=== PATIENT | female | born 1955 | race Caucasian/White ===

== ENCOUNTER 2016-02-29 20:37 | Inpatient (IN) | payer OTHER ==
[~2016-02-29] VITALS: Ht 154.9 cm; Wt 59.6 kg
[~2016-02-29 20:37] MED LIST: ALPR0.5T PO; ASPI81TA50 PO; CA C1TAB38 PO; CANA100T PO; CELE200C PO; CRAN200C PO; CYAN100T PO; DICL100G7 TP; DULO60CA6 PO; GABA-585 PO; GLIM1TAB2 PO; INSU100I17 SQ; INSU100I9 SQ; INSU100V13 SQ; INSU100V4 SQ; LIDO700A4 TP; LOSA25TA PO; LOSA25TA4 PO; MELO-150 PO; MULT-245 PO; OMEG1CAP6 PO; OXYC-244 PO; OXYC-250 PO; OXYC-323 PO; OXYC10TA PO; OXYC1TAB7 PO; PANT40TA5 PO; PENT400T2 PO; PRAV10TA2 PO; PRAV40TA2 PO; SERT25TA PO; SITA100T PO; trental
--- NOTE | 2016-02-29 21:27 | PHYS DOC ---
Past Medical History Past Medical History: Diabetes-Type II, Hypertension Past Surgical History: Appendectomy, Cholecystectomy, Hysterectomy, Other Additional Past Surgical Histo: ectopic pregnancies x2, pulmonary embolism, ABD aortic bypass w bifurcation Alcohol Use: None Drug Use: None Adult General Chief Complaint Chief Complaint: HYPOGLYCEMIA HPI HPI Patient is a 60 year old female who presents with complaint of generalized weakness. Patient was brought to the emergency department by EMS. Per report, the patient has had 2 visits by EMS today for low blood sugar. The patient was found to be significantly altered on both visits. This morning patient was found have a blood sugar of 14 and was given IV dextrose with improvement in blood sugar and mental status. At that time the patient denied transfer for further evaluation. The patient again was found by family to have altered mental status earlier this evening or patient was again found to have low blood sugar with a level of 17. Patient was administered IV dextrose and improved. The patient is currently complaining of nausea. Patient is also experiencing low back pain which is chronic. Patient rates her pain as 8 out of 10. Patient states that this pain is typical of her chronic pain. Patient is on insulin for treatment of diabetes. Patient states that she has not felt hungry and thus has not been eating today. Family states that the patient has been having more frequent episodes of low blood sugar and altered mental status and has been experiencing frequent falls at home. Review of Systems Review of Systems Constitutional: Generalized weakness, Denies fever or chills [] Eyes: Denies change in visual acuity, redness, or eye pain [] HENT: Denies nasal congestion or sore throat [] Respiratory: Denies cough or shortness of breath [] Cardiovascular: Denies chest pain or edema [] GI: Nausea, denies abdominal pain, vomiting, bloody stools or diarrhea [] : Denies dysuria or hematuria [] Musculoskeletal: Chronic back pain [] Integument: Denies rash or skin lesions [] Neurologic: Confusion, Denies headache, focal weakness or sensory changes [] Endocrine: Denies polyuria or polydipsia [] Current Medications Current Medications Current Medications Medications (Trade) Dose Ordered Sig/Jo Start Time Stop Time Status Last Admin Dose Admin Acetaminophen (Tylenol) 650 mg PRN Q4HRS PRN 02/29/16 22:00 03/01/16 21:59 02/29/16 22:18 650 MG Dextrose/Sodium Chloride (Iv D5% - 1/2 NS) 1,000 ml @ 125 mls/hr 1X ONCE 02/29/16 22:00 03/01/16 05:59 02/29/16 21:51 125 MLS/HR Ondansetron HCl (Zofran) 4 mg 1X ONCE 02/29/16 22:00 02/29/16 22:01 DC 02/29/16 21:50 4 MG Ondansetron HCl 4 mg 4 mg PRN Q8HRS PRN 02/29/16 22:00 03/01/16 21:59 Sodium Chloride (Iv Sodium Chloride 0.9% 1000ml Bag) 1,000 ml @ 75 mls/hr [id number] 02/29/16 22:00 03/01/16 21:59 Allergies Allergies Allergies Coded Allergies Type Severity Reaction Last Updated Verified hydrocodone Adverse Reaction Intermediate LOOPY 03/11/15 Yes Physical Exam Physical Exam Constitutional: Alert, afebrile, appears in mild discomfort. [] HENT: Normocephalic, atraumatic, bilateral external ears normal, oropharynx moist, no oral exudates, nose normal. [] Eyes: PERRLA, EOMI, conjunctiva normal, no discharge. [] Neck: Normal range of motion, no tenderness, supple, no stridor. [] Cardiovascular:Heart rate regular rhythm, no murmur [] Lungs & Thorax: Bilateral breath sounds clear to auscultation [] Abdomen: Bowel sounds normal, soft, no tenderness, no masses, no pulsatile masses. [] Skin: Warm, dry, no erythema, no rash. [] Back: No tenderness, no CVA tenderness. [] Extremities: No tenderness, no cyanosis, no clubbing, ROM intact, no edema. [] Neurologic: Alert and oriented X 3, disoriented to events, normal motor function , normal sensory function, no focal deficits noted. [] Current Patient Data Vital Signs Vital Signs Date Time Temp Pulse Resp B/P Pulse Ox O2 Delivery O2 Flow Rate FiO2 02/29/16 20:41 97.4 100 20 165/107 99 Room Air 97.4 Lab Values Laboratory Tests Test 02/29/16 21:01 02/29/16 21:40 02/29/16 22:25 White Blood Count 15.5x10^3/uL (4.0-11.0) H Red Blood Count 5.08x10^6/uL (3.50-5.40) Hemoglobin 13.8g/dL (12.0-15.5) Hematocrit 41.8% (36.0-47.0) Mean Corpuscular Volume 82fL (79-100) Mean Corpuscular Hemoglobin 27pg (25-35) Mean Corpuscular Hemoglobin Concent 33g/dL (31-37) Red Cell Distribution Width 18.0% (11.5-14.5) H Platelet Count 432x10^3/uL (140-400) H Neutrophils (%) (Auto) 84% (31-73) H Lymphocytes (%) (Auto) 10% (24-48) L Monocytes (%) (Auto) 6% (0-9) Eosinophils (%) (Auto) 0% (0-3) Basophils (%) (Auto) 1% (0-3) Neutrophils # (Auto) 13.0x10^3uL (1.8-7.7) H Lymphocytes # (Auto) 1.5x10^3/uL (1.0-4.8) Monocytes # (Auto) 0.9x10^3/uL (0.0-1.1) Eosinophils # (Auto) 0.0x10^3/uL (0.0-0.7) Basophils # (Auto) 0.1x10^3/uL (0.0-0.2) Segmented Neutrophils % 84% (35-66) H Band Neutrophils % 1% (0-9) Lymphocytes % 12% (24-48) L Monocytes % 3% (0-10) Toxic Granulation Slight Platelet Estimate Adequate (ADEQUATE) Sodium Level 148mmol/L (136-145) H Potassium Level 3.0mmol/L (3.5-5.1) L Chloride Level 105mmol/L (98-107) Carbon Dioxide Level 28mmol/L (21-32) Anion Gap 15 (6-14) H Blood Urea Nitrogen 12mg/dL (7-20) Creatinine 1.0mg/dL (0.6-1.0) Estimated GFR (Cockcroft-Gault) 56.7 BUN/Creatinine Ratio 12 (6-20) Glucose Level 82mg/dL (70-99) Calcium Level 10.2mg/dL (8.5-10.1) H Magnesium Level 2.0mg/dL (1.8-2.4) Total Bilirubin 0.6mg/dL (0.2-1.0) Aspartate Amino Transferase (AST) 31U/L (15-37) Alanine Aminotransferase (ALT) 16U/L (14-59) Alkaline Phosphatase 162U/L (46-116) H Total Protein 8.5g/dL (6.4-8.2) H Albumin 2.7g/dL (3.4-5.0) L Albumin/Globulin Ratio 0.5 (1.0-1.7) L Lipase 49U/L (73-393) L Urine Collection Type Void Urine Color Straw Urine Clarity Clear Urine pH 7.0 Urine Specific Cass <=1.005 Urine Protein 100mg/dL (NEG-TRACE) Urine Glucose (UA) Negativemg/dL (NEG) Urine Ketones (Stick) Negativemg/dL (NEG) Urine Blood Trace (NEG) Urine Nitrite Negative (NEG) Urine Bilirubin Negative (NEG) Urine Urobilinogen Dipstick 0.2mg/dL (0.2 mg/dL) Urine Leukocyte Esterase Negative (NEG) Urine RBC Rare/HPF (0-2) Urine WBC 0/HPF (0-4) Urine Squamous Epithelial Cells Few/LPF Urine Bacteria Few/HPF (0-FEW) Glucose (Fingerstick) 49mg/dL (70-99) L Laboratory Tests 02/29/16 21:01 Laboratory Tests 02/29/16 21:01 EKG EKG Interpreted by me: Heart rate 98, sinus tachycardia, normal intervals, normal axis, no acute ST/T-wave abnormalities present [] Radiology/Procedures Radiology/Procedures [facility] [address] [place], [place] [id number] IMAGING REPORT Signed PATIENT: LEIDA MANCERA ACCOUNT: [id number] : 1955 LOCATION: ER AGE: 60 SEX: F EXAM STATUS: REG ER ORD. PHYSICIAN: MARLI ENGLISH MD REASON: altered mental status PROCEDURE: HEAD WO CONTRAST PROCEDURE CT head without intravenous contrast. HISTORY Altered mental status. TECHNIQUE Axial images are obtained of the head from the skull base through the vertex without IV contrast Exposure: One or more of the following individualized dose reduction techniques were utilized for this examination: 1. Automated exposure control. 2. Adjustment of the mA and/or kV according to patient size. 3. Use of iterative reconstruction technique. COMPARISON None. FINDINGS There is mild diffuse cerebral volume loss, greater than expected for patient age.No obvious intracranial mass, mass-effect, midline shift, hemorrhage or obvious acute infarction is identified.Basilar cisterns are patent. Bone windows demonstrate no acute calvarial abnormality.Mild sphenoid sinus disease is seen.. IMPRESSION 1. No acute intracranial process. Please note that CT can be relatively insensitive to acute ischemic infarction for up to 24 hours after symptom onset. 2. Mild cerebral volume loss, greater than expected for patient age. Electronically signed by: Ignacio Moore MD (Feb 29, 2016 21:52:41) DICTATED and SIGNED BY: IGNACIO MOORE MD DATE: 02/29/162151 CC: MARLI ENGLISH MD; CARLENE SARAH MD ~ One view AP chest x-ray interpreted by me: No infiltrate, no effusions, normal cardiac silhouette [] Course & Med Decision Making Course & Med Decision Making Pertinent Labs and Imaging studies reviewed. (See chart for details) Patient was able to tolerate oral fluids in the emergency department including oranges. However, on reevaluation of patient's blood sugar, she dropped a 49. The patient's symptoms are likely due to lack of oral intake coupled with patient being on long-acting insulin. The patient was placed on D5 half-normal saline for refractory hypoglycemia. The patient will be admitted for further evaluation and treatment. I spoke with Dr. Sarah who accepted care of patient in hospital. Dragon Disclaimer Dragon Disclaimer This electronic medical record was generated, in whole or in part, using a voice recognition dictation system. Departure Departure Impression: Primary Impression: Hypoglycemia Additional Impressions: Frequent falls Severe protein-calorie malnutrition Hypokalemia Disposition: ADMITTED INPATIENT Admitting Physician: Carlene Sarah Condition: STABLE Referrals: CARLENE SARAH MD (PCP) Problem Qualifiers MARLI ENGLISH MD Feb 29, 2016 21:28
[2016-02-29 21:45] LABS: BASO # 0.1 x10^3/uL (0.0-0.2); BASO % 1 % (0-3); EOS % 0 % (0-3); HEMATOCRIT 41.8 % (36.0-47.0); HEMOGLOBIN 13.8 g/dL (12.0-15.5); LYMPH # 1.5 x10^3/uL (1.0-4.8); LYMPH % 10 % (24-48); MEAN CORPUSCULAR HEMOGLOBIN 27 pg (25-35); MEAN CORPUSCULAR HGB CONC 33 g/dL (31-37); MEAN CORPUSCULAR VOLUME 82 fL (79-100); MONO % 6 % (0-9); NEUT % 84 % (31-73); PLATELET COUNT 432 x10^3/uL (140-400); RED BLOOD COUNT 5.08 x10^6/uL (3.50-5.40); WHITE BLOOD COUNT 15.5 x10^3/uL (4.0-11.0)
[2016-02-29 21:51] LABS: BILIRUBIN,URINE NEGATIVE (NEG); GLUCOSE,URINE NEGATIVE (NEG); NITRITE,URINE NEGATIVE (NEG); PROTEIN,URINE 100 mg/dL (NEG-TRACE); UROBILINOGEN,URINE 0.2 mg/dL (0.2 mg/dL)
--- NOTE | 2016-02-29 21:53 | RAD ---
PROCEDURE CT head without intravenous contrast. HISTORY Altered mental status. TECHNIQUE Axial images are obtained of the head from the skull base through the vertex without IV contrast Exposure: One or more of the following individualized dose reduction techniques were utilized for this examination: 1. Automated exposure control. 2. Adjustment of the mA and/or kV according to patient size. 3. Use of iterative reconstruction technique. COMPARISON None. FINDINGS There is mild diffuse cerebral volume loss, greater than expected for patient age.No obvious intracranial mass, mass-effect, midline shift, hemorrhage or obvious acute infarction is identified.Basilar cisterns are patent. Bone windows demonstrate no acute calvarial abnormality.Mild sphenoid sinus disease is seen.. IMPRESSION 1. No acute intracranial process. Please note that CT can be relatively insensitive to acute ischemic infarction for up to 24 hours after symptom onset. 2. Mild cerebral volume loss, greater than expected for patient age. Electronically signed by: Ignacio Jordan MD (Feb 29, 2016 21:52:41)
[2016-02-29 21:54] LABS: CALCIUM 10.2 mg/dL (8.5-10.1); GFR 56.7
[2016-02-29 21:59] LABS: BACTERIA,URINE FEW /HPF (0-FEW); RBC,URINE RARE /HPF (0-2); SQUAMOUS EPITHELIAL CELL,UR FEW /LPF; WBC,URINE 0 /HPF (0-4)
[2016-02-29 21:59] LABS: ALBUMIN 2.7 g/dL (3.4-5.0); ALBUMIN/GLOBULIN RATIO 0.5 (1.0-1.7); TOTAL BILIRUBIN 0.6 mg/dL (0.2-1.0); TOTAL PROTEIN 8.5 g/dL (6.4-8.2)
[2016-02-29] MEDS ORDERED: IV NORMAL SALINE 1000ML BAG 1,000 ML IV SCH (22:00)
[2016-02-29] MEDS ORDERED: ONDANSETRON PF 4 MG/2 ML VIAL. IV ONE (22:00)
[2016-02-29] MEDS ORDERED: IV DEXTROSE 5 %-0.45 % NACL 1,000 ML IV ONE (22:00)
[2016-02-29] MEDS ORDERED: ONDANSETRON PF 4 MG/2 ML VIAL. IV PRN (22:00)
[2016-02-29 22:04] LABS: PLT ESTIMATE ADEQUATE (ADEQUATE); TOXIC GRANULATION SLIGHT
--- NOTE | 2016-02-29 22:10 | ACF ---
Admission Forms Criteria GENERAL ADMISSION CRITERIA (Place 'X' for any and all applicable criteria): Admission is indicated for ANY ONE of the following: [ ]I. Hemodynamic instability as indicated by ANY ONE of the following(1)(2) (3)(4)(5): [ ]a) Vital sign abnormality not readily corrected by appropriate treatment within 12 to 24 hours indicated by ANY ONE of the following: [ ]i) Hypotension [ ]ii) Symptomatic Tachycardia unresponsive to treatment (eg , analgesia, fluids, sedation as indicated) [ ]iii) Orthostatic vital sign changes unresponsive to treatment (eg, fluids) [ ]b) Vital sign abnormality that is severe indicated by ANY ONE of the following: [ ]i) Inadequate perfusion indicated by ANY ONE of the following: [ ]1) Lactic acidosis (greater than 2 mmol/L) [ ]2) New abnormal capillary refill (greater than 3 seconds) [ ]3) Other metabolic acidosis (arterial pH less than 7.35) not otherwise explained [ ]4) Reduced urine output [ ]5) Altered mental status [ ]6) Myocardial Ischemia [ ]v) Mean arterial pressure[A] less than 60 mm Hg [ ]vi) Mean arterial pressure[A] less than 70 mm Hg after 30 minutes of appropriate treatment (eg, fluid resuscitation) [ ]vii) IV inotropic or vasopressor medication required to maintain adequate blood pressure or perfusion [ ]viii) Sustained heart rate greater than 120 beats per minute in adult or child 6 years or older[B]] [ ]II. Hypertension requiring inpatient treatment as indicated by ANY ONE of the following(6)(7)(8): [ ]a) SBP greater than 220 mm Hg or DBP greater than 120 mm Hg despite treatment [ ]b) SBP greater than 140 mm Hg or DBP greater than 100 mm Hg with evidence of acute end organ damage as indicated by ANY ONE of the following: [ ]i) Encephalopathy [ ]ii) Acute renal failure as indicated by new onset of ANY ONE of the following(9)(10)(11)(12)(13): [ ]1) A 3-fold rise in serum creatinine from baseline [ ]2) Serum creatinine greater than 4 mg/dL ( 354 micromoles/L) with acute rise greater than 0.5 mg/dL (44.2 micromoles/L) [ ]3) Reduction of more than 75% in estimated glomerular filtration rate from baseline [ ]4) Estimated glomerular filtration rate less than 35 mL/min/1.73m2 (0.59 mL/sec/1.73m2) in child up to 18 years of age [ ]5) Cessation of urine output indicated by ALL of the following: [ ]A. Adequate volume status [ ]B. Inadequate urine output as indicated by ANY ONE of the following: [ ]a. Urine output less than 0.3 mL/kg/hr for 24 hours [ ]b. Anuria (urine output less than 0.1 mL/kg/hr) for 12 hours [ ]iii) Aortic dissection [ ]iv) Myocardial ischemia [ ]v) Left ventricular heart failure [ ]vi) Retinal hemorrhage [ ]vii) Other significant finding [ ]c) Hypertension in child requiring inpatient treatment as indicated by ALL of the following(14)(15)(16): [ ]i) Outpatient treatment not effective, not available, or not appropriate [ ]ii) SBP or DBP greater than 95th percentile for age [ ]iii) Evidence of acute end organ damage as indicated by ANY ONE of the following: [ ]1) Altered mental status [ ]2) Acute renal failure as indicated by new onset of ANY ONE of the following(9)(10)(11)(12)(13): [ ]A. A 3-fold rise in serum creatinine from baseline [ ]B. Serum creatinine greater than 4 mg/dL (354 micromoles/L) with acute rise greater than 0.5 mg/dL (44.2 micromoles/L) [ ]C. Reduction of more than 75% in estimated glomerular filtration rate from baseline [ ]D. Estimated glomerular filtration rate less than 35 mL/min/1.73m2 (0.59 mL/sec/1.73m2)in child up to 18 years of age [ ]E. Cessation of urine output indicated by ALL of the following: [ ]a. Adequate volume status [ ]b. Inadequate urine output as indicated by ANY ONE of the following: [ ]1) Urine output less than 0.3 mL/kg/hr for 24 hours [ ]2) Anuria (urine output less than 0.1 mL/kg/hr) for 12 hours [ ]3) Severe headache [ ]4) Visual disturbance [ ]5) Retinal hemorrhage [ ]6) Other significant finding [ ]III. Acute cardiac or peripheral ischemia as indicated by ANY ONE of the following: [ ]a) Acute coronary syndrome(17)(18) [ ]b) Acute peripheral ischemia (eg, pulseless, cool, mottled, or cyanotic extremity)(19) [ ]IV. Cardiac arrhythmias or findings of immediate concern indicated by ANY ONE of the following(20)(21): [ ]a) Heart rhythms that are inherently dangerous or unstable indicated by ANY ONE of the following(22)(23)(24): [ ]i) Resuscitated ventricular fibrillation or cardiac arrest [ ]ii) Ventricular escape rhythm [ ]iii) Sustained ventricular tachycardia (30 seconds or more of ventricular rhythm at greater than 100 beats per minute) [ ]iv) Nonsustained ventricular tachycardia and ANY ONE of the following: [ ]1) Suspected cardiac ischemia as cause or consequence of ventricular tachycardia [ ]2) In setting of acute myocarditis [ ]b) Unstable cardiac conduction defects indicated by ANY ONE of the following(24)(25)(26): [ ]i) Type II second-degree atrioventricular block [ ]ii) Third-degree atrioventricular block [ ]iii) New-onset left bundle branch block with suspected myocardial ischemia [ ]c) Any heart rhythm and ANY ONE of the following(22)(23)(27)(28)( 29): [ ] i) Continuous long-term ECG monitoring needed (eg, initiation of drug requiring monitoring for more than 24 hours) [ ] ii) Patient has automatic implanted cardioverter defibrillator that is repeatedly firing, malfunctioning, or in need of immediate adjustment of settings beyond the scope of ambulatory or observation care. [ ]d) Heart rhythms of concern due to ANY ONE of the following: [ ]i) Hypotension [ ]ii) Respiratory distress [ ]iii) Association with other significant symptoms (eg, bradycardia with syncope or ongoing dizziness, supraventricular tachycardia with chest pain) (27)(28) (30) [ ] V. Severe heart failure as indicated by ANY ONE of the following ( 31)(32): [ ]a) Respiratory distress [ ]b) Hypotension [ ]c) Anasarca (refractory to outpatient therapy) [ ]d) Cardiac arrhythmias of immediate concern [ ]e) Myocardial ischemia [ ]. Respiratory abnormalities, including ANY ONE of the following(33)(34) (35)(36): [ ]a) Respiratory rate greater than 30 breaths per minute unresponsive to treatment [A] [ ]b) New saturation of arterial oxygen less than 90% [ ]c) New partial pressure of carbon dioxide greater than 44 mm Hg ( 5.9 kPa) [ ]d) Supplemental oxygen or respiratory treatments needed that are new or not performable at other levels of care [ ]e) New-onset cyanosis [ ]f) Inability to protect airway [ ]g) Chronic lung disease with severe deterioration (not responsive to emergency and observation care treatment as appropriate) as indicated by ANY ONE of the following(34)(36 ): [ ]i) SaO2 5% below baseline in patient with chronic hypoxemia [ ]ii) New requirement for supplemental oxygen to keep SaO2 at baseline or acceptable level [ ]iii) Required supplemental oxygen performable only in acute inpatient setting [ ]iv) Severe airflow or ventilation abnormalities [ ]v) Previously mobile patient unable to walk between rooms [ ]vi Inability to eat or sleep due to dyspnea [ ]vii) Rapid rate of exacerbation onset [ ]viii) Altered mental status ]VII. Severe airflow or ventilation abnormalities (not responsive to emergency and observation care treatment as appropriate) as indicated by ANY ONE of the following(33)(34)(35)(37): [ ]a) PCO2 greater than 42 mm Hg (5.6 kPa) and pH less than 7.35 (new ) [ ]b) Documented PCO2 increased more than 5 mm Hg (0.7 kPa) from disease baseline [ ]c) Airflow measurements [B] less than 60% of previous best or predicted (eg, peak expiratory flow rate less than 300 L/minute) despite intensive emergent treatment [C] [ ]d) Required respiratory treatments that are performable only in acute inpatient setting [ ]VIII. Impending or actual respiratory arrest ( Also use Respiratory Failure GRG for severe respiratory disease and long-term mechanical ventilation patients) [ ]IX. Neurologic abnormalities, including ANY ONE of the following: [ ]a) New findings that suggest ANY ONE of the following: [ ]i) MGMT SPECIALIST infection(38) [ ]ii) Cerebral bleeding, ischemia, or vasospasm(39)(40) [ ]iii) Increased intracranial pressure, hydrocephalus, or cerebral edema(41)(42)(43) [ ]iv) Spinal cord injury(44) [ ]b) Uncontrolled seizures(45) [ ]c) New-onset coma (eg, Doe coma scale score less than 9) or unexplained abnormal mental status (eg, Doe coma scale score less than 14) [D](41)(46)(47) [ ]X. New-onset severe neurologic findings requiring inpatient care; examples include(42)(48)(49): [ ]a) Papilledema [ ]b) Cerebral edema [ ]c) Mass effect on CT scan [ ]XI. Suspected acute intra-abdominal process with peritoneal signs, abdominal mass, or similar findings (50)(51)(52) [ X]XII. Severe physiologic disorder remaining after emergency or observation level care (as appropriate) as indicated by ANY ONE of the following (53): [ ]a) Significant dehydration [ ]b) Diabetic ketoacidosis [ ]c) Hyperglycemic hyperosmolar state (eg, osmolality greater than 320 mOsm/kg (mmol/kg) [ X]d) Hypoglycemia [ ]e) Other (new) acid-base disorder with pH less than 7.35 or greater than 7.5(54) [ ]f) Thyroid storm (55) [ ]g) Myxedema coma (55) [ ]XIII. Abdominal abnormalities with ANY ONE of the following(56)(57): [ ]a) Absent bowel sounds with complete ileus [ ]b) Signs of intestinal obstruction or peritonitis [E] [ ]c) Nausea and vomiting that cannot be controlled with outpatient or observation care [ ]XIV. Acute renal failure as indicated by new onset of ANY ONE of the following(9)(10)(11)(12)(13): [ ]a) A 3-fold rise in serum creatinine from baseline [ ]b) Serum creatinine greater than 4 mg/dL (354 micromoles/L) with acute rise greater than 0.5 mg/dL (44.2 micromoles/L) [ ]c) Reduction of more than 75% in estimated glomerular filtration rate from baseline [ ]d) Estimated glomerular filtration rate less than 35 mL/min/ 1.73m2 (0.59 mL/sec/1.73m2) in child up to 18 years of age [ ]e) Cessation of urine output indicated by ALL of the following: [ ]i) Adequate volume status [ ]ii) Inadequate urine output as indicated by ANY ONE of the following: [ ]1) Urine output less than 0.3 mL/kg/hr for 24 hours [ ]2) Anuria (urine output less than 0.1 mL/kg/hr) for 12 hours [ ]XV. Significant uremic complications as indicated by ANY ONE of the following(58)(59)(60): [ ]a) Outpatient therapy is ineffective or not feasible for ANY ONE of the following: [ ]i) Severe heart failure [ ]ii) Severehypertension [ ]iii) Pleural effusion [ ]iv) Pericarditis or pericardial effusion [ ]b) Cardiac arrhythmias of immediate concern [ ]c) Intractable nausea or vomiting [ ]d) Recurrent seizures [ ]e) Encephalopathy [ ]f) Bleeding abnormalities (eg, platelet dysfunction) with active (eg, gastrointestinal) bleeding [ ]g) Dialysis indicated before long-term access or ambulatory arrangements can be made [ ]h) Significant metabolic or electrolyte abnormalities (eg, severe acidosis or hyperkalemia) [ ]XVI. High fever or other high-risk infection situation as indicated by ANY ONE of the following(61)(62)(63)(64): [ ]a) Outpatient and observation care antimicrobial treatment unavailable, not effective, or not appropriate [ ]b) Documented bacteremia [ ]c) Temperature greater than 40.5 degrees C (104.9 degrees F) ( oral) [ ]d) Temperature greater than 39.5 degrees C (103.1 degrees F) ( oral) or less than 36 degrees C (96.8 degrees F) (rectal) that does not respond to e treatment and observation care [ ] XVII. Temperature less than 95 degrees F (35 degrees C)(rectal)(65) [ ] XVIII. Severe nutritional abnormalities as indicated by ALL of the following (66)(67): [ ]a) Inability to tolerate or establish sufficient oral or other enteral nutrition in outpatient setting [ ]b) Parenteral nutrition regimen need that must be implemented on inpatient basis [ ] XIX. Severe electrolyte abnormalities indicated by ALL of the following(68) (69)(70): [ ]a) Electrolytes and associated findings are not as expected for patient baseline or acceptable treatment effects. [ ]b) Severe abnormalities indicated by ANY ONE of the following: [ ]i) Sodium less than 130 mEq/L (mmol/L) (new) [ ]ii)Sodium less than 135 mEq/L (mmol/L) with ANY ONE of the following: [ ]1) Uncorrectable (to near normal or chronic baseline) after trial of outpatient and emergency treatment [ ]2) Altered mental status [ ]3) Seizures [ ]4) Severe medical etiology requiring inpatient management (eg, heart failure, hypovolemia) [ ]iii) Sodium greater than 155 mEq/L (mmol/L) [ ]iv) Sodium greater than 150 mEq/L (mmol/L) with ANY ONE of the following: [ ]1) Uncorrectable (to near normal or chronic baseline) with outpatient and emergency treatment [ ]2) Altered mental status [ ]3) Seizures [ ]4) Severe medical etiology (eg, hypovolemia, diabetes insipidus) [ ]v) Potassium less than 2.5 mEq/L (mmol/L) despite outpatient and emergency treatment [ ]vi) Potassium less than 3 mEq/L (mmol/L) with ANY ONE of the following: [ ]1) Weakness [ ]2) Cardiac abnormality (eg, arrhythmia, conduction disturbance) [ ]3) Cardiac ischemia [ ]4) Ileus [ ]5) Ongoing medical cause requiring inpatient management (eg, acute renal wasting or SIADH) [ ]6) Other severe symptoms [ ]vii) Potassium greater than 6.5 mEq/L (mmol/L) [ ]viii) Potassium greater than 5 mEq/L (mmol/L) with ANY ONE of the following: [ ]1) Uncorrectable (to near normal or chronic baseline) with outpatient and emergency treatment [ ]2) Severe ECG findings [F] [ ]3) Acute worsening of renal failure (creatinine greater than 2.5 mg/dL (221 micromoles/L) or significant elevation for age and size) [ ]4) Severe weakness [ ]5) Severe medical etiology (eg, hemolysis, infection, drug overdose) [ ]ix) Calcium less than 7 mg/dL (1.75 mmol/L) despite outpatient and emergency treatment (72) [ ]x) Calcium less than 8 mg/dL (2 mmol/L) with significant symptoms or findings; examples include(72): [ ]1) Altered mental status [ ]2) Muscle spasms [ ]3) Seizures [ ]4) Breathing difficulty [ ]5) Cardiac abnormality (eg, arrhythmia or conduction disturbance) [ ]xi) Calcium greater than 14 mg/dL (3.5 mmol/L)(72) [ ]xii) Calcium greater than 12 mg/dL (3 mmol/L) with ANY ONE of the following(72): [ ]1) Uncorrectable (to near normal or chronic baseline) with outpatient and emergency treatment [ ]2) Significant dehydration or hypovolemia as indicated by ALL of the following(70)(73)(74): [ ]A. Not resolved with initial treatments [ ]B. Clinically significant dehydration as indicated by ANY ONE of the following: [ ]a. Vomiting refractory to outpatient treatment (ie, precluding oral rehydration) [ ]b. Inability to drink [ ]c. Hypernatremia or other electrolyte abnormality unable to be corrected with outpatient and emergency treatment [ ]d. Failure to remain hydrated with outpatient therapy [ ]e. Reduced urine output [ ]f. Hypotension [ ]g. Serious cause for dehydration requiring acute hospitalization (eg, bowel obstruction, increased intracranial pressure, infectious cause) [ ]h. Child with ANY ONE of the following(75): [ ]1) Severe abdominal tenderness [ ]2) Adequate care not available at home [ ]3) Severe dehydration ( greater than 9% loss of body weight) [ ]4) Significant symptoms or findings; examples include: [ ]A. Altered mental status [ ]B. Cardiac abnormality (eg, arrhythmia, conduction disturbance) [ ]C. Malignant etiology requiring inpatient treatment [ ]xiii) Phosphorus less than 1 mg/dL (0.32 mmol/L) [ ]xiv) Phosphorus less than 1.5 mg/dL (0.48 mmol/L) with ANY ONE of the following: [ ]1) Patient unresponsive to outpatient and emergency treatment [ ]2) Significant symptoms or findings; examples include: [ ]A. Weakness [ ]B. Altered mental status [ ]C. Breathing difficulty [ ]D. Seizures [ ]E. Rhabdomyolysis [ ]xv) Phosphorus greater than 10 mg/dL (3.2 mmol/L) [ ]xvi) Phosphorus greater than 4.5 mg/dL (1.45 mmol/L) (new) with ANY ONE of the following: [ ]1) Severe medical etiology (eg, crush injury, acute renal failure) [ ]2) Associated hypocalcemia with significant findings; examples include: [ ]A. Neurologic symptoms [ ]B. Altered mental status [ ]C. Muscle spasms [ ]D. Seizures [ ]E. Breathing difficulty [ ]F. Cardiac abnormality (eg, arrhythmia, conduction disturbance) [ ]xvii) Magnesium less than 1 mg/dL (0.41 mmol/L) [ ]xviii) Magnesium less than 1.5 mg/dL (0.62 mmol/L) with ANY ONE of the following: [ ]1) Patient unresponsive to outpatient and emergency treatment [ ]2) Associated hypocalcemia with significant findings; examples include: [ ]A. Altered mental status [ ]B. Muscle spasms [ ]C. Seizures [ ]D. Breathing difficulty [ ]E. Cardiac abnormality (eg, arrhythmia , conduction disturbance) [ ]3) Associated hypokalemia (potassium less than 3 mEq/L (mmol/L)) with risk of arrhythmia [ ]xix) Magnesium greater than 4 mEq/L (2 mmol/L) [ ]xx) Magnesium greater than 2.5 mEq/L (1.25 mmol/L) with significant symptoms or findings; examples include: [ ]1) Weakness [ ]2) Altered mental status [ ]3) Cardiac abnormality (eg, arrhythmia, conduction disturbance) [ ]4) Breathing difficulty [ ]5) Severe medical etiology (eg, renal failure, hypovolemia) [ ]xxi) Uric acid greater than 20 mg/dL (1190 micromoles/L)(76) [ ]xxii) Uric acid greater than 8 mg/dL (476 micromoles/L) with significant symptoms or findings of tumor lysis syndrome; examples include(76): [ ]1) Creatinine greater than 1.5 times upper limit of normal [ ]2) Cardiac abnormality (eg, arrhythmia, conduction disturbance) [ ]3) Seizure [ ]XX. Acute blood loss causing significant abnormality as indicated by ANY ONE of the following(77)(78): [ ]a) Hemoglobin less than 10 g/dL (100 g/L) (not baseline) [ ]b) Hematocrit less than 30% (0.30) (not baseline) [ ]c) Repeat hematocrit decreased more than 2% (0.02) [ ]d) Uncontrolled bleeding [ ]XXI. Severe anemia indicated by ANY ONE of the following(78)(79): [ ]a) Altered mental status [ ]b) Chest pain [ ]c) Exertional dyspnea [ ]d) Syncope [ ]e) Other findings suggesting inadequate perfusion [ ]f) Treatment with transfusion or volume replacement is ineffective at resolving ANY ONE of the following [G]: [ ]i) Tachycardia for age [ ]ii) Orthostatic vital sign changes as indicated by ANY ONE of the following(80): [ ]1) Fall in SBP of 20 mm Hg or more 1 to 3 minutes after patient sits or stands from recumbent position [ ]2) Fall in DBP of 10 mm Hg or more 1 to 3 minutes after patient sits or stands from recumbent position [ ]XXII. High-risk low platelet count as indicated by ANY ONE of the following( 81)(82): [ ]a) Severe or life-threatening bleeding (eg, intracranial, major gastrointestinal, or extensive mucosal bleeding), with any reduced platelet count [ ]b) Platelet count less than 20,000/mm3 (20 x109/L) with any active bleeding [ ]c) Platelet count less than 10,000/mm3 (10 x109/L) with minor purpura or petechiae [ ]d) Platelet count less than 5000/mm3 (5 x109/L) [ ]e) Low platelet count with hemolytic anemia [ ]XXIII. Disseminated intravascular coagulation(77)(83) [ ]XXIV. Severe adverse drug or systemic toxin reaction requiring inpatient treatment; examples include(84)(85): [ ]a) Serotonin syndrome(86) [ ]b) Neuroleptic malignant syndrome(86) [ ]c) Cholinergic syndrome with severe symptoms (eg, bronchorrhea, weakness, mental status changes, seizures) [ ]d) Sympathetic syndrome with severe symptoms (eg, seizures, mental status changes, cardiac dysrhythmias) [ ]e) Anticholinergic syndrome [ ]XXV. Severe pain requiring acute inpatient management as indicated by ALL of the following (87)(88)(89): [ ]a) Continuous or frequent (eg, every 2 to 4 hours) parenteral analgesics required [H] [ ]b) Rapid improvement expected from treatment or acute intervention (eg, surgery, anesthesia procedure) [ ]XXVI.Severe behavioral health issues judged unmanageable at a lower level of care (eg, residential) in a patient who is ANY ONE of the following(91) [ ]a) Acutely suicidal [ ]b) A danger to self (eg, self-mutilating or suicidal behavior) [ ]c) A danger to others (eg, assaultive or homicidal behavior) [ ]d) Incapacitated because of grave disability (eg, inability to provide for self at lower level of care) (92) [ ]XXVII. Inpatient monitoring needed; examples include(1)(3)(87)(93)(94)(95)(96 ): [ ]a) Vital signs, neurologic signs, or vascular checks more frequently than every 4 hours [ ]b) Cardiac or respiratory monitoring beyond the scope (eg, over 24 hours) of observation care [ ]c) Pulmonary artery catheter monitoring [ ]d) Suspected compartment syndrome(97) (98) [ ]e) Cerebral bleeding, hydrocephalus, or vasospasm monitoring [ ]f) Increased intracranial pressure or cerebral edema monitoring [ ]g) monitoring [ ]XXVIII. Treatment requiring inpatient care; examples include: [ ]a) IV fluid to replace significant ongoing losses (greater than 3 L/m2 per day)(53) [ ]b) High concentration oxygen (greater than 40%)(33)(99)(100) [ ]c) Frequent respiratory therapy (more frequently than every 4 hours) to maintain airflow rates greater than 60% of baseline(33)(99)(100) [ ]d) Epidural analgesia(87) [ ]e) IV anticoagulation, vasoactive, or antiarrhythmic medication(19 )(23) [ ]f) Acute thrombolytics (generally require 24 hours of observation )(101)(102) [ ]XXIX. Emergency procedures needed; examples include: [ ]a) Emergency inpatient surgery [ ]b) Temporary pacemaker placement(103) [ ]c) Chest tube placement with active evacuation (eg, suction, drainage)(104) [ ]d) Emergent cardioversion(105) [ ]e) Emergent cardiac or vascular procedures (eg, cardiac catheterization, angioplasty) (17)(18) [ ]f) Emergent dialysis access placement and institution(10)(106) [ ]g) Emergent pericardiocentesis(107) [ ]h) Emergent plasmapheresis or leukapheresis(83) [ ]i) Emergent tracheostomy The original [employer] content created by [employer] has been revised. The portions of the content which have been revised are identified through the use of italic text or in bold, and [facility] has neither reviewed nor approved the modified material. All other unmodified content is copyright [employer]. Please see references footnoted in the original [employer] edition 2016 Admission Criteria Met?: Yes GLADYS MOREIRA Feb 29, 2016 22:10
[2016-02-29] MEDS: ACETAMINOPHEN 325 MG TABLET. PO PRN (22:18)
[2016-02-29 23:00] VITALS: BP 137/83
[2016-02-29] MEDS ORDERED: POTASSIUM CHLORIDE 20 MEQ TABLET.ER. PO ONE (23:00)
[2016-02-29] MEDS ORDERED: NICO1PAT25 TP (23:55)
[2016-02-29] MEDS ORDERED: ZOLP10TA PO (23:55)
[2016-02-29] MEDS ORDERED: OXYC20TA PO (23:55)
[2016-03-01] VITALS (7 sets, daily range): BP systolic 79–160; BP diastolic 44–72
[2016-03-01] MEDS ORDERED: OXYCODONE IR 5 MG TABLET. PO PRN (00:15)
[2016-03-01] MEDS ORDERED: ZOLPIDEM 5 MG TABLET. PO PRN (00:15)
[2016-03-01] MEDS ORDERED: ZOLPIDEM 5 MG TABLET. PO ONE (00:30)
[2016-03-01] MEDS ORDERED: DEXTROSE 50% 25 GM / 50ML DISP.SYRIN. IV ONE (05:41)
[2016-03-01] MEDS: IV DEXTROSE 5%-LACT RINGERS 1,000 ML IV SCH ×2 (06:30→15:56)
[2016-03-01 06:35] LABS: BASO # 0.1 x10^3/uL (0.0-0.2); BASO % 1 % (0-3); EOS % 1 % (0-3); HEMATOCRIT 38.1 % (36.0-47.0); HEMOGLOBIN 12.5 g/dL (12.0-15.5); LYMPH # 2.1 x10^3/uL (1.0-4.8); LYMPH % 16 % (24-48); MEAN CORPUSCULAR HEMOGLOBIN 27 pg (25-35); MEAN CORPUSCULAR HGB CONC 33 g/dL (31-37); MEAN CORPUSCULAR VOLUME 82 fL (79-100); MONO % 7 % (0-9); NEUT % 75 % (31-73); PLATELET COUNT 409 x10^3/uL (140-400); RED BLOOD COUNT 4.68 x10^6/uL (3.50-5.40); RED CELL DISTRIBUTION WIDTH 17.8 % (11.5-14.5); WHITE BLOOD COUNT 13.3 x10^3/uL (4.0-11.0)
--- NOTE | 2016-03-01 06:40 | EKG ---
[facility] [address] [place] [address] Test Date: 2016-02-29 Test Time: 20:49:23 Pat Name: LEIDA MANCERA Department: Room: [facility] Gender: F Underwriter: : 1955 Requested By: MARLI ENGLISH Order Number: [id number] Reading MD: Roseann Urbina Measurements Intervals [place] Rate: 98 P: 128 MT: 150 QRS: 84 QRSD: 116 T: -149 QT: 382 QTc: 490 Interpretive Statements SINUS RHYTHM LEFT ATRIAL ABNORMALITY T ABNORMALITY IN INFEROLATERAL LEADS Electronically Signed On 03-03-2016 20:08:05 REPRINT SORTER by Roseann Urbina
[2016-03-01 06:56] LABS: CALCIUM 9.3 mg/dL (8.5-10.1); CREATININE 0.9 mg/dL (0.6-1.0); GFR 64.1
--- NOTE | 2016-03-01 07:44 | RAD ---
Indication weakness. Shortness of breath. A single view of the chest was obtained and is compared to an examination 04/06/2006. Heart size is at the upper limits of normal.. There is a chondroid lesion associated with the left humeral head likely reflecting an enchondroma. The appearance is similar to a study almost 10 years ago. There is mild interstitial prominence relative to the previous exam. It is uncertain whether this reflects a chronic process such as fibrosis or is indicative of mild interstitial edema or even conceivably interstitial pneumonitis. There is no consolidated pneumonia. Significant pleural fluid is not present. There is no pneumothorax. IMPRESSION: No confluent focal infiltrate. Interstitial prominence. See above discussion. Heart size at the upper limits of normal
[2016-03-01] MEDS: PANTOPRAZOLE 40 MG TABLET. PO SCH (08:30)
[2016-03-01] MEDS: DULOXETINE HCL 30 MG CAPSULE.DR. PO SCH (08:31)
[2016-03-01] MEDS: ASPIRIN ENTERIC COATED 81 MG TABLET.DR. PO SCH (08:31)
[2016-03-01] MEDS: PENTOXIFYLLINE ER 400 MG TABLET.ER. PO SCH ×2 (08:31→17:13)
[2016-03-01] MEDS: MELOXICAM 7.5 MG TABLET PO SCH (08:31)
[2016-03-01] MEDS: GABAPENTIN 300 MG CAPSULE. PO SCH ×2 (08:31→20:42)
[2016-03-01] MEDS: NICOTINE 14MG PATCH. TD SCH (08:32)
[2016-03-01] MEDS: LIDOCAINE (700MG/PATCH) PATCH. TP SCH (08:33)
[2016-03-01] MEDS ORDERED: DEXTROSE 50% 25 GM / 50ML DISP.SYRIN. IV PRN (08:45)
--- NOTE | 2016-03-01 08:55 | PDOC ---
Provider Note Provider Note [id number] CARLENE SARAH MD Mar 01, 2016 08:54
[2016-03-01] MEDS ORDERED: SERTRALINE 25 MG TABLET. PO SCH ×2 (09:00)
[2016-03-01] MEDS ORDERED: SERTRALINE 50 MG TABLET. PO SCH (09:00)
[2016-03-01] MEDS: POTASSIUM CHLORIDE 10 MEQ TABLET.ER. PO SCH ×3 (09:53→17:13)
[2016-03-01] MEDS: OXYCODONE IR 5 MG TABLET. PO PRN ×2 (10:32→20:42)
[2016-03-01 10:36] LABS: BARBITURATES NEG (NEG); BENZODIAZEPINES NEG (NEG); CANNABINOIDS NEG (NEG); COCAINE NEG (NEG); METHADONE NEG (NEG); OPIATES NEG (NEG); PHENCYCLIDINE NEG (NEG)
[2016-03-01 10:45] LABS: ETHANOL, URINE NEG (NEG)
--- NOTE | 2016-03-01 11:34 | HP ---
ADMIT DATE: 03/01/2016 CHIEF COMPLAINT: Low blood sugar. HISTORY OF PRESENT ILLNESS: A 60-year-old white female with normally relatively poorly controlled insulin-dependent diabetes, came in with hypoglycemia. She denies recent poor oral intake or any extra insulin administration but has been having episodes of "confusion at home" lately. She has had 2 episodes of low blood sugar since and required D50 and is feeling better now, eating and drinking. PAST MEDICAL HISTORY: Multiple. MEDICATIONS: Listed per the chart. She gets oxycodone from the pain clinic which she generally takes once a day. No new medications. She has been off Zoloft by choice for 1 week. 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 Denies alcohol use. FAMILY HISTORY: Unremarkable. REVIEW OF SYSTEMS: Negative. OBJECTIVE: ENT: Nasal abrasion; otherwise, unremarkable. NECK: No masses, nodes or bruits. LUNGS: Clear. CARDIOVASCULAR: Regular rate. No irregular beat or murmur. ABDOMEN: Benign, soft, nontender. EXTREMITIES: No joint or skin lesions or nail bed findings. NEUROLOGIC: Alert, appropriate, responsive, oriented x 4. Moves all extremities. No tremors. Cranial nerves 3 through 12, motor and sensory intact. GENITOURINARY: Deferred. RECTAL: Deferred. LABORATORY DATA: Showed low potassium; otherwise, unremarkable. IMAGING STUDIES: The CT scan of the head was normal. ASSESSMENT: Hypoglycemia, etiology is unclear as she is normally not well controlled. Recent confusional state, etiology unclear. PLAN: Cancel Ambien and Zoloft, IV glucose p.r.n., no insulin, urine drug screen and follow. CARLENE SARAH MD DR: BENJI/britta JOB#: [id number] / [id number]
[2016-03-01] MEDS: ACETAMINOPHEN 325 MG TABLET. PO PRN (15:57)
[2016-03-01] MEDS: DICLOFENAC SODIUM 1% TOPICAL GEL 100GM TUBE. TP PRN ×2 (15:58→20:42)
[2016-03-01] MEDS ORDERED: ZOLPIDEM 5 MG TABLET. PO SCH (21:00)
[2016-03-02] MEDS: IV DEXTROSE 5%-LACT RINGERS 1,000 ML IV SCH (02:30)
[2016-03-02 03:00] VITALS: BP 146/69
[2016-03-02 07:30] VITALS: BP 154/70
[2016-03-02] MEDS ORDERED: INSULIN DETEMIR 300 UNITS/3 ML INSULN.PEN. SQ STA (08:09)
[2016-03-02] MEDS ORDERED: INSULIN ASPART 300 UNITS/3 ML INSULN.PEN SQ STA (08:09)
[2016-03-02] MEDS: DULOXETINE HCL 30 MG CAPSULE.DR. PO SCH (08:25)
[2016-03-02] MEDS: ASPIRIN ENTERIC COATED 81 MG TABLET.DR. PO SCH (08:26)
[2016-03-02] MEDS: PANTOPRAZOLE 40 MG TABLET. PO SCH (08:26)
[2016-03-02] MEDS: PENTOXIFYLLINE ER 400 MG TABLET.ER. PO SCH (08:26)
[2016-03-02] MEDS: GABAPENTIN 300 MG CAPSULE. PO SCH (08:26)
[2016-03-02] MEDS: POTASSIUM CHLORIDE 10 MEQ TABLET.ER. PO SCH (08:26)
[2016-03-02] MEDS: MELOXICAM 7.5 MG TABLET PO SCH (08:27)
[2016-03-02] MEDS: NICOTINE 14MG PATCH. TD SCH (08:38)
[2016-03-02] MEDS: LIDOCAINE (700MG/PATCH) PATCH. TP SCH (08:39)
--- NOTE | 2016-03-02 10:10 | DISCH ---
DISCHARGE INSTRUCTIONS Condition on Discharge Condition on Discharge: Stable Activity After Discharge Activity Instructions for Disc: No restrictions Diet after Discharge Diet after Discharge: Diabetic No Calorie Level Follow-Up Follow up with: as scheduled CARLENE SARAH MD Mar 02, 2016 10:10
--- NOTE | 2016-03-02 10:13 | PDOC ---
Provider Note Provider Note [id number] CARLENE SARAH MD Mar 02, 2016 10:13
[2016-03-02] MEDS: OXYCODONE IR 5 MG TABLET. PO PRN (10:28)
[2016-03-02] MEDS: DICLOFENAC SODIUM 1% TOPICAL GEL 100GM TUBE. TP PRN (10:28)
[2016-03-02 10:46] VITALS: BP 132/63
--- NOTE | 2016-03-02 11:25 | DS ---
DATE OF DISCHARGE: 03/02/2016 HOSPITAL SUMMARY: The patient came in as an insulin-dependent diabetic normally not well controlled with hypoglycemia; blood sugar was 49 on admission and she received IV glucose and D50 x 2. Blood sugars came up to normal after about 8 hours and remained so. Potassium level was 3.0 and was treated with oral potassium replacement. Urine drug screen was negative and chest x-ray was clear. She also had a CT scan of the head which was normal as well. Blood sugars at the time of dismissal with her eating and drinking well were around 270 and she was given her usual dose Levemir. She is comfortable to be followed as an outpatient at this point. FINAL DIAGNOSES: 1. Insulin-induced hypoglycemia. 2. Hypokalemia. OPERATIONS, PROCEDURES, COMPLICATIONS, AND CONSULTATIONS: None. DISPOSITION: She will continue same dose of insulin for now as her A1c has been high in the office around 8-8.5. If she is eating less, she will call to discuss lower doses of insulin or if any hypoglycemia reoccurs. Rest of home meds remains the same and she has elected to stop Zoloft 2 weeks ago. CARLENE SARAH MD DR: BENJI/britta JOB#: [id number] / [id number]
== END 2016-03-02 13:40 | disposition home or self-care (01) | DRG 637 ==
LOC: ER 20:37 → 6 SOUTH 21:40
PROVIDERS: ADMIT Family Medicine; ATTEND Family Medicine
DX: E11.649 Type 2 diabetes mellitus with hypoglycemia without coma (principal); E43 Unspecified severe protein-calorie malnutrition; E87.6 Hypokalemia; F17.200 Nicotine dependence, unspecified, uncomplicated; G89.29 Other chronic pain; I10 Essential (primary) hypertension; R29.6 Repeated falls; Z79.4 Long term (current) use of insulin; Z86.711 Personal history of pulmonary embolism; Z90.49 Acquired absence of other specified parts of digestive tract; Z68.24 Body mass index [BMI] 24.0-24.9, adult
CPT/HCPCS: 36415; 70450; 71010; 80048; 80053; 81001; 82947; 83605; 83690; 83735; 84132; 85007; 85027; 87040; 93005; 96361; 96374; G0481; J1815; J2405; J7030; J7042; 99285-25

== ENCOUNTER 2016-03-21 15:16 | Inpatient (IN) | payer OTHER ==
[~2016-03-21] VITALS: Ht 154.9 cm; Wt 59.4 kg
[~2016-03-21 15:16] MED LIST changes: +NICO1PAT25 TP; +OXYC20TA PO; +ZOLP10TA PO
[2016-03-21] MEDS ORDERED: IV NORMAL SALINE 1000ML BAG 1,000 ML IV SCH (17:38)
[2016-03-21 18:26] LABS: BASO # 0.1 x10^3/uL (0.0-0.2); BASO % 1 % (0-3); EOS % 1 % (0-3); HEMATOCRIT 38.6 % (36.0-47.0); HEMOGLOBIN 12.6 g/dL (12.0-15.5); LYMPH # 1.9 x10^3/uL (1.0-4.8); LYMPH % 12 % (24-48); MEAN CORPUSCULAR HEMOGLOBIN 27 pg (25-35); MEAN CORPUSCULAR HGB CONC 33 g/dL (31-37); MEAN CORPUSCULAR VOLUME 81 fL (79-100); MONO % 7 % (0-9); NEUT % 79 % (31-73); PLATELET COUNT 426 x10^3/uL (140-400); RED BLOOD COUNT 4.76 x10^6/uL (3.50-5.40); RED CELL DISTRIBUTION WIDTH 18.9 % (11.5-14.5); WHITE BLOOD COUNT 15.5 x10^3/uL (4.0-11.0)
[2016-03-21 18:29] LABS: CALCIUM 9.4 mg/dL (8.5-10.1); GFR 56.7; POTASSIUM 5.1 mmol/L (3.5-5.1)
[2016-03-21 18:35] LABS: ALBUMIN 2.4 g/dL (3.4-5.0); ALBUMIN/GLOBULIN RATIO 0.4 (1.0-1.7); TOTAL BILIRUBIN 0.8 mg/dL (0.2-1.0); TOTAL PROTEIN 8.1 g/dL (6.4-8.2)
[2016-03-21 20:15] LABS: BILIRUBIN,URINE NEGATIVE (NEG); GLUCOSE,URINE >=1000 mg/dL (NEG); NITRITE,URINE NEGATIVE (NEG); PROTEIN,URINE 30 mg/dL (NEG-TRACE); UROBILINOGEN,URINE 0.2 mg/dL (0.2 mg/dL)
[2016-03-21 20:26] LABS: BACTERIA,URINE MODERATE /HPF (0-FEW); RBC,URINE 0 /HPF (0-2); SQUAMOUS EPITHELIAL CELL,UR MANY /LPF; YEAST,URINE PRESENT /HPF
[2016-03-21] MEDS ORDERED: DEXTROSE 50% 25 GM / 50ML DISP.SYRIN. IV PRN (21:15)
[2016-03-21 22:30] VITALS: BP 118/62
[2016-03-21] MEDS ORDERED: INSULIN ASPART 300 UNITS/3 ML INSULN.PEN SQ ONE (23:00)
[2016-03-21] MEDS ORDERED: ACETAMINOPHEN 325 MG TABLET. PO PRN (23:15)
[2016-03-21] MEDS ORDERED: ONDANSETRON PF 4 MG/2 ML VIAL. IV PRN (23:15)
[2016-03-21 23:22] VITALS: BP 111/74
--- NOTE | 2016-03-22 00:43 | ED.ADGEN ---
Past Medical History Past Medical History: Diabetes-Type II, Hypertension Past Surgical History: Appendectomy, Cholecystectomy, Hysterectomy, Other Additional Past Surgical Histo: ectopic pregnancies x2, pulmonary embolism, ABD aortic bypass w bifurcation Alcohol Use: None Drug Use: None Adult General Chief Complaint Chief Complaint: HYPERGLYCEMIA HPI HPI Patient is a 60 year old woman, history of hypertension, type 2 diabetes mellitus, CAD, who presents to the emergency department with complaint of fluctuating blood sugars and generalized malaise. Patient states her sugars have been fluctuating between the 20s to the 400s at home, blood pressure is currently 403 upon arrival to the ED. She complains of generalized malaise, denies any fevers, chills, vomiting, diarrhea, abdominal pain upper respiratory symptoms. Review of Systems Review of Systems Constitutional: Denies fever or chills. [] Eyes: Denies change in visual acuity. [] HENT: Denies nasal congestion or sore throat. [] Respiratory: Denies cough or shortness of breath. [] Cardiovascular: Denies chest pain or edema. [] GI: Denies abdominal pain, nausea, vomiting, bloody stools or diarrhea. [] : Denies dysuria. [] Musculoskeletal: Denies back pain or joint pain. [] Integument: Denies rash. [] Neurologic: Denies headache, focal weakness or sensory changes. [] Endocrine: Denies polyuria or polydipsia. [] Lymphatic: Denies swollen glands. [] Psychiatric: Denies depression or anxiety. [] Current Medications Current Medications Current Medications Medications (Trade) Dose Ordered Sig/Jo Start Time Stop Time Status Last Admin Dose Admin Sodium Chloride (Iv Sodium Chloride 0.9% 1000ml Bag) 1,000 ml @ 1,000 mls/hr Q1H 03/21/16 17:38 03/21/16 18:37 DC 03/21/16 19:01 1,000 MLS/HR Allergies Allergies Allergies Coded Allergies Type Severity Reaction Last Updated Verified hydrocodone Adverse Reaction Intermediate LOOPY 03/11/15 Yes Physical Exam Physical Exam Constitutional: Well developed, well nourished, no acute distress, non-toxic appearance. [] HENT: Normocephalic, atraumatic, bilateral external ears normal, oropharynx moist, no oral exudates, nose normal. [] Eyes: PERRLA, EOMI, conjunctiva normal, no discharge. [] Neck: Normal range of motion, no tenderness, supple, no stridor. [] Cardiovascular:Heart rate regular rhythm, no murmur [] Lungs & Thorax: Bilateral breath sounds clear to auscultation [] Abdomen: Bowel sounds normal, soft, no tenderness, no masses, no pulsatile masses. [] Skin: Warm, dry, no erythema, no rash. [] Back: No tenderness, no CVA tenderness. [] Extremities: No tenderness, no cyanosis, no clubbing, ROM intact, no edema. [] Neurologic: Alert and oriented X 3, normal motor function, normal sensory function, no focal deficits noted. [] Psychologic: Affect normal, judgement normal, mood normal. [] Current Patient Data Vital Signs Vital Signs Date Time Temp Pulse Resp B/P Pulse Ox O2 Delivery O2 Flow Rate FiO2 03/21/16 20:10 90 20 95/64 95 Room Air 03/21/16 17:19 98.6 98.6 Lab Values Laboratory Tests Test 03/21/16 17:12 03/21/16 18:11 03/21/16 20:00 03/21/16 21:07 Glucose (Fingerstick) 414mg/dL (70-99) H 344mg/dL (70-99) H White Blood Count 15.5x10^3/uL (4.0-11.0) H Red Blood Count 4.76x10^6/uL (3.50-5.40) Hemoglobin 12.6g/dL (12.0-15.5) Hematocrit 38.6% (36.0-47.0) Mean Corpuscular Volume 81fL (79-100) Mean Corpuscular Hemoglobin 27pg (25-35) Mean Corpuscular Hemoglobin Concent 33g/dL (31-37) Red Cell Distribution Width 18.9% (11.5-14.5) H Platelet Count 426x10^3/uL (140-400) H Neutrophils (%) (Auto) 79% (31-73) H Lymphocytes (%) (Auto) 12% (24-48) L Monocytes (%) (Auto) 7% (0-9) Eosinophils (%) (Auto) 1% (0-3) Basophils (%) (Auto) 1% (0-3) Neutrophils # (Auto) 12.3x10^3uL (1.8-7.7) H Lymphocytes # (Auto) 1.9x10^3/uL (1.0-4.8) Monocytes # (Auto) 1.0x10^3/uL (0.0-1.1) Eosinophils # (Auto) 0.2x10^3/uL (0.0-0.7) Basophils # (Auto) 0.1x10^3/uL (0.0-0.2) Sodium Level 129mmol/L (136-145) L Potassium Level 5.1mmol/L (3.5-5.1) Chloride Level 93mmol/L (98-107) L Carbon Dioxide Level 30mmol/L (21-32) Anion Gap 6 (6-14) Blood Urea Nitrogen 15mg/dL (7-20) Creatinine 1.0mg/dL (0.6-1.0) Estimated GFR (Cockcroft-Gault) 56.7 BUN/Creatinine Ratio 15 (6-20) Glucose Level 403mg/dL (70-99) H Calcium Level 9.4mg/dL (8.5-10.1) Total Bilirubin 0.8mg/dL (0.2-1.0) Aspartate Amino Transferase (AST) 33U/L (15-37) Alanine Aminotransferase (ALT) 16U/L (14-59) Alkaline Phosphatase 153U/L (46-116) H Troponin I Quantitative 0.031ng/mL (0.000-0.055) Total Protein 8.1g/dL (6.4-8.2) Albumin 2.4g/dL (3.4-5.0) L Albumin/Globulin Ratio 0.4 (1.0-1.7) L Urine Collection Type Unknown Urine Color Yellow Urine Clarity Clear Urine pH 6.0 Urine Specific Maybee 1.020 Urine Protein 30mg/dL (NEG-TRACE) Urine Glucose (UA) >=1000mg/dL (NEG) Urine Ketones (Stick) Tracemg/dL (NEG) Urine Blood Negative (NEG) Urine Nitrite Negative (NEG) Urine Bilirubin Negative (NEG) Urine Urobilinogen Dipstick 0.2mg/dL (0.2 mg/dL) Urine Leukocyte Esterase Negative (NEG) Urine RBC 0/HPF (0-2) Urine WBC 1-4/HPF (0-4) Urine Squamous Epithelial Cells Many/LPF Urine Bacteria Moderate/HPF (0-FEW) Urine Mucus Slight/LPF Urine Yeast Present/HPF Laboratory Tests 03/21/16 18:11 Laboratory Tests 03/21/16 18:11 EKG EKG EC: Sinus rhythm, heart rate 80 beats minute, upright axis, QTC of 480, GA 146, QRS of 108, left ventricle hypertrophy noted, T-wave inversions noted in the inferior septal and lateral leads, half millimeter ST elevations noted in V2, no other elevations or depressions identified. Abnormal ECG, does not meet STEMI criteria. As interpreted by me. Radiology/Procedures Radiology/Procedures Chest x-ray: One view: Normal cardiopulmonary silhouette, no traits, no effusion , no soft tissue or bony abnormalities identified. As interpreted by me. [] Course & Med Decision Making Course & Med Decision Making Pertinent Labs and Imaging studies reviewed. (See chart for details) Patient's blood glucose in the 400s in the ED, noted have trace ketones in the urine, corrected sodium is 144. Patient denies any other complaints at this time , no other concerning symptoms identified. I did contact Dr. Valdez, who was on- call for the patient's primary care provider Dr. Rodriguez. Patient did express that she would like to switch Dr. Jeffers is her primary care provider, but at this point Dr. Rodriguez is her primary, therefore she is accepted to Dr. Valdez on behalf of Dr. Rodriguez, under his service, will be admitted on insulin protocol, for stabilization of her blood glucose, and continued evaluation. Patient voiced understanding and agreement with this plan as stated, taking by mouth fluids and crackers in the ED without issue, transfer to the floor without issue. Dragon Disclaimer Dragon Disclaimer This electronic medical record was generated, in whole or in part, using a voice recognition dictation system. Departure Impression: Primary Impression: Hyperglycemia Disposition: ADMITTED INPATIENT Admitting Physician: Randee Valdez Condition: IMPROVED LESLI PEDERSON DO Mar 22, 2016 00:44
--- NOTE | 2016-03-22 01:43 | ACF ---
Admission Forms Criteria DIABETES Clinical Indications for Admission to Inpatient Care (Place 'X' for any and all applicable criteria): Admission is indicated by presence of ALL (if I & II) or ANY ONE (if III or IV) of the following (1)(2)(3)(4): [ ]I. Diabetes is uncontrolled as indicated by ANY ONE of the following: [ ]a) Diabetic ketoacidosis as indicated by ALL of the following (8): [ ]i) Hyperglycemia (eg, plasma glucose greater than 200 mg/ dL (11.1 mmol/L)) [ ]ii) Acidosis (eg, arterial pH less than 7.30, serum bicarbonate level less than 15 mEq/L (mmol/L)) [ ]iii) Moderate ketonuria or ketonemia [ ]b) Hyperglycemic hyperosmolar state as indicated by ALL of the following(9)(10): [ ]i) Neurologic dysfunction (eg, stupor, coma, hemiparesis , seizure)(13) [ ]ii) Plasma glucose greater than 600 mg/dL (33.3 mmol/L) [ ]iii) Serum osmolality greater than 320 mOsm/kg (mmol/kg) [ ]c) Severe signs or symptoms secondary to hyperglycemia indicated by ANY ONE of the following: [ ]i) Altered mental status(10) [ ]ii) Significant hypovolemia or dehydration [ ]iii) Intractable nausea or vomiting [ ]iv) Unexplained fever or severe infection [ ]v) Severe electrolyte abnormality (eg, hypokalemia, hyperkalemia, hypernatremia) [ ]II. Management at other levels of care (Also use Diabetes: Observation Care as appropriate) is not feasible because of ANY ONE of the following: [ ]a) Condition was not adequately corrected with treatment at other levels of care. [ ]b) Treatment at other levels of care is not appropriate because of condition severity (eg, hyperosmolar coma). [ X]III. Contraindications and/or Inappropriate clinical situations for Observational Care in patients with Diabetes, when ANY ONE of the following is required: [ X]a) Patient require specific diagnostic workup or therapeutic intervention 22 [X ]b) Patient with abnormal vital signs or altered mental status 23 [ ]IV. General contraindications and/or Inappropriate clinical situations for Observational Care in patients with Diabetes, when ANY ONE of the following is required: [ ]a) Prediction of prolongation of LOS based on ANY ONE of the following may be considered as a contraindication for observational care 2, 3, 4, 5, 6, 7, 8, 9, 10, 11 [ ]i) Age > 65 yrs. [ ]ii) Patient arriving by ambulance [ ]iii) Patient with high acuity [ ]iv) Patient requiring vital sign monitoring [ ]v) Patient on IV medication [ ]b) Systolic blood pressures 180mmHg 3,12 [ ]c) Patient with altered mental status including delirium and other alteration of consciousness, (3) [ ]d) Patient whose discharge disposition will be to a long term home or rehabilitation home should not be managed in Emergency Department Observation Unit. CMS rule requires 3 days hospital stay before such placement.3,13 [ ]e) Patient with failure to thrive due to broad array of etiologies 3,16,17 [ ]f) Inability to ambulate 3,14 Extended stay beyond goal length of stay may be needed for(3)(20): [ ]a) Treatment of precipitating causes [ ]b) Development of hypoglycemia [ ]c) Complications of treatment [ ]d) Complications of decompensated diabetes (eg, acute gastric dilatation, persistent metabolic or neurologic derangement) [ ]e) Active Comorbidities [ ]f) Older patients( 65 years or older) The original [employer] content created by [employer] has been revised. The portions of the content which have been revised are identified through the use of italic text or in bold,and [facility] has neither reviewed nor approved the modified material. All other unmodified content is copyright [facility] [facility]. Please see references footnoted in the original [facility] edition 2015 Admission Criteria Met?: Yes GLADYS MOREIRA Mar 22, 2016 01:43
[2016-03-22] MEDS: IV NORMAL SALINE 1000ML BAG 1,000 ML IV SCH ×2 (02:04→08:43)
[2016-03-22 03:15] VITALS: BP 136/83
--- NOTE | 2016-03-22 06:57 | EKG ---
[facility] [address] [place] [address] Test Date: 2016-03-21 Test Time: 17:54:24 Pat Name: LEIDA MANCERA Department: Room: [facility] Gender: F [employer]: : [id number] Requested By: LESLI PEDERSON Order Number: [id number] Reading MD: Roseann Urbina Measurements Intervals [place] Rate: 88 P: 54 NC: 146 QRS: 85 QRSD: 108 T: -142 QT: 394 QTc: 480 Interpretive Statements SINUS RHYTHM LEFT ATRIAL ABNORMALITY INVERTED T WAVES OVER THE INFERPLATERAL LEADS SUGGESTIVE OF MYOCARDIAL ISCHEMIA ABNORMAL ECG Electronically Signed On 03-24-2016 18:15:55 MERCHANDISE DISPLAYER by Roseann Urbina
[2016-03-22 07:00] VITALS: BP 125/80
[2016-03-22 07:28] LABS: CALCIUM 9.1 mg/dL (8.5-10.1); GFR 56.7; POTASSIUM 3.9 mmol/L (3.5-5.1)
[2016-03-22 07:38] LABS: BASO # 0.1 x10^3/uL (0.0-0.2); BASO % 0 % (0-3); EOS % 1 % (0-3); HEMATOCRIT 36.3 % (36.0-47.0); HEMOGLOBIN 11.7 g/dL (12.0-15.5); LYMPH # 1.5 x10^3/uL (1.0-4.8); LYMPH % 9 % (24-48); MEAN CORPUSCULAR HEMOGLOBIN 27 pg (25-35); MEAN CORPUSCULAR HGB CONC 32 g/dL (31-37); MEAN CORPUSCULAR VOLUME 83 fL (79-100); MONO % 8 % (0-9); NEUT % 81 % (31-73); PLATELET COUNT 425 x10^3/uL (140-400); RED BLOOD COUNT 4.38 x10^6/uL (3.50-5.40); RED CELL DISTRIBUTION WIDTH 18.5 % (11.5-14.5); WHITE BLOOD COUNT 16.6 x10^3/uL (4.0-11.0)
--- NOTE | 2016-03-22 08:20 | RAD ---
Portable AP upright view CXR: Clinical indications: Nausea. Hypertension. Diabetes. Comparison: February 29, 2016. Findings: No acute lung infiltrate or pleural effusion or pulmonary edema or lung mass or pneumothorax is seen. The heart size, pulmonary vasculature, mediastinum and both damián are stable. 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 Impression: No acute radiographic abnormality is seen.
[2016-03-22] MEDS: INSULIN ASPART 300 UNITS/3 ML INSULN.PEN SQ SCH ×3 (08:46→17:00)
[2016-03-22] MEDS ORDERED: INSULIN DETEMIR 300 UNITS/3 ML INSULN.PEN. SQ ONE (09:30)
--- NOTE | 2016-03-22 10:18 | PDOC2 ---
CONSULT Date of Consult Date of Consult DATE: 03/22/16 TIME: 10:09 Reason for Consult Reason for Consult: EKG changes Referring Physician Referring Physician: Dr. Fried Identification/Chief Complaint Chief Complaint Hyperglycemia History of Present Illness Reason for Visit: Pt admitted for glucose control. Pt's blood sugars were in the 400s. Pt was very short with her answers. Pt complained of being tired and sore. Pt denied chest pain, SOB, N/V, diaphoresis. Pt had no other complaints at this time. Past Medical History Cardiovascular: CAD, HTN, Other Pulmonary: Pulmonary embolus Musculoskeletal: Osteoarthritis Rheumatologic: Fibromyalgia, Other Endocrine: Diabetes Past Surgical History Past Surgical History: Appendectomy, Cholecystectomy, Hysterectomy, Other Family History Family History: Alcohol Abuse, Cancer, Hypertension Social History ALCOHOL: none Drugs: None Current Problem List Problem List Problems Medical Problems: (1) Hyperglycemia Status: Acute (2) Hypoglycemia Status: Acute Current Medications Current Medications Current Medications Sodium Chloride (Iv Sodium Chloride 0.9% 1000ml Bag) 1,000 ml @ 1,000 mls/hr Q1H IV Last administered on 03/21/16 19:01; Start 03/21/16 at 17:38; Stop at 18:37; Status DC Insulin Aspart (Novolog) 0-7 UNITS TIDWMEALS SQ Last administered on 03/22/16 08:46; Start 03/22/16 at 08:00 Dextrose 12.5 gm PRN Q15MIN PRN IV SEE COMMENTS; Start 03/21/16 at 21:15 Insulin Aspart (Novolog) 4 units 1X ONCE SQ Last administered on 03/21/16 23: 07; Start 03/21/16 at 23:00; Stop 03/21/16 at 23:01; Status DC Ondansetron HCl 4 mg 4 mg PRN Q8HRS PRN IV NAUSEA/VOMITING; Start 03/21/16 at 23 :15; Stop 03/22/16 at 23:14 Sodium Chloride (Iv Sodium Chloride 0.9% 1000ml Bag) 1,000 ml @ 125 mls/hr Q8H IV Last administered on 03/22/16 08:43; Start 03/21/16 at 23:15; Stop 03/22/16 at 08:59; Status DC Acetaminophen (Tylenol) 650 mg PRN Q4HRS PRN PO FEVER; Start 03/21/16 at 23:15; Stop 03/22/16 at 23:14 Fluconazole (Diflucan) 200 mg DAILY PO ; Start 03/22/16 at 09:00 Aspirin (Ecotrin) 81 mg DAILY PO ; Start 03/22/16 at 09:00 Gabapentin (Neurontin) 600 mg TID PO ; Start 03/22/16 at 09:00 Pantoprazole Sodium (Protonix) 40 mg DAILYAC PO ; Start 03/22/16 at 11:30 Duloxetine HCl (Cymbalta) 60 mg DAILY PO ; Start 03/22/16 at 09:00 Zolpidem Tartrate (Ambien) 5 mg QHS PO ; Start 03/22/16 at 21:00 Zolpidem Tartrate (Ambien) 5 mg PRN QHS PRN PO INSOMNIA; Start 03/22/16 at 09: 00 Metformin HCl (Glucophage) 1,000 mg BIDWMEALS PO ; Start 03/22/16 at 09:15 Insulin Detemir (Levemir) 20 units QHS SQ ; Start 03/22/16 at 21:00 Insulin Detemir 10 units 10 units 1X ONCE SQ ; Start 03/22/16 at 09:30; Stop at 09:31; Status DC Potassium Chloride/Sodium Chloride (Iv Sodium Chloride 0.45%) 1,015 ml @ 75 mls /hr [id number] IV ; Start 03/22/16 at 10:00 Active Scripts Active Pantoprazole Sodium 40 Mg Tablet. 40 Mg PO DAILYAC 30 Days Cymbalta (Duloxetine Hcl) 60 Mg Capsule. 60 Mg PO DAILY 30 Days Reported Ambien (Zolpidem Tartrate) 10 Mg Tablet 1 Tab PO QHS NICODERM CQ 14mg (Nicotine) 1 Each Patch.td24 1 Patch TP DAILY Meloxicam 15 Mg Tablet 1 Tab PO DAILY Novolog Flexpen (Insulin Aspart) 100 Unit/1 Ml Insuln.pen 5 Unit SQ DAILYWBKFT Pentoxifylline 400 Mg Tablet.er 400 Mg PO BIDWMEALS Oxycodone Hcl 10 Mg Tablet 15 Mg PO Q8HRS PRN Aspir-Low (Aspirin) 81 Mg Tablet. 1 Tab PO DAILY Voltaren (Diclofenac Sodium) 100 Gm Gel..gram. 1 Gm TP QID Lidoderm (Lidocaine) 700 Mg Adh..patch 1 Patch TP DAILY Neurontin (Gabapentin) 100 Mg Capsule 600 Cap PO TID Levemir (Insulin Detemir) 100 Unit/1 Ml Vial 26 Unit SQ HS Allergies Allergies: Coded Allergies: hydrocodone (Verified Adverse Reaction, Intermediate, LOOPY, 03/11/15) Physical Exam General: Alert, No acute distress HEENT: Atraumatic, EOMI Lungs: Normal air movement Heart: Regular rate, Normal S1 (systolic murmur), Normal S2 Extremities: No cyanosis Vitals VITALS Vital Signs Date Time Temp Pulse Resp B/P Pulse Ox O2 Delivery O2 Flow Rate FiO2 03/22/16 07:00 99.5 108 18 125/80 92 Room Air 99.5 Labs Labs Laboratory Tests Test 03/21/16 17:12 03/21/16 18:11 03/21/16 20:00 03/21/16 21:07 Glucose (Fingerstick) 414mg/dL (70-99) 344mg/dL (70-99) White Blood Count 15.5x10^3/uL (4.0-11.0) Red Blood Count 4.76x10^6/uL (3.50-5.40) Hemoglobin 12.6g/dL (12.0-15.5) Hematocrit 38.6% (36.0-47.0) Mean Corpuscular Volume 81fL (79-100) Mean Corpuscular Hemoglobin 27pg (25-35) Mean Corpuscular Hemoglobin Concent 33g/dL (31-37) Red Cell Distribution Width 18.9% (11.5-14.5) Platelet Count 426x10^3/uL (140-400) Neutrophils (%) (Auto) 79% (31-73) Lymphocytes (%) (Auto) 12% (24-48) Monocytes (%) (Auto) 7% (0-9) Eosinophils (%) (Auto) 1% (0-3) Basophils (%) (Auto) 1% (0-3) Neutrophils # (Auto) 12.3x10^3uL (1.8-7.7) Lymphocytes # (Auto) 1.9x10^3/uL (1.0-4.8) Monocytes # (Auto) 1.0x10^3/uL (0.0-1.1) Eosinophils # (Auto) 0.2x10^3/uL (0.0-0.7) Basophils # (Auto) 0.1x10^3/uL (0.0-0.2) Sodium Level 129mmol/L (136-145) Potassium Level 5.1mmol/L (3.5-5.1) Chloride Level 93mmol/L (98-107) Carbon Dioxide Level 30mmol/L (21-32) Anion Gap 6 (6-14) Blood Urea Nitrogen 15mg/dL (7-20) Creatinine 1.0mg/dL (0.6-1.0) Estimated GFR (Cockcroft-Gault) 56.7 BUN/Creatinine Ratio 15 (6-20) Glucose Level 403mg/dL (70-99) Calcium Level 9.4mg/dL (8.5-10.1) Total Bilirubin 0.8mg/dL (0.2-1.0) Aspartate Amino Transf (AST/SGOT) 33U/L (15-37) Alanine Aminotransferase (ALT/SGPT) 16U/L (14-59) Alkaline Phosphatase 153U/L (46-116) Troponin I Quantitative 0.031ng/mL (0.000-0.055) Total Protein 8.1g/dL (6.4-8.2) Albumin 2.4g/dL (3.4-5.0) Albumin/Globulin Ratio 0.4 (1.0-1.7) Urine Collection Type Unknown Urine Color Yellow Urine Clarity Clear Urine pH 6.0 Urine Specific [place] 1.020 Urine Protein 30mg/dL (NEG-TRACE) Urine Glucose (UA) >=1000mg/dL (NEG) Urine Ketones (Stick) Tracemg/dL (NEG) Urine Blood Negative (NEG) Urine Nitrite Negative (NEG) Urine Bilirubin Negative (NEG) Urine Urobilinogen Dipstick 0.2mg/dL (0.2 mg/dL) Urine Leukocyte Esterase Negative (NEG) Urine RBC 0/HPF (0-2) Urine WBC 1-4/HPF (0-4) Urine Squamous Epithelial Cells Many/LPF Urine Bacteria Moderate/HPF (0-FEW) Urine Mucus Slight/LPF Urine Yeast Present/HPF Test 03/21/16 22:44 03/22/16 03:06 03/22/16 06:10 03/22/16 07:53 Glucose (Fingerstick) 362mg/dL (70-99) 291mg/dL (70-99) 293mg/dL (70-99) White Blood Count 16.6x10^3/uL (4.0-11.0) Red Blood Count 4.38x10^6/uL (3.50-5.40) Hemoglobin 11.7g/dL (12.0-15.5) Hematocrit 36.3% (36.0-47.0) Mean Corpuscular Volume 83fL (79-100) Mean Corpuscular Hemoglobin 27pg (25-35) Mean Corpuscular Hemoglobin Concent 32g/dL (31-37) Red Cell Distribution Width 18.5% (11.5-14.5) Platelet Count 425x10^3/uL (140-400) Neutrophils (%) (Auto) 81% (31-73) Lymphocytes (%) (Auto) 9% (24-48) Monocytes (%) (Auto) 8% (0-9) Eosinophils (%) (Auto) 1% (0-3) Basophils (%) (Auto) 0% (0-3) Neutrophils # (Auto) 13.5x10^3uL (1.8-7.7) Lymphocytes # (Auto) 1.5x10^3/uL (1.0-4.8) Monocytes # (Auto) 1.3x10^3/uL (0.0-1.1) Eosinophils # (Auto) 0.2x10^3/uL (0.0-0.7) Basophils # (Auto) 0.1x10^3/uL (0.0-0.2) Sodium Level 134mmol/L (136-145) Potassium Level 3.9mmol/L (3.5-5.1) Chloride Level 97mmol/L (98-107) Carbon Dioxide Level 26mmol/L (21-32) Anion Gap 11 (6-14) Blood Urea Nitrogen 10mg/dL (7-20) Creatinine 1.0mg/dL (0.6-1.0) Estimated GFR (Cockcroft-Gault) 56.7 Glucose Level 305mg/dL (70-99) Calcium Level 9.1mg/dL (8.5-10.1) Laboratory Tests Test 03/21/16 17:12 03/21/16 18:11 03/21/16 20:00 03/21/16 21:07 Glucose (Fingerstick) 414mg/dL (70-99) 344mg/dL (70-99) White Blood Count 15.5x10^3/uL (4.0-11.0) Red Blood Count 4.76x10^6/uL (3.50-5.40) Hemoglobin 12.6g/dL (12.0-15.5) Hematocrit 38.6% (36.0-47.0) Mean Corpuscular Volume 81fL (79-100) Mean Corpuscular Hemoglobin 27pg (25-35) Mean Corpuscular Hemoglobin Concent 33g/dL (31-37) Red Cell Distribution Width 18.9% (11.5-14.5) Platelet Count 426x10^3/uL (140-400) Neutrophils (%) (Auto) 79% (31-73) Lymphocytes (%) (Auto) 12% (24-48) Monocytes (%) (Auto) 7% (0-9) Eosinophils (%) (Auto) 1% (0-3) Basophils (%) (Auto) 1% (0-3) Neutrophils # (Auto) 12.3x10^3uL (1.8-7.7) Lymphocytes # (Auto) 1.9x10^3/uL (1.0-4.8) Monocytes # (Auto) 1.0x10^3/uL (0.0-1.1) Eosinophils # (Auto) 0.2x10^3/uL (0.0-0.7) Basophils # (Auto) 0.1x10^3/uL (0.0-0.2) Sodium Level 129mmol/L (136-145) Potassium Level 5.1mmol/L (3.5-5.1) Chloride Level 93mmol/L (98-107) Carbon Dioxide Level 30mmol/L (21-32) Anion Gap 6 (6-14) Blood Urea Nitrogen 15mg/dL (7-20) Creatinine 1.0mg/dL (0.6-1.0) Estimated GFR (Cockcroft-Gault) 56.7 BUN/Creatinine Ratio 15 (6-20) Glucose Level 403mg/dL (70-99) Calcium Level 9.4mg/dL (8.5-10.1) Total Bilirubin 0.8mg/dL (0.2-1.0) Aspartate Amino Transf (AST/SGOT) 33U/L (15-37) Alanine Aminotransferase (ALT/SGPT) 16U/L (14-59) Alkaline Phosphatase 153U/L (46-116) Troponin I Quantitative 0.031ng/mL (0.000-0.055) Total Protein 8.1g/dL (6.4-8.2) Albumin 2.4g/dL (3.4-5.0) Albumin/Globulin Ratio 0.4 (1.0-1.7) Urine Collection Type Unknown Urine Color Yellow Urine Clarity Clear Urine pH 6.0 Urine Specific [place] 1.020 Urine Protein 30mg/dL (NEG-TRACE) Urine Glucose (UA) >=1000mg/dL (NEG) Urine Ketones (Stick) Tracemg/dL (NEG) Urine Blood Negative (NEG) Urine Nitrite Negative (NEG) Urine Bilirubin Negative (NEG) Urine Urobilinogen Dipstick 0.2mg/dL (0.2 mg/dL) Urine Leukocyte Esterase Negative (NEG) Urine RBC 0/HPF (0-2) Urine WBC 1-4/HPF (0-4) Urine Squamous Epithelial Cells Many/LPF Urine Bacteria Moderate/HPF (0-FEW) Urine Mucus Slight/LPF Urine Yeast Present/HPF Test 03/21/16 22:44 03/22/16 03:06 03/22/16 06:10 03/22/16 07:53 Glucose (Fingerstick) 362mg/dL (70-99) 291mg/dL (70-99) 293mg/dL (70-99) White Blood Count 16.6x10^3/uL (4.0-11.0) Red Blood Count 4.38x10^6/uL (3.50-5.40) Hemoglobin 11.7g/dL (12.0-15.5) Hematocrit 36.3% (36.0-47.0) Mean Corpuscular Volume 83fL (79-100) Mean Corpuscular Hemoglobin 27pg (25-35) Mean Corpuscular Hemoglobin Concent 32g/dL (31-37) Red Cell Distribution Width 18.5% (11.5-14.5) Platelet Count 425x10^3/uL (140-400) Neutrophils (%) (Auto) 81% (31-73) Lymphocytes (%) (Auto) 9% (24-48) Monocytes (%) (Auto) 8% (0-9) Eosinophils (%) (Auto) 1% (0-3) Basophils (%) (Auto) 0% (0-3) Neutrophils # (Auto) 13.5x10^3uL (1.8-7.7) Lymphocytes # (Auto) 1.5x10^3/uL (1.0-4.8) Monocytes # (Auto) 1.3x10^3/uL (0.0-1.1) Eosinophils # (Auto) 0.2x10^3/uL (0.0-0.7) Basophils # (Auto) 0.1x10^3/uL (0.0-0.2) Sodium Level 134mmol/L (136-145) Potassium Level 3.9mmol/L (3.5-5.1) Chloride Level 97mmol/L (98-107) Carbon Dioxide Level 26mmol/L (21-32) Anion Gap 11 (6-14) Blood Urea Nitrogen 10mg/dL (7-20) Creatinine 1.0mg/dL (0.6-1.0) Estimated GFR (Cockcroft-Gault) 56.7 Glucose Level 305mg/dL (70-99) Calcium Level 9.1mg/dL (8.5-10.1) Assessment/Plan Assessment/Plan Hyperglycemia Continue current treatment Follow troponins No other current cardiac recommendation Thank you very much for letting me participate in the care of this patient. SAUNDRA FORTUNE MD Mar 22, 2016 10:18
--- NOTE | 2016-03-22 10:57 | PDOC ---
OBJECTIVE Vital Signs Vital Signs Date Time Temp Pulse Resp B/P Pulse Ox O2 Delivery O2 Flow Rate FiO2 03/22/16 08:00 Room Air 03/22/16 07:00 99.5 108 18 125/80 92 Room Air 99.5 03/22/16 03:15 98.4 95 18 136/83 92 Room Air 98.4 03/21/16 23:22 98.2 99 18 111/74 95 Room Air 98.2 03/21/16 22:30 98.6 90 118/62 95 98.6 03/21/16 22:30 Room Air 03/21/16 21:30 90 20 118/62 95 Room Air 03/21/16 20:10 90 20 95/64 95 Room Air 03/21/16 19:00 86 20 92/61 95 Room Air 03/21/16 17:19 98.6 87 21 163/75 96 Room Air 98.6 I & O Intake and Output 03/22/16 07:00 Intake Total 1601 ml Balance 1601 ml Intake Oral 100 ml IV Total 1501 ml # Voids 1 ASSESSMENT/PLAN Assessment/Plan [id number] H&P dictated Problems: COMMENT Lab Laboratory Tests Test 03/21/16 17:12 03/21/16 18:11 03/21/16 20:00 03/21/16 21:07 Glucose (Fingerstick) 414mg/dL (70-99) 344mg/dL (70-99) White Blood Count 15.5x10^3/uL (4.0-11.0) Red Blood Count 4.76x10^6/uL (3.50-5.40) Hemoglobin 12.6g/dL (12.0-15.5) Hematocrit 38.6% (36.0-47.0) Mean Corpuscular Volume 81fL (79-100) Mean Corpuscular Hemoglobin 27pg (25-35) Mean Corpuscular Hemoglobin Concent 33g/dL (31-37) Red Cell Distribution Width 18.9% (11.5-14.5) Platelet Count 426x10^3/uL (140-400) Neutrophils (%) (Auto) 79% (31-73) Lymphocytes (%) (Auto) 12% (24-48) Monocytes (%) (Auto) 7% (0-9) Eosinophils (%) (Auto) 1% (0-3) Basophils (%) (Auto) 1% (0-3) Neutrophils # (Auto) 12.3x10^3uL (1.8-7.7) Lymphocytes # (Auto) 1.9x10^3/uL (1.0-4.8) Monocytes # (Auto) 1.0x10^3/uL (0.0-1.1) Eosinophils # (Auto) 0.2x10^3/uL (0.0-0.7) Basophils # (Auto) 0.1x10^3/uL (0.0-0.2) Sodium Level 129mmol/L (136-145) Potassium Level 5.1mmol/L (3.5-5.1) Chloride Level 93mmol/L (98-107) Carbon Dioxide Level 30mmol/L (21-32) Anion Gap 6 (6-14) Blood Urea Nitrogen 15mg/dL (7-20) Creatinine 1.0mg/dL (0.6-1.0) Estimated GFR (Cockcroft-Gault) 56.7 BUN/Creatinine Ratio 15 (6-20) Glucose Level 403mg/dL (70-99) Calcium Level 9.4mg/dL (8.5-10.1) Total Bilirubin 0.8mg/dL (0.2-1.0) Aspartate Amino Transf (AST/SGOT) 33U/L (15-37) Alanine Aminotransferase (ALT/SGPT) 16U/L (14-59) Alkaline Phosphatase 153U/L (46-116) Troponin I Quantitative 0.031ng/mL (0.000-0.055) Total Protein 8.1g/dL (6.4-8.2) Albumin 2.4g/dL (3.4-5.0) Albumin/Globulin Ratio 0.4 (1.0-1.7) Urine Collection Type Unknown Urine Color Yellow Urine Clarity Clear Urine pH 6.0 Urine Specific [place] 1.020 Urine Protein 30mg/dL (NEG-TRACE) Urine Glucose (UA) >=1000mg/dL (NEG) Urine Ketones (Stick) Tracemg/dL (NEG) Urine Blood Negative (NEG) Urine Nitrite Negative (NEG) Urine Bilirubin Negative (NEG) Urine Urobilinogen Dipstick 0.2mg/dL (0.2 mg/dL) Urine Leukocyte Esterase Negative (NEG) Urine RBC 0/HPF (0-2) Urine WBC 1-4/HPF (0-4) Urine Squamous Epithelial Cells Many/LPF Urine Bacteria Moderate/HPF (0-FEW) Urine Mucus Slight/LPF Urine Yeast Present/HPF Test 03/21/16 22:44 03/22/16 03:06 03/22/16 06:10 03/22/16 07:53 Glucose (Fingerstick) 362mg/dL (70-99) 291mg/dL (70-99) 293mg/dL (70-99) White Blood Count 16.6x10^3/uL (4.0-11.0) Red Blood Count 4.38x10^6/uL (3.50-5.40) Hemoglobin 11.7g/dL (12.0-15.5) Hematocrit 36.3% (36.0-47.0) Mean Corpuscular Volume 83fL (79-100) Mean Corpuscular Hemoglobin 27pg (25-35) Mean Corpuscular Hemoglobin Concent 32g/dL (31-37) Red Cell Distribution Width 18.5% (11.5-14.5) Platelet Count 425x10^3/uL (140-400) Neutrophils (%) (Auto) 81% (31-73) Lymphocytes (%) (Auto) 9% (24-48) Monocytes (%) (Auto) 8% (0-9) Eosinophils (%) (Auto) 1% (0-3) Basophils (%) (Auto) 0% (0-3) Neutrophils # (Auto) 13.5x10^3uL (1.8-7.7) Lymphocytes # (Auto) 1.5x10^3/uL (1.0-4.8) Monocytes # (Auto) 1.3x10^3/uL (0.0-1.1) Eosinophils # (Auto) 0.2x10^3/uL (0.0-0.7) Basophils # (Auto) 0.1x10^3/uL (0.0-0.2) Sodium Level 134mmol/L (136-145) Potassium Level 3.9mmol/L (3.5-5.1) Chloride Level 97mmol/L (98-107) Carbon Dioxide Level 26mmol/L (21-32) Anion Gap 11 (6-14) Blood Urea Nitrogen 10mg/dL (7-20) Creatinine 1.0mg/dL (0.6-1.0) Estimated GFR (Cockcroft-Gault) 56.7 Glucose Level 305mg/dL (70-99) Calcium Level 9.1mg/dL (8.5-10.1) JOSH GANT MD Mar 22, 2016 10:57
[2016-03-22 11:00] VITALS: BP 100/69
[2016-03-22] MEDS: GABAPENTIN 100 MG CAPSULE. PO SCH ×2 (11:03→15:37)
[2016-03-22] MEDS: DULOXETINE HCL 30 MG CAPSULE.DR. PO SCH (11:03)
[2016-03-22] MEDS: PANTOPRAZOLE 40 MG TABLET. PO SCH (11:03)
[2016-03-22] MEDS: ASPIRIN ENTERIC COATED 81 MG TABLET.DR. PO SCH (11:03)
[2016-03-22] MEDS: FLUCONAZOLE 100 MG TABLET. PO SCH (11:03)
[2016-03-22] MEDS: METFORMIN 1,000 MG TABLET PO SCH ×2 (11:03→18:34)
[2016-03-22] MEDS: POTASSIUM CHLORIDE 30 MEQ in IV 1/2 NORMAL SALINE 1,000 ML IV SCH ×2 (11:04→23:51)
[2016-03-22 15:00] VITALS: BP 96/64
[2016-03-22 19:59] VITALS: BP 100/72
[2016-03-22] MEDS ORDERED: INSULIN DETEMIR 300 UNITS/3 ML INSULN.PEN. SQ SCH (21:00)
[2016-03-22] MEDS: GABAPENTIN 300 MG CAPSULE. PO SCH (21:19)
[2016-03-22] MEDS: ZOLPIDEM 5 MG TABLET. PO SCH (21:19)
[2016-03-22] MEDS: DOXYCYCLINE HYCLATE 100 MG TABLET PO SCH (21:19)
[2016-03-22 23:01] VITALS: BP 111/75
[2016-03-23 03:59] VITALS: BP 137/92
[2016-03-23 07:00] VITALS: BP 104/70
[2016-03-23 07:25] LABS: HEMATOCRIT 37.5 % (36.0-47.0); RED BLOOD COUNT 4.51 x10^6/uL (3.50-5.40); RED CELL DISTRIBUTION WIDTH 19.6 % (11.5-14.5); WHITE BLOOD COUNT 17.4 x10^3/uL (4.0-11.0)
[2016-03-23 07:31] LABS: ALBUMIN 2.1 g/dL (3.4-5.0); ALBUMIN/GLOBULIN RATIO 0.4 (1.0-1.7); CALCIUM 9.1 mg/dL (8.5-10.1); CREATININE 0.8 mg/dL (0.6-1.0); GFR 73.4; POTASSIUM 3.4 mmol/L (3.5-5.1); TOTAL BILIRUBIN 0.5 mg/dL (0.2-1.0); TOTAL PROTEIN 7.7 g/dL (6.4-8.2)
[2016-03-23] MEDS: INSULIN ASPART 300 UNITS/3 ML INSULN.PEN SQ SCH (08:00)
[2016-03-23] MEDS ORDERED: POTASSIUM CHLORIDE 20 MEQ TABLET.ER. PO ONE (09:30)
[2016-03-23] MEDS: FLUCONAZOLE 100 MG TABLET. PO SCH (10:15)
[2016-03-23] MEDS: ASPIRIN ENTERIC COATED 81 MG TABLET.DR. PO SCH (10:15)
[2016-03-23] MEDS: PANTOPRAZOLE 40 MG TABLET. PO SCH (10:16)
[2016-03-23] MEDS: DULOXETINE HCL 30 MG CAPSULE.DR. PO SCH (10:16)
[2016-03-23] MEDS: DOXYCYCLINE HYCLATE 100 MG TABLET PO SCH (10:17)
[2016-03-23] MEDS: GABAPENTIN 300 MG CAPSULE. PO SCH ×3 (10:17→22:16)
[2016-03-23] MEDS: METFORMIN 1,000 MG TABLET PO SCH (10:22)
[2016-03-23 11:00] VITALS: BP 114/67
[2016-03-23] MEDS: IPRATRPIUM/ALBUTEROL 0.5/2.5MG 3 ML NEBU. NEB SCH ×3 (12:00→20:00)
[2016-03-23] MEDS: POTASSIUM CHLORIDE 30 MEQ in IV 1/2 NORMAL SALINE 1,000 ML IV SCH (13:04)
--- NOTE | 2016-03-23 13:20 | PDOC ---
SUBJECTIVE Subjective c/o back pain, BS some better OBJECTIVE Objective does have low grade temp Vital Signs Vital Signs Date Time Temp Pulse Resp B/P Pulse Ox O2 Delivery O2 Flow Rate FiO2 03/23/16 11:00 100.3 97 20 114/67 95 Room Air 100.3 03/23/16 07:00 98.1 102 20 104/70 94 Room Air 98.1 03/23/16 03:59 97.9 100 18 137/92 94 Room Air 97.9 03/22/16 23:01 98.2 87 18 111/75 96 Room Air 98.2 03/22/16 20:10 Room Air 03/22/16 19:59 98.1 82 18 100/72 94 Room Air 98.1 03/22/16 15:00 99.0 92 18 96/64 95 Room Air 99.0 I & O Intake and Output 03/23/16 07:00 Intake Total 2325 ml Output Total 1000 ml Balance 1325 ml Intake Oral 360 ml IV Total 1965 ml Output Urine Total 1000 ml # Voids 3 # Bowel Movements 2 PHYSICAL EXAM Physical Exam scatered wheezes heart RRR abd soft ext no edema ASSESSMENT/PLAN Assessment/Plan 1- low grade fever with leukocytosis ? etiology ( empiric doxycycline for possible bronchitis) 2- chronic back pain worse lately last epidural 6 month ago no recent steroid use according to pt, ? ( MRI L spine if source of fever not determined) will ask ID opinion 3-hyperglycemia and uncontrolled DM 4-COPD 5-Diarrhea after admission likely due to metformin was started inhouse ( had in past ) also check C. Diff, will D/C metformin 6- other problems as per H&P Problems: COMMENT Lab Laboratory Tests Test 03/22/16 16:17 03/22/16 20:29 03/23/16 05:50 03/23/16 08:03 Glucose (Fingerstick) 146mg/dL (70-99) 141mg/dL (70-99) 172mg/dL (70-99) White Blood Count 17.4x10^3/uL (4.0-11.0) Red Blood Count 4.51x10^6/uL (3.50-5.40) Hemoglobin 12.0g/dL (12.0-15.5) Hematocrit 37.5% (36.0-47.0) Mean Corpuscular Volume 83fL (79-100) Mean Corpuscular Hemoglobin 27pg (25-35) Mean Corpuscular Hemoglobin Concent 32g/dL (31-37) Red Cell Distribution Width 19.6% (11.5-14.5) Platelet Count 465x10^3/uL (140-400) Erythrocyte Sedimentation Rate 117 (0-25) Sodium Level 136mmol/L (136-145) Potassium Level 3.4mmol/L (3.5-5.1) Chloride Level 100mmol/L (98-107) Carbon Dioxide Level 27mmol/L (21-32) Anion Gap 9 (6-14) Blood Urea Nitrogen 10mg/dL (7-20) Creatinine 0.8mg/dL (0.6-1.0) Estimated GFR (Cockcroft-Gault) 73.4 BUN/Creatinine Ratio 13 (6-20) Glucose Level 48mg/dL (70-99) Calcium Level 9.1mg/dL (8.5-10.1) Total Bilirubin 0.5mg/dL (0.2-1.0) Aspartate Amino Transf (AST/SGOT) 18U/L (15-37) Alanine Aminotransferase (ALT/SGPT) 11U/L (14-59) Alkaline Phosphatase 124U/L (46-116) Total Protein 7.7g/dL (6.4-8.2) Albumin 2.1g/dL (3.4-5.0) Albumin/Globulin Ratio 0.4 (1.0-1.7) Test 03/23/16 11:45 Glucose (Fingerstick) 221mg/dL (70-99) JSOH GANT MD Mar 23, 2016 13:20
[2016-03-23] MEDS: OXYCODONE/APAP 5/325 TABLET. PO PRN (13:22)
--- NOTE | 2016-03-23 14:08 | PDOC ---
PROGRESS NOTES Subjective Subjective Patient feels a little better today but seems to be quite depressed. She is running a low-grade temperature and her white count is high as well as the set rate. Objective Objective Vital Signs Date Time Temp Pulse Resp B/P Pulse Ox O2 Delivery O2 Flow Rate FiO2 03/23/16 13:22 16 Room Air 03/23/16 11:00 100.3 97 114/67 95 100.3 Intake and Output 03/23/16 07:00 Intake Total 2325 ml Output Total 1000 ml Balance 1325 ml Intake Oral 360 ml IV Total 1965 ml Output Urine Total 1000 ml # Voids 3 # Bowel Movements 2 Physical Exam Physical Exam No significant changes in cardiac exam Assessment Assessment Patient appears to be stable cardiac alonso. I agree with the present plan and with consulting with infectious disease. She may need treatment with an antidepressant as well. Problems Medical Problems: (1) Hyperglycemia Status: Acute (2) Hypoglycemia Status: Acute Comment Review of Relevant I have reviewed the following items sarahy (where applicable) has been applied. Labs Laboratory Tests Test 03/21/16 17:12 03/21/16 18:11 03/21/16 20:00 03/21/16 21:07 Glucose (Fingerstick) 414mg/dL (70-99) 344mg/dL (70-99) White Blood Count 15.5x10^3/uL (4.0-11.0) Red Blood Count 4.76x10^6/uL (3.50-5.40) Hemoglobin 12.6g/dL (12.0-15.5) Hematocrit 38.6% (36.0-47.0) Mean Corpuscular Volume 81fL (79-100) Mean Corpuscular Hemoglobin 27pg (25-35) Mean Corpuscular Hemoglobin Concent 33g/dL (31-37) Red Cell Distribution Width 18.9% (11.5-14.5) Platelet Count 426x10^3/uL (140-400) Neutrophils (%) (Auto) 79% (31-73) Lymphocytes (%) (Auto) 12% (24-48) Monocytes (%) (Auto) 7% (0-9) Eosinophils (%) (Auto) 1% (0-3) Basophils (%) (Auto) 1% (0-3) Neutrophils # (Auto) 12.3x10^3uL (1.8-7.7) Lymphocytes # (Auto) 1.9x10^3/uL (1.0-4.8) Monocytes # (Auto) 1.0x10^3/uL (0.0-1.1) Eosinophils # (Auto) 0.2x10^3/uL (0.0-0.7) Basophils # (Auto) 0.1x10^3/uL (0.0-0.2) Sodium Level 129mmol/L (136-145) Potassium Level 5.1mmol/L (3.5-5.1) Chloride Level 93mmol/L (98-107) Carbon Dioxide Level 30mmol/L (21-32) Anion Gap 6 (6-14) Blood Urea Nitrogen 15mg/dL (7-20) Creatinine 1.0mg/dL (0.6-1.0) Estimated GFR (Cockcroft-Gault) 56.7 BUN/Creatinine Ratio 15 (6-20) Glucose Level 403mg/dL (70-99) Calcium Level 9.4mg/dL (8.5-10.1) Total Bilirubin 0.8mg/dL (0.2-1.0) Aspartate Amino Transf (AST/SGOT) 33U/L (15-37) Alanine Aminotransferase (ALT/SGPT) 16U/L (14-59) Alkaline Phosphatase 153U/L (46-116) Troponin I Quantitative 0.031ng/mL (0.000-0.055) Total Protein 8.1g/dL (6.4-8.2) Albumin 2.4g/dL (3.4-5.0) Albumin/Globulin Ratio 0.4 (1.0-1.7) Urine Collection Type Unknown Urine Color Yellow Urine Clarity Clear Urine pH 6.0 Urine Specific [place] 1.020 Urine Protein 30mg/dL (NEG-TRACE) Urine Glucose (UA) >=1000mg/dL (NEG) Urine Ketones (Stick) Tracemg/dL (NEG) Urine Blood Negative (NEG) Urine Nitrite Negative (NEG) Urine Bilirubin Negative (NEG) Urine Urobilinogen Dipstick 0.2mg/dL (0.2 mg/dL) Urine Leukocyte Esterase Negative (NEG) Urine RBC 0/HPF (0-2) Urine WBC 1-4/HPF (0-4) Urine Squamous Epithelial Cells Many/LPF Urine Bacteria Moderate/HPF (0-FEW) Urine Mucus Slight/LPF Urine Yeast Present/HPF Test 03/21/16 22:44 03/22/16 03:06 03/22/16 06:10 03/22/16 07:53 Glucose (Fingerstick) 362mg/dL (70-99) 291mg/dL (70-99) 293mg/dL (70-99) White Blood Count 16.6x10^3/uL (4.0-11.0) Red Blood Count 4.38x10^6/uL (3.50-5.40) Hemoglobin 11.7g/dL (12.0-15.5) Hematocrit 36.3% (36.0-47.0) Mean Corpuscular Volume 83fL (79-100) Mean Corpuscular Hemoglobin 27pg (25-35) Mean Corpuscular Hemoglobin Concent 32g/dL (31-37) Red Cell Distribution Width 18.5% (11.5-14.5) Platelet Count 425x10^3/uL (140-400) Neutrophils (%) (Auto) 81% (31-73) Lymphocytes (%) (Auto) 9% (24-48) Monocytes (%) (Auto) 8% (0-9) Eosinophils (%) (Auto) 1% (0-3) Basophils (%) (Auto) 0% (0-3) Neutrophils # (Auto) 13.5x10^3uL (1.8-7.7) Lymphocytes # (Auto) 1.5x10^3/uL (1.0-4.8) Monocytes # (Auto) 1.3x10^3/uL (0.0-1.1) Eosinophils # (Auto) 0.2x10^3/uL (0.0-0.7) Basophils # (Auto) 0.1x10^3/uL (0.0-0.2) Sodium Level 134mmol/L (136-145) Potassium Level 3.9mmol/L (3.5-5.1) Chloride Level 97mmol/L (98-107) Carbon Dioxide Level 26mmol/L (21-32) Anion Gap 11 (6-14) Blood Urea Nitrogen 10mg/dL (7-20) Creatinine 1.0mg/dL (0.6-1.0) Estimated GFR (Cockcroft-Gault) 56.7 Glucose Level 305mg/dL (70-99) Calcium Level 9.1mg/dL (8.5-10.1) Test 03/22/16 08:10 03/22/16 11:01 03/22/16 16:17 03/22/16 20:29 Hemoglobin A1c 9.0% (4.8-5.6) Glucose (Fingerstick) 270mg/dL (70-99) 146mg/dL (70-99) 141mg/dL (70-99) Test 03/23/16 05:50 03/23/16 08:03 03/23/16 11:45 White Blood Count 17.4x10^3/uL (4.0-11.0) Red Blood Count 4.51x10^6/uL (3.50-5.40) Hemoglobin 12.0g/dL (12.0-15.5) Hematocrit 37.5% (36.0-47.0) Mean Corpuscular Volume 83fL (79-100) Mean Corpuscular Hemoglobin 27pg (25-35) Mean Corpuscular Hemoglobin Concent 32g/dL (31-37) Red Cell Distribution Width 19.6% (11.5-14.5) Platelet Count 465x10^3/uL (140-400) Erythrocyte Sedimentation Rate 117 (0-25) Sodium Level 136mmol/L (136-145) Potassium Level 3.4mmol/L (3.5-5.1) Chloride Level 100mmol/L (98-107) Carbon Dioxide Level 27mmol/L (21-32) Anion Gap 9 (6-14) Blood Urea Nitrogen 10mg/dL (7-20) Creatinine 0.8mg/dL (0.6-1.0) Estimated GFR (Cockcroft-Gault) 73.4 BUN/Creatinine Ratio 13 (6-20) Glucose Level 48mg/dL (70-99) Calcium Level 9.1mg/dL (8.5-10.1) Total Bilirubin 0.5mg/dL (0.2-1.0) Aspartate Amino Transf (AST/SGOT) 18U/L (15-37) Alanine Aminotransferase (ALT/SGPT) 11U/L (14-59) Alkaline Phosphatase 124U/L (46-116) Total Protein 7.7g/dL (6.4-8.2) Albumin 2.1g/dL (3.4-5.0) Albumin/Globulin Ratio 0.4 (1.0-1.7) Glucose (Fingerstick) 172mg/dL (70-99) 221mg/dL (70-99) Laboratory Tests Test 03/22/16 16:17 03/22/16 20:29 03/23/16 05:50 03/23/16 08:03 Glucose (Fingerstick) 146mg/dL (70-99) 141mg/dL (70-99) 172mg/dL (70-99) White Blood Count 17.4x10^3/uL (4.0-11.0) Red Blood Count 4.51x10^6/uL (3.50-5.40) Hemoglobin 12.0g/dL (12.0-15.5) Hematocrit 37.5% (36.0-47.0) Mean Corpuscular Volume 83fL (79-100) Mean Corpuscular Hemoglobin 27pg (25-35) Mean Corpuscular Hemoglobin Concent 32g/dL (31-37) Red Cell Distribution Width 19.6% (11.5-14.5) Platelet Count 465x10^3/uL (140-400) Erythrocyte Sedimentation Rate 117 (0-25) Sodium Level 136mmol/L (136-145) Potassium Level 3.4mmol/L (3.5-5.1) Chloride Level 100mmol/L (98-107) Carbon Dioxide Level 27mmol/L (21-32) Anion Gap 9 (6-14) Blood Urea Nitrogen 10mg/dL (7-20) Creatinine 0.8mg/dL (0.6-1.0) Estimated GFR (Cockcroft-Gault) 73.4 BUN/Creatinine Ratio 13 (6-20) Glucose Level 48mg/dL (70-99) Calcium Level 9.1mg/dL (8.5-10.1) Total Bilirubin 0.5mg/dL (0.2-1.0) Aspartate Amino Transf (AST/SGOT) 18U/L (15-37) Alanine Aminotransferase (ALT/SGPT) 11U/L (14-59) Alkaline Phosphatase 124U/L (46-116) Total Protein 7.7g/dL (6.4-8.2) Albumin 2.1g/dL (3.4-5.0) Albumin/Globulin Ratio 0.4 (1.0-1.7) Test 03/23/16 11:45 Glucose (Fingerstick) 221mg/dL (70-99) Microbiology 03/21/16 Urine Culture - Preliminary, Resulted 03/21/16 Urine Culture Result 1 (BUSTER) - Preliminary, Resulted Medications Current Medications Sodium Chloride (Iv Sodium Chloride 0.9% 1000ml Bag) 1,000 ml @ 1,000 mls/hr Q1H IV Last administered on 03/21/16 19:01; Start 03/21/16 at 17:38; Stop at 18:37; Status DC Insulin Aspart (Novolog) 0-7 UNITS TIDWMEALS SQ Last administered on 03/22/16 12:26; Start 03/22/16 at 08:00; Stop 03/23/16 at 09:32; Status DC Dextrose 12.5 gm PRN Q15MIN PRN IV SEE COMMENTS; Start 03/21/16 at 21:15 Insulin Aspart (Novolog) 4 units 1X ONCE SQ Last administered on 03/21/16 23: 07; Start 03/21/16 at 23:00; Stop 03/21/16 at 23:01; Status DC Ondansetron HCl 4 mg 4 mg PRN Q8HRS PRN IV NAUSEA/VOMITING; Start 03/21/16 at 23 :15; Stop 03/22/16 at 23:14; Status DC Sodium Chloride (Iv Sodium Chloride 0.9% 1000ml Bag) 1,000 ml @ 125 mls/hr Q8H IV Last administered on 03/22/16 08:43; Start 03/21/16 at 23:15; Stop 03/22/16 at 08:59; Status DC Acetaminophen (Tylenol) 650 mg PRN Q4HRS PRN PO FEVER Last administered on 03/22 15:38; Start 03/21/16 at 23:15; Stop 03/22/16 at 23:14; Status DC Fluconazole (Diflucan) 200 mg DAILY PO Last administered on 03/23/16 10:15; Start 03/22/16 at 09:00 Aspirin (Ecotrin) 81 mg DAILY PO Last administered on 03/23/16 10:15; Start at 09:00 Gabapentin (Neurontin) 600 mg TID PO Last administered on 03/22/16 15:37; Start 03/22/16 at 09:00; Stop 03/22/16 at 20:46; Status DC Pantoprazole Sodium (Protonix) 40 mg DAILYAC PO Last administered on 03/23/16 10:16; Start 03/22/16 at 11:30 Duloxetine HCl (Cymbalta) 60 mg DAILY PO Last administered on 03/23/16 10:16; Start 03/22/16 at 09:00 Zolpidem Tartrate (Ambien) 5 mg QHS PO Last administered on 03/22/16 21:19; Start 03/22/16 at 21:00 Zolpidem Tartrate (Ambien) 5 mg PRN QHS PRN PO INSOMNIA; Start 03/22/16 at 09: 00 Metformin HCl (Glucophage) 1,000 mg BIDWMEALS PO Last administered on 10:22; Start 03/22/16 at 09:15; Stop 03/23/16 at 13:23; Status DC Insulin Detemir (Levemir) 20 units QHS SQ Last administered on 03/22/16 21:24 ; Start 03/22/16 at 21:00; Stop 03/23/16 at 09:32; Status DC Insulin Detemir 10 units 10 units 1X ONCE SQ Last administered on 03/22/16 12 :27; Start 03/22/16 at 09:30; Stop 03/22/16 at 09:31; Status DC Potassium Chloride/Sodium Chloride (Iv Sodium Chloride 0.45%) 1,015 ml @ 75 mls /hr [id number] IV Last administered on 03/22/16 23:51; Start 03/22/16 at 10:00 Doxycycline Hyclate (Vibra-Tab) 100 mg BID PO Last administered on 03/23/16 10 :17; Start 03/22/16 at 19:30 Gabapentin (Neurontin) 600 mg TID PO Last administered on 03/23/16 12:25; Start 03/22/16 at 21:00 Insulin Detemir (Levemir) 15 units QHS SQ ; Start 03/23/16 at 21:00 Potassium Chloride (Klor-Con) 20 meq 1X ONCE PO Last administered on 10:22; Start 03/23/16 at 09:30; Stop 03/23/16 at 09:32; Status DC Albuterol/ Ipratropium (Duoneb) 3 ml RTQID NEB ; Start 03/23/16 at 12:00 Oxycodone/ Acetaminophen (Percocet 5/325) 1 tab PRN Q6HRS PRN PO PAIN Last administered on 03/23/16 13:22; Start 03/23/16 at 13:00 Active Scripts Active Pantoprazole Sodium 40 Mg Tablet. 40 Mg PO DAILYAC 30 Days Cymbalta (Duloxetine Hcl) 60 Mg Capsule. 60 Mg PO DAILY 30 Days Reported Ambien (Zolpidem Tartrate) 10 Mg Tablet 1 Tab PO QHS NICODERM CQ 14mg (Nicotine) 1 Each Patch.td24 1 Patch TP DAILY Meloxicam 15 Mg Tablet 1 Tab PO DAILY Novolog Flexpen (Insulin Aspart) 100 Unit/1 Ml Insuln.pen 5 Unit SQ [id number] Pentoxifylline 400 Mg Tablet.er 400 Mg PO BIDWMEALS Oxycodone Hcl 10 Mg Tablet 15 Mg PO Q8HRS PRN Aspir-Low (Aspirin) 81 Mg Tablet. 1 Tab PO DAILY Voltaren (Diclofenac Sodium) 100 Gm Gel..gram. 1 Gm TP QID Lidoderm (Lidocaine) 700 Mg Adh..patch 1 Patch TP DAILY Neurontin (Gabapentin) 100 Mg Capsule 600 Cap PO TID Levemir (Insulin Detemir) 100 Unit/1 Ml Vial 26 Unit SQ HS Vitals/I & O Vital Sign - Last 24 Hours 03/22/16 03/22/16 03/22/16 03/22/16 15:00 19:59 20:10 23:01 Temp 99.0 98.1 98.2 99.0 98.1 98.2 Pulse 92 82 87 Resp 18 18 18 B/P 96/64 100/72 111/75 Pulse Ox 95 94 96 O2 Delivery Room Air Room Air Room Air Room Air 03/23/16 03/23/16 03/23/16 03/23/16 03:59 07:00 11:00 13:22 Temp 97.9 98.1 100.3 97.9 98.1 100.3 Pulse 100 102 97 Resp 18 20 20 16 B/P 137/92 104/70 114/67 Pulse Ox 94 94 95 O2 Delivery Room Air Room Air Room Air Room Air Intake and Output 03/22/16 03/22/16 03/23/16 15:00 23:00 07:00 Intake Total 120 ml 2205 ml Output Total 1000 ml Balance -880 ml 2205 ml SAUNDRA FORTUNE MD Mar 23, 2016 14:08
[2016-03-23 15:00] VITALS: BP 92/63
--- NOTE | 2016-03-23 16:15 | PDOC ---
Infectious Disease Note Vital Sign Vital Signs Vital Signs Date Time Temp Pulse Resp B/P Pulse Ox O2 Delivery O2 Flow Rate FiO2 03/23/16 15:00 99.1 90 20 92/63 94 Room Air 99.1 Labs Lab Laboratory Tests Test 03/22/16 16:17 03/22/16 20:29 03/23/16 05:50 03/23/16 08:03 Glucose (Fingerstick) 146mg/dL (70-99) 141mg/dL (70-99) 172mg/dL (70-99) White Blood Count 17.4x10^3/uL (4.0-11.0) Red Blood Count 4.51x10^6/uL (3.50-5.40) Hemoglobin 12.0g/dL (12.0-15.5) Hematocrit 37.5% (36.0-47.0) Mean Corpuscular Volume 83fL (79-100) Mean Corpuscular Hemoglobin 27pg (25-35) Mean Corpuscular Hemoglobin Concent 32g/dL (31-37) Red Cell Distribution Width 19.6% (11.5-14.5) Platelet Count 465x10^3/uL (140-400) Erythrocyte Sedimentation Rate 117 (0-25) Sodium Level 136mmol/L (136-145) Potassium Level 3.4mmol/L (3.5-5.1) Chloride Level 100mmol/L (98-107) Carbon Dioxide Level 27mmol/L (21-32) Anion Gap 9 (6-14) Blood Urea Nitrogen 10mg/dL (7-20) Creatinine 0.8mg/dL (0.6-1.0) Estimated GFR (Cockcroft-Gault) 73.4 BUN/Creatinine Ratio 13 (6-20) Glucose Level 48mg/dL (70-99) Calcium Level 9.1mg/dL (8.5-10.1) Total Bilirubin 0.5mg/dL (0.2-1.0) Aspartate Amino Transf (AST/SGOT) 18U/L (15-37) Alanine Aminotransferase (ALT/SGPT) 11U/L (14-59) Alkaline Phosphatase 124U/L (46-116) Total Protein 7.7g/dL (6.4-8.2) Albumin 2.1g/dL (3.4-5.0) Albumin/Globulin Ratio 0.4 (1.0-1.7) Test 03/23/16 11:45 Glucose (Fingerstick) 221mg/dL (70-99) Objective Assessment Fever Leukocytosis, trending up Yeast in the urine. u/a neg Diabetic ulcer of left heel Diarrhea. Recent Keflex prior to admit Chronic back pain. ESR 117 Un controlled DM type II. HTN Plan Plan of Care Await lumbar imaging f/u am labs and c. diff obtain BC will follow Thank you [id number] Attending Co-Sign The patient was seen and interviewed as well as examined at the bedside. The chart was reviewed. The case was discussed. Agree with the plan of care. erik reece ct abd and pelvis PEDRO ROTH APRN Mar 23, 2016 16:15 AALIYAH ELIZONDO MD Mar 23, 2016 16:51
[2016-03-23] MEDS: CEFTRIAXONE SODIUM 1 GM in IV NORMAL SALINE 50ML 50 ML IV SCH (18:26)
[2016-03-23 19:00] VITALS: BP 99/56
--- NOTE | 2016-03-23 20:09 | PREOP HP ---
DATE OF SERVICE: 03/23/2016 Room #428. HISTORY OF PRESENT ILLNESS: The patient is a 60-year-old lady who presented to the Emergency Room with multiple complaints. She has been having fluctuating blood sugars up into 400 and down in the 40s associated with malaise, fatigue and not feeling good. She has been having low grade temperature on and off. She has contacted Dr. Conteh and was directed to come to the Emergency Room. She reports to me that she has not felt good for quite some time. She does have a problem with chronic back pain. She has had multiple epidurals in the past, the last was about 6 months ago. She denies recent steroid prescription, but does report that she has been having fever, low grade malaise, not feeling good, pain in her back, fluctuating blood sugars. Upon her evaluation in the Emergency Room, she had a significantly high white blood count and was admitted for further treatment and evaluation. PAST MEDICAL HISTORY: Significant for peripheral vascular disease, abdominal aortic aneurysm repair, aortofemoral bypass with stent, hypertension, previous history of PE, sleep apnea, but does not wear CPAP, osteoarthritis, degenerative disk disease, back pain, diabetes, anxiety. SOCIAL HISTORY: She does smoke. She denies use of alcohol. She had her pneumonia vaccine. FAMILY HISTORY: Positive for liver cancer. REVIEW OF SYSTEMS: CONSTITUTIONAL: She reports low grade temperature on and off. EYES: Denies visual changes. HEENT: Denies nasal congestion. RESPIRATORY: She does have chronic smoker cough, may be a little worse lately and does have dyspnea on exertion due to COPD. CARDIOVASCULAR: Denies chest pain or edema. GASTROINTESTINAL: Denies abdominal pain. She does have diarrhea on and off and this has been worse after admission, she thinks it is due to the metformin. GENITOURINARY: Denies dysuria. She does have stress incontinence. MUSCULOSKELETAL: She does have back pain, chronic and has had epidurals in the past, last was 6 months ago. DERMATOLOGY: Denies rash. NEUROLOGY: She does have numbness in lower extremities and pain in the lower extremities. Denies focal weakness. PHYSICAL EXAMINATION: GENERAL: She is alert and oriented, in no acute distress. HEENT: Her tympanic membranes are clear. Pharynx is clear. NECK: Supple. LUNGS: With scattered wheezes bilaterally. HEART: Regular rate and rhythm. ABDOMEN: Soft, nontender, no organomegaly, no masses, no bruits, no ascites. EXTREMITIES: No edema, clubbing or cyanosis. She does have lower back pain tenderness that radiate more to the right side. LABORATORY DATA: Her chest x-ray in the Emergency Room did not show an infiltrate. Her sodium was 129 and her sugar was 403, her white count was 15,000. IMPRESSION: 1. Hyperglycemia and uncontrolled diabetes mellitus. 2. Leukocytosis with reported low grade temperature and no recent history of steroid intake, possible bronchitis, but we will check sed rate and consider infectious disease consultation. 3. Chronic back pain, history of epidural in the past. Consider another MRI. 4. Diarrhea, possibly due to metformin, but we will check C. diff. 5. Chronic obstructive pulmonary disease and chronic bronchitis. She was empirically started on doxycycline at this point. 6. Peripheral vascular disease. 7. History of deep venous thrombosis. 8. History of sleep apnea. JOSH GANT MD DR: PHILL/britta JOB#: [id number] / [id number]
[2016-03-23] MEDS ORDERED: INSULIN DETEMIR 300 UNITS/3 ML INSULN.PEN. SQ SCH (21:00)
[2016-03-23] MEDS: ZOLPIDEM 5 MG TABLET. PO SCH (22:16)
[2016-03-23 23:00] VITALS: BP 129/83
[2016-03-24] MEDS: OXYCODONE/APAP 5/325 TABLET. PO PRN ×3 (00:57→21:04)
[2016-03-24 03:00] VITALS: BP 126/80
[2016-03-24] MEDS: POTASSIUM CHLORIDE 30 MEQ in IV 1/2 NORMAL SALINE 1,000 ML IV SCH ×2 (06:17→18:22)
[2016-03-24 07:00] VITALS: BP 82/59
[2016-03-24] MEDS: IPRATRPIUM/ALBUTEROL 0.5/2.5MG 3 ML NEBU. NEB SCH ×4 (08:00→18:13)
[2016-03-24] MEDS: DULOXETINE HCL 30 MG CAPSULE.DR. PO SCH (08:10)
[2016-03-24] MEDS: PANTOPRAZOLE 40 MG TABLET. PO SCH (08:10)
[2016-03-24] MEDS: ASPIRIN ENTERIC COATED 81 MG TABLET.DR. PO SCH (08:10)
[2016-03-24] MEDS: GABAPENTIN 300 MG CAPSULE. PO SCH ×3 (08:10→21:03)
--- NOTE | 2016-03-24 08:41 | RAD ---
LUMBAR SPINE 2-3V History:Back pain, recent falls Comparison: Reconstruction images from CT exam 08/05/2014 Findings:3 views of the lumbar spine are submitted. There is superior L2 compression deformity, also mild anterior wedge deformity of L1 although findings present on previous CT exam. Lumbar vertebral body AP alignment is maintained. No acute fracture is identified by radiographs. There is facet degenerative change of the inferior lumbar spine. There are stents in the iliac arteries. There has been cholecystectomy. Impression: 1.No acute fracture is identified by radiographs. There is superior L2 compression deformity and also anterior L1 wedge deformity although similar to previous CT exam.
[2016-03-24 09:45] LABS: HEMATOCRIT 37.1 % (36.0-47.0); HEMOGLOBIN 11.9 g/dL (12.0-15.5); RED BLOOD COUNT 4.5 x10^6/uL (3.50-5.40); WHITE BLOOD COUNT 11.6 x10^3/uL (4.0-11.0)
[2016-03-24 09:47] LABS: ALBUMIN 2.1 g/dL (3.4-5.0); ALBUMIN/GLOBULIN RATIO 0.4 (1.0-1.7); CALCIUM 9.3 mg/dL (8.5-10.1); GFR 56.7; POTASSIUM 4.3 mmol/L (3.5-5.1); TOTAL BILIRUBIN 0.4 mg/dL (0.2-1.0)
[2016-03-24] MEDS ORDERED: IOHEXOL 240 MG/ML 50ML VIAL. PO ONE (10:15)
[2016-03-24] MEDS ORDERED: CONTRAST GIVEN MC PRN (10:15)
[2016-03-24] MEDS ORDERED: IOHEXOL 300 MG/ML 75 ML VIAL IV ONE (10:15)
[2016-03-24 11:00] VITALS: BP 141/68
--- NOTE | 2016-03-24 11:21 | PDOC ---
Infectious Disease Note Subjective Subjective Feeling alright Denies further bouts of diarrhea. No fever since yesterday ROS ROS GEN: Denies chills, sweats CV: Denies chest pain RESP: Denies shortness of air, cough GI: Denies n/v Vital Sign Vital Signs Vital Signs Date Time Temp Pulse Resp B/P Pulse Ox O2 Delivery O2 Flow Rate FiO2 03/24/16 11:00 97.9 75 20 141/68 95 Room Air 97.9 Physical Exam PHYSICAL EXAM GENERAL: Sleeping, arouses easily to name HEENT: OC/OP clear LUNGS: Clear HEART: S1S2 ABD: Soft, NT EXT: No edema, no cyanosis SKIN: No rash. left heel ulcer IV: ok Labs Lab Laboratory Tests Test 03/23/16 11:45 03/23/16 17:16 03/23/16 20:56 03/24/16 07:24 Glucose (Fingerstick) 221mg/dL (70-99) 219mg/dL (70-99) 264mg/dL (70-99) 54mg/dL (70-99) Test 03/24/16 09:00 White Blood Count 11.6x10^3/uL (4.0-11.0) Red Blood Count 4.50x10^6/uL (3.50-5.40) Hemoglobin 11.9g/dL (12.0-15.5) Hematocrit 37.1% (36.0-47.0) Mean Corpuscular Volume 83fL (79-100) Mean Corpuscular Hemoglobin 27pg (25-35) Mean Corpuscular Hemoglobin Concent 32g/dL (31-37) Red Cell Distribution Width 19.0% (11.5-14.5) Platelet Count 513x10^3/uL (140-400) Sodium Level 137mmol/L (136-145) Potassium Level 4.3mmol/L (3.5-5.1) Chloride Level 101mmol/L (98-107) Carbon Dioxide Level 26mmol/L (21-32) Anion Gap 10 (6-14) Blood Urea Nitrogen 8mg/dL (7-20) Creatinine 1.0mg/dL (0.6-1.0) Estimated GFR (Cockcroft-Gault) 56.7 BUN/Creatinine Ratio 8 (6-20) Glucose Level 136mg/dL (70-99) Calcium Level 9.3mg/dL (8.5-10.1) Total Bilirubin 0.4mg/dL (0.2-1.0) Aspartate Amino Transf (AST/SGOT) 21U/L (15-37) Alanine Aminotransferase (ALT/SGPT) 11U/L (14-59) Alkaline Phosphatase 131U/L (46-116) Total Protein 8.0g/dL (6.4-8.2) Albumin 2.1g/dL (3.4-5.0) Albumin/Globulin Ratio 0.4 (1.0-1.7) LUMBAR SPINE 2-3V History:Back pain, recent falls Comparison: Reconstruction images from CT exam 08/05/2014 Findings:3 views of the lumbar spine are submitted. There is superior L2 compression deformity, also mild anterior wedge deformity of L1 although findings present on previous CT exam. Lumbar vertebral body AP alignment is maintained. No acute fracture is identified by radiographs. There is facet degenerative change of the inferior lumbar spine. There are stents in the iliac arteries. There has been cholecystectomy. Impression: 1.No acute fracture is identified by radiographs. There is superior L2 compression deformity and also anterior L1 wedge deformity although similar to previous CT exam. Micro URINE CULTURE RES 1 Final Comment No growth in 48 hours. Objective Assessment Fever Leukocytosis, improved Yeast in the urine. Diabetic ulcer of left heel Diarrhea. Recent Keflex prior to admit Chronic back pain. ESR 117 Un controlled DM type II. HTN Plan Plan of Care Rocephin f/u am labs and c. diff BC pending Await CT abd/pelvis Attending Co-Sign The patient was seen and interviewed as well as examined at the bedside. The chart was reviewed. The case was discussed. Agree with the plan of care. PEDRO ROTH APRN Mar 24, 2016 11:21 AALIYAH ELIZONDO MD Mar 24, 2016 13:31
--- NOTE | 2016-03-24 11:50 | PDOC ---
SUBJECTIVE Subjective feels better, BS down again this AM OBJECTIVE Vital Signs Vital Signs Date Time Temp Pulse Resp B/P Pulse Ox O2 Delivery O2 Flow Rate FiO2 03/24/16 11:00 97.9 75 20 141/68 95 Room Air 97.9 03/24/16 07:00 97.7 73 20 82/59 97 Room Air 97.7 03/24/16 03:00 98.3 88 18 126/80 93 Room Air 98.3 03/23/16 23:00 94 03/23/16 23:00 98.9 95 20 129/83 Room Air 98.9 03/23/16 19:00 98.8 89 20 99/56 Room Air 98.8 03/23/16 19:00 94 03/23/16 15:00 99.1 90 20 92/63 94 Room Air 99.1 03/23/16 14:22 16 Room Air 03/23/16 13:22 16 Room Air I & O Intake and Output 03/24/16 07:00 Intake Total 1120 ml Output Total 1200 ml Balance -80 ml Intake Oral 1120 ml Output Urine Total 1200 ml # Voids 8 PHYSICAL EXAM Physical Exam lungs sound better heart RRR abd soft ASSESSMENT/PLAN Assessment/Plan 1. Hyperglycemia and uncontrolled diabetes mellitus. intolerant to Metformin might do ok on oral only since BS still going down with low dose Levemir 2. Leukocytosis with low grade temperature appreciate ID help WBC down today, CT abd and pelvis Pending 3. Chronic back pain, history of epidural in the past. Consider another MRI. 4. Diarrhea, due to metformin, stopped since Metformin stopped 5. Chronic obstructive pulmonary disease and chronic bronchitis. 6. Peripheral vascular disease. 7. History of deep venous thrombosis. 8. History of sleep apnea. Dr. Rodriguez will resume care in AM Problems: COMMENT Lab Laboratory Tests Test 03/23/16 17:16 03/23/16 20:56 03/24/16 07:24 03/24/16 09:00 Glucose (Fingerstick) 219mg/dL (70-99) 264mg/dL (70-99) 54mg/dL (70-99) White Blood Count 11.6x10^3/uL (4.0-11.0) Red Blood Count 4.50x10^6/uL (3.50-5.40) Hemoglobin 11.9g/dL (12.0-15.5) Hematocrit 37.1% (36.0-47.0) Mean Corpuscular Volume 83fL (79-100) Mean Corpuscular Hemoglobin 27pg (25-35) Mean Corpuscular Hemoglobin Concent 32g/dL (31-37) Red Cell Distribution Width 19.0% (11.5-14.5) Platelet Count 513x10^3/uL (140-400) Sodium Level 137mmol/L (136-145) Potassium Level 4.3mmol/L (3.5-5.1) Chloride Level 101mmol/L (98-107) Carbon Dioxide Level 26mmol/L (21-32) Anion Gap 10 (6-14) Blood Urea Nitrogen 8mg/dL (7-20) Creatinine 1.0mg/dL (0.6-1.0) Estimated GFR (Cockcroft-Gault) 56.7 BUN/Creatinine Ratio 8 (6-20) Glucose Level 136mg/dL (70-99) Calcium Level 9.3mg/dL (8.5-10.1) Total Bilirubin 0.4mg/dL (0.2-1.0) Aspartate Amino Transf (AST/SGOT) 21U/L (15-37) Alanine Aminotransferase (ALT/SGPT) 11U/L (14-59) Alkaline Phosphatase 131U/L (46-116) Total Protein 8.0g/dL (6.4-8.2) Albumin 2.1g/dL (3.4-5.0) Albumin/Globulin Ratio 0.4 (1.0-1.7) JOSH GANT MD Mar 24, 2016 11:50
--- NOTE | 2016-03-24 12:43 | RAD ---
ABD PELV W/ ORAL IV CONTRAST History:Fever, right lower abdominal pain Technique: After administration of intravenous and oral contrast, CT imaging was performed of the abdomen and pelvis, multiplanar reconstruction images submitted. Exposure: One or more of the following individualized dose reduction techniques were utilized for this exam: 1. Automated exposure control. 2. Adjustment of the mA and/or KV according to patient size. 3. Use of iterative reconstruction technique. Contrast: 75 cc Omnipaque 300 Comparison: 03/09/2015 Findings:There is small left pleural effusion with adjacent mild atelectasis. There is also very small dependent right pleural effusion. There is a small quantity of pericardial fluid also now present. There are now a few left pericardiophrenic nodes present, largest 0.9 cm short axis dimension. No new focal abnormality is identified of the liver, spleen, small pancreas. Pancreatic duct is again visualized. There is again dilatation of the extrahepatic common bile duct 0.9 cm although stable and there has been previous cholecystectomy. There is no new discrete adrenal nodularity. Both kidneys enhance, no hydronephrosis. There is again small hypodense lesion of the superior left kidney difficult to further characterize of 0.6 cm. There is another hypodense lesion of the mid to inferior left kidney on the order of 1.6 cm, density characteristics of a cyst. There are again small calculi near the superior right calyceal margin although there is other vascular calcifications present. There is again aortoiliac bypass graft. There is again shallow ventral fat-containing hernia of the superior abdomen, another broad fat-containing hernia with anterior margin of the stomach at the margin with transverse dimension of hernia neck on the order of 5.4 cm. Another small ventral fat-containing hernia is seen just above the umbilicus, no bowel. There is retained stool greatest of the right colon. There is no significant bowel dilatation, free air, free fluid. The appendix is difficult to confidently visualize, may be located immediately adjacent to the cecum. There is similar degree of superior L2 compression deformity. There is multilevel degenerative disc disease of the inferior thoracic and superior lumbar spine, also multilevel thoracic spondylosis. Impression: 1.No significant acute abnormality is identified although difficult to confidently visualize the appendix. There is no free fluid or free air. 2. There are stable hypodense foci of the left kidney, largest compatible with a cyst. 3. There are now small left greater than right pleural effusions, also small quantity of pericardial fluid. There are a few new nonspecific left pericardiophrenic lymph nodes. 4. There are ventral fat-containing hernias as stated.
[2016-03-24] MEDS ORDERED: LINAGLIPTIN 5 MG TABLET PO SCH (13:00)
[2016-03-24 15:00] VITALS: BP 141/68
[2016-03-24] MEDS: CEFTRIAXONE SODIUM 1 GM in IV NORMAL SALINE 50ML 50 ML IV SCH (18:21)
[2016-03-24 19:00] VITALS: BP 122/83
--- NOTE | 2016-03-24 19:58 | CONS ---
DATE OF CONSULTATION: 03/23/2016 This is Alexis Terrazas NP, dictating for Dr. Mor Elizondo. REFERRING PHYSICIAN: Dr. Valdez. REASON FOR CONSULTATION: Leukocytosis and fever. HISTORY OF PRESENT ILLNESS: This patient is a 60-year-old woman with diabetes mellitus type 2, who presented with hyperglycemia and generalized malaise. She was found to have elevated white blood cell count of 15,500. She has been running low grade fevers. Sed rate is 117. Urinalysis is positive for yeast. Urine culture with no growth. Chest x-ray was unremarkable. The patient denies headaches, sinus, nasal/congestion or sore throat. Denies cough, shortness of air or wheezing. She reports diarrhea since admission. She was on recent Keflex a couple of weeks ago for a left heel blister. Denies nausea, vomiting or abdominal cramping. Denies dysuria, frequency or urgency. She has chronic muscle aches and joint pains as well as chronic back pain without change in intensity. Denies loss of bowel or bladder function or lower extremity weakness. Denies chills, sweats, or significant weight changes. PAST MEDICAL HISTORY: Diabetes mellitus type 2, hypertension, coronary artery disease, pulmonary emboli, peripheral vascular disease, sleep apnea, degenerative disc disease, chronic pain, fall and osteoarthritis. PAST SURGICAL HISTORY: Appendectomy, cholecystectomy, hysterectomy, aortic and femoral bypass. SOCIAL HISTORY: The patient lives at home. She is a smoker. FAMILY HISTORY: Positive for liver cancer. ALLERGIES: HYDROCODONE. MEDICATIONS: Doxycycline and fluconazole. Other medications are available and have been reviewed on the MAR. REVIEW OF SYSTEMS: Per HPI. PHYSICAL EXAMINATION: GENERAL: female, propped up in bed, in no apparent distress. VITAL SIGNS: Temperature is 99.1, T-max 100.3, blood pressure 92/63, heart rate 90, respiratory rate 20, pulse oximetry is 94% on room air. Weight is 131 pounds. HEENT: Pupils equally round, reactive. Normal conjunctivae. Oral mucosa is pink and moist. Missing teeth. NECK: Supple, no adenopathy present. LUNGS: Clear to auscultation. HEART: Normal S1 and S2. Positive murmur. ABDOMEN: Bowel sounds are present, soft, nontender. EXTREMITIES: No gross edema or cyanosis. SKIN: Without rash. Warm to touch. She has an ulcer on the left heel measuring 1.5 cm x 1 cm. Refer to chart for further description and pictures. NEUROLOGIC: Alert and oriented x 3. Moves all extremities. LABORATORY DATA: Recent WBC 17.4, hemoglobin 12.0, hematocrit 37.5, platelet count 465,000. Sed rate 117. Sodium 136, potassium 3.4, creatinine 0.8, BUN 10, glucose 221. Hemoglobin A1c is 9.0. Total bilirubin 0.5, AST 18, ALT 11. Troponin 0.031, albumin 2.4. Urinalysis positive for yeast. Urine culture, no growth. X-ray of the lumbar spine pending. Chest x-ray unremarkable. Stool for Clostridium difficile has been ordered. IMPRESSION: 1. Fever. 2. Leukocytosis. 3. Yeast in urine. 4. Diabetic ulcer of left heel. 5. Diarrhea. 6. Chronic back pain. 7. Uncontrolled diabetes mellitus type 2. 8. Hypertension. PLAN: We will adjust the antibiotics and continue the fluconazole. Await lumbar and imaging results and add CT scan abdomen and pelvis. Obtain a set of blood cultures. We will follow up on morning laboratory values. Supportive care. Thank you, Dr. Valdez, for asking us to participate in this patient's care. Should you have further questions or concerns, please call. Patient seen, examined and plan of care implemented by Dr. Mor Elizondo. MOR ELIZONDO MD DR: DONAL/britta JOB#: [id number] / [id number] HAMIDA
[2016-03-24] MEDS ORDERED: INSULIN DETEMIR 300 UNITS/3 ML INSULN.PEN. SQ SCH (21:00)
[2016-03-24] MEDS: ZOLPIDEM 5 MG TABLET. PO SCH (21:04)
[2016-03-24] MEDS: ZOLPIDEM 5 MG TABLET. PO PRN (22:44)
[2016-03-24] MEDS ORDERED: INSULIN DETEMIR 300 UNITS/3 ML INSULN.PEN. SQ ONE (22:45)
[2016-03-24] MEDS ORDERED: INSULIN ASPART 300 UNITS/3 ML INSULN.PEN SQ ONE (22:45)
[2016-03-24 23:22] VITALS: BP 133/89
[2016-03-25 03:33] VITALS: BP 132/86
[2016-03-25] MEDS: POTASSIUM CHLORIDE 30 MEQ in IV 1/2 NORMAL SALINE 1,000 ML IV SCH (03:38)
[2016-03-25 05:05] LABS: HEMATOCRIT 36.6 % (36.0-47.0); RED BLOOD COUNT 4.39 x10^6/uL (3.50-5.40); RED CELL DISTRIBUTION WIDTH 19.3 % (11.5-14.5); WHITE BLOOD COUNT 10.9 x10^3/uL (4.0-11.0)
[2016-03-25 05:48] LABS: CALCIUM 9.4 mg/dL (8.5-10.1); GFR 56.7; POTASSIUM 4.6 mmol/L (3.5-5.1)
[2016-03-25] MEDS: IPRATRPIUM/ALBUTEROL 0.5/2.5MG 3 ML NEBU. NEB SCH ×4 (06:08→19:39)
[2016-03-25 07:00] VITALS: BP 145/73
[2016-03-25] MEDS ORDERED: INSULIN ASPART 300 UNITS/3 ML INSULN.PEN SQ SCH (07:30)
--- NOTE | 2016-03-25 08:34 | PDOC ---
Provider Note Provider Note afeb > 48 hrs, L heel blister looks less red- will go to po keflex, add more levemir, follow - high a1c may be re poor compliance at home CARLENE SARAH MD Mar 25, 2016 08:34
[2016-03-25] MEDS ORDERED: GLIMEPIRIDE 2 MG TABLET PO SCH (09:00)
[2016-03-25] MEDS: PANTOPRAZOLE 40 MG TABLET. PO SCH (09:20)
[2016-03-25] MEDS: DULOXETINE HCL 30 MG CAPSULE.DR. PO SCH (09:20)
[2016-03-25] MEDS: ASPIRIN ENTERIC COATED 81 MG TABLET.DR. PO SCH (09:21)
[2016-03-25] MEDS: GABAPENTIN 300 MG CAPSULE. PO SCH ×3 (09:21→22:12)
[2016-03-25] MEDS: CEPHALEXIN 250 MG CAPSULE PO SCH ×3 (09:25→22:12)
--- NOTE | 2016-03-25 10:07 | PDOC ---
Infectious Disease Note Subjective Subjective feeling good ROS ROS GEN: Denies fevers, chills, sweats HEENT: Denies blurred vision, sore throat CV: Denies chest pain RESP: Denies shortness of air, cough GI: Denies n/v/d NEURO: Denies confusion, dizziness MSK: Denies weakness, joint pain/swelling Vital Sign Vital Signs Vital Signs Date Time Temp Pulse Resp B/P Pulse Ox O2 Delivery O2 Flow Rate FiO2 03/25/16 07:00 97.7 81 16 145/73 97 Room Air 97.7 Physical Exam PHYSICAL EXAM GENERAL: NAD, Alert HEENT: PERRL, OC/OP NECK: Supple, no JVD, no LN LUNGS: Clear HEART: S1S2, no gallop, no murmur ABD: Soft, NT, no organomegaly, no rebound EXT: No edema, no cyanosis INSTRUMENT LENS GRINDER: Alert, oriented x 3, no focal neurologic deficit SKIN: No rash IV: ok Labs Lab Laboratory Tests Test 03/24/16 11:59 03/24/16 16:58 03/24/16 21:27 03/25/16 04:32 Glucose (Fingerstick) 124mg/dL (70-99) 313mg/dL (70-99) 422mg/dL (70-99) White Blood Count 10.9x10^3/uL (4.0-11.0) Red Blood Count 4.39x10^6/uL (3.50-5.40) Hemoglobin 12.0g/dL (12.0-15.5) Hematocrit 36.6% (36.0-47.0) Mean Corpuscular Volume 83fL (79-100) Mean Corpuscular Hemoglobin 27pg (25-35) Mean Corpuscular Hemoglobin Concent 33g/dL (31-37) Red Cell Distribution Width 19.3% (11.5-14.5) Platelet Count 533x10^3/uL (140-400) Sodium Level 140mmol/L (136-145) Potassium Level 4.6mmol/L (3.5-5.1) Chloride Level 101mmol/L (98-107) Carbon Dioxide Level 29mmol/L (21-32) Anion Gap 10 (6-14) Blood Urea Nitrogen 8mg/dL (7-20) Creatinine 1.0mg/dL (0.6-1.0) Estimated GFR (Cockcroft-Gault) 56.7 Glucose Level 139mg/dL (70-99) Calcium Level 9.4mg/dL (8.5-10.1) Test 03/25/16 07:38 Glucose (Fingerstick) 158mg/dL (70-99) Objective Assessment Fever Leukocytosis, trending up Yeast in the urine. u/a neg Diabetic ulcer of left heel Diarrhea. Recent Keflex prior to admit Chronic back pain. ESR 117 Un controlled DM type II. HTN Plan Plan of Care change to po for d/c off load the heel AALIYAH ELIZONDO MD Mar 25, 2016 10:07
[2016-03-25 11:00] VITALS: BP 112/72
--- NOTE | 2016-03-25 12:42 | PDOC ---
PROGRESS NOTES Subjective Subjective Pt stated she had some pain in her shoulder. Pt denied chest pain, SOB, n/v, diaphoresis. Pt also stated he feels hot. Pt stated her bowel movements were normal with no painful urination. No other complaints at this time. Objective Objective Vital Signs Date Time Temp Pulse Resp B/P Pulse Ox O2 Delivery O2 Flow Rate FiO2 03/25/16 11:00 98.2 94 14 112/72 94 Room Air 98.2 Intake and Output 03/25/16 07:00 Intake Total 1015 ml Output Total 1000 ml Balance 15 ml IV Total 1015 ml Output Urine Total 1000 ml # Voids 4 Physical Exam Physical Exam No change in cardiac exam Assessment Assessment Problems Medical Problems: (1) Hyperglycemia Status: Acute (2) Hypoglycemia Status: Acute Plan Plan of Care Stable from cardiac perspective Comment Review of Relevant I have reviewed the following items sarahy (where applicable) has been applied. Labs Laboratory Tests Test 03/23/16 17:16 03/23/16 20:56 03/24/16 07:24 03/24/16 09:00 Glucose (Fingerstick) 219mg/dL (70-99) 264mg/dL (70-99) 54mg/dL (70-99) White Blood Count 11.6x10^3/uL (4.0-11.0) Red Blood Count 4.50x10^6/uL (3.50-5.40) Hemoglobin 11.9g/dL (12.0-15.5) Hematocrit 37.1% (36.0-47.0) Mean Corpuscular Volume 83fL (79-100) Mean Corpuscular Hemoglobin 27pg (25-35) Mean Corpuscular Hemoglobin Concent 32g/dL (31-37) Red Cell Distribution Width 19.0% (11.5-14.5) Platelet Count 513x10^3/uL (140-400) Sodium Level 137mmol/L (136-145) Potassium Level 4.3mmol/L (3.5-5.1) Chloride Level 101mmol/L (98-107) Carbon Dioxide Level 26mmol/L (21-32) Anion Gap 10 (6-14) Blood Urea Nitrogen 8mg/dL (7-20) Creatinine 1.0mg/dL (0.6-1.0) Estimated GFR (Cockcroft-Gault) 56.7 BUN/Creatinine Ratio 8 (6-20) Glucose Level 136mg/dL (70-99) Calcium Level 9.3mg/dL (8.5-10.1) Total Bilirubin 0.4mg/dL (0.2-1.0) Aspartate Amino Transf (AST/SGOT) 21U/L (15-37) Alanine Aminotransferase (ALT/SGPT) 11U/L (14-59) Alkaline Phosphatase 131U/L (46-116) Total Protein 8.0g/dL (6.4-8.2) Albumin 2.1g/dL (3.4-5.0) Albumin/Globulin Ratio 0.4 (1.0-1.7) Test 03/24/16 11:59 03/24/16 16:58 03/24/16 21:27 03/25/16 04:32 Glucose (Fingerstick) 124mg/dL (70-99) 313mg/dL (70-99) 422mg/dL (70-99) White Blood Count 10.9x10^3/uL (4.0-11.0) Red Blood Count 4.39x10^6/uL (3.50-5.40) Hemoglobin 12.0g/dL (12.0-15.5) Hematocrit 36.6% (36.0-47.0) Mean Corpuscular Volume 83fL (79-100) Mean Corpuscular Hemoglobin 27pg (25-35) Mean Corpuscular Hemoglobin Concent 33g/dL (31-37) Red Cell Distribution Width 19.3% (11.5-14.5) Platelet Count 533x10^3/uL (140-400) Sodium Level 140mmol/L (136-145) Potassium Level 4.6mmol/L (3.5-5.1) Chloride Level 101mmol/L (98-107) Carbon Dioxide Level 29mmol/L (21-32) Anion Gap 10 (6-14) Blood Urea Nitrogen 8mg/dL (7-20) Creatinine 1.0mg/dL (0.6-1.0) Estimated GFR (Cockcroft-Gault) 56.7 Glucose Level 139mg/dL (70-99) Calcium Level 9.4mg/dL (8.5-10.1) Test 2/13/17 07:38 03/25/16 11:09 Glucose (Fingerstick) 158mg/dL (70-99) 268mg/dL (70-99) Laboratory Tests Test 03/24/16 16:58 03/24/16 21:27 03/25/16 04:32 03/25/16 07:38 Glucose (Fingerstick) 313mg/dL (70-99) 422mg/dL (70-99) 158mg/dL (70-99) White Blood Count 10.9x10^3/uL (4.0-11.0) Red Blood Count 4.39x10^6/uL (3.50-5.40) Hemoglobin 12.0g/dL (12.0-15.5) Hematocrit 36.6% (36.0-47.0) Mean Corpuscular Volume 83fL (79-100) Mean Corpuscular Hemoglobin 27pg (25-35) Mean Corpuscular Hemoglobin Concent 33g/dL (31-37) Red Cell Distribution Width 19.3% (11.5-14.5) Platelet Count 533x10^3/uL (140-400) Sodium Level 140mmol/L (136-145) Potassium Level 4.6mmol/L (3.5-5.1) Chloride Level 101mmol/L (98-107) Carbon Dioxide Level 29mmol/L (21-32) Anion Gap 10 (6-14) Blood Urea Nitrogen 8mg/dL (7-20) Creatinine 1.0mg/dL (0.6-1.0) Estimated GFR (Cockcroft-Gault) 56.7 Glucose Level 139mg/dL (70-99) Calcium Level 9.4mg/dL (8.5-10.1) Test 03/25/16 11:09 Glucose (Fingerstick) 268mg/dL (70-99) Microbiology 03/23/16 Blood Culture - Preliminary, Resulted NO GROWTH AFTER 1 DAY 03/21/16 Urine Culture - Final, Complete 03/21/16 Urine Culture Result 1 (BUSTER) - Final, Complete Medications Current Medications Sodium Chloride (Iv Sodium Chloride 0.9% 1000ml Bag) 1,000 ml @ 1,000 mls/hr Q1H IV Last administered on 03/21/16 19:01; Start 03/21/16 at 17:38; Stop at 18:37; Status DC Insulin Aspart (Novolog) 0-7 UNITS TIDWMEALS SQ Last administered on 03/22/16 12:26; Start 03/22/16 at 08:00; Stop 03/23/16 at 09:32; Status DC Dextrose 12.5 gm PRN Q15MIN PRN IV SEE COMMENTS Last administered on 03/24/16 08:06; Start 03/21/16 at 21:15 Insulin Aspart (Novolog) 4 units 1X ONCE SQ Last administered on 03/21/16 23: 07; Start 03/21/16 at 23:00; Stop 03/21/16 at 23:01; Status DC Ondansetron HCl 4 mg 4 mg PRN Q8HRS PRN IV NAUSEA/VOMITING; Start 03/21/16 at 23 :15; Stop 03/22/16 at 23:14; Status DC Sodium Chloride (Iv Sodium Chloride 0.9% 1000ml Bag) 1,000 ml @ 125 mls/hr Q8H IV Last administered on 03/22/16 08:43; Start 03/21/16 at 23:15; Stop 03/22/16 at 08:59; Status DC Acetaminophen (Tylenol) 650 mg PRN Q4HRS PRN PO FEVER Last administered on 03/22 15:38; Start 03/21/16 at 23:15; Stop 03/22/16 at 23:14; Status DC Fluconazole (Diflucan) 200 mg DAILY PO Last administered on 03/23/16 10:15; Start 03/22/16 at 09:00; Stop 03/23/16 at 16:53; Status DC Aspirin (Ecotrin) 81 mg DAILY PO Last administered on 03/25/16 09:21; Start at 09:00 Gabapentin (Neurontin) 600 mg TID PO Last administered on 03/22/16 15:37; Start 03/22/16 at 09:00; Stop 03/22/16 at 20:46; Status DC Pantoprazole Sodium (Protonix) 40 mg DAILYAC PO Last administered on 03/25/16 09:20; Start 03/22/16 at 11:30 Duloxetine HCl (Cymbalta) 60 mg DAILY PO Last administered on 03/25/16 09:20; Start 03/22/16 at 09:00 Zolpidem Tartrate (Ambien) 5 mg QHS PO Last administered on 03/24/16 21:04; Start 03/22/16 at 21:00 Zolpidem Tartrate (Ambien) 5 mg PRN QHS PRN PO INSOMNIA Last administered on 22:44; Start 03/22/16 at 09:00 Metformin HCl (Glucophage) 1,000 mg BIDWMEALS PO Last administered on 10:22; Start 03/22/16 at 09:15; Stop 03/23/16 at 13:23; Status DC Insulin Detemir (Levemir) 20 units QHS SQ Last administered on 03/22/16 21:24 ; Start 03/22/16 at 21:00; Stop 03/23/16 at 09:32; Status DC Insulin Detemir 10 units 10 units 1X ONCE SQ Last administered on 03/22/16 12 :27; Start 03/22/16 at 09:30; Stop 03/22/16 at 09:31; Status DC Potassium Chloride/Sodium Chloride (Iv Sodium Chloride 0.45%) 1,015 ml @ 75 mls /hr [id number] IV Last administered on 03/25/16 03:38; Start 03/22/16 at 10:00; Stop 03/25/16 at 08:32; Status DC Doxycycline Hyclate (Vibra-Tab) 100 mg BID PO Last administered on 03/23/16 10 :17; Start 03/22/16 at 19:30; Stop 03/23/16 at 16:53; Status DC Gabapentin (Neurontin) 600 mg TID PO Last administered on 03/25/16 09:21; Start 03/22/16 at 21:00 Insulin Detemir (Levemir) 15 units QHS SQ Last administered on 03/23/16 22:29 ; Start 03/23/16 at 21:00; Stop 03/24/16 at 09:45; Status DC Potassium Chloride (Klor-Con) 20 meq 1X ONCE PO Last administered on 10:22; Start 03/23/16 at 09:30; Stop 03/23/16 at 09:32; Status DC Albuterol/ Ipratropium (Duoneb) 3 ml RTQID NEB ; Start 03/23/16 at 12:00 Oxycodone/ Acetaminophen 1 tab 1 tab PRN Q6HRS PRN PO PAIN Last administered on 03/24/16 21:04; Start 03/23/16 at 13:00 Ceftriaxone Sodium/Sodium Chloride (Rocephin/Iv Sodium Chloride 0.9% 50ml) 50 ml @ 100 mls/hr Q24H IV Last administered on 03/24/16 18:21; Start 03/23/16 at 17:00; Stop 03/25/16 at 08:32; Status DC Insulin Detemir (Levemir) 12 units QHS SQ ; Start 03/24/16 at 21:00; Stop at 21:00; Status DC Iohexol (Omnipaque 300 Mg/ml) 75 ml 1X ONCE IV Last administered on 03/24/16 11:39; Start 03/24/16 at 10:15; Stop 03/24/16 at 10:16; Status DC Iohexol (Omnipaque 240 Mg/ml) 50 ml 1X ONCE PO Last administered on 03/24/16 11:39; Start 03/24/16 at 10:15; Stop 03/24/16 at 10:16; Status DC Info (Do NOT chart on this entry -- for MONITORING) 1 each PRN DAILY PRN MC SEE COMMENTS; Start 03/24/16 at 10:15; Stop 03/26/16 at 10:14 Linagliptin (Tradjenta) 5 mg DAILY PO Last administered on 03/24/16 14:21; Start 03/24/16 at 13:00; Stop 03/25/16 at 08:32; Status DC Glimepiride (Amaryl) 2 mg DAILY PO ; Start 03/25/16 at 09:00; Stop 03/25/16 at 09:00; Status DC Insulin Aspart (Novolog) TIDAC SQ ; Start 03/25/16 at 07:30; Status UNV Insulin Detemir (Levemir) 8 units QHS SQ ; Start 03/25/16 at 21:00; Stop at 21:00; Status DC Insulin Detemir (Levemir) 8 units 1X ONCE SQ Last administered on 03/24/16 22 :50; Start 03/24/16 at 22:45; Stop 03/24/16 at 22:46; Status DC Insulin Aspart (Novolog) 5 units 1X ONCE SQ Last administered on 03/24/16 22: 51; Start 03/24/16 at 22:45; Stop 03/24/16 at 22:46; Status DC Insulin Detemir (Levemir) 10 units QHS SQ ; Start 03/25/16 at 21:00 Cephalexin HCl (Keflex) 500 mg TID PO Last administered on 03/25/16 09:25; Start 03/25/16 at 09:00 Active Scripts Active Pantoprazole Sodium 40 Mg Tablet. 40 Mg PO DAILYAC 30 Days Cymbalta (Duloxetine Hcl) 60 Mg Capsule. 60 Mg PO DAILY 30 Days Reported Ambien (Zolpidem Tartrate) 10 Mg Tablet 1 Tab PO QHS NICODERM CQ 14mg (Nicotine) 1 Each Patch.td24 1 Patch TP DAILY Meloxicam 15 Mg Tablet 1 Tab PO DAILY Novolog Flexpen (Insulin Aspart) 100 Unit/1 Ml Insuln.pen 5 Unit SQ DAILYWBKFT Pentoxifylline 400 Mg Tablet.er 400 Mg PO BIDWMEALS Oxycodone Hcl 10 Mg Tablet 15 Mg PO Q8HRS PRN Aspir-Low (Aspirin) 81 Mg Tablet. 1 Tab PO DAILY Voltaren (Diclofenac Sodium) 100 Gm Gel..gram. 1 Gm TP QID Lidoderm (Lidocaine) 700 Mg Adh..patch 1 Patch TP DAILY Neurontin (Gabapentin) 100 Mg Capsule 600 Cap PO TID Levemir (Insulin Detemir) 100 Unit/1 Ml Vial 26 Unit SQ HS Vitals/I & O Vital Sign - Last 24 Hours 03/24/16 03/24/16 03/24/16 03/24/16 14:22 15:00 15:22 19:00 Temp 97.9 98.1 97.9 98.1 Pulse 75 89 Resp 16 20 16 18 B/P 141/68 122/83 Pulse Ox 95 96 O2 Delivery Room Air Room Air Room Air Room Air 03/24/16 03/25/16 03/25/16 03/25/16 23:22 03:33 07:00 11:00 Temp 98.1 97.9 97.7 98.2 98.1 97.9 97.7 98.2 Pulse 88 87 81 94 Resp 18 18 16 14 B/P 133/89 132/86 145/73 112/72 Pulse Ox 99 96 97 94 O2 Delivery Room Air Room Air Room Air Room Air Intake and Output 03/24/16 03/24/16 03/25/16 15:00 23:00 07:00 Intake Total 1015 ml Output Total 1000 ml Balance 1015 ml -1000 ml SAUNDRA FORTUNE MD Mar 25, 2016 12:42
[2016-03-25 15:00] VITALS: BP 166/71
[2016-03-25 19:00] VITALS: BP 119/74
[2016-03-25] MEDS ORDERED: INSULIN DETEMIR 300 UNITS/3 ML INSULN.PEN. SQ SCH ×2 (21:00)
[2016-03-25] MEDS: ZOLPIDEM 5 MG TABLET. PO SCH (22:12)
[2016-03-25] MEDS: OXYCODONE/APAP 5/325 TABLET. PO PRN (22:26)
[2016-03-25] MEDS ORDERED: INSULIN ASPART 300 UNITS/3 ML INSULN.PEN SQ ONE (22:30)
[2016-03-25 23:00] VITALS: BP 157/68
[2016-03-26] MEDS: ZOLPIDEM 5 MG TABLET. PO PRN (01:01)
[2016-03-26 07:00] VITALS: BP 104/63
--- NOTE | 2016-03-26 08:17 | DISCH ---
DISCHARGE INSTRUCTIONS Condition on Discharge Condition on Discharge: Stable Activity After Discharge Activity Instructions for Disc: No restrictions Diet after Discharge Diet after Discharge: Diabetic No Calorie Level Follow-Up Follow up with: as scheduled CARLENE SARAH MD Mar 26, 2016 08:17
--- NOTE | 2016-03-26 08:29 | PDOC ---
Provider Note Provider Note [id number] CARLENE SARAH MD Mar 26, 2016 08:29
[2016-03-26] MEDS ORDERED: INSULIN DETEMIR 300 UNITS/3 ML INSULN.PEN. SQ ONE (09:00)
[2016-03-26] MEDS: GABAPENTIN 300 MG CAPSULE. PO SCH (09:00)
[2016-03-26] MEDS: ASPIRIN ENTERIC COATED 81 MG TABLET.DR. PO SCH (09:06)
[2016-03-26] MEDS: CEPHALEXIN 250 MG CAPSULE PO SCH (09:06)
[2016-03-26] MEDS: PANTOPRAZOLE 40 MG TABLET. PO SCH (09:06)
[2016-03-26] MEDS: DULOXETINE HCL 30 MG CAPSULE.DR. PO SCH (09:06)
--- NOTE | 2016-03-26 09:59 | PDOC ---
PROGRESS NOTES Subjective Subjective Pt was in a much better mood today. Pt looked happy and just got done eating breakfast. Pt had no complaints. Pt denied chest pain, SOB, n/v, diaphoresis. Objective Objective Vital Signs Date Time Temp Pulse Resp B/P Pulse Ox O2 Delivery O2 Flow Rate FiO2 03/26/16 07:00 98.8 86 18 104/63 95 Room Air 98.8 Intake and Output 03/26/16 07:00 Intake Total 3049 ml Output Total 2850 ml Balance 199 ml Intake Oral 2135 ml IV Total 914 ml Output Urine Total 2850 ml # Voids 5 Physical Exam Physical Exam No change in cardiac exam Assessment Assessment Problems Medical Problems: (1) Hyperglycemia Status: Acute (2) Hypoglycemia Status: Acute Plan Plan of Care Hyperglycemia Stable from cardiac perspective Comment Review of Relevant I have reviewed the following items sarahy (where applicable) has been applied. Labs Laboratory Tests Test 03/24/16 11:59 03/24/16 16:58 03/24/16 21:27 03/25/16 04:32 Glucose (Fingerstick) 124mg/dL (70-99) 313mg/dL (70-99) 422mg/dL (70-99) White Blood Count 10.9x10^3/uL (4.0-11.0) Red Blood Count 4.39x10^6/uL (3.50-5.40) Hemoglobin 12.0g/dL (12.0-15.5) Hematocrit 36.6% (36.0-47.0) Mean Corpuscular Volume 83fL (79-100) Mean Corpuscular Hemoglobin 27pg (25-35) Mean Corpuscular Hemoglobin Concent 33g/dL (31-37) Red Cell Distribution Width 19.3% (11.5-14.5) Platelet Count 533x10^3/uL (140-400) Sodium Level 140mmol/L (136-145) Potassium Level 4.6mmol/L (3.5-5.1) Chloride Level 101mmol/L (98-107) Carbon Dioxide Level 29mmol/L (21-32) Anion Gap 10 (6-14) Blood Urea Nitrogen 8mg/dL (7-20) Creatinine 1.0mg/dL (0.6-1.0) Estimated GFR (Cockcroft-Gault) 56.7 Glucose Level 139mg/dL (70-99) Calcium Level 9.4mg/dL (8.5-10.1) Test 03/25/16 07:38 03/25/16 11:09 03/25/16 12:40 03/25/16 16:50 Glucose (Fingerstick) 158mg/dL (70-99) 268mg/dL (70-99) 315mg/dL (70-99) Nasal Screen MRSA (PCR) Positive (Negative) Test 03/25/16 21:23 03/26/16 07:37 Glucose (Fingerstick) 374mg/dL (70-99) 132mg/dL (70-99) Laboratory Tests Test 03/25/16 11:09 03/25/16 12:40 03/25/16 16:50 03/25/16 21:23 Glucose (Fingerstick) 268mg/dL (70-99) 315mg/dL (70-99) 374mg/dL (70-99) Nasal Screen MRSA (PCR) Positive (Negative) Test 03/26/16 07:37 Glucose (Fingerstick) 132mg/dL (70-99) Microbiology 03/23/16 Blood Culture - Preliminary, Resulted NO GROWTH AFTER 2 DAYS 03/21/16 Urine Culture - Final, Complete 03/21/16 Urine Culture Result 1 (BUSTER) - Final, Complete Medications Current Medications Sodium Chloride (Iv Sodium Chloride 0.9% 1000ml Bag) 1,000 ml @ 1,000 mls/hr Q1H IV Last administered on 03/21/16 19:01; Start 03/21/16 at 17:38; Stop at 18:37; Status DC Insulin Aspart (Novolog) 0-7 UNITS TIDWMEALS SQ Last administered on 03/22/16 12:26; Start 03/22/16 at 08:00; Stop 03/23/16 at 09:32; Status DC Dextrose 12.5 gm PRN Q15MIN PRN IV SEE COMMENTS Last administered on 03/24/16 08:06; Start 03/21/16 at 21:15 Insulin Aspart (Novolog) 4 units 1X ONCE SQ Last administered on 03/21/16 23: 07; Start 03/21/16 at 23:00; Stop 03/21/16 at 23:01; Status DC Ondansetron HCl 4 mg 4 mg PRN Q8HRS PRN IV NAUSEA/VOMITING; Start 03/21/16 at 23 :15; Stop 03/22/16 at 23:14; Status DC Sodium Chloride (Iv Sodium Chloride 0.9% 1000ml Bag) 1,000 ml @ 125 mls/hr Q8H IV Last administered on 03/22/16 08:43; Start 03/21/16 at 23:15; Stop 03/22/16 at 08:59; Status DC Acetaminophen (Tylenol) 650 mg PRN Q4HRS PRN PO FEVER Last administered on 03/22 15:38; Start 03/21/16 at 23:15; Stop 03/22/16 at 23:14; Status DC Fluconazole (Diflucan) 200 mg DAILY PO Last administered on 03/23/16 10:15; Start 03/22/16 at 09:00; Stop 03/23/16 at 16:53; Status DC Aspirin (Ecotrin) 81 mg DAILY PO Last administered on 03/26/16 09:06; Start at 09:00 Gabapentin (Neurontin) 600 mg TID PO Last administered on 03/22/16 15:37; Start 03/22/16 at 09:00; Stop 03/22/16 at 20:46; Status DC Pantoprazole Sodium (Protonix) 40 mg DAILYAC PO Last administered on 03/26/16 09:06; Start 03/22/16 at 11:30 Duloxetine HCl (Cymbalta) 60 mg DAILY PO Last administered on 03/26/16 09:06; Start 03/22/16 at 09:00 Zolpidem Tartrate (Ambien) 5 mg QHS PO Last administered on 03/25/16 22:12; Start 03/22/16 at 21:00 Zolpidem Tartrate (Ambien) 5 mg PRN QHS PRN PO INSOMNIA Last administered on 01:01; Start 03/22/16 at 09:00 Metformin HCl (Glucophage) 1,000 mg BIDWMEALS PO Last administered on 10:22; Start 03/22/16 at 09:15; Stop 03/23/16 at 13:23; Status DC Insulin Detemir (Levemir) 20 units QHS SQ Last administered on 03/22/16 21:24 ; Start 03/22/16 at 21:00; Stop 03/23/16 at 09:32; Status DC Insulin Detemir 10 units 10 units 1X ONCE SQ Last administered on 03/22/16 12 :27; Start 03/22/16 at 09:30; Stop 03/22/16 at 09:31; Status DC Potassium Chloride/Sodium Chloride (Iv Sodium Chloride 0.45%) 1,015 ml @ 75 mls /hr [id number] IV Last administered on 03/25/16 03:38; Start 03/22/16 at 10:00; Stop 03/25/16 at 08:32; Status DC Doxycycline Hyclate (Vibra-Tab) 100 mg BID PO Last administered on 03/23/16 10 :17; Start 03/22/16 at 19:30; Stop 03/23/16 at 16:53; Status DC Gabapentin (Neurontin) 600 mg TID PO Last administered on 03/25/16 22:12; Start 03/22/16 at 21:00 Insulin Detemir (Levemir) 15 units QHS SQ Last administered on 03/23/16 22:29 ; Start 03/23/16 at 21:00; Stop 03/24/16 at 09:45; Status DC Potassium Chloride (Klor-Con) 20 meq 1X ONCE PO Last administered on 10:22; Start 03/23/16 at 09:30; Stop 03/23/16 at 09:32; Status DC Albuterol/ Ipratropium (Duoneb) 3 ml RTQID NEB ; Start 03/23/16 at 12:00 Oxycodone/ Acetaminophen 1 tab 1 tab PRN Q6HRS PRN PO PAIN Last administered on 03/25/16 22:26; Start 03/23/16 at 13:00 Ceftriaxone Sodium/Sodium Chloride (Rocephin/Iv Sodium Chloride 0.9% 50ml) 50 ml @ 100 mls/hr Q24H IV Last administered on 03/24/16 18:21; Start 03/23/16 at 17:00; Stop 03/25/16 at 08:32; Status DC Insulin Detemir (Levemir) 12 units QHS SQ ; Start 03/24/16 at 21:00; Stop at 21:00; Status DC Iohexol (Omnipaque 300 Mg/ml) 75 ml 1X ONCE IV Last administered on 03/24/16 11:39; Start 03/24/16 at 10:15; Stop 03/24/16 at 10:16; Status DC Iohexol (Omnipaque 240 Mg/ml) 50 ml 1X ONCE PO Last administered on 03/24/16 11:39; Start 03/24/16 at 10:15; Stop 03/24/16 at 10:16; Status DC Info (Do NOT chart on this entry -- for MONITORING) 1 each PRN DAILY PRN MC SEE COMMENTS; Start 03/24/16 at 10:15; Stop 03/26/16 at 10:14 Linagliptin (Tradjenta) 5 mg DAILY PO Last administered on 03/24/16 14:21; Start 03/24/16 at 13:00; Stop 03/25/16 at 08:32; Status DC Glimepiride (Amaryl) 2 mg DAILY PO ; Start 03/25/16 at 09:00; Stop 03/25/16 at 09:00; Status DC Insulin Aspart (Novolog) TIDAC SQ ; Start 03/25/16 at 07:30; Status UNV Insulin Detemir (Levemir) 8 units QHS SQ ; Start 03/25/16 at 21:00; Stop at 21:00; Status DC Insulin Detemir (Levemir) 8 units 1X ONCE SQ Last administered on 03/24/16 22 :50; Start 03/24/16 at 22:45; Stop 03/24/16 at 22:46; Status DC Insulin Aspart (Novolog) 5 units 1X ONCE SQ Last administered on 03/24/16 22: 51; Start 03/24/16 at 22:45; Stop 03/24/16 at 22:46; Status DC Insulin Detemir (Levemir) 10 units QHS SQ Last administered on 03/25/16 22:17 ; Start 03/25/16 at 21:00 Cephalexin HCl (Keflex) 500 mg TID PO Last administered on 03/26/16 09:06; Start 03/25/16 at 09:00 Insulin Aspart (Novolog) 5 units 1X ONCE SQ Last administered on 03/25/16 22: 28; Start 03/25/16 at 22:30; Stop 03/25/16 at 22:35; Status DC Insulin Detemir (Levemir) 10 units 1X ONCE SQ Last administered on 03/26/16 09:14; Start 03/26/16 at 09:00; Stop 03/26/16 at 09:01; Status DC Active Scripts Active Pantoprazole Sodium 40 Mg Tablet. 40 Mg PO DAILYAC 30 Days Cymbalta (Duloxetine Hcl) 60 Mg Capsule. 60 Mg PO DAILY 30 Days Reported Ambien (Zolpidem Tartrate) 10 Mg Tablet 1 Tab PO QHS NICODERM CQ 14mg (Nicotine) 1 Each Patch.td24 1 Patch TP DAILY Meloxicam 15 Mg Tablet 1 Tab PO DAILY Novolog Flexpen (Insulin Aspart) 100 Unit/1 Ml Insuln.pen 5 Unit SQ DAILYWBKFT Pentoxifylline 400 Mg Tablet.er 400 Mg PO BIDWMEALS Oxycodone Hcl 10 Mg Tablet 15 Mg PO Q8HRS PRN Aspir-Low (Aspirin) 81 Mg Tablet. 1 Tab PO DAILY Voltaren (Diclofenac Sodium) 100 Gm Gel..gram. 1 Gm TP QID Lidoderm (Lidocaine) 700 Mg Adh..patch 1 Patch TP DAILY Neurontin (Gabapentin) 100 Mg Capsule 600 Cap PO TID Levemir (Insulin Detemir) 100 Unit/1 Ml Vial 26 Unit SQ HS Vitals/I & O Vital Sign - Last 24 Hours 03/25/16 03/25/16 03/25/16 03/25/16 11:00 15:00 19:00 20:05 Temp 98.2 98.8 98.8 98.2 98.8 98.8 Pulse 94 88 91 Resp 14 16 18 B/P 112/72 166/71 119/74 Pulse Ox 94 98 98 O2 Delivery Room Air Room Air Room Air Room Air 03/25/16 03/25/16 03/25/16 03/26/16 22:26 23:00 23:30 07:00 Temp 97.6 98.8 97.6 98.8 Pulse 89 86 Resp 20 18 20 18 B/P 157/68 104/63 Pulse Ox 98 95 95 95 O2 Delivery Room Air Room Air Room Air Room Air Intake and Output 03/25/16 03/25/16 03/26/16 15:00 23:00 07:00 Intake Total 765 ml 1250 ml 1034 ml Output Total 1500 ml 1350 ml Balance 765 ml -250 ml -316 ml SAUNDRA FORTUNE MD Mar 26, 2016 09:59
--- NOTE | 2016-03-26 20:26 | DS ---
DATE OF DISCHARGE: 03/26/2016 HOSPITAL SUMMARY: A 60-year-old ____ female smoker with chronic back pain, poorly-controlled diabetes, came in because of high blood sugars primarily and generalized weakness. A1c was 9.0. Chemistry profile was unremarkable. Sed rate was high at 117 with normal CBC and although the white count was elevated at 17,400 on admission. Urine was clear. Blood and urine cultures had no growth. There was no fever. The chest x-ray, lumbar spine films and abdominal CT were normal as well. It appeared the source ____ the white count was mildly infected blister on the medial aspect of her left heel, which was treated initially with Rocephin, then with oral cephalexin with improvement. She is feeling better after blood sugars have been better controlled and is comfortable to be followed as an outpatient at this point. FINAL DIAGNOSES: 1. Cellulitis of the left medial heel. 2. Poorly-controlled insulin-dependent diabetes. OPERATIONS, PROCEDURES, COMPLICATIONS: None. CONSULTATIONS: Dr. Mor Bauer, Dr. Conteh. DISPOSITION: She will take 5 more days of Keflex 500 mg 3 times a day for the heel ulcer, which is significantly improved already. Levemir will be at 26 units, a little bit more than the hospital with hopefully better compliance than she has had at home. Rest of home meds remain the same. Diabetic diet. Complete tobacco avoidance was encouraged. Prognosis is guarded because of previous compliance issues. CARLENE SARAH MD DR: BENJI/britta JOB#: [id number] / [id number]
== END 2016-03-26 12:35 | disposition home or self-care (01) | DRG 638 ==
LOC: ER 15:16 → 4 NORTH 21:14
PROVIDERS: ADMIT Family Medicine; ATTEND Family Medicine
DX: E11.65 Type 2 diabetes mellitus with hyperglycemia (principal); L03.116 Cellulitis of left lower limb; L97.429 Non-pressure chronic ulcer of left heel and midfoot with unspecified severity; Z79.4 Long term (current) use of insulin; G47.30 Sleep apnea, unspecified; G89.29 Other chronic pain; M54.9 Dorsalgia, unspecified; I10 Essential (primary) hypertension; I25.10 Atherosclerotic heart disease of native coronary artery without angina pectoris; I73.9 Peripheral vascular disease, unspecified; J44.9 Chronic obstructive pulmonary disease, unspecified; F17.210 Nicotine dependence, cigarettes, uncomplicated; E11.649 Type 2 diabetes mellitus with hypoglycemia without coma; E11.621 Type 2 diabetes mellitus with foot ulcer; M79.7 Fibromyalgia; Z80.0 Family history of malignant neoplasm of digestive organs; Z82.49 Family history of ischemic heart disease and other diseases of the circulatory system; Z86.711 Personal history of pulmonary embolism; Z86.718 Personal history of other venous thrombosis and embolism; Z86.79 Personal history of other diseases of the circulatory system; Z90.49 Acquired absence of other specified parts of digestive tract; Z90.710 Acquired absence of both cervix and uterus; Z79.899 Other long term (current) drug therapy; Z88.5 Allergy status to narcotic agent
CPT/HCPCS: 36415; 71010; 72100; 74177; 80048; 80053; 81001; 82947; 83036; 84484; 85027; 85651; 87040; 87086; 87641; 93005; 96360; 96361; J0696; J1815; J7030; J7042; Q9966; Q9967; 99285-25

== ENCOUNTER → 2016-05-06 | Outpatient (CLI) | payer OTHER ==
--- NOTE | 2016-05-06 23:58 | PAIN ---
DATE OF SERVICE: 05/06/2016 DIAGNOSES: 1. Lumbar radiculopathy, lumbar spondylosis, lumbar degenerative disk disease. 2. Cervical radiculopathy. 3. Myofascial pain. HISTORY OF PRESENT ILLNESS: The patient is a 60-year-old female who returns for followup status post lumbar facet injections as well as medication management with both the oxycodone, Cymbalta and Meloxicam. The patient reports she is doing fairly well with this, about 50% improvement with medications and without side effects, but still significant pain across the low back bilaterally and some radiation to posterior gluteus and thighs and mostly across the low back, worse with activity, standing, walking, bending or flexing, rotating right and left. The patient reports the pain is 7-8 on a scale of 10. It is significantly painful especially with extension of the spine. She started working again after she had been off for a while she was hospitalized for hypoglycemia. This has been in better check now with her diabetes, but significant pain now. 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 The patient reports no new motor or sensory deficits, no new bowel or bladder incontinence or other complaints. PHYSICAL EXAMINATION: VITAL SIGNS: Today, the patient's blood pressure is 94/64, pulse 80, respirations 18, temperature 97.8 degrees Fahrenheit, height is 61 inches, weighs 123 pounds. GENERAL: The patient is awake, alert, oriented, appropriate, very pleasant demeanor. HEENT: Head shows normocephalic, atraumatic. Extraocular movements are intact and symmetrical. Oral cavity, mucous membranes are moist and pink. Dentition is intact. NECK: Shows anterior throat supple without palpable lymphadenopathy noted. Swallow reflex is symmetrical. Posterior cervical musculature is moderately tender with palpation in the low cervical paraspinous musculature as well as superior medial and lateral trapezius, but is symmetrical without radiation or trigger points. CHEST: Shows normal on inspection. Breath sounds are clear to auscultation bilaterally. HEART: Shows S1 and S2 clear. No murmurs auscultated. ABDOMEN: Soft, nontender, nondistended. No palpable organomegaly is noted. No rebound or guarding demonstrated. BACK: Shows spine grossly midline. Lumbar paraspinous muscle shows some moderate tenderness with palpation throughout the upper, middle and lower distribution, mostly in the lower distribution of paraspinous muscles diffusely bilaterally. No tenderness over the spinous processes, sacrum or sacroiliac regions. The patient does show good rotational motion with significant pain reported especially with left lateral rotation and extension. No tenderness with forward flexion at 45 degrees, but right lateral rotation less painful than left lateral rotation at 10 degrees right and left. With 10 degrees extension, significantly tender across the low back bilaterally, but without radiation. EXTREMITIES: Lower extremities showed deep tendon reflexes 1+ in the patellar and tendo calcaneus tendons. Motor exam is strong with 5/5 dorsiflexion, extension, quadriceps and hamstring flexion and symmetrical. Options were discussed with the patient and the patient's old chart was reviewed as her current medication regimen and updated. Current review of systems updated to date as well. We will preauthorize the patient for radiofrequency ablation of the bilateral L3-L4, L4-L5 and L5-S1 levels. She has done very well with this in the past and it has been about a year and a half since she has had this done and the pain is returning significantly. She also benefitted from previous facet blocks as recently as 09/2015 and would like to proceed with radiofrequency as this was more effective for longer period of time. We will preauthorize the patient after return. Plan on bilateral L3-L4, L4-L5 and L5-S1 radiofrequency ablation. Same medications will be refilled oxycodone as well as Cymbalta and Meloxicam and each with instructions, side effects to be aware of discussed. SAIMA MORELOS MD DR: SHALA/britta JOB#: [id number] / [id number]
== END | disposition home or self-care (01) ==
LOC: PNCL 13:30
PROVIDERS: ATTEND Anesthesiology
DX: M51.16 Intervertebral disc disorders with radiculopathy, lumbar region (principal); M47.896 Other spondylosis, lumbar region; M79.1 Myalgia
CPT/HCPCS: 99212

== ENCOUNTER → 2016-05-20 | Outpatient (CLI) | payer OTHER ==
[~2016-05-20] MED LIST changes: +BUPIVACAINE MPF 0.25% 10 ML VIAL. ONE; +LIDOCAINE 1% PF 2 ML VIAL. ONE; +LIDOCAINE 2% PF Vial for OR 5 ML VIAL. ONE; +methylPREDNISolone ACETATE 40 MG/ML VIAL. ONE; +methylPREDNISolone ACETATE 80 MG/ML VIAL. ONE
--- NOTE | 2016-05-21 04:24 | PAIN ---
DATE OF SERVICE: 05/20/2016 PROGRESS NOTE FOR PAIN CLINIC DIAGNOSES: 1. Lumbar radiculopathy, lumbar degenerative disk disease, lumbar spondylosis. 2. Cervical radiculopathy. 3. Myofascial pain. HISTORY OF PRESENT ILLNESS: The patient is a 60-year-old female who returns for follow up after preauthorization and scheduling for radiofrequency ablation of the bilateral L3-L4, L4-L5, and L5-S1 medial branches. The patient still has some significant pain across the low back, occasionally radiating to the lower extremity, more on the right than the left, but more noticeable in the back with the right side worse than left with rotational motion, extension, especially and some with forward flexion, but mostly rotation and extension. The patient reports no new motor or sensory deficits. No new bowel or bladder incontinence or other complaints, but still significant pain with standing, walking, changing positions etc. The patient reports it is radiating, sharp, alternating with dull, cramping, stabbing, burning, constant. The patient reports pain anywhere from a 5 to a 9 on a scale of 10, worse with activity. The patient reports no other complaints at this time. PHYSICAL EXAMINATION: VITAL SIGNS: The patient's blood pressure 85/65, pulse 83, respirations are 18, temperature 98.3 degrees Fahrenheit, height is 61 inches, weight is 129 pounds. GENERAL: The patient is awake, alert, oriented, appropriate, very pleasant demeanor. HEENT: Shows normocephalic, atraumatic. Extraocular movements are intact and symmetrical. Oral cavity, mucous membranes are moist and pink. Dentition is intact. NECK: Shows anterior throat supple without palpable lymphadenopathy. Swallow reflex is symmetrical. CHEST: Shows normal on inspection. Breath sounds are clear to auscultation bilaterally. HEART: Shows S1 and S2 clear. No murmurs auscultated. ABDOMEN: Soft, nontender, nondistended. No palpable organomegaly is noted. No rebound or guarding demonstrated. BACK: Shows spine grossly in midline, some flattening lumbar lordotic curvature noted. Lumbar paraspinous musculature is firm and symmetrical on inspection with palpation is firm and moderately tender to palpation diffusely throughout the upper, middle and lower distribution bilaterally. The patient does show tenderness with rotational motion, mostly to the right greater than 10 degrees, but also some to the left greater than 10 degrees, extension greater than 10 degrees. Reports the pain across the low back bilaterally. Forward flexion has only minimal pain and decreases the pain from extension. EXTREMITIES: Lower extremities showed deep tendon reflexes 1+ in the patellar and tendocalcaneus tendons. Motor exam is strong with 5/5 dorsiflexion, extension, quadriceps and hamstring flexion and equal. Options were discussed with the patient. At this time, the patient's old chart was reviewed as her current medication regimen and updated. Current review of systems updated today as well. We will proceed with bilateral L3-L4, L4-L5 and L5-S1 radiofrequency ablation of medial branches at those levels with fluoroscopic guidance. Risks were again discussed including, but not limited to bleeding, infection, possibility of epidural hematoma, subsequent neurologic compromise, dural punctures, headaches, spinal cord and/or nerve damage, side effects of steroid medication, poor results regarding pain control, exposure to fluoroscopy, potential damage with thermal ablation to surrounding tissues including motor nerves with possible ischemic ____ and permanent damage as well as poor results regarding pain control. The patient understands and wishes to proceed. The patient will return to clinic in approximately 2 weeks for followup, was counseled on return appointment, activity level, and side effects to be aware of. DIAGNOSIS: Lumbar spondylosis bilaterally. DESCRIPTION OF PROCEDURE: Radiofrequency ablation bilateral L3-L4, L4-L5 and L5-S1 median branches with C-arm fluoroscopic guidance under sterile prep and drape using local anesthetic. Medication injected is total of 120 mg Depo-Medrol plus total of 8 mL 0.25% bupivacaine, a total of 8 mL of 2% lidocaine prior to radiofrequency ablation, but after motor testing at each level and each medial branch. CONDITION AT DISCHARGE: Stable. The patient tolerated procedure well, had no complications. SAIMA MORELOS MD DR: SHALA/britta JOB#: [id number] / [id number]
== END | disposition home or self-care (01) ==
LOC: PNCL 13:07
PROVIDERS: ATTEND Anesthesiology
DX: M51.16 Intervertebral disc disorders with radiculopathy, lumbar region (principal); M47.26 Other spondylosis with radiculopathy, lumbar region; I10 Essential (primary) hypertension; Z90.49 Acquired absence of other specified parts of digestive tract; E11.9 Type 2 diabetes mellitus without complications; F41.9 Anxiety disorder, unspecified
CPT/HCPCS: 64635; 64636; J1030; J1040; J3490

== ENCOUNTER → 2016-06-17 | Outpatient (CLI) | payer OTHER ==
[~2016-06-17] MED LIST changes: -BUPIVACAINE MPF 0.25% 10 ML VIAL. ONE; -LIDOCAINE 1% PF 2 ML VIAL. ONE; -LIDOCAINE 2% PF Vial for OR 5 ML VIAL. ONE; -methylPREDNISolone ACETATE 40 MG/ML VIAL. ONE; -methylPREDNISolone ACETATE 80 MG/ML VIAL. ONE
--- NOTE | 2016-06-17 13:21 | PAIN ---
DATE OF SERVICE: 06/17/2016 PROGRESS NOTE FOR PAIN CLINIC DIAGNOSES: 1. Lumbar radiculopathy with lumbar degenerative disk disease and lumbar spondylosis. 2. Cervical radiculopathy. 3. Myofascial pain. HISTORY OF PRESENT ILLNESS: This is a 60-year-old female, who presents with history of pain in the low back, status post bilateral lumbar facet medium branch block radiofrequency ablation on 05/20/2016. The patient reports she did well, about 40% improvement overall, still has some pain in the mid and upper back, the sharp, tight shooting, cramping, stabbing, severe, constant, radiating qualities has off and on rates as 6-8 on a scale 10 currently, it is 6 today, but otherwise doing fairly well. 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 The patient reports no new motor or sensory deficits, no new bowel or bladder incontinence or other complaints. The patient's old chart was reviewed as her current medication regimen updated. PHYSICAL EXAMINATION: VITAL SIGNS: The patient's blood pressure is 81/59, pulse 83, respirations are 17, temperature 98.6 degrees Fahrenheit, weight is 117 pounds, height is 5 feet 1 inch. GENERAL: The patient is awake, alert, oriented, appropriate, very pleasant demeanor. HEENT: Head shows normocephalic, atraumatic. Extraocular movements are intact, symmetrical. Oral cavity, mucous membranes are moist and pink. Dentition is intact. NECK: Shows anterior throat supple without palpable lymphadenopathy noted. Swallow reflex is symmetrical. CHEST: Shows normal on inspection. Breath sounds are clear to auscultation bilaterally. HEART: Shows S1 and S2 clear. ABDOMEN: Soft, nontender, nondistended. No palpable organomegaly. No rebound or guarding demonstrated. BACK: Shows spine grossly midline. Lumbar paraspinous muscle shows some mild tenderness with palpation, but only diffusely without radiation bilaterally. EXTREMITIES: Lower extremities show deep tendon reflexes at 1+ in the patellar and tendo calcaneus tendons. Motor exam is strong with 5/5 dorsiflexion, extension, quadriceps and hamstring flexion and are symmetrical as well. Options were discussed with the patient and the patient's old chart was reviewed as her current medication regimen updated. Current review of systems updated today as well. We will proceed with refill on the patient's oxycodone 15 mg and the patient does well this with about 60% improvement overall without side effects. She is only using 1-2 a day on average, but sometimes up to 3-4. We will have discovered for the next month with prescription as well as instructions, side effects to be aware of discussed with the medication. The patient will follow up in approximately 1 month as scheduled or sooner if necessary. SAIMA MORELOS MD DR: SHALA/britta JOB#: [id number] / [id number]
== END | disposition home or self-care (01) ==
LOC: PNCL 10:31
PROVIDERS: ATTEND Anesthesiology
DX: M51.16 Intervertebral disc disorders with radiculopathy, lumbar region (principal); M47.896 Other spondylosis, lumbar region; M79.1 Myalgia
CPT/HCPCS: 99212

== ENCOUNTER 2016-07-25 12:03 | Inpatient (IN) | payer OTHER ==
[~2016-07-25] VITALS: Ht 157.5 cm; Wt 59.1 kg
[~2016-07-25 12:03] MED LIST changes: -CRAN200C PO; +CRAN200C2 PO; +DICL100G18 TP; -DICL100G7 TP; -MELO-150 PO; +MELO15TA23 PO; -OXYC-244 PO; -OXYC-250 PO; +OXYC-327 PO; +OXYC-328 PO
[2016-07-25] MEDS ORDERED: IV DEXTROSE 5 %-0.45 % NACL 1,000 ML IV ONE (12:15)
--- NOTE | 2016-07-25 12:36 | ED.ADGEN ---
Past Medical History Past Medical History: Diabetes-Type II, Hypertension Past Surgical History: Appendectomy, Cholecystectomy, Hysterectomy, Other Additional Past Surgical Histo: ectopic pregnancies x2, pulmonary embolism, ABD aortic bypass w bifurcation Alcohol Use: None Drug Use: None Adult General Chief Complaint Chief Complaint: HYPOGLYCEMIA HPI HPI Patient is a 60 year old insulin-dependent diabetic who presents with altered mental status and hypoglycemia. She. Patient cold, unresponsive on EMS arrival. Blood sugar 11. 1 amp of D50 given. Patient alert and oriented to person but confused to events and year. She does not have any focal neurologic complaints and is able to follow commands. Patient is unable to recall what medication she is on and when she last took her medications. Patient denies pain, fall or injury. Denies overdose or attempt. Patient has history of poorly controlled diabetes with hypo-and hyperglycemic events. History is limited by the patient' s clinical condition. Patient arrived by EMS. Review of Systems Review of Systems Review symptoms as per history of present illness. Current Medications Current Medications Current Medications Medications (Trade) Dose Ordered Sig/Jo Start Time Stop Time Status Last Admin Dose Admin Dextrose (Dextrose 50%-Water Syringe) 25 gm 1X ONCE 07/25/16 13:00 07/25/16 13:03 DC 07/25/16 13:08 25 GM Dextrose/Sodium Chloride 1,000 ml @ 200 mls/hr 1X ONCE 07/25/16 12:15 07/25/16 17:14 07/25/16 12:40 200 MLS/HR Allergies Allergies Allergies Coded Allergies Type Severity Reaction Last Updated Verified I S O L A T I O N *CONTACT* Allergy Unknown 03/26/16 Yes hydrocodone Adverse Reaction Intermediate LOOPY 03/11/15 Yes Physical Exam Physical Exam Constitutional: Well developed, well nourished, no acute distress, non-toxic appearance. HENT: Normocephalic, atraumatic, bilateral external ears normal, oropharynx moist, no oral exudates, nose normal. Eyes: PERRLA, EOMI, conjunctiva normal, no discharge. Neck: Normal range of motion, no tenderness, supple, no stridor. Cardiovascular:Heart rate regular rhythm, no murmur Lungs & Thorax: Bilateral breath sounds clear to auscultation Abdomen: Bowel sounds normal, soft, no tenderness. Skin: Warm, dry. Back: No tenderness. Extremities: No tenderness. Neurologic: Alert and oriented X 1, normal motor function, normal sensory function, no focal deficits noted. Psychologic: Affect normal, judgement normal, mood normal. Current Patient Data Vital Signs Vital Signs Date Time Temp Pulse Resp B/P (MAP) Pulse Ox O2 Delivery O2 Flow Rate FiO2 07/25/16 12:06 85 20 115/90 (98) 96 Lab Values Laboratory Tests Test 07/25/16 12:15 07/25/16 12:40 07/25/16 12:58 Glucose (Fingerstick) 84 mg/dL (70-99) 55 mg/dL (70-99) L Sodium Level 140 mmol/L (136-145) Potassium Level 3.5 mmol/L (3.5-5.1) Chloride Level 100 mmol/L (98-107) Carbon Dioxide Level 30 mmol/L (21-32) Anion Gap 10 (6-14) Blood Urea Nitrogen 11 mg/dL (7-20) Creatinine 1.0 mg/dL (0.6-1.0) Estimated GFR (Cockcroft-Gault) 56.7 BUN/Creatinine Ratio 11 (6-20) Glucose Level 53 mg/dL (70-99) L Calcium Level 8.9 mg/dL (8.5-10.1) Total Bilirubin 0.5 mg/dL (0.2-1.0) Aspartate Amino Transferase (AST) 82 U/L (15-37) H Alanine Aminotransferase (ALT) 25 U/L (14-59) Alkaline Phosphatase 134 U/L (46-116) H Total Protein 9.1 g/dL (6.4-8.2) H Albumin 3.3 g/dL (3.4-5.0) L Albumin/Globulin Ratio 0.6 (1.0-1.7) L Acetaminophen Level < 2 mcg/ml (10-30) L Acetaminophen Last Dose Date Unknown Acetaminophen Last Dose Time Unknown Laboratory Tests 07/25/16 12:40 EKG EKG [] Radiology/Procedures Radiology/Procedures [] Course & Med Decision Making Course & Med Decision Making Pertinent Labs and Imaging studies reviewed. (See chart for details) [Patient mental status changes secondary to refractory hypoglycemia. She requiring D5 drip and repeat in doses of D50 acquired to maintain blood sugar greater than 50. Patient is hypothermic, drowsy with decreased appetite or willingness to eat carbs while in the emergency department. We'll continue supplemental glucose 3 IV and admitted to patient's PCP Dr. Valdez. ] Dragon Disclaimer Dragon Disclaimer This electronic medical record was generated, in whole or in part, using a voice recognition dictation system. GEMINI LOPEZ DO Jul 25, 2016 12:36
[2016-07-25] MEDS ORDERED: DEXTROSE 50% 25 GM / 50ML DISP.SYRIN. IV ONE ×2 (13:00→14:15)
[2016-07-25 13:12] LABS: CALCIUM 8.9 mg/dL (8.5-10.1); GFR 56.7; POTASSIUM 3.5 mmol/L (3.5-5.1)
[2016-07-25 13:26] LABS: ALBUMIN 3.3 g/dL (3.4-5.0); ALBUMIN/GLOBULIN RATIO 0.6 (1.0-1.7); TOTAL BILIRUBIN 0.5 mg/dL (0.2-1.0); TOTAL PROTEIN 9.1 g/dL (6.4-8.2)
[2016-07-25] MEDS ORDERED: ONDANSETRON PF 4 MG/2 ML VIAL. IV PRN (15:00)
[2016-07-25 15:02] LABS: BASO # 0.1 x10^3/uL (0.0-0.2); BASO % 1 % (0-3); EOS % 0 % (0-3); HEMATOCRIT 36.8 % (36.0-47.0); HEMOGLOBIN 11.7 g/dL (12.0-15.5); LYMPH # 1.1 x10^3/uL (1.0-4.8); LYMPH % 8 % (24-48); MEAN CORPUSCULAR HEMOGLOBIN 29 pg (25-35); MEAN CORPUSCULAR HGB CONC 32 g/dL (31-37); MEAN CORPUSCULAR VOLUME 90 fL (79-100); MONO % 6 % (0-9); NEUT % 85 % (31-73); PLATELET COUNT 353 x10^3/uL (140-400); RED BLOOD COUNT 4.11 x10^6/uL (3.50-5.40); RED CELL DISTRIBUTION WIDTH 15.8 % (11.5-14.5); WHITE BLOOD COUNT 13.3 x10^3/uL (4.0-11.0)
[2016-07-25 15:53] LABS: BILIRUBIN,URINE NEGATIVE (NEG); GLUCOSE,URINE 250 mg/dL (NEG); NITRITE,URINE NEGATIVE (NEG); PROTEIN,URINE 100 mg/dL (NEG-TRACE)
[2016-07-25 15:59] LABS: BACTERIA,URINE FEW /HPF (0-FEW); RBC,URINE 0 /HPF (0-2); SQUAMOUS EPITHELIAL CELL,UR OCC /LPF
[2016-07-25 16:00] LABS: BARBITURATES NEG (NEG); BENZODIAZEPINES NEG (NEG); CANNABINOIDS NEG (NEG); COCAINE NEG (NEG); METHADONE NEG (NEG); OPIATES POS (NEG); PHENCYCLIDINE NEG (NEG)
[2016-07-25 19:00] VITALS: BP 133/79
[2016-07-25] MEDS ORDERED: GABA600T2 PO (19:15)
[2016-07-25] MEDS ORDERED: ZOLPIDEM 5 MG TABLET. PO PRN (19:30)
[2016-07-25] MEDS: POTASSIUM CL 20MEQ D5-0.45NACL 1,000 ML IV SCH (20:17)
[2016-07-25] MEDS: GABAPENTIN 300 MG CAPSULE. PO SCH (20:18)
[2016-07-25] MEDS: ZOLPIDEM 5 MG TABLET. PO SCH (20:18)
[2016-07-25] MEDS: NICOTINE 14MG PATCH. TD SCH (20:19)
[2016-07-25] MEDS: DICLOFENAC SODIUM 1% TOPICAL GEL 100GM TUBE. TP SCH (20:20)
[2016-07-25] MEDS ORDERED: oxyCODONE IR 5 MG TABLET PO PRN (21:00)
[2016-07-25 23:00] VITALS: BP 87/60
[2016-07-26 03:00] VITALS: BP 117/91
[2016-07-26 06:37] LABS: BASO # 0.1 x10^3/uL (0.0-0.2); BASO % 1 % (0-3); EOS % 1 % (0-3); HEMOGLOBIN 11.5 g/dL (12.0-15.5); LYMPH # 1.4 x10^3/uL (1.0-4.8); LYMPH % 14 % (24-48); MEAN CORPUSCULAR HEMOGLOBIN 29 pg (25-35); MEAN CORPUSCULAR HGB CONC 34 g/dL (31-37); MEAN CORPUSCULAR VOLUME 87 fL (79-100); MONO % 7 % (0-9); NEUT % 78 % (31-73); PLATELET COUNT 381 x10^3/uL (140-400); RED BLOOD COUNT 3.93 x10^6/uL (3.50-5.40); RED CELL DISTRIBUTION WIDTH 15.4 % (11.5-14.5); WHITE BLOOD COUNT 10.3 x10^3/uL (4.0-11.0)
[2016-07-26 06:52] LABS: CALCIUM 8.3 mg/dL (8.5-10.1); CREATININE 0.9 mg/dL (0.6-1.0); GFR 64.1; POTASSIUM 4.8 mmol/L (3.5-5.1)
[2016-07-26 07:00] VITALS: BP 116/78
[2016-07-26] MEDS: PANTOPRAZOLE 40 MG TABLET.DR. PO SCH (07:54)
[2016-07-26] MEDS: NICOTINE 14MG PATCH. TD SCH (07:55)
[2016-07-26] MEDS: ASPIRIN ENTERIC COATED 81 MG TABLET.DR. PO SCH (07:55)
[2016-07-26] MEDS: DULoxetine HCL 30 MG CAPSULE.DR PO SCH (07:55)
[2016-07-26] MEDS: MELOXICAM 7.5 MG TABLET PO SCH (07:55)
[2016-07-26] MEDS: GABAPENTIN 300 MG CAPSULE. PO SCH ×3 (07:55→21:17)
[2016-07-26] MEDS: DICLOFENAC SODIUM 1% TOPICAL GEL 100GM TUBE. TP SCH ×4 (07:56→21:17)
--- NOTE | 2016-07-26 08:58 | ACF ---
Admission Forms Criteria DIABETES, HYPOGLYCEMIA Clinical Indications for Admission to Inpatient Care (Place 'X' for any and all applicable criteria): Admission is indicated for ALL of the following (1)(2)(3)(4)(5): [X]I. Suspected or documented hypoglycemia (plasma glucose less than 50 mg/dL (2.78 mmol/L)) with severe clinical manifestations or issues as indicated by ANY ONE of the following: [X]a) Altered mental status (eg, coma, confusion) [ ]b) Seizure [ ]c) Ataxia [ ]d) Dysphasia [ ]e) Focal neurologic deficit(6) [ ]f) Severe weakness or fatigue [ ]g) Significant clinical signs or symptoms that do not resolve with treatment [ ]h) Hypoglycemia induced by ANY ONE of the following(7)(8)(9): [ ]i) Sulfonylurea(10) [ ]ii) Long-acting insulin (eg, half-life more than 6 hours ) (11) [X]II. Management at other levels of care (See General Criteria: Observation Care) is not feasible because of ANY ONE of the following: [X]a) Condition was not adequately corrected with treatment at other levels of care. [ ]b) Treatment at other levels of care is not appropriate because of condition severity (eg, coma). Extended stay beyond goal length of stay may be needed for(3)(12)(19): [ ]a) Long acting sulfonylurea-inducing hypoglycemia (10) [ ]b) Presentation in coma [ ]c) Identified etiology of hypoglycemia requires ongoing care (eg, infection ) [ ]d) Neurologic deficit [ ]e) Active serious comorbidities (eg, renal failure, heart failure) The original [employer] content created by [employer] has been revised. The portions of the content which have been revised are identified through the use of italic text or in bold, and [facility] has neither reviewed nor approved the modified material.All other unmodified content is copyright [employer] [facility] [employer]. Please see references footnoted in the original [employer] [facility] [employer] edition 2016 Admission Criteria Met?: Yes TASH GUTIERREZ Jul 26, 2016 08:58
[2016-07-26] MEDS: PENTOXIFYLLINE ER 400 MG TABLET.ER. PO SCH ×2 (09:33→17:04)
[2016-07-26] MEDS: POTASSIUM CL 20MEQ D5-0.45NACL 1,000 ML IV SCH ×2 (10:33→21:21)
[2016-07-26] MEDS: IV 1/2 NORMAL SALINE 1,000 ML IV SCH (10:55)
[2016-07-26 11:00] VITALS: BP 103/64
[2016-07-26] MEDS ORDERED: DEXTROSE 50% 25 GM / 50ML DISP.SYRIN. IV PRN (11:00)
[2016-07-26] MEDS: INSULIN ASPART 300 UNITS/3 ML INSULN.PEN SQ SCH ×2 (12:01→17:10)
--- NOTE | 2016-07-26 15:24 | PDOC ---
OBJECTIVE Vital Signs Vital Signs Date Time Temp Pulse Resp B/P (MAP) Pulse Ox O2 Delivery O2 Flow Rate FiO2 07/26/16 11:00 100.2 85 16 103/64 (77) 86 Room Air 100.2 07/26/16 07:45 Room Air 07/26/16 07:00 98.8 91 18 116/78 (91) 90 Room Air 98.8 07/26/16 03:00 99.7 88 20 117/91 (100) 99 Room Air 99.7 07/25/16 23:00 99.0 85 20 87/60 (69) 91 Room Air 99.0 07/25/16 21:19 Room Air 07/25/16 20:19 Room Air 07/25/16 20:00 Room Air 07/25/16 19:00 99.5 88 20 133/79 (97) 93 Room Air 99.5 07/25/16 17:56 Room Air I & O Intake and Output 07/26/16 07:00 Intake Total 1000 ml Output Total 1 ml Balance 999 ml IV Total 1000 ml Output Urine Total 1 ml # Voids 3 ASSESSMENT/PLAN Assessment/Plan 464389 H&P dictated Problems: COMMENT Lab Laboratory Tests Test 07/25/16 15:35 07/25/16 15:42 07/25/16 16:36 07/25/16 17:35 Urine Color Yellow Urine Clarity Clear Urine pH 6.0 Urine Specific [place] 1.010 Urine Protein 100 mg/dL (NEG-TRACE) Urine Glucose (UA) 250 mg/dL (NEG) Urine Ketones (Stick) Negative mg/dL (NEG) Urine Blood Negative (NEG) Urine Nitrite Negative (NEG) Urine Bilirubin Negative (NEG) Urine Urobilinogen Dipstick 1.0 mg/dL (0.2 mg/dL) Urine Leukocyte Esterase Trace (NEG) Urine RBC 0 /HPF (0-2) Urine WBC 1-4 /HPF (0-4) Urine Squamous Epithelial Cells Occ /LPF Urine Bacteria Few /HPF (0-FEW) Urine Opiates Screen Pos (NEG) Urine Methadone Screen Neg (NEG) Urine Barbiturates Neg (NEG) Urine Phencyclidine Screen Neg (NEG) Urine Amphetamine/Methamphetamine Neg (NEG) Urine Benzodiazepines Screen Neg (NEG) Urine Cocaine Screen Neg (NEG) Urine Cannabinoids Screen Neg (NEG) Urine Ethyl Alcohol Neg (NEG) Glucose (Fingerstick) 266 mg/dL (70-99) 224 mg/dL (70-99) 223 mg/dL (70-99) Test 07/25/16 20:33 07/25/16 21:00 07/25/16 22:21 07/26/16 01:06 Glucose (Fingerstick) 168 mg/dL (70-99) 226 mg/dL (70-99) 239 mg/dL (70-99) Nasal Screen MRSA (PCR) Negative (Negative) Test 07/26/16 03:56 07/26/16 05:45 07/26/16 07:17 07/26/16 10:31 Glucose (Fingerstick) 216 mg/dL (70-99) 372 mg/dL (70-99) 389 mg/dL (70-99) White Blood Count 10.3 x10^3/uL (4.0-11.0) Red Blood Count 3.93 x10^6/uL (3.50-5.40) Hemoglobin 11.5 g/dL (12.0-15.5) Hematocrit 34.0 % (36.0-47.0) Mean Corpuscular Volume 87 fL (79-100) Mean Corpuscular Hemoglobin 29 pg (25-35) Mean Corpuscular Hemoglobin Concent 34 g/dL (31-37) Red Cell Distribution Width 15.4 % (11.5-14.5) Platelet Count 381 x10^3/uL (140-400) Neutrophils (%) (Auto) 78 % (31-73) Lymphocytes (%) (Auto) 14 % (24-48) Monocytes (%) (Auto) 7 % (0-9) Eosinophils (%) (Auto) 1 % (0-3) Basophils (%) (Auto) 1 % (0-3) Neutrophils # (Auto) 8.0 x10^3uL (1.8-7.7) Lymphocytes # (Auto) 1.4 x10^3/uL (1.0-4.8) Monocytes # (Auto) 0.7 x10^3/uL (0.0-1.1) Eosinophils # (Auto) 0.1 x10^3/uL (0.0-0.7) Basophils # (Auto) 0.1 x10^3/uL (0.0-0.2) Sodium Level 131 mmol/L (136-145) Potassium Level 4.8 mmol/L (3.5-5.1) Chloride Level 97 mmol/L (98-107) Carbon Dioxide Level 26 mmol/L (21-32) Anion Gap 8 (6-14) Blood Urea Nitrogen 11 mg/dL (7-20) Creatinine 0.9 mg/dL (0.6-1.0) Estimated GFR (Cockcroft-Gault) 64.1 Glucose Level 331 mg/dL (70-99) Calcium Level 8.3 mg/dL (8.5-10.1) Test 07/26/16 11:50 Glucose (Fingerstick) 379 mg/dL (70-99) JOSH GANT MD Jul 26, 2016 15:24
[2016-07-26] MEDS: oxyCODONE/APAP 5/325 1 TAB TABLET PO PRN (15:36)
--- NOTE | 2016-07-26 16:00 | PREOP HP ---
DATE OF SERVICE: 07/25/2016 HISTORY OF PRESENT ILLNESS: The patient is in room #502. She is a 60-year-old lady who presented to the Emergency Room, brought by ambulance due to severe hypoglycemia. Her blood sugar at the time she was picked up was only at 11. She was treated for that on the way to the Emergency Room and still had low blood sugar in the Emergency Room. She was admitted for further treatment. She is very brittle diabetic to begin with, and she has recently been losing weight, and I had advised her to cut down on her Levemir to 30 units at night. She stated that she continues to have some low blood sugars and when she went to bed at night it was 192. However, she was found the next morning obtunded with a very low blood sugar. She has been having some other medical problems with right pleural effusion and low-grade temperature, hot flashes, and feeling fatigued and weak along with weight loss. Recently, I had seen her in the office, and her sedimentation rate was high. I sent her for an echocardiogram and CT of the chest for evaluation of the right pleural effusion. We will recheck her chest x-ray on this admission. PAST MEDICAL HISTORY: Significant for coronary artery disease, and she does have a history of abdominal aortic aneurysm repair, peripheral vascular disease, aortofemoropopliteal bypass surgery with stents, previous history of hypertension, pulmonary embolus, sleep apnea, history of cholecystectomy, osteoarthritis, degenerative disk disease, and back pain. She is diabetic, insulin requiring. SOCIAL HISTORY: She is a smoker, does not drink alcohol regularly or use any other drugs. FAMILY HISTORY: Positive for liver cancer. REVIEW OF SYSTEMS: As I mentioned is positive for low-grade temperature on and off and hot flashes. She also has lost weight, and she feels fatigued in general. HEENT: Denies sore throat or congestion. PULMONARY: Denies shortness of breath. She does have mild chronic cough due to smoking. CARDIAC: Denies chest pain. She does have some swelling in the lower extremities on and off. Most recently, she had a swelling after traveling to [place] for 3-4 hours in the car. GASTROINTESTINAL: Denies abdominal pain. She does have poor appetite, some nausea, and diarrhea on and off. GENITOURINARY: She does have stress incontinence. MUSCULOSKELETAL: She does have back pain and osteoarthritis. NEUROLOGIC: She denies any focal deficit. PHYSICIAL EXAMINATION: GENERAL: She is alert and oriented, in no acute distress at the time I saw her, cooperative. HEENT: Tympanic membranes are clear. Pharynx clear. Mucous membranes are slightly dry. NECK: Supple, no JVD, bruit, or cervical adenopathy. HEART: Regular rate and rhythm. ABDOMEN: Soft and nontender, no organomegaly, no masses, no bruits, no ascites. LUNGS: With decreased breath sounds on the right base. EXTREMITIES: She does not have edema at the present time. No clubbing or cyanosis. NEUROLOGIC: She moves all her extremities. She has no focal deficit. PSYCHOLOGIC: She does have a depressed affect. IMPRESSION: 1. Hypoglycemia and recent weight loss. The patient is admitted. We will hold insulin and continue with D5W. She has been treated for low blood sugar. 2. Low-grade temperature, not sure of the source. She does have a right pleural effusion. We will ask Infectious Disease to see her. Repeat chest x-ray, obtain echocardiogram, and consider CT scan of chest. 3. Elevated sedimentation rate. 4. Weight loss. 5. Diabetes mellitus type 2, insulin requiring. 6. Coronary artery disease. 7. Peripheral vascular disease, rather severe for her age. 8. Osteoarthritis. JOSH GANT MD DR: PHILL/britta JOB#: [id number] / [id number]
--- NOTE | 2016-07-26 16:06 | CARD ---
APPROVED REPORT EXAM: Two-dimensional and M-mode echocardiogram with Doppler and color Doppler. Other Information Quality : Good INDICATION Pleural Effusion 2D DIMENSIONS RVDd2.9 (2.9-3.5cm)Left Atrium(2D)3.7 (1.6-4.0cm) IVSd1.1 (0.7-1.1cm)Aortic Root(2D)2.3 (2.0-3.7cm) LVDd4.1 (3.9-5.9cm)LVOT Diameter1.8 (1.8-2.4cm) PWd1.2 (0.7-1.1cm)LVDs3.2 (2.5-4.0cm) FS (%) 15.0 %SV31.0 ml LVEF(%)25.0 (>50%) M-Mode DIMENSIONS Aortic Cusp Exc0.97 (1.5-2.0cm) Aortic Valve AoV Peak Benton.307.0cm/sAoV VTI41.2cm AO Peak GR.38.0mmHgLVOT Peak Benton.57.7cm/s LVOT VTI 10.95cmAO Mean GR.20mmHg GLENN (VMAX)0.94uh0AFB (VTI)0.44cm2 Mitral Valve MV E Cewzjpwj947.1cm/sMV DECEL SGCV800fo MV A Xozypdkx87.5cm/sMV ITF11al E/A Ratio1.5MVA (PHT)4.54cm2 TDI E/Medial E'40.4 Tricuspid Valve TR P. Jrkjkkgl712sf/sRAP MZWZUSGE4yiPr TR Peak Gr.40plSgXPGV64mkWf Pulmonary Vein S1 Brufxwvk40.7cm/sD2 Ofpnjhku50.8cm/s PVa [id number] LEFT VENTRICLE The left ventricle is normal size. There is mild concentric left ventricular hypertrophy. Left ventri ameya systolic function is moderate to severely impaired. The Ejection Fraction is 25%. There is global hypokinesis of the left ventricle. Transmitral Doppler flow pattern is restrictive diastolic dysfunc tion. RIGHT VENTRICLE The right ventricle is normal size. The right ventricular systolic function is moderately decreased ATRIA The left atrium size is normal. The right atrium size is normal. The interatrial septum is intact wit h no evidence for an atrial septal defect or patent foramen ovale as noted on 2-D or Doppler imaging. AORTIC VALVE The aortic valve is calcified and displays decreased opening. There is partial fusion of 2 of the cus ps with a lot of calcifications Doppler and Color Flow revealed trace aortic regurgitation. Calculate d aortic valve area is 0.44 cm2 with maximum pressure gradient of 38 mmHg and mean pressure gradient of 20 mmHg. Doppler and color-flow analysis revealed aortic stenosis. MITRAL VALVE The mitral valve is calcified but opens well. There is no evidence of mitral valve prolapse. There is no mitral valve stenosis. Doppler and Color-flow revealed trace mitral regurgitation. TRICUSPID VALVE The tricuspid valve is normal in structure Doppler and Color Flow revealed mild tricuspid regurgitati on. There is moderate pulmonary hypertension. The PA pressure was estimated at 42 mmHg. There is no t ricuspid valve stenosis. PULMONIC VALVE The pulmonary valve is normal in structure Doppler and Color Flow revealed severe pulmonic valvular r egurgitation. There is no pulmonic valvular stenosis. GREAT VESSELS The aortic root is normal in size. The ascending aorta is normal in size. The IVC is dilated and spring apses >50% with inspiration. PERICARDIAL EFFUSION There is a small circumferential pericardial effusion. Critical Notification Critical Value: No <Conclusion> Left ventricle systolic function is moderate to severely impaired. The Ejection Fraction is 25%. Transmitral Doppler flow pattern is restrictive diastolic dysfunction. There is mild concentric left ventricular hypertrophy. The right ventricular systolic function is moderately decreased The left atrium size is normal. The right atrium size is normal. Calculated aortic valve area is 0.44 cm2 with maximum pressure gradient of 38 mmHg and mean pressure gradient of 20 mmHg. Doppler and color-flow analysis revealed aortic stenosis. The aortic valve is calcified and displays decreased opening. There is partial fusion of 2 of the cus ps with a lot of calcifications Doppler and Color Flow revealed trace aortic regurgitation. Calculated aortic valve area is 0.44 cm2 with maximum pressure gradient of 38 mmHg and mean pressure gradient of 20 mmHg. Doppler and color-flow analysis revealed aortic stenosis. Doppler and Color-flow revealed trace mitral regurgitation. The mitral valve is calcified but opens well. Doppler and Color Flow revealed mild tricuspid regurgitation. There is moderate pulmonary hypertension. The PA pressure was estimated at 42 mmHg. Doppler and Color Flow revealed severe pulmonic valvular regurgitation. There is a small circumferential pericardial effusion.
--- NOTE | 2016-07-26 16:42 | RAD ---
Chest, 2 views, 07/26/2016: History: Right pleural effusion Comparison is made to a study from 07/09/2016. The right pleural effusion has increased markedly in size. There is now a moderate amount of zidjd-rrpwr-yqgvc pleural fluid as well as a small amount of left-sided pleural fluid. There is moderate underlying basilar atelectasis/infiltrate, right greater than left. The pulmonary vascularity appears congested. The right cardiac margin is obscured by the pleural fluid. The heart appears to be at the upper limits of normal in size. There is moderate spurring in the spine. There is mild unchanged loss of height of several vertebral bodies. IMPRESSION: Worsening right pleural effusion and interval development of a small left pleural effusion with moderate bibasilar infiltrates, most likely due to congestive heart failure.
[2016-07-26 19:56] VITALS: BP 139/74
[2016-07-26] MEDS ORDERED: INSULIN DETEMIR 300 UNITS/3 ML INSULN.PEN. SQ SCH (21:00)
[2016-07-26] MEDS: ZOLPIDEM 5 MG TABLET. PO SCH (21:18)
[2016-07-26 23:41] VITALS: BP 113/75
[2016-07-27] MEDS: IV 1/2 NORMAL SALINE 1,000 ML IV SCH ×2 (00:20→09:34)
[2016-07-27 03:39] VITALS: BP 104/69
[2016-07-27 05:44] LABS: HEMATOCRIT 34.1 % (36.0-47.0); HEMOGLOBIN 11.5 g/dL (12.0-15.5); RED BLOOD COUNT 3.94 x10^6/uL (3.50-5.40); RED CELL DISTRIBUTION WIDTH 15.6 % (11.5-14.5); WHITE BLOOD COUNT 9.3 x10^3/uL (4.0-11.0)
[2016-07-27 06:26] LABS: CALCIUM 8.6 mg/dL (8.5-10.1); CREATININE 0.9 mg/dL (0.6-1.0); GFR 64.1; POTASSIUM 4.3 mmol/L (3.5-5.1)
[2016-07-27 07:00] VITALS: BP 111/74
[2016-07-27] MEDS: PANTOPRAZOLE 40 MG TABLET.DR. PO SCH (08:26)
[2016-07-27] MEDS: PENTOXIFYLLINE ER 400 MG TABLET.ER. PO SCH ×2 (08:26→17:07)
[2016-07-27] MEDS: ASPIRIN ENTERIC COATED 81 MG TABLET.DR. PO SCH (08:27)
[2016-07-27] MEDS: DULoxetine HCL 30 MG CAPSULE.DR PO SCH (08:27)
[2016-07-27] MEDS: MELOXICAM 7.5 MG TABLET PO SCH (08:28)
[2016-07-27] MEDS: GABAPENTIN 300 MG CAPSULE. PO SCH ×3 (08:30→22:36)
[2016-07-27] MEDS: INSULIN ASPART 300 UNITS/3 ML INSULN.PEN SQ SCH ×4 (08:30→17:13)
[2016-07-27] MEDS: NICOTINE 14MG PATCH. TD SCH (08:31)
[2016-07-27] MEDS: DICLOFENAC SODIUM 1% TOPICAL GEL 100GM TUBE. TP SCH ×4 (09:35→22:37)
[2016-07-27] MEDS: oxyCODONE/APAP 5/325 1 TAB TABLET PO PRN ×2 (09:36→22:41)
[2016-07-27] MEDS: POTASSIUM CL 20MEQ D5-0.45NACL 1,000 ML IV SCH (10:54)
[2016-07-27 11:00] VITALS: BP 130/82
[2016-07-27] MEDS: FUROSEMIDE 40 MG/4 ML VIAL. IVP SCH (11:39)
[2016-07-27] MEDS: POTASSIUM CHLORIDE 20 MEQ TABLET.ER. PO SCH (12:01)
--- NOTE | 2016-07-27 13:30 | PDOC ---
OBJECTIVE Vital Signs Vital Signs Date Time Temp Pulse Resp B/P (MAP) Pulse Ox O2 Delivery O2 Flow Rate FiO2 07/27/16 11:00 98.2 83 18 130/82 (98) 97 Nasal Cannula 2.0 98.2 07/27/16 10:36 20 97 Room Air 2.0 07/27/16 09:36 20 95 Nasal Cannula 2.0 07/27/16 08:00 Room Air 07/27/16 07:00 99.9 87 16 111/74 (86) 95 Nasal Cannula 2.0 99.9 07/27/16 03:39 98.5 81 18 104/69 (81) 94 Room Air 98.5 07/26/16 23:41 98.4 75 18 113/75 (88) 98 Nasal Cannula 2.0 98.4 07/26/16 20:14 Room Air 07/26/16 19:56 98.1 74 20 139/74 (95) 100 Room Air 98.1 07/26/16 15:36 Room Air I & O Intake and Output 07/27/16 07:00 Intake Total 1527 ml Balance 1527 ml Intake Oral 1500 ml IV Total 27 ml # Voids 1 # Bowel Movements 1 ASSESSMENT/PLAN Assessment/Plan 1- new acute dsystolic CHF with EF 25 % and bilateral pleural effusion, consult CV, start lasix likely need cardiac cath 2 Hypoglycemia and recent weight loss. adjusting insulin BS now high 3. Low-grade temperature, not sure of the source. 4. Elevated sedimentation rate but improved this admit 5. Weight loss. 6. Diabetes mellitus type 2, insulin requiring. 7. Coronary artery disease. 8. Peripheral vascular disease, rather severe for her age. 9. Osteoarthritis. Problems: COMMENT Lab Laboratory Tests Test 07/26/16 14:30 07/26/16 16:18 07/26/16 20:37 07/27/16 04:10 Erythrocyte Sedimentation Rate 39 (0-25) Glucose (Fingerstick) 184 mg/dL (70-99) 174 mg/dL (70-99) White Blood Count 9.3 x10^3/uL (4.0-11.0) Red Blood Count 3.94 x10^6/uL (3.50-5.40) Hemoglobin 11.5 g/dL (12.0-15.5) Hematocrit 34.1 % (36.0-47.0) Mean Corpuscular Volume 86 fL (79-100) Mean Corpuscular Hemoglobin 29 pg (25-35) Mean Corpuscular Hemoglobin Concent 34 g/dL (31-37) Red Cell Distribution Width 15.6 % (11.5-14.5) Platelet Count 367 x10^3/uL (140-400) Sodium Level 135 mmol/L (136-145) Potassium Level 4.3 mmol/L (3.5-5.1) Chloride Level 101 mmol/L (98-107) Carbon Dioxide Level 27 mmol/L (21-32) Anion Gap 7 (6-14) Blood Urea Nitrogen 10 mg/dL (7-20) Creatinine 0.9 mg/dL (0.6-1.0) Estimated GFR (Cockcroft-Gault) 64.1 Glucose Level 258 mg/dL (70-99) Calcium Level 8.6 mg/dL (8.5-10.1) Test 07/27/16 07:01 07/27/16 10:33 Glucose (Fingerstick) 274 mg/dL (70-99) 304 mg/dL (70-99) JOSH GANT MD Jul 27, 2016 13:30
--- NOTE | 2016-07-27 14:31 | PDOC2 ---
CONSULT Date of Consult Date of Consult DATE: 07/27/16 TIME: 14:24 Reason for Consult Reason for Consult: CHF and cardiomyopathy Referring Physician Referring Physician: Dr. Valdez Identification/Chief Complaint Chief Complaint Dyspnea History of Present Illness Reason for Visit: This patient is a 60-year-old lady that is known to me for many years and she has a history of diabetes, hypertension, severe peripheral vascular disease, coronary artery disease and COPD. She has had multiple vascular procedures done. Her level of activity has decreased significantly. The patient came in with dyspnea and was found to be in CHF. She was given IV Lasix and an echocardiogram was done that showed: Left ventricle systolic function is moderate to severely impaired. The Ejection Fraction is 25%. Transmitral Doppler flow pattern is restrictive diastolic dysfunction. There is mild concentric left ventricular hypertrophy. The right ventricular systolic function is moderately decreased The left atrium size is normal. The right atrium size is normal. Calculated aortic valve area is 0.44 cm2 with maximum pressure gradient of 38 mmHg and mean pressure gradient of 20 mmHg. Doppler and color-flow analysis revealed aortic stenosis. The aortic valve is calcified and displays decreased opening. There is partial fusion of 2 of the cusps with a lot of calcifications Doppler and Color Flow revealed trace aortic regurgitation. Calculated aortic valve area is 0.44 cm2 with maximum pressure gradient of 38 mmHg and mean pressure gradient of 20 mmHg. Doppler and color-flow analysis revealed aortic stenosis. Doppler and Color-flow revealed trace mitral regurgitation. The mitral valve is calcified but opens well. Doppler and Color Flow revealed mild tricuspid regurgitation. There is moderate pulmonary hypertension. The PA pressure was estimated at 42 mmHg. Doppler and Color Flow revealed severe pulmonic valvular regurgitation. There is a small circumferential pericardial effusion. At the time that I examined her the patient denies having any chest pains and her dyspnea is doing better. Past Medical History Cardiovascular: CAD, HTN, Other Pulmonary: COPD, Pulmonary embolus Musculoskeletal: Osteoarthritis Rheumatologic: Fibromyalgia, Other Endocrine: Diabetes Past Surgical History Past Surgical History: Appendectomy, Cholecystectomy, Hysterectomy, Other Family History Family History: Alcohol Abuse, Cancer, Hypertension Social History ALCOHOL: none Drugs: None Current Problem List Problem List Problems Medical Problems: (1) Altered mental status Status: Acute Current Medications Current Medications Current Medications Dextrose/Sodium Chloride 1,000 ml @ 200 mls/hr 1X ONCE IV Last administered on 07/25/16t 12:40; Start 07/25/16 at 12:15; Stop 07/26/16 at 10:49; Status DC Dextrose (Dextrose 50%-Water Syringe) 25 gm 1X ONCE IV Last administered on 13:08; Start 07/25/16 at 13:00; Stop 07/25/16 at 13:03; Status DC Dextrose (Dextrose 50%-Water Syringe) 25 gm 1X ONCE IV Last administered on 14:19; Start 07/25/16 at 14:15; Stop 07/25/16 at 14:16; Status DC Ondansetron HCl (Zofran) 4 mg PRN Q8HRS PRN IV NAUSEA/VOMITING Last administered on 07/26/16 09:36; Start 07/25/16 at 15:00; Stop 07/26/16 at 14:59 ; Status DC Potassium Chloride/Dextrose/ Sod Cl 1,000 ml @ 75 mls/hr [id number] IV Last administered on 07/26/16 21:21; Start 07/25/16 at 19:15; Stop 07/27/16 at 11:18 ; Status DC Aspirin (Ecotrin) 81 mg DAILY PO Last administered on 07/27/16 08:27; Start at 09:00 Diclofenac Sodium (Voltaren) 1 saloni QID TP Last administered on 07/27/16 13:51 ; Start 07/25/16 at 21:00 Gabapentin (Neurontin) 600 mg TID PO Last administered on 07/27/16 13:51; Start 07/25/16 at 21:00 Nicotine (Nicoderm Cq 14mg) 1 patch DAILY TD Last administered on 07/27/16 08: 31; Start 07/25/16 at 19:30 Pantoprazole Sodium (Protonix) 40 mg DAILYAC PO Last administered on 07/27/16 08:26; Start 07/26/16 at 07:30 Pentoxifylline (TRENtal) 400 mg BIDWMEALS PO Last administered on 07/27/16 08: 26; Start 07/26/16 at 08:00 Duloxetine HCl (Cymbalta) 60 mg DAILY PO Last administered on 07/27/16 08:27; Start 07/26/16 at 09:00 Meloxicam (Mobic) 15 mg DAILY PO Last administered on 07/27/16 08:28; Start at 09:00 Oxycodone HCl (Roxicodone) 20 mg PRN QHS PRN PO PAIN Last administered on 20:19; Start 07/25/16 at 21:00; Stop 07/26/16 at 15:30; Status DC Zolpidem Tartrate (Ambien) 5 mg QHS PO Last administered on 07/26/16 21:18; Start 07/25/16 at 21:00 Zolpidem Tartrate (Ambien) 5 mg PRN QHS PRN PO INSOMNIA; Start 07/25/16 at 19: 30 Sodium Chloride 1,000 ml @ 75 mls/hr [id number] IV Last administered on 09:34; Start 07/26/16 at 11:00; Stop 07/27/16 at 11:18; Status DC Insulin Aspart (NovoLOG) 0-5 UNITS TIDWMEALS SQ Last administered on 07/27/16 11:49; Start 07/26/16 at 12:00 Dextrose (Dextrose 50%-Water Syringe) 12.5 gm PRN Q15MIN PRN IV SEE COMMENTS; Start 07/26/16 at 11:00 Insulin Detemir (Levemir) 20 units QHS SQ ; Start 07/26/16 at 21:00; Stop at 13:26; Status DC Oxycodone/ Acetaminophen (Percocet 5/325) 1 tab PRN Q4HRS PRN PO PAIN Last administered on 07/27/16 09:36; Start 07/26/16 at 15:30 Oxycodone HCl (Roxicodone) 20 mg PRN Q8HRS PRN PO PAIN BREAKTHROUGH; Start at 15:30 Furosemide (Lasix) 40 mg DAILY IVP Last administered on 07/27/16 11:39; Start 07/27/16 at 12:00 Potassium Chloride (Klor-Con) 20 meq [id number] PO Last administered on 12:01; Start 07/27/16 at 12:00 Insulin Detemir (Levemir) 30 units QHS SQ ; Start 07/27/16 at 21:00 Insulin Aspart (NovoLOG) 10 units TIDAC SQ ; Start 07/27/16 at 16:30 Active Scripts Active Pantoprazole Sodium 40 Mg Tablet. 40 Mg PO DAILYAC 30 Days Cymbalta (Duloxetine Hcl) 60 Mg Capsule. 60 Mg PO DAILY 30 Days Reported Gabapentin 600 Mg Tablet 600 Mg PO TID Oxycodone Hcl 20 Mg Tablet 20 Mg PO QHS PRN Ambien (Zolpidem Tartrate) 10 Mg Tablet 1 Tab PO QHS NICODERM CQ 14mg (Nicotine) 1 Each Patch.td24 1 Patch TP DAILY Meloxicam 15 Mg Tablet 1 Tab PO DAILY Novolog Flexpen (Insulin Aspart) 100 Unit/1 Ml Insuln.pen 3 Unit SQ TIDWMEALS Pentoxifylline 400 Mg Tablet.er 400 Mg PO BIDWMEALS Aspir-Low (Aspirin) 81 Mg Tablet.dr 1 Tab PO DAILY Voltaren (Diclofenac Sodium) 100 Gm Gel..gram. 1 Gm TP QID Levemir (Insulin Detemir) 100 Unit/1 Ml Vial 26 Unit SQ HS Allergies Allergies: Coded Allergies: I S O L A T I O N *CONTACT* (Verified Allergy, Unknown, 03/26/16) mrsa hydrocodone (Verified Adverse Reaction, Intermediate, LOOPY, 03/11/15) Physical Exam Physical Exam H EENT pupils are reactive. Oral mucosa well-hydrated. Neck is supple 1 cm JVD. Lungs breath sounds are decreased, bibasilar Rales, no significant wheezing. Heart regular rate and rhythm S1-S2 no S3 no S4 soft 1/6 systolic murmur Abdomen is soft bowel sounds are present Extremities trace edema, poor pulses Vitals VITALS Vital Signs Date Time Temp Pulse Resp B/P (MAP) Pulse Ox O2 Delivery O2 Flow Rate FiO2 07/27/16 11:00 98.2 83 18 130/82 (98) 97 Nasal Cannula 2.0 98.2 Labs Labs Laboratory Tests Test 07/25/16 14:40 07/25/16 14:48 07/25/16 15:35 07/25/16 15:42 White Blood Count 13.3 x10^3/uL (4.0-11.0) Red Blood Count 4.11 x10^6/uL (3.50-5.40) Hemoglobin 11.7 g/dL (12.0-15.5) Hematocrit 36.8 % (36.0-47.0) Mean Corpuscular Volume 90 fL (79-100) Mean Corpuscular Hemoglobin 29 pg (25-35) Mean Corpuscular Hemoglobin Concent 32 g/dL (31-37) Red Cell Distribution Width 15.8 % (11.5-14.5) Platelet Count 353 x10^3/uL (140-400) Neutrophils (%) (Auto) 85 % (31-73) Lymphocytes (%) (Auto) 8 % (24-48) Monocytes (%) (Auto) 6 % (0-9) Eosinophils (%) (Auto) 0 % (0-3) Basophils (%) (Auto) 1 % (0-3) Neutrophils # (Auto) 11.3 x10^3uL (1.8-7.7) Lymphocytes # (Auto) 1.1 x10^3/uL (1.0-4.8) Monocytes # (Auto) 0.8 x10^3/uL (0.0-1.1) Eosinophils # (Auto) 0.0 x10^3/uL (0.0-0.7) Basophils # (Auto) 0.1 x10^3/uL (0.0-0.2) Glucose (Fingerstick) 211 mg/dL (70-99) 266 mg/dL (70-99) Urine Color Yellow Urine Clarity Clear Urine pH 6.0 Urine Specific [place] 1.010 Urine Protein 100 mg/dL (NEG-TRACE) Urine Glucose (UA) 250 mg/dL (NEG) Urine Ketones (Stick) Negative mg/dL (NEG) Urine Blood Negative (NEG) Urine Nitrite Negative (NEG) Urine Bilirubin Negative (NEG) Urine Urobilinogen Dipstick 1.0 mg/dL (0.2 mg/dL) Urine Leukocyte Esterase Trace (NEG) Urine RBC 0 /HPF (0-2) Urine WBC 1-4 /HPF (0-4) Urine Squamous Epithelial Cells Occ /LPF Urine Bacteria Few /HPF (0-FEW) Urine Opiates Screen Pos (NEG) Urine Methadone Screen Neg (NEG) Urine Barbiturates Neg (NEG) Urine Phencyclidine Screen Neg (NEG) Urine Amphetamine/Methamphetamine Neg (NEG) Urine Benzodiazepines Screen Neg (NEG) Urine Cocaine Screen Neg (NEG) Urine Cannabinoids Screen Neg (NEG) Urine Ethyl Alcohol Neg (NEG) Test 07/25/16 16:36 07/25/16 17:35 07/25/16 20:33 07/25/16 21:00 Glucose (Fingerstick) 224 mg/dL (70-99) 223 mg/dL (70-99) 168 mg/dL (70-99) Nasal Screen MRSA (PCR) Negative (Negative) Test 07/25/16 22:21 07/26/16 01:06 07/26/16 03:56 07/26/16 05:45 Glucose (Fingerstick) 226 mg/dL (70-99) 239 mg/dL (70-99) 216 mg/dL (70-99) White Blood Count 10.3 x10^3/uL (4.0-11.0) Red Blood Count 3.93 x10^6/uL (3.50-5.40) Hemoglobin 11.5 g/dL (12.0-15.5) Hematocrit 34.0 % (36.0-47.0) Mean Corpuscular Volume 87 fL (79-100) Mean Corpuscular Hemoglobin 29 pg (25-35) Mean Corpuscular Hemoglobin Concent 34 g/dL (31-37) Red Cell Distribution Width 15.4 % (11.5-14.5) Platelet Count 381 x10^3/uL (140-400) Neutrophils (%) (Auto) 78 % (31-73) Lymphocytes (%) (Auto) 14 % (24-48) Monocytes (%) (Auto) 7 % (0-9) Eosinophils (%) (Auto) 1 % (0-3) Basophils (%) (Auto) 1 % (0-3) Neutrophils # (Auto) 8.0 x10^3uL (1.8-7.7) Lymphocytes # (Auto) 1.4 x10^3/uL (1.0-4.8) Monocytes # (Auto) 0.7 x10^3/uL (0.0-1.1) Eosinophils # (Auto) 0.1 x10^3/uL (0.0-0.7) Basophils # (Auto) 0.1 x10^3/uL (0.0-0.2) Sodium Level 131 mmol/L (136-145) Potassium Level 4.8 mmol/L (3.5-5.1) Chloride Level 97 mmol/L (98-107) Carbon Dioxide Level 26 mmol/L (21-32) Anion Gap 8 (6-14) Blood Urea Nitrogen 11 mg/dL (7-20) Creatinine 0.9 mg/dL (0.6-1.0) Estimated GFR (Cockcroft-Gault) 64.1 Glucose Level 331 mg/dL (70-99) Calcium Level 8.3 mg/dL (8.5-10.1) Test 07/26/16 07:17 07/26/16 10:31 07/26/16 11:50 07/26/16 14:30 Glucose (Fingerstick) 372 mg/dL (70-99) 389 mg/dL (70-99) 379 mg/dL (70-99) Erythrocyte Sedimentation Rate 39 (0-25) Test 07/26/16 16:18 07/26/16 20:37 07/27/16 04:10 07/27/16 07:01 Glucose (Fingerstick) 184 mg/dL (70-99) 174 mg/dL (70-99) 274 mg/dL (70-99) White Blood Count 9.3 x10^3/uL (4.0-11.0) Red Blood Count 3.94 x10^6/uL (3.50-5.40) Hemoglobin 11.5 g/dL (12.0-15.5) Hematocrit 34.1 % (36.0-47.0) Mean Corpuscular Volume 86 fL (79-100) Mean Corpuscular Hemoglobin 29 pg (25-35) Mean Corpuscular Hemoglobin Concent 34 g/dL (31-37) Red Cell Distribution Width 15.6 % (11.5-14.5) Platelet Count 367 x10^3/uL (140-400) Sodium Level 135 mmol/L (136-145) Potassium Level 4.3 mmol/L (3.5-5.1) Chloride Level 101 mmol/L (98-107) Carbon Dioxide Level 27 mmol/L (21-32) Anion Gap 7 (6-14) Blood Urea Nitrogen 10 mg/dL (7-20) Creatinine 0.9 mg/dL (0.6-1.0) Estimated GFR (Cockcroft-Gault) 64.1 Glucose Level 258 mg/dL (70-99) Calcium Level 8.6 mg/dL (8.5-10.1) Test 07/27/16 10:33 Glucose (Fingerstick) 304 mg/dL (70-99) Laboratory Tests Test 07/26/16 14:30 07/26/16 16:18 07/26/16 20:37 07/27/16 04:10 Erythrocyte Sedimentation Rate 39 (0-25) Glucose (Fingerstick) 184 mg/dL (70-99) 174 mg/dL (70-99) White Blood Count 9.3 x10^3/uL (4.0-11.0) Red Blood Count 3.94 x10^6/uL (3.50-5.40) Hemoglobin 11.5 g/dL (12.0-15.5) Hematocrit 34.1 % (36.0-47.0) Mean Corpuscular Volume 86 fL (79-100) Mean Corpuscular Hemoglobin 29 pg (25-35) Mean Corpuscular Hemoglobin Concent 34 g/dL (31-37) Red Cell Distribution Width 15.6 % (11.5-14.5) Platelet Count 367 x10^3/uL (140-400) Sodium Level 135 mmol/L (136-145) Potassium Level 4.3 mmol/L (3.5-5.1) Chloride Level 101 mmol/L (98-107) Carbon Dioxide Level 27 mmol/L (21-32) Anion Gap 7 (6-14) Blood Urea Nitrogen 10 mg/dL (7-20) Creatinine 0.9 mg/dL (0.6-1.0) Estimated GFR (Cockcroft-Gault) 64.1 Glucose Level 258 mg/dL (70-99) Calcium Level 8.6 mg/dL (8.5-10.1) Test 07/27/16 07:01 07/27/16 10:33 Glucose (Fingerstick) 274 mg/dL (70-99) 304 mg/dL (70-99) Assessment/Plan Assessment/Plan This patient has a severe vascular disease with known peripheral vascular disease as well as coronary artery disease. Now she has evolved in a cardiomyopathy with a mild aortic stenosis therefore I would recommend a heart catheterization for this patient to further evaluate her condition. We will set up for the heart catheter on Friday. Thank you very much for asking me to participate in the care of this patient. SAUNDRA FORTUNE MD Jul 27, 2016 14:31
[2016-07-27 15:00] VITALS: BP 110/74
--- NOTE | 2016-07-27 15:59 | PDOC ---
Infectious Disease Note Vital Sign Vital Signs Vital Signs Date Time Temp Pulse Resp B/P (MAP) Pulse Ox O2 Delivery O2 Flow Rate FiO2 07/27/16 15:00 97.9 79 16 110/74 (86) 100 Nasal Cannula 2.0 97.9 Labs Lab Laboratory Tests Test 07/26/16 16:18 07/26/16 20:37 07/27/16 04:10 07/27/16 07:01 Glucose (Fingerstick) 184 mg/dL (70-99) 174 mg/dL (70-99) 274 mg/dL (70-99) White Blood Count 9.3 x10^3/uL (4.0-11.0) Red Blood Count 3.94 x10^6/uL (3.50-5.40) Hemoglobin 11.5 g/dL (12.0-15.5) Hematocrit 34.1 % (36.0-47.0) Mean Corpuscular Volume 86 fL (79-100) Mean Corpuscular Hemoglobin 29 pg (25-35) Mean Corpuscular Hemoglobin Concent 34 g/dL (31-37) Red Cell Distribution Width 15.6 % (11.5-14.5) Platelet Count 367 x10^3/uL (140-400) Sodium Level 135 mmol/L (136-145) Potassium Level 4.3 mmol/L (3.5-5.1) Chloride Level 101 mmol/L (98-107) Carbon Dioxide Level 27 mmol/L (21-32) Anion Gap 7 (6-14) Blood Urea Nitrogen 10 mg/dL (7-20) Creatinine 0.9 mg/dL (0.6-1.0) Estimated GFR (Cockcroft-Gault) 64.1 Glucose Level 258 mg/dL (70-99) Calcium Level 8.6 mg/dL (8.5-10.1) Test 07/27/16 10:33 Glucose (Fingerstick) 304 mg/dL (70-99) Objective Assessment Fever Leukocytosis, improved off antibiotics acute CHF w/ pleural effusions Cardiomyopathy w/ EF 25% PVD DM Plan Plan of Care Hold antibiotics for now and observe Heart cath planned Monitor cultures Thank you [id number] Attending Co-Sign The patient was seen and interviewed as well as examined at the bedside. The chart was reviewed. The case was discussed. Agree with the plan of care. pt was seen on 07/27 PEDRO ROTH APRN Jul 27, 2016 15:59 AALIYAH ELIZONDO MD Jul 28, 2016 14:04
[2016-07-27 19:00] VITALS: BP 105/73
[2016-07-27] MEDS ORDERED: INSULIN DETEMIR 300 UNITS/3 ML INSULN.PEN. SQ SCH (21:00)
[2016-07-27] MEDS: ZOLPIDEM 5 MG TABLET. PO SCH (22:36)
[2016-07-27 23:00] VITALS: BP 125/81
[2016-07-28 03:00] VITALS: BP 124/82
[2016-07-28 06:40] LABS: ALBUMIN 2.6 g/dL (3.4-5.0); ALBUMIN/GLOBULIN RATIO 0.5 (1.0-1.7); CALCIUM 8.8 mg/dL (8.5-10.1); CREATININE 1.3 mg/dL (0.6-1.0); GFR 41.9; POTASSIUM 4.3 mmol/L (3.5-5.1); TOTAL BILIRUBIN 0.4 mg/dL (0.2-1.0); TOTAL PROTEIN 7.5 g/dL (6.4-8.2)
[2016-07-28 06:46] LABS: HEMATOCRIT 34.8 % (36.0-47.0); HEMOGLOBIN 11.5 g/dL (12.0-15.5); RED CELL DISTRIBUTION WIDTH 15.3 % (11.5-14.5); WHITE BLOOD COUNT 10.5 x10^3/uL (4.0-11.0)
[2016-07-28 07:00] VITALS: BP 109/77
[2016-07-28] MEDS: PANTOPRAZOLE 40 MG TABLET.DR. PO SCH (07:46)
[2016-07-28] MEDS: INSULIN ASPART 300 UNITS/3 ML INSULN.PEN SQ SCH ×6 (08:00→17:00)
[2016-07-28] MEDS: NICOTINE 14MG PATCH. TD SCH (08:26)
[2016-07-28] MEDS: GABAPENTIN 300 MG CAPSULE. PO SCH ×3 (08:27→21:14)
[2016-07-28] MEDS: PENTOXIFYLLINE ER 400 MG TABLET.ER. PO SCH ×2 (08:27→17:01)
[2016-07-28] MEDS: FUROSEMIDE 40 MG/4 ML VIAL. IVP SCH (08:27)
[2016-07-28] MEDS: POTASSIUM CHLORIDE 20 MEQ TABLET.ER. PO SCH (08:28)
[2016-07-28] MEDS: MELOXICAM 7.5 MG TABLET PO SCH (08:28)
[2016-07-28] MEDS: ASPIRIN ENTERIC COATED 81 MG TABLET.DR. PO SCH (08:28)
[2016-07-28] MEDS: DULoxetine HCL 30 MG CAPSULE.DR PO SCH (08:29)
[2016-07-28] MEDS: DICLOFENAC SODIUM 1% TOPICAL GEL 100GM TUBE. TP SCH ×4 (08:29→21:15)
[2016-07-28 11:00] VITALS: BP 104/70
--- NOTE | 2016-07-28 12:11 | CONS ---
DATE OF CONSULTATION: 07/26/2016 REQUESTING PHYSICIAN: Dr. Valdez. REASON FOR CONSULTATION: Fever of unknown origin. HISTORY OF PRESENT ILLNESS: This patient is a 60-year-old female with a history of diabetes, hypertension, peripheral vascular disease, coronary artery disease, who over the past week or so has been experiencing low-grade fevers, chills, increased fatigue and diminished appetite as well as generalized weakness and weight loss. A chest x-ray revealed worsening right pleural effusion and interval development of a small left pleural effusion with moderate bibasilar infiltrates slightly due to congestive heart failure. A followup echocardiogram revealed [id number] impairment of left ventricular systolic function with an EF of 25%. She has been evaluated by Cardiology and a heart cath is planned. On admission, she did have an elevated white blood cell count of 13,300, but it since trend down to 9300. Urine and blood cultures no growth to date. She is currently not on any antibiotics. The patient arrives to ER via EMS altered mental status changes and hyperglycemia with a blood glucose level 11. PAST MEDICAL HISTORY: Diabetes mellitus type 2, hypertension, coronary artery disease, pulmonary emboli, peripheral vascular disease, sleep apnea, degenerative disk disease, chronic pain, and osteoarthritis. PAST SURGICAL HISTORY: Appendectomy, cholecystectomy, hysterectomy, aortic and femoral bypass. SOCIAL HISTORY: The patient lives at home. She is a smoker. FAMILY HISTORY: Positive for liver cancer. ALLERGIES: HYDROCODONE. MEDICATIONS: Reviewed in the MAR. REVIEW OF SYSTEMS: The patient continues to feel weak and fatigued. She denies headache, nasal/sinus congestion or sore throat. Denies difficulty swallowing. She denies cough, shortness of air, or wheezing. Denies chest discomfort, palpitations, or swelling. Denies nausea, vomiting, diarrhea, or constipation. Denies dysuria, frequency, or urgency. Denies muscle aches or joint pains. Denies rash. PHYSICAL EXAMINATION: GENERAL: female lying in bed in no apparent distress. VITAL SIGNS: Temperature is 97.9, T max 100.2, blood pressure 110/74, heart rate 79, respiratory rate 16, pulse oximetry on 2 liters nasal cannula. Weight is 137.5 pounds. HEENT: Pupils equally round and reactive. Normal conjunctivae. Oral mucosa is pink and moist. NECK: Supple, no adenopathy present. LUNGS: Diminished aeration in the bases. Nonlabored. HEART: Normal S1, S2. Positive murmur. ABDOMEN: Not distended. Bowel sounds are present, soft, nontender. EXTREMITIES: No gross edema or cyanosis. SKIN: Without rash. Warm to touch. NEUROLOGIC: Alert and oriented x 3. Moves all extremities. LABORATORY DATA: Today's WBC 9300. Hemoglobin 11.5, platelet count 367,000, sed rate 39. Electrolytes are unremarkable. Creatinine 0.9, BUN 10, glucose 258, total bilirubin 0.5, AST 82, ALT 25, albumin 3.3. Urine toxicology, positive opiates. Urinalysis unremarkable for infection. Culture negative. MRSA screen negative. Blood cultures negative so far. Chest x-ray per HPI. IMPRESSION: 1. Fever. 2. Leukocytosis. 3. Acute congestive heart failure with pleural effusions. 4. Cardiomyopathy with ejection fraction of 25%. 5. Peripheral vascular disease. 6. Diabetes mellitus. PLAN: Continue antibiotics and observe. Heart catheterization is planned by Cardiology. Monitor blood cultures. Thank you, Dr. Valdez for asking us to participate in this patient's care. Should you have further questions or concerns, please call. The patient seen and examined and plan of care implemented by Dr. Mor Elizondo. MOR ELIZONDO MD DR: IRAIS/britta JOB#: [id number] / [id number]
--- NOTE | 2016-07-28 12:52 | PDOC ---
SUBJECTIVE Subjective feels ok, temp down withut antibiotic awaiting cultures, no new complaints OBJECTIVE Vital Signs Vital Signs Date Time Temp Pulse Resp B/P (MAP) Pulse Ox O2 Delivery O2 Flow Rate FiO2 07/28/16 11:00 98.5 78 20 104/70 (81) 92 Room Air 98.5 07/28/16 08:00 Nasal Cannula 2.0 07/28/16 07:00 98.5 83 20 109/77 (88) 91 Room Air 98.5 07/28/16 03:00 98.8 82 18 124/82 (96) 97 Nasal Cannula 2.0 98.8 07/27/16 23:41 20 97 Nasal Cannula 2.0 07/27/16 23:00 98.6 83 18 125/81 (96) 98 Nasal Cannula 2.0 98.6 07/27/16 22:41 20 95 Room Air 2.0 07/27/16 20:00 Nasal Cannula 07/27/16 19:00 98.1 77 18 105/73 (84) 95 Nasal Cannula 2.0 98.1 07/27/16 15:00 97.9 79 16 110/74 (86) 100 Nasal Cannula 2.0 97.9 I & O Intake and Output 07/28/16 07:00 Intake Total 1990 ml Balance 1990 ml Intake Oral 1990 ml # Voids 4 PHYSICAL EXAM Physical Exam decrease swelling lLE lungs clearer ASSESSMENT/PLAN Assessment/Plan 1- new acute dsystolic CHF with EF 25 % and bilateral pleural effusion, cardiac cath Friday , CV help appreciated 2 Hypoglycemia and recent weight loss. adjusting insulin BS better 3. Low-grade temperature, better without antibiotics await cultures appreciate ID help 4. Elevated sedimentation rate but improved this admit 5. Weight loss. 6. Diabetes mellitus type 2, insulin requiring. 7. Coronary artery disease. 8. Peripheral vascular disease, rather severe for her age. 9. Osteoarthritis. will hold lasix as getting dye with cath in AM Problems: COMMENT Lab Laboratory Tests Test 07/27/16 16:10 07/27/16 20:39 07/27/16 21:00 07/27/16 21:44 Glucose (Fingerstick) 245 mg/dL (70-99) 54 mg/dL (70-99) 58 mg/dL (70-99) 73 mg/dL (70-99) Test 07/27/16 22:55 07/28/16 02:13 07/28/16 06:00 07/28/16 08:00 Glucose (Fingerstick) 103 mg/dL (70-99) 124 mg/dL (70-99) 143 mg/dL (70-99) White Blood Count 10.5 x10^3/uL (4.0-11.0) Red Blood Count 4.00 x10^6/uL (3.50-5.40) Hemoglobin 11.5 g/dL (12.0-15.5) Hematocrit 34.8 % (36.0-47.0) Mean Corpuscular Volume 87 fL (79-100) Mean Corpuscular Hemoglobin 29 pg (25-35) Mean Corpuscular Hemoglobin Concent 33 g/dL (31-37) Red Cell Distribution Width 15.3 % (11.5-14.5) Platelet Count 371 x10^3/uL (140-400) Sodium Level 137 mmol/L (136-145) Potassium Level 4.3 mmol/L (3.5-5.1) Chloride Level 102 mmol/L (98-107) Carbon Dioxide Level 31 mmol/L (21-32) Anion Gap 4 (6-14) Blood Urea Nitrogen 15 mg/dL (7-20) Creatinine 1.3 mg/dL (0.6-1.0) Estimated GFR (Cockcroft-Gault) 41.9 BUN/Creatinine Ratio 12 (6-20) Glucose Level 158 mg/dL (70-99) Calcium Level 8.8 mg/dL (8.5-10.1) Total Bilirubin 0.4 mg/dL (0.2-1.0) Aspartate Amino Transf (AST/SGOT) 45 U/L (15-37) Alanine Aminotransferase (ALT/SGPT) 26 U/L (14-59) Alkaline Phosphatase 133 U/L (46-116) Total Protein 7.5 g/dL (6.4-8.2) Albumin 2.6 g/dL (3.4-5.0) Albumin/Globulin Ratio 0.5 (1.0-1.7) Test 07/28/16 10:53 Glucose (Fingerstick) 264 mg/dL (70-99) JOSH GANT MD Jul 28, 2016 12:52
--- NOTE | 2016-07-28 13:23 | PDOC ---
PROGRESS NOTES Subjective Subjective Patient very fatigued and gets short of breath easily. No chest pains. Objective Objective Vital Signs Date Time Temp Pulse Resp B/P (MAP) Pulse Ox O2 Delivery O2 Flow Rate FiO2 07/28/16 11:00 98.5 78 20 104/70 (81) 92 Room Air 98.5 07/28/16 08:00 2.0 Intake and Output 07/28/16 07:00 Intake Total 1990 ml Balance 1990 ml Intake Oral 1990 ml # Voids 4 Physical Exam Physical Exam No significant changes in cardiac exam Assessment Assessment We discussed the situation and options and it was decided to proceed with a heart catheterization tomorrow. Comment Review of Relevant I have reviewed the following items sarahy (where applicable) has been applied. Labs Laboratory Tests Test 07/26/16 14:30 07/26/16 16:18 07/26/16 20:37 07/27/16 04:10 Erythrocyte Sedimentation Rate 39 (0-25) Glucose (Fingerstick) 184 mg/dL (70-99) 174 mg/dL (70-99) White Blood Count 9.3 x10^3/uL (4.0-11.0) Red Blood Count 3.94 x10^6/uL (3.50-5.40) Hemoglobin 11.5 g/dL (12.0-15.5) Hematocrit 34.1 % (36.0-47.0) Mean Corpuscular Volume 86 fL (79-100) Mean Corpuscular Hemoglobin 29 pg (25-35) Mean Corpuscular Hemoglobin Concent 34 g/dL (31-37) Red Cell Distribution Width 15.6 % (11.5-14.5) Platelet Count 367 x10^3/uL (140-400) Sodium Level 135 mmol/L (136-145) Potassium Level 4.3 mmol/L (3.5-5.1) Chloride Level 101 mmol/L (98-107) Carbon Dioxide Level 27 mmol/L (21-32) Anion Gap 7 (6-14) Blood Urea Nitrogen 10 mg/dL (7-20) Creatinine 0.9 mg/dL (0.6-1.0) Estimated GFR (Cockcroft-Gault) 64.1 Glucose Level 258 mg/dL (70-99) Calcium Level 8.6 mg/dL (8.5-10.1) Test 07/27/16 07:01 07/27/16 10:33 07/27/16 16:10 07/27/16 20:39 Glucose (Fingerstick) 274 mg/dL (70-99) 304 mg/dL (70-99) 245 mg/dL (70-99) 54 mg/dL (70-99) Test 07/27/16 21:00 07/27/16 21:44 07/27/16 22:55 07/28/16 02:13 Glucose (Fingerstick) 58 mg/dL (70-99) 73 mg/dL (70-99) 103 mg/dL (70-99) 124 mg/dL (70-99) Test 07/28/16 06:00 07/28/16 08:00 07/28/16 10:53 White Blood Count 10.5 x10^3/uL (4.0-11.0) Red Blood Count 4.00 x10^6/uL (3.50-5.40) Hemoglobin 11.5 g/dL (12.0-15.5) Hematocrit 34.8 % (36.0-47.0) Mean Corpuscular Volume 87 fL (79-100) Mean Corpuscular Hemoglobin 29 pg (25-35) Mean Corpuscular Hemoglobin Concent 33 g/dL (31-37) Red Cell Distribution Width 15.3 % (11.5-14.5) Platelet Count 371 x10^3/uL (140-400) Sodium Level 137 mmol/L (136-145) Potassium Level 4.3 mmol/L (3.5-5.1) Chloride Level 102 mmol/L (98-107) Carbon Dioxide Level 31 mmol/L (21-32) Anion Gap 4 (6-14) Blood Urea Nitrogen 15 mg/dL (7-20) Creatinine 1.3 mg/dL (0.6-1.0) Estimated GFR (Cockcroft-Gault) 41.9 BUN/Creatinine Ratio 12 (6-20) Glucose Level 158 mg/dL (70-99) Calcium Level 8.8 mg/dL (8.5-10.1) Total Bilirubin 0.4 mg/dL (0.2-1.0) Aspartate Amino Transf (AST/SGOT) 45 U/L (15-37) Alanine Aminotransferase (ALT/SGPT) 26 U/L (14-59) Alkaline Phosphatase 133 U/L (46-116) Total Protein 7.5 g/dL (6.4-8.2) Albumin 2.6 g/dL (3.4-5.0) Albumin/Globulin Ratio 0.5 (1.0-1.7) Glucose (Fingerstick) 143 mg/dL (70-99) 264 mg/dL (70-99) Laboratory Tests Test 07/27/16 16:10 07/27/16 20:39 07/27/16 21:00 07/27/16 21:44 Glucose (Fingerstick) 245 mg/dL (70-99) 54 mg/dL (70-99) 58 mg/dL (70-99) 73 mg/dL (70-99) Test 07/27/16 22:55 07/28/16 02:13 07/28/16 06:00 07/28/16 08:00 Glucose (Fingerstick) 103 mg/dL (70-99) 124 mg/dL (70-99) 143 mg/dL (70-99) White Blood Count 10.5 x10^3/uL (4.0-11.0) Red Blood Count 4.00 x10^6/uL (3.50-5.40) Hemoglobin 11.5 g/dL (12.0-15.5) Hematocrit 34.8 % (36.0-47.0) Mean Corpuscular Volume 87 fL (79-100) Mean Corpuscular Hemoglobin 29 pg (25-35) Mean Corpuscular Hemoglobin Concent 33 g/dL (31-37) Red Cell Distribution Width 15.3 % (11.5-14.5) Platelet Count 371 x10^3/uL (140-400) Sodium Level 137 mmol/L (136-145) Potassium Level 4.3 mmol/L (3.5-5.1) Chloride Level 102 mmol/L (98-107) Carbon Dioxide Level 31 mmol/L (21-32) Anion Gap 4 (6-14) Blood Urea Nitrogen 15 mg/dL (7-20) Creatinine 1.3 mg/dL (0.6-1.0) Estimated GFR (Cockcroft-Gault) 41.9 BUN/Creatinine Ratio 12 (6-20) Glucose Level 158 mg/dL (70-99) Calcium Level 8.8 mg/dL (8.5-10.1) Total Bilirubin 0.4 mg/dL (0.2-1.0) Aspartate Amino Transf (AST/SGOT) 45 U/L (15-37) Alanine Aminotransferase (ALT/SGPT) 26 U/L (14-59) Alkaline Phosphatase 133 U/L (46-116) Total Protein 7.5 g/dL (6.4-8.2) Albumin 2.6 g/dL (3.4-5.0) Albumin/Globulin Ratio 0.5 (1.0-1.7) Test 07/28/16 10:53 Glucose (Fingerstick) 264 mg/dL (70-99) Microbiology 07/26/16 Blood Culture - Preliminary, Resulted NO GROWTH AFTER 1 DAY 07/25/16 Urine Culture - Final, Complete 07/25/16 Urine Culture Result 1 (BUSTER) - Final, Complete Medications Current Medications Dextrose/Sodium Chloride 1,000 ml @ 200 mls/hr 1X ONCE IV Last administered on 07/25/16 12:40; Start 07/25/16 at 12:15; Stop 07/26/16 at 10:49; Status DC Dextrose (Dextrose 50%-Water Syringe) 25 gm 1X ONCE IV Last administered on 13:08; Start 07/25/16 at 13:00; Stop 07/25/16 at 13:03; Status DC Dextrose (Dextrose 50%-Water Syringe) 25 gm 1X ONCE IV Last administered on 14:19; Start 07/25/16 at 14:15; Stop 07/25/16 at 14:16; Status DC Ondansetron HCl (Zofran) 4 mg PRN Q8HRS PRN IV NAUSEA/VOMITING Last administered on 07/26/16 09:36; Start 07/25/16 at 15:00; Stop 07/26/16 at 14:59 ; Status DC Potassium Chloride/Dextrose/ Sod Cl 1,000 ml @ 75 mls/hr [id number] IV Last administered on 07/26/16 21:21; Start 07/25/16 at 19:15; Stop 07/27/16 at 11:18 ; Status DC Aspirin (Ecotrin) 81 mg DAILY PO Last administered on 07/28/16 08:28; Start at 09:00 Diclofenac Sodium (Voltaren) 1 saloni QID TP Last administered on 07/28/16 08:29 ; Start 07/25/16 at 21:00 Gabapentin (Neurontin) 600 mg TID PO Last administered on 07/28/16 08:27; Start 07/25/16 at 21:00 Nicotine (Nicoderm Cq 14mg) 1 patch DAILY TD Last administered on 07/28/16 08: 26; Start 07/25/16 at 19:30 Pantoprazole Sodium (Protonix) 40 mg DAILYAC PO Last administered on 07/28/16 07:46; Start 07/26/16 at 07:30 Pentoxifylline (TRENtal) 400 mg BIDWMEALS PO Last administered on 07/28/16 08: 27; Start 07/26/16 at 08:00 Duloxetine HCl (Cymbalta) 60 mg DAILY PO Last administered on 07/28/16 08:29; Start 07/26/16 at 09:00 Meloxicam (Mobic) 15 mg DAILY PO Last administered on 07/28/16 08:28; Start at 09:00 Oxycodone HCl (Roxicodone) 20 mg PRN QHS PRN PO PAIN Last administered on 20:19; Start 07/25/16 at 21:00; Stop 07/26/16 at 15:30; Status DC Zolpidem Tartrate (Ambien) 5 mg QHS PO Last administered on 07/27/16 22:36; Start 07/25/16 at 21:00 Zolpidem Tartrate (Ambien) 5 mg PRN QHS PRN PO INSOMNIA; Start 07/25/16 at 19: 30 Sodium Chloride 1,000 ml @ 75 mls/hr [id number] IV Last administered on 09:34; Start 07/26/16 at 11:00; Stop 07/27/16 at 11:18; Status DC Insulin Aspart (NovoLOG) 0-5 UNITS TIDWMEALS SQ Last administered on 07/28/16 12:13; Start 07/26/16 at 12:00 Dextrose (Dextrose 50%-Water Syringe) 12.5 gm PRN Q15MIN PRN IV SEE COMMENTS; Start 07/26/16 at 11:00 Insulin Detemir (Levemir) 20 units QHS SQ ; Start 07/26/16 at 21:00; Stop at 13:26; Status DC Oxycodone/ Acetaminophen (Percocet 5/325) 1 tab PRN Q4HRS PRN PO PAIN Last administered on 07/27/16 22:41; Start 07/26/16 at 15:30 Oxycodone HCl (Roxicodone) 20 mg PRN Q8HRS PRN PO PAIN BREAKTHROUGH; Start at 15:30 Furosemide (Lasix) 40 mg DAILY IVP Last administered on 07/28/16 08:27; Start 07/27/16 at 12:00; Stop 07/28/16 at 12:48; Status DC Potassium Chloride (Klor-Con) 20 meq [id number] PO Last administered on 08:28; Start 07/27/16 at 12:00; Stop 07/28/16 at 12:48; Status DC Insulin Detemir (Levemir) 30 units QHS SQ ; Start 07/27/16 at 21:00; Stop at 12:53; Status DC Insulin Aspart (NovoLOG) 10 units TIDAC SQ Last administered on 07/28/16 12:12 ; Start 07/27/16 at 16:30; Stop 07/28/16 at 12:53; Status DC Insulin Aspart (NovoLOG) 5 units TIDAC SQ ; Start 07/28/16 at 16:30 Insulin Detemir (Levemir) 25 units QHS SQ ; Start 07/28/16 at 21:00 Active Scripts Active Pantoprazole Sodium 40 Mg Tablet.dr 40 Mg PO DAILYAC 30 Days Cymbalta (Duloxetine Hcl) 60 Mg Capsule.dr 60 Mg PO DAILY 30 Days Reported Gabapentin 600 Mg Tablet 600 Mg PO TID Oxycodone Hcl 20 Mg Tablet 20 Mg PO QHS PRN Ambien (Zolpidem Tartrate) 10 Mg Tablet 1 Tab PO QHS NICODERM CQ 14mg (Nicotine) 1 Each Patch.td24 1 Patch TP DAILY Meloxicam 15 Mg Tablet 1 Tab PO DAILY Novolog Flexpen (Insulin Aspart) 100 Unit/1 Ml Insuln.pen 3 Unit SQ TIDWMEALS Pentoxifylline 400 Mg Tablet.er 400 Mg PO BIDWMEALS Aspir-Low (Aspirin) 81 Mg Tablet.dr 1 Tab PO DAILY Voltaren (Diclofenac Sodium) 100 Gm Gel..gram. 1 Gm TP QID Levemir (Insulin Detemir) 100 Unit/1 Ml Vial 26 Unit SQ HS Vitals/I & O Vital Sign - Last 24 Hours 07/27/16 07/27/16 07/27/16 07/27/16 15:00 19:00 20:00 22:41 Temp 97.9 98.1 97.9 98.1 Pulse 79 77 Resp 16 18 20 B/P (MAP) 110/74 (86) 105/73 (84) Pulse Ox 100 95 95 O2 Delivery Nasal Cannula Nasal Cannula Nasal Cannula Room Air O2 Flow Rate 2.0 2.0 2.0 07/27/16 07/27/16 07/28/16 07/28/16 23:00 23:41 03:00 07:00 Temp 98.6 98.8 98.5 98.6 98.8 98.5 Pulse 83 82 83 Resp 18 20 18 20 B/P (MAP) 125/81 (96) 124/82 (96) 109/77 (88) Pulse Ox 98 97 97 91 O2 Delivery Nasal Cannula Nasal Cannula Nasal Cannula Room Air O2 Flow Rate 2.0 2.0 2.0 07/28/16 07/28/16 08:00 11:00 Temp 98.5 98.5 Pulse 78 Resp 20 B/P (MAP) 104/70 (81) Pulse Ox 92 O2 Delivery Nasal Cannula Room Air O2 Flow Rate 2.0 Intake and Output 07/27/16 07/27/16 07/28/16 15:00 23:00 07:00 Intake Total 500 ml 1250 ml 240 ml Balance 500 ml 1250 ml 240 ml SAUNDRA FORTUNE MD Jul 28, 2016 13:23
[2016-07-28] MEDS: INSULIN DETEMIR 300 UNITS/3 ML INSULN.PEN. SQ SCH (14:55)
[2016-07-28 15:00] VITALS: BP 99/64
[2016-07-28] MEDS ORDERED: INSULIN DETEMIR 300 UNITS/3 ML INSULN.PEN. SQ ONE ×2 (15:00→21:00)
[2016-07-28 19:00] VITALS: BP 113/81
[2016-07-28] MEDS: oxyCODONE IR 5 MG TABLET PO PRN (21:13)
[2016-07-28] MEDS: ZOLPIDEM 5 MG TABLET. PO SCH (22:01)
[2016-07-28 23:00] VITALS: BP 127/82
[2016-07-29] VITALS (16 sets, daily range): BP systolic 102–147; BP diastolic 73–95
[2016-07-29 03:29] LABS: ALBUMIN 2.6 g/dL (3.4-5.0); ALBUMIN/GLOBULIN RATIO 0.5 (1.0-1.7); CALCIUM 8.8 mg/dL (8.5-10.1); CREATININE 1.4 mg/dL (0.6-1.0); GFR 38.5; TOTAL BILIRUBIN 0.4 mg/dL (0.2-1.0)
[2016-07-29 03:59] LABS: HEMATOCRIT 38.5 % (36.0-47.0); HEMOGLOBIN 12.3 g/dL (12.0-15.5); RED BLOOD COUNT 4.32 x10^6/uL (3.50-5.40); RED CELL DISTRIBUTION WIDTH 15.4 % (11.5-14.5); WHITE BLOOD COUNT 11.1 x10^3/uL (4.0-11.0)
[2016-07-29] MEDS ORDERED: IV 1/2 NORMAL SALINE 1,000 ML IV SCH (06:00)
[2016-07-29] MEDS: PANTOPRAZOLE 40 MG TABLET.DR. PO SCH (07:34)
[2016-07-29] MEDS: INSULIN ASPART 300 UNITS/3 ML INSULN.PEN SQ SCH ×6 (08:00→18:03)
[2016-07-29] MEDS: PENTOXIFYLLINE ER 400 MG TABLET.ER. PO SCH ×2 (08:00→16:23)
[2016-07-29] MEDS: NICOTINE 14MG PATCH. TD SCH (08:09)
[2016-07-29] MEDS: DICLOFENAC SODIUM 1% TOPICAL GEL 100GM TUBE. TP SCH ×5 (08:10→21:22)
[2016-07-29] MEDS: DULoxetine HCL 30 MG CAPSULE.DR PO SCH (08:18)
[2016-07-29] MEDS: MELOXICAM 7.5 MG TABLET PO SCH (08:18)
[2016-07-29] MEDS: ASPIRIN ENTERIC COATED 81 MG TABLET.DR. PO SCH (08:18)
[2016-07-29] MEDS: GABAPENTIN 300 MG CAPSULE. PO SCH ×3 (08:18→21:23)
[2016-07-29] MEDS ORDERED: LIDOCAINE 2% 20 ML VIAL. ONE (10:03)
[2016-07-29] MEDS ORDERED: IODIXANOL 320 MG/ML 100 ML VIAL. ONE (10:03)
--- NOTE | 2016-07-29 11:38 | PDOC ---
MODERATE SEDATION ASSESSMENT RISKS/ALTERNATIVES Risks/Alternatives Risks and alternatives of this type of sedation and procedure discussed with: RISK/ALTERNATIVES: Patient H & P ON CHART H & P H & P on chart and reviewed for co-morbid conditions and appropriate labs. H&P ON CHART: Yes STATUS PREG STATUS ASSESSED: Yes MEDS/ALLERGIES REVIEWED Meds/Allergies Reviewed Medications and Allergies including time and route of recently administered narcotics and sedatives. MEDS/ALLERGIES REVIEWED: Yes ASA RATING ASA RATING: II AIRWAY ASSESSMENT Airway Assessment Airway patency, oral function limitations, presence of caps, crowns, dentures, partials, and ability to extend neck assessed. AIRWAY ASSESSMENT: Yes MALLAMPATI SCORE MALLAMPATI SCORE: II PRE-SEDATION ASSESSMENT PRE-SEDATION ASSESSMENT: Yes SAUNDRA FORTUNE MD Jul 29, 2016 11:37
[2016-07-29] MEDS ORDERED: MIDAZOLAM HCL/PF 5 MG/5 ML VIAL. ONE (11:43)
[2016-07-29] MEDS ORDERED: fentaNYL PF VIAL 250 MCG/5 ML VIAL ONE (11:43)
[2016-07-29] MEDS ORDERED: LIDOCAINE 2% 20 ML VIAL. IJ ONE (12:00)
[2016-07-29] MEDS ORDERED: IODIXANOL 320 MG/ML 100 ML VIAL. IART ONE (12:00)
[2016-07-29] MEDS ORDERED: fentaNYL PF VIAL 250 MCG/5 ML VIAL IV ONE (12:00)
[2016-07-29] MEDS ORDERED: MIDAZOLAM HCL/PF 5 MG/5 ML VIAL. IV ONE (12:00)
[2016-07-29] MEDS ORDERED: CONTRAST GIVEN MC PRN (12:00)
--- NOTE | 2016-07-29 13:03 | PDOC ---
SUBJECTIVE Subjective out for cath OBJECTIVE Vital Signs Vital Signs Date Time Temp Pulse Resp B/P (MAP) Pulse Ox O2 Delivery O2 Flow Rate FiO2 07/29/16 12:30 98.1 77 20 107/78 (88) 95 Nasal Cannula 98.1 07/29/16 12:15 77 16 95 Room Air 07/29/16 12:14 16 95 Room Air 07/29/16 10:35 98.1 83 18 127/85 (99) 97 Nasal Cannula 2.0 98.1 07/29/16 08:00 Nasal Cannula 2.0 07/29/16 07:15 97.5 86 18 147/93 (111) 97 Nasal Cannula 2.0 97.5 07/29/16 03:00 96.1 81 18 133/84 (100) 98 Nasal Cannula 2.0 96.1 07/28/16 23:00 98.6 88 18 127/82 (97) 95 Nasal Cannula 2.0 98.6 07/28/16 22:13 18 98 Nasal Cannula 2.0 07/28/16 21:13 20 97 Nasal Cannula 2.0 07/28/16 20:00 Nasal Cannula 2.0 07/28/16 19:00 98.8 92 18 113/81 (92) 97 Nasal Cannula 2.0 98.8 07/28/16 15:00 98.2 89 18 99/64 (76) 94 Nasal Cannula 2.0 98.2 I & O Intake and Output 07/29/16 07:00 Intake Total 820 ml Balance 820 ml Intake Oral 820 ml # Voids 5 PHYSICAL EXAM Physical Exam no change ASSESSMENT/PLAN Assessment/Plan 1- new acute dsystolic CHF with EF 25 % and bilateral pleural effusion, cardiac cath today 2 Hypoglycemia and recent weight loss. adjusting insulin BS better 3. Low-grade temperature, better without antibiotics await cultures appreciate ID help 4. Elevated sedimentation rate but improved this admit 5. Weight loss. 6. Diabetes mellitus type 2, insulin requiring. 7. Coronary artery disease. 8. Peripheral vascular disease, rather severe for her age. 9. Osteoarthritis. Problems: COMMENT Lab Laboratory Tests Test 07/28/16 16:53 07/28/16 20:40 07/29/16 02:30 07/29/16 07:15 Glucose (Fingerstick) 75 mg/dL (70-99) 222 mg/dL (70-99) 277 mg/dL (70-99) White Blood Count 11.1 x10^3/uL (4.0-11.0) Red Blood Count 4.32 x10^6/uL (3.50-5.40) Hemoglobin 12.3 g/dL (12.0-15.5) Hematocrit 38.5 % (36.0-47.0) Mean Corpuscular Volume 89 fL (79-100) Mean Corpuscular Hemoglobin 29 pg (25-35) Mean Corpuscular Hemoglobin Concent 32 g/dL (31-37) Red Cell Distribution Width 15.4 % (11.5-14.5) Platelet Count 430 x10^3/uL (140-400) Sodium Level 135 mmol/L (136-145) Potassium Level 4.0 mmol/L (3.5-5.1) Chloride Level 98 mmol/L (98-107) Carbon Dioxide Level 33 mmol/L (21-32) Anion Gap 4 (6-14) Blood Urea Nitrogen 18 mg/dL (7-20) Creatinine 1.4 mg/dL (0.6-1.0) Estimated GFR (Cockcroft-Gault) 38.5 BUN/Creatinine Ratio 13 (6-20) Glucose Level 246 mg/dL (70-99) Calcium Level 8.8 mg/dL (8.5-10.1) Total Bilirubin 0.4 mg/dL (0.2-1.0) Aspartate Amino Transf (AST/SGOT) 39 U/L (15-37) Alanine Aminotransferase (ALT/SGPT) 25 U/L (14-59) Alkaline Phosphatase 163 U/L (46-116) Total Protein 8.0 g/dL (6.4-8.2) Albumin 2.6 g/dL (3.4-5.0) Albumin/Globulin Ratio 0.5 (1.0-1.7) JOSH GANT MD Jul 29, 2016 13:03
--- NOTE | 2016-07-29 15:28 | PDOC2 ---
CONSULT Date of Consult Date of Consult DATE: 07/29/16 TIME: 14:52 Reason for Consult Reason for Consult: 3 vessel CAD Referring Physician Referring Physician: Dr. Power Conteh Identification/Chief Complaint Chief Complaint hypoglycemia Source Source: Chart review, Patient History of Present Illness Reason for Visit: 60 year old female admitted 07/25/2016 through the ER with profound hypoglycemia and BS off 11 treated en route by EMS and was still low on presentation. CXR demonstrated CHF and patient was treated with IV diuretics and echo obtained. This demonstrated depressed LV function with ER of 25%; severe aortic stenosis with GLENN of 0.44 cm2 and moderate pulmonary HTN with a PA of 42 mm Hg. She underwent cardiac cath for further evaluation today and was found to have 3 vessel CAD. Reason for Visit: ? cardiac surgery candidate Past Medical History Cardiovascular: CAD, CHF (systolic and diastolic), HTN, Aortic stenosis ( severe with GLENN of 0.44 cm2), Other (PVD with AAA repair and aortobifemoral bypass graft; CT scan 2014 demonstrated occlusion of grand traverse distal abdominal aorta with patent graft and bilateral SFA occlusion with reconstitution at the adductor canals) Pulmonary: COPD, Pulmonary embolus, Other (obstructive sleep apnea - inconsistent use of CPAP) CENTRAL NERVOUS SYSTEM: Other (denies) GI: No pertinent hx Heme/Onc: No pertinent hx Hepatobiliary: No pertinent hx Psych: No pertinent hx Musculoskeletal: Osteoarthritis (with DDD and multiple compressions fractures from about 30 years ago after fall from horse) Rheumatologic: Fibromyalgia Infectious disease: Other (elevated ESR -- > 100, 03/2016 and down to 39 on ) ENT: No pertinent hx Renal/: No pertinent hx Endocrine: Diabetes (type II, insulin requiring; poor control ) Dermatology: No pertinent hx Past Surgical History Past Surgical History: Appendectomy, Cholecystectomy, Hysterectomy, Other (AAA (?) aorto-bifemoral bypass graft; stents to LE prior to bypass grafting) Family History Family History: Alcohol Abuse, Cancer (liver), Hypertension Social History Social History 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 <1 pack per day (max amount 1 ppd; has smoked X 30 years) ALCOHOL: none Drugs: None Lives: Alone Current Problem List Problem List Problems Medical Problems: (1) Altered mental status Status: Acute Current Medications Current Medications Current Medications Dextrose/Sodium Chloride 1,000 ml @ 200 mls/hr 1X ONCE IV Last administered on 07/25/16 12:40; Start 07/25/16 at 12:15; Stop 07/26/16 at 10:49; Status DC Dextrose (Dextrose 50%-Water Syringe) 25 gm 1X ONCE IV Last administered on 13:08; Start 07/25/16 at 13:00; Stop 07/25/16 at 13:03; Status DC Dextrose (Dextrose 50%-Water Syringe) 25 gm 1X ONCE IV Last administered on 14:19; Start 07/25/16 at 14:15; Stop 07/25/16 at 14:16; Status DC Ondansetron HCl (Zofran) 4 mg PRN Q8HRS PRN IV NAUSEA/VOMITING Last administered on 07/26/16 09:36; Start 07/25/16 at 15:00; Stop 07/26/16 at 14:59 ; Status DC Potassium Chloride/Dextrose/ Sod Cl 1,000 ml @ 75 mls/hr [id number] IV Last administered on 07/26/16 21:21; Start 07/25/16 at 19:15; Stop 07/27/16 at 11:18 ; Status DC Aspirin (Ecotrin) 81 mg DAILY PO Last administered on 07/28/16 08:28; Start at 09:00 Diclofenac Sodium (Voltaren) 1 saloni QID TP Last administered on 07/28/16 21:15 ; Start 07/25/16 at 21:00 Gabapentin (Neurontin) 600 mg TID PO Last administered on 07/28/16 21:14; Start 07/25/16 at 21:00 Nicotine (Nicoderm Cq 14mg) 1 patch DAILY TD Last administered on 07/29/16 08: 09; Start 07/25/16 at 19:30 Pantoprazole Sodium (Protonix) 40 mg DAILYAC PO Last administered on 07/29/16 07:34; Start 07/26/16 at 07:30 Pentoxifylline (TRENtal) 400 mg BIDWMEALS PO Last administered on 07/28/16 17: 01; Start 07/26/16 at 08:00 Duloxetine HCl (Cymbalta) 60 mg DAILY PO Last administered on 07/28/16 08:29; Start 07/26/16 at 09:00 Meloxicam (Mobic) 15 mg DAILY PO Last administered on 07/28/16 08:28; Start at 09:00 Oxycodone HCl (Roxicodone) 20 mg PRN QHS PRN PO PAIN Last administered on 20:19; Start 07/25/16 at 21:00; Stop 07/26/16 at 15:30; Status DC Zolpidem Tartrate (Ambien) 5 mg QHS PO Last administered on 07/28/16 22:01; Start 07/25/16 at 21:00 Zolpidem Tartrate (Ambien) 5 mg PRN QHS PRN PO INSOMNIA; Start 07/25/16 at 19: 30 Sodium Chloride 1,000 ml @ 75 mls/hr [id number] IV Last administered on 09:34; Start 07/26/16 at 11:00; Stop 07/27/16 at 11:18; Status DC Insulin Aspart (NovoLOG) 0-5 UNITS TIDWMEALS SQ Last administered on 07/28/16 12:13; Start 07/26/16 at 12:00 Dextrose (Dextrose 50%-Water Syringe) 12.5 gm PRN Q15MIN PRN IV SEE COMMENTS; Start 07/26/16 at 11:00 Insulin Detemir (Levemir) 20 units QHS SQ ; Start 07/26/16 at 21:00; Stop at 13:26; Status DC Oxycodone/ Acetaminophen (Percocet 5/325) 1 tab PRN Q4HRS PRN PO PAIN Last administered on 07/27/16 22:41; Start 07/26/16 at 15:30 Oxycodone HCl (Roxicodone) 20 mg PRN Q8HRS PRN PO PAIN BREAKTHROUGH Last administered on 07/28/16 21:13; Start 07/26/16 at 15:30 Furosemide (Lasix) 40 mg DAILY IVP Last administered on 07/28/16 08:27; Start 07/27/16 at 12:00; Stop 07/28/16 at 12:48; Status DC Potassium Chloride (Klor-Con) 20 meq [id number] PO Last administered on 08:28; Start 07/27/16 at 12:00; Stop 07/28/16 at 12:48; Status DC Insulin Detemir (Levemir) 30 units QHS SQ ; Start 07/27/16 at 21:00; Stop at 12:53; Status DC Insulin Aspart (NovoLOG) 10 units TIDAC SQ Last administered on 07/28/16 12:12 ; Start 07/27/16 at 16:30; Stop 07/28/16 at 12:53; Status DC Insulin Aspart (NovoLOG) 5 units TIDAC SQ Last administered on 07/29/16 08:16 ; Start 07/28/16 at 16:30 Insulin Detemir (Levemir) 25 units QHS SQ ; Start 07/28/16 at 21:00 Sodium Chloride 1,000 ml @ 60 mls/hr [id number] IV Last administered on 06:25; Start 07/29/16 at 06:00; Stop 07/29/16 at 18:00 Insulin Detemir (Levemir) 15 units 1X ONCE SQ ; Start 07/28/16 at 15:00; Stop 07/28/16 at 15:01; Status Cancel Insulin Detemir (Levemir) 15 units 1X ONCE SQ Last administered on 07/28/16 21:20; Start 07/28/16 at 21:00; Stop 07/28/16 at 21:01; Status DC Iodixanol (Visipaque 320) 100 ml STK-MED ONCE .ROUTE ; Start 07/29/16 at 10:03; Stop 07/29/16 at 10:04; Status DC Lidocaine HCl 20 ml STK-MED ONCE .ROUTE ; Start 07/29/16 at 10:03; Stop at 10:04; Status DC Heparin Sodium/ Sodium Chloride 500 ml @ As Directed STK-MED ONCE .ROUTE ; Start 07/29/16 at 10:03; Stop 07/29/16 at 10:04; Status DC Fentanyl Citrate (Fentanyl 5ml Vial) 250 mcg STK-MED ONCE .ROUTE ; Start at 11:43; Stop 07/29/16 at 11:44; Status DC Midazolam HCl (Versed) 5 mg STK-MED ONCE .ROUTE ; Start 07/29/16 at 11:43; Stop 07/29/16 at 11:44; Status DC Heparin Sodium/ Sodium Chloride 1,000 unit 1X ONCE IART Last administered on 12:13; Start 07/29/16 at 12:00; Stop 07/29/16 at 12:01; Status DC Midazolam HCl (Versed) 5 mg 1X ONCE IV Last administered on 07/29/16 12:14; Start 07/29/16 at 12:00; Stop 07/29/16 at 12:01; Status DC Fentanyl Citrate (Fentanyl 5ml Vial) 100 mcg 1X ONCE IV Last administered on 12:14; Start 07/29/16 at 12:00; Stop 07/29/16 at 12:01; Status DC Iodixanol (Visipaque 320) 100 ml 1X ONCE IART Last administered on 07/29/16 12:13; Start 07/29/16 at 12:00; Stop 07/29/16 at 12:01; Status DC Lidocaine HCl 20 ml 1X ONCE IJ Last administered on 07/29/16 12:13; Start at 12:00; Stop 07/29/16 at 12:01; Status DC Info (Do NOT chart on this entry -- for MONITORING) 1 each PRN DAILY PRN MC SEE COMMENTS; Start 07/29/16 at 12:00; Stop 07/31/16 at 11:59 Active Scripts Active Pantoprazole Sodium 40 Mg Tablet. 40 Mg PO DAILYAC 30 Days Cymbalta (Duloxetine Hcl) 60 Mg Capsule. 60 Mg PO DAILY 30 Days Reported Gabapentin 600 Mg Tablet 600 Mg PO TID Oxycodone Hcl 20 Mg Tablet 20 Mg PO QHS PRN Ambien (Zolpidem Tartrate) 10 Mg Tablet 1 Tab PO QHS NICODERM CQ 14mg (Nicotine) 1 Each Patch.td24 1 Patch TP DAILY Meloxicam 15 Mg Tablet 1 Tab PO DAILY Novolog Flexpen (Insulin Aspart) 100 Unit/1 Ml Insuln.pen 3 Unit SQ TIDWMEALS Pentoxifylline 400 Mg Tablet.er 400 Mg PO BIDWMEALS Aspir-Low (Aspirin) 81 Mg Tablet. 1 Tab PO DAILY Voltaren (Diclofenac Sodium) 100 Gm Gel..gram. 1 Gm TP QID Levemir (Insulin Detemir) 100 Unit/1 Ml Vial 26 Unit SQ HS Allergies Allergies: Coded Allergies: I S O L A T I O N *CONTACT* (Verified Allergy, Unknown, 03/26/16) mrsa hydrocodone (Verified Adverse Reaction, Intermediate, LOOPY, 03/11/15) ROS General: No: Chills, Night Sweats, Fatigue, Malaise, Appetite, Other PSYCHOLOGICAL ROS: No: Anxiety, Behavioral Disorder, Concentration difficultie , Decreased libido, Depression, Disorientation, Hallucinations, Hostility, Irritablity, Memory difficulties, Mood Swings, Obsessive thoughts, Physical abuse, Sexual abuse, Sleep disturbances, Suicidal ideation, Other Eyes: No Blurry vision, No Decreased vision, No Double vision, No Dry eyes, No Excessive tearing, No Eye Pain, No Itchy Eyes, No Loss of vision, No Photophobia , No Scotomata, No Uses contacts, No Uses glasses, No Other HEENT: No: Heacaches, Visual Changes, Hearing change, Nasal congestion, Nasal discharge, Oral lesions, Sinus pain, Sore Throat, Epistaxis, Sneezing, Snoring, Tinnitus, Vertigo, Vocal changes, Other ALLERGY AND IMMUNOLOGY: No: Hives, Insect Bite Sensitivity, Itchy/Watery Eyes, Nasal Congestion, Post Nasal Drip, Seasonal Allergies, Other Hematological and Lymphatic: No: Bleeding Problems, Blood Clots, Blood Transfusions, Brusing, Night Sweats, Pallor, Swollen Lymph Nodes, Other ENDOCRINE: No: Breast Changes, Galactorrhea, Hair Pattern Changes, Hot Flashes , Malaise/lethargy, Mood Swings, Palpitations, Polydipsia/polyuria, Skin Changes , Temperature Intolerance, Unexpected Weight Changes, Other Respiratory: No: Cough, Hemoptysis, Orthopnea, Pleuritic Pain, Shortness of breath, SOB with excertion, Sputum Changes, Stridor, Tachypnea, Wheezing, Other Cardiovascular: yes Edema (ankles only), No Chest Pain, No Palpitations, No Orthopnea, No Paroxysmal Noc. Dyspnea, No Lt Headedness, No Other Gastrointestinal: No Nausea, No Vomiting, No Abdominal Pain, No Diarrhea, No Constipation, No Melena, No Hematochezia, No Other Genitourinary: No Dysuria, No Frequency, No Incontinence, No Hematuria, No Retention, No Discharge, No Urgency, No Pain, No Flank Pain, No Other Musculoskeletal: Yes Other (back pain - chronic ) Neurological: No Behavorial Changes, No Bowel/Bladder ControlChng, No Confusion , No Dizziness, No Gait Disturbance, No Headaches, No Impaired Coord/balance, No Memory Loss, No Numbness/Tingling, No Seizures, No Speech Problems, No Tremors, No Visual Changes, No Weakness, No Other Skin: No Dry Skin, No Eczema, No Hair Changes, No Lumps, No Mole Changes, No Mottling, No Nail Changes, No Pruritus, No Rash, No Skin Lesion Changes, No Other, No Acne Physical Exam General: Alert, Oriented X3, Cooperative, No acute distress HEENT: Atraumatic Lungs: Clear to auscultation, Normal air movement Heart: Normal S1, Normal S2, Other (2/6 VALERIE throughout precordium with radiation to bilateral carotids) Abdomen: Normal bowel sounds, Soft Extremities: No edema, Other (per) Skin: No rashes Neuro: Normal speech Psych/Mental Status: Mood NL MUSCULOSKELETAL: Osteoarthritic changes both hands Vitals VITALS Vital Signs Date Time Temp Pulse Resp B/P (MAP) Pulse Ox O2 Delivery O2 Flow Rate FiO2 07/29/16 12:30 98.1 77 20 107/78 (88) 95 Nasal Cannula 98.1 07/29/16 10:35 2.0 Labs Labs Laboratory Tests Test 07/27/16 16:10 07/27/16 20:39 07/27/16 21:00 07/27/16 21:44 Glucose (Fingerstick) 245 mg/dL (70-99) 54 mg/dL (70-99) 58 mg/dL (70-99) 73 mg/dL (70-99) Test 07/27/16 22:55 07/28/16 02:13 07/28/16 06:00 07/28/16 08:00 Glucose (Fingerstick) 103 mg/dL (70-99) 124 mg/dL (70-99) 143 mg/dL (70-99) White Blood Count 10.5 x10^3/uL (4.0-11.0) Red Blood Count 4.00 x10^6/uL (3.50-5.40) Hemoglobin 11.5 g/dL (12.0-15.5) Hematocrit 34.8 % (36.0-47.0) Mean Corpuscular Volume 87 fL (79-100) Mean Corpuscular Hemoglobin 29 pg (25-35) Mean Corpuscular Hemoglobin Concent 33 g/dL (31-37) Red Cell Distribution Width 15.3 % (11.5-14.5) Platelet Count 371 x10^3/uL (140-400) Sodium Level 137 mmol/L (136-145) Potassium Level 4.3 mmol/L (3.5-5.1) Chloride Level 102 mmol/L (98-107) Carbon Dioxide Level 31 mmol/L (21-32) Anion Gap 4 (6-14) Blood Urea Nitrogen 15 mg/dL (7-20) Creatinine 1.3 mg/dL (0.6-1.0) Estimated GFR (Cockcroft-Gault) 41.9 BUN/Creatinine Ratio 12 (6-20) Glucose Level 158 mg/dL (70-99) Calcium Level 8.8 mg/dL (8.5-10.1) Total Bilirubin 0.4 mg/dL (0.2-1.0) Aspartate Amino Transf (AST/SGOT) 45 U/L (15-37) Alanine Aminotransferase (ALT/SGPT) 26 U/L (14-59) Alkaline Phosphatase 133 U/L (46-116) Total Protein 7.5 g/dL (6.4-8.2) Albumin 2.6 g/dL (3.4-5.0) Albumin/Globulin Ratio 0.5 (1.0-1.7) Test 07/28/16 10:53 07/28/16 16:53 07/28/16 20:40 07/29/16 02:30 Glucose (Fingerstick) 264 mg/dL (70-99) 75 mg/dL (70-99) 222 mg/dL (70-99) White Blood Count 11.1 x10^3/uL (4.0-11.0) Red Blood Count 4.32 x10^6/uL (3.50-5.40) Hemoglobin 12.3 g/dL (12.0-15.5) Hematocrit 38.5 % (36.0-47.0) Mean Corpuscular Volume 89 fL (79-100) Mean Corpuscular Hemoglobin 29 pg (25-35) Mean Corpuscular Hemoglobin Concent 32 g/dL (31-37) Red Cell Distribution Width 15.4 % (11.5-14.5) Platelet Count 430 x10^3/uL (140-400) Sodium Level 135 mmol/L (136-145) Potassium Level 4.0 mmol/L (3.5-5.1) Chloride Level 98 mmol/L (98-107) Carbon Dioxide Level 33 mmol/L (21-32) Anion Gap 4 (6-14) Blood Urea Nitrogen 18 mg/dL (7-20) Creatinine 1.4 mg/dL (0.6-1.0) Estimated GFR (Cockcroft-Gault) 38.5 BUN/Creatinine Ratio 13 (6-20) Glucose Level 246 mg/dL (70-99) Calcium Level 8.8 mg/dL (8.5-10.1) Total Bilirubin 0.4 mg/dL (0.2-1.0) Aspartate Amino Transf (AST/SGOT) 39 U/L (15-37) Alanine Aminotransferase (ALT/SGPT) 25 U/L (14-59) Alkaline Phosphatase 163 U/L (46-116) Total Protein 8.0 g/dL (6.4-8.2) Albumin 2.6 g/dL (3.4-5.0) Albumin/Globulin Ratio 0.5 (1.0-1.7) Test 07/29/16 07:15 Glucose (Fingerstick) 277 mg/dL (70-99) Laboratory Tests Test 07/28/16 16:53 07/28/16 20:40 07/29/16 02:30 07/29/16 07:15 Glucose (Fingerstick) 75 mg/dL (70-99) 222 mg/dL (70-99) 277 mg/dL (70-99) White Blood Count 11.1 x10^3/uL (4.0-11.0) Red Blood Count 4.32 x10^6/uL (3.50-5.40) Hemoglobin 12.3 g/dL (12.0-15.5) Hematocrit 38.5 % (36.0-47.0) Mean Corpuscular Volume 89 fL (79-100) Mean Corpuscular Hemoglobin 29 pg (25-35) Mean Corpuscular Hemoglobin Concent 32 g/dL (31-37) Red Cell Distribution Width 15.4 % (11.5-14.5) Platelet Count 430 x10^3/uL (140-400) Sodium Level 135 mmol/L (136-145) Potassium Level 4.0 mmol/L (3.5-5.1) Chloride Level 98 mmol/L (98-107) Carbon Dioxide Level 33 mmol/L (21-32) Anion Gap 4 (6-14) Blood Urea Nitrogen 18 mg/dL (7-20) Creatinine 1.4 mg/dL (0.6-1.0) Estimated GFR (Cockcroft-Gault) 38.5 BUN/Creatinine Ratio 13 (6-20) Glucose Level 246 mg/dL (70-99) Calcium Level 8.8 mg/dL (8.5-10.1) Total Bilirubin 0.4 mg/dL (0.2-1.0) Aspartate Amino Transf (AST/SGOT) 39 U/L (15-37) Alanine Aminotransferase (ALT/SGPT) 25 U/L (14-59) Alkaline Phosphatase 163 U/L (46-116) Total Protein 8.0 g/dL (6.4-8.2) Albumin 2.6 g/dL (3.4-5.0) Albumin/Globulin Ratio 0.5 (1.0-1.7) Images Images CXR: 07/26/2016: IMPRESSION: Worsening right pleural effusion and interval development of a small left pleural effusion with moderate bibasilar infiltrates, most likely due to congestive heart failure. 07/26/2016: TTE: Left ventricle systolic function is moderate to severely impaired. The Ejection Fraction is 25%. Transmitral Doppler flow pattern is restrictive diastolic dysfunction. There is mild concentric left ventricular hypertrophy. The right ventricular systolic function is moderately decreased The left atrium size is normal. The right atrium size is normal. Calculated aortic valve area is 0.44 cm2 with maximum pressure gradient of 38 mmHg and mean pressure gradient of 20 mmHg. Doppler and color-flow analysis revealed aortic stenosis. The aortic valve is calcified and displays decreased opening. There is partial fusion of 2 of the cusps with a lot of calcifications Doppler and Color Flow revealed trace aortic regurgitation. Calculated aortic valve area is 0.44 cm2 with maximum pressure gradient of 38 mmHg and mean pressure gradient of 20 mmHg. Doppler and color-flow analysis revealed aortic stenosis. Doppler and Color-flow revealed trace mitral regurgitation. The mitral valve is calcified but opens well. Doppler and Color Flow revealed mild tricuspid regurgitation. There is moderate pulmonary hypertension. The PA pressure was estimated at 42 mmHg. Doppler and Color Flow revealed severe pulmonic valvular regurgitation. There is a small circumferential pericardial effusion. Assessment/Plan Assessment/Plan 1. 3 vessel CAD no angina 2. ischemic CMP with LVEF ~ 25% 3. severe with GLENN 0.44 cm2 (echo) max pressure gradient = 38; mean pressure gradient = 20 2 cusps of valve partially fused also with severe MD 4. severe PAD grand traverse distal abd aorta occluded with patent AoBifem bypass occl SFA bilaterally with reconstitution at adductor canals 5. COPD with PUSHPA and moderate pulmonary HTN persistent tobacco abuse 6. DM, II, insulin requiring poorly controlled - brittle MARTHA PEREIRA APRN Jul 29, 2016 15:28
[2016-07-29] MEDS: oxyCODONE IR 5 MG TABLET PO PRN (16:24)
--- NOTE | 2016-07-29 17:07 | RAD ---
Examination: 2 views of the chest History: History of congestive heart failure Comparison: 07/26/2016 Findings: Low lung volumes accentuate heart size and pulmonary vascularity. Right lung base airspace opacity likely pneumonia or atelectasis and right pleural effusion, grossly similar to prior exam. Trace left pleural effusion is identified. Unchanged cardiomegaly. Prominent appearing bilateral interstitial lung markings likely congestive changes grossly similar to prior exam. Impression: 1. Findings of congestive changes and right lung base airspace opacity likely pneumonia or atelectasis with right pleural effusion grossly unchanged compared to prior exam. 2. Trace left pleural effusion.
--- NOTE | 2016-07-29 19:04 | PDOC4 ---
PROCEDURE Procedure PROCEDURE NOTE Unable to sign on to [employer] therefore the procedure note is being dictated into [employer] Procedure note: Procedure: Left heart catheterization with angiography and ventriculography Preoperative diagnosis: Cardiomyopathy, peripheral vascular disease CHF, valvular heart disease Postoperative diagnosis: Cardiomyopathy peripheral vascular disease, CHF, severe coronary artery disease, valvular heart disease Procedure note: After obtaining informed consent the patient was brought to the [facility] [facility]. The right groin area was prepped and draped in the usual fashion anatomy was identified on special palpation the area was infiltrated with Xylocaine to obtain topical anesthesia and then using Seldinger technique a Cordis sheath was inserted into the femoral artery. The left Nan catheter was then utilized to engage the left coronary os and views of the left coronary artery were then done. A right Nan catheter was then utilized to engage the right coronary os and views of the right coronary artery were then done. A pigtail catheter was then utilized to cross the aortic valve into the left ventricle and a left ventriculogram was then done. Following that pullback pressures were done from the LV to the aorta and the catheter was then removed. An Angio-Seal was then deployed in the femoral artery after which appeared to be no active bleeding. The patient appeared to be stable therefore she was transferred back to the room in satisfactory condition after tolerating the procedure rather well. Findings: Coronaries: The left main ostium has about a 30% plaquing. The distal part of the left main has about 40% plaquing. The ostial LAD has about 80% stenosis. The mid segment of the LAD is about 90% stenosed involving the takeoff of the second diagonal. The circumflex has a 95% stenosis in the mid segment. The right coronary artery is 100% occluded in the proximal to mid segment and is receiving collaterals from the left. The left ventriculogram was evaluated and the LV shows to be dilated and there is global hypokinesis with an ejection fractionestimated to be around 20%. The left ventricular end-diastolic pressure was 22 mmHg. On the pullback it was difficult to assess for a gradient because the moment we started pulling on the catheter the patient had a lot of beats of V. tach until the catheter was in the aorta therefore an accurate measurement of the gradient across the aortic valve could not be obtained. Impression: This patient has a severe ischemic cardiomyopathy with severe triple vessel coronary artery bypass and may also have valvular heart disease with aortic stenosis that was seen in the echocardiogram. We could not assess accurately the severity of the gradient across the aortic valve by this study. I recommend to obtain a surgical consult in view of the findings. SAUNDRA FORTUNE MD Jul 29, 2016 19:04
[2016-07-29] MEDS: oxyCODONE/APAP 5/325 1 TAB TABLET PO PRN (21:23)
[2016-07-29] MEDS: ZOLPIDEM 5 MG TABLET. PO SCH (21:23)
[2016-07-29] MEDS: INSULIN DETEMIR 300 UNITS/3 ML INSULN.PEN. SQ SCH (21:31)
[2016-07-30 03:20] VITALS: BP 194/83
[2016-07-30 04:36] LABS: HEMATOCRIT 32.9 % (36.0-47.0); HEMOGLOBIN 10.8 g/dL (12.0-15.5); RED BLOOD COUNT 3.75 x10^6/uL (3.50-5.40); RED CELL DISTRIBUTION WIDTH 15.5 % (11.5-14.5); WHITE BLOOD COUNT 10.2 x10^3/uL (4.0-11.0)
[2016-07-30 04:44] LABS: CALCIUM 8.7 mg/dL (8.5-10.1); CREATININE 1.1 mg/dL (0.6-1.0); GFR 50.8; POTASSIUM 3.8 mmol/L (3.5-5.1)
[2016-07-30 07:00] VITALS: BP 146/89
[2016-07-30] MEDS: INSULIN ASPART 300 UNITS/3 ML INSULN.PEN SQ SCH ×5 (07:30→16:30)
[2016-07-30] MEDS ORDERED: DEXTROSE ORAL GEL 15 GM TUBE. ONE ×2 (08:00)
[2016-07-30] MEDS ORDERED: FUROSEMIDE 40 MG/4 ML VIAL. IVP ONE (09:30)
[2016-07-30] MEDS: GABAPENTIN 300 MG CAPSULE. PO SCH ×3 (09:38→22:03)
[2016-07-30] MEDS: DULoxetine HCL 30 MG CAPSULE.DR PO SCH (09:38)
[2016-07-30] MEDS: ASPIRIN ENTERIC COATED 81 MG TABLET.DR. PO SCH (09:39)
--- NOTE | 2016-07-30 09:39 | PDOC ---
Provider Note Provider Note The Pt is clinically stable, remains off oxygen SR 88 VSS cxr from yesterday show right pleural effusion would like to check BNP level and diurese a little before discharge. in reviewing her surface echo, the LVOT appears quite small and is measured at 1.78 cm That is small for valve replacement. I would like to get a closer look at the aortic valve and would recommend JENNIFER. The Pt would like to go home at some point soon to take care of a few matters will discuss with DALTON Santillan MD Jul 30, 2016 09:39
[2016-07-30] MEDS: MELOXICAM 7.5 MG TABLET PO SCH (09:40)
[2016-07-30] MEDS: PENTOXIFYLLINE ER 400 MG TABLET.ER. PO SCH ×2 (09:41→18:31)
[2016-07-30] MEDS: PANTOPRAZOLE 40 MG TABLET.DR. PO SCH (09:41)
[2016-07-30] MEDS: NICOTINE 14MG PATCH. TD SCH (09:41)
[2016-07-30] MEDS: DICLOFENAC SODIUM 1% TOPICAL GEL 100GM TUBE. TP SCH ×4 (09:49→22:07)
[2016-07-30 11:00] VITALS: BP 175/107
--- NOTE | 2016-07-30 13:37 | PDOC ---
SUBJECTIVE Subjective feels ok , no SOB , no CP OBJECTIVE Objective VSS Vital Signs Vital Signs Date Time Temp Pulse Resp B/P (MAP) Pulse Ox O2 Delivery O2 Flow Rate FiO2 07/30/16 11:00 98.2 95 20 175/107 (129) 91 Room Air 98.2 07/30/16 08:00 Room Air 07/30/16 07:00 98.5 88 20 146/89 (108) 94 Nasal Cannula 2.0 98.5 07/30/16 03:20 98.3 84 20 194/83 (120) 95 Nasal Cannula 2.0 98.3 07/29/16 23:20 98.6 84 18 124/82 (96) 95 Nasal Cannula 2.0 98.6 07/29/16 22:23 18 92 Nasal Cannula 2.0 07/29/16 21:23 20 92 Nasal Cannula 2.0 07/29/16 20:10 Room Air 07/29/16 19:20 98.8 89 22 116/77 (90) 92 Room Air 98.8 07/29/16 17:24 99 Nasal Cannula 2.0 07/29/16 16:24 16 99 Nasal Cannula 2.0 07/29/16 15:46 98.4 88 22 134/89 (104) 99 Nasal Cannula 98.4 07/29/16 15:00 145/95 (112) 07/29/16 14:30 140/91 (107) 07/29/16 14:00 126/83 (97) 07/29/16 13:45 118/83 (95) I & O Intake and Output 07/30/16 07:00 Intake Total 800 ml Balance 800 ml Intake Oral 800 ml # Voids 4 PHYSICAL EXAM Physical Exam lungs clear Heart RRR abd soft ext no edema ASSESSMENT/PLAN Assessment/Plan 1- severe CAD on cath may need CABG 2- Aortic stenosis plans for JENNIFER noted per [facility] request 3-Cardiomyopathy ischemic agree with dueretics and monitoring 4- pleural effusions 5- hypoglycemia again this AM adjusting insulin plan adjust medication and JENNIFER then home wants to get some things organized before proceeding with surgery Problems: COMMENT Lab Laboratory Tests Test 07/29/16 17:15 07/29/16 20:51 07/30/16 03:55 07/30/16 07:57 Glucose (Fingerstick) 243 mg/dL (70-99) 193 mg/dL (70-99) 27 mg/dL (70-99) White Blood Count 10.2 x10^3/uL (4.0-11.0) Red Blood Count 3.75 x10^6/uL (3.50-5.40) Hemoglobin 10.8 g/dL (12.0-15.5) Hematocrit 32.9 % (36.0-47.0) Mean Corpuscular Volume 88 fL (79-100) Mean Corpuscular Hemoglobin 29 pg (25-35) Mean Corpuscular Hemoglobin Concent 33 g/dL (31-37) Red Cell Distribution Width 15.5 % (11.5-14.5) Platelet Count 385 x10^3/uL (140-400) Sodium Level 141 mmol/L (136-145) Potassium Level 3.8 mmol/L (3.5-5.1) Chloride Level 104 mmol/L (98-107) Carbon Dioxide Level 33 mmol/L (21-32) Anion Gap 4 (6-14) Blood Urea Nitrogen 18 mg/dL (7-20) Creatinine 1.1 mg/dL (0.6-1.0) Estimated GFR (Cockcroft-Gault) 50.8 Glucose Level 118 mg/dL (70-99) Calcium Level 8.7 mg/dL (8.5-10.1) AB-Tle-H-Type Natriuretic Peptide 92569 pg/mL (0-124) Test 07/30/16 08:25 07/30/16 11:06 Glucose (Fingerstick) 84 mg/dL (70-99) 213 mg/dL (70-99) JOSH GANT MD Jul 30, 2016 13:37
[2016-07-30 15:00] VITALS: BP 116/79
[2016-07-30] MEDS: oxyCODONE/APAP 5/325 1 TAB TABLET PO PRN ×2 (15:01→23:48)
--- NOTE | 2016-07-30 16:05 | CARD ---
APPROVED REPORT PROCEDURE NARRATIVE PROCEDURE NOTE PROCEDURE Procedure PROCEDURE NOTE Unable to sign on to Inf[employer] therefore the procedure note is being dictated into Best[employer] Procedure note: Procedure: Left heart catheterization with angiography and ventriculography Preoperative diagnosis: Cardiomyopathy, peripheral vascular disease CHF, valvular heart disease Postoperative diagnosis: Cardiomyopathy peripheral vascular disease, CHF, severe coronary artery dise ase, valvular heart disease Procedure note: After obtaining informed consent the patient was brought to the [facility]. The right groin area was prepped and draped in the usual fashion anatomy was identified on special pa lpation the area was infiltrated with Xylocaine to obtain topical anesthesia and then using Seldinger technique a Cordis sheath was inserted into the femoral artery. The left Nan catheter was then utilized to engage the left coronary os and views of the left maria guadalupe nary artery were then done. A right Nan catheter was then utilized to engage the right coronary os and views of the right cor onary artery were then done. A pigtail catheter was then utilized to cross the aortic valve into the left ventricle and a left louise triculogram was then done. Following that pullback pressures were done from the LV to the aorta and the catheter was then remove d. An Angio-Seal was then deployed in the femoral artery after which appeared to be no active bleeding. The patient appeared to be stable therefore she was transferred back to the room in satisfactory cond ition after tolerating the procedure rather well. Findings: Coronaries: The left main ostium has about a 30% plaquing. The distal part of the left main has about 40% plaquing. The ostial LAD has about 80% stenosis. The mid segment of the LAD is about 90% stenose d involving the takeoff of the second diagonal. The circumflex has a 95% stenosis in the mid segment. The right coronary artery is 100% occluded in the proximal to mid segment and is receiving collatera ls from the left. The left ventriculogram was evaluated and the LV shows to be dilated and there is global hypokinesis with an ejection fractionestimated to be around 20%. The left ventricular end-diastolic pressure was 22 mmHg. On the pullback it was difficult to assess for a gradient because the moment we started pull ing on the catheter the patient had a lot of beats of V. tach until the catheter was in the aorta the refore an accurate measurement of the gradient across the aortic valve could not be obtained. Impression: This patient has a severe ischemic cardiomyopathy with severe triple vessel coronary artery bypass an d may also have valvular heart disease with aortic stenosis that was seen in the echocardiogram. We c ould not assess accurately the severity of the gradient across the aortic valve by this study. I recommend to obtain a surgical consult in view of the findings. SAUNDRA FORTUNE MDJun 2016 19:04 Conclusion Severe CAD Consider CABGS
--- NOTE | 2016-07-30 17:41 | PDOC ---
PROGRESS NOTES Subjective Subjective No chest pains. Objective Objective Vital Signs Date Time Temp Pulse Resp B/P (MAP) Pulse Ox O2 Delivery O2 Flow Rate FiO2 07/30/16 16:01 16 91 Room Air 07/30/16 15:00 98.5 88 116/79 (91) 98.5 07/30/16 07:00 2.0 Intake and Output 07/30/16 07:00 Intake Total 800 ml Balance 800 ml Intake Oral 800 ml # Voids 4 Physical Exam Physical Exam No significant changes in cardiac exam Assessment Assessment Patient with severe coronary artery disease and valvular heart disease with aortic stenosis. I have discussed the situation with the CV surgeon and we agreed that we need to do a JENNIFER to further evaluate the aortic valve and decide if she needs to have aortic valve replacement as well as the bypass surgery. I have discussed this with the patient and she agrees with the approach of proceeding with a JENNIFER in the morning. We will set up to do the JENNIFER in a.m. Comment Review of Relevant I have reviewed the following items sarahy (where applicable) has been applied. Labs Laboratory Tests Test 07/28/16 20:40 07/29/16 02:30 07/29/16 07:15 07/29/16 17:15 Glucose (Fingerstick) 222 mg/dL (70-99) 277 mg/dL (70-99) 243 mg/dL (70-99) White Blood Count 11.1 x10^3/uL (4.0-11.0) Red Blood Count 4.32 x10^6/uL (3.50-5.40) Hemoglobin 12.3 g/dL (12.0-15.5) Hematocrit 38.5 % (36.0-47.0) Mean Corpuscular Volume 89 fL (79-100) Mean Corpuscular Hemoglobin 29 pg (25-35) Mean Corpuscular Hemoglobin Concent 32 g/dL (31-37) Red Cell Distribution Width 15.4 % (11.5-14.5) Platelet Count 430 x10^3/uL (140-400) Sodium Level 135 mmol/L (136-145) Potassium Level 4.0 mmol/L (3.5-5.1) Chloride Level 98 mmol/L (98-107) Carbon Dioxide Level 33 mmol/L (21-32) Anion Gap 4 (6-14) Blood Urea Nitrogen 18 mg/dL (7-20) Creatinine 1.4 mg/dL (0.6-1.0) Estimated GFR (Cockcroft-Gault) 38.5 BUN/Creatinine Ratio 13 (6-20) Glucose Level 246 mg/dL (70-99) Calcium Level 8.8 mg/dL (8.5-10.1) Total Bilirubin 0.4 mg/dL (0.2-1.0) Aspartate Amino Transf (AST/SGOT) 39 U/L (15-37) Alanine Aminotransferase (ALT/SGPT) 25 U/L (14-59) Alkaline Phosphatase 163 U/L (46-116) Total Protein 8.0 g/dL (6.4-8.2) Albumin 2.6 g/dL (3.4-5.0) Albumin/Globulin Ratio 0.5 (1.0-1.7) Test 07/29/16 20:51 07/30/16 03:55 07/30/16 07:57 07/30/16 08:25 Glucose (Fingerstick) 193 mg/dL (70-99) 27 mg/dL (70-99) 84 mg/dL (70-99) White Blood Count 10.2 x10^3/uL (4.0-11.0) Red Blood Count 3.75 x10^6/uL (3.50-5.40) Hemoglobin 10.8 g/dL (12.0-15.5) Hematocrit 32.9 % (36.0-47.0) Mean Corpuscular Volume 88 fL (79-100) Mean Corpuscular Hemoglobin 29 pg (25-35) Mean Corpuscular Hemoglobin Concent 33 g/dL (31-37) Red Cell Distribution Width 15.5 % (11.5-14.5) Platelet Count 385 x10^3/uL (140-400) Sodium Level 141 mmol/L (136-145) Potassium Level 3.8 mmol/L (3.5-5.1) Chloride Level 104 mmol/L (98-107) Carbon Dioxide Level 33 mmol/L (21-32) Anion Gap 4 (6-14) Blood Urea Nitrogen 18 mg/dL (7-20) Creatinine 1.1 mg/dL (0.6-1.0) Estimated GFR (Cockcroft-Gault) 50.8 Glucose Level 118 mg/dL (70-99) Calcium Level 8.7 mg/dL (8.5-10.1) RK-Snk-I-Type Natriuretic Peptide 72576 pg/mL (0-124) Test 07/30/16 11:06 07/30/16 17:05 Glucose (Fingerstick) 213 mg/dL (70-99) 60 mg/dL (70-99) Laboratory Tests Test 07/29/16 20:51 07/30/16 03:55 07/30/16 07:57 07/30/16 08:25 Glucose (Fingerstick) 193 mg/dL (70-99) 27 mg/dL (70-99) 84 mg/dL (70-99) White Blood Count 10.2 x10^3/uL (4.0-11.0) Red Blood Count 3.75 x10^6/uL (3.50-5.40) Hemoglobin 10.8 g/dL (12.0-15.5) Hematocrit 32.9 % (36.0-47.0) Mean Corpuscular Volume 88 fL (79-100) Mean Corpuscular Hemoglobin 29 pg (25-35) Mean Corpuscular Hemoglobin Concent 33 g/dL (31-37) Red Cell Distribution Width 15.5 % (11.5-14.5) Platelet Count 385 x10^3/uL (140-400) Sodium Level 141 mmol/L (136-145) Potassium Level 3.8 mmol/L (3.5-5.1) Chloride Level 104 mmol/L (98-107) Carbon Dioxide Level 33 mmol/L (21-32) Anion Gap 4 (6-14) Blood Urea Nitrogen 18 mg/dL (7-20) Creatinine 1.1 mg/dL (0.6-1.0) Estimated GFR (Cockcroft-Gault) 50.8 Glucose Level 118 mg/dL (70-99) Calcium Level 8.7 mg/dL (8.5-10.1) KH-Fop-T-Type Natriuretic Peptide 15974 pg/mL (0-124) Test 07/30/16 11:06 07/30/16 17:05 Glucose (Fingerstick) 213 mg/dL (70-99) 60 mg/dL (70-99) Microbiology 07/26/16 Blood Culture - Preliminary, Resulted NO GROWTH AFTER 4 DAYS 07/25/16 Urine Culture - Final, Complete 07/25/16 Urine Culture Result 1 (BUSTER) - Final, Complete Medications Current Medications Dextrose/Sodium Chloride 1,000 ml @ 200 mls/hr 1X ONCE IV Last administered on 07/25/16 12:40; Start 07/25/16 at 12:15; Stop 07/26/16 at 10:49; Status DC Dextrose (Dextrose 50%-Water Syringe) 25 gm 1X ONCE IV Last administered on 13:08; Start 07/25/16 at 13:00; Stop 07/25/16 at 13:03; Status DC Dextrose (Dextrose 50%-Water Syringe) 25 gm 1X ONCE IV Last administered on 14:19; Start 07/25/16 at 14:15; Stop 07/25/16 at 14:16; Status DC Ondansetron HCl (Zofran) 4 mg PRN Q8HRS PRN IV NAUSEA/VOMITING Last administered on 07/26/16 09:36; Start 07/25/16 at 15:00; Stop 07/26/16 at 14:59 ; Status DC Potassium Chloride/Dextrose/ Sod Cl 1,000 ml @ 75 mls/hr [id number] IV Last administered on 07/26/16 21:21; Start 07/25/16 at 19:15; Stop 07/27/16 at 11:18 ; Status DC Aspirin (Ecotrin) 81 mg DAILY PO Last administered on 07/30/16 09:39; Start at 09:00 Diclofenac Sodium (Voltaren) 1 saloni QID TP Last administered on 07/30/16 15:00 ; Start 07/25/16 at 21:00 Gabapentin (Neurontin) 600 mg TID PO Last administered on 07/30/16 15:01; Start 07/25/16 at 21:00 Nicotine (Nicoderm Cq 14mg) 1 patch DAILY TD Last administered on 07/30/16 09: 41; Start 07/25/16 at 19:30 Pantoprazole Sodium (Protonix) 40 mg DAILYAC PO Last administered on 07/30/16 09:41; Start 07/26/16 at 07:30 Pentoxifylline (TRENtal) 400 mg BIDWMEALS PO Last administered on 07/30/16 09: 41; Start 07/26/16 at 08:00 Duloxetine HCl (Cymbalta) 60 mg DAILY PO Last administered on 07/30/16 09:38; Start 07/26/16 at 09:00 Meloxicam (Mobic) 15 mg DAILY PO Last administered on 07/30/16 09:40; Start at 09:00; Stop 07/30/16 at 13:39; Status DC Oxycodone HCl (Roxicodone) 20 mg PRN QHS PRN PO PAIN Last administered on 20:19; Start 07/25/16 at 21:00; Stop 07/26/16 at 15:30; Status DC Zolpidem Tartrate (Ambien) 5 mg QHS PO Last administered on 07/29/16 21:23; Start 07/25/16 at 21:00 Zolpidem Tartrate (Ambien) 5 mg PRN QHS PRN PO INSOMNIA; Start 07/25/16 at 19: 30 Sodium Chloride 1,000 ml @ 75 mls/hr [id number] IV Last administered on 09:34; Start 07/26/16 at 11:00; Stop 07/27/16 at 11:18; Status DC Insulin Aspart (NovoLOG) 0-5 UNITS TIDWMEALS SQ Last administered on 07/30/16 12:51; Start 07/26/16 at 12:00; Stop 07/30/16 at 13:39; Status DC Dextrose (Dextrose 50%-Water Syringe) 12.5 gm PRN Q15MIN PRN IV SEE COMMENTS; Start 07/26/16 at 11:00 Insulin Detemir (Levemir) 20 units QHS SQ ; Start 07/26/16 at 21:00; Stop at 13:26; Status DC Oxycodone/ Acetaminophen (Percocet 5/325) 1 tab PRN Q4HRS PRN PO PAIN Last administered on 07/30/16 15:01; Start 07/26/16 at 15:30 Oxycodone HCl (Roxicodone) 20 mg PRN Q8HRS PRN PO PAIN BREAKTHROUGH Last administered on 07/29/16 16:24; Start 07/26/16 at 15:30 Furosemide (Lasix) 40 mg DAILY IVP Last administered on 07/28/16 08:27; Start 07/27/16 at 12:00; Stop 07/28/16 at 12:48; Status DC Potassium Chloride (Klor-Con) 20 meq [id number] PO Last administered on 08:28; Start 07/27/16 at 12:00; Stop 07/28/16 at 12:48; Status DC Insulin Detemir (Levemir) 30 units QHS SQ ; Start 07/27/16 at 21:00; Stop at 12:53; Status DC Insulin Aspart (NovoLOG) 10 units TIDAC SQ Last administered on 07/28/16 12:12 ; Start 07/27/16 at 16:30; Stop 07/28/16 at 12:53; Status DC Insulin Aspart (NovoLOG) 5 units TIDAC SQ Last administered on 07/30/16 12:51 ; Start 07/28/16 at 16:30 Insulin Detemir (Levemir) 25 units QHS SQ Last administered on 07/29/16 21:31 ; Start 07/28/16 at 21:00; Stop 07/30/16 at 13:39; Status DC Sodium Chloride 1,000 ml @ 60 mls/hr [id number] IV Last administered on 06:25; Start 07/29/16 at 06:00; Stop 07/29/16 at 18:00; Status DC Insulin Detemir (Levemir) 15 units 1X ONCE SQ ; Start 07/28/16 at 15:00; Stop 07/28/16 at 15:01; Status Cancel Insulin Detemir (Levemir) 15 units 1X ONCE SQ Last administered on 07/28/16 21:20; Start 07/28/16 at 21:00; Stop 07/28/16 at 21:01; Status DC Iodixanol (Visipaque 320) 100 ml STK-MED ONCE .ROUTE ; Start 07/29/16 at 10:03; Stop 07/29/16 at 10:04; Status DC Lidocaine HCl 20 ml STK-MED ONCE .ROUTE ; Start 07/29/16 at 10:03; Stop at 10:04; Status DC Heparin Sodium/ Sodium Chloride 500 ml @ As Directed STK-MED ONCE .ROUTE ; Start 07/29/16 at 10:03; Stop 07/29/16 at 10:04; Status DC Fentanyl Citrate (Fentanyl 5ml Vial) 250 mcg STK-MED ONCE .ROUTE ; Start at 11:43; Stop 07/29/16 at 11:44; Status DC Midazolam HCl (Versed) 5 mg STK-MED ONCE .ROUTE ; Start 07/29/16 at 11:43; Stop 07/29/16 at 11:44; Status DC Heparin Sodium/ Sodium Chloride 1,000 unit 1X ONCE IART Last administered on 12:13; Start 07/29/16 at 12:00; Stop 07/29/16 at 12:01; Status DC Midazolam HCl (Versed) 5 mg 1X ONCE IV Last administered on 07/29/16 12:14; Start 07/29/16 at 12:00; Stop 07/29/16 at 12:01; Status DC Fentanyl Citrate (Fentanyl 5ml Vial) 100 mcg 1X ONCE IV Last administered on 12:14; Start 07/29/16 at 12:00; Stop 07/29/16 at 12:01; Status DC Iodixanol (Visipaque 320) 100 ml 1X ONCE IART Last administered on 07/29/16 12:13; Start 07/29/16 at 12:00; Stop 07/29/16 at 12:01; Status DC Lidocaine HCl 20 ml 1X ONCE IJ Last administered on 07/29/16 12:13; Start at 12:00; Stop 07/29/16 at 12:01; Status DC Info (Do NOT chart on this entry -- for MONITORING) 1 each PRN DAILY PRN MC SEE COMMENTS; Start 07/29/16 at 12:00; Stop 07/31/16 at 11:59 Glucose (Insta-Glucose) 15 gm STK-MED ONCE .ROUTE ; Start 07/30/16 at 08:00; Stop 07/30/16 at 08:01; Status DC Furosemide (Lasix) 40 mg 1X ONCE IVP Last administered on 07/30/16 12:48; Start 07/30/16 at 09:30; Stop 07/30/16 at 09:31; Status DC Insulin Detemir (Levemir) 20 units QHS SQ ; Start 07/30/16 at 21:00 Active Scripts Active Pantoprazole Sodium 40 Mg Tablet. 40 Mg PO DAILYAC 30 Days Cymbalta (Duloxetine Hcl) 60 Mg Capsule. 60 Mg PO DAILY 30 Days Reported Gabapentin 600 Mg Tablet 600 Mg PO TID Oxycodone Hcl 20 Mg Tablet 20 Mg PO QHS PRN Ambien (Zolpidem Tartrate) 10 Mg Tablet 1 Tab PO QHS NICODERM CQ 14mg (Nicotine) 1 Each Patch.td24 1 Patch TP DAILY Meloxicam 15 Mg Tablet 1 Tab PO DAILY Novolog Flexpen (Insulin Aspart) 100 Unit/1 Ml Insuln.pen 3 Unit SQ TIDWMEALS Pentoxifylline 400 Mg Tablet.er 400 Mg PO BIDWMEALS Aspir-Low (Aspirin) 81 Mg Tablet. 1 Tab PO DAILY Voltaren (Diclofenac Sodium) 100 Gm Gel..gram. 1 Gm TP QID Levemir (Insulin Detemir) 100 Unit/1 Ml Vial 26 Unit SQ HS Vitals/I & O Vital Sign - Last 24 Hours 07/29/16 07/29/16 07/29/16 07/29/16 19:20 20:10 21:23 22:23 Temp 98.8 98.8 Pulse 89 Resp 20 B/P (MAP) 116/77 (90) Pulse Ox 92 92 O2 Delivery Room Air Room Air Nasal Cannula O2 Flow Rate 2.0 2.0 07/29/16 07/30/16 07/30/16 07/30/16 23:20 03:20 07:00 08:00 Temp 98.6 98.3 98.5 98.6 98.3 98.5 Pulse 84 84 88 Resp 18 20 20 B/P (MAP) 124/82 (96) 194/83 (120) 146/89 (108) Pulse Ox 95 95 94 O2 Delivery Nasal Cannula Nasal Cannula Nasal Cannula Room Air O2 Flow Rate 2.0 2.0 2.0 07/30/16 07/30/16 07/30/16 07/30/16 11:00 15:00 15:01 16:01 Temp 98.2 98.5 98.2 98.5 Pulse 95 88 Resp 20 20 17 16 B/P (MAP) 175/107 (129) 116/79 (91) Pulse Ox 91 94 91 91 O2 Delivery Room Air Room Air Room Air Room Air Intake and Output 07/29/16 07/29/16 07/30/16 15:00 23:00 07:00 Intake Total 0 ml 500 ml 300 ml Balance 0 ml 500 ml 300 ml SAUNDRA FORTUNE MD Jul 30, 2016 17:41
[2016-07-30] MEDS ORDERED: LIDOCAINE 2% VISCOUS 15 ML SOLUTION. MM ONE (17:45)
[2016-07-30] MEDS ORDERED: BENZOCAINE ONE 20% MUCOSAL SPRAY. MM (17:45)
[2016-07-30] MEDS ORDERED: LIDOCAINE 2% TOPICAL JELLY 5GM TUBE. TP ONE (17:45)
[2016-07-30 19:35] VITALS: BP 141/97
[2016-07-30] MEDS: ZOLPIDEM 5 MG TABLET. PO SCH (22:03)
[2016-07-30] MEDS: oxyCODONE IR 5 MG TABLET PO PRN (22:04)
[2016-07-30] MEDS: INSULIN DETEMIR 300 UNITS/3 ML INSULN.PEN. SQ SCH (22:13)
[2016-07-30 23:30] VITALS: BP 159/98
[2016-07-31 03:30] VITALS: BP 106/70
[2016-07-31 07:04] LABS: CALCIUM 8.7 mg/dL (8.5-10.1); CREATININE 1.1 mg/dL (0.6-1.0); GFR 50.8; POTASSIUM 3.6 mmol/L (3.5-5.1)
[2016-07-31] MEDS: INSULIN ASPART 300 UNITS/3 ML INSULN.PEN SQ SCH ×3 (07:30→18:02)
[2016-07-31 07:55] VITALS: BP 118/67
[2016-07-31] MEDS: GABAPENTIN 300 MG CAPSULE. PO SCH ×3 (09:00→21:09)
[2016-07-31] MEDS: ASPIRIN ENTERIC COATED 81 MG TABLET.DR. PO SCH (09:00)
--- NOTE | 2016-07-31 09:24 | PDOC ---
SUBJECTIVE Subjective feels ok no cp or SOB OBJECTIVE Vital Signs Vital Signs Date Time Temp Pulse Resp B/P (MAP) Pulse Ox O2 Delivery O2 Flow Rate FiO2 07/31/16 07:55 98.0 82 17 118/67 (84) 94 Room Air 98.0 07/31/16 03:35 94 Nasal Cannula 2.0 07/31/16 03:30 98.2 83 22 106/70 (82) 85 Room Air 98.2 07/31/16 00:48 18 94 Nasal Cannula 2.0 07/30/16 23:48 22 96 Nasal Cannula 2.0 07/30/16 23:30 98.4 97 18 159/98 (118) 96 Nasal Cannula 2.0 98.4 07/30/16 23:10 22 96 Nasal Cannula 2.0 07/30/16 22:04 20 92 Room Air 07/30/16 20:30 Room Air 07/30/16 19:35 98.4 91 20 141/97 (112) 92 Room Air 98.4 07/30/16 15:01 17 91 Room Air 07/30/16 15:00 98.5 88 20 116/79 (91) 94 Room Air 98.5 07/30/16 11:00 98.2 95 20 175/107 (129) 91 Room Air 98.2 I & O Intake and Output 07/31/16 07:00 Intake Total 1120 ml Balance 1120 ml Intake Oral 1120 ml # Voids 5 PHYSICAL EXAM Physical Exam better breath sounds in bases heart RRR abd soft ext no edema ASSESSMENT/PLAN Assessment/Plan for JENNIFER today , plan to discharge later today , arrange to come back for surgery next week Problems: COMMENT Lab Laboratory Tests Test 07/30/16 11:06 07/30/16 17:05 07/30/16 20:53 07/31/16 06:00 Glucose (Fingerstick) 213 mg/dL (70-99) 60 mg/dL (70-99) 180 mg/dL (70-99) Sodium Level 138 mmol/L (136-145) Potassium Level 3.6 mmol/L (3.5-5.1) Chloride Level 101 mmol/L (98-107) Carbon Dioxide Level 32 mmol/L (21-32) Anion Gap 5 (6-14) Blood Urea Nitrogen 20 mg/dL (7-20) Creatinine 1.1 mg/dL (0.6-1.0) Estimated GFR (Cockcroft-Gault) 50.8 Glucose Level 160 mg/dL (70-99) Calcium Level 8.7 mg/dL (8.5-10.1) Test 07/31/16 07:39 Glucose (Fingerstick) 117 mg/dL (70-99) JOSH GANT MD Jul 31, 2016 09:24
[2016-07-31] MEDS ORDERED: INSU100I17 SQ (09:36)
[2016-07-31] MEDS ORDERED: ALPR0.5T PO (09:36)
[2016-07-31] MEDS ORDERED: INSU100V13 SQ (09:36)
--- NOTE | 2016-07-31 09:37 | PDOC3 ---
Discharge Summary* Date of Admission: Jul 26, 2016 Date of Discharge: Jul 31, 2016 Admitting Diagnosis Problems Medical Problems: (1) Altered mental status Status: Acute Final Diagnosis 1- severe CAD plan for triple bypass surgery next week 2- Aortic stenosis ,JENNIFER pending 3-Cardiomyopathy ischemic 4- pleural effusions 5- hypoglycemia 6.DM II 7.HTN 8. HLD 9. PAD Problems Medical Problems: (1) Altered mental status Status: Acute CONSULTS cardiology, cadiovascular surgery Procedures CXR, echo, cardiac cath, JENNIFER Brief Hospital Course Ms. Chandler is a 60 old [sex] who presented with [ ] Disposition/Orders: D/C to Home CONDITION AT DISCHARGE: Stable Diet: Cardiac, Consistent Carbohydrate Scheduled Alprazolam (Xanax), 1 TAB PO BID Aspirin (Aspir-Low), 1 TAB PO DAILY, (Reported) Diclofenac Sodium (Voltaren), 1 GM TP QID, (Reported) Duloxetine Hcl (Cymbalta), 60 MG PO DAILY Gabapentin (Gabapentin), 600 MG PO TID, (Reported) Insulin Aspart (Novolog Flexpen), 5 UNIT SQ TIDWMEALS Insulin Detemir (Levemir), 20 UNIT SQ HS Meloxicam (Meloxicam), 1 TAB PO DAILY, (Reported) Nicotine (NICODERM CQ 14mg), 1 PATCH TP DAILY, (Reported) Pantoprazole Sodium (Pantoprazole Sodium), 40 MG PO DAILYAC Pentoxifylline (Pentoxifylline), 400 MG PO BIDWMEALS, (Reported) Zolpidem Tartrate (Ambien), 1 TAB PO QHS, (Reported) Scheduled PRN Oxycodone Hcl (Oxycodone Hcl), 20 MG PO QHS PRN for PAIN, (Reported) Discontinued Medications Gabapentin (Neurontin), 600 CAP PO TID, (Reported) Lidocaine (Lidoderm), 1 PATCH TP DAILY, (Reported) FOLLOW UP APPOINTMENT: F/U cv surgery arrange for surgery next week f/u Dr. Gant 2 weeks Time Spent Total time spent with patient [] minutes for coordination of care, counseling, and education. JOSH GANT MD Jul 31, 2016 09:37
[2016-07-31] MEDS: oxyCODONE IR 5 MG TABLET PO PRN ×2 (10:34→21:10)
[2016-07-31] MEDS: DICLOFENAC SODIUM 1% TOPICAL GEL 100GM TUBE. TP SCH ×4 (10:34→21:10)
[2016-07-31 10:40] VITALS: BP 118/83
[2016-07-31] MEDS ORDERED: DEXTROSE ORAL GEL 15 GM TUBE. ONE (11:26)
[2016-07-31] MEDS ORDERED: IV DEXTROSE 5% 1,000 ML IV ONE ×2 (12:00)
[2016-07-31] MEDS: DULoxetine HCL 30 MG CAPSULE.DR PO SCH (12:32)
[2016-07-31] MEDS: PENTOXIFYLLINE ER 400 MG TABLET.ER. PO SCH ×2 (12:33→17:56)
[2016-07-31] MEDS: NICOTINE 14MG PATCH. TD SCH (12:33)
[2016-07-31] MEDS: PANTOPRAZOLE 40 MG TABLET.DR. PO SCH (12:33)
[2016-07-31 14:29] VITALS: BP 98/68
[2016-07-31] MEDS: oxyCODONE/APAP 5/325 1 TAB TABLET PO PRN (17:57)
[2016-07-31 19:10] VITALS: BP 117/76
--- NOTE | 2016-07-31 19:47 | PDOC ---
PROGRESS NOTES Subjective Subjective No new complaints. Unable to do the JENNIFER today because it could not be scheduled for the sedation Objective Objective Vital Signs Date Time Temp Pulse Resp B/P (MAP) Pulse Ox O2 Delivery O2 Flow Rate FiO2 07/31/16 18:57 17 92 Room Air 07/31/16 14:29 98.2 81 98/68 (78) 98.2 07/31/16 03:35 2.0 Intake and Output 07/31/16 07:00 Intake Total 1120 ml Balance 1120 ml Intake Oral 1120 ml # Voids 5 Physical Exam Physical Exam No significant changes in cardiac exam Assessment Assessment Hemodynamically stable at this point. She is compensated. No angina. We will do the JENNIFER tomorrow. Comment Review of Relevant I have reviewed the following items sarahy (where applicable) has been applied. Labs Laboratory Tests Test 07/29/16 20:51 07/30/16 03:55 07/30/16 07:57 07/30/16 08:25 Glucose (Fingerstick) 193 mg/dL (70-99) 27 mg/dL (70-99) 84 mg/dL (70-99) White Blood Count 10.2 x10^3/uL (4.0-11.0) Red Blood Count 3.75 x10^6/uL (3.50-5.40) Hemoglobin 10.8 g/dL (12.0-15.5) Hematocrit 32.9 % (36.0-47.0) Mean Corpuscular Volume 88 fL (79-100) Mean Corpuscular Hemoglobin 29 pg (25-35) Mean Corpuscular Hemoglobin Concent 33 g/dL (31-37) Red Cell Distribution Width 15.5 % (11.5-14.5) Platelet Count 385 x10^3/uL (140-400) Sodium Level 141 mmol/L (136-145) Potassium Level 3.8 mmol/L (3.5-5.1) Chloride Level 104 mmol/L (98-107) Carbon Dioxide Level 33 mmol/L (21-32) Anion Gap 4 (6-14) Blood Urea Nitrogen 18 mg/dL (7-20) Creatinine 1.1 mg/dL (0.6-1.0) Estimated GFR (Cockcroft-Gault) 50.8 Glucose Level 118 mg/dL (70-99) Calcium Level 8.7 mg/dL (8.5-10.1) HF-Pme-Q-Type Natriuretic Peptide 49826 pg/mL (0-124) Test 07/30/16 11:06 07/30/16 17:05 07/30/16 20:53 07/31/16 06:00 Glucose (Fingerstick) 213 mg/dL (70-99) 60 mg/dL (70-99) 180 mg/dL (70-99) Sodium Level 138 mmol/L (136-145) Potassium Level 3.6 mmol/L (3.5-5.1) Chloride Level 101 mmol/L (98-107) Carbon Dioxide Level 32 mmol/L (21-32) Anion Gap 5 (6-14) Blood Urea Nitrogen 20 mg/dL (7-20) Creatinine 1.1 mg/dL (0.6-1.0) Estimated GFR (Cockcroft-Gault) 50.8 Glucose Level 160 mg/dL (70-99) Calcium Level 8.7 mg/dL (8.5-10.1) Test 07/31/16 07:39 07/31/16 11:24 07/31/16 11:46 07/31/16 16:36 Glucose (Fingerstick) 117 mg/dL (70-99) 39 mg/dL (70-99) 159 mg/dL (70-99) 170 mg/dL (70-99) Laboratory Tests Test 07/30/16 20:53 07/31/16 06:00 07/31/16 07:39 07/31/16 11:24 Glucose (Fingerstick) 180 mg/dL (70-99) 117 mg/dL (70-99) 39 mg/dL (70-99) Sodium Level 138 mmol/L (136-145) Potassium Level 3.6 mmol/L (3.5-5.1) Chloride Level 101 mmol/L (98-107) Carbon Dioxide Level 32 mmol/L (21-32) Anion Gap 5 (6-14) Blood Urea Nitrogen 20 mg/dL (7-20) Creatinine 1.1 mg/dL (0.6-1.0) Estimated GFR (Cockcroft-Gault) 50.8 Glucose Level 160 mg/dL (70-99) Calcium Level 8.7 mg/dL (8.5-10.1) Test 07/31/16 11:46 07/31/16 16:36 Glucose (Fingerstick) 159 mg/dL (70-99) 170 mg/dL (70-99) Microbiology 07/26/16 Blood Culture - Final, Complete NO GROWTH AFTER 5 DAYS 07/25/16 Urine Culture - Final, Complete 07/25/16 Urine Culture Result 1 (BUSTER) - Final, Complete Medications Current Medications Dextrose/Sodium Chloride 1,000 ml @ 200 mls/hr 1X ONCE IV Last administered on 07/25/16 12:40; Start 07/25/16 at 12:15; Stop 07/26/16 at 10:49; Status DC Dextrose (Dextrose 50%-Water Syringe) 25 gm 1X ONCE IV Last administered on 13:08; Start 07/25/16 at 13:00; Stop 07/25/16 at 13:03; Status DC Dextrose (Dextrose 50%-Water Syringe) 25 gm 1X ONCE IV Last administered on 14:19; Start 07/25/16 at 14:15; Stop 07/25/16 at 14:16; Status DC Ondansetron HCl (Zofran) 4 mg PRN Q8HRS PRN IV NAUSEA/VOMITING Last administered on 07/26/16 09:36; Start 07/25/16 at 15:00; Stop 07/26/16 at 14:59 ; Status DC Potassium Chloride/Dextrose/ Sod Cl 1,000 ml @ 75 mls/hr [id number] IV Last administered on 07/26/16 21:21; Start 07/25/16 at 19:15; Stop 07/27/16 at 11:18 ; Status DC Aspirin (Ecotrin) 81 mg DAILY PO Last administered on 07/31/16 09:00; Start at 09:00 Diclofenac Sodium (Voltaren) 1 saloni QID TP Last administered on 07/31/16 17:00 ; Start 07/25/16 at 21:00 Gabapentin (Neurontin) 600 mg TID PO Last administered on 07/31/16 12:32; Start 07/25/16 at 21:00 Nicotine (Nicoderm Cq 14mg) 1 patch DAILY TD Last administered on 07/31/16 12: 33; Start 07/25/16 at 19:30 Pantoprazole Sodium (Protonix) 40 mg DAILYAC PO Last administered on 07/31/16 12:33; Start 07/26/16 at 07:30 Pentoxifylline (TRENtal) 400 mg BIDWMEALS PO Last administered on 07/31/16 17: 56; Start 07/26/16 at 08:00 Duloxetine HCl (Cymbalta) 60 mg DAILY PO Last administered on 07/31/16 12:32; Start 07/26/16 at 09:00 Meloxicam (Mobic) 15 mg DAILY PO Last administered on 07/30/16 09:40; Start at 09:00; Stop 07/30/16 at 13:39; Status DC Oxycodone HCl (Roxicodone) 20 mg PRN QHS PRN PO PAIN Last administered on 20:19; Start 07/25/16 at 21:00; Stop 07/26/16 at 15:30; Status DC Zolpidem Tartrate (Ambien) 5 mg QHS PO Last administered on 07/30/16 22:03; Start 07/25/16 at 21:00 Zolpidem Tartrate (Ambien) 5 mg PRN QHS PRN PO INSOMNIA Last administered on 23:48; Start 07/25/16 at 19:30 Sodium Chloride 1,000 ml @ 75 mls/hr [id number] IV Last administered on 09:34; Start 07/26/16 at 11:00; Stop 07/27/16 at 11:18; Status DC Insulin Aspart (NovoLOG) 0-5 UNITS TIDWMEALS SQ Last administered on 07/30/16 12:51; Start 07/26/16 at 12:00; Stop 07/30/16 at 13:39; Status DC Dextrose (Dextrose 50%-Water Syringe) 12.5 gm PRN Q15MIN PRN IV SEE COMMENTS; Start 07/26/16 at 11:00 Insulin Detemir (Levemir) 20 units QHS SQ ; Start 07/26/16 at 21:00; Stop at 13:26; Status DC Oxycodone/ Acetaminophen (Percocet 5/325) 1 tab PRN Q4HRS PRN PO PAIN Last administered on 07/31/16 17:57; Start 07/26/16 at 15:30 Oxycodone HCl (Roxicodone) 20 mg PRN Q8HRS PRN PO PAIN BREAKTHROUGH Last administered on 07/31/16 10:34; Start 07/26/16 at 15:30 Furosemide (Lasix) 40 mg DAILY IVP Last administered on 07/28/16 08:27; Start 07/27/16 at 12:00; Stop 07/28/16 at 12:48; Status DC Potassium Chloride (Klor-Con) 20 meq [id number] PO Last administered on 08:28; Start 07/27/16 at 12:00; Stop 07/28/16 at 12:48; Status DC Insulin Detemir (Levemir) 30 units QHS SQ ; Start 07/27/16 at 21:00; Stop at 12:53; Status DC Insulin Aspart (NovoLOG) 10 units TIDAC SQ Last administered on 07/28/16 12:12 ; Start 07/27/16 at 16:30; Stop 07/28/16 at 12:53; Status DC Insulin Aspart (NovoLOG) 5 units TIDAC SQ Last administered on 07/31/16 18:02 ; Start 07/28/16 at 16:30 Insulin Detemir (Levemir) 25 units QHS SQ Last administered on 07/29/16 21:31 ; Start 07/28/16 at 21:00; Stop 07/30/16 at 13:39; Status DC Sodium Chloride 1,000 ml @ 60 mls/hr [id number] IV Last administered on 06:25; Start 07/29/16 at 06:00; Stop 07/29/16 at 18:00; Status DC Insulin Detemir (Levemir) 15 units 1X ONCE SQ ; Start 07/28/16 at 15:00; Stop 07/28/16 at 15:01; Status Cancel Insulin Detemir (Levemir) 15 units 1X ONCE SQ Last administered on 07/28/16 21:20; Start 07/28/16 at 21:00; Stop 07/28/16 at 21:01; Status DC Iodixanol (Visipaque 320) 100 ml STK-MED ONCE .ROUTE ; Start 07/29/16 at 10:03; Stop 07/29/16 at 10:04; Status DC Lidocaine HCl 20 ml STK-MED ONCE .ROUTE ; Start 07/29/16 at 10:03; Stop at 10:04; Status DC Heparin Sodium/ Sodium Chloride 500 ml @ As Directed STK-MED ONCE .ROUTE ; Start 07/29/16 at 10:03; Stop 07/29/16 at 10:04; Status DC Fentanyl Citrate (Fentanyl 5ml Vial) 250 mcg STK-MED ONCE .ROUTE ; Start at 11:43; Stop 07/29/16 at 11:44; Status DC Midazolam HCl (Versed) 5 mg STK-MED ONCE .ROUTE ; Start 07/29/16 at 11:43; Stop 07/29/16 at 11:44; Status DC Heparin Sodium/ Sodium Chloride 1,000 unit 1X ONCE IART Last administered on 12:13; Start 07/29/16 at 12:00; Stop 07/29/16 at 12:01; Status DC Midazolam HCl (Versed) 5 mg 1X ONCE IV Last administered on 07/29/16 12:14; Start 07/29/16 at 12:00; Stop 07/29/16 at 12:01; Status DC Fentanyl Citrate (Fentanyl 5ml Vial) 100 mcg 1X ONCE IV Last administered on 12:14; Start 07/29/16 at 12:00; Stop 07/29/16 at 12:01; Status DC Iodixanol (Visipaque 320) 100 ml 1X ONCE IART Last administered on 07/29/16 12:13; Start 07/29/16 at 12:00; Stop 07/29/16 at 12:01; Status DC Lidocaine HCl 20 ml 1X ONCE IJ Last administered on 07/29/16 12:13; Start at 12:00; Stop 07/29/16 at 12:01; Status DC Info (Do NOT chart on this entry -- for MONITORING) 1 each PRN DAILY PRN MC SEE COMMENTS; Start 07/29/16 at 12:00; Stop 07/31/16 at 11:59; Status DC Glucose (Insta-Glucose) 15 gm STK-MED ONCE .ROUTE ; Start 07/30/16 at 08:00; Stop 07/30/16 at 08:01; Status DC Furosemide (Lasix) 40 mg 1X ONCE IVP Last administered on 07/30/16 12:48; Start 07/30/16 at 09:30; Stop 07/30/16 at 09:31; Status DC Insulin Detemir (Levemir) 20 units QHS SQ Last administered on 07/30/16 22:13 ; Start 07/30/16 at 21:00 Lidocaine HCl (Xylocaine 2% Topical 5gm Tube) 1 saloni 1X ONCE TP ; Start at 17:45; Stop 07/30/16 at 17:46; Status DC Lidocaine HCl (Viscous Lidocaine) 15 ml 1X ONCE MM ; Start 07/30/16 at 17:45; Stop 07/30/16 at 17:46; Status DC Benzocaine (Hurricaine One) 1 spray 1X ONCE MM ; Start 07/30/16 at 17:45; Stop 07/30/16 at 17:46; Status DC Glucose (Insta-Glucose) 15 gm STK-MED ONCE .ROUTE ; Start 07/30/16 at 08:00; Stop 07/31/16 at 08:55; Status DC Glucose (Insta-Glucose) 15 gm STK-MED ONCE .ROUTE ; Start 07/31/16 at 11:26; Stop 07/31/16 at 11:27; Status DC Dextrose 1,000 ml @ 0 mls/hr 1X ONCE IV ; Start 07/31/16 at 12:00; Stop at 12:01; Status UNV Dextrose 1,000 ml @ 0 mls/hr 1X IV ; Start 08/01/16 at 11:45; Status UNV Dextrose 1,000 ml @ 0 mls/hr 1X ONCE IV Last administered on 07/31/16 12:00 ; Start 07/31/16 at 12:00; Stop 07/31/16 at 12:01; Status DC Ondansetron HCl (Zofran) 4 mg PRN Q6HRS PRN IV NAUSEA/VOMITING; Start 08/01/16 at 07:00; Stop 08/02/16 at 06:59 Fentanyl Citrate (Fentanyl 2ml Vial) 25 mcg PRN Q5MIN PRN IV MILD PAIN; Start 08/01/16 at 07:00; Stop 08/02/16 at 06:59 Fentanyl Citrate (Fentanyl 2ml Vial) 50 mcg PRN Q5MIN PRN IV MODERATE PAIN; Start 08/01/16 at 07:00; Stop 08/02/16 at 06:59 Ringer's Solution 1,000 ml @ 30 mls/hr Q24H IV ; Start 08/01/16 at 07:00; Stop 08/01/16 at 18:59 Lidocaine HCl 2 ml PRN 1X PRN ID PRIOR TO IV START; Start 08/01/16 at 07:00; Stop 08/02/16 at 06:59 Prochlorperazine Edisylate (Compazine) 5 mg PACU PRN PRN IV NAUSEA, MRX1; Start 08/01/16 at 07:00; Stop 08/02/16 at 06:59 Active Scripts Active Xanax (Alprazolam) 0.5 Mg Tablet 1 Tab PO BID Novolog Flexpen (Insulin Aspart) 100 Unit/1 Ml Insuln.pen 5 Unit SQ TIDWMEALS 30 Days Levemir (Insulin Detemir) 100 Unit/1 Ml Vial 20 Unit SQ HS 30 Days Pantoprazole Sodium 40 Mg Tablet. 40 Mg PO DAILYAC 30 Days Cymbalta (Duloxetine Hcl) 60 Mg Capsule. 60 Mg PO DAILY 30 Days Reported Gabapentin 600 Mg Tablet 600 Mg PO TID Oxycodone Hcl 20 Mg Tablet 20 Mg PO QHS PRN Ambien (Zolpidem Tartrate) 10 Mg Tablet 1 Tab PO QHS NICODERM CQ 14mg (Nicotine) 1 Each Patch.td24 1 Patch TP DAILY Meloxicam 15 Mg Tablet 1 Tab PO DAILY Pentoxifylline 400 Mg Tablet.er 400 Mg PO BIDWMEALS Aspir-Low (Aspirin) 81 Mg Tablet. 1 Tab PO DAILY Voltaren (Diclofenac Sodium) 100 Gm Gel..gram. 1 Gm TP QID Vitals/I & O Vital Sign - Last 24 Hours 07/30/16 07/30/16 07/30/16 07/30/16 20:30 22:04 23:10 23:30 Temp 98.4 98.4 Pulse 97 Resp 20 18 B/P (MAP) 159/98 (118) Pulse Ox 92 96 O2 Delivery Room Air Room Air Nasal Cannula O2 Flow Rate 2.0 2.0 07/30/16 07/31/16 07/31/16 07/31/16 23:48 00:48 03:30 03:35 Temp 98.2 98.2 Pulse 83 Resp 22 B/P (MAP) 106/70 (82) Pulse Ox 96 85 94 O2 Delivery Nasal Cannula Room Air Nasal Cannula O2 Flow Rate 2.0 2.0 2.0 07/31/16 07/31/16 07/31/16 07/31/16 07:55 08:00 10:34 10:40 Temp 98.0 98.5 98.0 98.5 Pulse 82 85 Resp 17 18 18 B/P (MAP) 118/67 (84) 118/83 (95) Pulse Ox 94 94 92 O2 Delivery Room Air Room Air Room Air Room Air 07/31/16 07/31/16 07/31/16 07/31/16 11:34 14:29 17:57 18:57 Temp 98.2 98.2 Pulse 81 Resp 17 B/P (MAP) 98/68 (78) Pulse Ox 92 92 92 92 O2 Delivery Room Air Room Air Room Air Room Air Intake and Output 07/30/16 07/30/16 07/31/16 15:00 23:00 07:00 Intake Total 920 ml 200 ml Balance 920 ml 200 ml SAUNDRA FORTUNE MD Jul 31, 2016 19:47
[2016-07-31] MEDS: ZOLPIDEM 5 MG TABLET. PO SCH (21:09)
[2016-07-31] MEDS: INSULIN DETEMIR 300 UNITS/3 ML INSULN.PEN. SQ SCH (21:15)
[2016-07-31 23:02] VITALS: BP 124/86
[2016-08-01 03:00] VITALS: BP 131/86
[2016-08-01] MEDS ORDERED: ONDANSETRON PF 4 MG/2 ML VIAL. IV PRN (07:00)
[2016-08-01] MEDS ORDERED: LIDOCAINE 1% 1 ML SYRINGE. ID PRN (07:00)
[2016-08-01] MEDS ORDERED: PROCHLORPERAZINE 10 MG/2 ML VIAL. IV PRN (07:00)
[2016-08-01] MEDS ORDERED: IV RINGERS,LACTATED 1000ML 1,000 ML IV SCH (07:00)
[2016-08-01] MEDS ORDERED: fentaNYL PF VIAL 100 MCG/2 ML VIAL IV PRN ×2 (07:00)
[2016-08-01] MEDS: INSULIN ASPART 300 UNITS/3 ML INSULN.PEN SQ SCH ×3 (07:30→18:01)
[2016-08-01] MEDS: PANTOPRAZOLE 40 MG TABLET.DR. PO SCH (07:30)
[2016-08-01 07:45] VITALS: BP 125/79
[2016-08-01] MEDS: PENTOXIFYLLINE ER 400 MG TABLET.ER. PO SCH ×2 (08:00→17:56)
[2016-08-01] MEDS: ASPIRIN ENTERIC COATED 81 MG TABLET.DR. PO SCH (09:00)
[2016-08-01] MEDS: DICLOFENAC SODIUM 1% TOPICAL GEL 100GM TUBE. TP SCH ×3 (09:00→17:57)
[2016-08-01] MEDS: GABAPENTIN 300 MG CAPSULE. PO SCH ×2 (09:00→14:00)
[2016-08-01] MEDS: DULoxetine HCL 30 MG CAPSULE.DR PO SCH (09:00)
[2016-08-01 11:00] VITALS: BP 128/79
[2016-08-01] MEDS: oxyCODONE/APAP 5/325 1 TAB TABLET PO PRN (11:08)
[2016-08-01] MEDS: NICOTINE 14MG PATCH. TD SCH (11:12)
[2016-08-01] MEDS ORDERED: IV DEXTROSE 5% 1,000 ML IV SCH (11:45)
[2016-08-01] MEDS ORDERED: LIDOCAINE 2% VISCOUS 15 ML SOLUTION. ONE (13:04)
[2016-08-01] MEDS ORDERED: BENZOCAINE ONE 20% MUCOSAL SPRAY. (13:04)
[2016-08-01] MEDS ORDERED: BENZOCAINE ONE 20% MUCOSAL SPRAY. MM (13:15)
[2016-08-01] MEDS ORDERED: LIDOCAINE 2% TOPICAL JELLY 5GM TUBE. TP ONE (13:15)
[2016-08-01] MEDS ORDERED: LIDOCAINE 2% VISCOUS 15 ML SOLUTION. SWSW ONE (13:15)
[2016-08-01] MEDS ORDERED: PROPOFOL 20 ML IV ONE (14:22)
[2016-08-01] MEDS ORDERED: LIDOCAINE 2% TOPICAL JELLY 30GM TUBE. TP ONE (14:28)
--- NOTE | 2016-08-01 15:00 | PDOC4 ---
PROCEDURE Procedure Procedure note Procedure: JENNIFER Procedure note: After obtaining informed consent the JENNIFER was performed in the recovery room with the anesthesiologist providing the sedation. The transesophageal probe was advanced into the oropharynx and down into the esophagus without difficulty. Following that multiple views of the heart were then done. After I was satisfied with the views that had been obtained the probe was removed without difficulty. The patient tolerated the procedure rather well and was returned to her room in satisfactory condition. Findings: The left ventricle is hypokinetic and mildly dilated. The right ventricle is normal in size. The right atrium was normal in size. The left atrium is normal in size. The aortic valve has calcifications but does not appear to be significantly restricted in the opening motion. There was no significant continuous wave Doppler gradient noted. The outflow tract appears to be small and it measured 1.6 at its widest point and 1.4 just below the valve. Due to the small diameter of the valves but as well as the outflow tract this may be give false calculation of aortic stenosis but I think that this has to do with a small outflow tract rather than true aortic stenosis. No significant aortic insufficiency was seen. The mitral valve appears to open normally and only a very mild amount of mitral insufficiency was seen. The tricuspid valve appears to move normally and only a mild amount of tricuspid insufficiency was seen. The pulmonic valve appears to move normally. The atrial appendage appears to be clean of thrombus. The pulmonic vein appears to be normal and no flow reversal was seen in the pulmonic vein. SAUNDRA FORTUNE MD Aug 01, 2016 15:00
--- NOTE | 2016-08-01 15:19 | CARD ---
APPROVED REPORT EXAM: Transesophageal echocardiogram with color flow Doppler. INDICATION Dyspnea Fatigue Cardiac Disease: CAD Cardiomyopathy Congestive Heart Failure PROCEDURE After obtaining informed consent, patient underwent transesophageal echo in the PACU. Type of Sedation : General Anesthesia Sedation was provided by anesthesiologist, see EMR for medications administered. Transesophageal probe was inserted and advanced into esophagus by Power Conteh MD. The JENNIFER was performed without complications. Throughout the procedure, the blood pressure, pulse oximetry, cardiac rhythm, and rate were monitored . The patient tolerated the procedure without adverse effects. Recovery from conscious sedation was une ventful and vital signs were stable. LEFT VENTRICLE The left ventricle is mildly dilated There is mild concentric left ventricular hypertrophy. Left vent ricle systolic function is moderately to severely impaired. The Ejection Fraction is 25%. There is gl obal hypokinesis of the left ventricle. RIGHT VENTRICLE The right ventricle is normal size. The right ventricular systolic function is normal. ATRIA The left atrium size is normal. The right atrium size is normal. The interatrial septum is intact wit h no evidence for an atrial septal defect or patent foramen ovale as noted on 2-D or Doppler imaging. There is no thrombus noted in the left atrial appendage. AORTIC VALVE The aortic valve is mildly sclerotic. Doppler and Color Flow revealed no significant aortic regurgita tion. The aortic valve has calcifications but does not appear to be significantly restricted in the opening motion. There was no significant continuous wave Doppler gradient noted. The outflow tract ap pears to be small and it measured 1.6 at its widest point and 1.4 just below the valve. Due to the sm all diameter of the valves but as well as the outflow tract this may be give false calculation of aor tic stenosis but I think that this has to do with a small outflow tract rather than true aortic steno sis. MITRAL VALVE The mitral valve is normal in structure and function. There is no evidence of mitral valve prolapse. There is no mitral valve stenosis. Doppler and Color Flow revealed trace mitral regurgitation. TRICUSPID VALVE The tricuspid valve is normal in structure and function. Doppler and Color Flow revealed mild tricusp id valve regurgitation noted. There is no tricuspid valve stenosis. PULMONIC VALVE The pulmonary valve is normal in structure and function. Doppler and Color Flow revealed no pulmonic valvular regurgitation. There is no pulmonic valvular stenosis. GREAT VESSELS The aortic root is normal in size. The ascending aorta is normal in size. Normal pulmonary venous mahnaz w (Doppler). The IVC was visualized and appears normal in size. The SVC was visualized and appears no rmal in size. PERICARDIAL EFFUSION There is no pleural effusion. Critical Notification Critical Value: No <Conclusion> Left ventricle systolic function is moderately to severely impaired. The Ejection Fraction is 25%. The right ventricle is normal size. The left atrium size is normal. The right atrium size is normal. The aortic valve has calcifications but does not appear to be significantly restricted in the openin g motion. There was no significant continuous wave Doppler gradient noted. The outflow tract appears to be small and it measured 1.6 at its widest point and 1.4 just below the valve. Due to the small di ameter of the valves but as well as the outflow tract this may be give false calculation of aortic st enosis but I think that this has to do with a small outflow tract rather than true aortic stenosis. Doppler and Color Flow revealed trace mitral regurgitation. Doppler and Color Flow revealed mild tricuspid valve regurgitation noted. The pulmonary valve is normal in structure and function.
[2016-08-01 15:41] VITALS: BP 98/72
--- NOTE | 2016-08-01 16:07 | PDOC ---
Provider Note Provider Note JENNIFER reviewed by Dr. Hunter and Dr. Wally Conteh. Small LVOT likely resulted in calculation error with determining GLENN. No evidence of indication for AVR. Met with patient in PACU after JENNIFER. Will plan to see in the office @ [facility] next week on 08/07/2016 and discuss procedure further with patient and then schedule for CABG. Pt agreeable with being seen @ [facility]. MARTHA PEREIRA APRN Aug 01, 2016 16:07
== END 2016-08-01 18:45 | disposition home or self-care (01) | DRG 286 ==
LOC: ER 12:03 → 5 NORTH 13:00 → OBSVTOIN 07-26 08:00 → 2 NORTH 07-29 12:39
PROVIDERS: ADMIT Internal Medicine; ATTEND Internal Medicine
PROC: 4A023N7 Measurement of Cardiac Sampling and Pressure, Left Heart, Percutaneous Approach (ICD-10-PCS; principal; 2016-07-29)
PROC: B2151ZZ Fluoroscopy of Left Heart using Low Osmolar Contrast (ICD-10-PCS; 2016-07-29)
PROC: B2111ZZ Fluoroscopy of Multiple Coronary Arteries using Low Osmolar Contrast (ICD-10-PCS; 2016-07-29)
PROC: B246ZZ4 Ultrasonography of Right and Left Heart, Transesophageal (ICD-10-PCS; 2016-08-01)
PROC: B2161ZZ Fluoroscopy of Right and Left Heart using Low Osmolar Contrast (ICD-10-PCS; 2016-08-01)
DX: I25.10 Atherosclerotic heart disease of native coronary artery without angina pectoris (principal); I50.43 Acute on chronic combined systolic (congestive) and diastolic (congestive) heart failure; I31.3 Pericardial effusion (noninflammatory); I47.2 Ventricular tachycardia; I25.5 Ischemic cardiomyopathy; G89.29 Other chronic pain; D72.829 Elevated white blood cell count, unspecified; E11.51 Type 2 diabetes mellitus with diabetic peripheral angiopathy without gangrene; E11.649 Type 2 diabetes mellitus with hypoglycemia without coma; E11.65 Type 2 diabetes mellitus with hyperglycemia; E78.5 Hyperlipidemia, unspecified; F17.200 Nicotine dependence, unspecified, uncomplicated; G47.33 Obstructive sleep apnea (adult) (pediatric); I11.0 Hypertensive heart disease with heart failure; I25.82 Chronic total occlusion of coronary artery; I27.2 Other secondary pulmonary hypertension; I08.3 Combined rheumatic disorders of mitral, aortic and tricuspid valves; J44.9 Chronic obstructive pulmonary disease, unspecified; M19.90 Unspecified osteoarthritis, unspecified site; M79.7 Fibromyalgia; Z80.0 Family history of malignant neoplasm of digestive organs; Z82.49 Family history of ischemic heart disease and other diseases of the circulatory system; Z86.711 Personal history of pulmonary embolism; Z86.79 Personal history of other diseases of the circulatory system; Z90.49 Acquired absence of other specified parts of digestive tract; Z95.1 Presence of aortocoronary bypass graft; Z95.3 Presence of xenogenic heart valve; Z90.710 Acquired absence of both cervix and uterus
CPT/HCPCS: 36415; 71020; 76376; 80048; 80053; 81001; 82962; 83880; 85027; 85651; 87040; 87086; 87641; 93306; 93312; 93325; 93458; C1769; C1771; C1892; G0269; G0378; G0379; G0481; J1815; J1940; J2250; J2405; J2704; J3010; J7042; J7120

== ENCOUNTER 2016-08-06 14:10 | Emergency (ER) | payer OTHER ==
[~2016-08-06] VITALS: Ht 157.5 cm; Wt 54.4 kg
[~2016-08-06 14:10] MED LIST changes: +GABA600T2 PO
[2016-08-06 15:34] VITALS: BP 192/92
[2016-08-06] MEDS ORDERED: OXYC-323 PO (15:58)
--- NOTE | 2016-08-06 15:58 | PHYS DOC ---
Past Medical History Past Medical History: CAD, CHF, Diabetes-Type II Past Surgical History: Appendectomy, Cholecystectomy, Hysterectomy Additional Past Surgical Histo: ectopic pregnancies x2, pulmonary embolism, ABD aortic bypass w bifurcation Alcohol Use: None Drug Use: None Adult General Chief Complaint Chief Complaint: MECHANICAL FALL HPI HPI Patient is a 60 year old female who presents with complaint of left shoulder pain. Patient states that she experienced a mechanical fall 2 days ago after slipping and wet grass and falling onto her left shoulder. Patient denies head injury or loss of consciousness as a result of her fall. Patient states that since she fell onto her shoulder she has not been able to use the left upper extremity secondary to pain. Patient denies loss of feeling in her left upper extremity. Patient rates her pain with movement as 10 out of 10. Patient has history coronary artery disease and follows a Dr. Power Conteh. Patient states that she is scheduled to have coronary artery bypass surgery done within the week. The patient has not taken any medications at this time to help with symptoms. Review of Systems Review of Systems Constitutional: Denies fever or chills [] Eyes: Denies change in visual acuity, redness, or eye pain [] HENT: Denies nasal congestion or sore throat [] Respiratory: Denies cough or shortness of breath [] Cardiovascular: Denies substernal chest pain or edema [] GI: Denies abdominal pain, nausea, vomiting, bloody stools or diarrhea [] : Denies dysuria or hematuria [] Musculoskeletal: Left shoulder injury [] Integument: Denies rash or skin lesions [] Neurologic: Denies headache, focal weakness or sensory changes [] Current Medications Current Medications Current Medications Medications (Trade) Dose Ordered Sig/Jo Start Time Stop Time Status Last Admin Dose Admin Oxycodone/ Acetaminophen (Percocet 7.5/ 325) 1 tab 1X ONCE 08/06/16 16:00 08/06/16 16:01 DC 08/06/16 16:11 1 TAB Allergies Allergies Allergies Coded Allergies Type Severity Reaction Last Updated Verified I S O L A T I O N *CONTACT* Allergy Unknown 03/26/16 Yes hydrocodone Adverse Reaction Intermediate LOOPY 03/11/15 Yes Physical Exam Physical Exam Constitutional: Alert, afebrile, appears in moderate discomfort. [] HENT: Normocephalic, atraumatic, bilateral external ears normal, oropharynx moist, no oral exudates, nose normal. [] Eyes: PERRLA, EOMI, conjunctiva normal, no discharge. [] Neck: Normal range of motion, no tenderness, supple, no stridor. [] Cardiovascular:Heart rate regular rhythm, no murmur [] Lungs & Thorax: Bilateral breath sounds clear to auscultation [] Abdomen: Bowel sounds normal, soft, no tenderness, no masses, no pulsatile masses. [] Skin: Warm, dry, no erythema, no rash. [] Back: No tenderness, no CVA tenderness. [] Extremities: Left shoulder moderate anterior soft tissue swelling, anterior and lateral left humeral head tenderness to palpation, range of motion not tested secondary to pain and left shoulder, range of motion normal and left elbow, neurovascularly intact in distal left upper extremity. [] Neurologic: Alert and oriented X 3, normal motor function, normal sensory function, no focal deficits noted. [] Current Patient Data Vital Signs Vital Signs Date Time Temp Pulse Resp B/P (MAP) Pulse Ox O2 Delivery O2 Flow Rate FiO2 08/06/16 15:34 86 25 192/92 (125) 96 Room Air 08/06/16 14:34 98.8 98.8 EKG EKG Not performed [] Radiology/Procedures Radiology/Procedures [facility] [address] [place] [address] IMAGING REPORT Signed PATIENT: LEIDA MANCERA ACCOUNT: [id number] : 1955 LOCATION: ER AGE: 60 SEX: F EXAM STATUS: REG ER ORD. PHYSICIAN: MARLI ENGLISH MD REASON: fall 2 days ago, left shoulder pain PROCEDURE: SHOULDER 2+V LEFT 2 view study of the left shoulder Clinical indications: Fall 2 days ago. Pain. Findings: There is a comminuted fracture of the proximal shaft of the left humerus. The humerus is displaced anteriorly and medially with respect to the humeral head. There is mild inferior subluxation of the humeral head with respect to the glenoid fossa. No AC joint separation is seen. IMPRESSION: Posttraumatic fracture of the proximal left humerus. DICTATED and SIGNED BY: GUTIERREZ DIXON MD DATE: 08/06/16 1602 CC: MARLI ENGLISH MD; JOSH GANT MD ~ [] Course & Med Decision Making Course & Med Decision Making Pertinent Labs and Imaging studies reviewed. (See chart for details) Patient was found to have a left humeral neck fracture. The patient's left upper extremity was placed in a shoulder sling. This was placed by the emergency department nurse. My evaluation post sling application showed normal capillary refill in all 5 digits of the left hand and normal sensation. I notified Dr. Conteh of the injury that occurred to the patient. He stated that he would be happy to follow-up with the patient and discuss possibly rescheduling the patient's cardiac bypass surgery. The patient was referred to Dr. Pinto of orthopedic surgery with recommended follow-up in the next 5 days for reevaluation. Advised RICE therapy at home for pain. Patient was also prescribed Percocet to take as needed for pain. Initial 24 hour fracture care completed in the emergency department. Advised return emergency department for any worsening symptoms. Patient was understanding and in agreement with treatment plan. Dragon Disclaimer Dragon Disclaimer This electronic medical record was generated, in whole or in part, using a voice recognition dictation system. Departure Departure Impression: Primary Impression: Closed fracture of neck of left humerus Disposition: HOME, SELF-CARE Condition: STABLE Referrals: JOSH GANT MD (PCP) ROLF PINTO MD Patient Instructions: Shoulder Fracture Additional Instructions: Call the office of Dr. Pinto of orthopedic surgery tomorrow morning for an appointment in the next 5 days. You may keep your appointment with Dr. Conteh as scheduled tomorrow. Return to the emergency department for any worsening symptoms. Scripts Oxycodone/Apap 5-325 (PERCOCET 5-325 MG TABLET) 1 Each Tablet 1-2 TAB PO Q4-6HRS Y for PAIN, #30 TAB Prov: MARLI ENGLISH MD 08/06/16 Problem Qualifiers Primary Impression: Closed fracture of neck of left humerus Encounter type: initial encounter Qualified Codes: S42.212A - Unspecified displaced fracture of surgical neck of left humerus, initial encounter for closed fracture MARLI ENGLISH MD Aug 06, 2016 15:58
[2016-08-06] MEDS ORDERED: oxyCODONE/APAP 7.5/325 1 TAB TABLET PO ONE (16:00)
--- NOTE | 2016-08-06 16:08 | RAD ---
2 view study of the left shoulder Clinical indications: Fall 2 days ago. Pain. Findings: There is a comminuted fracture of the proximal shaft of the left humerus. The humerus is displaced anteriorly and medially with respect to the humeral head. There is mild inferior subluxation of the humeral head with respect to the glenoid fossa. No AC joint separation is seen. IMPRESSION: Posttraumatic fracture of the proximal left humerus.
== END 2016-08-06 16:14 | disposition home or self-care (01) ==
LOC: ER 14:10
DX: S42.292A Other displaced fracture of upper end of left humerus, initial encounter for closed fracture (principal); E11.9 Type 2 diabetes mellitus without complications; I25.10 Atherosclerotic heart disease of native coronary artery without angina pectoris; I50.9 Heart failure, unspecified; Z86.711 Personal history of pulmonary embolism; Z95.1 Presence of aortocoronary bypass graft; Z90.710 Acquired absence of both cervix and uterus; Z90.49 Acquired absence of other specified parts of digestive tract; Z88.5 Allergy status to narcotic agent; Z91.041 Radiographic dye allergy status; W01.0XXA Fall on same level from slipping, tripping and stumbling without subsequent striking against object, initial encounter; Y93.89 Activity, other specified; Y99.8 Other external cause status; Y92.89 Other specified places as the place of occurrence of the external cause
CPT/HCPCS: 73030; 99284

== ENCOUNTER → 2016-08-21 | Outpatient (CLI) | payer OTHER ==
[2016-08-06 15:34] VITALS: BP 192/92
[~2016-08-21] MED LIST changes: +ACET325T9 PO; +ASPI325T11 PO; +METO25TA4 PO; +OXYC15TA PO; +SENN-22 PO; +TRAZ50TA15 PO; +VARE1TAB21 PO
== END | disposition home or self-care (01) ==
LOC: PNCL 13:40
PROVIDERS: ATTEND Anesthesiology
DX: M47.896 Other spondylosis, lumbar region (principal); E11.9 Type 2 diabetes mellitus without complications
CPT/HCPCS: G0463

== ENCOUNTER → 2016-09-02 | Outpatient (CLI) | payer OTHER ==
[2016-08-06 15:34] VITALS: BP 192/92
[~2016-09-02] MED LIST changes: -ASPI325T11 PO; -METO25TA4 PO; -SENN-22 PO
[2016-09-02 10:52] LABS: BASO # 0.1 x10^3/uL (0.0-0.2); BASO % 1 % (0-3); EOS % 6 % (0-3); HEMATOCRIT 36.4 % (36.0-47.0); HEMOGLOBIN 12.3 g/dL (12.0-15.5); LYMPH # 1.7 x10^3/uL (1.0-4.8); LYMPH % 22 % (24-48); MEAN CORPUSCULAR HEMOGLOBIN 29 pg (25-35); MEAN CORPUSCULAR HGB CONC 34 g/dL (31-37); MEAN CORPUSCULAR VOLUME 86 fL (79-100); MONO % 6 % (0-9); NEUT % 66 % (31-73); PLATELET COUNT 350 x10^3/uL (140-400); RED BLOOD COUNT 4.25 x10^6/uL (3.50-5.40); RED CELL DISTRIBUTION WIDTH 15.9 % (11.5-14.5); WHITE BLOOD COUNT 8.1 x10^3/uL (4.0-11.0)
[2016-09-02 11:01] LABS: INR 1.1 (0.8-1.1); PROTHROMBIN TIME PATIENT 13.1 SEC (11.7-14.0)
--- NOTE | 2016-09-02 11:01 | EKG ---
[facility] [address] [place] [address] Test Date: 2016-09-02 Test Time: 11:04:13 Pat Name: LEIDA MANCERA Department: Room: Gender: F Watch Crystal Molder: VICTOR MANUEL BUTLER : 1955 Requested By: DALTON GONZALES Order Number: [id number] Reading MD: Measurements Intervals [place] Rate: 78 P: -41 [place]: 132 QRS: 80 QRSD: 114 T: -167 QT: 424 QTc: 487 Interpretive Statements SINUS RHYTHM R-S TRANSITION ZONE IN V LEADS DISPLACED TO THE LEFT LVH WITH REPOLARIZATION ABNORMALITY QRS(T) CONTOUR ABNORMALITY CONSIDER ANTEROLATERAL MYOCARDIAL DAMAGE CONSISTENT WITH INFERIOR INFARCT AGE UNDETERMINED ABNORMAL ECG RI6.01 Compared to ECG 03/21/2016 17:54:24 Left ventricular hypertrophy now present Early repolarization now present Myocardial infarct finding now present Atrial abnormality no longer present Possible ischemia no longer present
[2016-09-02 11:26] LABS: ALBUMIN/GLOBULIN RATIO 0.6 (1.0-1.7); CALCIUM 9.4 mg/dL (8.5-10.1); CREATININE 1.1 mg/dL (0.6-1.0); GFR 50.8; POTASSIUM 3.7 mmol/L (3.5-5.1); TOTAL BILIRUBIN 0.3 mg/dL (0.2-1.0); TOTAL PROTEIN 8.1 g/dL (6.4-8.2)
[2016-09-02 11:28] LABS: HCO3 ABG 29 mmol/L (21-28); PCO2 ABG 47 mmHg (35-46); PO2 ABG 78 mmHg (65-108); SAT O2 ABG 95 % (92-99)
[2016-09-02 11:32] LABS: FIO2 ABG 21
--- NOTE | 2016-09-02 18:39 | RAD ---
CHEST PA LATERAL Clinical Indication: Presurgical evaluation Comparison: Chest radiograph dated 07/29/2016 Findings: Normal lung volume. Right basilar heterogeneous air space opacities. Normal pulmonary vasculature. No pleural effusion or pneumothorax. The cardiomediastinal silhouette is normal. The great vessels of the thorax are normal. Cholecystectomy. Mild multilevel degenerative changes of the visualized spine. Suggestion of diffuse osteopenia. IMPRESSION: 1. Right basilar heterogeneous air space opacities. Findings may relate to atelectasis or scarring, although an underlying infectious process would be difficult to exclude.
== END | disposition home or self-care (01) ==
LOC: US 10:15
PROVIDERS: ATTEND Thoracic Surgery (Cardiothoracic Vascular Surgery)
DX: Z01.818 Encounter for other preprocedural examination (principal); I25.10 Atherosclerotic heart disease of native coronary artery without angina pectoris
CPT/HCPCS: 36415; 36600; 71020; 80053; 82805; 83036; 85027; 85610; 85730; 87641; 93005

== ENCOUNTER → 2016-09-03 | Outpatient (CLI) | payer OTHER ==
[2016-08-06 15:34] VITALS: BP 192/92
--- NOTE | 2016-09-03 17:46 | RAD ---
Bilateral lower extremity vein mapping, 09/03/2016: History: Preop CABG planning Grayscale and color imaging of the saphenous veins in both lower extremities was performed. On the right, the greater saphenous vein is patent measuring 2.2 to 7.9 mm in diameter in the thigh and 1.7 to 1.9 mm in diameter in the lower leg. The right lesser saphenous vein is patent measuring 1.2 to 1.4 mm. On the left, the greater saphenous vein is patent measuring 1.5 to 7.6 mm in diameter in the thigh and 1.5 to 1.8 mm in diameter in the lower leg. The left lesser saphenous vein is patent measuring 1.1 to 2.2 mm. IMPRESSION: Patent bilateral greater saphenous and lesser saphenous veins as described above and fully delineated on the technologists worksheet available in the [employer] PACS system.
--- NOTE | 2016-09-03 17:54 | RAD ---
Carotid ultrasound, 09/03/2016: History: Atherosclerotic disease, preop for planned CABG Duplex evaluation of the carotid arteries in the neck was performed including grayscale, color-flow and spectral Doppler analysis. There is moderate intimal thickening in both common carotid arteries with moderate calcified plaque at both carotid bifurcations. On the right, the peak systolic velocity in the internal carotid artery is 136 cm/s with an end-diastolic velocity of 40 cm/s. The internal carotid artery to common carotid artery ratio is 1.8. The majority of the Doppler findings suggest narrowing in the 50-70% diameter range. There is a velocity acceleration in the right external carotid artery up to 213 cm/s. On the left, the peak systolic velocity in the internal carotid artery is 209 cm/s with an end-diastolic velocity of 41 cm/s. The internal carotid artery to common carotid artery ratio is 2.9. The Doppler findings on the left also suggest narrowing in the 50-70% diameter range. There is a velocity acceleration in the left external carotid artery up to 170 cm/s. Antegrade flow is present in both vertebral arteries in the neck. IMPRESSION: Moderate atherosclerotic plaquing at both carotid bifurcations, left greater than right, with underlying luminal narrowing in the 50-70% diameter range bilaterally. Note: Stenosis calculations for CT, MRA and conventional angiography are based upon determination of the distal ICA diameter in accordance with the NASCET methodology. Stenosis calculations for Doppler studies are derived from validated velocity criteria which are known to correlate with NASCET methodology of determining stenosis.
== END | disposition home or self-care (01) ==
LOC: RAD 13:24
PROVIDERS: ATTEND Thoracic Surgery (Cardiothoracic Vascular Surgery)
DX: Z01.818 Encounter for other preprocedural examination (principal); I65.23 Occlusion and stenosis of bilateral carotid arteries
CPT/HCPCS: 93880; 93970

== ENCOUNTER 2016-09-06 08:00 | Inpatient (IN) | payer OTHER ==
[~2016-09-06] VITALS: Ht 154.9 cm; Wt 58.1 kg
[2016-09-09] MEDS ORDERED: POTASSIUM CHLORIDE 70 MEQ, SODIUM BICARBONATE VIAL 12.5 MEQ, LIDOCAINE 2% 24 ML in IV E... IRR ONE (06:00)
[2016-09-09] MEDS ORDERED: HEPARIN 20,000 UNIT in IV RINGERS,LACTATED 1000ML 1,000 ML IRR ONE (06:00)
[2016-09-09] MEDS ORDERED: POTASSIUM CHLORIDE 15 MEQ, SODIUM BICARBONATE VIAL 12.5 MEQ in IV ELECTROLYTE-S (PH 7.4... IRR ONE (06:00)
[2016-09-09] MEDS ORDERED: METOPROLOL TART IMMED RELEASE 25 MG TABLET. ONE (06:19)
[2016-09-09 06:22] LABS: HEMATOCRIT 34.2 % (36.0-47.0); HEMOGLOBIN 11.4 g/dL (12.0-15.5)
[2016-09-09] MEDS ORDERED: METOPROLOL TART IMMED RELEASE 25 MG TABLET. PO ONE (06:45)
[2016-09-09] MEDS ORDERED: PHENYLEPHRINE 10 MG/ML VIAL. ONE (06:53)
[2016-09-09] MEDS ORDERED: ETOMIDATE 20 MG/10 ML VIAL. IV ONE (06:53)
[2016-09-09] MEDS ORDERED: SUFentanil 250 MCG/5 ML AMPUL. ONE (06:53)
[2016-09-09] MEDS ORDERED: PROPOFOL 20 ML IV ONE (06:53)
[2016-09-09] MEDS ORDERED: LIDOCAINE 2% PF Vial for OR 5 ML VIAL. ONE (06:53)
[2016-09-09] MEDS ORDERED: NITROGLYCERIN PREMIX 0 ML IV ONE (06:53)
[2016-09-09] MEDS ORDERED: AMINOCAPROIC ACID 5,000 MG/20 ML VIAL. IV ONE ×2 (06:53→13:13)
[2016-09-09] MEDS ORDERED: ROCURONIUM 100 MG/10 ML VIAL. ONE ×2 (06:54→10:30)
[2016-09-09] MEDS ORDERED: EPINEPHrine 1 MG/ML VIAL ONE (06:54)
[2016-09-09] MEDS ORDERED: HEPARIN 30,000 UNIT/30 ML VIAL. ONE ×3 (06:55→13:13)
[2016-09-09] MEDS ORDERED: PAPAVERINE 60 MG/2 ML VIAL FOR OR ONLY. ONE (06:58)
[2016-09-09] MEDS ORDERED: 0.9 % SODIUM CHLORIDE 50 ML VIAL. IJ ONE (06:58)
[2016-09-09] MEDS ORDERED: SURGICEL HEMOSTAT 4X8 EACH. ONE (06:58)
[2016-09-09] MEDS ORDERED: MINERAL OIL 10 ML VIAL MC ONE (06:58)
[2016-09-09] MEDS ORDERED: ASPIRIN 300 MG SUPP.RECT ONE (06:58)
[2016-09-09] MEDS ORDERED: ONDANSETRON PF 4 MG/2 ML VIAL. IV PRN ×2 (07:00→13:00)
[2016-09-09] MEDS ORDERED: fentaNYL PF VIAL 100 MCG/2 ML VIAL IV PRN ×2 (07:00)
[2016-09-09] MEDS ORDERED: PROCHLORPERAZINE 10 MG/2 ML VIAL. IV PRN (07:00)
[2016-09-09] MEDS ORDERED: LIDOCAINE 1% 1 ML SYRINGE. ID PRN (07:00)
[2016-09-09] MEDS ORDERED: IV RINGERS,LACTATED 1000ML 1,000 ML IV SCH (07:00)
[2016-09-09] MEDS ORDERED: fentaNYL PF VIAL 250 MCG/5 ML VIAL ONE (07:02)
[2016-09-09] MEDS ORDERED: MIDAZOLAM HCL/PF 5 MG/5 ML VIAL. ONE (07:08)
[2016-09-09] MEDS ORDERED: MANNITOL 20% PREMIX 500 ML IV ONE (08:00)
[2016-09-09] MEDS ORDERED: NOREPINEPHRIN PREMIX 250 ML IV ONE (08:30)
[2016-09-09] MEDS ORDERED: MILRINONE 20MG/100ML PREMIX 100 ML IV ONE (08:45)
[2016-09-09] MEDS ORDERED: INSULIN REGULAR VIAL 150 UNIT in 0.9 % SODIUM CHLORIDE 150ML 150 ML IV ONE (08:45)
[2016-09-09 08:53] LABS: HEMATOCRIT 33.2 % (36.0-47.0)
[2016-09-09] MEDS ORDERED: EPINEPHrine VIAL 30 MG/30 ML VIAL ONE ×2 (09:34→14:08)
[2016-09-09] MEDS ORDERED: ALBUMIN HUMAN 25% 100 ML IV ONE ×4 (11:37)
--- NOTE | 2016-09-09 12:52 | PDOC2 ---
CONSULT Date of Consult Date of Consult DATE: 09/09/16 TIME: 12:37 Reason for Consult Reason for Consult: medical management Referring Physician Referring Physician: Ignacio Hanson Identification/Chief Complaint Chief Complaint SOB, cardiomyopathy Problems: Source Source: Chart review, Patient History of Present Illness Reason for Visit: The patient is a 60-year-old lady who recently was diagnosed with severe CAD and aortic stenosis, discharged to be readmitted for CABG, She is very brittle diabetic ,she also had right pleural effusion which promoted echo that diagnosed her CHF, she does have hot flashes, and feeling fatigued and weak along with weight loss. Past Medical History Cardiovascular: CAD, CHF, HTN, Aortic stenosis, Other (sleep apnea) Pulmonary: COPD, Pulmonary embolus, Other CENTRAL NERVOUS SYSTEM: Other GI: No pertinent hx, GERD Heme/Onc: No pertinent hx Hepatobiliary: No pertinent hx Psych: No pertinent hx, Anxiety, Depression Musculoskeletal: Osteoarthritis Rheumatologic: Fibromyalgia Infectious disease: Other Renal/: No pertinent hx Endocrine: Diabetes Past Surgical History Past Surgical History: Appendectomy, Cholecystectomy, Hysterectomy, Other (AAA repair, femeropopliteal bypass) Family History Family History: Alcohol Abuse, Cancer, Hypertension Social History Quit ALCOHOL: rare Drugs: None Lives: Alone Current Medications Current Medications Current Medications Ondansetron HCl (Zofran) 4 mg PRN Q6HRS PRN IV NAUSEA/VOMITING; Start 09/09/16 at 07:00; Stop 09/10/16 at 06:59 Fentanyl Citrate (Fentanyl 2ml Vial) 25 mcg PRN Q5MIN PRN IV MILD PAIN; Start 09/09/16 at 07:00; Stop 09/10/16 at 06:59 Fentanyl Citrate (Fentanyl 2ml Vial) 50 mcg PRN Q5MIN PRN IV MODERATE PAIN; Start 09/09/16 at 07:00; Stop 09/10/16 at 06:59 Ringer's Solution 1,000 ml @ 30 mls/hr Q24H IV Last administered on 09/09/16t 06:41; Start 09/09/16 at 07:00; Stop 09/09/16 at 18:59 Lidocaine HCl 2 ml PRN 1X PRN ID PRIOR TO IV START; Start 09/09/16 at 07:00; Stop 09/10/16 at 06:59 Prochlorperazine Edisylate (Compazine) 5 mg PACU PRN PRN IV NAUSEA, MRX1; Start 09/09/16 at 07:00; Stop 09/10/16 at 06:59 Potassium Chloride 70 meq/ Sodium Bicarbonate 12.5 meq/Lidocaine HCl 24 ml/ Parenteral Electrolytes 571.5 ml @ 571.5 mls/ hr 1X PERIOP ONCE IRR Last administered on 09/09/16 09:37; Start 09/09/16 at 06:00; Stop 09/09/16 at 06:59 ; Status DC Potassium Chloride 15 meq/ Sodium Bicarbonate 12.5 meq/Parenteral Electrolytes 520 ml @ 520 mls/hr 1X PERIOP ONCE IRR ; Start 09/09/16 at 06:00; Stop at 06:59; Status DC Heparin Sodium (Porcine) 13023 unit/Ringer's Solution 1,020 ml @ 1,020 mls/hr 1X PERIOP ONCE IRR Last administered on 09/09/16 09:11; Start 09/09/16 at 06: 00; Stop 09/09/16 at 06:59; Status DC Cefazolin Sodium/ Dextrose 50 ml @ 100 mls/hr 1X ONCE IV ; Start 09/09/16 at 06:00; Stop 09/09/16 at 06:29; Status DC Metoprolol Tartrate (Lopressor) 25 mg STK-MED ONCE .ROUTE ; Start 09/09/16 at 06 :19; Stop 09/09/16 at 06:20; Status DC Metoprolol Tartrate (Lopressor) 25 mg ONCE ONCE PO Last administered on 06:40; Start 09/09/16 at 06:45; Stop 09/09/16 at 06:46; Status DC Etomidate (Amidate) 20 mg STK-MED ONCE IV ; Start 09/09/16 at 06:53; Stop at 06:54; Status DC Phenylephrine HCl (Will-Synephrine Inj) 10 mg STK-MED ONCE .ROUTE ; Start at 06:53; Stop 09/09/16 at 06:54; Status DC Propofol 20 ml @ As Directed STK-MED ONCE IV ; Start 09/09/16 at 06:53; Stop at 06:54; Status DC Lidocaine HCl (Lidocaine Pf 2% Vial) 5 ml STK-MED ONCE .ROUTE ; Start 09/09/16 at 06:53; Stop 09/09/16 at 06:54; Status DC Aminocaproic Acid (Amicar) 5,000 mg STK-MED ONCE IV ; Start 09/09/16 at 06:53; Stop 09/09/16 at 06:54; Status DC Nitroglycerin/ Dextrose 250 ml @ As Directed STK-MED ONCE IV ; Start 09/09/16 at 06:53; Stop 09/09/16 at 06:54; Status DC Sufentanil Citrate (Sufenta) 250 mcg STK-MED ONCE .ROUTE ; Start 09/09/16 at 06: 53; Stop 09/09/16 at 06:54; Status DC Epinephrine HCl (Adrenalin) 1 mg STK-MED ONCE .ROUTE ; Start 09/09/16 at 06:54; Stop 09/09/16 at 06:55; Status DC Rocuronium [place] (Zemuron) 100 mg STK-MED ONCE .ROUTE ; Start 09/09/16 at 06: 54; Stop 09/09/16 at 06:55; Status DC Heparin Sodium (Porcine) 30,000 unit STK-MED ONCE .ROUTE ; Start 09/09/16 at 06: 55; Stop 09/09/16 at 06:56; Status DC Cellulose 1 each STK-MED ONCE .ROUTE Last administered on 09/09/16 09:11; Start 09/09/16 at 06:58; Stop 09/09/16 at 06:59; Status DC Papaverine HCl 60 mg STK-MED ONCE .ROUTE Last administered on 09/09/16 09:11; Start 09/09/16 at 06:58; Stop 09/09/16 at 06:59; Status DC Aspirin (Aspirin) 300 mg STK-MED ONCE .ROUTE Last administered on 09/09/16 10: 18; Start 09/09/16 at 06:58; Stop 09/09/16 at 06:59; Status DC Mineral Oil (Muri-Lube) 10 ml STK-MED ONCE MC Last administered on 09/09/16 12 :29; Start 09/09/16 at 06:58; Stop 09/09/16 at 06:59; Status DC Sodium Chloride (Sodium Chloride) 50 ml STK-MED ONCE IJ Last administered on 7/ 31/17at 09:11; Start 09/09/16 at 06:58; Stop 09/09/16 at 06:59; Status DC Fentanyl Citrate (Fentanyl 5ml Vial) 250 mcg STK-MED ONCE .ROUTE ; Start at 07:02; Stop 09/09/16 at 07:03; Status DC Midazolam HCl (Versed) 5 mg STK-MED ONCE .ROUTE ; Start 09/09/16 at 07:08; Stop 09/09/16 at 07:09; Status DC Heparin Sodium (Porcine) 30,000 unit STK-MED ONCE .ROUTE ; Start 09/09/16 at 07: 15; Stop 09/09/16 at 07:16; Status DC Mannitol 500 ml @ 12.5 mls/hr 1X ONCE IV ; Start 09/09/16 at 08:00; Stop at 23:59 Ephedrine Sulfate (Akovaz) 50 mg STK-MED ONCE .ROUTE ; Start 09/09/16 at 08:21; Stop 09/09/16 at 08:22; Status DC Norepinephrine Bitartrate 250 ml @ 0 mls/hr 1X ONCE IV ; Start 09/09/16 at 08: 30; Stop 09/09/16 at 08:32; Status DC Milrinone Lactate/ Dextrose 100 ml @ 0 mls/hr 1X ONCE IV ; Start 09/09/16 at 08 :45; Stop 09/09/16 at 08:46; Status DC Insulin Human Regular 150 unit/ Sodium Chloride 151.5 ml @ 0 mls/hr 1X ONCE IV ; Start 09/09/16 at 08:45; Stop 09/09/16 at 08:46; Status DC Epinephrine HCl (Adrenalin) 30 mg STK-MED ONCE .ROUTE ; Start 09/09/16 at 09:34 ; Stop 09/09/16 at 09:35; Status DC Rocuronium [place] (Zemuron) 100 mg STK-MED ONCE .ROUTE ; Start 09/09/16 at 10: 30; Stop 09/09/16 at 10:31; Status DC Albumin Human 100 ml @ As Directed STK-MED ONCE IV ; Start 09/09/16 at 11:37; Stop 09/09/16 at 11:38; Status DC Albumin Human 100 ml @ As Directed STK-MED ONCE IV ; Start 09/09/16 at 11:37; Stop 09/09/16 at 11:38; Status DC Albumin Human 100 ml @ As Directed STK-MED ONCE IV ; Start 09/09/16 at 11:37; Stop 09/09/16 at 11:38; Status DC Albumin Human 100 ml @ As Directed STK-MED ONCE IV ; Start 09/09/16 at 11:37; Stop 09/09/16 at 11:38; Status DC Active Scripts Active Xanax (Alprazolam) 0.5 Mg Tablet 1 Tab PO BID Novolog Flexpen (Insulin Aspart) 100 Unit/1 Ml Insuln.pen 5 Unit SQ TIDWMEALS 30 Days Levemir (Insulin Detemir) 100 Unit/1 Ml Vial 20 Unit SQ HS 30 Days Pantoprazole Sodium 40 Mg Tablet.dr 40 Mg PO DAILYAC 30 Days Reported Tylenol (Acetaminophen) 325 Mg Tablet 650 Mg PO PRN Q6HRS PRN Oxycodone Hcl 15 Mg Tablet 15 Mg PO PRN Q6HRS PRN Trazodone Hcl 50 Mg Tablet 100 Mg PO HS Chantix (Varenicline Tartrate) 1 Mg Tablet 1 Mg PO BID Cymbalta (Duloxetine Hcl) 60 Mg Capsule.dr 1 Cap PO BID Gabapentin 600 Mg Tablet 600 Mg PO TID Ambien (Zolpidem Tartrate) 10 Mg Tablet 1 Tab PO QHS NICODERM CQ 14mg (Nicotine) 1 Each Patch.td24 1 Patch TP DAILY Pentoxifylline 400 Mg Tablet.er 400 Mg PO BIDWMEALS Aspir-Low (Aspirin) 81 Mg Tablet.dr 1 Tab PO DAILY Voltaren (Diclofenac Sodium) 100 Gm Gel..gram. 1 Gm TP QID Allergies Allergies: Coded Allergies: No Known Medication Allergies (Verified Allergy, Unknown, 09/06/16) hydrocodone (Verified Adverse Reaction, Intermediate, LOOPY, 09/09/16) N/V ROS General: YES: Fatigue PSYCHOLOGICAL ROS: YES: Anxiety, Sleep disturbances HEENT: YES: Heacaches Respiratory: YES: SOB with excertion Cardiovascular: yes Edema Genitourinary: YES Incontinence Musculoskeletal: Yes Joint Pain, Yes Joint Stiffness Physical Exam General: Alert, Oriented X3 HEENT: Atraumatic, PERRLA Lungs: Other (decrease BS R base) Heart: Regular rate Abdomen: Normal bowel sounds, Soft, No tenderness Skin: No rashes Neuro: Normal gait, Normal speech, Normal tone MUSCULOSKELETAL: No deformity Vitals VITALS Vital Signs Date Time Temp Pulse Resp B/P (MAP) Pulse Ox O2 Delivery O2 Flow Rate FiO2 09/09/16 06:40 83 178/80 09/09/16 06:22 Room Air 09/09/16 06:20 97.1 20 100 97.1 Labs Labs Laboratory Tests Test 09/09/16 06:14 09/09/16 06:15 09/09/16 08:45 Glucose (Fingerstick) 152 mg/dL (70-99) Hemoglobin 11.4 g/dL (12.0-15.5) 11.0 g/dL (12.0-15.5) Hematocrit 34.2 % (36.0-47.0) 33.2 % (36.0-47.0) Mean Corpuscular Hemoglobin Concent 34 g/dL (31-37) Laboratory Tests Test 09/09/16 06:14 09/09/16 06:15 09/09/16 08:45 Glucose (Fingerstick) 152 mg/dL (70-99) Hemoglobin 11.4 g/dL (12.0-15.5) 11.0 g/dL (12.0-15.5) Hematocrit 34.2 % (36.0-47.0) 33.2 % (36.0-47.0) Mean Corpuscular Hemoglobin Concent 34 g/dL (31-37) Assessment/Plan Assessment/Plan 1- Severe CAD admitted for CABG 2-ischemic cardiomyopathy 3-aortic stenosis 4. Weight loss. 5. Diabetes mellitus type 2, insulin requiring. 6. Coronary artery disease. 7. Peripheral vascular disease, rather severe for her age. 8. Osteoarthritis. 9. R pleural effusion will follow with you and assist in medical management as needed JOSH GANT MD Sep 09, 2016 12:52
[2016-09-09] MEDS ORDERED: DEXTROSE 50% 25 GM / 50ML DISP.SYRIN. IV PRN (13:00)
[2016-09-09] MEDS ORDERED: IV NORMAL SALINE 1000ML BAG 1,000 ML IV SCH (13:00)
[2016-09-09] MEDS ORDERED: BISACODYL 10 MG SUPP.RECT. PR PRN (13:00)
[2016-09-09] MEDS ORDERED: PROPOFOL 100 ML IV PRN (13:00)
[2016-09-09] MEDS ORDERED: MEPERIDINE PF 25 MG/ML VIAL. IV PRN (13:00)
[2016-09-09] MEDS ORDERED: ELECTROLYTE (ICU) PROTOCOL. MC PRN (13:00)
[2016-09-09] MEDS ORDERED: ALBUTEROL SULFATE 2.5 MG/3 ML NEBU. NEB PRN (13:00)
[2016-09-09] MEDS ORDERED: 0.9 % SODIUM CHLORIDE 10 ML DISP.SYRIN. IV PRN (13:00)
[2016-09-09] MEDS ORDERED: KCL PER PROTOCOL MC PRN (13:00)
[2016-09-09] MEDS ORDERED: ASPIRIN 300 MG SUPP.RECT PR PRN (13:00)
[2016-09-09] MEDS ORDERED: INSULIN REGULAR VIAL 150 UNIT in 0.9 % SODIUM CHLORIDE 150ML 150 ML IV PRN (13:00)
[2016-09-09] MEDS ORDERED: CLEVIDIPINE BUTYRATE 100 ML IV PRN (13:00)
[2016-09-09] MEDS ORDERED: MAGNESIUM SULFATE 1GM 100 ML IV PRN (13:00)
[2016-09-09] MEDS ORDERED: ACETAMINOPHEN 325 MG TABLET. PO PRN (13:00)
[2016-09-09] MEDS ORDERED: PROTAMINE 50 MG/5 ML VIAL. IV ONE ×2 (13:09→14:04)
[2016-09-09] MEDS ORDERED: CALCIUM CHLORIDE 1,000 MG/10 ML DISP.SYRIN IV ONE (13:13)
[2016-09-09] MEDS ORDERED: MAGNESIUM SULFATE 5 GM/10 ML VIAL. ONE (13:13)
[2016-09-09] MEDS ORDERED: LIDOCAINE 1% PF 5 ML VIAL. ONE (13:13)
[2016-09-09] MEDS ORDERED: ALBUMIN HUMAN 25% IV ONE (13:13)
[2016-09-09 13:37] LABS: HEMATOCRIT 13.9 % (36.0-47.0); HEMOGLOBIN 5.1 g/dL (12.0-15.5); WHITE BLOOD COUNT 7.1 x10^3/uL (4.0-11.0)
[2016-09-09 13:40] LABS: ART BE ISTAT 15 mmol/L (0-3); ART GLUC ISTAT 60 mg/dL (70-99); ART HCO3 ISTAT 37 mmol/L (21-28); ART HCT ISTAT 30 % (36-40); ART HGB ISTAT 10.2 g/dL (12-15); ART ION CA ISTAT 1.16 mmol/L (1.13-1.32); ART K ISTAT 3.6 mmol/L (3.5-5.0); ART NA ISTAT 135 mmol/L (135-145); ART PCO2 ISTAT 37 mmHg (35-45); ART PH ISTAT 7.61 (7.35-7.45); ART PO2 ISTAT 540 mmHg (75-100); ART SAT O2 SAT 100 % (95-99); ART TCO2 ISTAT 38 mmol/L (21-32); TOSPEC ART
[2016-09-09 13:40] LABS: ART BE ISTAT 3 mmol/L (0-3); ART GLUC ISTAT 182 mg/dL (70-99); ART HCO3 ISTAT 26 mmol/L (21-28); ART HCT ISTAT 18 % (36-40); ART HGB ISTAT 6.1 g/dL (12-15); ART ION CA ISTAT 1.04 mmol/L (1.13-1.32); ART K ISTAT 4.4 mmol/L (3.5-5.0); ART NA ISTAT 132 mmol/L (135-145); ART PCO2 ISTAT 34 mmHg (35-45); ART PO2 ISTAT 649 mmHg (75-100); ART SAT O2 SAT 100 % (95-99); ART TCO2 ISTAT 27 mmol/L (21-32); TOSPEC ART
[2016-09-09 13:40] LABS: FIO2 ISTAT 100; TOSPEC BLNK; VEN BASE EXCESS ISTAT 2 mmol/L (0-3); VEN GLUC ISTAT 157 mg/dL (70-99); VEN HCO3 ISTAT 27 mmol/L (24-28); VEN HCT ISTAT 22 % (36-40); VEN HGB ISTAT 7.5 g/dL (12-15); VEN ION CA ISTAT 1.58 mmol/L (1.13-1.32); VEN K ISTAT 3.8 mmol/L (3.5-5.0); VEN NA ISTAT 137 mmol/L (135-145); VEN O2 ISTAT 588 mmHg (20-40); VEN PCO2 ISTAT 46 mmHg (41-51); VEN PH ISTAT 7.37 (7.32-7.42); VEN SO2 ISTAT 100 %; VEN TCO2 ISTAT 28 mmol/L (21-32)
[2016-09-09 13:40] LABS: ART BE ISTAT 0 mmol/L (0-3); ART GLUC ISTAT 141 mg/dL (70-99); ART HCO3 ISTAT 25 mmol/L (21-28); ART HCT ISTAT 15 % (36-40); ART HGB ISTAT 5.1 g/dL (12-15); ART ION CA ISTAT 1.01 mmol/L (1.13-1.32); ART K ISTAT 4.4 mmol/L (3.5-5.0); ART NA ISTAT 133 mmol/L (135-145); ART PCO2 ISTAT 40 mmHg (35-45); ART PO2 ISTAT 572 mmHg (75-100); ART SAT O2 SAT 100 % (95-99); ART TCO2 ISTAT 26 mmol/L (21-32); TOSPEC ART
[2016-09-09 13:41] LABS: ART BE ISTAT 4 mmol/L (0-3); ART GLUC ISTAT 113 mg/dL (70-99); ART HCO3 ISTAT 30 mmol/L (21-28); ART HCT ISTAT 20 % (36-40); ART HGB ISTAT 6.8 g/dL (12-15); ART ION CA ISTAT 1.42 mmol/L (1.13-1.32); ART K ISTAT 4.1 mmol/L (3.5-5.0); ART NA ISTAT 137 mmol/L (135-145); ART PCO2 ISTAT 51 mmHg (35-45); ART PH ISTAT 7.37 (7.35-7.45); ART PO2 ISTAT 449 mmHg (75-100); ART SAT O2 SAT 100 % (95-99); ART TCO2 ISTAT 31 mmol/L (21-32); TOSPEC ART
[2016-09-09 13:41] LABS: ART BE ISTAT 4 mmol/L (0-3); ART GLUC ISTAT 112 mg/dL (70-99); ART HCO3 ISTAT 29 mmol/L (21-28); ART HCT ISTAT 16 % (36-40); ART HGB ISTAT 5.4 g/dL (12-15); ART ION CA ISTAT 1.24 mmol/L (1.13-1.32); ART K ISTAT 3.9 mmol/L (3.5-5.0); ART NA ISTAT 138 mmol/L (135-145); ART PCO2 ISTAT 47 mmHg (35-45); ART PH ISTAT 7.39 (7.35-7.45); ART PO2 ISTAT 400 mmHg (75-100); ART SAT O2 SAT 100 % (95-99); ART TCO2 ISTAT 30 mmol/L (21-32); TOSPEC ART
[2016-09-09 13:41] LABS: ART BE ISTAT 4 mmol/L (0-3); ART GLUC ISTAT 78 mg/dL (70-99); ART HCO3 ISTAT 28 mmol/L (21-28); ART HCT ISTAT 24 % (36-40); ART HGB ISTAT 8.2 g/dL (12-15); ART ION CA ISTAT 0.92 mmol/L (1.13-1.32); ART K ISTAT 4.3 mmol/L (3.5-5.0); ART NA ISTAT 137 mmol/L (135-145); ART PCO2 ISTAT 44 mmHg (35-45); ART PH ISTAT 7.42 (7.35-7.45); ART PO2 ISTAT 583 mmHg (75-100); ART SAT O2 SAT 100 % (95-99); ART TCO2 ISTAT 29 mmol/L (21-32); TOSPEC ART
[2016-09-09 13:41] LABS: ART BE ISTAT -4 mmol/L (0-3); ART GLUC ISTAT 175 mg/dL (70-99); ART HCO3 ISTAT 22 mmol/L (21-28); ART HCT ISTAT 23 % (36-40); ART HGB ISTAT 7.8 g/dL (12-15); ART ION CA ISTAT 0.97 mmol/L (1.13-1.32); ART NA ISTAT 132 mmol/L (135-145); ART PCO2 ISTAT 41 mmHg (35-45); ART PH ISTAT 7.34 (7.35-7.45); ART PO2 ISTAT 598 mmHg (75-100); ART SAT O2 SAT 100 % (95-99); ART TCO2 ISTAT 23 mmol/L (21-32); TOSPEC ART
[2016-09-09 13:41] LABS: FIO2 ISTAT 100; TOSPEC VEN; VEN BASE EXCESS ISTAT -3 mmol/L (0-3); VEN GLUC ISTAT 109 mg/dL (70-99); VEN HCO3 ISTAT 23 mmol/L (24-28); VEN HCT ISTAT 27 % (36-40); VEN HGB ISTAT 9.2 g/dL (12-15); VEN ION CA ISTAT 1.03 mmol/L (1.13-1.32); VEN NA ISTAT 136 mmol/L (135-145); VEN O2 ISTAT 37 mmHg (20-40); VEN PCO2 ISTAT 44 mmHg (41-51); VEN PH ISTAT 7.32 (7.32-7.42); VEN SO2 ISTAT 65 %; VEN TCO2 ISTAT 24 mmol/L (21-32)
[2016-09-09 13:42] LABS: ART BE ISTAT 7 mmol/L (0-3); ART GLUC ISTAT 109 mg/dL (70-99); ART HCO3 ISTAT 31 mmol/L (21-28); ART HCT ISTAT 18 % (36-40); ART HGB ISTAT 6.1 g/dL (12-15); ART ION CA ISTAT 1.74 mmol/L (1.13-1.32); ART K ISTAT 4.4 mmol/L (3.5-5.0); ART NA ISTAT 135 mmol/L (135-145); ART PCO2 ISTAT 45 mmHg (35-45); ART PH ISTAT 7.44 (7.35-7.45); ART PO2 ISTAT 559 mmHg (75-100); ART SAT O2 SAT 100 % (95-99); ART TCO2 ISTAT 32 mmol/L (21-32); TOSPEC ART
[2016-09-09 13:42] LABS: ART BE ISTAT 5 mmol/L (0-3); ART GLUC ISTAT 63 mg/dL (70-99); ART HCO3 ISTAT 29 mmol/L (21-28); ART HCT ISTAT 19 % (36-40); ART HGB ISTAT 6.5 g/dL (12-15); ART ION CA ISTAT 0.97 mmol/L (1.13-1.32); ART K ISTAT 4.9 mmol/L (3.5-5.0); ART NA ISTAT 136 mmol/L (135-145); ART PCO2 ISTAT 43 mmHg (35-45); ART PH ISTAT 7.44 (7.35-7.45); ART PO2 ISTAT 540 mmHg (75-100); ART SAT O2 SAT 100 % (95-99); ART TCO2 ISTAT 31 mmol/L (21-32); TOSPEC ART
[2016-09-09 13:45] LABS: INR 2.2 (0.8-1.1)
[2016-09-09 13:54] LABS: PROTHROMBIN TIME PATIENT 22.7 SEC (11.7-14.0)
[2016-09-09] MEDS ORDERED: ceFAZolin 2GM PREMIX 2 GM/50 ML BAG IV ONE (14:00)
[2016-09-09] MEDS ORDERED: ISOFLURANE > 120 MINUTES. IH ONE (14:08)
--- NOTE | 2016-09-09 14:19 | PDOC ---
BRIEF OPERATIVE NOTE Date: Sep 09, 2016 Pre-Op Diagnosis CAD, CHF severe cardiomyopathy, EF 25% Post-Op Diagnosis same Procedure Performed CABG X 4 with SVG to LAD SVG to OM SVG to PDA then to PL Branch Repair of right Subclavian Vein injury Surgeon Victor Manuel Hunter MD [employer] Bi Developer Maria T Cast MD Anesthesiologist Unruly Anesthesia Type: General Blood Loss See perfusion record 3 liters of blood removed from right pleural space IV Fluid see anesthesia record Urine Output appropriate Specimens Obtained clotted blood from right pleural space Findings good conduit quality extensive adhesions of pericardium to heart from pericarditis Complications Injury to Right subclavian vein due to IJ vein catheter placement DALTON HUNTER MD Sep 09, 2016 14:19
[2016-09-09 14:30] VITALS: BP 162/68
[2016-09-09] MEDS ORDERED: NITROGLYCERIN PREMIX 250 ML IV ONE (14:59)
--- NOTE | 2016-09-09 15:15 | RAD ---
Portable chest, 09/09/2016: History: Postop evaluation, open heart surgery Comparison is made to a study from 09/02/2016. Sternal wires are now in place. The ET tube tip lies well above the bhavik. A right jugular [place] catheter tip overlies the medial right hilum. Two mediastinal drains and a right chest tube are in place. The heart size and pulmonary vascularity are normal. The left chest is clear. There is blunting of the right lateral costophrenic angle with a minimal underlying parenchymal opacities similar to that seen on 09/02/2016. This probably represents scarring. No pneumothorax is seen. A lateral rib fracture on the lower left appears to be old. There is a nonhealed fracture of the left humeral neck. Underlying lucent and sclerotic foci raise the possibility that it may have been pathologic, related to a pre-existing chondroid lesion such as an enchondroma. IMPRESSION: 1. Numerous tubes and catheters are now in place as described above. 2. Unchanged pleural/parenchymal opacities in the right lateral costophrenic angle, probably due to scarring.
[2016-09-09 15:18] LABS: BASE EXCESS COOX 1 mmol/L (-3-3); CARBON MONOXIDE 0.3 % (0.0-1.9); FIO2 COOX 100; HCO3 COOX 24 mmol/L (21-28); METHEMOGLOBIN 0.4 % (0.0-1.9); OXYHEMOGLOBIN 97.9 %; PCO2 COOX 34 mmHg (35-46); PH COOX 7.47 (7.35-7.45); PO2 COOX 374 mmHg (65-108); SAT O2 COOX 99 % (92-99); TOTAL HEMOGLOBIN 10.2 g/dL
[2016-09-09] MEDS: MORPHINE SULFATE 2 MG/ML DISP.SYRIN. IV PRN ×2 (15:18→21:29)
[2016-09-09] MEDS: ALBUMIN HUMAN 5% 250 ML IV PRN ×3 (15:19→19:13)
[2016-09-09] MEDS: MILRINONE 20MG/100ML PREMIX 100 ML IV PRN ×2 (15:20→19:42)
--- NOTE | 2016-09-09 15:24 | EKG ---
[facility] [address] [place] [address] Test Date: 2016-09-09 Test Time: 15:21:14 Pat Name: LEIDA MANCERA Department: Room: 103 1 Gender: F National Sales: CARMEL : 1955 Requested By: MARTHA PEREIRA Order Number: [id number] Reading MD: Buck Rodriguez Measurements Intervals [place] Rate: 84 P: 90 MD: 156 QRS: 121 QRSD: 136 T: -52 QT: 440 QTc: 524 Interpretive Statements SINUS RHYTHM LPFB RBBB NON-SPECIFIC ST/T CHANGES Electronically Signed On 09-12-2016 7:54:08 CDT by Buck Rodriguez
[2016-09-09 15:29] LABS: HEMOGLOBIN 9.2 g/dL (12.0-15.5); RED BLOOD COUNT 3.09 x10^6/uL (3.50-5.40); RED CELL DISTRIBUTION WIDTH 14.9 % (11.5-14.5); WHITE BLOOD COUNT 9.9 x10^3/uL (4.0-11.0)
[2016-09-09 15:39] LABS: INR 1.4 (0.8-1.1); PROTHROMBIN TIME PATIENT 16.3 SEC (11.7-14.0)
[2016-09-09] MEDS: IV RINGERS,LACTATED 1000ML 1,000 ML IV SCH (15:42)
[2016-09-09 15:43] LABS: CALCIUM 9.6 mg/dL (8.5-10.1); CREATININE 0.9 mg/dL (0.6-1.0); GFR 64.1; MAGNESIUM 2.2 mg/dL (1.8-2.4); POTASSIUM 3.9 mmol/L (3.5-5.1)
[2016-09-09] MEDS ORDERED: NITROGLYCERIN PREMIX 250 ML IV PRN (15:45)
--- NOTE | 2016-09-09 16:39 | PDOC2 ---
CONSULT Date of Consult Date of Consult DATE: 09/09/16 TIME: 16:32 Reason for Consult Reason for Consult: coronary artery disease Referring Physician Referring Physician: Dr. Hunter Identification/Chief Complaint Chief Complaint chest pain Problems: History of Present Illness Reason for Visit: Patient with a history of CAD that comes in today for coronary artery bypass with Dr. Hunter. Patient is intubated and sedated at this time. Past Medical History Cardiovascular: CAD, CHF, HTN, Aortic stenosis, Other (sleep apnea) Pulmonary: COPD, Pulmonary embolus, Other CENTRAL NERVOUS SYSTEM: Other GI: No pertinent hx, GERD Heme/Onc: No pertinent hx Hepatobiliary: No pertinent hx Psych: No pertinent hx, Anxiety, Depression Musculoskeletal: Osteoarthritis Rheumatologic: Fibromyalgia Infectious disease: Other Renal/: No pertinent hx Endocrine: Diabetes Past Surgical History Past Surgical History: Appendectomy, Cholecystectomy, Hysterectomy, Other (AAA repair, femeropopliteal bypass) Family History Family History: Alcohol Abuse, Cancer, Hypertension Social History Quit ALCOHOL: rare Drugs: None Lives: Alone Current Medications Current Medications Current Medications Ondansetron HCl (Zofran) 4 mg PRN Q6HRS PRN IV NAUSEA/VOMITING; Start 09/09/16 at 07:00; Stop 09/10/16 at 06:59 Fentanyl Citrate (Fentanyl 2ml Vial) 25 mcg PRN Q5MIN PRN IV MILD PAIN; Start 09/09/16 at 07:00; Stop 09/10/16 at 06:59 Fentanyl Citrate (Fentanyl 2ml Vial) 50 mcg PRN Q5MIN PRN IV MODERATE PAIN; Start 09/09/16 at 07:00; Stop 09/10/16 at 06:59 Ringer's Solution 1,000 ml @ 30 mls/hr Q24H IV Last administered on 09/09/16t 06:41; Start 09/09/16 at 07:00; Stop 09/09/16 at 18:59 Lidocaine HCl 2 ml PRN 1X PRN ID PRIOR TO IV START; Start 09/09/16 at 07:00; Stop 09/10/16 at 06:59 Prochlorperazine Edisylate (Compazine) 5 mg PACU PRN PRN IV NAUSEA, MRX1; Start 09/09/16 at 07:00; Stop 09/10/16 at 06:59 Potassium Chloride 70 meq/ Sodium Bicarbonate 12.5 meq/Lidocaine HCl 24 ml/ Parenteral Electrolytes 571.5 ml @ 571.5 mls/ hr 1X PERIOP ONCE IRR Last administered on 09/09/16 09:37; Start 09/09/16 at 06:00; Stop 09/09/16 at 06:59 ; Status DC Potassium Chloride 15 meq/ Sodium Bicarbonate 12.5 meq/Parenteral Electrolytes 520 ml @ 520 mls/hr 1X PERIOP ONCE IRR ; Start 09/09/16 at 06:00; Stop at 06:59; Status DC Heparin Sodium (Porcine) 53730 unit/Ringer's Solution 1,020 ml @ 1,020 mls/hr 1X PERIOP ONCE IRR Last administered on 09/09/16 09:11; Start 09/09/16 at 06: 00; Stop 09/09/16 at 06:59; Status DC Cefazolin Sodium/ Dextrose 50 ml @ 100 mls/hr 1X ONCE IV Last administered on 09/09/16 09:33; Start 09/09/16 at 06:00; Stop 09/09/16 at 06:29; Status DC Metoprolol Tartrate (Lopressor) 25 mg STK-MED ONCE .ROUTE ; Start 09/09/16 at 06 :19; Stop 09/09/16 at 06:20; Status DC Metoprolol Tartrate (Lopressor) 25 mg ONCE ONCE PO Last administered on 06:40; Start 09/09/16 at 06:45; Stop 09/09/16 at 06:46; Status DC Etomidate (Amidate) 20 mg STK-MED ONCE IV ; Start 09/09/16 at 06:53; Stop at 06:54; Status DC Phenylephrine HCl (Will-Synephrine Inj) 10 mg STK-MED ONCE .ROUTE ; Start at 06:53; Stop 09/09/16 at 06:54; Status DC Propofol 20 ml @ As Directed STK-MED ONCE IV ; Start 09/09/16 at 06:53; Stop at 06:54; Status DC Lidocaine HCl (Lidocaine Pf 2% Vial) 5 ml STK-MED ONCE .ROUTE ; Start 09/09/16 at 06:53; Stop 09/09/16 at 06:54; Status DC Aminocaproic Acid (Amicar) 5,000 mg STK-MED ONCE IV ; Start 09/09/16 at 06:53; Stop 09/09/16 at 06:54; Status DC Nitroglycerin/ Dextrose 0 ml @ As Directed STK-MED ONCE IV ; Start 09/09/16 at 06:53; Stop 09/09/16 at 06:54; Status DC Sufentanil Citrate (Sufenta) 250 mcg STK-MED ONCE .ROUTE ; Start 09/09/16 at 06: 53; Stop 09/09/16 at 06:54; Status DC Epinephrine HCl (Adrenalin) 1 mg STK-MED ONCE .ROUTE ; Start 09/09/16 at 06:54; Stop 09/09/16 at 06:55; Status DC Rocuronium [place] (Zemuron) 100 mg STK-MED ONCE .ROUTE ; Start 09/09/16 at 06: 54; Stop 09/09/16 at 06:55; Status DC Heparin Sodium (Porcine) 30,000 unit STK-MED ONCE .ROUTE ; Start 09/09/16 at 06: 55; Stop 09/09/16 at 06:56; Status DC Cellulose 1 each STK-MED ONCE .ROUTE Last administered on 09/09/16 09:11; Start 09/09/16 at 06:58; Stop 09/09/16 at 06:59; Status DC Papaverine HCl 60 mg STK-MED ONCE .ROUTE Last administered on 09/09/16 09:11; Start 09/09/16 at 06:58; Stop 09/09/16 at 06:59; Status DC Aspirin (Aspirin) 300 mg STK-MED ONCE .ROUTE Last administered on 09/09/16 14: 03; Start 09/09/16 at 06:58; Stop 09/09/16 at 06:59; Status DC Mineral Oil (Muri-Lube) 10 ml STK-MED ONCE MC Last administered on 09/09/16 12 :29; Start 09/09/16 at 06:58; Stop 09/09/16 at 06:59; Status DC Sodium Chloride (Sodium Chloride) 50 ml STK-MED ONCE IJ Last administered on 09:11; Start 09/09/16 at 06:58; Stop 09/09/16 at 06:59; Status DC Fentanyl Citrate (Fentanyl 5ml Vial) 250 mcg STK-MED ONCE .ROUTE ; Start at 07:02; Stop 09/09/16 at 07:03; Status DC Midazolam HCl (Versed) 5 mg STK-MED ONCE .ROUTE ; Start 09/09/16 at 07:08; Stop 09/09/16 at 07:09; Status DC Heparin Sodium (Porcine) 30,000 unit STK-MED ONCE .ROUTE ; Start 09/09/16 at 07: 15; Stop 09/09/16 at 07:16; Status DC Mannitol 500 ml @ 12.5 mls/hr 1X ONCE IV Last administered on 09/09/16 08:00 ; Start 09/09/16 at 08:00; Stop 09/10/16 at 23:59 Ephedrine Sulfate (Akovaz) 50 mg STK-MED ONCE .ROUTE ; Start 09/09/16 at 08:21; Stop 09/09/16 at 08:22; Status DC Norepinephrine Bitartrate 250 ml @ 0 mls/hr 1X ONCE IV Last administered on 08:30; Start 09/09/16 at 08:30; Stop 09/09/16 at 08:32; Status DC Milrinone Lactate/ Dextrose 100 ml @ 0 mls/hr 1X ONCE IV Last administered on 09/09/16 08:45; Start 09/09/16 at 08:45; Stop 09/09/16 at 08:46; Status DC Insulin Human Regular 150 unit/ Sodium Chloride 151.5 ml @ 0 mls/hr 1X ONCE IV Last administered on 09/09/16 15:35; Start 09/09/16 at 08:45; Stop at 08:46; Status DC Epinephrine HCl (Adrenalin) 30 mg STK-MED ONCE .ROUTE ; Start 09/09/16 at 09:34 ; Stop 09/09/16 at 09:35; Status DC Rocuronium [place] (Zemuron) 100 mg STK-MED ONCE .ROUTE ; Start 09/09/16 at 10: 30; Stop 09/09/16 at 10:31; Status DC Albumin Human 100 ml @ As Directed STK-MED ONCE IV ; Start 09/09/16 at 11:37; Stop 09/09/16 at 11:38; Status DC Albumin Human 100 ml @ As Directed STK-MED ONCE IV ; Start 09/09/16 at 11:37; Stop 09/09/16 at 11:38; Status DC Albumin Human 100 ml @ As Directed STK-MED ONCE IV ; Start 09/09/16 at 11:37; Stop 09/09/16 at 11:38; Status DC Albumin Human 100 ml @ As Directed STK-MED ONCE IV ; Start 09/09/16 at 11:37; Stop 09/09/16 at 11:38; Status DC Protamine Sulfate 50 mg STK-MED ONCE IV ; Start 09/09/16 at 13:09; Stop at 13:10; Status DC Lidocaine HCl (Xylocaine-Mpf 1% Vial) 5 ml STK-MED ONCE .ROUTE ; Start 09/09/16 at 13:13; Stop 09/09/16 at 13:14; Status DC Aminocaproic Acid (Amicar) 5,000 mg STK-MED ONCE IV ; Start 09/09/16 at 13:13; Stop 09/09/16 at 13:14; Status DC Magnesium Sulfate 5 gm STK-MED ONCE .ROUTE ; Start 09/09/16 at 13:13; Stop 09/09 at 13:14; Status DC Calcium Chloride 1,000 mg STK-MED ONCE IV ; Start 09/09/16 at 13:13; Stop at 13:14; Status DC Albumin Human 500 ml @ As Directed STK-MED ONCE IV ; Start 09/09/16 at 13:13; Stop 09/09/16 at 13:14; Status DC Heparin Sodium (Porcine) 30,000 unit STK-MED ONCE .ROUTE ; Start 09/09/16 at 13: 13; Stop 09/09/16 at 13:14; Status DC Sodium Chloride (Normal Saline Flush) 3 ml PRN Q12HR PRN IV AFTER MEDS AND BLOOD DRAWS; Start 09/09/16 at 13:00 Albumin Human 250 ml @ 60 mls/hr PRN Q4HRS PRN IV SEE I/O RECORD Last administered on 09/09/16t 15:19; Start 09/09/16 at 13:00 Insulin Human Regular 150 unit/ Sodium Chloride 151.5 ml @ 0 mls/hr CONT PRN PRN IV SEE I/O RECORD; Start 09/09/16 at 13:00 Dextrose (Dextrose 50%-Water Syringe) 25 gm PRN Q15MIN PRN IV LOW BLOOD SUGAR; Start 09/09/16 at 13:00 Amiodarone HCl (Cordarone) 400 mg BID PO ; Start 09/10/16 at 09:00 Info 1 ea CONT PRN PRN MC SEE COMMENTS; Start 09/09/16 at 13:00 Info 1 ea CONT PRN PRN MC SEE COMMENTS; Start 09/09/16 at 13:00 Magnesium Sulfate/ Dextrose 100 ml @ 100 mls/hr PRN DAILY PRN IV FOR MAG < 2.2 ; Start 09/09/16 at 13:00 Ondansetron HCl (Zofran) 4 mg PRN Q4HRS PRN IV NAUSEA/VOMITING; Start 09/09/16 at 13:00 Morphine Sulfate 2 mg PRN Q1HR PRN IV PAIN Last administered on 09/09/16t 15:18 ; Start 09/09/16 at 13:00 Acetaminophen (Tylenol) 650 mg PRN Q4HRS PRN PO MILD PAIN / TEMP; Start at 13:00 Meperidine HCl (Demerol) 12.5 mg PRN Q15MIN PRN IV SHIVERING; Start 09/09/16 at 13:00; Stop 09/10/16 at 12:51 Propofol 100 ml @ 0 mls/hr CONT PRN PRN IV POSTOP SEDATION UNTIL EXTUBATE; Start 09/09/16 at 13:00 Senna/Docusate Sodium (Senna Plus) 1 tab BID PO ; Start 09/09/16 at 21:00 Bisacodyl (Dulcolax Supp) 10 mg PRN DAILY PRN VA NO BOWEL MOVEMENT; Start 09/09 at 13:00 Aspirin (Ecotrin) 325 mg DAILYWBKFT PO ; Start 09/10/16 at 08:00 Aspirin (Aspirin) 300 mg PRN DAILY PRN VA IF UNABLE TO TAKE PO; Start 09/09/16 at 13:00 Albuterol Sulfate (Ventolin Neb Soln) 2.5 mg PRN Q4HRS PRN NEB SHORTNESS OF BREATH; Start 09/09/16 at 13:00 Metoprolol Tartrate (Lopressor) 25 mg BID PO ; Start 09/10/16 at 09:00 Clevidipine 100 ml @ 0 mls/hr CONT PRN IV PER PROTOCOL Last administered on t 15:31; Start 09/09/16 at 13:00 Oxycodone/ Acetaminophen (Percocet 5/325) 1 tab PRN Q4HRS PRN PO MILD PAIN; Start 09/09/16 at 13:00 Oxycodone/ Acetaminophen (Percocet 5/325) 2 tab PRN Q4HRS PRN PO MODERATE PAIN , SEVERE PAIN; Start 09/09/16 at 13:00 Cefazolin Sodium 1 gm/Sodium Chloride 50 ml @ 100 mls/hr Q8H IV ; Start at 15:00; Stop 09/09/16 at 15:00; Status DC Sodium Chloride 1,000 ml @ 0 mls/hr Q0M IV ; Start 09/09/16 at 13:00 Famotidine (Pepcid) 20 mg QHS IVP ; Start 09/09/16 at 21:00 Protamine Sulfate 50 mg STK-MED ONCE IV ; Start 09/09/16 at 14:04; Stop at 14:05; Status DC Cefazolin Sodium 1 gm/Sodium Chloride 50 ml @ 100 mls/hr Q8H IV ; Start at 15:00; Stop 09/09/16 at 16:19; Status DC Isoflurane (Isoflurane) 90 ml STK-MED ONCE IH ; Start 09/09/16 at 14:08; Stop at 14:09; Status DC Epinephrine HCl (Adrenalin) 30 mg STK-MED ONCE .ROUTE ; Start 09/09/16 at 14:08 ; Stop 09/09/16 at 14:09; Status DC Epinephrine HCl 4 mg/Sodium Chloride 254 ml @ 0 mls/hr CONT PRN IV SEE I/O RECORD; Start 09/09/16 at 14:15 Milrinone Lactate/ Dextrose 100 ml @ 0 mls/hr CONT PRN IV SEE I/O RECORD Last administered on 09/09/16t 15:20; Start 09/09/16 at 14:15 Nitroglycerin/ Dextrose 250 ml @ As Directed STK-MED ONCE IV ; Start 09/09/16 at 14:59; Stop 09/09/16 at 15:00; Status DC Nitroglycerin/ Dextrose 250 ml @ 0 mls/hr CONT PRN IV SEE I/O RECORD Last administered on 09/09/16 15:43; Start 09/09/16 at 15:45 Ringer's Solution 1,000 ml @ 30 mls/hr Q24H IV Last administered on 09/09/16 15:42; Start 09/09/16 at 15:45 Potassium Chloride 50 ml @ 50 mls/hr Q1H IV ; Start 09/09/16 at 17:00; Stop at 18:59 Cefazolin Sodium 1 gm/Sodium Chloride 50 ml @ 100 mls/hr Q8H IV ; Start at 22:00; Stop 09/11/16 at 06:01 Active Scripts Active Xanax (Alprazolam) 0.5 Mg Tablet 1 Tab PO BID Novolog Flexpen (Insulin Aspart) 100 Unit/1 Ml Insuln.pen 5 Unit SQ TIDWMEALS 30 Days Levemir (Insulin Detemir) 100 Unit/1 Ml Vial 20 Unit SQ HS 30 Days Pantoprazole Sodium 40 Mg Tablet.dr 40 Mg PO DAILYAC 30 Days Reported Tylenol (Acetaminophen) 325 Mg Tablet 650 Mg PO PRN Q6HRS PRN Oxycodone Hcl 15 Mg Tablet 15 Mg PO PRN Q6HRS PRN Trazodone Hcl 50 Mg Tablet 100 Mg PO HS Chantix (Varenicline Tartrate) 1 Mg Tablet 1 Mg PO BID Cymbalta (Duloxetine Hcl) 60 Mg Capsule.dr 1 Cap PO BID Gabapentin 600 Mg Tablet 600 Mg PO TID Ambien (Zolpidem Tartrate) 10 Mg Tablet 1 Tab PO QHS NICODERM CQ 14mg (Nicotine) 1 Each Patch.td24 1 Patch TP DAILY Pentoxifylline 400 Mg Tablet.er 400 Mg PO BIDWMEALS Aspir-Low (Aspirin) 81 Mg Tablet.dr 1 Tab PO DAILY Voltaren (Diclofenac Sodium) 100 Gm Gel..gram. 1 Gm TP QID Allergies Allergies: Coded Allergies: No Known Medication Allergies (Verified Allergy, Unknown, 09/06/16) hydrocodone (Verified Adverse Reaction, Intermediate, LOOPY, 09/09/16) N/V Physical Exam General: Other (patient sedated) HEENT: PERRLA, Other Lungs: Normal air movement, Other Heart: Regular rate, Normal S1, Normal S2, Rubs Abdomen: Normal bowel sounds, Soft, No tenderness Vitals VITALS Vital Signs Date Time Temp Pulse Resp B/P (MAP) Pulse Ox O2 Delivery O2 Flow Rate FiO2 09/09/16 16:00 Mechanical Ventilator 09/09/16 15:43 14 100 09/09/16 15:31 190/78 09/09/16 14:30 95.3 83 95.3 Labs Labs Laboratory Tests Test 09/09/16 06:14 09/09/16 06:15 09/09/16 08:45 09/09/16 08:52 Glucose (Fingerstick) 152 mg/dL (70-99) Hemoglobin 11.4 g/dL (12.0-15.5) 11.0 g/dL (12.0-15.5) Hematocrit 34.2 % (36.0-47.0) 33.2 % (36.0-47.0) Mean Corpuscular Hemoglobin Concent 34 g/dL (31-37) Bedside Hemoglobin (Calculated) 10.2 g/dL (12-15) Bedside Hematocrit 30 % (36-40) Bedside Arterial pH 7.61 (7.35-7.45) Bedside Arterial pCO2 37 mmHg (35-45) Bedside Arterial pO2 540 mmHg (75-100) Bedside Arterial HCO3 37 mmol/L (21-28) Bedside Arterial Total CO2 38 mmol/L (21-32) Arterial Bld O2 Saturation (Measur) 100 % (95-99) Bedside Arterial Blood Base Excess 15 mmol/L (0-3) Bedside FiO2 100.0 Bedside Sodium 135 mmol/L (135-145) Bedside Potassium 3.6 mmol/L (3.5-5.0) Glucose Level 60 mg/dL (70-99) Bedside Ionized Calcium (Brock) 1.16 mmol/L (1.13-1.32) Test 09/09/16 09:19 09/09/16 10:07 09/09/16 10:25 09/09/16 10:39 Bedside Hematocrit 22 % (36-40) 18 % (36-40) 15 % (36-40) 23 % (36-40) Bedside Venous pH 7.37 (7.32-7.42) Bedside Venous pCO2 46 mmHg (41-51) Bedside Venous pO2 588 mmHg (20-40) Bedside Venous HCO3 27 mmol/L (24-28) Bedside Venous Blood Total CO2 28 mmol/L (21-32) Bedside Venous Blood O2 Saturation 100 % Bedside Venous Blood Base Excess 2 mmol/L (0-3) POC Venous Hemoglobin (Calc) 7.5 g/dL (12-15) Bedside FiO2 100 100.0 100.0 100.0 Bedside Sodium 137 mmol/L (135-145) 132 mmol/L (135-145) 133 mmol/L (135-145) 132 mmol/L (135-145) Bedside Potassium 3.8 mmol/L (3.5-5.0) 4.4 mmol/L (3.5-5.0) 4.4 mmol/L (3.5-5.0) 5.0 mmol/L (3.5-5.0) Glucose Level 157 mg/dL (70-99) 182 mg/dL (70-99) 141 mg/dL (70-99) 175 mg/dL (70-99) Bedside Ionized Calcium (Brock) 1.58 mmol/L (1.13-1.32) 1.04 mmol/L (1.13-1.32) 1.01 mmol/L (1.13-1.32) 0.97 mmol/L (1.13-1.32) Bedside Hemoglobin (Calculated) 6.1 g/dL (12-15) 5.1 g/dL (12-15) 7.8 g/dL (12-15) Bedside Arterial pH 7.50 (7.35-7.45) 7.40 (7.35-7.45) 7.34 (7.35-7.45) Bedside Arterial pCO2 34 mmHg (35-45) 40 mmHg (35-45) 41 mmHg (35-45) Bedside Arterial pO2 649 mmHg (75-100) 572 mmHg (75-100) 598 mmHg (75-100) Bedside Arterial HCO3 26 mmol/L (21-28) 25 mmol/L (21-28) 22 mmol/L (21-28) Bedside Arterial Total CO2 27 mmol/L (21-32) 26 mmol/L (21-32) 23 mmol/L (21-32) Arterial Bld O2 Saturation (Measur) 100 % (95-99) 100 % (95-99) 100 % (95-99) Bedside Arterial Blood Base Excess 3 mmol/L (0-3) 0 mmol/L (0-3) -4 mmol/L (0-3) Test 09/09/16 11:09 09/09/16 11:38 09/09/16 12:14 09/09/16 12:38 Bedside Hematocrit 27 % (36-40) 24 % (36-40) 19 % (36-40) 18 % (36-40) Bedside Venous pH 7.32 (7.32-7.42) Bedside Venous pCO2 44 mmHg (41-51) Bedside Venous pO2 37 mmHg (20-40) Bedside Venous HCO3 23 mmol/L (24-28) Bedside Venous Blood Total CO2 24 mmol/L (21-32) Bedside Venous Blood O2 Saturation 65 % Bedside Venous Blood Base Excess -3 mmol/L (0-3) POC Venous Hemoglobin (Calc) 9.2 g/dL (12-15) Bedside FiO2 100 100.0 100.0 100.0 Bedside Sodium 136 mmol/L (135-145) 137 mmol/L (135-145) 136 mmol/L (135-145) 135 mmol/L (135-145) Bedside Potassium 4.0 mmol/L (3.5-5.0) 4.3 mmol/L (3.5-5.0) 4.9 mmol/L (3.5-5.0) 4.4 mmol/L (3.5-5.0) Glucose Level 109 mg/dL (70-99) 78 mg/dL (70-99) 63 mg/dL (70-99) 109 mg/dL (70-99) Bedside Ionized Calcium (Brock) 1.03 mmol/L (1.13-1.32) 0.92 mmol/L (1.13-1.32) 0.97 mmol/L (1.13-1.32) 1.74 mmol/L (1.13-1.32) Bedside Hemoglobin (Calculated) 8.2 g/dL (12-15) 6.5 g/dL (12-15) 6.1 g/dL (12-15) Bedside Arterial pH 7.42 (7.35-7.45) 7.44 (7.35-7.45) 7.44 (7.35-7.45) Bedside Arterial pCO2 44 mmHg (35-45) 43 mmHg (35-45) 45 mmHg (35-45) Bedside Arterial pO2 583 mmHg (75-100) 540 mmHg (75-100) 559 mmHg (75-100) Bedside Arterial HCO3 28 mmol/L (21-28) 29 mmol/L (21-28) 31 mmol/L (21-28) Bedside Arterial Total CO2 29 mmol/L (21-32) 31 mmol/L (21-32) 32 mmol/L (21-32) Arterial Bld O2 Saturation (Measur) 100 % (95-99) 100 % (95-99) 100 % (95-99) Bedside Arterial Blood Base Excess 4 mmol/L (0-3) 5 mmol/L (0-3) 7 mmol/L (0-3) Test 09/09/16 13:10 09/09/16 13:25 09/09/16 13:29 09/09/16 15:00 Bedside Hemoglobin (Calculated) 5.4 g/dL (12-15) 6.8 g/dL (12-15) Bedside Hematocrit 16 % (36-40) 20 % (36-40) Bedside Arterial pH 7.39 (7.35-7.45) 7.37 (7.35-7.45) Bedside Arterial pCO2 47 mmHg (35-45) 51 mmHg (35-45) Bedside Arterial pO2 400 mmHg (75-100) 449 mmHg (75-100) Bedside Arterial HCO3 29 mmol/L (21-28) 30 mmol/L (21-28) Bedside Arterial Total CO2 30 mmol/L (21-32) 31 mmol/L (21-32) Arterial Bld O2 Saturation (Measur) 100 % (95-99) 100 % (95-99) Bedside Arterial Blood Base Excess 4 mmol/L (0-3) 4 mmol/L (0-3) Bedside FiO2 100.0 100.0 Bedside Sodium 138 mmol/L (135-145) 137 mmol/L (135-145) Bedside Potassium 3.9 mmol/L (3.5-5.0) 4.1 mmol/L (3.5-5.0) Glucose Level 112 mg/dL (70-99) 113 mg/dL (70-99) Bedside Ionized Calcium (Brock) 1.24 mmol/L (1.13-1.32) 1.42 mmol/L (1.13-1.32) White Blood Count 7.1 x10^3/uL (4.0-11.0) Hemoglobin 5.1 g/dL (12.0-15.5) Hematocrit 13.9 % (36.0-47.0) Platelet Count 86 x10^3/uL (140-400) Prothrombin Time 22.7 SEC (11.7-14.0) Prothromb Time International Ratio 2.2 (0.8-1.1) Activated Partial Thromboplast Time 58 SEC (24-38) Fibrinogen 111 mg/dL (200-440) O2 Saturation 99 % (92-99) Arterial Blood pH 7.47 (7.35-7.45) Arterial Blood pCO2 at Patient Temp 34 mmHg (35-46) Arterial Blood pO2 at Patient Temp 374 mmHg (65-108) Arterial Blood HCO3 24 mmol/L (21-28) Arterial Blood Base Excess 1 mmol/L (-3-3) Oxyhemoglobin 97.9 % Methemoglobin 0.4 % (0.0-1.9) Carbon Monoxide, Quantitative 0.3 % (0.0-1.9) FiO2 100 Test 09/09/16 15:15 White Blood Count 9.9 x10^3/uL (4.0-11.0) Red Blood Count 3.09 x10^6/uL (3.50-5.40) Hemoglobin 9.2 g/dL (12.0-15.5) Hematocrit 26.0 % (36.0-47.0) Mean Corpuscular Volume 84 fL (79-100) Mean Corpuscular Hemoglobin 30 pg (25-35) Mean Corpuscular Hemoglobin Concent 36 g/dL (31-37) Red Cell Distribution Width 14.9 % (11.5-14.5) Platelet Count 154 x10^3/uL (140-400) Prothrombin Time 16.3 SEC (11.7-14.0) Prothromb Time International Ratio 1.4 (0.8-1.1) Activated Partial Thromboplast Time 37 SEC (24-38) Sodium Level 142 mmol/L (136-145) Potassium Level 3.9 mmol/L (3.5-5.1) Chloride Level 104 mmol/L (98-107) Carbon Dioxide Level 26 mmol/L (21-32) Anion Gap 12 (6-14) Blood Urea Nitrogen 17 mg/dL (7-20) Creatinine 0.9 mg/dL (0.6-1.0) Estimated GFR (Cockcroft-Gault) 64.1 Glucose Level 103 mg/dL (70-99) Calcium Level 9.6 mg/dL (8.5-10.1) Magnesium Level 2.2 mg/dL (1.8-2.4) Laboratory Tests Test 09/09/16 06:14 09/09/16 06:15 09/09/16 08:45 09/09/16 08:52 Glucose (Fingerstick) 152 mg/dL (70-99) Hemoglobin 11.4 g/dL (12.0-15.5) 11.0 g/dL (12.0-15.5) Hematocrit 34.2 % (36.0-47.0) 33.2 % (36.0-47.0) Mean Corpuscular Hemoglobin Concent 34 g/dL (31-37) Bedside Hemoglobin (Calculated) 10.2 g/dL (12-15) Bedside Hematocrit 30 % (36-40) Bedside Arterial pH 7.61 (7.35-7.45) Bedside Arterial pCO2 37 mmHg (35-45) Bedside Arterial pO2 540 mmHg (75-100) Bedside Arterial HCO3 37 mmol/L (21-28) Bedside Arterial Total CO2 38 mmol/L (21-32) Arterial Bld O2 Saturation (Measur) 100 % (95-99) Bedside Arterial Blood Base Excess 15 mmol/L (0-3) Bedside FiO2 100.0 Bedside Sodium 135 mmol/L (135-145) Bedside Potassium 3.6 mmol/L (3.5-5.0) Glucose Level 60 mg/dL (70-99) Bedside Ionized Calcium (Brock) 1.16 mmol/L (1.13-1.32) Test 09/09/16 09:19 09/09/16 10:07 09/09/16 10:25 09/09/16 10:39 Bedside Hematocrit 22 % (36-40) 18 % (36-40) 15 % (36-40) 23 % (36-40) Bedside Venous pH 7.37 (7.32-7.42) Bedside Venous pCO2 46 mmHg (41-51) Bedside Venous pO2 588 mmHg (20-40) Bedside Venous HCO3 27 mmol/L (24-28) Bedside Venous Blood Total CO2 28 mmol/L (21-32) Bedside Venous Blood O2 Saturation 100 % Bedside Venous Blood Base Excess 2 mmol/L (0-3) POC Venous Hemoglobin (Calc) 7.5 g/dL (12-15) Bedside FiO2 100 100.0 100.0 100.0 Bedside Sodium 137 mmol/L (135-145) 132 mmol/L (135-145) 133 mmol/L (135-145) 132 mmol/L (135-145) Bedside Potassium 3.8 mmol/L (3.5-5.0) 4.4 mmol/L (3.5-5.0) 4.4 mmol/L (3.5-5.0) 5.0 mmol/L (3.5-5.0) Glucose Level 157 mg/dL (70-99) 182 mg/dL (70-99) 141 mg/dL (70-99) 175 mg/dL (70-99) Bedside Ionized Calcium (Brock) 1.58 mmol/L (1.13-1.32) 1.04 mmol/L (1.13-1.32) 1.01 mmol/L (1.13-1.32) 0.97 mmol/L (1.13-1.32) Bedside Hemoglobin (Calculated) 6.1 g/dL (12-15) 5.1 g/dL (12-15) 7.8 g/dL (12-15) Bedside Arterial pH 7.50 (7.35-7.45) 7.40 (7.35-7.45) 7.34 (7.35-7.45) Bedside Arterial pCO2 34 mmHg (35-45) 40 mmHg (35-45) 41 mmHg (35-45) Bedside Arterial pO2 649 mmHg (75-100) 572 mmHg (75-100) 598 mmHg (75-100) Bedside Arterial HCO3 26 mmol/L (21-28) 25 mmol/L (21-28) 22 mmol/L (21-28) Bedside Arterial Total CO2 27 mmol/L (21-32) 26 mmol/L (21-32) 23 mmol/L (21-32) Arterial Bld O2 Saturation (Measur) 100 % (95-99) 100 % (95-99) 100 % (95-99) Bedside Arterial Blood Base Excess 3 mmol/L (0-3) 0 mmol/L (0-3) -4 mmol/L (0-3) Test 09/09/16 11:09 09/09/16 11:38 09/09/16 12:14 09/09/16 12:38 Bedside Hematocrit 27 % (36-40) 24 % (36-40) 19 % (36-40) 18 % (36-40) Bedside Venous pH 7.32 (7.32-7.42) Bedside Venous pCO2 44 mmHg (41-51) Bedside Venous pO2 37 mmHg (20-40) Bedside Venous HCO3 23 mmol/L (24-28) Bedside Venous Blood Total CO2 24 mmol/L (21-32) Bedside Venous Blood O2 Saturation 65 % Bedside Venous Blood Base Excess -3 mmol/L (0-3) POC Venous Hemoglobin (Calc) 9.2 g/dL (12-15) Bedside FiO2 100 100.0 100.0 100.0 Bedside Sodium 136 mmol/L (135-145) 137 mmol/L (135-145) 136 mmol/L (135-145) 135 mmol/L (135-145) Bedside Potassium 4.0 mmol/L (3.5-5.0) 4.3 mmol/L (3.5-5.0) 4.9 mmol/L (3.5-5.0) 4.4 mmol/L (3.5-5.0) Glucose Level 109 mg/dL (70-99) 78 mg/dL (70-99) 63 mg/dL (70-99) 109 mg/dL (70-99) Bedside Ionized Calcium (Brock) 1.03 mmol/L (1.13-1.32) 0.92 mmol/L (1.13-1.32) 0.97 mmol/L (1.13-1.32) 1.74 mmol/L (1.13-1.32) Bedside Hemoglobin (Calculated) 8.2 g/dL (12-15) 6.5 g/dL (12-15) 6.1 g/dL (12-15) Bedside Arterial pH 7.42 (7.35-7.45) 7.44 (7.35-7.45) 7.44 (7.35-7.45) Bedside Arterial pCO2 44 mmHg (35-45) 43 mmHg (35-45) 45 mmHg (35-45) Bedside Arterial pO2 583 mmHg (75-100) 540 mmHg (75-100) 559 mmHg (75-100) Bedside Arterial HCO3 28 mmol/L (21-28) 29 mmol/L (21-28) 31 mmol/L (21-28) Bedside Arterial Total CO2 29 mmol/L (21-32) 31 mmol/L (21-32) 32 mmol/L (21-32) Arterial Bld O2 Saturation (Measur) 100 % (95-99) 100 % (95-99) 100 % (95-99) Bedside Arterial Blood Base Excess 4 mmol/L (0-3) 5 mmol/L (0-3) 7 mmol/L (0-3) Test 09/09/16 13:10 09/09/16 13:25 09/09/16 13:29 09/09/16 15:00 Bedside Hemoglobin (Calculated) 5.4 g/dL (12-15) 6.8 g/dL (12-15) Bedside Hematocrit 16 % (36-40) 20 % (36-40) Bedside Arterial pH 7.39 (7.35-7.45) 7.37 (7.35-7.45) Bedside Arterial pCO2 47 mmHg (35-45) 51 mmHg (35-45) Bedside Arterial pO2 400 mmHg (75-100) 449 mmHg (75-100) Bedside Arterial HCO3 29 mmol/L (21-28) 30 mmol/L (21-28) Bedside Arterial Total CO2 30 mmol/L (21-32) 31 mmol/L (21-32) Arterial Bld O2 Saturation (Measur) 100 % (95-99) 100 % (95-99) Bedside Arterial Blood Base Excess 4 mmol/L (0-3) 4 mmol/L (0-3) Bedside FiO2 100.0 100.0 Bedside Sodium 138 mmol/L (135-145) 137 mmol/L (135-145) Bedside Potassium 3.9 mmol/L (3.5-5.0) 4.1 mmol/L (3.5-5.0) Glucose Level 112 mg/dL (70-99) 113 mg/dL (70-99) Bedside Ionized Calcium (Brock) 1.24 mmol/L (1.13-1.32) 1.42 mmol/L (1.13-1.32) White Blood Count 7.1 x10^3/uL (4.0-11.0) Hemoglobin 5.1 g/dL (12.0-15.5) Hematocrit 13.9 % (36.0-47.0) Platelet Count 86 x10^3/uL (140-400) Prothrombin Time 22.7 SEC (11.7-14.0) Prothromb Time International Ratio 2.2 (0.8-1.1) Activated Partial Thromboplast Time 58 SEC (24-38) Fibrinogen 111 mg/dL (200-440) O2 Saturation 99 % (92-99) Arterial Blood pH 7.47 (7.35-7.45) Arterial Blood pCO2 at Patient Temp 34 mmHg (35-46) Arterial Blood pO2 at Patient Temp 374 mmHg (65-108) Arterial Blood HCO3 24 mmol/L (21-28) Arterial Blood Base Excess 1 mmol/L (-3-3) Oxyhemoglobin 97.9 % Methemoglobin 0.4 % (0.0-1.9) Carbon Monoxide, Quantitative 0.3 % (0.0-1.9) FiO2 100 Test 09/09/16 15:15 White Blood Count 9.9 x10^3/uL (4.0-11.0) Red Blood Count 3.09 x10^6/uL (3.50-5.40) Hemoglobin 9.2 g/dL (12.0-15.5) Hematocrit 26.0 % (36.0-47.0) Mean Corpuscular Volume 84 fL (79-100) Mean Corpuscular Hemoglobin 30 pg (25-35) Mean Corpuscular Hemoglobin Concent 36 g/dL (31-37) Red Cell Distribution Width 14.9 % (11.5-14.5) Platelet Count 154 x10^3/uL (140-400) Prothrombin Time 16.3 SEC (11.7-14.0) Prothromb Time International Ratio 1.4 (0.8-1.1) Activated Partial Thromboplast Time 37 SEC (24-38) Sodium Level 142 mmol/L (136-145) Potassium Level 3.9 mmol/L (3.5-5.1) Chloride Level 104 mmol/L (98-107) Carbon Dioxide Level 26 mmol/L (21-32) Anion Gap 12 (6-14) Blood Urea Nitrogen 17 mg/dL (7-20) Creatinine 0.9 mg/dL (0.6-1.0) Estimated GFR (Cockcroft-Gault) 64.1 Glucose Level 103 mg/dL (70-99) Calcium Level 9.6 mg/dL (8.5-10.1) Magnesium Level 2.2 mg/dL (1.8-2.4) Assessment/Plan Assessment/Plan Patient with CAD that came in for CABG, she tolerated the procedure well. I agree with the present plan. Thank you very much for allowing me to participate in the care of this patient SAUNDRA FORTUNE MD Sep 09, 2016 16:39
[2016-09-09] MEDS: POTASSIUM CHLORIDE 20MEQ 50 ML IV SCH ×2 (16:42→17:32)
[2016-09-09 19:00] VITALS: BP 101/38
[2016-09-09 19:39] LABS: HEMATOCRIT 22.5 % (36.0-47.0); HEMOGLOBIN 7.8 g/dL (12.0-15.5); RED BLOOD COUNT 2.62 x10^6/uL (3.50-5.40); RED CELL DISTRIBUTION WIDTH 15.1 % (11.5-14.5); WHITE BLOOD COUNT 13.8 x10^3/uL (4.0-11.0)
[2016-09-09 20:00] VITALS: BP 106/36
[2016-09-09 21:00] VITALS: BP 119/38
[2016-09-09] MEDS: SENNOSIDES/DOCUSATE 8.6/50MG TABLET. PO SCH (21:00)
[2016-09-09 21:17] LABS: BODY TEMP ABG 100.8 DEG; CORRECTED PCO2 ABG 47 mmHg; CORRECTED PH ABG 7.35; CORRECTED PO2 ABG 114 mmHg; HCO3 ABG 25 mmol/L (21-28); PCO2 ABG 45 mmHg (35-46); PH ABG 7.36 (7.35-7.45); PO2 ABG 106 mmHg (65-108); SAT O2 ABG 97 % (92-99)
[2016-09-09] MEDS: FAMOTIDINE 20 MG/2 ML VIAL IVP SCH (21:29)
[2016-09-09 21:50] LABS: FIO2 ABG 40
[2016-09-09 22:00] VITALS: BP 114/35
[2016-09-09 23:00] VITALS: BP 140/36
[2016-09-10] VITALS (26 sets, daily range): BP systolic 98–159; BP diastolic 37–73
--- NOTE | 2016-09-10 01:23 | ACF ---
Admission Forms Criteria INTENSIVE CARE UNIT ADMISSION Intensive Care Admission Guidelines ( Place 'X' for any and all applicable criteria): Admission to ICU may be indicated when need is demonstrated by ANY ONE of the following (1)(2)(3)(4)(5)(6)(7)(8)(9) : [ ]I. Vital sign abnormalities, including ANY ONE of the following: [ ]a) Systolic arterial pressure less than 90 mm Hg, or 20 mm Hg below the patient's usual pressure [ ]b) Diastolic arterial pressure greater than 120 mm Hg [ ]c) Mean arterial pressure less than 70 mm Hg [A] [ ]d) Pulse less than 40 or greater than 140 beats per minute (in adult) [ ]e) Respiratory rate greater than 35 or less than 8 breaths per minute [ ]II. Laboratory findings (new), including ANY ONE of the following (10): [ ]a) Saturation of arterial oxygen less than 88% or partial pressure of oxygen less than 60 mm Hg (8.0 kPa) despite oxygen supplementation [ ]b) Rising partial pressure of carbon dioxide with respiratory acidosis [ ]c) pH less than 7.2 or greater than 7.65 [ ]d) Serum glucose greater than 800 mg/dL (44.4 mmol/L) [ ]e) Serum sodium less than 110 mEq/L (mmol/L) or greater than 160 mEq/L (mmol/L) [ ]f) Serum potassium less than 2 mEq/L (mmol/L) or greater than 7 mEq /L (mmol/L) [ ]g) Serum calcium greater than 15 mg/dL (3.75 mmol/L) [ ]h) Serum phosphorus less than 1 mg/dL (0.32 mmol/L) [ ]i) Toxic drug level or poisoning causing or likely to cause neurologic or Hemodynamic instability [ ]j) Less severe laboratory abnormalities contributing to ANY ONE of the following: [ ]i) Seizure [ ]ii) Altered mental status [ ]iii) Muscle weakness [ ]iv) Arrhythmias [ ]v) Hemodynamic instability [ ]vi) Other significant clinical manifestations [ ]III. Electrocardiogram (or cardiac monitoring) findings, including ANY ONE of the following: [ ]a) Inherently unstable or life-threatening arrhythmia (eg, sustained ventricular tachycardia, ventricular fibrillation, asystole) [ ]b) Arrhythmia causing severe hypotension (eg, bradycardia, tachycardia) [ ]c) Complete heart block causing severe hypotension [ ]d) Other findings indicative of a need for intensive care (eg , PA) [ ]IV.Physical findings, including ANY ONE of the following: [ ]a) Threatened airway [ ]b) Sudden altered mental status [ ]c) Repeated or prolonged seizures [ ]d) Coma [ ]e) New-onset anuria (urine output <0.1 mL/kg/hr over 4 h) [ ]f) Cyanosis (new) [ ]g) Cardiac tamponade [ ]h) Status post respiratory or cardiac arrest [ ]i) Severe sy (eg, partial thickness sy over more than 10% of body surface, third-degree sy) [ ]j) Findings consistent with abdominal emergency (eg, peritoneal signs) [ ]V.Imaging findings, such as dissecting aneurysm or ruptured viscus [ ].Specific intervention or monitoring needed, as indicated by ANY ONE of the following: [ ]a) New need for assisted ventilation, invasive or noninvasive(11) [ ]b) New need for intubation (eg, to protect airway) [ ]c) New tracheostomy (less than 48 hours old) [ ]d) Hourly vital signs or neurologic checks [ ]e) Pulmonary artery line monitoring needed [ ]f) Continuous arterial line monitoring needed [ ]g) Continuous IV vasoactive drugs [ ]h) Continuous IV antiarrhythmics [ ]i) Large volume IV fluid resuscitation (eg, greater than 6 L per day ) [ ]j) Large or rapid transfusion needs (eg, more than 6 units within 24 hours) [ ]k) High-risk IV treatment, such as bolus IV medicatns or mannitol infusion [ ]l) Acute cardiac pacing [ ]m) Intra-aortic balloon pump [ ]n) Ventricular assist device [ ]o) Cardioversion [ ]p) Pericardiocentesis [ ]q) Hemodialysis in unstable patient [ ]r) Continuous renal replacement therapy (eg, continuous veno-venous hemofiltration) [ ]s) Peritoneal dialysis initiation [ ]t) Emergency bronchoscopic therapy (eg, for hemoptysis) [ ]u) Emergency endoscopic therapy for bleeding [ ]v) Balloon tamponade for variceal bleeding [ ]w) Intracranial pressure monitoring or tissue oxygen monitoring [ ]x) Ventriculostomy monitoring [ ]y) Treatment of ongoing seizures [ ]z) Induced hypothermia or coma [ ]aa) Ongoing frequent testing and treatment for acute conditions, including ANY ONE of the following: [ ]i) Correction of severe metabolic acidosis/ alkalosis [ ]ii). Severe fluid overload [ ]iii) Cerebral edema [ ]iv) Monitoring or suctioning for respiratory insufficiency or acidosis [ ]v) Monitoring for active bleeding [ ]bb) Rapid desensitization for high-risk hypersensitivity reaction to required medication (eg, penicillin)(12) [ ]cc) Other need for treatment or monitoring not available outside the ICU [ ]VII.Cardiology diagnoses or procedures, including ANY ONE of the following (13)(14)(15)(16)(17): [ ]a) Chest pain with ANY ONE of the following: [ ]i) Hemodynamic instability [ ]ii) Suspicion of diagnoses needing ICU care (eg, aortic dissection) [ ]iii) New unstable or symptomatic arrhythmia or ECG finding (eg, ventricular tachycardia, ventricular fibrillation, advanced heart block) [ ]iv) Syncope or near-syncope [ ]v) SBP less than 100 mm Hg [ ]vi) Pulmonary edema thought to be due to ischemia [ ]vii) New or worsening mitral regurgitation murmur, S3 , or rales [ ]b) Acute PA with complications as indicated by ANY ONE of the following: [ ]i) Persistent chest pain [ ]ii) Hemodynamic instability [ ]iii) New unstable or symptomatic arrhythmia or ECG finding (eg, ventricular tachycardia, ventricular fibrillation, advanced heart block) [ ]iv) Syncope or near-syncope [ ]v) Pulmonary edema thought to be due to ischemia [ ]vi) New or worsening mitral regurgitation murmur, S3 , or rales [ ]vii) New-onset bundle branch block [ ]viii) Hemorrhagic complication (eg, intracranial or access site bleed following thrombolysis) [ ]c) Cardiac arrhythmia or conduction defect with Hemodynamic instability [ ]d) Complication of cardiac ablation, including ANY ONE of the following(18): [ ]i) Pericardial tamponade [ ]ii) Hemodynamic instability [ ]iii) Thromboembolic stroke [ ]iv) Aortic valve injury [ ]v) Vascular injuries [ ]vi) Esophageal perforation [ ]vii) Severe arrhythmia [ ]viii) Air embolism [ ]ix) Other severe complication [ ]e) Cardiogenic shock [ ]f) Hypertensive emergency, with need for ANY ONE of the following(19): [ ]i) IV antihypertensive therapy [ ]ii) Invasive hemodynamic monitoring (eg, arterial line) [ ]g) Pericardial tamponade [ ]h) Severe heart failure, with ANY ONE of the following(15): [ ]i) Respiratory failure [ ]ii) Cardiogenic shock [ ]iii) Severe arrhythmias [ ]iv) Evidence of cardiac ischemia [ ]i Myocarditis, with ANY ONE of the following [ ]i) Hemodynamic instability [ ]ii) Respiratory failure [ ]iii) Severe arrhythmias [ ]iv) Need for cardiac assist device (eg, left ventricular assist device or extracorporeal membrane oxygenator) [ ]j) Status post cardiac arrest(20) [ ]VIII. Cardiovascular Surgery diagnoses or procedures, including ANY ONE of the following.(21)(22): [ ]a) Acute aortic dissection [ ]b) Aortic surgery for ANY ONE of the following: [ ]i) Thoracic aneurysm [ ]ii) Abdominal aneurysm with ANY ONE of the following(23): [ ]1) Emergency repair [ ]2) Severe cardiopulmonary disease [ ]3) Dialysis-dependent renal failure [ ]4) Need for IV blood pressure control [ ]5) Need for ongoing ventilatory support [ ]6) Perioperative complications, including ANY ONE of the following: [ ]A. Sustained Hemodynamic instability [ ]B. Cardiac ischemia or arrhythmia [ ]C. Hypothermia (less than 35 degrees C (95 degrees F)) [ ]D. Blood transfusion greater than 3 L [ ]iii) Aortic coarctation operative excision or repair [ ]iv) Aortofemoral or aortoiliac bypass with ANY ONE of the following: [ ]1) Continued intubation [ ]2) Hemodynamic instability [ ]3) Need for IV blood pressure control [ ]4) Severe cardiopulmonary disease [X]c) Cardiac surgery [ ]d) Carotid endarterectomy or stent placement with ANY ONE of the following: [ ]i) Blood pressure <100/60 mm Hg or >160/90 mm Hg despite 4 h of postanesthetic management [ ]ii) New or progressive neurologic defect [ ]iii) Chest pain [ ]iv) Continued intubation [ ]v) Heart failure [ ]vi) Airway compromise by hematoma or vocal cord paralysis [ ]vi) Need for IV blood pressure control [ ]e) Heart transplant [ ]f) Infrainguinal peripheral vascular surgery with ANY ONE of the following: [ ]i) Hemodynamic instability [ ]ii) Acute complications such as persistent chest pain or respiratory distress [ ]iii) Requirement for IV antiarrhythmic or vasoactive agent [ ]iv) Requirement for pulmonary artery catheter [ ]v) Severe hypertension despite 6 hours of recovery room management [ ]g) Complications of any surgery requiring ICU intervention as indicated by ANY ONE of the following(24): [ ]i) Hemodynamic instability [ ]ii) Myocardial infarction with complications (eg, severe arrhythmia, hypotension) [ ]iii) Excessive bleeding or severe coagulopathy [ ]iv) Respiratory failure [ ]v) Renal failure [ ]vi) Airway instability or obstruction [ ]vii) Neurologic deterioration [ ]viii) Infection with likelihood of sepsis syndrome or significant fluid shifts [ ]IX.Endocrinology diagnoses or procedures, including ANY ONE of the following(25)(26): [ ]a) Adrenal crisis with Hemodynamic instability(27) [ ]b) Pheochromocytoma with ANY ONE of the following(28): [ ]i) Hypertensive crisis [ ]ii) Postoperative Hemodynamic instability [ ]iii) Need for IV vasoactive therapy [ ]iv) Need for invasive arterial or central venous pressure monitoring [ ]v) Organ ischemia [ ]c) Diabetic hyperosmolar state with obtundation or coma [ ]d) Diabetic ketoacidosis with ANY ONE of the following: [ ]i) Serum pH less than 7.10 or bicarbonate level less than 10 mEq/L (mmol/L) [ ]ii) Rapidly changing electrolytes [ ]iii) Hypotension [ ]iv) Requirement for large-volume fluid resuscitation [ ]v) Respiratory insufficiency [ ]vi) Life-threatening cardiac dysrhythmias [ ]vii) Obtundation [ ]viii) Severe precipitating condition such as sepsis, stroke, or acute PA [ ]e) Severe hypoglycemia requiring continuous glucose infusion with frequent adjustment or glucagon infusion [ ]f) Hyperthyroidism associated with thyroid storm (also known as thyrotoxic crisis)(29) [ ]g) Myxedema with life-threatening neurologic, cardiovascular, electrolyte, or renal dysfunction(29) [ ]h) Diabetes insipidus that cannot be controlled with routine medication (30) [ ]X. Gastroenterology diagnoses or procedures, including ANY ONE of the following: [ ]a) Esophageal perforation(31) [ ]b) Severe caustic esophageal injury(31) [ ]c) Liver disease complications with ANY ONE of the following(32): [ ]i) Severe hepatic encephalopathy (eg, stage 3 (somnolent) or higher) [ ]ii) Type 1 hepatorenal syndrome [ ]iii) Other cirrhosis-associated causes of acute renal failure ( eg, severe hypovolemia, acute tubular necrosis, abdominal compartment syndrome) [ ]iv) Hemodynamic instability [ ]v) Respiratory insufficiency due to severe ascites [ ]vi) Sepsis due to spontaneous bacterial peritonitis [ ]d) Fulminant hepatic failure when aggressive intervention or transplant is anticipated (32) [ ]e) Gastrointestinal hemorrhage (upper or lower) with ANY ONE of the following(33)(34): [ ]i) Active ongoing bleeding [ ]ii) Transfusion requirement greater than 2 units of packed red cells [ ]iii) Bleeding ulcer or nonbleeding visible vessel seen on endoscopy [ ]iv) Bleeding ulcer, visible blood vessel, bleeding (or recently bleeding) esophageal varices seen on endoscopy [ ]v) Hypotension [ ]vi) Syncope [ ]vii) Coagulopathy [ ]viii) Hepatic cirrhosis [ ]ix) Abnormal mental status [ ]x) Unstable comorbid condition or end organ dysfunction [ ]xi) Ischemia due to poor perfusion [ ]xii) Need for hemodynamic monitoring (eg, for patients with heart failure or valvular disease) [ ]f) Severe pancreatitis indicated by ANY ONE of the following (35)(36): [ ]i) Requirement for aggressive fluid resuscitation [ ]ii) Life-threatening electrolyte abnormality [ ]iii) SBP less than 90 mm Hg [ ]iv) Persistent tachycardia greater than 120 beats per minute [ ]v) Patients at high risk of rapid deterioration, including ANY ONE of the following: [ ]1) Calculated Elim Ira II score greater than 8 [ ]2) Age older than 55 years [ ]3) BMI greater than 30 [ ]4) Greater than 30% pancreatic necrosis on CT scan [ ]5) Admission hematocrit greater than 47% (0.47) [ ]vi) Organ failure as indicated by ANY ONE of the following: [ ]1) Serum creatinine greater than 1.9 mg/dL (168 micromoles/L) [ ]2) Requirement for mechanical ventilation [ ]3) Urine output less than 50 mL/hour [ ]4) Arterial partial pressure of oxygen less than 60 mm Hg (8.0 kPa) despite supplemental oxygen [ ]5) PiO2/FiO2 ratio less than 300 [ ]vii) Expanding pseudocyst [ ]viii) Infected pancreas [ ]ix) Pleural effusion [ ]x) Encephalopathy [ ]xi) Severe comorbidities [ ]XI. General Surgery diagnoses or procedures, including ANY ONE of the following (9)(24)(37): [ ]a) Acute abdominal catastrophe (eg, ischemic bowel, perforated viscus, abdominal compartment syndrome) [ ]b) Complications of any surgery requiring ICU intervention as indicated by ANY ONE of the following: [ ]i) Hemodynamic instability [ ]ii) PA with complications (eg, severe arrhythmia, hypotension) [ ]iii) Excessive bleeding or severe coagulopathy [ ]iv) Respiratory failure [ ]v) Renal failure [ ]vi) Airway instability or obstruction [ ]vii) Neurologic deterioration [ ]viii) Infection with likelihood of sepsis syndrome or significant fluid shifts [ ]c) Multiple trauma with complicating features as indicated by ANY ONE of the following(38): [ ]i) Impending acute respiratory failure due to lung contusion, unstable chest wall, aspiration, or hemorrhage [ ]ii) Facial or neck injury threatening airway patency [ ]iii) Cardiac contusion [ ]iv) Pericardial effusion [ ]v) Bronchial tear [ ]vi) Hemodynamic instability [ ]vii) Rhabdomyolisis requiring large volume IV fluid resuscitation [ ]viii)Other significant complicating feature [ ]d) Organ transplant(39)(40) [ ]e) Esophagectomy(31) [ ]f) Whipple procedure [ ]g) Preoperative or postoperative patients requiring ICU intervention, such as hemodynamic optimization, pulmonary artery monitoring, mechanical ventilation, or extensive nursing care [ ]h) Obesity surgery patients with ANY ONE of the following(41): [ ]i) ICU management needs for comorbid conditions, such as sleep apnea or airway management needs [ ]ii) Failed postoperative extubation [ ]iii) Intraoperative complications [ ]XII. Nephrology diagnoses or procedures, including acute, or acute on chronic renal insufficiency with ANY ONE of the following(44)(45): [ ]a) Life-threatening electrolyte or acid-base disorder [ ]b) Acute pulmonary edema [ ]c) Hypotension or significant volume depletion [ ]d) Hypertensive emergency [ ]e) Underlying critical illness contributing to renal failure (eg, septic shock, hepatorenal syndrome) [ ]f) Need for continuous renal replacement therapy [ ]XIII. Neurology diagnoses or procedures, including ANY ONE of the following (46)(47) [B] : [ ]a) Intracranial hypertension requiring ANY ONE of the following(49 ): [ ]i) Induced barbiturate coma [ ]ii) Pharmacologic paralysis or deep sedation and mechanical ventilation [ ]iii) Intracranial pressure or cerebral perfusion pressure monitoring [ ]iv) IV mannitol or hypertonic saline [ ]v) Frequent serum osmolality measurements [ ]b) Seizures with ANY ONE of the following(50): [ ]i) Status epilepticus [ ]ii) Airway compromise requiring or likely to require mechanical ventilation [ ]iii) Severe electrolyte abnormalities causing seizures [ ]c) Progressive acute neurologic dysfunction requiring or likely to require ANY ONE of the following: [ ]i) Mechanical ventilation [ ]ii) Intracranial pressure or cerebral perfusion pressure monitoring [ ]d) Meningitis with obtundation or respiratory insufficiency [C])(51 ) [ ]e) Stroke with ANY ONE of the following(52)(53): [ ]i) Need for observation after thrombolysis [ ]ii) Altered mental status [ ]iii) Need for mechanical ventilation [ ]iv) Elevated intracranial pressure [ ]v) Hypertensive emergency [ ]vi) High risk of progressive infarction or deterioration based on CT scan or MRI [ ]vii) Hemorrhage [ ]f) Acute coma [ ]g) Acute spontaneous intracranial hemorrhage(53)(54) [ ]h) Drug ingestion with ANY ONE of the following(56)(57): [ ]i) Hemodynamic instability [ ]ii) Respiratory depression (partial pressure of carbon dioxide >45 mm Hg (6.0 kPa), new) [ ]iii) Patient requires or is likely to require mechanical ventilation. [ ]iv) Arrhythmias [ ]v) Seizures [ ]vi) Altered mental status ([employer] coma scale score less than 12, new) [ ]vii) Significant risk for acute deterioration (eg, toxic level of hypotension or arrhythmia-producing drug) [ ]viii) Drug-induced hypothermia or hyperthermia [ ]ix) Increasing metabolic acidosis [ ]x) Severe hypoglycemia requiring glucose infusion with frequent adjustment or glucagon administration [ ]xi) Ongoing antidote administration (eg, continuous naloxone infusion, organophosphate toxicity treatment) [ ]xii) Emergency intervention need (eg, dialysis, hemoperfusion, restraints) [ ]i) Brain with preparation for organ donation [ ]j) Traumatic brain injury with ANY ONE of the following(55): [ ]i) Altered mental status (eg, new onset Doe coma scale score less than 10) [ ]ii) Cerebral edema [ ]iii) Cerebral hemorrhage [ ]iv) Increased intracranial pressure [ ]XIV. Neurosurgery diagnoses or procedures, including ANY ONE of the following(49)(58)(59): [ ]a) Emergency craniotomy for tumor, hematoma, or trauma [ ]b) Elective craniotomy for posterior fossa tumor [ ]c) Elective craniotomy (supratentorial) for tumor with ANY ONE of the following: [ ]i) Postoperative neurologic deficit or impaired consciousness 6 hours after completion of procedure [ ]ii) SBP less than 110 mm Hg or greater than 180 mm Hg despite therapy [ ]iii) Extensive operative blood loss [ ]iv) High anesthesia risk (eg, [place] [employer] score greater than 3 [ ]d) Craniotomy for aneurysm with ANY ONE of the following: [ ]i) Postoperative neurologic deficit or impaired consciousness 6 hours after completion of procedure [ ]ii) Preoperative Lewis-Dickinson grade 3 or higher [ ]iii) SBP less than 110 mm Hg or greater than 180 mm Hg despite therapy [ ]iv) Intracranial pressure monitoring [ ]e) Acute spinal cord injury [ ]f) Subarachnoid hemorrhage [ ]g) Traumatic brain injury with ANY ONE of the following: [ ]i) Acute mental status change (Doe coma scale score less than 10) [ ]ii) CT scan showing cerebral edema or hemorrhage [ ]iii) Intracranial pressure monitoring [ ]h) Complications of any surgery requiring ICU intervention as indicated by ANY ONE of the following(60): [ ]i) Hemodynamic instability [ ]ii) PA with complications (eg, severe arrhythmia, hypotension) [ ]iii) Excessive bleeding or severe coagulopathy [ ]iv) Respiratory failure [ ] v) Renal failure [ ]vi) Airway instability or obstruction [ ]vii) Neurologic deterioration [ ]viii) Infection with likelihood of sepsis syndrome or significant fluid shifts [ ]i) Preoperative or postoperative patients requiring ICU intervention, such as hemodynamic optimization, pulmonary artery monitoring, mechanical ventilation, or extensive nursing care [ ]XV.Obstetrics and Gynecology diagnoses or procedures, including ANY ONE of the ffg. (61)(62)(63): [ ]a) Severe peripartum condition as indicated by ANY ONE of the following: [ ]i) Eclampsia [ ]ii) Hypertensive emergency [ ]iii) HELLP syndrome (hemolysis, elevated liver enzymes, and low platelet count) [ ]iv) Pulmonary edema [ ]v) Respiratory failure [ ]vi) Pulmonary embolism [ ]vii) Anaphylactoid syndrome of (amniotic fluid embolus) [ ]viii) Ovarian hyperstimulation syndrome [D] [ ]ix) Acute fatty liver of (hepatic failure) [ ]x) Complications such as placental abruption or severe hemorrhage [ ]xi) Sepsis (eg, puerperal sepsis, chorioamnionitis, septic ) [ ]xii) cardiomyopathy with severe congestive heart failure (eg, respiratory failure, cardiogenic shock) [ ]b) Ruptured ectopic [ ]c) Complications of any surgery requiring ICU intervention as indicated by ANY ONE of the following: [ ]i) Hemodynamic instability [ ]ii) PA with complications (eg, severe arrhythmia, hypotension) [ ]iii) Excessive bleeding or severe coagulopathy [ ]iv) Respiratory failure [ ]v) Renal failure [ ]vi) Airway instability or obstruction [ ]vii) Neurologic deterioration [ ]viii) Infection with likelihood of sepsis syndrome or significant fluid shifts [ ]d) Preoperative or postoperative patients requiring ICU intervention , such as hemodynamic optimization, pulmonary artery monitoring, mechanical ventilation, or extensive nursing care [ ]XVI.Ophthalmology diagnoses or procedures, including ANY ONE of the following (64): [ ]a) Complications of any surgery requiring ICU intervention, such as ANY ONE of the following: [ ]i) Hemodynamic instability [ ]ii) PA with complications (eg, severe arrhythmia, hypotension) [ ]iii) Excessive bleeding or severe coagulopathy [ ]iv) Respiratory failure [ ]v) Renal failure [ ]vi) Airway instability or obstruction [ ]vii) Neurologic deterioration [ ]viii) Infection with likelihood of sepsis syndrome or significant fluid shifts [ ]b) Preoperative or postoperative patients requiring ICU intervention , such as hemodynamic optimization, pulmonary artery monitoring, mechanical ventilation, or extensive nursing care [ ]XVII.Orthopedics diagnoses or procedures, including ANY ONE of the following [phone]): [ ]a) Complications of any surgery requiring ICU intervention as indicated by ANY ONE of the following: [ ]i) Hemodynamic instability [ ]ii) PA with complications (eg, severe arrhythmia, hypotension) [ ]iii) Excessive bleeding or severe coagulopathy [ ]iv) Respiratory failure [ ]v) Renal failure [ ]vi) Airway instability or obstruction [ ] vii) Neurologic deterioration [ ]viii) Infection with likelihood of sepsis syndrome or significant fluid shifts [ ]b) Multiple trauma with complicating features as indicated by ANY ONE of the following(38): [ ]i) Impending acute respiratory failure due to lung contusion, unstable chest wall, pneumothorax, aspiration, or hemorrhage [ ]ii) Facial or neck injury threatening airway patency [ ]iii) Cardiac contusion [ ]iv) Rhabdomyolysis requiring large volume IV fluid resuscitation [ ]v) Pericardial effusion [ ]vi) Bronchial tear [ ]vii) Hemodynamic instability [ ]viii) Other significant complicating feature [ ]c) Threatened compartment syndrome [ ]d) Severe sy with ANY ONE of the following(68)(69)(70): [ ]i) Hypotension or requirement for aggressive fluid resuscitation [ ]ii) Respiratory insufficiency with requirement for high- flow oxygen or mechanical ventilation [ ]iii) Carbon monoxide poisoning [ ]iv) Life-threatening cardiac, renal, pulmonary, or neurologic dysfunction [ ]v) High-voltage (eg, 1000 volts or more) electrical burn [ ]vi) Requirement for frequent or intensive debridement and dressing changes; examples include: [ ]1) Partial thickness sy greater than 10% of body surface [ ]2) Sy on face, hands, feet, genitalia, perineum , or major joints [ ]3) Third-degree sy [ ]4) Any burn greater than 15% of body surface area [ ]vii) Inhalation lung injury [ ]viii) Concomitant trauma or other medical condition requiring ICU care [ ]e) Preoperative or postoperative patients requiring ICU intervention , such as hemodynamic optimization, pulmonary artery monitoring, mechanical ventilation, or extensive nursing care [ ]XVIII.Otolaryngology diagnoses or procedures, including ANY ONE of the following (71)(72): [ ]a) Complications of any surgery requiring ICU intervention as indicated by ANY ONE of the following: [ ]i) Hemodynamic instability [ ]ii) PA with complications (eg, severe arrhythmia, hypotension) [ ]iii) Excessive bleeding or severe coagulopathy [ ]iv) Respiratory failure [ ]v) Renal failure [ ]vi) Airway instability or obstruction [ ]vii) Neurologic deterioration [ ]viii) Infection with likelihood of sepsis syndrome or significant fluid shifts [ ]b) Airway or hemodynamic compromise that persists after 3 hours of observation in postanesthesia care unit following nasal, palate (eg, uvulopalatopharyngoplasty or palatoplasty), or tongue surgery for sleep apnea [ ]c) Preoperative or postoperative patient requiring ICU intervention, such as hemodynamic optimization, pulmonary artery monitoring, mechanical ventilation, or extensive nursing care [ ]d) Symptomatic upper airway compromise (eg, laryngeal edema, mass) [ ]e) Other airway-compromising procedure (eg, posterior nasal packing) [ ]XIX.Thoracic Surgery and Pulmonary Disease Diagnosis or procedures, including ANY ONE of the following(6): [ ]a) Asthma with ANY ONE of the following(73)(74): [ ]i) Impending or actual respiratory arrest [ ]ii) Need for mechanical ventilation [ ]iii) Peak expiratory flow rate less than 30% of predicted or personal best [ ]iv) Peak expiratory flow rate or FEV1 less than 40% predicted after 1 hour of initial treatment [ ]v) Acidosis [ ]vi) Persistent or worsening hypoxia after initial treatment [ ]vii) Hypercapnia (eg, partial pressure of carbon dioxide greater than 43 mm Hg (5.7 kPa)) [ ]viii) Severe drowsiness, confusion, or coma [ ]ix) Requiring continuous inhaled bronchodilator [ ]b) COPD with ANY ONE of the following(75): [ ]i) Need for assisted ventilation [ ]ii) Hemodynamic instability [ ]iii) Severe dyspnea unresponsive to initial treatment [ ]iv) Change in level of consciousness [ ]v) Persistent findings despite oxygen and outpatient management, including ANY ONE of the following: [ ]1) Partial pressure of oxygen less than 40 mm Hg ( 5.3 kPa) [ ]2) Partial pressure of carbon dioxide greater than 60 mm Hg (8.0 kPa) [ ]3) pH less than 7.25 [ ]4) Worsening hypoxemia or acidosis [ ]c) Cor pulmonale with ANY ONE of the following(75)(76)(77): [ ]i) Hemodynamic instability [ ]ii) Need for IV inotropic or vasoactive agent [ ]iii) Need for invasive hemodynamic monitoring (eg, central venous, pulmonary artery, or arterial catheter) [ ]iv) Hypoxemia with partial pressure of oxygen less than 40 mm Hg (5.3 kPa) [ ]v) Worsening hypoxemia or acidosis despite oxygen therapy [ ]vi) Need for assisted ventilation [ ]vii) Need for right ventricular assist device [ ]viii) Unstable atrial tachyarrhythmia [ ]ix) Need for inhaled nitric oxide [ ]d) Aspiration pneumonia with ANY ONE of the following(78): [ ]i) Acute respiratory distress syndrome (PaO2/FiO2 ratio of 300 or less) [ ]ii) Impending or actual respiratory arrest [ ]iii) Need for invasive or noninvasive mechanical ventilation [ ]e) Pneumocystis jiroveci pneumonia with ANY ONE of the following(79): [ ]i) Impending or actual respiratory arrest [ ]ii) Hypoxia (eg, PO260 mmGh (8.0 kPa) or less despite oxygen therapy) [ ]iii) Need for invasive or noninvasive mechanical ventilation [ ]f) Pneumonia with ANY ONE of the following(80)(81)(82): [ ]i) Need for invasive or noninvasive assisted ventilation [ ]ii) Hemodynamic instability [ ]iii) Severity factors as indicated by 3 or MORE of the following: [ ]1) Respiratory rate 30 breaths per minute or greater [ ]2) PaO2/FiO2 ratio of 250 or less [ ]3) Multilobed infiltrates [ ]4) Altered mental status [ ]5) BUN 20 mg/dL (7.1 mmol/L) or greater [ ]6) WBC count less than 4000/mm3 (4 x109/L) [ ]7) Platelet count <100,000/mm3 (100 x109/L) [ ]8) Temperature less than 36 degrees C (96.8 degrees F ) [ ]9) Hypotension requiring aggressive fluid resuscitation [ ]g) Pulmonary hypertension requiring initiation of parenteral pulmonary vasodilator or trial of inhaled nitric oxide (eg, need for right heart catheterization)(76) [ ]h) Impending respiratory failure as indicated by ANY ONE of the following: [ ]i) Respiratory rate greater than 30 or partial pressure of oxygen less than 60 mm Hg (8.0 kPa) on 50% oxygen or more [ ]ii) Partial pressure of carbon dioxide greater than 45 mm Hg (6.0 kPa) with pH less than 7.35 [ ]i) Respiratory failure with ANY ONE of the following (47): [ ]i) Need for invasive or noninvasive mechanical ventilation [ ]ii) High likelihood of requiring mechanical ventilation within 24 hours [ ]iii) Observation in the first several hours immediately after extubation from mechanical ventilation [ ]iv) Need for close observation and aggressive therapy, such as suctioning, chest physiotherapy, or inhalation treatments at intervals less than 1 hour [ ]v) Pharmacologic ventilatory paralysis [ ]j) Venous thromboembolism with need for systemic or catheter- directed thrombolysis (eg, for limb-threatening thrombosis, phlegmasia cerulea dolens) (83) [ ]k) Pulmonary embolus with ANY ONE of the following(83): [ ]i) Hypotension [ ]ii) Severe hypoxia [ ]iii) Dangerous arrhythmia [ ]iv) Bleeding [ ]v) Need for systemic or catheter-directed thrombolysis [ ]l) Lobectomy or other major thoracic surgery [ ]m) Lung transplant [ ]n) Symptomatic upper airway obstruction (eg, laryngeal edema, mass) [ ]o) Massive hemoptysis [ ]p) Infection or thrombosis of an intravenous device with ANY ONE of the following(6)(84): [ ]i) Hemodynamic instability [ ]ii) Requirement for frequent hemodynamic measurements [ ]iii) Shock [ ]iv) End organ dysfunction [ ] v) Acute renal failure due to missed dialysis [ ]vi) Unstable acute complication (eg, pericardial tamponade , tension pneumothorax) [ ]q) Traumatic rib fracture or fractures with ANY ONE of the following(85): [ ]i) Injury severity score of 19 or greater [ ]ii) Respiratory insufficiency [ ]iii) Flail chest [ ]iv) Sternum fracture [ ]v) Vascular injury (eg, heart or great vessels) [ ]r) Pleural effusion with ANY ONE of the following(86): [ ]i) Respiratory insufficiency [ ]ii) Hemothorax with active ongoing bleeding [ ]iii) Hemodynamic instability [ ]iv) Unstable comorbid condition (eg, sepsis or heart failure [ ]XX. Urology diagnoses or procedures, including ANY ONE of the following ( 87)(88): [ ]a) Renal transplant [ ]b) Complications of any surgery requiring ICU intervention as indicated by ANY ONE of the following: [ ]i) Hemodynamic instability [ ]ii) PA with complications (eg, severe arrhythmia, hypotension) [ ]iii) Excessive bleeding or severe coagulopathy [ ]iv) Respiratory failure [ ]v) Renal failure [ ]vi) Airway instability or obstruction [ ]vii) Neurologic deterioration [ ]viii) Infection with likelihood of sepsis syndrome or significant fluid shifts [ ]c) Preoperative or postoperative patients requiring ICU intervention , such as hemodynamic optimization, pulmonary artery monitoring, mechanical ventilation , or extensive nursing care [ ]XXI.Infectious Disease diagnoses or procedures, with ANY ONE of the following (6)(43): [ ]a) Hemodynamic instability [ ]b) Shock [ ]c) Requirement for frequent hemodynamic measurements (eg, arterial catheter, pulmonary artery catheter) [ ]d) Sepsis or suspected sepsis with end organ dysfunction (eg, acute kidney injury, acute respiratory distress syndrome) [ ]e) Necrotizing soft tissue infection [ ] XXII.Hematology - Oncology diagnoses or procedures, including chemotherapy administration with ANY ONE of the following(42): [ ]a) Hemodynamic instability [ ]b) Tumor lysis syndrome with ANY ONE of the following : [ ]1) Acute kidney injury [ ]2) Severe electrolyte abnormality [ ]3) Cardiac dysrhythmia [ ]XXIII. Systemic conditions, including ANY ONE of the following: [ ]a) Severe electrolyte or metabolic disturbance causing or likely to cause ANY ONE of the following(10)(89)(90): [ ]i) Life-threatening cardiac dysrhythmia [ ]ii) Respiratory insufficiency [ ]iii) Altered mental status [ ]iv) Seizures [ ]v) Hemodynamic instability [ ]vi) Muscular weakness [ ]b) Environmental injuries such as hypothermia, hyperthermia, electrical injuries, or near drowning(70)(91)(92) The original [facility] content created by [employer] has been revised. The portions of the content which have been revised are identified through the use of italic text or in bold, and [email or web address] has neither reviewed nor approved the modified material. All other unmodified content is copyright [facility]. Please see references footnoted in the original [facility] [employer] edition 2016 Admission Criteria Met?: Yes AGNES JAQUEZ Sep 10, 2016 01:23
[2016-09-10] MEDS: oxyCODONE/APAP 5/325 1 TAB TABLET PO PRN ×6 (02:04→21:28)
[2016-09-10] MEDS: MORPHINE SULFATE 2 MG/ML DISP.SYRIN. IV PRN ×2 (02:49→05:06)
--- NOTE | 2016-09-10 04:31 | EKG ---
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
[2016-09-10 06:27] LABS: HEMATOCRIT 21.1 % (36.0-47.0); HEMOGLOBIN 7.2 g/dL (12.0-15.5); RED BLOOD COUNT 2.45 x10^6/uL (3.50-5.40); RED CELL DISTRIBUTION WIDTH 15.2 % (11.5-14.5); WHITE BLOOD COUNT 13.8 x10^3/uL (4.0-11.0)
[2016-09-10 06:34] LABS: INR 1.3 (0.8-1.1); PROTHROMBIN TIME PATIENT 15.3 SEC (11.7-14.0)
[2016-09-10 06:51] LABS: CALCIUM 9.2 mg/dL (8.5-10.1); CREATININE 1.4 mg/dL (0.6-1.0); GFR 38.5; MAGNESIUM 2.2 mg/dL (1.8-2.4); POTASSIUM 5.1 mmol/L (3.5-5.1)
--- NOTE | 2016-09-10 07:41 | RAD ---
Portable chest, 09/10/2016: History: Postop evaluation, pain Comparison is made yesterday study. The ET tube has been removed. A right jugular [place]-Rand catheter remains in place with its tip overlying the right hilum. Two mediastinal drains and a right chest tube remain in place. The left ventricle is prominent. The pulmonary vascularity is somewhat poorly defined. There are unchanged right basilar pleural/parenchymal opacities, probably due to scarring. No definite pleural fluid is seen. There is no evidence of pneumothorax. IMPRESSION: 1. Several tubes and catheters remain in place as described above. 2. Mild vascular congestion.
[2016-09-10] MEDS: SENNOSIDES/DOCUSATE 8.6/50MG TABLET. PO SCH ×2 (07:50→21:27)
[2016-09-10] MEDS: ASPIRIN ENTERIC COATED 325 MG TABLET.DR. PO SCH (07:50)
--- NOTE | 2016-09-10 08:12 | PDOC ---
Provider Note Provider Note POD #1 Pt awake, alert SR VSS on low dose primacor and Cleviprex infusions cvp is low hgb is low CT output is appropriate creat noted at 1.4 Plan: D/C primacor, Cleviprex, SGC, Art line transfuse i unit PRBC up to chair DALTON GONZALES MD Sep 10, 2016 08:12
[2016-09-10] MEDS: AMIODARONE HCL 200 MG TABLET. PO SCH ×2 (09:00→21:27)
[2016-09-10] MEDS: METOPROLOL TART IMMED RELEASE 25 MG TABLET. PO SCH ×2 (09:00→21:32)
[2016-09-10] MEDS ORDERED: METOPROLOL TART IMMED RELEASE 25 MG TABLET. PO SCH ×2 (09:00)
[2016-09-10] MEDS ORDERED: AMIODARONE HCL 200 MG TABLET. PO SCH (09:00)
--- NOTE | 2016-09-10 09:01 | PDOC ---
SUBJECTIVE Subjective alert but quite, no complaints, seems comfortable OBJECTIVE Vital Signs Vital Signs Date Time Temp Pulse Resp B/P (MAP) Pulse Ox O2 Delivery O2 Flow Rate FiO2 09/10/16 07:50 80 153/51 09/10/16 07:50 80 153/51 09/10/16 07:49 20 100 Nasal Cannula 2.0 09/10/16 06:10 139/44 09/10/16 06:00 81 144/41 (75) 09/10/16 06:00 98.8 81 30 99 Nasal Cannula 2.0 98.8 09/10/16 05:30 141/41 09/10/16 05:06 31 09/10/16 05:00 83 114/39 (64) 09/10/16 05:00 99.0 83 31 100 Nasal Cannula 2.0 99.0 09/10/16 04:00 Nasal Cannula 2.0 09/10/16 04:00 99.1 86 26 100 Nasal Cannula 2.0 99.1 09/10/16 04:00 86 159/53 (88) 09/10/16 03:50 183/54 09/10/16 03:04 20 95 Nasal Cannula 2.0 09/10/16 03:04 20 95 Nasal Cannula 2.0 09/10/16 03:00 99.4 83 23 100 Nasal Cannula 2.0 99.4 09/10/16 03:00 83 132/40 (70) 09/10/16 02:50 116/36 09/10/16 02:49 22 96 Nasal Cannula 2.0 09/10/16 02:45 135/45 09/10/16 02:40 141/38 09/10/16 02:25 135/40 09/10/16 02:15 153/40 09/10/16 02:10 172/58 09/10/16 02:05 198/60 09/10/16 02:04 26 95 Nasal Cannula 2.0 09/10/16 02:00 81 151/42 (78) 09/10/16 02:00 81 28 100 Nasal Cannula 2.0 09/10/16 02:00 210/65 09/10/16 01:00 152/39 (76) 09/10/16 01:00 100.0 87 22 96 Nasal Cannula 2.0 100.0 09/10/16 00:00 86 140/37 (71) 09/09/16 23:59 86 30 97 Nasal Cannula 2.0 09/09/16 23:49 Nasal Cannula 2.0 09/09/16 23:00 140/36 (70) 09/09/16 23:00 100.1 86 24 97 Nasal Cannula 2.0 100.1 09/09/16 22:00 100.3 83 21 95 Nasal Cannula 2.0 100.3 09/09/16 22:00 114/35 (61) 09/09/16 21:00 100.8 83 24 100 Ventilator 100.8 09/09/16 21:00 119/38 (65) 09/09/16 20:00 106/36 (59) 09/09/16 20:00 101.0 83 15 100 Ventilator 101.0 09/09/16 20:00 Mechanical Ventilator 09/09/16 19:22 100 Ventilator 09/09/16 19:00 101/38 (59) 09/09/16 19:00 101.0 85 16 100 Ventilator 101.0 09/09/16 18:00 Mechanical Ventilator 09/09/16 17:41 100 Ventilator 09/09/16 17:00 Mechanical Ventilator 09/09/16 16:00 Mechanical Ventilator 09/09/16 15:31 190/78 09/09/16 15:30 Mechanical Ventilator 09/09/16 15:18 14 100 Ventilator 09/09/16 14:45 Mechanical Ventilator 09/09/16 14:30 100 Ventilator 09/09/16 14:30 95.3 83 14 162/68 (99) 100 Ventilator 95.3 I & O Intake and Output 09/10/16 07:00 Intake Total 2765.8 ml Output Total 2688 ml Balance 77.8 ml Intake Oral 820 ml IV Total 1945.8 ml Output Urine Total 1433 ml Gastric Drainage Total 25 ml Chest Tube Drainage Total 1230 ml PHYSICAL EXAM Physical Exam lungs with good air movement heart RRR abd soft ext no edema ASSESSMENT/PLAN Assessment/Plan 1- S/P CABG Day #1 2-ischemic cardiomyopathy 3- aortic stenosis 4. anemia expected post op , trasfusion today 5. Diabetes mellitus type 2, BS good 6. Coronary artery disease. 7. Peripheral vascular disease, rather severe for her age. 8. Osteoarthritis. agree with plans as per [facility] Problems: COMMENT Lab Laboratory Tests Test 09/09/16 09:19 09/09/16 09:21 09/09/16 09:50 09/09/16 10:07 Bedside Hematocrit 22 % (36-40) 18 % (36-40) Bedside Venous pH 7.37 (7.32-7.42) Bedside Venous pCO2 46 mmHg (41-51) Bedside Venous pO2 588 mmHg (20-40) Bedside Venous HCO3 27 mmol/L (24-28) Bedside Venous Blood Total CO2 28 mmol/L (21-32) Bedside Venous Blood O2 Saturation 100 % Bedside Venous Blood Base Excess 2 mmol/L (0-3) POC Venous Hemoglobin (Calc) 7.5 g/dL (12-15) Bedside FiO2 100 100.0 Bedside Sodium 137 mmol/L (135-145) 132 mmol/L (135-145) Bedside Potassium 3.8 mmol/L (3.5-5.0) 4.4 mmol/L (3.5-5.0) Glucose Level 157 mg/dL (70-99) 182 mg/dL (70-99) Bedside Ionized Calcium (Brock) 1.58 mmol/L (1.13-1.32) 1.04 mmol/L (1.13-1.32) Activated Clotting Time 547 SEC (90-125) 515 SEC (90-125) Bedside Hemoglobin (Calculated) 6.1 g/dL (12-15) Bedside Arterial pH 7.50 (7.35-7.45) Bedside Arterial pCO2 34 mmHg (35-45) Bedside Arterial pO2 649 mmHg (75-100) Bedside Arterial HCO3 26 mmol/L (21-28) Bedside Arterial Total CO2 27 mmol/L (21-32) Arterial Bld O2 Saturation (Measur) 100 % (95-99) Bedside Arterial Blood Base Excess 3 mmol/L (0-3) Test 09/09/16 10:10 09/09/16 10:25 09/09/16 10:28 09/09/16 10:39 Activated Clotting Time 519 SEC (90-125) 541 SEC (90-125) Bedside Hemoglobin (Calculated) 5.1 g/dL (12-15) 7.8 g/dL (12-15) Bedside Hematocrit 15 % (36-40) 23 % (36-40) Bedside Arterial pH 7.40 (7.35-7.45) 7.34 (7.35-7.45) Bedside Arterial pCO2 40 mmHg (35-45) 41 mmHg (35-45) Bedside Arterial pO2 572 mmHg (75-100) 598 mmHg (75-100) Bedside Arterial HCO3 25 mmol/L (21-28) 22 mmol/L (21-28) Bedside Arterial Total CO2 26 mmol/L (21-32) 23 mmol/L (21-32) Arterial Bld O2 Saturation (Measur) 100 % (95-99) 100 % (95-99) Bedside Arterial Blood Base Excess 0 mmol/L (0-3) -4 mmol/L (0-3) Bedside FiO2 100.0 100.0 Bedside Sodium 133 mmol/L (135-145) 132 mmol/L (135-145) Bedside Potassium 4.4 mmol/L (3.5-5.0) 5.0 mmol/L (3.5-5.0) Glucose Level 141 mg/dL (70-99) 175 mg/dL (70-99) Bedside Ionized Calcium (Brock) 1.01 mmol/L (1.13-1.32) 0.97 mmol/L (1.13-1.32) Test 09/09/16 10:42 09/09/16 11:09 09/09/16 11:11 09/09/16 11:38 Activated Clotting Time 518 SEC (90-125) 433 SEC (90-125) Bedside Hematocrit 27 % (36-40) 24 % (36-40) Bedside Venous pH 7.32 (7.32-7.42) Bedside Venous pCO2 44 mmHg (41-51) Bedside Venous pO2 37 mmHg (20-40) Bedside Venous HCO3 23 mmol/L (24-28) Bedside Venous Blood Total CO2 24 mmol/L (21-32) Bedside Venous Blood O2 Saturation 65 % Bedside Venous Blood Base Excess -3 mmol/L (0-3) POC Venous Hemoglobin (Calc) 9.2 g/dL (12-15) Bedside FiO2 100 100.0 Bedside Sodium 136 mmol/L (135-145) 137 mmol/L (135-145) Bedside Potassium 4.0 mmol/L (3.5-5.0) 4.3 mmol/L (3.5-5.0) Glucose Level 109 mg/dL (70-99) 78 mg/dL (70-99) Bedside Ionized Calcium (Brock) 1.03 mmol/L (1.13-1.32) 0.92 mmol/L (1.13-1.32) Bedside Hemoglobin (Calculated) 8.2 g/dL (12-15) Bedside Arterial pH 7.42 (7.35-7.45) Bedside Arterial pCO2 44 mmHg (35-45) Bedside Arterial pO2 583 mmHg (75-100) Bedside Arterial HCO3 28 mmol/L (21-28) Bedside Arterial Total CO2 29 mmol/L (21-32) Arterial Bld O2 Saturation (Measur) 100 % (95-99) Bedside Arterial Blood Base Excess 4 mmol/L (0-3) Test 09/09/16 11:41 09/09/16 12:14 09/09/16 12:16 09/09/16 12:38 Activated Clotting Time > 1000 SEC (90-125) > 1000 SEC (90-125) Bedside Hemoglobin (Calculated) 6.5 g/dL (12-15) 6.1 g/dL (12-15) Bedside Hematocrit 19 % (36-40) 18 % (36-40) Bedside Arterial pH 7.44 (7.35-7.45) 7.44 (7.35-7.45) Bedside Arterial pCO2 43 mmHg (35-45) 45 mmHg (35-45) Bedside Arterial pO2 540 mmHg (75-100) 559 mmHg (75-100) Bedside Arterial HCO3 29 mmol/L (21-28) 31 mmol/L (21-28) Bedside Arterial Total CO2 31 mmol/L (21-32) 32 mmol/L (21-32) Arterial Bld O2 Saturation (Measur) 100 % (95-99) 100 % (95-99) Bedside Arterial Blood Base Excess 5 mmol/L (0-3) 7 mmol/L (0-3) Bedside FiO2 100.0 100.0 Bedside Sodium 136 mmol/L (135-145) 135 mmol/L (135-145) Bedside Potassium 4.9 mmol/L (3.5-5.0) 4.4 mmol/L (3.5-5.0) Glucose Level 63 mg/dL (70-99) 109 mg/dL (70-99) Bedside Ionized Calcium (Brock) 0.97 mmol/L (1.13-1.32) 1.74 mmol/L (1.13-1.32) Test 09/09/16 12:41 09/09/16 13:10 09/09/16 13:13 09/09/16 13:25 Activated Clotting Time 786 SEC (90-125) 176 SEC (90-125) Bedside Hemoglobin (Calculated) 5.4 g/dL (12-15) Bedside Hematocrit 16 % (36-40) Bedside Arterial pH 7.39 (7.35-7.45) Bedside Arterial pCO2 47 mmHg (35-45) Bedside Arterial pO2 400 mmHg (75-100) Bedside Arterial HCO3 29 mmol/L (21-28) Bedside Arterial Total CO2 30 mmol/L (21-32) Arterial Bld O2 Saturation (Measur) 100 % (95-99) Bedside Arterial Blood Base Excess 4 mmol/L (0-3) Bedside FiO2 100.0 Bedside Sodium 138 mmol/L (135-145) Bedside Potassium 3.9 mmol/L (3.5-5.0) Glucose Level 112 mg/dL (70-99) Bedside Ionized Calcium (Brock) 1.24 mmol/L (1.13-1.32) White Blood Count 7.1 x10^3/uL (4.0-11.0) Hemoglobin 5.1 g/dL (12.0-15.5) Hematocrit 13.9 % (36.0-47.0) Platelet Count 86 x10^3/uL (140-400) Prothrombin Time 22.7 SEC (11.7-14.0) Prothromb Time International Ratio 2.2 (0.8-1.1) Activated Partial Thromboplast Time 58 SEC (24-38) Fibrinogen 111 mg/dL (200-440) Test 09/09/16 13:29 09/09/16 13:31 09/09/16 14:53 09/09/16 15:00 Bedside Hemoglobin (Calculated) 6.8 g/dL (12-15) Bedside Hematocrit 20 % (36-40) Bedside Arterial pH 7.37 (7.35-7.45) Bedside Arterial pCO2 51 mmHg (35-45) Bedside Arterial pO2 449 mmHg (75-100) Bedside Arterial HCO3 30 mmol/L (21-28) Bedside Arterial Total CO2 31 mmol/L (21-32) Arterial Bld O2 Saturation (Measur) 100 % (95-99) Bedside Arterial Blood Base Excess 4 mmol/L (0-3) Bedside FiO2 100.0 Bedside Sodium 137 mmol/L (135-145) Bedside Potassium 4.1 mmol/L (3.5-5.0) Glucose Level 113 mg/dL (70-99) Bedside Ionized Calcium (Brock) 1.42 mmol/L (1.13-1.32) Activated Clotting Time 151 SEC (90-125) Glucose (Fingerstick) 110 mg/dL (70-99) O2 Saturation 99 % (92-99) Arterial Blood pH 7.47 (7.35-7.45) Arterial Blood pCO2 at Patient Temp 34 mmHg (35-46) Arterial Blood pO2 at Patient Temp 374 mmHg (65-108) Arterial Blood HCO3 24 mmol/L (21-28) Arterial Blood Base Excess 1 mmol/L (-3-3) Oxyhemoglobin 97.9 % Methemoglobin 0.4 % (0.0-1.9) Carbon Monoxide, Quantitative 0.3 % (0.0-1.9) FiO2 100 Test 09/09/16 15:15 09/09/16 16:05 09/09/16 17:09 09/09/16 18:14 White Blood Count 9.9 x10^3/uL (4.0-11.0) Red Blood Count 3.09 x10^6/uL (3.50-5.40) Hemoglobin 9.2 g/dL (12.0-15.5) Hematocrit 26.0 % (36.0-47.0) Mean Corpuscular Volume 84 fL (79-100) Mean Corpuscular Hemoglobin 30 pg (25-35) Mean Corpuscular Hemoglobin Concent 36 g/dL (31-37) Red Cell Distribution Width 14.9 % (11.5-14.5) Platelet Count 154 x10^3/uL (140-400) Prothrombin Time 16.3 SEC (11.7-14.0) Prothromb Time International Ratio 1.4 (0.8-1.1) Activated Partial Thromboplast Time 37 SEC (24-38) Sodium Level 142 mmol/L (136-145) Potassium Level 3.9 mmol/L (3.5-5.1) Chloride Level 104 mmol/L (98-107) Carbon Dioxide Level 26 mmol/L (21-32) Anion Gap 12 (6-14) Blood Urea Nitrogen 17 mg/dL (7-20) Creatinine 0.9 mg/dL (0.6-1.0) Estimated GFR (Cockcroft-Gault) 64.1 Glucose Level 103 mg/dL (70-99) Calcium Level 9.6 mg/dL (8.5-10.1) Magnesium Level 2.2 mg/dL (1.8-2.4) Glucose (Fingerstick) 114 mg/dL (70-99) 135 mg/dL (70-99) 157 mg/dL (70-99) Test 09/09/16 19:15 09/09/16 19:29 09/09/16 19:30 09/09/16 20:32 Potassium Level 5.3 mmol/L (3.5-5.1) Glucose (Fingerstick) 185 mg/dL (70-99) 159 mg/dL (70-99) White Blood Count 13.8 x10^3/uL (4.0-11.0) Red Blood Count 2.62 x10^6/uL (3.50-5.40) Hemoglobin 7.8 g/dL (12.0-15.5) Hematocrit 22.5 % (36.0-47.0) Mean Corpuscular Volume 86 fL (79-100) Mean Corpuscular Hemoglobin 30 pg (25-35) Mean Corpuscular Hemoglobin Concent 35 g/dL (31-37) Red Cell Distribution Width 15.1 % (11.5-14.5) Platelet Count 146 x10^3/uL (140-400) Test 09/09/16 21:12 09/09/16 21:36 09/09/16 22:39 09/09/16 23:43 O2 Saturation 97 % (92-99) Arterial Blood pH 7.36 (7.35-7.45) Arterial Blood pH (Temp corrected) 7.35 Arterial Blood pCO2 at Patient Temp 45 mmHg (35-46) Arterial Blood pCO2 (Temp correct) 47 mmHg Arterial Blood pO2 at Patient Temp 106 mmHg (65-108) Arterial Blood pO2 (Temp corrected) 114 mmHg Arterial Blood HCO3 25 mmol/L (21-28) Arterial Blood Base Excess -1 mmol/L (-3-3) FiO2 40 Glucose (Fingerstick) 125 mg/dL (70-99) 110 mg/dL (70-99) 103 mg/dL (70-99) Test 09/10/16 00:46 09/10/16 01:48 09/10/16 02:50 09/10/16 03:54 Glucose (Fingerstick) 119 mg/dL (70-99) 147 mg/dL (70-99) 157 mg/dL (70-99) 167 mg/dL (70-99) Test 09/10/16 04:54 09/10/16 06:02 09/10/16 06:10 Glucose (Fingerstick) 173 mg/dL (70-99) 180 mg/dL (70-99) White Blood Count 13.8 x10^3/uL (4.0-11.0) Red Blood Count 2.45 x10^6/uL (3.50-5.40) Hemoglobin 7.2 g/dL (12.0-15.5) Hematocrit 21.1 % (36.0-47.0) Mean Corpuscular Volume 86 fL (79-100) Mean Corpuscular Hemoglobin 30 pg (25-35) Mean Corpuscular Hemoglobin Concent 34 g/dL (31-37) Red Cell Distribution Width 15.2 % (11.5-14.5) Platelet Count 138 x10^3/uL (140-400) Prothrombin Time 15.3 SEC (11.7-14.0) Prothromb Time International Ratio 1.3 (0.8-1.1) Sodium Level 143 mmol/L (136-145) Potassium Level 5.1 mmol/L (3.5-5.1) Chloride Level 107 mmol/L (98-107) Carbon Dioxide Level 26 mmol/L (21-32) Anion Gap 10 (6-14) Blood Urea Nitrogen 23 mg/dL (7-20) Creatinine 1.4 mg/dL (0.6-1.0) Estimated GFR (Cockcroft-Gault) 38.5 Glucose Level 176 mg/dL (70-99) Calcium Level 9.2 mg/dL (8.5-10.1) Magnesium Level 2.2 mg/dL (1.8-2.4) JOSH GANT MD Sep 10, 2016 09:01
--- NOTE | 2016-09-10 10:24 | OP ---
DATE OF SURGERY: 09/09/2016 PREOPERATIVE DIAGNOSES: 1. Coronary artery disease. 2. Congestive heart failure. 3. Severe cardiomyopathy, EF 25%. FINAL DIAGNOSES: 1. Coronary artery disease. 2. Congestive heart failure. 3. Severe cardiomyopathy, EF 25%. OPERATIVE PROCEDURE PERFORMED: 1. Coronary artery bypass grafting x 4 with saphenous vein graft to LAD, saphenous vein graft to OM, saphenous vein graft to PDA and into posterolateral branch. 2. Repair of right subclavian vein injury. SURGEON: Dr. Ignacio Hunter. DYE WINCH OPERATOR: ____. ANESTHESIA: DrIman ____, General anesthesia. OPERATIVE INDICATIONS: The patient is a 60-year-old female, who was presented recently to the [facility] with a diagnosis of congestive heart failure. She did not incur chest pain. Upon her evaluation, she had evidence of severe multivessel coronary artery disease including severe distal left main coronary artery lesion as well as occlusion of the right coronary artery. She had acceptable targets and was felt to be appropriate for coronary bypass grafting, despite her ejection fraction 25%. She is admitted and brought to the operating room now for that purpose. DESCRIPTION OF PROCEDURE: The patient brought to the operative room and placed on the OR table in supine position. After anesthesia was induced via the general endotracheal route and monitoring lines have been positioned, the patient was prepped and draped in sterile fashion with chlorhexidine. It should be noted that while placing the [place] catheter placement through the right internal jugular site. Fluid withdrawn from the side port, appeared very thin with a very low hematocrit. [place] catheter was unable to be successfully flow to that first and this IJ catheter was removed and a new one placed in the right IJ with successful positioning of the [place] catheter. During this time, the patient developed evidence of significant hypotension with systolic pressures temporarily down into the 30s and 40s. She was rescued with intermittent boluses of epinephrine as we rapidly prepped and draped. The patient performed median sternotomy incision. I immediately attempted to open the pericardium; however, the pericardium was stuck to the heart from prior pericarditis. The adhesions were soft and easily mobilized, but it did take at the ____ the patient was systemically anticoagulated with heparin and cannulae were placed in ascending aorta and one in the right atrium and we immediately began cardiopulmonary bypass. Antegrade and retrograde cardioplegic cannulas were positioned and after cardiopulmonary bypass was begun. A retrograde cardioplegic cannula was positioned and under low flow conditions, the aorta was cross clamped, the heart was arrested with cold antegrade cardioplegia, approximately 850 mL followed by cold retrograde cardioplegia 500 mL. This was augmented with topical ice slush. Diastolic arrest was achieved and maintained throughout this operation with intermittent doses of cold retrograde and antegrade cardioplegia as well as cardioplegia given down grafts and topical ice slush. I did open up the right pleural space in a limited fashion to ensure that the pneumothorax had not occurred and I did not see evidence of the pneumothorax. I also did not see evidence of any blood in the right pleural space on an initial entering on the pump upon the initial entering on the right pleural space. We then proceeded with grafting vessels as we felt that perhaps hypotension may have been related to the severe left main stenosis and severe LV dysfunction. We opened the LAD, which was a modest-sized vessel about 1.8-2 mm in size. Distal anastomosis was carried out in end-to-side fashion with 7-0 Prolene utilizing saphenous vein graft and then proximal fashion ascending aorta with 6-0 Prolene. We were getting ready to begin looking for the obtuse marginal vessel. We noted that there was bulging of the right pleural envelope and that the perfusion as mentioned, she was losing volumes. We opened the right pleural ____ completely and we removed approximately 3 liters of blood and in the right pleural space. I found a bleeding site from the subclavian vein with a stream of blood, shooting across the pleural space. I used a pledgeted 3-0 and a pledgeted 4-0 Prolene suture to close this site and controlled with it. We evacuated all blood from that pleural space. We then continued on with the obtuse marginal vessel about a 1.8 mm vessel, distal anastomosis was carried out in end-to-side fashion with 7-0 Prolene in a proximal fashion ascending aorta with 6-0 Prolene. Next, we examined the right coronary artery system. We grafted the posterolateral branch in end-to-side fashion with a small vessel, 1.5 mm in size and there were grafted in a [id number]-[id number] fashion with the PDA. This was also a small vessel about 1.4-1.5 mm in size. These anastomoses were both carried out with 7-0 Prolene and the vein graft was brought around to the ascending aorta and anastomosed there with 6-0 Prolene after 4.8 punch aortotomy was created. It should be noted that the saphenous vein was harvested from the right lower extremity using skip incisions. Under low flow conditions, the aorta crossclamp was released after de-airing of the ascending aorta and the vein graft. Also, warm cardioplegia was given before releasing the crossclamp. This began the period of reperfusion. The patient was rewarmed to 37 degree centigrade. We gave 3 successive doses of calcium and a single dose of magnesium all over 3-5 minute intervals. Atrial ventricular pacing wires were placed. We did AV sequentially pace the patient ultimately, she was bradycardic. We allowed a considerable period of time for reperfusion and we loaded with Primacor and began of Primacor infusion and supportive with epinephrine. The lungs were then inflated up. The patient was fully rewarmed. The patient was weaned from cardiopulmonary bypass on Primacor 0.5 mcg per kilo per minute and a low dose of epinephrine and Levophed. The epinephrine and Levophed where intermittently turned on and off during the remainder of this operation. Protamine was given to reverse the heparin, decannulation was effected. Once satisfactory hemostasis was achieved, placed two 32-Icelandic chest tubes in the anterior mediastinum and then the 32-[place]celand[place] chest tube in the right pleural space bringing them all out through separate stab incisions. The sternum was closed with #7 wire. The fascia, subcutaneous, and skin were closed in multiple layers with absorbable suture. It should be noted that a significant number of packed red blood cells, FFP and platelets were infused in the patient in order to control hemorrhage. Cardiopulmonary bypass time and crossclamp times are not available to me at the time of this dictation. IGNACIO HUNTER MD DR: LOS/britta JOB#: [id number] / [id number]
[2016-09-10] MEDS: IV RINGERS,LACTATED 1000ML 1,000 ML IV SCH (11:06)
--- NOTE | 2016-09-10 15:35 | PDOC2 ---
CONSULT Date of Consult Date of Consult DATE: 09/10/16 TIME: 15:16 Reason for Consult Reason for Consult: Left proximal humerus fracture Identification/Chief Complaint Chief Complaint Left proximal humerus fracture Problems: History of Present Illness Reason for Visit: 60 year old female with a left proximal humerus fracture sustained on 2016. She is a known patient to our practice and was last seen in our office for this fracture on 08/16/2016 during which she was placed in a sling with hand wrist and elbow exercises. She was treated nonoperatively as she is currently not a surgical candidate based on her health. We had requested she have her provider in the hospital consult us when she was in the hospital for her CABG so that we could follow up on her and get new Xrays, which she did. Her CABG is complete and now she is inpatient post operatively in the ICU. Past Medical History Cardiovascular: CAD, CHF, HTN, Aortic stenosis, Other (sleep apnea) Pulmonary: COPD, Pulmonary embolus, Other CENTRAL NERVOUS SYSTEM: Other GI: No pertinent hx, GERD Heme/Onc: No pertinent hx Hepatobiliary: No pertinent hx Psych: No pertinent hx, Anxiety, Depression Musculoskeletal: Osteoarthritis Rheumatologic: Fibromyalgia Infectious disease: Other Renal/: No pertinent hx Endocrine: Diabetes Past Surgical History Past Surgical History: Appendectomy, Cholecystectomy, Hysterectomy, Other (AAA repair, femeropopliteal bypass) Family History Family History: Alcohol Abuse, Cancer, Hypertension Social History Quit ALCOHOL: rare Drugs: None Lives: Alone Current Medications Current Medications Current Medications Ondansetron HCl (Zofran) 4 mg PRN Q6HRS PRN IV NAUSEA/VOMITING; Start 09/09/16 at 07:00; Stop 09/10/16 at 06:59; Status DC Fentanyl Citrate (Fentanyl 2ml Vial) 25 mcg PRN Q5MIN PRN IV MILD PAIN; Start 09/09/16 at 07:00; Stop 09/10/16 at 06:59; Status DC Fentanyl Citrate (Fentanyl 2ml Vial) 50 mcg PRN Q5MIN PRN IV MODERATE PAIN; Start 09/09/16 at 07:00; Stop 09/10/16 at 06:59; Status DC Ringer's Solution 1,000 ml @ 30 mls/hr Q24H IV Last administered on 09/09/16t 06:41; Start 09/09/16 at 07:00; Stop 09/09/16 at 18:59; Status DC Lidocaine HCl 2 ml PRN 1X PRN ID PRIOR TO IV START; Start 09/09/16 at 07:00; Stop 09/10/16 at 06:59; Status DC Prochlorperazine Edisylate (Compazine) 5 mg PACU PRN PRN IV NAUSEA, MRX1; Start 09/09/16 at 07:00; Stop 09/10/16 at 06:59; Status DC Potassium Chloride 70 meq/ Sodium Bicarbonate 12.5 meq/Lidocaine HCl 24 ml/ Parenteral Electrolytes 571.5 ml @ 571.5 mls/ hr 1X PERIOP ONCE IRR Last administered on 09/09/16 09:37; Start 09/09/16 at 06:00; Stop 09/09/16 at 06:59 ; Status DC Potassium Chloride 15 meq/ Sodium Bicarbonate 12.5 meq/Parenteral Electrolytes 520 ml @ 520 mls/hr 1X PERIOP ONCE IRR ; Start 09/09/16 at 06:00; Stop at 06:59; Status DC Heparin Sodium (Porcine) 72879 unit/Ringer's Solution 1,020 ml @ 1,020 mls/hr 1X PERIOP ONCE IRR Last administered on 09/09/16 09:11; Start 09/09/16 at 06: 00; Stop 09/09/16 at 06:59; Status DC Cefazolin Sodium/ Dextrose 50 ml @ 100 mls/hr 1X ONCE IV Last administered on 09/09/16 09:33; Start 09/09/16 at 06:00; Stop 09/09/16 at 06:29; Status DC Metoprolol Tartrate (Lopressor) 25 mg STK-MED ONCE .ROUTE ; Start 09/09/16 at 06 :19; Stop 09/09/16 at 06:20; Status DC Metoprolol Tartrate (Lopressor) 25 mg ONCE ONCE PO Last administered on 06:40; Start 09/09/16 at 06:45; Stop 09/09/16 at 06:46; Status DC Etomidate (Amidate) 20 mg STK-MED ONCE IV ; Start 09/09/16 at 06:53; Stop at 06:54; Status DC Phenylephrine HCl (Will-Synephrine Inj) 10 mg STK-MED ONCE .ROUTE ; Start at 06:53; Stop 09/09/16 at 06:54; Status DC Propofol 20 ml @ As Directed STK-MED ONCE IV ; Start 09/09/16 at 06:53; Stop at 06:54; Status DC Lidocaine HCl (Lidocaine Pf 2% Vial) 5 ml STK-MED ONCE .ROUTE ; Start 09/09/16 at 06:53; Stop 09/09/16 at 06:54; Status DC Aminocaproic Acid (Amicar) 5,000 mg STK-MED ONCE IV ; Start 09/09/16 at 06:53; Stop 09/09/16 at 06:54; Status DC Nitroglycerin/ Dextrose 0 ml @ As Directed STK-MED ONCE IV ; Start 09/09/16 at 06:53; Stop 09/09/16 at 06:54; Status DC Sufentanil Citrate (Sufenta) 250 mcg STK-MED ONCE .ROUTE ; Start 09/09/16 at 06: 53; Stop 09/09/16 at 06:54; Status DC Epinephrine HCl (Adrenalin) 1 mg STK-MED ONCE .ROUTE ; Start 09/09/16 at 06:54; Stop 09/09/16 at 06:55; Status DC Rocuronium [place] (Zemuron) 100 mg STK-MED ONCE .ROUTE ; Start 09/09/16 at 06: 54; Stop 09/09/16 at 06:55; Status DC Heparin Sodium (Porcine) 30,000 unit STK-MED ONCE .ROUTE ; Start 09/09/16 at 06: 55; Stop 09/09/16 at 06:56; Status DC Cellulose 1 each STK-MED ONCE .ROUTE Last administered on 09/09/16 09:11; Start 09/09/16 at 06:58; Stop 09/09/16 at 06:59; Status DC Papaverine HCl 60 mg STK-MED ONCE .ROUTE Last administered on 09/09/16 09:11; Start 09/09/16 at 06:58; Stop 09/09/16 at 06:59; Status DC Aspirin (Aspirin) 300 mg STK-MED ONCE .ROUTE Last administered on 09/09/16 14: 03; Start 09/09/16 at 06:58; Stop 09/09/16 at 06:59; Status DC Mineral Oil (Muri-Lube) 10 ml STK-MED ONCE MC Last administered on 09/09/16 12 :29; Start 09/09/16 at 06:58; Stop 09/09/16 at 06:59; Status DC Sodium Chloride (Sodium Chloride) 50 ml STK-MED ONCE IJ Last administered on 09:11; Start 09/09/16 at 06:58; Stop 09/09/16 at 06:59; Status DC Fentanyl Citrate (Fentanyl 5ml Vial) 250 mcg STK-MED ONCE .ROUTE ; Start at 07:02; Stop 09/09/16 at 07:03; Status DC Midazolam HCl (Versed) 5 mg STK-MED ONCE .ROUTE ; Start 09/09/16 at 07:08; Stop 09/09/16 at 07:09; Status DC Heparin Sodium (Porcine) 30,000 unit STK-MED ONCE .ROUTE ; Start 09/09/16 at 07: 15; Stop 09/09/16 at 07:16; Status DC Mannitol 500 ml @ 12.5 mls/hr 1X ONCE IV Last administered on 09/09/16 08:00 ; Start 09/09/16 at 08:00; Stop 09/10/16 at 23:59 Ephedrine Sulfate (Akovaz) 50 mg STK-MED ONCE .ROUTE ; Start 09/09/16 at 08:21; Stop 09/09/16 at 08:22; Status DC Norepinephrine Bitartrate 250 ml @ 0 mls/hr 1X ONCE IV Last administered on 08:30; Start 09/09/16 at 08:30; Stop 09/09/16 at 08:32; Status DC Milrinone Lactate/ Dextrose 100 ml @ 0 mls/hr 1X ONCE IV Last administered on 09/09/16 08:45; Start 09/09/16 at 08:45; Stop 09/09/16 at 08:46; Status DC Insulin Human Regular 150 unit/ Sodium Chloride 151.5 ml @ 0 mls/hr 1X ONCE IV Last administered on 09/09/16 15:35; Start 09/09/16 at 08:45; Stop at 08:46; Status DC Epinephrine HCl (Adrenalin) 30 mg STK-MED ONCE .ROUTE ; Start 09/09/16 at 09:34 ; Stop 09/09/16 at 09:35; Status DC Rocuronium [place] (Zemuron) 100 mg STK-MED ONCE .ROUTE ; Start 09/09/16 at 10: 30; Stop 09/09/16 at 10:31; Status DC Albumin Human 100 ml @ As Directed STK-MED ONCE IV ; Start 09/09/16 at 11:37; Stop 09/09/16 at 11:38; Status DC Albumin Human 100 ml @ As Directed STK-MED ONCE IV ; Start 09/09/16 at 11:37; Stop 09/09/16 at 11:38; Status DC Albumin Human 100 ml @ As Directed STK-MED ONCE IV ; Start 09/09/16 at 11:37; Stop 09/09/16 at 11:38; Status DC Albumin Human 100 ml @ As Directed STK-MED ONCE IV ; Start 09/09/16 at 11:37; Stop 09/09/16 at 11:38; Status DC Protamine Sulfate 50 mg STK-MED ONCE IV ; Start 09/09/16 at 13:09; Stop at 13:10; Status DC Lidocaine HCl (Xylocaine-Mpf 1% Vial) 5 ml STK-MED ONCE .ROUTE ; Start 09/09/16 at 13:13; Stop 09/09/16 at 13:14; Status DC Aminocaproic Acid (Amicar) 5,000 mg STK-MED ONCE IV ; Start 09/09/16 at 13:13; Stop 09/09/16 at 13:14; Status DC Magnesium Sulfate 5 gm STK-MED ONCE .ROUTE ; Start 09/09/16 at 13:13; Stop 09/09 at 13:14; Status DC Calcium Chloride 1,000 mg STK-MED ONCE IV ; Start 09/09/16 at 13:13; Stop at 13:14; Status DC Albumin Human 500 ml @ As Directed STK-MED ONCE IV ; Start 09/09/16 at 13:13; Stop 09/09/16 at 13:14; Status DC Heparin Sodium (Porcine) 30,000 unit STK-MED ONCE .ROUTE ; Start 09/09/16 at 13: 13; Stop 09/09/16 at 13:14; Status DC Sodium Chloride (Normal Saline Flush) 3 ml PRN Q12HR PRN IV AFTER MEDS AND BLOOD DRAWS; Start 09/09/16 at 13:00 Albumin Human 250 ml @ 60 mls/hr PRN Q4HRS PRN IV SEE I/O RECORD Last administered on 09/09/16 19:13; Start 09/09/16 at 13:00 Insulin Human Regular 150 unit/ Sodium Chloride 151.5 ml @ 0 mls/hr CONT PRN PRN IV SEE I/O RECORD Last administered on 09/10/16 11:05; Start 09/09/16 at 13: 00 Dextrose (Dextrose 50%-Water Syringe) 25 gm PRN Q15MIN PRN IV LOW BLOOD SUGAR; Start 09/09/16 at 13:00 Amiodarone HCl (Cordarone) 400 mg BID PO Last administered on 09/10/16 07:50; Start 09/10/16 at 09:00; Stop 09/10/16 at 09:00; Status DC Info 1 ea CONT PRN PRN MC SEE COMMENTS; Start 09/09/16 at 13:00 Info 1 ea CONT PRN PRN MC SEE COMMENTS; Start 09/09/16 at 13:00 Magnesium Sulfate/ Dextrose 100 ml @ 100 mls/hr PRN DAILY PRN IV FOR MAG < 2.2 ; Start 09/09/16 at 13:00 Ondansetron HCl (Zofran) 4 mg PRN Q4HRS PRN IV NAUSEA/VOMITING; Start 09/09/16 at 13:00 Morphine Sulfate 2 mg PRN Q1HR PRN IV PAIN Last administered on 09/10/16 05:06 ; Start 09/09/16 at 13:00 Acetaminophen (Tylenol) 650 mg PRN Q4HRS PRN PO MILD PAIN / TEMP; Start at 13:00 Meperidine HCl (Demerol) 12.5 mg PRN Q15MIN PRN IV SHIVERING; Start 09/09/16 at 13:00; Stop 09/10/16 at 08:19; Status DC Propofol 100 ml @ 0 mls/hr CONT PRN PRN IV POSTOP SEDATION UNTIL EXTUBATE; Start 09/09/16 at 13:00; Stop 09/10/16 at 08:16; Status DC Senna/Docusate Sodium (Senna Plus) 1 tab BID PO Last administered on 09/10/16 07:50; Start 09/09/16 at 21:00 Bisacodyl (Dulcolax Supp) 10 mg PRN DAILY PRN [place] NO BOWEL MOVEMENT; Start 09/09 at 13:00 Aspirin (Ecotrin) 325 mg DAILYWBKFT PO Last administered on 09/10/16 07:50; Start 09/10/16 at 08:00 Aspirin (Aspirin) 300 mg PRN DAILY PRN NH IF UNABLE TO TAKE PO; Start 09/09/16 at 13:00; Stop 09/10/16 at 08:18; Status DC Albuterol Sulfate (Ventolin Neb Soln) 2.5 mg PRN Q4HRS PRN NEB SHORTNESS OF BREATH; Start 09/09/16 at 13:00 Metoprolol Tartrate (Lopressor) 25 mg BID PO Last administered on 09/10/16 07: 50; Start 09/10/16 at 09:00; Stop 09/10/16 at 09:00; Status DC Clevidipine 100 ml @ 0 mls/hr CONT PRN IV PER PROTOCOL Last administered on 15:31; Start 09/09/16 at 13:00; Stop 09/10/16 at 08:16; Status DC Oxycodone/ Acetaminophen (Percocet 5/325) 1 tab PRN Q4HRS PRN PO MILD PAIN Last administered on 09/10/16 13:22; Start 09/09/16 at 13:00 Oxycodone/ Acetaminophen (Percocet 5/325) 2 tab PRN Q4HRS PRN PO MODERATE PAIN , SEVERE PAIN; Start 09/09/16 at 13:00 Cefazolin Sodium 1 gm/Sodium Chloride 50 ml @ 100 mls/hr Q8H IV ; Start at 15:00; Stop 09/09/16 at 15:00; Status DC Sodium Chloride 1,000 ml @ 0 mls/hr Q0M IV ; Start 09/09/16 at 13:00; Stop at 17:18; Status DC Famotidine (Pepcid) 20 mg QHS IVP Last administered on 09/09/16 21:29; Start 09/09/16 at 21:00 Protamine Sulfate 50 mg STK-MED ONCE IV ; Start 09/09/16 at 14:04; Stop at 14:05; Status DC Cefazolin Sodium 1 gm/Sodium Chloride 50 ml @ 100 mls/hr Q8H IV ; Start at 15:00; Stop 09/09/16 at 16:19; Status DC Isoflurane (Isoflurane) 90 ml STK-MED ONCE IH ; Start 09/09/16 at 14:08; Stop at 14:09; Status DC Epinephrine HCl (Adrenalin) 30 mg STK-MED ONCE .ROUTE ; Start 09/09/16 at 14:08 ; Stop 09/09/16 at 14:09; Status DC Epinephrine HCl 4 mg/Sodium Chloride 254 ml @ 0 mls/hr CONT PRN IV SEE I/O RECORD; Start 09/09/16 at 14:15; Stop 09/10/16 at 08:16; Status DC Milrinone Lactate/ Dextrose 100 ml @ 0 mls/hr CONT PRN IV SEE I/O RECORD Last administered on 09/09/16 19:42; Start 09/09/16 at 14:15; Stop 09/10/16 at 08:16 ; Status DC Nitroglycerin/ Dextrose 250 ml @ As Directed STK-MED ONCE IV ; Start 09/09/16 at 14:59; Stop 09/09/16 at 15:00; Status DC Nitroglycerin/ Dextrose 250 ml @ 0 mls/hr CONT PRN IV SEE I/O RECORD Last administered on 09/09/16 15:43; Start 09/09/16 at 15:45; Stop 09/10/16 at 08:16 ; Status DC Ringer's Solution 1,000 ml @ 30 mls/hr Q24H IV Last administered on 09/10/16 11:06; Start 09/09/16 at 15:45 Potassium Chloride 50 ml @ 50 mls/hr Q1H IV Last administered on 09/09/16 17: 32; Start 09/09/16 at 17:00; Stop 09/09/16 at 18:59; Status DC Cefazolin Sodium 1 gm/Sodium Chloride 50 ml @ 100 mls/hr Q8H IV Last administered on 09/10/16 13:19; Start 09/09/16 at 22:00; Stop 09/11/16 at 06:01 Amiodarone HCl (Cordarone) 200 mg BID PO ; Start 09/10/16 at 09:00 Metoprolol Tartrate (Lopressor) 12.5 mg BID PO ; Start 09/10/16 at 09:00 Metoprolol Tartrate (Lopressor) 12.5 mg BID PO ; Start 09/10/16 at 09:00; Status UNV Cefazolin Sodium/ Dextrose (Ancef 2gm Premix) 2 gm STK-MED ONCE IV ; Start 09/09 at 14:00; Stop 09/10/16 at 08:43; Status DC Active Scripts Active Xanax (Alprazolam) 0.5 Mg Tablet 1 Tab PO BID Novolog Flexpen (Insulin Aspart) 100 Unit/1 Ml Insuln.pen 5 Unit SQ TIDWMEALS 30 Days Levemir (Insulin Detemir) 100 Unit/1 Ml Vial 20 Unit SQ HS 30 Days Pantoprazole Sodium 40 Mg Tablet.dr 40 Mg PO DAILYAC 30 Days Reported Tylenol (Acetaminophen) 325 Mg Tablet 650 Mg PO PRN Q6HRS PRN Oxycodone Hcl 15 Mg Tablet 15 Mg PO PRN Q6HRS PRN Trazodone Hcl 50 Mg Tablet 100 Mg PO HS Chantix (Varenicline Tartrate) 1 Mg Tablet 1 Mg PO BID Cymbalta (Duloxetine Hcl) 60 Mg Capsule.dr 1 Cap PO BID Gabapentin 600 Mg Tablet 600 Mg PO TID Ambien (Zolpidem Tartrate) 10 Mg Tablet 1 Tab PO QHS NICODERM CQ 14mg (Nicotine) 1 Each Patch.td24 1 Patch TP DAILY Pentoxifylline 400 Mg Tablet.er 400 Mg PO BIDWMEALS Aspir-Low (Aspirin) 81 Mg Tablet.dr 1 Tab PO DAILY Voltaren (Diclofenac Sodium) 100 Gm Gel..gram. 1 Gm TP QID Allergies Allergies: Coded Allergies: hydrocodone (Verified Adverse Reaction, Intermediate, LOOPY, 09/09/16) N/V ROS Review of System Constitutional: appetite problems, fatigue, weight loss Skin/Breast: bruising Ear/Nose/Throat: dental problems Cardiovascular: Congestive heart failure, heart murmur Respiratory: history COPD, history Pulmonary Embolism Musculoskeletal: back pain. Psychiatric: anxious, depressed. Endocrine: diabetes, heat/cold intolerance, osteoporosis. Physical Exam Physical Exam Patient in and out of consciousness. Not very responsive. Left arm in sling in poor position. Sling repositioned placing the left arm and shoulder in an improved position. Patient has full ROM in flexion/extension of left elbow as well as pronation and supination of wrist. Left radial pulse full and normal. Remainder of distal neurovascular exam deferred due to level of consciousness. Vitals VITALS Vital Signs Date Time Temp Pulse Resp B/P (MAP) Pulse Ox O2 Delivery O2 Flow Rate FiO2 09/10/16 14:51 68 20 103/50 (67) 96 Room Air 09/10/16 12:00 98.2 98.2 09/10/16 10:00 2.0 Labs Labs Laboratory Tests Test 09/09/16 06:14 09/09/16 06:15 09/09/16 08:45 09/09/16 08:52 Glucose (Fingerstick) 152 mg/dL (70-99) Hemoglobin 11.4 g/dL (12.0-15.5) 11.0 g/dL (12.0-15.5) Hematocrit 34.2 % (36.0-47.0) 33.2 % (36.0-47.0) Mean Corpuscular Hemoglobin Concent 34 g/dL (31-37) Bedside Hemoglobin (Calculated) 10.2 g/dL (12-15) Bedside Hematocrit 30 % (36-40) Bedside Arterial pH 7.61 (7.35-7.45) Bedside Arterial pCO2 37 mmHg (35-45) Bedside Arterial pO2 540 mmHg (75-100) Bedside Arterial HCO3 37 mmol/L (21-28) Bedside Arterial Total CO2 38 mmol/L (21-32) Arterial Bld O2 Saturation (Measur) 100 % (95-99) Bedside Arterial Blood Base Excess 15 mmol/L (0-3) Bedside FiO2 100.0 Bedside Sodium 135 mmol/L (135-145) Bedside Potassium 3.6 mmol/L (3.5-5.0) Glucose Level 60 mg/dL (70-99) Bedside Ionized Calcium (Brock) 1.16 mmol/L (1.13-1.32) Test 09/09/16 08:55 09/09/16 09:19 09/09/16 09:21 7/31/17 09:50 Activated Clotting Time 118 SEC (90-125) 547 SEC (90-125) 515 SEC (90-125) Bedside Hematocrit 22 % (36-40) Bedside Venous pH 7.37 (7.32-7.42) Bedside Venous pCO2 46 mmHg (41-51) Bedside Venous pO2 588 mmHg (20-40) Bedside Venous HCO3 27 mmol/L (24-28) Bedside Venous Blood Total CO2 28 mmol/L (21-32) Bedside Venous Blood O2 Saturation 100 % Bedside Venous Blood Base Excess 2 mmol/L (0-3) POC Venous Hemoglobin (Calc) 7.5 g/dL (12-15) Bedside FiO2 100 Bedside Sodium 137 mmol/L (135-145) Bedside Potassium 3.8 mmol/L (3.5-5.0) Glucose Level 157 mg/dL (70-99) Bedside Ionized Calcium (Brock) 1.58 mmol/L (1.13-1.32) Test 09/09/16 10:07 09/09/16 10:10 09/09/16 10:25 09/09/16 10:28 Bedside Hemoglobin (Calculated) 6.1 g/dL (12-15) 5.1 g/dL (12-15) Bedside Hematocrit 18 % (36-40) 15 % (36-40) Bedside Arterial pH 7.50 (7.35-7.45) 7.40 (7.35-7.45) Bedside Arterial pCO2 34 mmHg (35-45) 40 mmHg (35-45) Bedside Arterial pO2 649 mmHg (75-100) 572 mmHg (75-100) Bedside Arterial HCO3 26 mmol/L (21-28) 25 mmol/L (21-28) Bedside Arterial Total CO2 27 mmol/L (21-32) 26 mmol/L (21-32) Arterial Bld O2 Saturation (Measur) 100 % (95-99) 100 % (95-99) Bedside Arterial Blood Base Excess 3 mmol/L (0-3) 0 mmol/L (0-3) Bedside FiO2 100.0 100.0 Bedside Sodium 132 mmol/L (135-145) 133 mmol/L (135-145) Bedside Potassium 4.4 mmol/L (3.5-5.0) 4.4 mmol/L (3.5-5.0) Glucose Level 182 mg/dL (70-99) 141 mg/dL (70-99) Bedside Ionized Calcium (Brock) 1.04 mmol/L (1.13-1.32) 1.01 mmol/L (1.13-1.32) Activated Clotting Time 519 SEC (90-125) 541 SEC (90-125) Test 09/09/16 10:39 09/09/16 10:42 09/09/16 11:09 09/09/16 11:11 Bedside Hemoglobin (Calculated) 7.8 g/dL (12-15) Bedside Hematocrit 23 % (36-40) 27 % (36-40) Bedside Arterial pH 7.34 (7.35-7.45) Bedside Arterial pCO2 41 mmHg (35-45) Bedside Arterial pO2 598 mmHg (75-100) Bedside Arterial HCO3 22 mmol/L (21-28) Bedside Arterial Total CO2 23 mmol/L (21-32) Arterial Bld O2 Saturation (Measur) 100 % (95-99) Bedside Arterial Blood Base Excess -4 mmol/L (0-3) Bedside FiO2 100.0 100 Bedside Sodium 132 mmol/L (135-145) 136 mmol/L (135-145) Bedside Potassium 5.0 mmol/L (3.5-5.0) 4.0 mmol/L (3.5-5.0) Glucose Level 175 mg/dL (70-99) 109 mg/dL (70-99) Bedside Ionized Calcium (Brock) 0.97 mmol/L (1.13-1.32) 1.03 mmol/L (1.13-1.32) Activated Clotting Time 518 SEC (90-125) 433 SEC (90-125) Bedside Venous pH 7.32 (7.32-7.42) Bedside Venous pCO2 44 mmHg (41-51) Bedside Venous pO2 37 mmHg (20-40) Bedside Venous HCO3 23 mmol/L (24-28) Bedside Venous Blood Total CO2 24 mmol/L (21-32) Bedside Venous Blood O2 Saturation 65 % Bedside Venous Blood Base Excess -3 mmol/L (0-3) POC Venous Hemoglobin (Calc) 9.2 g/dL (12-15) Test 09/09/16 11:38 09/09/16 11:41 09/09/16 12:14 09/09/16 12:16 Bedside Hemoglobin (Calculated) 8.2 g/dL (12-15) 6.5 g/dL (12-15) Bedside Hematocrit 24 % (36-40) 19 % (36-40) Bedside Arterial pH 7.42 (7.35-7.45) 7.44 (7.35-7.45) Bedside Arterial pCO2 44 mmHg (35-45) 43 mmHg (35-45) Bedside Arterial pO2 583 mmHg (75-100) 540 mmHg (75-100) Bedside Arterial HCO3 28 mmol/L (21-28) 29 mmol/L (21-28) Bedside Arterial Total CO2 29 mmol/L (21-32) 31 mmol/L (21-32) Arterial Bld O2 Saturation (Measur) 100 % (95-99) 100 % (95-99) Bedside Arterial Blood Base Excess 4 mmol/L (0-3) 5 mmol/L (0-3) Bedside FiO2 100.0 100.0 Bedside Sodium 137 mmol/L (135-145) 136 mmol/L (135-145) Bedside Potassium 4.3 mmol/L (3.5-5.0) 4.9 mmol/L (3.5-5.0) Glucose Level 78 mg/dL (70-99) 63 mg/dL (70-99) Bedside Ionized Calcium (Brock) 0.92 mmol/L (1.13-1.32) 0.97 mmol/L (1.13-1.32) Activated Clotting Time > 1000 SEC (90-125) > 1000 SEC (90-125) Test 09/09/16 12:38 09/09/16 12:41 09/09/16 13:10 09/09/16 13:13 Bedside Hemoglobin (Calculated) 6.1 g/dL (12-15) 5.4 g/dL (12-15) Bedside Hematocrit 18 % (36-40) 16 % (36-40) Bedside Arterial pH 7.44 (7.35-7.45) 7.39 (7.35-7.45) Bedside Arterial pCO2 45 mmHg (35-45) 47 mmHg (35-45) Bedside Arterial pO2 559 mmHg (75-100) 400 mmHg (75-100) Bedside Arterial HCO3 31 mmol/L (21-28) 29 mmol/L (21-28) Bedside Arterial Total CO2 32 mmol/L (21-32) 30 mmol/L (21-32) Arterial Bld O2 Saturation (Measur) 100 % (95-99) 100 % (95-99) Bedside Arterial Blood Base Excess 7 mmol/L (0-3) 4 mmol/L (0-3) Bedside FiO2 100.0 100.0 Bedside Sodium 135 mmol/L (135-145) 138 mmol/L (135-145) Bedside Potassium 4.4 mmol/L (3.5-5.0) 3.9 mmol/L (3.5-5.0) Glucose Level 109 mg/dL (70-99) 112 mg/dL (70-99) Bedside Ionized Calcium (Brock) 1.74 mmol/L (1.13-1.32) 1.24 mmol/L (1.13-1.32) Activated Clotting Time 786 SEC (90-125) 176 SEC (90-125) Test 09/09/16 13:25 09/09/16 13:29 09/09/16 13:31 09/09/16 14:53 White Blood Count 7.1 x10^3/uL (4.0-11.0) Hemoglobin 5.1 g/dL (12.0-15.5) Hematocrit 13.9 % (36.0-47.0) Platelet Count 86 x10^3/uL (140-400) Prothrombin Time 22.7 SEC (11.7-14.0) Prothromb Time International Ratio 2.2 (0.8-1.1) Activated Partial Thromboplast Time 58 SEC (24-38) Fibrinogen 111 mg/dL (200-440) Bedside Hemoglobin (Calculated) 6.8 g/dL (12-15) Bedside Hematocrit 20 % (36-40) Bedside Arterial pH 7.37 (7.35-7.45) Bedside Arterial pCO2 51 mmHg (35-45) Bedside Arterial pO2 449 mmHg (75-100) Bedside Arterial HCO3 30 mmol/L (21-28) Bedside Arterial Total CO2 31 mmol/L (21-32) Arterial Bld O2 Saturation (Measur) 100 % (95-99) Bedside Arterial Blood Base Excess 4 mmol/L (0-3) Bedside FiO2 100.0 Bedside Sodium 137 mmol/L (135-145) Bedside Potassium 4.1 mmol/L (3.5-5.0) Glucose Level 113 mg/dL (70-99) Bedside Ionized Calcium (Brock) 1.42 mmol/L (1.13-1.32) Activated Clotting Time 151 SEC (90-125) Glucose (Fingerstick) 110 mg/dL (70-99) Test 09/09/16 15:00 09/09/16 15:15 09/09/16 16:05 09/09/16 17:09 O2 Saturation 99 % (92-99) Arterial Blood pH 7.47 (7.35-7.45) Arterial Blood pCO2 at Patient Temp 34 mmHg (35-46) Arterial Blood pO2 at Patient Temp 374 mmHg (65-108) Arterial Blood HCO3 24 mmol/L (21-28) Arterial Blood Base Excess 1 mmol/L (-3-3) Oxyhemoglobin 97.9 % Methemoglobin 0.4 % (0.0-1.9) Carbon Monoxide, Quantitative 0.3 % (0.0-1.9) FiO2 100 White Blood Count 9.9 x10^3/uL (4.0-11.0) Red Blood Count 3.09 x10^6/uL (3.50-5.40) Hemoglobin 9.2 g/dL (12.0-15.5) Hematocrit 26.0 % (36.0-47.0) Mean Corpuscular Volume 84 fL (79-100) Mean Corpuscular Hemoglobin 30 pg (25-35) Mean Corpuscular Hemoglobin Concent 36 g/dL (31-37) Red Cell Distribution Width 14.9 % (11.5-14.5) Platelet Count 154 x10^3/uL (140-400) Prothrombin Time 16.3 SEC (11.7-14.0) Prothromb Time International Ratio 1.4 (0.8-1.1) Activated Partial Thromboplast Time 37 SEC (24-38) Sodium Level 142 mmol/L (136-145) Potassium Level 3.9 mmol/L (3.5-5.1) Chloride Level 104 mmol/L (98-107) Carbon Dioxide Level 26 mmol/L (21-32) Anion Gap 12 (6-14) Blood Urea Nitrogen 17 mg/dL (7-20) Creatinine 0.9 mg/dL (0.6-1.0) Estimated GFR (Cockcroft-Gault) 64.1 Glucose Level 103 mg/dL (70-99) Calcium Level 9.6 mg/dL (8.5-10.1) Magnesium Level 2.2 mg/dL (1.8-2.4) Glucose (Fingerstick) 114 mg/dL (70-99) 135 mg/dL (70-99) Test 09/09/16 18:14 09/09/16 19:15 09/09/16 19:29 09/09/16 19:30 Glucose (Fingerstick) 157 mg/dL (70-99) 185 mg/dL (70-99) Potassium Level 5.3 mmol/L (3.5-5.1) White Blood Count 13.8 x10^3/uL (4.0-11.0) Red Blood Count 2.62 x10^6/uL (3.50-5.40) Hemoglobin 7.8 g/dL (12.0-15.5) Hematocrit 22.5 % (36.0-47.0) Mean Corpuscular Volume 86 fL (79-100) Mean Corpuscular Hemoglobin 30 pg (25-35) Mean Corpuscular Hemoglobin Concent 35 g/dL (31-37) Red Cell Distribution Width 15.1 % (11.5-14.5) Platelet Count 146 x10^3/uL (140-400) Test 09/09/16 20:32 09/09/16 21:12 09/09/16 21:36 09/09/16 22:39 Glucose (Fingerstick) 159 mg/dL (70-99) 125 mg/dL (70-99) 110 mg/dL (70-99) O2 Saturation 97 % (92-99) Arterial Blood pH 7.36 (7.35-7.45) Arterial Blood pH (Temp corrected) 7.35 Arterial Blood pCO2 at Patient Temp 45 mmHg (35-46) Arterial Blood pCO2 (Temp correct) 47 mmHg Arterial Blood pO2 at Patient Temp 106 mmHg (65-108) Arterial Blood pO2 (Temp corrected) 114 mmHg Arterial Blood HCO3 25 mmol/L (21-28) Arterial Blood Base Excess -1 mmol/L (-3-3) FiO2 40 Test 09/09/16 23:43 09/10/16 00:46 09/10/16 01:48 09/10/16 02:50 Glucose (Fingerstick) 103 mg/dL (70-99) 119 mg/dL (70-99) 147 mg/dL (70-99) 157 mg/dL (70-99) Test 09/10/16 03:54 09/10/16 04:54 09/10/16 06:02 09/10/16 06:10 Glucose (Fingerstick) 167 mg/dL (70-99) 173 mg/dL (70-99) 180 mg/dL (70-99) White Blood Count 13.8 x10^3/uL (4.0-11.0) Red Blood Count 2.45 x10^6/uL (3.50-5.40) Hemoglobin 7.2 g/dL (12.0-15.5) Hematocrit 21.1 % (36.0-47.0) Mean Corpuscular Volume 86 fL (79-100) Mean Corpuscular Hemoglobin 30 pg (25-35) Mean Corpuscular Hemoglobin Concent 34 g/dL (31-37) Red Cell Distribution Width 15.2 % (11.5-14.5) Platelet Count 138 x10^3/uL (140-400) Prothrombin Time 15.3 SEC (11.7-14.0) Prothromb Time International Ratio 1.3 (0.8-1.1) Sodium Level 143 mmol/L (136-145) Potassium Level 5.1 mmol/L (3.5-5.1) Chloride Level 107 mmol/L (98-107) Carbon Dioxide Level 26 mmol/L (21-32) Anion Gap 10 (6-14) Blood Urea Nitrogen 23 mg/dL (7-20) Creatinine 1.4 mg/dL (0.6-1.0) Estimated GFR (Cockcroft-Gault) 38.5 Glucose Level 176 mg/dL (70-99) Calcium Level 9.2 mg/dL (8.5-10.1) Magnesium Level 2.2 mg/dL (1.8-2.4) Test 09/10/16 07:02 09/10/16 08:18 09/10/16 09:44 09/10/16 10:53 Glucose (Fingerstick) 152 mg/dL (70-99) 164 mg/dL (70-99) 124 mg/dL (70-99) 95 mg/dL (70-99) Test 09/10/16 12:02 09/10/16 13:14 09/10/16 14:25 Glucose (Fingerstick) 148 mg/dL (70-99) 115 mg/dL (70-99) 90 mg/dL (70-99) Laboratory Tests Test 09/09/16 16:05 09/09/16 17:09 09/09/16 18:14 09/09/16 19:15 Glucose (Fingerstick) 114 mg/dL (70-99) 135 mg/dL (70-99) 157 mg/dL (70-99) Potassium Level 5.3 mmol/L (3.5-5.1) Test 09/09/16 19:29 09/09/16 19:30 09/09/16 20:32 09/09/16 21:12 Glucose (Fingerstick) 185 mg/dL (70-99) 159 mg/dL (70-99) White Blood Count 13.8 x10^3/uL (4.0-11.0) Red Blood Count 2.62 x10^6/uL (3.50-5.40) Hemoglobin 7.8 g/dL (12.0-15.5) Hematocrit 22.5 % (36.0-47.0) Mean Corpuscular Volume 86 fL (79-100) Mean Corpuscular Hemoglobin 30 pg (25-35) Mean Corpuscular Hemoglobin Concent 35 g/dL (31-37) Red Cell Distribution Width 15.1 % (11.5-14.5) Platelet Count 146 x10^3/uL (140-400) O2 Saturation 97 % (92-99) Arterial Blood pH 7.36 (7.35-7.45) Arterial Blood pH (Temp corrected) 7.35 Arterial Blood pCO2 at Patient Temp 45 mmHg (35-46) Arterial Blood pCO2 (Temp correct) 47 mmHg Arterial Blood pO2 at Patient Temp 106 mmHg (65-108) Arterial Blood pO2 (Temp corrected) 114 mmHg Arterial Blood HCO3 25 mmol/L (21-28) Arterial Blood Base Excess -1 mmol/L (-3-3) FiO2 40 Test 09/09/16 21:36 09/09/16 22:39 09/09/16 23:43 09/10/16 00:46 Glucose (Fingerstick) 125 mg/dL (70-99) 110 mg/dL (70-99) 103 mg/dL (70-99) 119 mg/dL (70-99) Test 09/10/16 01:48 09/10/16 02:50 09/10/16 03:54 09/10/16 04:54 Glucose (Fingerstick) 147 mg/dL (70-99) 157 mg/dL (70-99) 167 mg/dL (70-99) 173 mg/dL (70-99) Test 09/10/16 06:02 09/10/16 06:10 09/10/16 07:02 09/10/16 08:18 Glucose (Fingerstick) 180 mg/dL (70-99) 152 mg/dL (70-99) 164 mg/dL (70-99) White Blood Count 13.8 x10^3/uL (4.0-11.0) Red Blood Count 2.45 x10^6/uL (3.50-5.40) Hemoglobin 7.2 g/dL (12.0-15.5) Hematocrit 21.1 % (36.0-47.0) Mean Corpuscular Volume 86 fL (79-100) Mean Corpuscular Hemoglobin 30 pg (25-35) Mean Corpuscular Hemoglobin Concent 34 g/dL (31-37) Red Cell Distribution Width 15.2 % (11.5-14.5) Platelet Count 138 x10^3/uL (140-400) Prothrombin Time 15.3 SEC (11.7-14.0) Prothromb Time International Ratio 1.3 (0.8-1.1) Sodium Level 143 mmol/L (136-145) Potassium Level 5.1 mmol/L (3.5-5.1) Chloride Level 107 mmol/L (98-107) Carbon Dioxide Level 26 mmol/L (21-32) Anion Gap 10 (6-14) Blood Urea Nitrogen 23 mg/dL (7-20) Creatinine 1.4 mg/dL (0.6-1.0) Estimated GFR (Cockcroft-Gault) 38.5 Glucose Level 176 mg/dL (70-99) Calcium Level 9.2 mg/dL (8.5-10.1) Magnesium Level 2.2 mg/dL (1.8-2.4) Test 09/10/16 09:44 09/10/16 10:53 09/10/16 12:02 09/10/16 13:14 Glucose (Fingerstick) 124 mg/dL (70-99) 95 mg/dL (70-99) 148 mg/dL (70-99) 115 mg/dL (70-99) Test 09/10/16 14:25 Glucose (Fingerstick) 90 mg/dL (70-99) Assessment/Plan Assessment/Plan Will order new left humerus Xrays today and review them tomorrow. Will complete Distal neurovascular exam tomorrow morning when the patient is more coherent. PT/OT: LUE hand wrist and elbow exercises only for now. Will reassess based on xrays. Continue NWB except for ADLs as tolerated, i.e. feeding/drinking/ toothbrusing as needed, but left is non-dominant arm. Pain: Patient does not appear in pain during this visit. Will reassess with improved level of consciousness. TRISTON OLIVAS PAC Sep 10, 2016 15:35
--- NOTE | 2016-09-10 19:21 | PDOC ---
PROGRESS NOTES Subjective Subjective Patient confused, speaks slowly and mostly single words. BP and rhythm stable Objective Objective Vital Signs Date Time Temp Pulse Resp B/P (MAP) Pulse Ox O2 Delivery O2 Flow Rate FiO2 09/10/16 18:22 20 96 Room Air 09/10/16 18:00 63 130/55 (80) 09/10/16 16:00 98.4 98.4 09/10/16 10:00 2.0 Intake and Output 09/10/16 07:00 Intake Total 3175.8 ml Output Total 2733 ml Balance 442.8 ml Intake Oral 1180 ml IV Total 1995.8 ml Output Urine Total 1478 ml Gastric Drainage Total 25 ml Chest Tube Drainage Total 1230 ml Physical Exam Physical Exam Moving air well. No changes in heart sounds Assessment Assessment Patient is extubated and stable hemodynamically however appears to have an encephalopathy that may be hypotensive or hypoxic in origin. Would continue to monitor her and give her time to involve. Comment Review of Relevant I have reviewed the following items sarahy (where applicable) has been applied. Labs Laboratory Tests Test 09/09/16 06:14 09/09/16 06:15 09/09/16 08:45 09/09/16 08:52 Glucose (Fingerstick) 152 mg/dL (70-99) Hemoglobin 11.4 g/dL (12.0-15.5) 11.0 g/dL (12.0-15.5) Hematocrit 34.2 % (36.0-47.0) 33.2 % (36.0-47.0) Mean Corpuscular Hemoglobin Concent 34 g/dL (31-37) Bedside Hemoglobin (Calculated) 10.2 g/dL (12-15) Bedside Hematocrit 30 % (36-40) Bedside Arterial pH 7.61 (7.35-7.45) Bedside Arterial pCO2 37 mmHg (35-45) Bedside Arterial pO2 540 mmHg (75-100) Bedside Arterial HCO3 37 mmol/L (21-28) Bedside Arterial Total CO2 38 mmol/L (21-32) Arterial Bld O2 Saturation (Measur) 100 % (95-99) Bedside Arterial Blood Base Excess 15 mmol/L (0-3) Bedside FiO2 100.0 Bedside Sodium 135 mmol/L (135-145) Bedside Potassium 3.6 mmol/L (3.5-5.0) Glucose Level 60 mg/dL (70-99) Bedside Ionized Calcium (Brock) 1.16 mmol/L (1.13-1.32) Test 09/09/16 08:55 09/09/16 09:19 09/09/16 09:21 09/09/16 09:50 Activated Clotting Time 118 SEC (90-125) 547 SEC (90-125) 515 SEC (90-125) Bedside Hematocrit 22 % (36-40) Bedside Venous pH 7.37 (7.32-7.42) Bedside Venous pCO2 46 mmHg (41-51) Bedside Venous pO2 588 mmHg (20-40) Bedside Venous HCO3 27 mmol/L (24-28) Bedside Venous Blood Total CO2 28 mmol/L (21-32) Bedside Venous Blood O2 Saturation 100 % Bedside Venous Blood Base Excess 2 mmol/L (0-3) POC Venous Hemoglobin (Calc) 7.5 g/dL (12-15) Bedside FiO2 100 Bedside Sodium 137 mmol/L (135-145) Bedside Potassium 3.8 mmol/L (3.5-5.0) Glucose Level 157 mg/dL (70-99) Bedside Ionized Calcium (Brock) 1.58 mmol/L (1.13-1.32) Test 09/09/16 10:07 09/09/16 10:10 09/09/16 10:25 09/09/16 10:28 Bedside Hemoglobin (Calculated) 6.1 g/dL (12-15) 5.1 g/dL (12-15) Bedside Hematocrit 18 % (36-40) 15 % (36-40) Bedside Arterial pH 7.50 (7.35-7.45) 7.40 (7.35-7.45) Bedside Arterial pCO2 34 mmHg (35-45) 40 mmHg (35-45) Bedside Arterial pO2 649 mmHg (75-100) 572 mmHg (75-100) Bedside Arterial HCO3 26 mmol/L (21-28) 25 mmol/L (21-28) Bedside Arterial Total CO2 27 mmol/L (21-32) 26 mmol/L (21-32) Arterial Bld O2 Saturation (Measur) 100 % (95-99) 100 % (95-99) Bedside Arterial Blood Base Excess 3 mmol/L (0-3) 0 mmol/L (0-3) Bedside FiO2 100.0 100.0 Bedside Sodium 132 mmol/L (135-145) 133 mmol/L (135-145) Bedside Potassium 4.4 mmol/L (3.5-5.0) 4.4 mmol/L (3.5-5.0) Glucose Level 182 mg/dL (70-99) 141 mg/dL (70-99) Bedside Ionized Calcium (Brock) 1.04 mmol/L (1.13-1.32) 1.01 mmol/L (1.13-1.32) Activated Clotting Time 519 SEC (90-125) 541 SEC (90-125) Test 09/09/16 10:39 09/09/16 10:42 09/09/16 11:09 09/09/16 11:11 Bedside Hemoglobin (Calculated) 7.8 g/dL (12-15) Bedside Hematocrit 23 % (36-40) 27 % (36-40) Bedside Arterial pH 7.34 (7.35-7.45) Bedside Arterial pCO2 41 mmHg (35-45) Bedside Arterial pO2 598 mmHg (75-100) Bedside Arterial HCO3 22 mmol/L (21-28) Bedside Arterial Total CO2 23 mmol/L (21-32) Arterial Bld O2 Saturation (Measur) 100 % (95-99) Bedside Arterial Blood Base Excess -4 mmol/L (0-3) Bedside FiO2 100.0 100 Bedside Sodium 132 mmol/L (135-145) 136 mmol/L (135-145) Bedside Potassium 5.0 mmol/L (3.5-5.0) 4.0 mmol/L (3.5-5.0) Glucose Level 175 mg/dL (70-99) 109 mg/dL (70-99) Bedside Ionized Calcium (Brock) 0.97 mmol/L (1.13-1.32) 1.03 mmol/L (1.13-1.32) Activated Clotting Time 518 SEC (90-125) 433 SEC (90-125) Bedside Venous pH 7.32 (7.32-7.42) Bedside Venous pCO2 44 mmHg (41-51) Bedside Venous pO2 37 mmHg (20-40) Bedside Venous HCO3 23 mmol/L (24-28) Bedside Venous Blood Total CO2 24 mmol/L (21-32) Bedside Venous Blood O2 Saturation 65 % Bedside Venous Blood Base Excess -3 mmol/L (0-3) POC Venous Hemoglobin (Calc) 9.2 g/dL (12-15) Test 09/09/16 11:38 09/09/16 11:41 09/09/16 12:14 09/09/16 12:16 Bedside Hemoglobin (Calculated) 8.2 g/dL (-15) 6.5 g/dL (12-15) Bedside Hematocrit 24 % (36-40) 19 % (36-40) Bedside Arterial pH 7.42 (7.35-7.45) 7.44 (7.35-7.45) Bedside Arterial pCO2 44 mmHg (35-45) 43 mmHg (35-45) Bedside Arterial pO2 583 mmHg (75-100) 540 mmHg (75-100) Bedside Arterial HCO3 28 mmol/L (21-28) 29 mmol/L (21-28) Bedside Arterial Total CO2 29 mmol/L (21-32) 31 mmol/L (21-32) Arterial Bld O2 Saturation (Measur) 100 % (95-99) 100 % (95-99) Bedside Arterial Blood Base Excess 4 mmol/L (0-3) 5 mmol/L (0-3) Bedside FiO2 100.0 100.0 Bedside Sodium 137 mmol/L (135-145) 136 mmol/L (135-145) Bedside Potassium 4.3 mmol/L (3.5-5.0) 4.9 mmol/L (3.5-5.0) Glucose Level 78 mg/dL (70-99) 63 mg/dL (70-99) Bedside Ionized Calcium (Brock) 0.92 mmol/L (1.13-1.32) 0.97 mmol/L (1.13-1.32) Activated Clotting Time > 1000 SEC (90-125) > 1000 SEC (90-125) Test 09/09/16 12:38 09/09/16 12:41 09/09/16 13:10 09/09/16 13:13 Bedside Hemoglobin (Calculated) 6.1 g/dL (-15) 5.4 g/dL (12-15) Bedside Hematocrit 18 % (36-40) 16 % (36-40) Bedside Arterial pH 7.44 (7.35-7.45) 7.39 (7.35-7.45) Bedside Arterial pCO2 45 mmHg (35-45) 47 mmHg (35-45) Bedside Arterial pO2 559 mmHg (75-100) 400 mmHg (75-100) Bedside Arterial HCO3 31 mmol/L (21-28) 29 mmol/L (21-28) Bedside Arterial Total CO2 32 mmol/L (21-32) 30 mmol/L (21-32) Arterial Bld O2 Saturation (Measur) 100 % (95-99) 100 % (95-99) Bedside Arterial Blood Base Excess 7 mmol/L (0-3) 4 mmol/L (0-3) Bedside FiO2 100.0 100.0 Bedside Sodium 135 mmol/L (135-145) 138 mmol/L (135-145) Bedside Potassium 4.4 mmol/L (3.5-5.0) 3.9 mmol/L (3.5-5.0) Glucose Level 109 mg/dL (70-99) 112 mg/dL (70-99) Bedside Ionized Calcium (Brock) 1.74 mmol/L (1.13-1.32) 1.24 mmol/L (1.13-1.32) Activated Clotting Time 786 SEC (90-125) 176 SEC (90-125) Test 09/09/16 13:25 09/09/16 13:29 09/09/16 13:31 09/09/16 14:53 White Blood Count 7.1 x10^3/uL (4.0-11.0) Hemoglobin 5.1 g/dL (12.0-15.5) Hematocrit 13.9 % (36.0-47.0) Platelet Count 86 x10^3/uL (140-400) Prothrombin Time 22.7 SEC (11.7-14.0) Prothromb Time International Ratio 2.2 (0.8-1.1) Activated Partial Thromboplast Time 58 SEC (24-38) Fibrinogen 111 mg/dL (200-440) Bedside Hemoglobin (Calculated) 6.8 g/dL (12-15) Bedside Hematocrit 20 % (36-40) Bedside Arterial pH 7.37 (7.35-7.45) Bedside Arterial pCO2 51 mmHg (35-45) Bedside Arterial pO2 449 mmHg (75-100) Bedside Arterial HCO3 30 mmol/L (21-28) Bedside Arterial Total CO2 31 mmol/L (21-32) Arterial Bld O2 Saturation (Measur) 100 % (95-99) Bedside Arterial Blood Base Excess 4 mmol/L (0-3) Bedside FiO2 100.0 Bedside Sodium 137 mmol/L (135-145) Bedside Potassium 4.1 mmol/L (3.5-5.0) Glucose Level 113 mg/dL (70-99) Bedside Ionized Calcium (Brock) 1.42 mmol/L (1.13-1.32) Activated Clotting Time 151 SEC (90-125) Glucose (Fingerstick) 110 mg/dL (70-99) Test 09/09/16 15:00 09/09/16 15:15 09/09/16 16:05 09/09/16 17:09 O2 Saturation 99 % (92-99) Arterial Blood pH 7.47 (7.35-7.45) Arterial Blood pCO2 at Patient Temp 34 mmHg (35-46) Arterial Blood pO2 at Patient Temp 374 mmHg (65-108) Arterial Blood HCO3 24 mmol/L (21-28) Arterial Blood Base Excess 1 mmol/L (-3-3) Oxyhemoglobin 97.9 % Methemoglobin 0.4 % (0.0-1.9) Carbon Monoxide, Quantitative 0.3 % (0.0-1.9) FiO2 100 White Blood Count 9.9 x10^3/uL (4.0-11.0) Red Blood Count 3.09 x10^6/uL (3.50-5.40) Hemoglobin 9.2 g/dL (12.0-15.5) Hematocrit 26.0 % (36.0-47.0) Mean Corpuscular Volume 84 fL (79-100) Mean Corpuscular Hemoglobin 30 pg (25-35) Mean Corpuscular Hemoglobin Concent 36 g/dL (31-37) Red Cell Distribution Width 14.9 % (11.5-14.5) Platelet Count 154 x10^3/uL (140-400) Prothrombin Time 16.3 SEC (11.7-14.0) Prothromb Time International Ratio 1.4 (0.8-1.1) Activated Partial Thromboplast Time 37 SEC (24-38) Sodium Level 142 mmol/L (136-145) Potassium Level 3.9 mmol/L (3.5-5.1) Chloride Level 104 mmol/L (98-107) Carbon Dioxide Level 26 mmol/L (21-32) Anion Gap 12 (6-14) Blood Urea Nitrogen 17 mg/dL (7-20) Creatinine 0.9 mg/dL (0.6-1.0) Estimated GFR (Cockcroft-Gault) 64.1 Glucose Level 103 mg/dL (70-99) Calcium Level 9.6 mg/dL (8.5-10.1) Magnesium Level 2.2 mg/dL (1.8-2.4) Glucose (Fingerstick) 114 mg/dL (70-99) 135 mg/dL (70-99) Test 09/09/16 18:14 09/09/16 19:15 09/09/16 19:29 09/09/16 19:30 Glucose (Fingerstick) 157 mg/dL (70-99) 185 mg/dL (70-99) Potassium Level 5.3 mmol/L (3.5-5.1) White Blood Count 13.8 x10^3/uL (4.0-11.0) Red Blood Count 2.62 x10^6/uL (3.50-5.40) Hemoglobin 7.8 g/dL (12.0-15.5) Hematocrit 22.5 % (36.0-47.0) Mean Corpuscular Volume 86 fL (79-100) Mean Corpuscular Hemoglobin 30 pg (25-35) Mean Corpuscular Hemoglobin Concent 35 g/dL (31-37) Red Cell Distribution Width 15.1 % (11.5-14.5) Platelet Count 146 x10^3/uL (140-400) Test 09/09/16 20:32 09/09/16 21:12 09/09/16 21:36 09/09/16 22:39 Glucose (Fingerstick) 159 mg/dL (70-99) 125 mg/dL (70-99) 110 mg/dL (70-99) O2 Saturation 97 % (92-99) Arterial Blood pH 7.36 (7.35-7.45) Arterial Blood pH (Temp corrected) 7.35 Arterial Blood pCO2 at Patient Temp 45 mmHg (35-46) Arterial Blood pCO2 (Temp correct) 47 mmHg Arterial Blood pO2 at Patient Temp 106 mmHg (65-108) Arterial Blood pO2 (Temp corrected) 114 mmHg Arterial Blood HCO3 25 mmol/L (21-28) Arterial Blood Base Excess -1 mmol/L (-3-3) FiO2 40 Test 09/09/16 23:43 09/10/16 00:46 09/10/16 01:48 09/10/16 02:50 Glucose (Fingerstick) 103 mg/dL (70-99) 119 mg/dL (70-99) 147 mg/dL (70-99) 157 mg/dL (70-99) Test 09/10/16 03:54 09/10/16 04:54 09/10/16 06:02 09/10/16 06:10 Glucose (Fingerstick) 167 mg/dL (70-99) 173 mg/dL (70-99) 180 mg/dL (70-99) White Blood Count 13.8 x10^3/uL (4.0-11.0) Red Blood Count 2.45 x10^6/uL (3.50-5.40) Hemoglobin 7.2 g/dL (12.0-15.5) Hematocrit 21.1 % (36.0-47.0) Mean Corpuscular Volume 86 fL (79-100) Mean Corpuscular Hemoglobin 30 pg (25-35) Mean Corpuscular Hemoglobin Concent 34 g/dL (31-37) Red Cell Distribution Width 15.2 % (11.5-14.5) Platelet Count 138 x10^3/uL (140-400) Prothrombin Time 15.3 SEC (11.7-14.0) Prothromb Time International Ratio 1.3 (0.8-1.1) Sodium Level 143 mmol/L (136-145) Potassium Level 5.1 mmol/L (3.5-5.1) Chloride Level 107 mmol/L (98-107) Carbon Dioxide Level 26 mmol/L (21-32) Anion Gap 10 (6-14) Blood Urea Nitrogen 23 mg/dL (7-20) Creatinine 1.4 mg/dL (0.6-1.0) Estimated GFR (Cockcroft-Gault) 38.5 Glucose Level 176 mg/dL (70-99) Calcium Level 9.2 mg/dL (8.5-10.1) Magnesium Level 2.2 mg/dL (1.8-2.4) Test 09/10/16 07:02 09/10/16 08:18 09/10/16 09:44 09/10/16 10:53 Glucose (Fingerstick) 152 mg/dL (70-99) 164 mg/dL (70-99) 124 mg/dL (70-99) 95 mg/dL (70-99) Test 09/10/16 12:02 09/10/16 13:14 09/10/16 14:25 09/10/16 15:30 Glucose (Fingerstick) 148 mg/dL (70-99) 115 mg/dL (70-99) 90 mg/dL (70-99) 105 mg/dL (70-99) Test 09/10/16 16:46 09/10/16 17:57 09/10/16 18:36 Glucose (Fingerstick) 155 mg/dL (70-99) 113 mg/dL (70-99) 189 mg/dL (70-99) Laboratory Tests Test 09/09/16 19:29 09/09/16 19:30 09/09/16 20:32 09/09/16 21:12 Glucose (Fingerstick) 185 mg/dL (70-99) 159 mg/dL (70-99) White Blood Count 13.8 x10^3/uL (4.0-11.0) Red Blood Count 2.62 x10^6/uL (3.50-5.40) Hemoglobin 7.8 g/dL (12.0-15.5) Hematocrit 22.5 % (36.0-47.0) Mean Corpuscular Volume 86 fL (79-100) Mean Corpuscular Hemoglobin 30 pg (25-35) Mean Corpuscular Hemoglobin Concent 35 g/dL (31-37) Red Cell Distribution Width 15.1 % (11.5-14.5) Platelet Count 146 x10^3/uL (140-400) O2 Saturation 97 % (92-99) Arterial Blood pH 7.36 (7.35-7.45) Arterial Blood pH (Temp corrected) 7.35 Arterial Blood pCO2 at Patient Temp 45 mmHg (35-46) Arterial Blood pCO2 (Temp correct) 47 mmHg Arterial Blood pO2 at Patient Temp 106 mmHg (65-108) Arterial Blood pO2 (Temp corrected) 114 mmHg Arterial Blood HCO3 25 mmol/L (21-28) Arterial Blood Base Excess -1 mmol/L (-3-3) FiO2 40 Test 09/09/16 21:36 09/09/16 22:39 09/09/16 23:43 09/10/16 00:46 Glucose (Fingerstick) 125 mg/dL (70-99) 110 mg/dL (70-99) 103 mg/dL (70-99) 119 mg/dL (70-99) Test 09/10/16 01:48 09/10/16 02:50 09/10/16 03:54 09/10/16 04:54 Glucose (Fingerstick) 147 mg/dL (70-99) 157 mg/dL (70-99) 167 mg/dL (70-99) 173 mg/dL (70-99) Test 09/10/16 06:02 09/10/16 06:10 09/10/16 07:02 09/10/16 08:18 Glucose (Fingerstick) 180 mg/dL (70-99) 152 mg/dL (70-99) 164 mg/dL (70-99) White Blood Count 13.8 x10^3/uL (4.0-11.0) Red Blood Count 2.45 x10^6/uL (3.50-5.40) Hemoglobin 7.2 g/dL (12.0-15.5) Hematocrit 21.1 % (36.0-47.0) Mean Corpuscular Volume 86 fL (79-100) Mean Corpuscular Hemoglobin 30 pg (25-35) Mean Corpuscular Hemoglobin Concent 34 g/dL (31-37) Red Cell Distribution Width 15.2 % (11.5-14.5) Platelet Count 138 x10^3/uL (140-400) Prothrombin Time 15.3 SEC (11.7-14.0) Prothromb Time International Ratio 1.3 (0.8-1.1) Sodium Level 143 mmol/L (136-145) Potassium Level 5.1 mmol/L (3.5-5.1) Chloride Level 107 mmol/L (98-107) Carbon Dioxide Level 26 mmol/L (21-32) Anion Gap 10 (6-14) Blood Urea Nitrogen 23 mg/dL (7-20) Creatinine 1.4 mg/dL (0.6-1.0) Estimated GFR (Cockcroft-Gault) 38.5 Glucose Level 176 mg/dL (70-99) Calcium Level 9.2 mg/dL (8.5-10.1) Magnesium Level 2.2 mg/dL (1.8-2.4) Test 09/10/16 09:44 09/10/16 10:53 09/10/16 12:02 09/10/16 13:14 Glucose (Fingerstick) 124 mg/dL (70-99) 95 mg/dL (70-99) 148 mg/dL (70-99) 115 mg/dL (70-99) Test 09/10/16 14:25 09/10/16 15:30 09/10/16 16:46 09/10/16 17:57 Glucose (Fingerstick) 90 mg/dL (70-99) 105 mg/dL (70-99) 155 mg/dL (70-99) 113 mg/dL (70-99) Test 09/10/16 18:36 Glucose (Fingerstick) 189 mg/dL (70-99) Medications Current Medications Ondansetron HCl (Zofran) 4 mg PRN Q6HRS PRN IV NAUSEA/VOMITING; Start 09/09/16 at 07:00; Stop 09/10/16 at 06:59; Status DC Fentanyl Citrate (Fentanyl 2ml Vial) 25 mcg PRN Q5MIN PRN IV MILD PAIN; Start 09/09/16 at 07:00; Stop 09/10/16 at 06:59; Status DC Fentanyl Citrate (Fentanyl 2ml Vial) 50 mcg PRN Q5MIN PRN IV MODERATE PAIN; Start 09/09/16 at 07:00; Stop 09/10/16 at 06:59; Status DC Ringer's Solution 1,000 ml @ 30 mls/hr Q24H IV Last administered on 09/09/16t 06:41; Start 09/09/16 at 07:00; Stop 09/09/16 at 18:59; Status DC Lidocaine HCl 2 ml PRN 1X PRN ID PRIOR TO IV START; Start 09/09/16 at 07:00; Stop 09/10/16 at 06:59; Status DC Prochlorperazine Edisylate (Compazine) 5 mg PACU PRN PRN IV NAUSEA, MRX1; Start 09/09/16 at 07:00; Stop 09/10/16 at 06:59; Status DC Potassium Chloride 70 meq/ Sodium Bicarbonate 12.5 meq/Lidocaine HCl 24 ml/ Parenteral Electrolytes 571.5 ml @ 571.5 mls/ hr 1X PERIOP ONCE IRR Last administered on 09/09/16 09:37; Start 09/09/16 at 06:00; Stop 09/09/16 at 06:59 ; Status DC Potassium Chloride 15 meq/ Sodium Bicarbonate 12.5 meq/Parenteral Electrolytes 520 ml @ 520 mls/hr 1X PERIOP ONCE IRR ; Start 09/09/16 at 06:00; Stop at 06:59; Status DC Heparin Sodium (Porcine) 86521 unit/Ringer's Solution 1,020 ml @ 1,020 mls/hr 1X PERIOP ONCE IRR Last administered on 09/09/16 09:11; Start 09/09/16 at 06: 00; Stop 09/09/16 at 06:59; Status DC Cefazolin Sodium/ Dextrose 50 ml @ 100 mls/hr 1X ONCE IV Last administered on 09/09/16 09:33; Start 09/09/16 at 06:00; Stop 09/09/16 at 06:29; Status DC Metoprolol Tartrate (Lopressor) 25 mg STK-MED ONCE .ROUTE ; Start 09/09/16 at 06 :19; Stop 09/09/16 at 06:20; Status DC Metoprolol Tartrate (Lopressor) 25 mg ONCE ONCE PO Last administered on 06:40; Start 09/09/16 at 06:45; Stop 09/09/16 at 06:46; Status DC Etomidate (Amidate) 20 mg STK-MED ONCE IV ; Start 09/09/16 at 06:53; Stop at 06:54; Status DC Phenylephrine HCl (Will-Synephrine Inj) 10 mg STK-MED ONCE .ROUTE ; Start at 06:53; Stop 09/09/16 at 06:54; Status DC Propofol 20 ml @ As Directed STK-MED ONCE IV ; Start 09/09/16 at 06:53; Stop at 06:54; Status DC Lidocaine HCl (Lidocaine Pf 2% Vial) 5 ml STK-MED ONCE .ROUTE ; Start 09/09/16 at 06:53; Stop 09/09/16 at 06:54; Status DC Aminocaproic Acid (Amicar) 5,000 mg STK-MED ONCE IV ; Start 09/09/16 at 06:53; Stop 09/09/16 at 06:54; Status DC Nitroglycerin/ Dextrose 0 ml @ As Directed STK-MED ONCE IV ; Start 09/09/16 at 06:53; Stop 09/09/16 at 06:54; Status DC Sufentanil Citrate (Sufenta) 250 mcg STK-MED ONCE .ROUTE ; Start 09/09/16 at 06: 53; Stop 09/09/16 at 06:54; Status DC Epinephrine HCl (Adrenalin) 1 mg STK-MED ONCE .ROUTE ; Start 09/09/16 at 06:54; Stop 09/09/16 at 06:55; Status DC Rocuronium [place] (Zemuron) 100 mg STK-MED ONCE .ROUTE ; Start 09/09/16 at 06: 54; Stop 09/09/16 at 06:55; Status DC Heparin Sodium (Porcine) 30,000 unit STK-MED ONCE .ROUTE ; Start 09/09/16 at 06: 55; Stop 09/09/16 at 06:56; Status DC Cellulose 1 each STK-MED ONCE .ROUTE Last administered on 09/09/16 09:11; Start 09/09/16 at 06:58; Stop 09/09/16 at 06:59; Status DC Papaverine HCl 60 mg STK-MED ONCE .ROUTE Last administered on 09/09/16 09:11; Start 09/09/16 at 06:58; Stop 09/09/16 at 06:59; Status DC Aspirin (Aspirin) 300 mg STK-MED ONCE .ROUTE Last administered on 09/09/16 14: 03; Start 09/09/16 at 06:58; Stop 09/09/16 at 06:59; Status DC Mineral Oil (Muri-Lube) 10 ml STK-MED ONCE MC Last administered on 09/09/16 12 :29; Start 09/09/16 at 06:58; Stop 09/09/16 at 06:59; Status DC Sodium Chloride (Sodium Chloride) 50 ml STK-MED ONCE IJ Last administered on 09:11; Start 09/09/16 at 06:58; Stop 09/09/16 at 06:59; Status DC Fentanyl Citrate (Fentanyl 5ml Vial) 250 mcg STK-MED ONCE .ROUTE ; Start at 07:02; Stop 09/09/16 at 07:03; Status DC Midazolam HCl (Versed) 5 mg STK-MED ONCE .ROUTE ; Start 09/09/16 at 07:08; Stop 09/09/16 at 07:09; Status DC Heparin Sodium (Porcine) 30,000 unit STK-MED ONCE .ROUTE ; Start 09/09/16 at 07: 15; Stop 09/09/16 at 07:16; Status DC Mannitol 500 ml @ 12.5 mls/hr 1X ONCE IV Last administered on 09/09/16 08:00 ; Start 09/09/16 at 08:00; Stop 09/10/16 at 23:59 Ephedrine Sulfate (Akovaz) 50 mg STK-MED ONCE .ROUTE ; Start 09/09/16 at 08:21; Stop 09/09/16 at 08:22; Status DC Norepinephrine Bitartrate 250 ml @ 0 mls/hr 1X ONCE IV Last administered on 08:30; Start 09/09/16 at 08:30; Stop 09/09/16 at 08:32; Status DC Milrinone Lactate/ Dextrose 100 ml @ 0 mls/hr 1X ONCE IV Last administered on 09/09/16 08:45; Start 09/09/16 at 08:45; Stop 09/09/16 at 08:46; Status DC Insulin Human Regular 150 unit/ Sodium Chloride 151.5 ml @ 0 mls/hr 1X ONCE IV Last administered on 09/09/16 15:35; Start 09/09/16 at 08:45; Stop at 08:46; Status DC Epinephrine HCl (Adrenalin) 30 mg STK-MED ONCE .ROUTE ; Start 09/09/16 at 09:34 ; Stop 09/09/16 at 09:35; Status DC Rocuronium [place] (Zemuron) 100 mg STK-MED ONCE .ROUTE ; Start 09/09/16 at 10: 30; Stop 09/09/16 at 10:31; Status DC Albumin Human 100 ml @ As Directed STK-MED ONCE IV ; Start 09/09/16 at 11:37; Stop 09/09/16 at 11:38; Status DC Albumin Human 100 ml @ As Directed STK-MED ONCE IV ; Start 09/09/16 at 11:37; Stop 09/09/16 at 11:38; Status DC Albumin Human 100 ml @ As Directed STK-MED ONCE IV ; Start 09/09/16 at 11:37; Stop 09/09/16 at 11:38; Status DC Albumin Human 100 ml @ As Directed STK-MED ONCE IV ; Start 09/09/16 at 11:37; Stop 09/09/16 at 11:38; Status DC Protamine Sulfate 50 mg STK-MED ONCE IV ; Start 09/09/16 at 13:09; Stop at 13:10; Status DC Lidocaine HCl (Xylocaine-Mpf 1% Vial) 5 ml STK-MED ONCE .ROUTE ; Start 09/09/16 at 13:13; Stop 09/09/16 at 13:14; Status DC Aminocaproic Acid (Amicar) 5,000 mg STK-MED ONCE IV ; Start 09/09/16 at 13:13; Stop 09/09/16 at 13:14; Status DC Magnesium Sulfate 5 gm STK-MED ONCE .ROUTE ; Start 09/09/16 at 13:13; Stop 09/09 at 13:14; Status DC Calcium Chloride 1,000 mg STK-MED ONCE IV ; Start 09/09/16 at 13:13; Stop at 13:14; Status DC Albumin Human 500 ml @ As Directed STK-MED ONCE IV ; Start 09/09/16 at 13:13; Stop 09/09/16 at 13:14; Status DC Heparin Sodium (Porcine) 30,000 unit STK-MED ONCE .ROUTE ; Start 09/09/16 at 13: 13; Stop 09/09/16 at 13:14; Status DC Sodium Chloride (Normal Saline Flush) 3 ml PRN Q12HR PRN IV AFTER MEDS AND BLOOD DRAWS; Start 09/09/16 at 13:00 Albumin Human 250 ml @ 60 mls/hr PRN Q4HRS PRN IV SEE I/O RECORD Last administered on 09/09/16t 19:13; Start 09/09/16 at 13:00 Insulin Human Regular 150 unit/ Sodium Chloride 151.5 ml @ 0 mls/hr CONT PRN PRN IV SEE I/O RECORD Last administered on 09/10/16 11:05; Start 09/09/16 at 13: 00 Dextrose (Dextrose 50%-Water Syringe) 25 gm PRN Q15MIN PRN IV LOW BLOOD SUGAR; Start 09/09/16 at 13:00 Amiodarone HCl (Cordarone) 400 mg BID PO Last administered on 09/10/16 07:50; Start 09/10/16 at 09:00; Stop 09/10/16 at 09:00; Status DC Info 1 ea CONT PRN PRN MC SEE COMMENTS; Start 09/09/16 at 13:00 Info 1 ea CONT PRN PRN MC SEE COMMENTS; Start 09/09/16 at 13:00 Magnesium Sulfate/ Dextrose 100 ml @ 100 mls/hr PRN DAILY PRN IV FOR MAG < 2.2 ; Start 09/09/16 at 13:00 Ondansetron HCl (Zofran) 4 mg PRN Q4HRS PRN IV NAUSEA/VOMITING; Start 09/09/16 at 13:00 Morphine Sulfate 2 mg PRN Q1HR PRN IV PAIN Last administered on 09/10/16 05:06 ; Start 09/09/16 at 13:00 Acetaminophen (Tylenol) 650 mg PRN Q4HRS PRN PO MILD PAIN / TEMP; Start at 13:00 Meperidine HCl (Demerol) 12.5 mg PRN Q15MIN PRN IV SHIVERING; Start 09/09/16 at 13:00; Stop 09/10/16 at 08:19; Status DC Propofol 100 ml @ 0 mls/hr CONT PRN PRN IV POSTOP SEDATION UNTIL EXTUBATE; Start 09/09/16 at 13:00; Stop 09/10/16 at 08:16; Status DC Senna/Docusate Sodium (Senna Plus) 1 tab BID PO Last administered on 09/10/16 07:50; Start 09/09/16 at 21:00 Bisacodyl (Dulcolax Supp) 10 mg PRN DAILY PRN FL NO BOWEL MOVEMENT; Start 09/09 at 13:00 Aspirin (Ecotrin) 325 mg DAILYWBKFT PO Last administered on 09/10/16 07:50; Start 09/10/16 at 08:00 Aspirin (Aspirin) 300 mg PRN DAILY PRN FL IF UNABLE TO TAKE PO; Start 09/09/16 at 13:00; Stop 09/10/16 at 08:18; Status DC Albuterol Sulfate (Ventolin Neb Soln) 2.5 mg PRN Q4HRS PRN NEB SHORTNESS OF BREATH; Start 09/09/16 at 13:00 Metoprolol Tartrate (Lopressor) 25 mg BID PO Last administered on 09/10/16 07: 50; Start 09/10/16 at 09:00; Stop 09/10/16 at 09:00; Status DC Clevidipine 100 ml @ 0 mls/hr CONT PRN IV PER PROTOCOL Last administered on 15:31; Start 09/09/16 at 13:00; Stop 09/10/16 at 08:16; Status DC Oxycodone/ Acetaminophen (Percocet 5/325) 1 tab PRN Q4HRS PRN PO MILD PAIN Last administered on 09/10/16 17:37; Start 09/09/16 at 13:00 Oxycodone/ Acetaminophen (Percocet 5/325) 2 tab PRN Q4HRS PRN PO MODERATE PAIN , SEVERE PAIN; Start 09/09/16 at 13:00 Cefazolin Sodium 1 gm/Sodium Chloride 50 ml @ 100 mls/hr Q8H IV ; Start at 15:00; Stop 09/09/16 at 15:00; Status DC Sodium Chloride 1,000 ml @ 0 mls/hr Q0M IV ; Start 09/09/16 at 13:00; Stop at 17:18; Status DC Famotidine (Pepcid) 20 mg QHS IVP Last administered on 09/09/16 21:29; Start 09/09/16 at 21:00 Protamine Sulfate 50 mg STK-MED ONCE IV ; Start 09/09/16 at 14:04; Stop at 14:05; Status DC Cefazolin Sodium 1 gm/Sodium Chloride 50 ml @ 100 mls/hr Q8H IV ; Start at 15:00; Stop 09/09/16 at 16:19; Status DC Isoflurane (Isoflurane) 90 ml STK-MED ONCE IH ; Start 09/09/16 at 14:08; Stop at 14:09; Status DC Epinephrine HCl (Adrenalin) 30 mg STK-MED ONCE .ROUTE ; Start 09/09/16 at 14:08 ; Stop 09/09/16 at 14:09; Status DC Epinephrine HCl 4 mg/Sodium Chloride 254 ml @ 0 mls/hr CONT PRN IV SEE I/O RECORD; Start 09/09/16 at 14:15; Stop 09/10/16 at 08:16; Status DC Milrinone Lactate/ Dextrose 100 ml @ 0 mls/hr CONT PRN IV SEE I/O RECORD Last administered on 09/09/16 19:42; Start 09/09/16 at 14:15; Stop 09/10/16 at 08:16 ; Status DC Nitroglycerin/ Dextrose 250 ml @ As Directed STK-MED ONCE IV ; Start 09/09/16 at 14:59; Stop 09/09/16 at 15:00; Status DC Nitroglycerin/ Dextrose 250 ml @ 0 mls/hr CONT PRN IV SEE I/O RECORD Last administered on 09/09/16 15:43; Start 09/09/16 at 15:45; Stop 09/10/16 at 08:16 ; Status DC Ringer's Solution 1,000 ml @ 30 mls/hr Q24H IV Last administered on 09/10/16 11:06; Start 09/09/16 at 15:45 Potassium Chloride 50 ml @ 50 mls/hr Q1H IV Last administered on 09/09/16 17: 32; Start 09/09/16 at 17:00; Stop 09/09/16 at 18:59; Status DC Cefazolin Sodium 1 gm/Sodium Chloride 50 ml @ 100 mls/hr Q8H IV Last administered on 09/10/16 13:19; Start 09/09/16 at 22:00; Stop 09/11/16 at 06:01 Amiodarone HCl (Cordarone) 200 mg BID PO ; Start 09/10/16 at 09:00 Metoprolol Tartrate (Lopressor) 12.5 mg BID PO ; Start 09/10/16 at 09:00 Metoprolol Tartrate (Lopressor) 12.5 mg BID PO ; Start 09/10/16 at 09:00; Status UNV Cefazolin Sodium/ Dextrose (Ancef 2gm Premix) 2 gm STK-MED ONCE IV ; Start 09/09 at 14:00; Stop 09/10/16 at 08:43; Status DC Active Scripts Active Xanax (Alprazolam) 0.5 Mg Tablet 1 Tab PO BID Novolog Flexpen (Insulin Aspart) 100 Unit/1 Ml Insuln.pen 5 Unit SQ TIDWMEALS 30 Days Levemir (Insulin Detemir) 100 Unit/1 Ml Vial 20 Unit SQ HS 30 Days Pantoprazole Sodium 40 Mg Tablet. 40 Mg PO DAILYAC 30 Days Reported Tylenol (Acetaminophen) 325 Mg Tablet 650 Mg PO PRN Q6HRS PRN Oxycodone Hcl 15 Mg Tablet 15 Mg PO PRN Q6HRS PRN Trazodone Hcl 50 Mg Tablet 100 Mg PO HS Chantix (Varenicline Tartrate) 1 Mg Tablet 1 Mg PO BID Cymbalta (Duloxetine Hcl) 60 Mg Capsule.dr 1 Cap PO BID Gabapentin 600 Mg Tablet 600 Mg PO TID Ambien (Zolpidem Tartrate) 10 Mg Tablet 1 Tab PO QHS NICODERM CQ 14mg (Nicotine) 1 Each Patch.td24 1 Patch TP DAILY Pentoxifylline 400 Mg Tablet.er 400 Mg PO BIDWMEALS Aspir-Low (Aspirin) 81 Mg Tablet. 1 Tab PO DAILY Voltaren (Diclofenac Sodium) 100 Gm Gel..gram. 1 Gm TP QID Vitals/I & O Vital Sign - Last 24 Hours 09/09/16 09/09/16 09/09/16 09/09/16 19:22 20:00 20:00 20:00 Temp 101.0 101.0 Pulse 83 Resp 15 B/P (MAP) 106/36 (59) Pulse Ox 100 100 O2 Delivery Ventilator Mechanical Ventilator Ventilator 09/09/16 09/09/16 09/09/16 09/09/16 21:00 21:00 22:00 22:00 Temp 100.8 100.3 100.8 100.3 Pulse 83 83 Resp 24 21 B/P (MAP) 119/38 (65) 114/35 (61) Pulse Ox 100 95 O2 Delivery Ventilator Nasal Cannula O2 Flow Rate 2.0 09/09/16 09/09/16 09/09/16 09/09/16 23:00 23:00 23:49 23:59 Temp 100.1 100.1 Pulse 86 86 Resp 24 30 B/P (MAP) 140/36 (70) Pulse Ox 97 97 O2 Delivery Nasal Cannula Nasal Cannula Nasal Cannula O2 Flow Rate 2.0 2.0 2.0 09/10/16 09/10/16 09/10/16 09/10/16 00:00 01:00 01:00 02:00 Temp 100.0 100.0 Pulse 86 87 Resp 22 B/P (MAP) 140/37 (71) 152/39 (76) 210/65 Pulse Ox 96 O2 Delivery Nasal Cannula O2 Flow Rate 2.0 09/10/16 09/10/16 09/10/16 09/10/16 02:00 02:00 02:04 02:05 Pulse 81 81 Resp 28 26 B/P (MAP) 151/42 (78) 198/60 Pulse Ox 100 95 O2 Delivery Nasal Cannula Nasal Cannula O2 Flow Rate 2.0 2.0 09/10/16 09/10/16 09/10/16 09/10/16 02:10 02:15 02:25 02:40 B/P (MAP) 172/58 153/40 135/40 141/38 09/10/16 09/10/16 09/10/16 09/10/16 02:45 02:49 02:50 03:00 Pulse 83 Resp 22 B/P (MAP) 135/45 116/36 132/40 (70) Pulse Ox 96 O2 Delivery Nasal Cannula O2 Flow Rate 2.0 09/10/16 09/10/16 09/10/16 09/10/16 03:00 03:04 03:50 04:00 Temp 99.4 99.4 Pulse 83 86 Resp 23 20 B/P (MAP) 183/54 159/53 (88) Pulse Ox 100 95 O2 Delivery Nasal Cannula Nasal Cannula O2 Flow Rate 2.0 2.0 09/10/16 09/10/16 09/10/16 09/10/16 04:00 04:00 05:00 05:00 Temp 99.1 99.0 99.1 99.0 Pulse 86 83 83 Resp 31 B/P (MAP) 114/39 (64) Pulse Ox 100 100 O2 Delivery Nasal Cannula Nasal Cannula Nasal Cannula O2 Flow Rate 2.0 2.0 2.0 8/1/17 09/10/16 09/10/16 09/10/16 05:06 05:30 06:00 06:00 Temp 98.8 98.8 Pulse 81 81 Resp 31 30 B/P (MAP) 141/41 144/41 (75) Pulse Ox 99 O2 Delivery Nasal Cannula O2 Flow Rate 2.0 09/10/16 09/10/16 09/10/16 09/10/16 06:10 07:00 07:00 07:49 Temp 98.8 98.8 Pulse 80 80 Resp 20 20 B/P (MAP) 139/44 153/46 (81) 128/58 (81) Pulse Ox 100 100 O2 Delivery Nasal Cannula Nasal Cannula O2 Flow Rate 2.0 2.0 09/10/16 09/10/16 09/10/16 09/10/16 07:50 07:50 08:00 08:00 Temp 98.9 98.9 Pulse 80 80 80 Resp 20 B/P (MAP) 153/51 153/51 Pulse Ox 100 O2 Delivery Nasal Cannula Nasal Cannula O2 Flow Rate 2.0 2.0 09/10/16 09/10/16 09/10/16 09/10/16 08:00 08:50 09:00 09:20 Temp 99.0 99.0 99.0 99.0 Pulse 80 80 82 Resp 20 20 B/P (MAP) 153/51 (85) 124/60 (81) 128/58 Pulse Ox 100 O2 Delivery Nasal Cannula O2 Flow Rate 2.0 2.0 09/10/16 09/10/16 09/10/16 09/10/16 09:40 10:00 10:51 11:00 Temp 99.0 99.0 98.0 99.0 99.0 98.0 Pulse 80 81 76 Resp 20 20 20 B/P (MAP) 140/67 141/67 (91) 134/59 (84) Pulse Ox 100 98 99 O2 Delivery Nasal Cannula Room Air O2 Flow Rate 2.0 09/10/16 09/10/16 09/10/16 09/10/16 11:07 12:00 12:00 13:00 Temp 98.2 98.2 Pulse 66 66 Resp 20 20 20 B/P (MAP) 98/43 (61) 109/53 (71) Pulse Ox 100 95 97 O2 Delivery Room Air Room Air Room Air 8/109/10/16 09/10/16 09/10/16 13:22 14:00 14:51 16:00 Pulse 66 68 Resp 20 20 20 B/P (MAP) 110/53 (72) 103/50 (67) Pulse Ox 97 97 96 O2 Delivery Room Air Room Air Room Air Room Air 09/10/16 09/10/16 09/10/16 09/10/16 16:00 17:00 17:37 18:00 Temp 98.4 98.4 Pulse 72 64 63 Resp 16 16 18 20 B/P (MAP) 120/56 (77) 124/53 (76) 130/55 (80) Pulse Ox 94 96 96 96 O2 Delivery Room Air Room Air Room Air Room Air 09/10/16 18:22 Resp 20 Pulse Ox 96 O2 Delivery Room Air Intake and Output 09/09/16 09/09/16 09/10/16 15:00 23:00 07:00 Intake Total 1366 ml 1809.8 ml Output Total 1668 ml 1065 ml Balance -302 ml 744.8 ml Nutrition Consultation Dietary Evaluation: Recommendations by RD: Dietary education by RD, Increase Calorie Intake, Protein supplementation Comments: Will attempt diet education at a later date added boost glucose control tid as po intake of meals minimal s/p surgery Expected Outcomes/Goals: to meet > 75% est nutr needs Malnutrition Findings: Body Fat Depletion (Non Severe: Mild Depletion Weight Status: Appropriate SAUNDRA FORTUNE MD Sep 10, 2016 19:21
[2016-09-10] MEDS: FAMOTIDINE 20 MG/2 ML VIAL IVP SCH (21:27)
[2016-09-11] VITALS (14 sets, daily range): BP systolic 106–169; BP diastolic 38–87
[2016-09-11] MEDS: oxyCODONE/APAP 5/325 1 TAB TABLET PO PRN ×4 (01:23→21:03)
[2016-09-11 05:56] LABS: HEMATOCRIT 25.5 % (36.0-47.0); HEMOGLOBIN 8.7 g/dL (12.0-15.5); RED BLOOD COUNT 2.87 x10^6/uL (3.50-5.40); RED CELL DISTRIBUTION WIDTH 15.5 % (11.5-14.5)
[2016-09-11 06:24] LABS: CALCIUM 8.9 mg/dL (8.5-10.1); CREATININE 1.3 mg/dL (0.6-1.0); GFR 41.9; POTASSIUM 4.2 mmol/L (3.5-5.1)
--- NOTE | 2016-09-11 07:55 | RAD ---
Portable chest, 09/11/2016: History: Postop, shortness of breath Comparison is made to a study from 09/10/2016. The [place] catheter and mediastinal drains have been removed. A right jugular vascular sheath and a right chest tube remain in place. The heart is enlarged. The pulmonary vascularity is better defined and is now within normal limits. Pleural thickening inferolaterally on the right has increased slightly over the last several days. The appearance suggests a small amount of pleural fluid superimposed upon pleural/parenchymal scarring. There is no evidence of pneumothorax. The left chest is clear. A proximal left humeral fracture is again noted. IMPRESSION: 1. Cardiomegaly without vascular congestion. 2. Small right pleural effusion superimposed upon basilar scarring.
[2016-09-11] MEDS: METOPROLOL TART IMMED RELEASE 25 MG TABLET. PO SCH ×2 (08:12→21:05)
[2016-09-11] MEDS: ASPIRIN ENTERIC COATED 325 MG TABLET.DR. PO SCH (08:12)
[2016-09-11] MEDS: AMIODARONE HCL 200 MG TABLET. PO SCH ×2 (08:12→21:04)
[2016-09-11] MEDS: SENNOSIDES/DOCUSATE 8.6/50MG TABLET. PO SCH ×2 (08:13→21:05)
--- NOTE | 2016-09-11 08:39 | PDOC ---
Provider Note Provider Note POD # 2 Pt awake, alert SR VSS wound sites ok off oxygen creat 1.3 cxr noted wires and pleural tube removed Plan: transfer to floor advance diet/activity DALTON GONZALES MD Sep 11, 2016 08:39
[2016-09-11] MEDS ORDERED: BENZOCAINE/MENTHOL LOZENGE. PO PRN (08:45)
[2016-09-11] MEDS ORDERED: MAGNESIUM HYDROXIDE 2,400 MG/30 ML ORAL.SUSP. PO PRN (08:45)
[2016-09-11] MEDS ORDERED: MAG HYDROX/ALUMINUM HYD/SIMETH 30 ML ORAL.SUSP PO PRN (08:45)
[2016-09-11] MEDS ORDERED: NITROGLYCERIN SUBLINGUAL 0.4 MG BOTTLE OF 25. SL PRN (08:45)
[2016-09-11] MEDS: NICOTINE 14MG PATCH. TD SCH (09:00)
--- NOTE | 2016-09-11 09:20 | PDOC ---
SUBJECTIVE Subjective up in chair, poor appetite, BS down off insulin drip now OBJECTIVE Vital Signs Vital Signs Date Time Temp Pulse Resp B/P (MAP) Pulse Ox O2 Delivery O2 Flow Rate FiO2 09/11/16 08:12 65 141/72 09/11/16 08:12 65 141/72 09/11/16 06:00 66 30 138/62 (87) 97 Room Air 09/11/16 05:00 65 28 140/62 (88) 96 Room Air 09/11/16 04:00 Room Air 09/11/16 04:00 98.2 68 27 138/65 (89) 95 98.2 09/11/16 03:00 66 26 165/75 (105) 96 Nasal Cannula 2.0 09/11/16 02:23 24 09/11/16 02:00 62 25 159/87 (111) 100 Nasal Cannula 2.0 09/11/16 01:23 30 Nasal Cannula 2.0 09/11/16 01:00 60 31 169/81 (110) 97 Nasal Cannula 2.0 09/11/16 00:00 98.1 61 27 159/79 (105) 100 Nasal Cannula 2.0 98.1 09/10/16 23:57 Room Air 09/10/16 23:00 65 29 154/69 (97) 100 Nasal Cannula 2.0 09/10/16 22:00 61 25 158/73 (101) 100 Nasal Cannula 2.0 09/10/16 21:32 63 138/65 09/10/16 21:28 25 09/10/16 21:27 63 138/65 09/10/16 21:00 63 29 138/65 (89) 96 Room Air 09/10/16 20:00 65 25 132/55 (80) 96 Room Air 09/10/16 20:00 Room Air 09/10/16 19:00 97.8 62 26 142/69 (93) 98 Room Air 97.8 09/10/16 18:22 96 Room Air 09/10/16 18:00 63 20 130/55 (80) 96 Room Air 09/10/16 17:37 18 96 Room Air 09/10/16 17:00 64 16 124/53 (76) 96 Room Air 09/10/16 16:00 98.4 72 16 120/56 (77) 94 Room Air 98.4 09/10/16 16:00 Room Air 09/10/16 14:51 68 20 103/50 (67) 96 Room Air 09/10/16 14:00 66 20 110/53 (72) 97 Room Air 09/10/16 13:22 20 97 Room Air 09/10/16 13:00 66 20 109/53 (71) 97 Room Air 09/10/16 12:00 98.2 66 20 98/43 (61) 95 Room Air 98.2 09/10/16 12:00 Room Air 09/10/16 11:07 20 100 09/10/16 11:00 98.0 76 20 134/59 (84) 99 Room Air 98.0 09/10/16 10:51 98 09/10/16 10:00 99.0 81 20 141/67 (91) 100 Nasal Cannula 2.0 99.0 09/10/16 09:40 99.0 80 20 140/67 99.0 I & O Intake and Output 09/11/16 07:00 Intake Total 1988 ml Output Total 1101 ml Balance 887 ml Intake Oral 710 ml IV Total 1228 ml Blood Product IV Normal Saline Flush 50 ml Output Urine Total 741 ml Chest Tube Drainage Total 360 ml PHYSICAL EXAM Physical Exam lungs clear upper lobes , decrease BS R base heart RRR abd soft ext no edema ASSESSMENT/PLAN Assessment/Plan 1- S/P CABG Day #2 2-ischemic cardiomyopathy 3- aortic stenosis 4. anemia expected post op , Hb better 5. Diabetes mellitus type 2, off drip not eating well will use lower dose levemir 6. Coronary artery disease. 7. Peripheral vascular disease, rather severe for her age. 8. Osteoarthritis 9. L humerous FX in July not healing Problems: COMMENT Lab Laboratory Tests Test 09/10/16 09:44 09/10/16 10:53 09/10/16 12:02 09/10/16 13:14 Glucose (Fingerstick) 124 mg/dL (70-99) 95 mg/dL (70-99) 148 mg/dL (70-99) 115 mg/dL (70-99) Test 09/10/16 14:25 09/10/16 15:30 09/10/16 16:46 09/10/16 17:57 Glucose (Fingerstick) 90 mg/dL (70-99) 105 mg/dL (70-99) 155 mg/dL (70-99) 113 mg/dL (70-99) Test 09/10/16 18:36 09/10/16 19:39 09/10/16 20:43 09/10/16 21:37 Glucose (Fingerstick) 189 mg/dL (70-99) 221 mg/dL (70-99) 244 mg/dL (70-99) 213 mg/dL (70-99) Test 09/10/16 22:45 09/10/16 23:47 09/11/16 00:48 09/11/16 01:52 Glucose (Fingerstick) 165 mg/dL (70-99) 151 mg/dL (70-99) 89 mg/dL (70-99) 53 mg/dL (70-99) Test 09/11/16 02:13 09/11/16 03:03 09/11/16 04:01 09/11/16 05:06 Glucose (Fingerstick) 166 mg/dL (70-99) 183 mg/dL (70-99) 143 mg/dL (70-99) 100 mg/dL (70-99) Test 09/11/16 05:30 09/11/16 06:09 09/11/16 06:30 09/11/16 06:50 White Blood Count 12.0 x10^3/uL (4.0-11.0) Red Blood Count 2.87 x10^6/uL (3.50-5.40) Hemoglobin 8.7 g/dL (12.0-15.5) Hematocrit 25.5 % (36.0-47.0) Mean Corpuscular Volume 89 fL (79-100) Mean Corpuscular Hemoglobin 31 pg (25-35) Mean Corpuscular Hemoglobin Concent 34 g/dL (31-37) Red Cell Distribution Width 15.5 % (11.5-14.5) Platelet Count 132 x10^3/uL (140-400) Sodium Level 142 mmol/L (136-145) Potassium Level 4.2 mmol/L (3.5-5.1) Chloride Level 107 mmol/L (98-107) Carbon Dioxide Level 28 mmol/L (21-32) Anion Gap 7 (6-14) Blood Urea Nitrogen 34 mg/dL (7-20) Creatinine 1.3 mg/dL (0.6-1.0) Estimated GFR (Cockcroft-Gault) 41.9 Glucose Level 83 mg/dL (70-99) Calcium Level 8.9 mg/dL (8.5-10.1) Glucose (Fingerstick) 62 mg/dL (70-99) 54 mg/dL (70-99) 122 mg/dL (70-99) Test 09/11/16 08:08 Glucose (Fingerstick) 182 mg/dL (70-99) JOSH GANT MD Sep 11, 2016 09:20
[2016-09-11] MEDS ORDERED: DEXTROSE 50% 25 GM / 50ML DISP.SYRIN. IV PRN (09:30)
[2016-09-11] MEDS ORDERED: INSULIN DETEMIR 300 UNITS/3 ML INSULN.PEN. SQ ONE (09:30)
--- NOTE | 2016-09-11 10:14 | RAD ---
Portable left humerus, 09/11/2016: History: Follow-up fracture Comparison is made to a study from 08/06/2016. The bony structures are demineralized. Again noted is a comminuted fracture of the proximal left humerus involving the humeral neck. There is moderate anterior and medial displacement of the major distal fracture fragment, which is probably unchanged when allowing for differences in patient rotation. There are increasing calcifications in the soft tissues at the fracture site. The appearance suggests a combination of callus and dystrophic soft tissue calcifications. Review of older radiographs from 04/03/2006 and 02/29/2016 reveals that there was an underlying pre-existing partially calcified lesion in the humeral neck, probably an enchondroma. IMPRESSION: Increasing callus and dystrophic soft tissue calcifications at the site of the moderately displaced pathologic fracture of the left humeral neck.
[2016-09-11] MEDS: FERROUS SULFATE 325 MG TABLET. PO SCH ×2 (10:18→17:29)
[2016-09-11] MEDS: PANTOPRAZOLE 40 MG TABLET.DR. PO SCH (10:18)
[2016-09-11] MEDS: DULoxetine HCL 30 MG CAPSULE.DR PO SCH ×2 (10:18→21:04)
[2016-09-11] MEDS: ALPRAZolam 0.5 MG TABLET PO SCH ×2 (10:18→21:05)
--- NOTE | 2016-09-11 11:11 | PDOC ---
PROGRESS NOTES Subjective Subjective 60 year old female CABG POD2 with left proximal humerus fracture for 1 month. Does not complain of any left shoulder pain at this time. Objective Vital Signs Vital Signs Date Time Temp Pulse Resp B/P (MAP) Pulse Ox O2 Delivery O2 Flow Rate FiO2 09/11/16 08:12 65 141/72 09/11/16 06:00 30 97 Room Air 09/11/16 04:00 98.2 98.2 09/11/16 03:00 2.0 Physical Exam Patient awake and sitting in chair but not completely coherent or responsive to questions. LUE DNVI. Able to flex and extend elbow, pronate supinate hand, extend all fingers and 5/5 strength squeeze with fingers. Labs Laboratory Tests Test 09/09/16 11:09 09/09/16 11:11 09/09/16 11:38 09/09/16 11:41 Bedside Hematocrit 27 % (36-40) 24 % (36-40) Bedside Venous pH 7.32 (7.32-7.42) Bedside Venous pCO2 44 mmHg (41-51) Bedside Venous pO2 37 mmHg (20-40) Bedside Venous HCO3 23 mmol/L (24-28) Bedside Venous Blood Total CO2 24 mmol/L (21-32) Bedside Venous Blood O2 Saturation 65 % Bedside Venous Blood Base Excess -3 mmol/L (0-3) POC Venous Hemoglobin (Calc) 9.2 g/dL (12-15) Bedside FiO2 100 100.0 Bedside Sodium 136 mmol/L (135-145) 137 mmol/L (135-145) Bedside Potassium 4.0 mmol/L (3.5-5.0) 4.3 mmol/L (3.5-5.0) Glucose Level 109 mg/dL (70-99) 78 mg/dL (70-99) Bedside Ionized Calcium (Brock) 1.03 mmol/L (1.13-1.32) 0.92 mmol/L (1.13-1.32) Activated Clotting Time 433 SEC (90-125) > 1000 SEC (90-125) Bedside Hemoglobin (Calculated) 8.2 g/dL (12-15) Bedside Arterial pH 7.42 (7.35-7.45) Bedside Arterial pCO2 44 mmHg (35-45) Bedside Arterial pO2 583 mmHg (75-100) Bedside Arterial HCO3 28 mmol/L (21-28) Bedside Arterial Total CO2 29 mmol/L (21-32) Arterial Bld O2 Saturation (Measur) 100 % (95-99) Bedside Arterial Blood Base Excess 4 mmol/L (0-3) Test 09/09/16 12:14 09/09/16 12:16 09/09/16 12:38 09/09/16 12:41 Bedside Hemoglobin (Calculated) 6.5 g/dL (12-15) 6.1 g/dL (12-15) Bedside Hematocrit 19 % (36-40) 18 % (36-40) Bedside Arterial pH 7.44 (7.35-7.45) 7.44 (7.35-7.45) Bedside Arterial pCO2 43 mmHg (35-45) 45 mmHg (35-45) Bedside Arterial pO2 540 mmHg (75-100) 559 mmHg (75-100) Bedside Arterial HCO3 29 mmol/L (21-28) 31 mmol/L (21-28) Bedside Arterial Total CO2 31 mmol/L (21-32) 32 mmol/L (21-32) Arterial Bld O2 Saturation (Measur) 100 % (95-99) 100 % (95-99) Bedside Arterial Blood Base Excess 5 mmol/L (0-3) 7 mmol/L (0-3) Bedside FiO2 100.0 100.0 Bedside Sodium 136 mmol/L (135-145) 135 mmol/L (135-145) Bedside Potassium 4.9 mmol/L (3.5-5.0) 4.4 mmol/L (3.5-5.0) Glucose Level 63 mg/dL (70-99) 109 mg/dL (70-99) Bedside Ionized Calcium (Brock) 0.97 mmol/L (1.13-1.32) 1.74 mmol/L (1.13-1.32) Activated Clotting Time > 1000 SEC (90-125) 786 SEC (90-125) Test 09/09/16 13:10 09/09/16 13:13 09/09/16 13:25 09/09/16 13:29 Bedside Hemoglobin (Calculated) 5.4 g/dL (12-15) 6.8 g/dL (12-15) Bedside Hematocrit 16 % (36-40) 20 % (36-40) Bedside Arterial pH 7.39 (7.35-7.45) 7.37 (7.35-7.45) Bedside Arterial pCO2 47 mmHg (35-45) 51 mmHg (35-45) Bedside Arterial pO2 400 mmHg (75-100) 449 mmHg (75-100) Bedside Arterial HCO3 29 mmol/L (21-28) 30 mmol/L (21-28) Bedside Arterial Total CO2 30 mmol/L (21-32) 31 mmol/L (21-32) Arterial Bld O2 Saturation (Measur) 100 % (95-99) 100 % (95-99) Bedside Arterial Blood Base Excess 4 mmol/L (0-3) 4 mmol/L (0-3) Bedside FiO2 100.0 100.0 Bedside Sodium 138 mmol/L (135-145) 137 mmol/L (135-145) Bedside Potassium 3.9 mmol/L (3.5-5.0) 4.1 mmol/L (3.5-5.0) Glucose Level 112 mg/dL (70-99) 113 mg/dL (70-99) Bedside Ionized Calcium (Brock) 1.24 mmol/L (1.13-1.32) 1.42 mmol/L (1.13-1.32) Activated Clotting Time 176 SEC (90-125) White Blood Count 7.1 x10^3/uL (4.0-11.0) Hemoglobin 5.1 g/dL (12.0-15.5) Hematocrit 13.9 % (36.0-47.0) Platelet Count 86 x10^3/uL (140-400) Prothrombin Time 22.7 SEC (11.7-14.0) Prothromb Time International Ratio 2.2 (0.8-1.1) Activated Partial Thromboplast Time 58 SEC (24-38) Fibrinogen 111 mg/dL (200-440) Test 09/09/16 13:31 09/09/16 14:53 09/09/16 15:00 09/09/16 15:15 Activated Clotting Time 151 SEC (90-125) Glucose (Fingerstick) 110 mg/dL (70-99) O2 Saturation 99 % (92-99) Arterial Blood pH 7.47 (7.35-7.45) Arterial Blood pCO2 at Patient Temp 34 mmHg (35-46) Arterial Blood pO2 at Patient Temp 374 mmHg (65-108) Arterial Blood HCO3 24 mmol/L (21-28) Arterial Blood Base Excess 1 mmol/L (-3-3) Oxyhemoglobin 97.9 % Methemoglobin 0.4 % (0.0-1.9) Carbon Monoxide, Quantitative 0.3 % (0.0-1.9) FiO2 100 White Blood Count 9.9 x10^3/uL (4.0-11.0) Red Blood Count 3.09 x10^6/uL (3.50-5.40) Hemoglobin 9.2 g/dL (12.0-15.5) Hematocrit 26.0 % (36.0-47.0) Mean Corpuscular Volume 84 fL (79-100) Mean Corpuscular Hemoglobin 30 pg (25-35) Mean Corpuscular Hemoglobin Concent 36 g/dL (31-37) Red Cell Distribution Width 14.9 % (11.5-14.5) Platelet Count 154 x10^3/uL (140-400) Prothrombin Time 16.3 SEC (11.7-14.0) Prothromb Time International Ratio 1.4 (0.8-1.1) Activated Partial Thromboplast Time 37 SEC (24-38) Sodium Level 142 mmol/L (136-145) Potassium Level 3.9 mmol/L (3.5-5.1) Chloride Level 104 mmol/L (98-107) Carbon Dioxide Level 26 mmol/L (21-32) Anion Gap 12 (6-14) Blood Urea Nitrogen 17 mg/dL (7-20) Creatinine 0.9 mg/dL (0.6-1.0) Estimated GFR (Cockcroft-Gault) 64.1 Glucose Level 103 mg/dL (70-99) Calcium Level 9.6 mg/dL (8.5-10.1) Magnesium Level 2.2 mg/dL (1.8-2.4) Test 09/09/16 16:05 09/09/16 17:09 09/09/16 18:14 09/09/16 19:15 Glucose (Fingerstick) 114 mg/dL (70-99) 135 mg/dL (70-99) 157 mg/dL (70-99) Potassium Level 5.3 mmol/L (3.5-5.1) Test 09/09/16 19:29 09/09/16 19:30 09/09/16 20:32 09/09/16 21:12 Glucose (Fingerstick) 185 mg/dL (70-99) 159 mg/dL (70-99) White Blood Count 13.8 x10^3/uL (4.0-11.0) Red Blood Count 2.62 x10^6/uL (3.50-5.40) Hemoglobin 7.8 g/dL (12.0-15.5) Hematocrit 22.5 % (36.0-47.0) Mean Corpuscular Volume 86 fL (79-100) Mean Corpuscular Hemoglobin 30 pg (25-35) Mean Corpuscular Hemoglobin Concent 35 g/dL (31-37) Red Cell Distribution Width 15.1 % (11.5-14.5) Platelet Count 146 x10^3/uL (140-400) O2 Saturation 97 % (92-99) Arterial Blood pH 7.36 (7.35-7.45) Arterial Blood pH (Temp corrected) 7.35 Arterial Blood pCO2 at Patient Temp 45 mmHg (35-46) Arterial Blood pCO2 (Temp correct) 47 mmHg Arterial Blood pO2 at Patient Temp 106 mmHg (65-108) Arterial Blood pO2 (Temp corrected) 114 mmHg Arterial Blood HCO3 25 mmol/L (21-28) Arterial Blood Base Excess -1 mmol/L (-3-3) FiO2 40 Test 09/09/16 21:36 09/09/16 22:39 09/09/16 23:43 09/10/16 00:46 Glucose (Fingerstick) 125 mg/dL (70-99) 110 mg/dL (70-99) 103 mg/dL (70-99) 119 mg/dL (70-99) Test 09/10/16 01:48 09/10/16 02:50 09/10/16 03:54 09/10/16 04:54 Glucose (Fingerstick) 147 mg/dL (70-99) 157 mg/dL (70-99) 167 mg/dL (70-99) 173 mg/dL (70-99) Test 09/10/16 06:02 09/10/16 06:10 09/10/16 07:02 09/10/16 08:18 Glucose (Fingerstick) 180 mg/dL (70-99) 152 mg/dL (70-99) 164 mg/dL (70-99) White Blood Count 13.8 x10^3/uL (4.0-11.0) Red Blood Count 2.45 x10^6/uL (3.50-5.40) Hemoglobin 7.2 g/dL (12.0-15.5) Hematocrit 21.1 % (36.0-47.0) Mean Corpuscular Volume 86 fL (79-100) Mean Corpuscular Hemoglobin 30 pg (25-35) Mean Corpuscular Hemoglobin Concent 34 g/dL (31-37) Red Cell Distribution Width 15.2 % (11.5-14.5) Platelet Count 138 x10^3/uL (140-400) Prothrombin Time 15.3 SEC (11.7-14.0) Prothromb Time International Ratio 1.3 (0.8-1.1) Sodium Level 143 mmol/L (136-145) Potassium Level 5.1 mmol/L (3.5-5.1) Chloride Level 107 mmol/L (98-107) Carbon Dioxide Level 26 mmol/L (21-32) Anion Gap 10 (6-14) Blood Urea Nitrogen 23 mg/dL (7-20) Creatinine 1.4 mg/dL (0.6-1.0) Estimated GFR (Cockcroft-Gault) 38.5 Glucose Level 176 mg/dL (70-99) Calcium Level 9.2 mg/dL (8.5-10.1) Magnesium Level 2.2 mg/dL (1.8-2.4) Test 09/10/16 09:44 09/10/16 10:53 09/10/16 12:02 09/10/16 13:14 Glucose (Fingerstick) 124 mg/dL (70-99) 95 mg/dL (70-99) 148 mg/dL (70-99) 115 mg/dL (70-99) Test 09/10/16 14:25 09/10/16 15:30 09/10/16 16:46 09/10/16 17:57 Glucose (Fingerstick) 90 mg/dL (70-99) 105 mg/dL (70-99) 155 mg/dL (70-99) 113 mg/dL (70-99) Test 09/10/16 18:36 09/10/16 19:39 09/10/16 20:43 09/10/16 21:37 Glucose (Fingerstick) 189 mg/dL (70-99) 221 mg/dL (70-99) 244 mg/dL (70-99) 213 mg/dL (70-99) Test 09/10/16 22:45 09/10/16 23:47 09/11/16 00:48 09/11/16 01:52 Glucose (Fingerstick) 165 mg/dL (70-99) 151 mg/dL (70-99) 89 mg/dL (70-99) 53 mg/dL (70-99) Test 09/11/16 02:13 09/11/16 03:03 09/11/16 04:01 09/11/16 05:06 Glucose (Fingerstick) 166 mg/dL (70-99) 183 mg/dL (70-99) 143 mg/dL (70-99) 100 mg/dL (70-99) Test 09/11/16 05:30 09/11/16 06:09 09/11/16 06:30 09/11/16 06:50 White Blood Count 12.0 x10^3/uL (4.0-11.0) Red Blood Count 2.87 x10^6/uL (3.50-5.40) Hemoglobin 8.7 g/dL (12.0-15.5) Hematocrit 25.5 % (36.0-47.0) Mean Corpuscular Volume 89 fL (79-100) Mean Corpuscular Hemoglobin 31 pg (25-35) Mean Corpuscular Hemoglobin Concent 34 g/dL (31-37) Red Cell Distribution Width 15.5 % (11.5-14.5) Platelet Count 132 x10^3/uL (140-400) Sodium Level 142 mmol/L (136-145) Potassium Level 4.2 mmol/L (3.5-5.1) Chloride Level 107 mmol/L (98-107) Carbon Dioxide Level 28 mmol/L (21-32) Anion Gap 7 (6-14) Blood Urea Nitrogen 34 mg/dL (7-20) Creatinine 1.3 mg/dL (0.6-1.0) Estimated GFR (Cockcroft-Gault) 41.9 Glucose Level 83 mg/dL (70-99) Calcium Level 8.9 mg/dL (8.5-10.1) Glucose (Fingerstick) 62 mg/dL (70-99) 54 mg/dL (70-99) 122 mg/dL (70-99) Test 09/11/16 08:08 09/11/16 09:36 Glucose (Fingerstick) 182 mg/dL (70-99) 180 mg/dL (70-99) Laboratory Tests Test 09/10/16 12:02 09/10/16 13:14 09/10/16 14:25 09/10/16 15:30 Glucose (Fingerstick) 148 mg/dL (70-99) 115 mg/dL (70-99) 90 mg/dL (70-99) 105 mg/dL (70-99) Test 09/10/16 16:46 09/10/16 17:57 09/10/16 18:36 09/10/16 19:39 Glucose (Fingerstick) 155 mg/dL (70-99) 113 mg/dL (70-99) 189 mg/dL (70-99) 221 mg/dL (70-99) Test 09/10/16 20:43 09/10/16 21:37 09/10/16 22:45 09/10/16 23:47 Glucose (Fingerstick) 244 mg/dL (70-99) 213 mg/dL (70-99) 165 mg/dL (70-99) 151 mg/dL (70-99) Test 09/11/16 00:48 09/11/16 01:52 09/11/16 02:13 09/11/16 03:03 Glucose (Fingerstick) 89 mg/dL (70-99) 53 mg/dL (70-99) 166 mg/dL (70-99) 183 mg/dL (70-99) Test 09/11/16 04:01 09/11/16 05:06 09/11/16 05:30 09/11/16 06:09 Glucose (Fingerstick) 143 mg/dL (70-99) 100 mg/dL (70-99) 62 mg/dL (70-99) White Blood Count 12.0 x10^3/uL (4.0-11.0) Red Blood Count 2.87 x10^6/uL (3.50-5.40) Hemoglobin 8.7 g/dL (12.0-15.5) Hematocrit 25.5 % (36.0-47.0) Mean Corpuscular Volume 89 fL (79-100) Mean Corpuscular Hemoglobin 31 pg (25-35) Mean Corpuscular Hemoglobin Concent 34 g/dL (31-37) Red Cell Distribution Width 15.5 % (11.5-14.5) Platelet Count 132 x10^3/uL (140-400) Sodium Level 142 mmol/L (136-145) Potassium Level 4.2 mmol/L (3.5-5.1) Chloride Level 107 mmol/L (98-107) Carbon Dioxide Level 28 mmol/L (21-32) Anion Gap 7 (6-14) Blood Urea Nitrogen 34 mg/dL (7-20) Creatinine 1.3 mg/dL (0.6-1.0) Estimated GFR (Cockcroft-Gault) 41.9 Glucose Level 83 mg/dL (70-99) Calcium Level 8.9 mg/dL (8.5-10.1) Test 09/11/16 06:30 09/11/16 06:50 09/11/16 08:08 09/11/16 09:36 Glucose (Fingerstick) 54 mg/dL (70-99) 122 mg/dL (70-99) 182 mg/dL (70-99) 180 mg/dL (70-99) Imaging Left proximal humerus fracture with minimal change in position since previous plain films 08/16/16 in clinic with increased callus formation around fracture. Assessment Assessment Left Proximal Humerus Fracture with routine healing Problems: (1) Closed fracture of left proximal humerus Plan Plan of Care Discussed patient with Dr Pinto and will start nonoperative proximal humerus fx therapy protocol at this time starting with early passive ROM. Order placed to PT/OT and discussed face to face. Paper therapy order given to nursing staff for scheduling with therapy at next location with case management. Patient currently scheduled to follow up in clinic on 18 Sep 2016, in one week. PT/OT: JANA COLE, therapy per order. Continue sling when up and about and when sleeping. May come out of sling when sitting comfortably, doing therapy or when bathing. Pain: appears well controlled at this time. DVT Prophylaxis: early and regular ambulation Problem Qualifiers (1) Closed fracture of left proximal humerus: Encounter type: subsequent encounter Fracture healing: with routine healing [facility] Sep 11, 2016 11:11
[2016-09-11] MEDS: INSULIN ASPART 300 UNITS/3 ML INSULN.PEN SQ SCH ×2 (12:37→17:46)
[2016-09-11] MEDS: IV RINGERS,LACTATED 1000ML 1,000 ML IV SCH (17:30)
--- NOTE | 2016-09-11 19:53 | PDOC ---
PROGRESS NOTES Subjective Subjective Not too many words mild confusion. Objective Objective Vital Signs Date Time Temp Pulse Resp B/P (MAP) Pulse Ox O2 Delivery O2 Flow Rate FiO2 09/11/16 19:43 64 155/71 (99) 09/11/16 19:14 98.5 16 94 Room Air 98.5 09/11/16 13:39 2.0 Intake and Output 09/11/16 07:00 Intake Total 1988 ml Output Total 1101 ml Balance 887 ml Intake Oral 710 ml IV Total 1228 ml Blood Product IV Normal Saline Flush 50 ml Output Urine Total 741 ml Chest Tube Drainage Total 360 ml Physical Exam Physical Exam No significant changes in cardiac exam Assessment Assessment Pt improving. Agree with present plan and to transfer out of ICU. Comment Review of Relevant I have reviewed the following items sarahy (where applicable) has been applied. Labs Laboratory Tests Test 09/09/16 20:32 09/09/16 21:12 09/09/16 21:36 09/09/16 22:39 Glucose (Fingerstick) 159 mg/dL (70-99) 125 mg/dL (70-99) 110 mg/dL (70-99) O2 Saturation 97 % (92-99) Arterial Blood pH 7.36 (7.35-7.45) Arterial Blood pH (Temp corrected) 7.35 Arterial Blood pCO2 at Patient Temp 45 mmHg (35-46) Arterial Blood pCO2 (Temp correct) 47 mmHg Arterial Blood pO2 at Patient Temp 106 mmHg (65-108) Arterial Blood pO2 (Temp corrected) 114 mmHg Arterial Blood HCO3 25 mmol/L (21-28) Arterial Blood Base Excess -1 mmol/L (-3-3) FiO2 40 Test 09/09/16 23:43 09/10/16 00:46 09/10/16 01:48 09/10/16 02:50 Glucose (Fingerstick) 103 mg/dL (70-99) 119 mg/dL (70-99) 147 mg/dL (70-99) 157 mg/dL (70-99) Test 09/10/16 03:54 09/10/16 04:54 09/10/16 06:02 09/10/16 06:10 Glucose (Fingerstick) 167 mg/dL (70-99) 173 mg/dL (70-99) 180 mg/dL (70-99) White Blood Count 13.8 x10^3/uL (4.0-11.0) Red Blood Count 2.45 x10^6/uL (3.50-5.40) Hemoglobin 7.2 g/dL (12.0-15.5) Hematocrit 21.1 % (36.0-47.0) Mean Corpuscular Volume 86 fL (79-100) Mean Corpuscular Hemoglobin 30 pg (25-35) Mean Corpuscular Hemoglobin Concent 34 g/dL (31-37) Red Cell Distribution Width 15.2 % (11.5-14.5) Platelet Count 138 x10^3/uL (140-400) Prothrombin Time 15.3 SEC (11.7-14.0) Prothromb Time International Ratio 1.3 (0.8-1.1) Sodium Level 143 mmol/L (136-145) Potassium Level 5.1 mmol/L (3.5-5.1) Chloride Level 107 mmol/L (98-107) Carbon Dioxide Level 26 mmol/L (21-32) Anion Gap 10 (6-14) Blood Urea Nitrogen 23 mg/dL (7-20) Creatinine 1.4 mg/dL (0.6-1.0) Estimated GFR (Cockcroft-Gault) 38.5 Glucose Level 176 mg/dL (70-99) Calcium Level 9.2 mg/dL (8.5-10.1) Magnesium Level 2.2 mg/dL (1.8-2.4) Test 09/10/16 07:02 09/10/16 08:18 09/10/16 09:44 09/10/16 10:53 Glucose (Fingerstick) 152 mg/dL (70-99) 164 mg/dL (70-99) 124 mg/dL (70-99) 95 mg/dL (70-99) Test 09/10/16 12:02 09/10/16 13:14 09/10/16 14:25 09/10/16 15:30 Glucose (Fingerstick) 148 mg/dL (70-99) 115 mg/dL (70-99) 90 mg/dL (70-99) 105 mg/dL (70-99) Test 09/10/16 16:46 09/10/16 17:57 09/10/16 18:36 09/10/16 19:39 Glucose (Fingerstick) 155 mg/dL (70-99) 113 mg/dL (70-99) 189 mg/dL (70-99) 221 mg/dL (70-99) Test 09/10/16 20:43 09/10/16 21:37 09/10/16 22:45 09/10/16 23:47 Glucose (Fingerstick) 244 mg/dL (70-99) 213 mg/dL (70-99) 165 mg/dL (70-99) 151 mg/dL (70-99) Test 09/11/16 00:48 09/11/16 01:52 09/11/16 02:13 09/11/16 03:03 Glucose (Fingerstick) 89 mg/dL (70-99) 53 mg/dL (70-99) 166 mg/dL (70-99) 183 mg/dL (70-99) Test 09/11/16 04:01 09/11/16 05:06 09/11/16 05:30 09/11/16 06:09 Glucose (Fingerstick) 143 mg/dL (70-99) 100 mg/dL (70-99) 62 mg/dL (70-99) White Blood Count 12.0 x10^3/uL (4.0-11.0) Red Blood Count 2.87 x10^6/uL (3.50-5.40) Hemoglobin 8.7 g/dL (12.0-15.5) Hematocrit 25.5 % (36.0-47.0) Mean Corpuscular Volume 89 fL (79-100) Mean Corpuscular Hemoglobin 31 pg (25-35) Mean Corpuscular Hemoglobin Concent 34 g/dL (31-37) Red Cell Distribution Width 15.5 % (11.5-14.5) Platelet Count 132 x10^3/uL (140-400) Sodium Level 142 mmol/L (136-145) Potassium Level 4.2 mmol/L (3.5-5.1) Chloride Level 107 mmol/L (98-107) Carbon Dioxide Level 28 mmol/L (21-32) Anion Gap 7 (6-14) Blood Urea Nitrogen 34 mg/dL (7-20) Creatinine 1.3 mg/dL (0.6-1.0) Estimated GFR (Cockcroft-Gault) 41.9 Glucose Level 83 mg/dL (70-99) Calcium Level 8.9 mg/dL (8.5-10.1) Test 09/11/16 06:30 09/11/16 06:50 09/11/16 08:08 09/11/16 09:36 Glucose (Fingerstick) 54 mg/dL (70-99) 122 mg/dL (70-99) 182 mg/dL (70-99) 180 mg/dL (70-99) Test 09/11/16 17:18 Glucose (Fingerstick) 234 mg/dL (70-99) Laboratory Tests Test 09/10/16 20:43 09/10/16 21:37 09/10/16 22:45 09/10/16 23:47 Glucose (Fingerstick) 244 mg/dL (70-99) 213 mg/dL (70-99) 165 mg/dL (70-99) 151 mg/dL (70-99) Test 09/11/16 00:48 09/11/16 01:52 09/11/16 02:13 09/11/16 03:03 Glucose (Fingerstick) 89 mg/dL (70-99) 53 mg/dL (70-99) 166 mg/dL (70-99) 183 mg/dL (70-99) Test 09/11/16 04:01 09/11/16 05:06 09/11/16 05:30 09/11/16 06:09 Glucose (Fingerstick) 143 mg/dL (70-99) 100 mg/dL (70-99) 62 mg/dL (70-99) White Blood Count 12.0 x10^3/uL (4.0-11.0) Red Blood Count 2.87 x10^6/uL (3.50-5.40) Hemoglobin 8.7 g/dL (12.0-15.5) Hematocrit 25.5 % (36.0-47.0) Mean Corpuscular Volume 89 fL (79-100) Mean Corpuscular Hemoglobin 31 pg (25-35) Mean Corpuscular Hemoglobin Concent 34 g/dL (31-37) Red Cell Distribution Width 15.5 % (11.5-14.5) Platelet Count 132 x10^3/uL (140-400) Sodium Level 142 mmol/L (136-145) Potassium Level 4.2 mmol/L (3.5-5.1) Chloride Level 107 mmol/L (98-107) Carbon Dioxide Level 28 mmol/L (21-32) Anion Gap 7 (6-14) Blood Urea Nitrogen 34 mg/dL (7-20) Creatinine 1.3 mg/dL (0.6-1.0) Estimated GFR (Cockcroft-Gault) 41.9 Glucose Level 83 mg/dL (70-99) Calcium Level 8.9 mg/dL (8.5-10.1) Test 09/11/16 06:30 09/11/16 06:50 09/11/16 08:08 09/11/16 09:36 Glucose (Fingerstick) 54 mg/dL (70-99) 122 mg/dL (70-99) 182 mg/dL (70-99) 180 mg/dL (70-99) Test 09/11/16 17:18 Glucose (Fingerstick) 234 mg/dL (70-99) Medications Current Medications Ondansetron HCl (Zofran) 4 mg PRN Q6HRS PRN IV NAUSEA/VOMITING; Start 09/09/16 at 07:00; Stop 09/10/16 at 06:59; Status DC Fentanyl Citrate (Fentanyl 2ml Vial) 25 mcg PRN Q5MIN PRN IV MILD PAIN; Start 09/09/16 at 07:00; Stop 09/10/16 at 06:59; Status DC Fentanyl Citrate (Fentanyl 2ml Vial) 50 mcg PRN Q5MIN PRN IV MODERATE PAIN; Start 09/09/16 at 07:00; Stop 09/10/16 at 06:59; Status DC Ringer's Solution 1,000 ml @ 30 mls/hr Q24H IV Last administered on 09/09/16t 06:41; Start 09/09/16 at 07:00; Stop 09/09/16 at 18:59; Status DC Lidocaine HCl 2 ml PRN 1X PRN ID PRIOR TO IV START; Start 09/09/16 at 07:00; Stop 09/10/16 at 06:59; Status DC Prochlorperazine Edisylate (Compazine) 5 mg PACU PRN PRN IV NAUSEA, MRX1; Start 09/09/16 at 07:00; Stop 09/10/16 at 06:59; Status DC Potassium Chloride 70 meq/ Sodium Bicarbonate 12.5 meq/Lidocaine HCl 24 ml/ Parenteral Electrolytes 571.5 ml @ 571.5 mls/ hr 1X PERIOP ONCE IRR Last administered on 09/09/16 09:37; Start 09/09/16 at 06:00; Stop 09/09/16 at 06:59 ; Status DC Potassium Chloride 15 meq/ Sodium Bicarbonate 12.5 meq/Parenteral Electrolytes 520 ml @ 520 mls/hr 1X PERIOP ONCE IRR ; Start 09/09/16 at 06:00; Stop at 06:59; Status DC Heparin Sodium (Porcine) 15773 unit/Ringer's Solution 1,020 ml @ 1,020 mls/hr 1X PERIOP ONCE IRR Last administered on 09/09/16 09:11; Start 09/09/16 at 06: 00; Stop 09/09/16 at 06:59; Status DC Cefazolin Sodium/ Dextrose 50 ml @ 100 mls/hr 1X ONCE IV Last administered on 09/09/16 09:33; Start 09/09/16 at 06:00; Stop 09/09/16 at 06:29; Status DC Metoprolol Tartrate (Lopressor) 25 mg STK-MED ONCE .ROUTE ; Start 09/09/16 at 06 :19; Stop 09/09/16 at 06:20; Status DC Metoprolol Tartrate (Lopressor) 25 mg ONCE ONCE PO Last administered on 06:40; Start 09/09/16 at 06:45; Stop 09/09/16 at 06:46; Status DC Etomidate (Amidate) 20 mg STK-MED ONCE IV ; Start 09/09/16 at 06:53; Stop at 06:54; Status DC Phenylephrine HCl (Will-Synephrine Inj) 10 mg STK-MED ONCE .ROUTE ; Start at 06:53; Stop 09/09/16 at 06:54; Status DC Propofol 20 ml @ As Directed STK-MED ONCE IV ; Start 09/09/16 at 06:53; Stop at 06:54; Status DC Lidocaine HCl (Lidocaine Pf 2% Vial) 5 ml STK-MED ONCE .ROUTE ; Start 09/09/16 at 06:53; Stop 09/09/16 at 06:54; Status DC Aminocaproic Acid (Amicar) 5,000 mg STK-MED ONCE IV ; Start 09/09/16 at 06:53; Stop 09/09/16 at 06:54; Status DC Nitroglycerin/ Dextrose 0 ml @ As Directed STK-MED ONCE IV ; Start 09/09/16 at 06:53; Stop 09/09/16 at 06:54; Status DC Sufentanil Citrate (Sufenta) 250 mcg STK-MED ONCE .ROUTE ; Start 09/09/16 at 06: 53; Stop 09/09/16 at 06:54; Status DC Epinephrine HCl (Adrenalin) 1 mg STK-MED ONCE .ROUTE ; Start 09/09/16 at 06:54; Stop 09/09/16 at 06:55; Status DC Rocuronium [place] (Zemuron) 100 mg STK-MED ONCE .ROUTE ; Start 09/09/16 at 06: 54; Stop 09/09/16 at 06:55; Status DC Heparin Sodium (Porcine) 30,000 unit STK-MED ONCE .ROUTE ; Start 09/09/16 at 06: 55; Stop 09/09/16 at 06:56; Status DC Cellulose 1 each STK-MED ONCE .ROUTE Last administered on 09/09/16 09:11; Start 09/09/16 at 06:58; Stop 09/09/16 at 06:59; Status DC Papaverine HCl 60 mg STK-MED ONCE .ROUTE Last administered on 09/09/16 09:11; Start 09/09/16 at 06:58; Stop 09/09/16 at 06:59; Status DC Aspirin (Aspirin) 300 mg STK-MED ONCE .ROUTE Last administered on 09/09/16 14: 03; Start 09/09/16 at 06:58; Stop 09/09/16 at 06:59; Status DC Mineral Oil (Muri-Lube) 10 ml STK-MED ONCE MC Last administered on 09/09/16 12 :29; Start 09/09/16 at 06:58; Stop 09/09/16 at 06:59; Status DC Sodium Chloride (Sodium Chloride) 50 ml STK-MED ONCE IJ Last administered on 09:11; Start 09/09/16 at 06:58; Stop 09/09/16 at 06:59; Status DC Fentanyl Citrate (Fentanyl 5ml Vial) 250 mcg STK-MED ONCE .ROUTE ; Start at 07:02; Stop 09/09/16 at 07:03; Status DC Midazolam HCl (Versed) 5 mg STK-MED ONCE .ROUTE ; Start 09/09/16 at 07:08; Stop 09/09/16 at 07:09; Status DC Heparin Sodium (Porcine) 30,000 unit STK-MED ONCE .ROUTE ; Start 09/09/16 at 07: 15; Stop 09/09/16 at 07:16; Status DC Mannitol 500 ml @ 12.5 mls/hr 1X ONCE IV Last administered on 09/09/16 08:00 ; Start 09/09/16 at 08:00; Stop 09/10/16 at 23:59; Status DC Ephedrine Sulfate (Akovaz) 50 mg STK-MED ONCE .ROUTE ; Start 09/09/16 at 08:21; Stop 09/09/16 at 08:22; Status DC Norepinephrine Bitartrate 250 ml @ 0 mls/hr 1X ONCE IV Last administered on 08:30; Start 09/09/16 at 08:30; Stop 09/09/16 at 08:32; Status DC Milrinone Lactate/ Dextrose 100 ml @ 0 mls/hr 1X ONCE IV Last administered on 09/09/16 08:45; Start 09/09/16 at 08:45; Stop 09/09/16 at 08:46; Status DC Insulin Human Regular 150 unit/ Sodium Chloride 151.5 ml @ 0 mls/hr 1X ONCE IV Last administered on 09/09/16 15:35; Start 09/09/16 at 08:45; Stop at 08:46; Status DC Epinephrine HCl (Adrenalin) 30 mg STK-MED ONCE .ROUTE ; Start 09/09/16 at 09:34 ; Stop 09/09/16 at 09:35; Status DC Rocuronium [place] (Zemuron) 100 mg STK-MED ONCE .ROUTE ; Start 09/09/16 at 10: 30; Stop 09/09/16 at 10:31; Status DC Albumin Human 100 ml @ As Directed STK-MED ONCE IV ; Start 09/09/16 at 11:37; Stop 09/09/16 at 11:38; Status DC Albumin Human 100 ml @ As Directed STK-MED ONCE IV ; Start 09/09/16 at 11:37; Stop 09/09/16 at 11:38; Status DC Albumin Human 100 ml @ As Directed STK-MED ONCE IV ; Start 09/09/16 at 11:37; Stop 09/09/16 at 11:38; Status DC Albumin Human 100 ml @ As Directed STK-MED ONCE IV ; Start 09/09/16 at 11:37; Stop 09/09/16 at 11:38; Status DC Protamine Sulfate 50 mg STK-MED ONCE IV ; Start 09/09/16 at 13:09; Stop at 13:10; Status DC Lidocaine HCl (Xylocaine-Mpf 1% Vial) 5 ml STK-MED ONCE .ROUTE ; Start 09/09/16 at 13:13; Stop 09/09/16 at 13:14; Status DC Aminocaproic Acid (Amicar) 5,000 mg STK-MED ONCE IV ; Start 09/09/16 at 13:13; Stop 09/09/16 at 13:14; Status DC Magnesium Sulfate 5 gm STK-MED ONCE .ROUTE ; Start 09/09/16 at 13:13; Stop 09/09 at 13:14; Status DC Calcium Chloride 1,000 mg STK-MED ONCE IV ; Start 09/09/16 at 13:13; Stop at 13:14; Status DC Albumin Human 500 ml @ As Directed STK-MED ONCE IV ; Start 09/09/16 at 13:13; Stop 09/09/16 at 13:14; Status DC Heparin Sodium (Porcine) 30,000 unit STK-MED ONCE .ROUTE ; Start 09/09/16 at 13: 13; Stop 09/09/16 at 13:14; Status DC Sodium Chloride (Normal Saline Flush) 3 ml PRN Q12HR PRN IV AFTER MEDS AND BLOOD DRAWS; Start 09/09/16 at 13:00 Albumin Human 250 ml @ 60 mls/hr PRN Q4HRS PRN IV SEE I/O RECORD Last administered on 09/09/16t 19:13; Start 09/09/16 at 13:00 Insulin Human Regular 150 unit/ Sodium Chloride 151.5 ml @ 0 mls/hr CONT PRN PRN IV SEE I/O RECORD Last administered on 09/10/16 11:05; Start 09/09/16 at 13: 00; Stop 09/11/16 at 08:41; Status DC Dextrose (Dextrose 50%-Water Syringe) 25 gm PRN Q15MIN PRN IV LOW BLOOD SUGAR; Start 09/09/16 at 13:00 Amiodarone HCl (Cordarone) 400 mg BID PO Last administered on 09/10/16 07:50; Start 09/10/16 at 09:00; Stop 09/10/16 at 09:00; Status DC Info 1 ea CONT PRN PRN MC SEE COMMENTS; Start 09/09/16 at 13:00 Info 1 ea CONT PRN PRN MC SEE COMMENTS; Start 09/09/16 at 13:00 Magnesium Sulfate/ Dextrose 100 ml @ 100 mls/hr PRN DAILY PRN IV FOR MAG < 2.2 ; Start 09/09/16 at 13:00 Ondansetron HCl (Zofran) 4 mg PRN Q4HRS PRN IV NAUSEA/VOMITING; Start 09/09/16 at 13:00 Morphine Sulfate 2 mg PRN Q1HR PRN IV PAIN Last administered on 09/10/16 05:06 ; Start 09/09/16 at 13:00 Acetaminophen (Tylenol) 650 mg PRN Q4HRS PRN PO MILD PAIN / TEMP; Start at 13:00 Meperidine HCl (Demerol) 12.5 mg PRN Q15MIN PRN IV SHIVERING; Start 09/09/16 at 13:00; Stop 09/10/16 at 08:19; Status DC Propofol 100 ml @ 0 mls/hr CONT PRN PRN IV POSTOP SEDATION UNTIL EXTUBATE; Start 09/09/16 at 13:00; Stop 09/10/16 at 08:16; Status DC Senna/Docusate Sodium (Senna Plus) 1 tab BID PO Last administered on 09/11/16 08:13; Start 09/09/16 at 21:00 Bisacodyl (Dulcolax Supp) 10 mg PRN DAILY PRN AK NO BOWEL MOVEMENT; Start 09/09 at 13:00 Aspirin (Ecotrin) 325 mg DAILYWBKFT PO Last administered on 09/11/16 08:12; Start 09/10/16 at 08:00 Aspirin (Aspirin) 300 mg PRN DAILY PRN AK IF UNABLE TO TAKE PO; Start 09/09/16 at 13:00; Stop 09/10/16 at 08:18; Status DC Albuterol Sulfate (Ventolin Neb Soln) 2.5 mg PRN Q4HRS PRN NEB SHORTNESS OF BREATH; Start 09/09/16 at 13:00 Metoprolol Tartrate (Lopressor) 25 mg BID PO Last administered on 09/10/16 07: 50; Start 09/10/16 at 09:00; Stop 09/10/16 at 09:00; Status DC Clevidipine 100 ml @ 0 mls/hr CONT PRN IV PER PROTOCOL Last administered on 15:31; Start 09/09/16 at 13:00; Stop 09/10/16 at 08:16; Status DC Oxycodone/ Acetaminophen (Percocet 5/325) 1 tab PRN Q4HRS PRN PO MILD PAIN Last administered on 09/11/16 12:29; Start 09/09/16 at 13:00 Oxycodone/ Acetaminophen (Percocet 5/325) 2 tab PRN Q4HRS PRN PO MODERATE PAIN , SEVERE PAIN; Start 09/09/16 at 13:00 Cefazolin Sodium 1 gm/Sodium Chloride 50 ml @ 100 mls/hr Q8H IV ; Start at 15:00; Stop 09/09/16 at 15:00; Status DC Sodium Chloride 1,000 ml @ 0 mls/hr Q0M IV ; Start 09/09/16 at 13:00; Stop at 17:18; Status DC Famotidine (Pepcid) 20 mg QHS IVP Last administered on 09/10/16 21:27; Start at 21:00 Protamine Sulfate 50 mg STK-MED ONCE IV ; Start 09/09/16 at 14:04; Stop at 14:05; Status DC Cefazolin Sodium 1 gm/Sodium Chloride 50 ml @ 100 mls/hr Q8H IV ; Start at 15:00; Stop 09/09/16 at 16:19; Status DC Isoflurane (Isoflurane) 90 ml STK-MED ONCE IH ; Start 09/09/16 at 14:08; Stop at 14:09; Status DC Epinephrine HCl (Adrenalin) 30 mg STK-MED ONCE .ROUTE ; Start 09/09/16 at 14:08 ; Stop 09/09/16 at 14:09; Status DC Epinephrine HCl 4 mg/Sodium Chloride 254 ml @ 0 mls/hr CONT PRN IV SEE I/O RECORD; Start 09/09/16 at 14:15; Stop 09/10/16 at 08:16; Status DC Milrinone Lactate/ Dextrose 100 ml @ 0 mls/hr CONT PRN IV SEE I/O RECORD Last administered on 09/09/16 19:42; Start 09/09/16 at 14:15; Stop 09/10/16 at 08:16 ; Status DC Nitroglycerin/ Dextrose 250 ml @ As Directed STK-MED ONCE IV ; Start 09/09/16 at 14:59; Stop 09/09/16 at 15:00; Status DC Nitroglycerin/ Dextrose 250 ml @ 0 mls/hr CONT PRN IV SEE I/O RECORD Last administered on 09/09/16 15:43; Start 09/09/16 at 15:45; Stop 09/10/16 at 08:16 ; Status DC Ringer's Solution 1,000 ml @ 30 mls/hr Q24H IV Last administered on 09/11/16 17:30; Start 09/09/16 at 15:45 Potassium Chloride 50 ml @ 50 mls/hr Q1H IV Last administered on 09/09/16 17: 32; Start 09/09/16 at 17:00; Stop 09/09/16 at 18:59; Status DC Cefazolin Sodium 1 gm/Sodium Chloride 50 ml @ 100 mls/hr Q8H IV Last administered on 09/11/16 05:25; Start 09/09/16 at 22:00; Stop 09/11/16 at 06:01; Status DC Amiodarone HCl (Cordarone) 200 mg BID PO Last administered on 09/11/16 08:12; Start 09/10/16 at 09:00 Metoprolol Tartrate (Lopressor) 12.5 mg BID PO Last administered on 09/11/16 08 :12; Start 09/10/16 at 09:00 Metoprolol Tartrate (Lopressor) 12.5 mg BID PO ; Start 09/10/16 at 09:00; Status UNV Cefazolin Sodium/ Dextrose (Ancef 2gm Premix) 2 gm STK-MED ONCE IV ; Start 09/09 at 14:00; Stop 09/10/16 at 08:43; Status DC Ferrous Sulfate (Feosol) 325 mg BIDWMEALS PO Last administered on 09/11/16 17: 29; Start 09/11/16 at 09:00 Throat Lozenges (Cepacol Sore Throat Lozenge) 1 al PRN Q2HRS PRN PO SORE THROAT; Start 09/11/16 at 08:45 Al Hydroxide/Mg Hydroxide (Mylanta Plus Xs) 30 ml PRN Q4HRS PRN PO HEARTBURN / GAS; Start 09/11/16 at 08:45 Magnesium Hydroxide (Milk Of Magnesia) 2,400 mg PRN DAILY PRN PO CONSTIPATION; Start 09/11/16 at 08:45 Nitroglycerin (Nitrostat) 0.4 mg PRN Q5MIN PRN SL CHEST PAIN; Start 09/11/16 at 08:45 Alprazolam (Xanax) 0.5 mg BID PO Last administered on 09/11/16 10:18; Start 09/11/16 at 09:00 Nicotine (Nicoderm Cq 14mg) 1 patch DAILY TD Last administered on 09/11/16 09: 00; Start 09/11/16 at 09:00 Pantoprazole Sodium (Protonix) 40 mg DAILYAC PO Last administered on 09/11/16 10:18; Start 09/11/16 at 09:00 Trazodone HCl (Desyrel) 100 mg HS PO ; Start 09/11/16 at 21:00 Duloxetine HCl (Cymbalta) 60 mg BID PO Last administered on 09/11/16 10:18; Start 09/11/16 at 09:00 Insulin Detemir (Levemir) 10 units QHS SQ ; Start 09/11/16 at 21:00 Insulin Aspart (NovoLOG) 0-5 UNITS TIDWMEALS SQ Last administered on 09/11/16 17:46; Start 09/11/16 at 12:00 Dextrose (Dextrose 50%-Water Syringe) 12.5 gm PRN Q15MIN PRN IV SEE COMMENTS; Start 09/11/16 at 09:30 Insulin Detemir (Levemir) 4 units ONCE ONCE SQ Last administered on 09/11/16 10:19; Start 09/11/16 at 09:30; Stop 09/11/16 at 09:42; Status DC Active Scripts Active Xanax (Alprazolam) 0.5 Mg Tablet 1 Tab PO BID Novolog Flexpen (Insulin Aspart) 100 Unit/1 Ml Insuln.pen 5 Unit SQ TIDWMEALS 30 Days Levemir (Insulin Detemir) 100 Unit/1 Ml Vial 20 Unit SQ HS 30 Days Pantoprazole Sodium 40 Mg Tablet. 40 Mg PO DAILYAC 30 Days Reported Tylenol (Acetaminophen) 325 Mg Tablet 650 Mg PO PRN Q6HRS PRN Oxycodone Hcl 15 Mg Tablet 15 Mg PO PRN Q6HRS PRN Trazodone Hcl 50 Mg Tablet 100 Mg PO HS Chantix (Varenicline Tartrate) 1 Mg Tablet 1 Mg PO BID Cymbalta (Duloxetine Hcl) 60 Mg Capsule. 1 Cap PO BID Gabapentin 600 Mg Tablet 600 Mg PO TID Ambien (Zolpidem Tartrate) 10 Mg Tablet 1 Tab PO QHS NICODERM CQ 14mg (Nicotine) 1 Each Patch.td24 1 Patch TP DAILY Pentoxifylline 400 Mg Tablet.er 400 Mg PO BIDWMEALS Aspir-Low (Aspirin) 81 Mg Tablet.dr 1 Tab PO DAILY Voltaren (Diclofenac Sodium) 100 Gm Gel..gram. 1 Gm TP QID Vitals/I & O Vital Sign - Last 24 Hours 09/10/16 09/10/16 09/10/16 09/10/16 20:00 20:00 21:00 21:27 Pulse 65 63 63 Resp 25 29 B/P (MAP) 132/55 (80) 138/65 (89) 138/65 Pulse Ox 96 96 O2 Delivery Room Air Room Air Room Air 09/10/16 09/10/16 09/10/16 09/10/16 21:28 21:32 22:00 23:00 Pulse 63 61 65 Resp 25 25 29 B/P (MAP) 138/65 158/73 (101) 154/69 (97) Pulse Ox 100 100 O2 Delivery Nasal Cannula Nasal Cannula O2 Flow Rate 2.0 2.0 09/10/16 09/11/16 09/11/16 09/11/16 23:57 00:00 01:00 01:23 Temp 98.1 98.1 Pulse 61 60 Resp 27 31 30 B/P (MAP) 159/79 (105) 169/81 (110) Pulse Ox 100 97 O2 Delivery Room Air Nasal Cannula Nasal Cannula Nasal Cannula O2 Flow Rate 2.0 2.0 2.0 09/11/16 09/11/16 09/11/16 09/11/16 02:00 02:23 03:00 04:00 Temp 98.2 98.2 Pulse 62 66 68 Resp 25 24 26 27 B/P (MAP) 159/87 (111) 165/75 (105) 138/65 (89) Pulse Ox 100 96 95 O2 Delivery Nasal Cannula Nasal Cannula O2 Flow Rate 2.0 2.0 09/11/16 09/11/16 09/11/16 09/11/16 04:00 05:00 06:00 07:00 Pulse 65 66 63 Resp 28 30 28 B/P (MAP) 140/62 (88) 138/62 (87) 158/64 (95) Pulse Ox 96 97 95 O2 Delivery Room Air Room Air Room Air Room Air 09/11/16 09/11/16 09/11/16 09/11/16 08:00 08:00 08:12 08:12 Temp 97.9 97.9 Pulse 64 65 65 Resp 26 B/P (MAP) 141/72 (95) 141/72 141/72 Pulse Ox 95 O2 Delivery Room Air Room Air 09/11/16 09/11/16 09/11/16 09/11/16 12:00 12:29 13:39 16:00 Temp 98.6 98.6 98.6 98.6 Pulse 66 64 Resp 20 17 B/P (MAP) 118/55 (76) 106/57 (73) Pulse Ox 96 95 95 96 O2 Delivery Room Air Room Air Room Air Room Air O2 Flow Rate 2.0 2.0 09/11/16 09/11/16 19:14 19:43 Temp 98.5 98.5 Pulse 66 64 Resp 16 B/P (MAP) 138/38 (71) 155/71 (99) Pulse Ox 94 O2 Delivery Room Air Intake and Output 09/10/16 09/10/16 09/11/16 15:00 23:00 07:00 Intake Total 575 ml 671 ml 742 ml Output Total 490 ml 327 ml 284 ml Balance 85 ml 344 ml 458 ml Nutrition Consultation Dietary Evaluation: Recommendations by RD: Dietary education by RD, Increase Calorie Intake, Protein supplementation Comments: Diet education 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
[2016-09-11] MEDS ORDERED: INSULIN DETEMIR 300 UNITS/3 ML INSULN.PEN. SQ SCH (21:00)
[2016-09-11] MEDS: FAMOTIDINE 20 MG/2 ML VIAL IVP SCH (21:03)
[2016-09-11] MEDS: traZODone 100 MG TABLET. PO SCH (21:05)
[2016-09-12] MEDS: oxyCODONE/APAP 5/325 1 TAB TABLET PO PRN ×2 (03:40→21:20)
[2016-09-12 03:50] VITALS: BP 144/63
[2016-09-12 04:28] LABS: HEMATOCRIT 24.7 % (36.0-47.0); HEMOGLOBIN 8.2 g/dL (12.0-15.5); RED BLOOD COUNT 2.72 x10^6/uL (3.50-5.40); WHITE BLOOD COUNT 11.6 x10^3/uL (4.0-11.0)
[2016-09-12 05:32] LABS: CALCIUM 8.9 mg/dL (8.5-10.1); CREATININE 1.2 mg/dL (0.6-1.0)
[2016-09-12 07:51] VITALS: BP 146/70
[2016-09-12] MEDS: INSULIN ASPART 300 UNITS/3 ML INSULN.PEN SQ SCH ×3 (08:00→17:18)
[2016-09-12] MEDS: ASPIRIN ENTERIC COATED 325 MG TABLET.DR. PO SCH (09:09)
[2016-09-12] MEDS: PANTOPRAZOLE 40 MG TABLET.DR. PO SCH (09:09)
[2016-09-12] MEDS: METOPROLOL TART IMMED RELEASE 25 MG TABLET. PO SCH ×2 (09:09→21:22)
[2016-09-12] MEDS: DULoxetine HCL 30 MG CAPSULE.DR PO SCH ×2 (09:09→21:19)
[2016-09-12] MEDS: FERROUS SULFATE 325 MG TABLET. PO SCH ×2 (09:09→17:11)
[2016-09-12] MEDS: SENNOSIDES/DOCUSATE 8.6/50MG TABLET. PO SCH ×2 (09:10→21:20)
[2016-09-12] MEDS: AMIODARONE HCL 200 MG TABLET. PO SCH ×2 (09:10→21:21)
[2016-09-12] MEDS: NICOTINE 14MG PATCH. TD SCH (09:10)
[2016-09-12] MEDS: ALPRAZolam 0.5 MG TABLET PO SCH ×2 (09:10→21:19)
--- NOTE | 2016-09-12 10:30 | PDOC ---
PROGRESS NOTES Subjective Subjective Patient is speaking more today. States everything is a "bliss". She states she is having a little shoulder pain but has not yet started her shoulder therapy. Otherwise she says she is able to get up and ambulate ok on her own. Objective Vital Signs Vital Signs Date Time Temp Pulse Resp B/P (MAP) Pulse Ox O2 Delivery O2 Flow Rate FiO2 09/12/16 09:10 68 146/70 09/12/16 08:25 Room Air 2.0 09/12/16 07:51 97.9 18 95 97.9 Physical Exam Patient more verbal today, but requiring a lot of time to answer and having difficulty conveying her thoughts. Left arm in sling in what she states is a comfortable position. LUE DNVI intact. Labs Laboratory Tests Test 09/10/16 10:53 09/10/16 12:02 09/10/16 13:14 09/10/16 14:25 Glucose (Fingerstick) 95 mg/dL (70-99) 148 mg/dL (70-99) 115 mg/dL (70-99) 90 mg/dL (70-99) Test 09/10/16 15:30 09/10/16 16:46 09/10/16 17:57 09/10/16 18:36 Glucose (Fingerstick) 105 mg/dL (70-99) 155 mg/dL (70-99) 113 mg/dL (70-99) 189 mg/dL (70-99) Test 09/10/16 19:39 09/10/16 20:43 09/10/16 21:37 09/10/16 22:45 Glucose (Fingerstick) 221 mg/dL (70-99) 244 mg/dL (70-99) 213 mg/dL (70-99) 165 mg/dL (70-99) Test 09/10/16 23:47 09/11/16 00:48 09/11/16 01:52 09/11/16 02:13 Glucose (Fingerstick) 151 mg/dL (70-99) 89 mg/dL (70-99) 53 mg/dL (70-99) 166 mg/dL (70-99) Test 09/11/16 03:03 09/11/16 04:01 09/11/16 05:06 09/11/16 05:30 Glucose (Fingerstick) 183 mg/dL (70-99) 143 mg/dL (70-99) 100 mg/dL (70-99) White Blood Count 12.0 x10^3/uL (4.0-11.0) Red Blood Count 2.87 x10^6/uL (3.50-5.40) Hemoglobin 8.7 g/dL (12.0-15.5) Hematocrit 25.5 % (36.0-47.0) Mean Corpuscular Volume 89 fL (79-100) Mean Corpuscular Hemoglobin 31 pg (25-35) Mean Corpuscular Hemoglobin Concent 34 g/dL (31-37) Red Cell Distribution Width 15.5 % (11.5-14.5) Platelet Count 132 x10^3/uL (140-400) Sodium Level 142 mmol/L (136-145) Potassium Level 4.2 mmol/L (3.5-5.1) Chloride Level 107 mmol/L (98-107) Carbon Dioxide Level 28 mmol/L (21-32) Anion Gap 7 (6-14) Blood Urea Nitrogen 34 mg/dL (7-20) Creatinine 1.3 mg/dL (0.6-1.0) Estimated GFR (Cockcroft-Gault) 41.9 Glucose Level 83 mg/dL (70-99) Calcium Level 8.9 mg/dL (8.5-10.1) Test 09/11/16 06:09 09/11/16 06:30 09/11/16 06:50 09/11/16 08:08 Glucose (Fingerstick) 62 mg/dL (70-99) 54 mg/dL (70-99) 122 mg/dL (70-99) 182 mg/dL (70-99) Test 09/11/16 09:36 09/11/16 12:30 09/11/16 17:18 09/11/16 20:54 Glucose (Fingerstick) 180 mg/dL (70-99) 307 mg/dL (70-99) 234 mg/dL (70-99) 185 mg/dL (70-99) Test 09/12/16 03:30 09/12/16 07:52 White Blood Count 11.6 x10^3/uL (4.0-11.0) Red Blood Count 2.72 x10^6/uL (3.50-5.40) Hemoglobin 8.2 g/dL (12.0-15.5) Hematocrit 24.7 % (36.0-47.0) Mean Corpuscular Volume 91 fL (79-100) Mean Corpuscular Hemoglobin 30 pg (25-35) Mean Corpuscular Hemoglobin Concent 33 g/dL (31-37) Red Cell Distribution Width 16.0 % (11.5-14.5) Platelet Count 129 x10^3/uL (140-400) Sodium Level 139 mmol/L (136-145) Potassium Level 4.0 mmol/L (3.5-5.1) Chloride Level 103 mmol/L (98-107) Carbon Dioxide Level 27 mmol/L (21-32) Anion Gap 9 (6-14) Blood Urea Nitrogen 31 mg/dL (7-20) Creatinine 1.2 mg/dL (0.6-1.0) Estimated GFR (Cockcroft-Gault) 46.0 Glucose Level 140 mg/dL (70-99) Calcium Level 8.9 mg/dL (8.5-10.1) Glucose (Fingerstick) 88 mg/dL (70-99) Laboratory Tests Test 09/11/16 12:30 09/11/16 17:18 09/11/16 20:54 09/12/16 03:30 Glucose (Fingerstick) 307 mg/dL (70-99) 234 mg/dL (70-99) 185 mg/dL (70-99) White Blood Count 11.6 x10^3/uL (4.0-11.0) Red Blood Count 2.72 x10^6/uL (3.50-5.40) Hemoglobin 8.2 g/dL (12.0-15.5) Hematocrit 24.7 % (36.0-47.0) Mean Corpuscular Volume 91 fL (79-100) Mean Corpuscular Hemoglobin 30 pg (25-35) Mean Corpuscular Hemoglobin Concent 33 g/dL (31-37) Red Cell Distribution Width 16.0 % (11.5-14.5) Platelet Count 129 x10^3/uL (140-400) Sodium Level 139 mmol/L (136-145) Potassium Level 4.0 mmol/L (3.5-5.1) Chloride Level 103 mmol/L (98-107) Carbon Dioxide Level 27 mmol/L (21-32) Anion Gap 9 (6-14) Blood Urea Nitrogen 31 mg/dL (7-20) Creatinine 1.2 mg/dL (0.6-1.0) Estimated GFR (Cockcroft-Gault) 46.0 Glucose Level 140 mg/dL (70-99) Calcium Level 8.9 mg/dL (8.5-10.1) Test 09/12/16 07:52 Glucose (Fingerstick) 88 mg/dL (70-99) Assessment Assessment Left proximal humerus fracture. Problems: (1) Closed fracture of left proximal humerus Plan Plan of Care PHYSICAL THERAPY/OT: LUE Light passive RANGE OF MOTION exercises as described in order. LUE NON-WEIGHT BEARING. Continue sling when sleeping and when up and about. May come out of sling while sitting comfortably, doing exercises or bathing. Pain: Patient states there is some left shoulder pain, will start scheduled Acetaminophen today and reevaluate tomorrow after PHYSICAL THERAPY has started. DVT Prophylaxis: Continued early and regular ambulation. Problem Qualifiers (1) Closed fracture of left proximal humerus: Encounter type: subsequent encounter Fracture healing: with routine healing TRISTON OLIVAS PAC Sep 12, 2016 10:30
[2016-09-12 11:25] VITALS: BP 129/55
[2016-09-12] MEDS: ACETAMINOPHEN 325 MG TABLET. PO SCH ×2 (12:00→17:11)
--- NOTE | 2016-09-12 13:38 | PDOC ---
Progress Note Subjective Subjective Doing well. Off O2. Normotensive and in SR. No complaints, doesn't say much. Creat 1.2, Hb 8.2. R IJ cordis still in, very difficult peripheral iv access ROS ROS No nausea No vomiting No SOB No pain No rash Vital Sign Vital Signs Vital Signs Date Time Temp Pulse Resp B/P (MAP) Pulse Ox O2 Delivery O2 Flow Rate FiO2 09/12/16 11:25 98.0 68 18 129/55 (79) 96 Room Air 98.0 09/12/16 08:25 2.0 Physical Exam PHYSICAL EXAM GENERAL: NAD, Alert HEENT: PERRL, OC/OP NECK: Supple, no JVD, no LN LUNGS: Clear HEART: S1S2, no gallop, no murmur ABD: Soft, NT, no organomegaly, no rebound EXT: No edema, no cyanosis [employer]: Alert, oriented x 3, no focal neurologic deficit SKIN: No rash IV: ok Labs Lab Laboratory Tests Test 09/11/16 17:18 09/11/16 20:54 09/12/16 03:30 09/12/16 07:52 Glucose (Fingerstick) 234 mg/dL (70-99) 185 mg/dL (70-99) 88 mg/dL (70-99) White Blood Count 11.6 x10^3/uL (4.0-11.0) Red Blood Count 2.72 x10^6/uL (3.50-5.40) Hemoglobin 8.2 g/dL (12.0-15.5) Hematocrit 24.7 % (36.0-47.0) Mean Corpuscular Volume 91 fL (79-100) Mean Corpuscular Hemoglobin 30 pg (25-35) Mean Corpuscular Hemoglobin Concent 33 g/dL (31-37) Red Cell Distribution Width 16.0 % (11.5-14.5) Platelet Count 129 x10^3/uL (140-400) Sodium Level 139 mmol/L (136-145) Potassium Level 4.0 mmol/L (3.5-5.1) Chloride Level 103 mmol/L (98-107) Carbon Dioxide Level 27 mmol/L (21-32) Anion Gap 9 (6-14) Blood Urea Nitrogen 31 mg/dL (7-20) Creatinine 1.2 mg/dL (0.6-1.0) Estimated GFR (Cockcroft-Gault) 46.0 Glucose Level 140 mg/dL (70-99) Calcium Level 8.9 mg/dL (8.5-10.1) Test 09/12/16 11:25 Glucose (Fingerstick) 209 mg/dL (70-99) Objective Assessment POD#3, s/p CABG x 4 Doing well. Off O2. Normotensive and in SR. No complaints, doesn't say much. Creat 1.2, Hb 8.2 Plan Plan of Care ASA, b remy, statin Amiodarone for AFib prophylaxis Ambulation, increased activity Will keep cordis until discharge owing to very challenging peripheral iv access. Not safe to go home on her own. Working on placement, most likely on Friday CXR today. Not done after right pleural drain removal yesterday ORIANA DIAMOND MD Sep 12, 2016 13:38
[2016-09-12 14:14] VITALS: BP 116/56
--- NOTE | 2016-09-12 14:23 | PDOC ---
SUBJECTIVE Subjective more alert, cooperative , mood seems better, back on Cymbalta, pain controlled OBJECTIVE Vital Signs Vital Signs Date Time Temp Pulse Resp B/P (MAP) Pulse Ox O2 Delivery O2 Flow Rate FiO2 09/12/16 14:14 98.3 63 19 116/56 (76) 96 Room Air 98.3 09/12/16 11:25 98.0 68 18 129/55 (79) 96 Room Air 98.0 09/12/16 09:10 68 146/70 09/12/16 09:09 68 146/70 09/12/16 08:25 Room Air 2.0 09/12/16 07:51 97.9 68 18 146/70 (95) 95 Room Air 97.9 09/12/16 03:50 98.7 67 14 144/63 (90) 92 Room Air 98.7 09/11/16 23:24 98.8 66 18 166/69 (101) 93 Room Air 98.8 09/11/16 21:05 64 155/71 09/11/16 21:04 64 155/71 09/11/16 21:03 18 09/11/16 19:50 Room Air 2.0 09/11/16 19:43 64 155/71 (99) 09/11/16 19:14 98.5 66 16 138/38 (71) 94 Room Air 98.5 09/11/16 16:00 98.6 64 17 106/57 (73) 96 Room Air 98.6 I & O Intake and Output 09/12/16 07:00 Intake Total 650 ml Output Total 40 ml Balance 610 ml Intake Oral 650 ml Chest Tube Drainage Total 40 ml # Voids 4 PHYSICAL EXAM Physical Exam lungs fairly clear Heart RRR abd soft ext no edema ASSESSMENT/PLAN Assessment/Plan 1- S/P CABG Day #3 2-ischemic cardiomyopathy 3- aortic stenosis 4. anemia expected post op , Hb stable 5. Diabetes mellitus type 2, adjusting insulin 6. Coronary artery disease. 7. Peripheral vascular disease, rather severe for her age. 8. Osteoarthritis 9. L humerous FX in July not healing continue plans Problems: COMMENT Lab Laboratory Tests Test 09/11/16 17:18 09/11/16 20:54 09/12/16 03:30 09/12/16 07:52 Glucose (Fingerstick) 234 mg/dL (70-99) 185 mg/dL (70-99) 88 mg/dL (70-99) White Blood Count 11.6 x10^3/uL (4.0-11.0) Red Blood Count 2.72 x10^6/uL (3.50-5.40) Hemoglobin 8.2 g/dL (12.0-15.5) Hematocrit 24.7 % (36.0-47.0) Mean Corpuscular Volume 91 fL (79-100) Mean Corpuscular Hemoglobin 30 pg (25-35) Mean Corpuscular Hemoglobin Concent 33 g/dL (31-37) Red Cell Distribution Width 16.0 % (11.5-14.5) Platelet Count 129 x10^3/uL (140-400) Sodium Level 139 mmol/L (136-145) Potassium Level 4.0 mmol/L (3.5-5.1) Chloride Level 103 mmol/L (98-107) Carbon Dioxide Level 27 mmol/L (21-32) Anion Gap 9 (6-14) Blood Urea Nitrogen 31 mg/dL (7-20) Creatinine 1.2 mg/dL (0.6-1.0) Estimated GFR (Cockcroft-Gault) 46.0 Glucose Level 140 mg/dL (70-99) Calcium Level 8.9 mg/dL (8.5-10.1) Test 09/12/16 11:25 Glucose (Fingerstick) 209 mg/dL (70-99) JOSH GANT MD Sep 12, 2016 14:23
--- NOTE | 2016-09-12 14:26 | RAD ---
Portable chest, 09/12/2016: History: Postop evaluation Comparison is made to yesterday's study. A right jugular vascular sheath remains in place. The right chest tube has been removed. The heart is enlarged. There is increasing pleural thickening inferolaterally on the right compatible with pleural fluid. Mild right basilar atelectasis/infiltrate has worsened slightly. There now appears to be mild left basilar atelectasis. There is no evidence of pneumothorax. IMPRESSION: 1. Increasing small right pleural effusion and underlying mild right basilar atelectasis/infiltrate. 2. Mild left basilar atelectasis
[2016-09-12] MEDS: IV RINGERS,LACTATED 1000ML 1,000 ML IV SCH (15:45)
--- NOTE | 2016-09-12 16:25 | PDOC ---
PROGRESS NOTES Subjective Subjective Pt complaining of fatigue today but has no other complaints. Objective Objective Gen: pt reluctant to speak. Appears somewhat depressed and tired. HEENT: atraumatic Neck: central line placement site is clean, without erythema, warmth or swelling Card: RRR, systolic murmur auscultated along with pericardial rub Resp: CTAB; good air movement Neuro: more conversational then yesterday. More aware and oriented but seems depressed. Vital Signs Date Time Temp Pulse Resp B/P (MAP) Pulse Ox O2 Delivery O2 Flow Rate FiO2 09/12/16 16:14 Room Air 09/12/16 14:14 98.3 63 19 116/56 (76) 96 98.3 09/12/16 08:25 2.0 Intake and Output 09/12/16 07:00 Intake Total 650 ml Output Total 40 ml Balance 610 ml Intake Oral 650 ml Chest Tube Drainage Total 40 ml # Voids 4 Assessment Assessment Pt is post-CABGS and is hemodynamically stable. Mentation improving. Continue to increase activity Home soon. Comment Review of Relevant I have reviewed the following items sarahy (where applicable) has been applied. Labs Laboratory Tests Test 09/10/16 16:46 09/10/16 17:57 09/10/16 18:36 09/10/16 19:39 Glucose (Fingerstick) 155 mg/dL (70-99) 113 mg/dL (70-99) 189 mg/dL (70-99) 221 mg/dL (70-99) Test 09/10/16 20:43 09/10/16 21:37 09/10/16 22:45 09/10/16 23:47 Glucose (Fingerstick) 244 mg/dL (70-99) 213 mg/dL (70-99) 165 mg/dL (70-99) 151 mg/dL (70-99) Test 09/11/16 00:48 09/11/16 01:52 09/11/16 02:13 09/11/16 03:03 Glucose (Fingerstick) 89 mg/dL (70-99) 53 mg/dL (70-99) 166 mg/dL (70-99) 183 mg/dL (70-99) Test 09/11/16 04:01 09/11/16 05:06 09/11/16 05:30 09/11/16 06:09 Glucose (Fingerstick) 143 mg/dL (70-99) 100 mg/dL (70-99) 62 mg/dL (70-99) White Blood Count 12.0 x10^3/uL (4.0-11.0) Red Blood Count 2.87 x10^6/uL (3.50-5.40) Hemoglobin 8.7 g/dL (12.0-15.5) Hematocrit 25.5 % (36.0-47.0) Mean Corpuscular Volume 89 fL (79-100) Mean Corpuscular Hemoglobin 31 pg (25-35) Mean Corpuscular Hemoglobin Concent 34 g/dL (31-37) Red Cell Distribution Width 15.5 % (11.5-14.5) Platelet Count 132 x10^3/uL (140-400) Sodium Level 142 mmol/L (136-145) Potassium Level 4.2 mmol/L (3.5-5.1) Chloride Level 107 mmol/L (98-107) Carbon Dioxide Level 28 mmol/L (21-32) Anion Gap 7 (6-14) Blood Urea Nitrogen 34 mg/dL (7-20) Creatinine 1.3 mg/dL (0.6-1.0) Estimated GFR (Cockcroft-Gault) 41.9 Glucose Level 83 mg/dL (70-99) Calcium Level 8.9 mg/dL (8.5-10.1) Test 09/11/16 06:30 09/11/16 06:50 09/11/16 08:08 09/11/16 09:36 Glucose (Fingerstick) 54 mg/dL (70-99) 122 mg/dL (70-99) 182 mg/dL (70-99) 180 mg/dL (70-99) Test 09/11/16 12:30 09/11/16 17:18 09/11/16 20:54 09/12/16 03:30 Glucose (Fingerstick) 307 mg/dL (70-99) 234 mg/dL (70-99) 185 mg/dL (70-99) White Blood Count 11.6 x10^3/uL (4.0-11.0) Red Blood Count 2.72 x10^6/uL (3.50-5.40) Hemoglobin 8.2 g/dL (12.0-15.5) Hematocrit 24.7 % (36.0-47.0) Mean Corpuscular Volume 91 fL (79-100) Mean Corpuscular Hemoglobin 30 pg (25-35) Mean Corpuscular Hemoglobin Concent 33 g/dL (31-37) Red Cell Distribution Width 16.0 % (11.5-14.5) Platelet Count 129 x10^3/uL (140-400) Sodium Level 139 mmol/L (136-145) Potassium Level 4.0 mmol/L (3.5-5.1) Chloride Level 103 mmol/L (98-107) Carbon Dioxide Level 27 mmol/L (21-32) Anion Gap 9 (6-14) Blood Urea Nitrogen 31 mg/dL (7-20) Creatinine 1.2 mg/dL (0.6-1.0) Estimated GFR (Cockcroft-Gault) 46.0 Glucose Level 140 mg/dL (70-99) Calcium Level 8.9 mg/dL (8.5-10.1) Test 09/12/16 07:52 09/12/16 11:25 Glucose (Fingerstick) 88 mg/dL (70-99) 209 mg/dL (70-99) Laboratory Tests Test 09/11/16 17:18 09/11/16 20:54 09/12/16 03:30 09/12/16 07:52 Glucose (Fingerstick) 234 mg/dL (70-99) 185 mg/dL (70-99) 88 mg/dL (70-99) White Blood Count 11.6 x10^3/uL (4.0-11.0) Red Blood Count 2.72 x10^6/uL (3.50-5.40) Hemoglobin 8.2 g/dL (12.0-15.5) Hematocrit 24.7 % (36.0-47.0) Mean Corpuscular Volume 91 fL (79-100) Mean Corpuscular Hemoglobin 30 pg (25-35) Mean Corpuscular Hemoglobin Concent 33 g/dL (31-37) Red Cell Distribution Width 16.0 % (11.5-14.5) Platelet Count 129 x10^3/uL (140-400) Sodium Level 139 mmol/L (136-145) Potassium Level 4.0 mmol/L (3.5-5.1) Chloride Level 103 mmol/L (98-107) Carbon Dioxide Level 27 mmol/L (21-32) Anion Gap 9 (6-14) Blood Urea Nitrogen 31 mg/dL (7-20) Creatinine 1.2 mg/dL (0.6-1.0) Estimated GFR (Cockcroft-Gault) 46.0 Glucose Level 140 mg/dL (70-99) Calcium Level 8.9 mg/dL (8.5-10.1) Test 09/12/16 11:25 Glucose (Fingerstick) 209 mg/dL (70-99) Medications Current Medications Ondansetron HCl (Zofran) 4 mg PRN Q6HRS PRN IV NAUSEA/VOMITING; Start 09/09/16 at 07:00; Stop 09/10/16 at 06:59; Status DC Fentanyl Citrate (Fentanyl 2ml Vial) 25 mcg PRN Q5MIN PRN IV MILD PAIN; Start 09/09/16 at 07:00; Stop 09/10/16 at 06:59; Status DC Fentanyl Citrate (Fentanyl 2ml Vial) 50 mcg PRN Q5MIN PRN IV MODERATE PAIN; Start 09/09/16 at 07:00; Stop 09/10/16 at 06:59; Status DC Ringer's Solution 1,000 ml @ 30 mls/hr Q24H IV Last administered on 09/09/16 06:41; Start 09/09/16 at 07:00; Stop 09/09/16 at 18:59; Status DC Lidocaine HCl 2 ml PRN 1X PRN ID PRIOR TO IV START; Start 09/09/16 at 07:00; Stop 09/10/16 at 06:59; Status DC Prochlorperazine Edisylate (Compazine) 5 mg PACU PRN PRN IV NAUSEA, MRX1; Start 09/09/16 at 07:00; Stop 09/10/16 at 06:59; Status DC Potassium Chloride 70 meq/ Sodium Bicarbonate 12.5 meq/Lidocaine HCl 24 ml/ Parenteral Electrolytes 571.5 ml @ 571.5 mls/ hr 1X PERIOP ONCE IRR Last administered on 09/09/16 09:37; Start 09/09/16 at 06:00; Stop 09/09/16 at 06:59 ; Status DC Potassium Chloride 15 meq/ Sodium Bicarbonate 12.5 meq/Parenteral Electrolytes 520 ml @ 520 mls/hr 1X PERIOP ONCE IRR ; Start 09/09/16 at 06:00; Stop at 06:59; Status DC Heparin Sodium (Porcine) 73130 unit/Ringer's Solution 1,020 ml @ 1,020 mls/hr 1X PERIOP ONCE IRR Last administered on 09/09/16 09:11; Start 09/09/16 at 06: 00; Stop 09/09/16 at 06:59; Status DC Cefazolin Sodium/ Dextrose 50 ml @ 100 mls/hr 1X ONCE IV Last administered on 09/09/16 09:33; Start 09/09/16 at 06:00; Stop 09/09/16 at 06:29; Status DC Metoprolol Tartrate (Lopressor) 25 mg STK-MED ONCE .ROUTE ; Start 09/09/16 at 06 :19; Stop 09/09/16 at 06:20; Status DC Metoprolol Tartrate (Lopressor) 25 mg ONCE ONCE PO Last administered on 06:40; Start 09/09/16 at 06:45; Stop 09/09/16 at 06:46; Status DC Etomidate (Amidate) 20 mg STK-MED ONCE IV ; Start 09/09/16 at 06:53; Stop at 06:54; Status DC Phenylephrine HCl (Will-Synephrine Inj) 10 mg STK-MED ONCE .ROUTE ; Start at 06:53; Stop 09/09/16 at 06:54; Status DC Propofol 20 ml @ As Directed STK-MED ONCE IV ; Start 09/09/16 at 06:53; Stop at 06:54; Status DC Lidocaine HCl (Lidocaine Pf 2% Vial) 5 ml STK-MED ONCE .ROUTE ; Start 09/09/16 at 06:53; Stop 09/09/16 at 06:54; Status DC Aminocaproic Acid (Amicar) 5,000 mg STK-MED ONCE IV ; Start 09/09/16 at 06:53; Stop 09/09/16 at 06:54; Status DC Nitroglycerin/ Dextrose 0 ml @ As Directed STK-MED ONCE IV ; Start 09/09/16 at 06:53; Stop 09/09/16 at 06:54; Status DC Sufentanil Citrate (Sufenta) 250 mcg STK-MED ONCE .ROUTE ; Start 09/09/16 at 06: 53; Stop 09/09/16 at 06:54; Status DC Epinephrine HCl (Adrenalin) 1 mg STK-MED ONCE .ROUTE ; Start 09/09/16 at 06:54; Stop 09/09/16 at 06:55; Status DC Rocuronium Moore (Zemuron) 100 mg STK-MED ONCE .ROUTE ; Start 09/09/16 at 06: 54; Stop 09/09/16 at 06:55; Status DC Heparin Sodium (Porcine) 30,000 unit STK-MED ONCE .ROUTE ; Start 09/09/16 at 06: 55; Stop 09/09/16 at 06:56; Status DC Cellulose 1 each STK-MED ONCE .ROUTE Last administered on 09/09/16 09:11; Start 09/09/16 at 06:58; Stop 09/09/16 at 06:59; Status DC Papaverine HCl 60 mg STK-MED ONCE .ROUTE Last administered on 09/09/16 09:11; Start 09/09/16 at 06:58; Stop 09/09/16 at 06:59; Status DC Aspirin (Aspirin) 300 mg STK-MED ONCE .ROUTE Last administered on 09/09/16 14: 03; Start 09/09/16 at 06:58; Stop 09/09/16 at 06:59; Status DC Mineral Oil (Muri-Lube) 10 ml STK-MED ONCE MC Last administered on 09/09/16 12 :29; Start 09/09/16 at 06:58; Stop 09/09/16 at 06:59; Status DC Sodium Chloride (Sodium Chloride) 50 ml STK-MED ONCE IJ Last administered on 09:11; Start 09/09/16 at 06:58; Stop 09/09/16 at 06:59; Status DC Fentanyl Citrate (Fentanyl 5ml Vial) 250 mcg STK-MED ONCE .ROUTE ; Start at 07:02; Stop 09/09/16 at 07:03; Status DC Midazolam HCl (Versed) 5 mg STK-MED ONCE .ROUTE ; Start 09/09/16 at 07:08; Stop 09/09/16 at 07:09; Status DC Heparin Sodium (Porcine) 30,000 unit STK-MED ONCE .ROUTE ; Start 09/09/16 at 07: 15; Stop 09/09/16 at 07:16; Status DC Mannitol 500 ml @ 12.5 mls/hr 1X ONCE IV Last administered on 09/09/16 08:00 ; Start 09/09/16 at 08:00; Stop 09/10/16 at 23:59; Status DC Ephedrine Sulfate (Akovaz) 50 mg STK-MED ONCE .ROUTE ; Start 09/09/16 at 08:21; Stop 09/09/16 at 08:22; Status DC Norepinephrine Bitartrate 250 ml @ 0 mls/hr 1X ONCE IV Last administered on 08:30; Start 09/09/16 at 08:30; Stop 09/09/16 at 08:32; Status DC Milrinone Lactate/ Dextrose 100 ml @ 0 mls/hr 1X ONCE IV Last administered on 09/09/16 08:45; Start 09/09/16 at 08:45; Stop 09/09/16 at 08:46; Status DC Insulin Human Regular 150 unit/ Sodium Chloride 151.5 ml @ 0 mls/hr 1X ONCE IV Last administered on 09/09/16 15:35; Start 09/09/16 at 08:45; Stop at 08:46; Status DC Epinephrine HCl (Adrenalin) 30 mg STK-MED ONCE .ROUTE ; Start 09/09/16 at 09:34 ; Stop 09/09/16 at 09:35; Status DC Rocuronium Moore (Zemuron) 100 mg STK-MED ONCE .ROUTE ; Start 09/09/16 at 10: 30; Stop 09/09/16 at 10:31; Status DC Albumin Human 100 ml @ As Directed STK-MED ONCE IV ; Start 09/09/16 at 11:37; Stop 09/09/16 at 11:38; Status DC Albumin Human 100 ml @ As Directed STK-MED ONCE IV ; Start 09/09/16 at 11:37; Stop 09/09/16 at 11:38; Status DC Albumin Human 100 ml @ As Directed STK-MED ONCE IV ; Start 09/09/16 at 11:37; Stop 09/09/16 at 11:38; Status DC Albumin Human 100 ml @ As Directed STK-MED ONCE IV ; Start 09/09/16 at 11:37; Stop 09/09/16 at 11:38; Status DC Protamine Sulfate 50 mg STK-MED ONCE IV ; Start 09/09/16 at 13:09; Stop at 13:10; Status DC Lidocaine HCl (Xylocaine-Mpf 1% Vial) 5 ml STK-MED ONCE .ROUTE ; Start 09/09/16 at 13:13; Stop 09/09/16 at 13:14; Status DC Aminocaproic Acid (Amicar) 5,000 mg STK-MED ONCE IV ; Start 09/09/16 at 13:13; Stop 09/09/16 at 13:14; Status DC Magnesium Sulfate 5 gm STK-MED ONCE .ROUTE ; Start 09/09/16 at 13:13; Stop 09/09 at 13:14; Status DC Calcium Chloride 1,000 mg STK-MED ONCE IV ; Start 09/09/16 at 13:13; Stop at 13:14; Status DC Albumin Human 500 ml @ As Directed STK-MED ONCE IV ; Start 09/09/16 at 13:13; Stop 09/09/16 at 13:14; Status DC Heparin Sodium (Porcine) 30,000 unit STK-MED ONCE .ROUTE ; Start 09/09/16 at 13: 13; Stop 09/09/16 at 13:14; Status DC Sodium Chloride (Normal Saline Flush) 3 ml PRN Q12HR PRN IV AFTER MEDS AND BLOOD DRAWS; Start 09/09/16 at 13:00 Albumin Human 250 ml @ 60 mls/hr PRN Q4HRS PRN IV SEE I/O RECORD Last administered on 09/09/16 19:13; Start 09/09/16 at 13:00 Insulin Human Regular 150 unit/ Sodium Chloride 151.5 ml @ 0 mls/hr CONT PRN PRN IV SEE I/O RECORD Last administered on 09/10/16 11:05; Start 09/09/16 at 13: 00; Stop 09/11/16 at 08:41; Status DC Dextrose (Dextrose 50%-Water Syringe) 25 gm PRN Q15MIN PRN IV LOW BLOOD SUGAR; Start 09/09/16 at 13:00 Amiodarone HCl (Cordarone) 400 mg BID PO Last administered on 09/10/16 07:50; Start 09/10/16 at 09:00; Stop 09/10/16 at 09:00; Status DC Info 1 ea CONT PRN PRN MC SEE COMMENTS; Start 09/09/16 at 13:00 Info 1 ea CONT PRN PRN MC SEE COMMENTS; Start 09/09/16 at 13:00 Magnesium Sulfate/ Dextrose 100 ml @ 100 mls/hr PRN DAILY PRN IV FOR MAG < 2.2 ; Start 09/09/16 at 13:00 Ondansetron HCl (Zofran) 4 mg PRN Q4HRS PRN IV NAUSEA/VOMITING; Start 09/09/16 at 13:00 Morphine Sulfate 2 mg PRN Q1HR PRN IV PAIN Last administered on 09/10/16 05:06 ; Start 09/09/16 at 13:00 Acetaminophen (Tylenol) 650 mg PRN Q4HRS PRN PO MILD PAIN / TEMP; Start at 13:00 Meperidine HCl (Demerol) 12.5 mg PRN Q15MIN PRN IV SHIVERING; Start 09/09/16 at 13:00; Stop 09/10/16 at 08:19; Status DC Propofol 100 ml @ 0 mls/hr CONT PRN PRN IV POSTOP SEDATION UNTIL EXTUBATE; Start 09/09/16 at 13:00; Stop 09/10/16 at 08:16; Status DC Senna/Docusate Sodium (Senna Plus) 1 tab BID PO Last administered on 09/12/16 09:10; Start 09/09/16 at 21:00 Bisacodyl (Dulcolax Supp) 10 mg PRN DAILY PRN DC NO BOWEL MOVEMENT; Start 09/09 at 13:00 Aspirin (Ecotrin) 325 mg DAILYWBKFT PO Last administered on 09/12/16 09:09; Start 09/10/16 at 08:00 Aspirin (Aspirin) 300 mg PRN DAILY PRN DC IF UNABLE TO TAKE PO; Start 09/09/16 at 13:00; Stop 09/10/16 at 08:18; Status DC Albuterol Sulfate (Ventolin Neb Soln) 2.5 mg PRN Q4HRS PRN NEB SHORTNESS OF BREATH; Start 09/09/16 at 13:00 Metoprolol Tartrate (Lopressor) 25 mg BID PO Last administered on 09/10/16 07: 50; Start 09/10/16 at 09:00; Stop 09/10/16 at 09:00; Status DC Clevidipine 100 ml @ 0 mls/hr CONT PRN IV PER PROTOCOL Last administered on 15:31; Start 09/09/16 at 13:00; Stop 09/10/16 at 08:16; Status DC Oxycodone/ Acetaminophen (Percocet 5/325) 1 tab PRN Q4HRS PRN PO MILD PAIN Last administered on 09/11/16 12:29; Start 09/09/16 at 13:00 Oxycodone/ Acetaminophen (Percocet 5/325) 2 tab PRN Q4HRS PRN PO MODERATE PAIN , SEVERE PAIN Last administered on 09/12/16 03:40; Start 09/09/16 at 13:00 Cefazolin Sodium 1 gm/Sodium Chloride 50 ml @ 100 mls/hr Q8H IV ; Start at 15:00; Stop 09/09/16 at 15:00; Status DC Sodium Chloride 1,000 ml @ 0 mls/hr Q0M IV ; Start 09/09/16 at 13:00; Stop at 17:18; Status DC Famotidine (Pepcid) 20 mg QHS IVP Last administered on 09/11/16 21:03; Start at 21:00 Protamine Sulfate 50 mg STK-MED ONCE IV ; Start 09/09/16 at 14:04; Stop at 14:05; Status DC Cefazolin Sodium 1 gm/Sodium Chloride 50 ml @ 100 mls/hr Q8H IV ; Start at 15:00; Stop 09/09/16 at 16:19; Status DC Isoflurane (Isoflurane) 90 ml STK-MED ONCE IH ; Start 09/09/16 at 14:08; Stop at 14:09; Status DC Epinephrine HCl (Adrenalin) 30 mg STK-MED ONCE .ROUTE ; Start 09/09/16 at 14:08 ; Stop 09/09/16 at 14:09; Status DC Epinephrine HCl 4 mg/Sodium Chloride 254 ml @ 0 mls/hr CONT PRN IV SEE I/O RECORD; Start 09/09/16 at 14:15; Stop 09/10/16 at 08:16; Status DC Milrinone Lactate/ Dextrose 100 ml @ 0 mls/hr CONT PRN IV SEE I/O RECORD Last administered on 09/09/16 19:42; Start 09/09/16 at 14:15; Stop 09/10/16 at 08:16 ; Status DC Nitroglycerin/ Dextrose 250 ml @ As Directed STK-MED ONCE IV ; Start 09/09/16 at 14:59; Stop 09/09/16 at 15:00; Status DC Nitroglycerin/ Dextrose 250 ml @ 0 mls/hr CONT PRN IV SEE I/O RECORD Last administered on 09/09/16 15:43; Start 09/09/16 at 15:45; Stop 09/10/16 at 08:16 ; Status DC Ringer's Solution 1,000 ml @ 30 mls/hr Q24H IV Last administered on 09/11/16 17:30; Start 09/09/16 at 15:45 Potassium Chloride 50 ml @ 50 mls/hr Q1H IV Last administered on 09/09/16 17: 32; Start 09/09/16 at 17:00; Stop 09/09/16 at 18:59; Status DC Cefazolin Sodium 1 gm/Sodium Chloride 50 ml @ 100 mls/hr Q8H IV Last administered on 09/11/16 05:25; Start 09/09/16 at 22:00; Stop 09/11/16 at 06:01; Status DC Amiodarone HCl (Cordarone) 200 mg BID PO Last administered on 09/12/16 09:10; Start 09/10/16 at 09:00 Metoprolol Tartrate (Lopressor) 12.5 mg BID PO Last administered on 09/12/16 09 :09; Start 09/10/16 at 09:00 Metoprolol Tartrate (Lopressor) 12.5 mg BID PO ; Start 09/10/16 at 09:00; Status UNV Cefazolin Sodium/ Dextrose (Ancef 2gm Premix) 2 gm STK-MED ONCE IV ; Start 09/09 at 14:00; Stop 09/10/16 at 08:43; Status DC Ferrous Sulfate (Feosol) 325 mg BIDWMEALS PO Last administered on 09/12/16 09: 09; Start 09/11/16 at 09:00 Throat Lozenges (Cepacol Sore Throat Lozenge) 1 al PRN Q2HRS PRN PO SORE THROAT; Start 09/11/16 at 08:45 Al Hydroxide/Mg Hydroxide (Mylanta Plus Xs) 30 ml PRN Q4HRS PRN PO HEARTBURN / GAS; Start 09/11/16 at 08:45 Magnesium Hydroxide (Milk Of Magnesia) 2,400 mg PRN DAILY PRN PO CONSTIPATION; Start 09/11/16 at 08:45 Nitroglycerin (Nitrostat) 0.4 mg PRN Q5MIN PRN SL CHEST PAIN; Start 09/11/16 at 08:45 Alprazolam (Xanax) 0.5 mg BID PO Last administered on 09/12/16 09:10; Start 09/11/16 at 09:00 Nicotine (Nicoderm Cq 14mg) 1 patch DAILY TD Last administered on 09/12/16 09: 10; Start 09/11/16 at 09:00 Pantoprazole Sodium (Protonix) 40 mg DAILYAC PO Last administered on 09/12/16 09:09; Start 09/11/16 at 09:00 Trazodone HCl (Desyrel) 100 mg HS PO Last administered on 09/11/16 21:05; Start 09/11/16 at 21:00 Duloxetine HCl (Cymbalta) 60 mg BID PO Last administered on 09/12/16 09:09; Start 09/11/16 at 09:00 Insulin Detemir (Levemir) 10 units QHS SQ Last administered on 09/11/16 21:17; Start 09/11/16 at 21:00; Stop 09/12/16 at 14:16; Status DC Insulin Aspart (NovoLOG) 0-5 UNITS TIDWMEALS SQ Last administered on 09/12/16 12:24; Start 09/11/16 at 12:00 Dextrose (Dextrose 50%-Water Syringe) 12.5 gm PRN Q15MIN PRN IV SEE COMMENTS; Start 09/11/16 at 09:30 Insulin Detemir (Levemir) 4 units ONCE ONCE SQ Last administered on 09/11/16 10:19; Start 09/11/16 at 09:30; Stop 09/11/16 at 09:42; Status DC Acetaminophen (Tylenol) 650 mg Q6HRS PO Last administered on 09/12/16 12:00; Start 09/12/16 at 12:00 Insulin Detemir (Levemir) 15 units QHS SQ ; Start 09/12/16 at 21:00 Active Scripts Active Xanax (Alprazolam) 0.5 Mg Tablet 1 Tab PO BID Novolog Flexpen (Insulin Aspart) 100 Unit/1 Ml Insuln.pen 5 Unit SQ TIDWMEALS 30 Days Levemir (Insulin Detemir) 100 Unit/1 Ml Vial 20 Unit SQ HS 30 Days Pantoprazole Sodium 40 Mg Tablet. 40 Mg PO DAILYAC 30 Days Reported Tylenol (Acetaminophen) 325 Mg Tablet 650 Mg PO PRN Q6HRS PRN Oxycodone Hcl 15 Mg Tablet 15 Mg PO PRN Q6HRS PRN Trazodone Hcl 50 Mg Tablet 100 Mg PO HS Chantix (Varenicline Tartrate) 1 Mg Tablet 1 Mg PO BID Cymbalta (Duloxetine Hcl) 60 Mg Capsule. 1 Cap PO BID Gabapentin 600 Mg Tablet 600 Mg PO TID Ambien (Zolpidem Tartrate) 10 Mg Tablet 1 Tab PO QHS NICODERM CQ 14mg (Nicotine) 1 Each Patch.td24 1 Patch TP DAILY Pentoxifylline 400 Mg Tablet.er 400 Mg PO BIDWMEALS Aspir-Low (Aspirin) 81 Mg Tablet.dr 1 Tab PO DAILY Voltaren (Diclofenac Sodium) 100 Gm Gel..gram. 1 Gm TP QID Vitals/I & O Vital Sign - Last 24 Hours 09/11/16 09/11/16 09/11/16 09/11/16 19:14 19:43 19:50 21:03 Temp 98.5 98.5 Pulse 66 64 Resp 16 18 B/P (MAP) 138/38 (71) 155/71 (99) Pulse Ox 94 O2 Delivery Room Air Room Air O2 Flow Rate 2.0 09/11/16 09/11/16 09/11/16 09/12/16 21:04 21:05 23:24 03:50 Temp 98.8 98.7 98.8 98.7 Pulse 64 64 66 67 Resp 18 14 B/P (MAP) 155/71 155/71 166/69 (101) 144/63 (90) Pulse Ox 93 92 O2 Delivery Room Air Room Air 09/12/16 09/12/16 09/12/16 09/12/16 07:51 08:25 09:09 09:10 Temp 97.9 97.9 Pulse 68 68 68 Resp 18 B/P (MAP) 146/70 (95) 146/70 146/70 Pulse Ox 95 O2 Delivery Room Air Room Air O2 Flow Rate 2.0 09/12/16 09/12/16 09/12/16 11:25 14:14 16:14 Temp 98.0 98.3 98.0 98.3 Pulse 68 63 Resp 18 19 B/P (MAP) 129/55 (79) 116/56 (76) Pulse Ox 96 96 O2 Delivery Room Air Room Air Room Air Intake and Output 09/11/16 09/11/16 09/12/16 15:00 23:00 07:00 Intake Total 300 ml 200 ml 150 ml Output Total 40 ml Balance 260 ml 200 ml 150 ml Nutrition Consultation Dietary Evaluation: Recommendations by RD: Dietary education by RD, Increase Calorie Intake, Protein supplementation Comments: Diet education provided to pt on CABG- handout provided to use for home continue boost glucose control tid as po intake of meals remains minimal s/p surgery Expected Outcomes/Goals: to meet > 75% est nutr needs Malnutrition Findings: Body Fat Depletion (Non Severe: Mild Depletion Weight Status: Appropriate SAUNDRA FORTUNE MD Sep 12, 2016 16:25
[2016-09-12 19:00] VITALS: BP 151/66
[2016-09-12] MEDS: traZODone 100 MG TABLET. PO SCH (21:20)
[2016-09-12] MEDS: FAMOTIDINE 20 MG/2 ML VIAL IVP SCH (21:22)
[2016-09-12] MEDS: INSULIN DETEMIR 300 UNITS/3 ML INSULN.PEN. SQ SCH (21:25)
[2016-09-12 23:00] VITALS: BP 107/55
[2016-09-13] VITALS (7 sets, daily range): BP systolic 116–144; BP diastolic 47–84
[2016-09-13] MEDS: ACETAMINOPHEN 325 MG TABLET. PO SCH ×2 (06:17)
[2016-09-13] MEDS ORDERED: IV DEXTROSE 5% 0 ML IV ONE (07:33)
[2016-09-13] MEDS ORDERED: DEXTROSE ORAL GEL 15 GM TUBE. PO PRN (07:45)
[2016-09-13] MEDS: INSULIN ASPART 300 UNITS/3 ML INSULN.PEN SQ SCH ×5 (08:00→18:02)
[2016-09-13] MEDS: FERROUS SULFATE 325 MG TABLET. PO SCH ×2 (09:05→17:55)
[2016-09-13] MEDS: DULoxetine HCL 30 MG CAPSULE.DR PO SCH ×2 (09:05→21:22)
[2016-09-13] MEDS: ASPIRIN ENTERIC COATED 325 MG TABLET.DR. PO SCH (09:05)
[2016-09-13] MEDS: SENNOSIDES/DOCUSATE 8.6/50MG TABLET. PO SCH ×2 (09:05→21:00)
[2016-09-13] MEDS: AMIODARONE HCL 200 MG TABLET. PO SCH ×2 (09:06→21:23)
[2016-09-13] MEDS: ALPRAZolam 0.5 MG TABLET PO SCH ×2 (09:06→21:22)
[2016-09-13] MEDS: METOPROLOL TART IMMED RELEASE 25 MG TABLET. PO SCH ×2 (09:07→21:23)
[2016-09-13] MEDS: PANTOPRAZOLE 40 MG TABLET.DR. PO SCH (09:07)
[2016-09-13] MEDS: NICOTINE 14MG PATCH. TD SCH (09:08)
[2016-09-13] MEDS: oxyCODONE/APAP 5/325 1 TAB TABLET PO PRN ×2 (09:09→21:22)
--- NOTE | 2016-09-13 09:35 | PDOC ---
SUBJECTIVE Subjective up in chair eating breakfast, still looks depressed OBJECTIVE Vital Signs Vital Signs Date Time Temp Pulse Resp B/P (MAP) Pulse Ox O2 Delivery O2 Flow Rate FiO2 09/13/16 09:09 94 Room Air 09/13/16 09:07 61 131/53 09/13/16 09:06 61 131/53 09/13/16 07:30 94 Room Air 09/13/16 07:16 98.0 61 18 131/53 (79) Room Air 98.0 09/13/16 03:00 98.3 62 20 144/63 (90) 96 Nasal Cannula 2.0 98.3 09/12/16 23:00 97.6 57 20 107/55 (72) 92 Nasal Cannula 2.0 97.6 09/12/16 21:22 65 151/66 09/12/16 21:21 65 151/66 09/12/16 19:20 Nasal Cannula 2.0 09/12/16 19:00 97.8 65 18 151/66 (94) 92 97.8 09/12/16 16:14 Room Air 09/12/16 14:14 98.3 63 19 116/56 (76) 96 Room Air 98.3 09/12/16 11:25 98.0 68 18 129/55 (79) 96 Room Air 98.0 I & O Intake and Output 09/13/16 06:59 Intake Total 1226 ml Balance 1226 ml Intake Oral 1226 ml # Voids 3 # Bowel Movements 1 PHYSICAL EXAM Physical Exam ronchi bilateral lower lobes , decrease BS on right , otherwise same ASSESSMENT/PLAN Assessment/Plan 1- S/P CABG Day #4 2-ischemic cardiomyopathy 3- aortic stenosis 4. anemia expected post op , Hb stable 5. Diabetes mellitus type 2, BS low this AM will decrease Levemir and start premeal low dose insulin 6. Coronary artery disease. 7. Peripheral vascular disease, rather severe for her age. 8. Osteoarthritis 9. L humerous FX in July not healing 10. Depression 11. Atelactasis both lungs encouraged to take deep breath discussed SNU for rehab, she is in agreement with that Problems: COMMENT Lab Laboratory Tests Test 09/12/16 11:25 09/12/16 16:51 09/12/16 21:14 09/13/16 08:12 Glucose (Fingerstick) 209 mg/dL (70-99) 209 mg/dL (70-99) 250 mg/dL (70-99) 100 mg/dL (70-99) JOSH GANT MD Sep 13, 2016 09:35
--- NOTE | 2016-09-13 10:07 | PDOC ---
PROGRESS NOTES Subjective Subjective Pt is in much better spirits today. Pt states that she is not as confused and feeling much better than yesterday. Pt complaining of gas and abdominal bloating. Objective Objective Gen: pt sitting comfortably in chair eating breakfast. Pt is cooperative and conversational. HEENT: atraumatic Card: RRR; no new heart sounds Resp: CTAB; no rhonchi/rales/wheezes Neuro: pt is much more oriented today; pt able to hold a conversation. Still signs of some confusion and mental fogginess are present. Vital Signs Date Time Temp Pulse Resp B/P (MAP) Pulse Ox O2 Delivery O2 Flow Rate FiO2 09/13/16 09:09 94 Room Air 09/13/16 09:07 61 131/53 09/13/16 07:16 98.0 18 98.0 09/13/16 03:00 2.0 Intake and Output 09/13/16 07:00 Intake Total 1226 ml Balance 1226 ml Intake Oral 1226 ml # Voids 3 # Bowel Movements 1 Assessment Assessment Pt is showing signs of mental improvement. CVC site and chest incision are clean, with appropriate color. No swelling, tenderness or warmth. Pt to be monitored until mental acuity returns to baseline. Cardiac function is stable. Comment Review of Relevant I have reviewed the following items sarahy (where applicable) has been applied. Labs Laboratory Tests Test 09/11/16 12:30 09/11/16 17:18 09/11/16 20:54 09/12/16 03:30 Glucose (Fingerstick) 307 mg/dL (70-99) 234 mg/dL (70-99) 185 mg/dL (70-99) White Blood Count 11.6 x10^3/uL (4.0-11.0) Red Blood Count 2.72 x10^6/uL (3.50-5.40) Hemoglobin 8.2 g/dL (12.0-15.5) Hematocrit 24.7 % (36.0-47.0) Mean Corpuscular Volume 91 fL (79-100) Mean Corpuscular Hemoglobin 30 pg (25-35) Mean Corpuscular Hemoglobin Concent 33 g/dL (31-37) Red Cell Distribution Width 16.0 % (11.5-14.5) Platelet Count 129 x10^3/uL (140-400) Sodium Level 139 mmol/L (136-145) Potassium Level 4.0 mmol/L (3.5-5.1) Chloride Level 103 mmol/L (98-107) Carbon Dioxide Level 27 mmol/L (21-32) Anion Gap 9 (6-14) Blood Urea Nitrogen 31 mg/dL (7-20) Creatinine 1.2 mg/dL (0.6-1.0) Estimated GFR (Cockcroft-Gault) 46.0 Glucose Level 140 mg/dL (70-99) Calcium Level 8.9 mg/dL (8.5-10.1) Test 09/12/16 07:52 09/12/16 11:25 09/12/16 16:51 09/12/16 21:14 Glucose (Fingerstick) 88 mg/dL (70-99) 209 mg/dL (70-99) 209 mg/dL (70-99) 250 mg/dL (70-99) Test 09/13/16 08:12 Glucose (Fingerstick) 100 mg/dL (70-99) Laboratory Tests Test 09/12/16 11:25 09/12/16 16:51 09/12/16 21:14 09/13/16 08:12 Glucose (Fingerstick) 209 mg/dL (70-99) 209 mg/dL (70-99) 250 mg/dL (70-99) 100 mg/dL (70-99) Medications Current Medications Ondansetron HCl (Zofran) 4 mg PRN Q6HRS PRN IV NAUSEA/VOMITING; Start 09/09/16 at 07:00; Stop 09/10/16 at 06:59; Status DC Fentanyl Citrate (Fentanyl 2ml Vial) 25 mcg PRN Q5MIN PRN IV MILD PAIN; Start 09/09/16 at 07:00; Stop 09/10/16 at 06:59; Status DC Fentanyl Citrate (Fentanyl 2ml Vial) 50 mcg PRN Q5MIN PRN IV MODERATE PAIN; Start 09/09/16 at 07:00; Stop 09/10/16 at 06:59; Status DC Ringer's Solution 1,000 ml @ 30 mls/hr Q24H IV Last administered on 09/09/16t 06:41; Start 09/09/16 at 07:00; Stop 09/09/16 at 18:59; Status DC Lidocaine HCl 2 ml PRN 1X PRN ID PRIOR TO IV START; Start 09/09/16 at 07:00; Stop 09/10/16 at 06:59; Status DC Prochlorperazine Edisylate (Compazine) 5 mg PACU PRN PRN IV NAUSEA, MRX1; Start 09/09/16 at 07:00; Stop 09/10/16 at 06:59; Status DC Potassium Chloride 70 meq/ Sodium Bicarbonate 12.5 meq/Lidocaine HCl 24 ml/ Parenteral Electrolytes 571.5 ml @ 571.5 mls/ hr 1X PERIOP ONCE IRR Last administered on 09/09/16 09:37; Start 09/09/16 at 06:00; Stop 09/09/16 at 06:59 ; Status DC Potassium Chloride 15 meq/ Sodium Bicarbonate 12.5 meq/Parenteral Electrolytes 520 ml @ 520 mls/hr 1X PERIOP ONCE IRR ; Start 09/09/16 at 06:00; Stop at 06:59; Status DC Heparin Sodium (Porcine) 44273 unit/Ringer's Solution 1,020 ml @ 1,020 mls/hr 1X PERIOP ONCE IRR Last administered on 09/09/16 09:11; Start 09/09/16 at 06: 00; Stop 09/09/16 at 06:59; Status DC Cefazolin Sodium/ Dextrose 50 ml @ 100 mls/hr 1X ONCE IV Last administered on 09/09/16 09:33; Start 09/09/16 at 06:00; Stop 09/09/16 at 06:29; Status DC Metoprolol Tartrate (Lopressor) 25 mg STK-MED ONCE .ROUTE ; Start 09/09/16 at 06 :19; Stop 09/09/16 at 06:20; Status DC Metoprolol Tartrate (Lopressor) 25 mg ONCE ONCE PO Last administered on 06:40; Start 09/09/16 at 06:45; Stop 09/09/16 at 06:46; Status DC Etomidate (Amidate) 20 mg STK-MED ONCE IV ; Start 09/09/16 at 06:53; Stop at 06:54; Status DC Phenylephrine HCl (Will-Synephrine Inj) 10 mg STK-MED ONCE .ROUTE ; Start at 06:53; Stop 09/09/16 at 06:54; Status DC Propofol 20 ml @ As Directed STK-MED ONCE IV ; Start 09/09/16 at 06:53; Stop at 06:54; Status DC Lidocaine HCl (Lidocaine Pf 2% Vial) 5 ml STK-MED ONCE .ROUTE ; Start 09/09/16 at 06:53; Stop 09/09/16 at 06:54; Status DC Aminocaproic Acid (Amicar) 5,000 mg STK-MED ONCE IV ; Start 09/09/16 at 06:53; Stop 09/09/16 at 06:54; Status DC Nitroglycerin/ Dextrose 0 ml @ As Directed STK-MED ONCE IV ; Start 09/09/16 at 06:53; Stop 09/09/16 at 06:54; Status DC Sufentanil Citrate (Sufenta) 250 mcg STK-MED ONCE .ROUTE ; Start 09/09/16 at 06: 53; Stop 09/09/16 at 06:54; Status DC Epinephrine HCl (Adrenalin) 1 mg STK-MED ONCE .ROUTE ; Start 09/09/16 at 06:54; Stop 09/09/16 at 06:55; Status DC Rocuronium [place] (Zemuron) 100 mg STK-MED ONCE .ROUTE ; Start 09/09/16 at 06: 54; Stop 09/09/16 at 06:55; Status DC Heparin Sodium (Porcine) 30,000 unit STK-MED ONCE .ROUTE ; Start 09/09/16 at 06: 55; Stop 09/09/16 at 06:56; Status DC Cellulose 1 each STK-MED ONCE .ROUTE Last administered on 09/09/16 09:11; Start 09/09/16 at 06:58; Stop 09/09/16 at 06:59; Status DC Papaverine HCl 60 mg STK-MED ONCE .ROUTE Last administered on 09/09/16 09:11; Start 09/09/16 at 06:58; Stop 09/09/16 at 06:59; Status DC Aspirin (Aspirin) 300 mg STK-MED ONCE .ROUTE Last administered on 09/09/16 14: 03; Start 09/09/16 at 06:58; Stop 09/09/16 at 06:59; Status DC Mineral Oil (Muri-Lube) 10 ml STK-MED ONCE MC Last administered on 09/09/16 12 :29; Start 09/09/16 at 06:58; Stop 09/09/16 at 06:59; Status DC Sodium Chloride (Sodium Chloride) 50 ml STK-MED ONCE IJ Last administered on 09:11; Start 09/09/16 at 06:58; Stop 09/09/16 at 06:59; Status DC Fentanyl Citrate (Fentanyl 5ml Vial) 250 mcg STK-MED ONCE .ROUTE ; Start at 07:02; Stop 09/09/16 at 07:03; Status DC Midazolam HCl (Versed) 5 mg STK-MED ONCE .ROUTE ; Start 09/09/16 at 07:08; Stop 09/09/16 at 07:09; Status DC Heparin Sodium (Porcine) 30,000 unit STK-MED ONCE .ROUTE ; Start 09/09/16 at 07: 15; Stop 09/09/16 at 07:16; Status DC Mannitol 500 ml @ 12.5 mls/hr 1X ONCE IV Last administered on 09/09/16 08:00 ; Start 09/09/16 at 08:00; Stop 09/10/16 at 23:59; Status DC Ephedrine Sulfate (Akovaz) 50 mg STK-MED ONCE .ROUTE ; Start 09/09/16 at 08:21; Stop 09/09/16 at 08:22; Status DC Norepinephrine Bitartrate 250 ml @ 0 mls/hr 1X ONCE IV Last administered on 08:30; Start 09/09/16 at 08:30; Stop 09/09/16 at 08:32; Status DC Milrinone Lactate/ Dextrose 100 ml @ 0 mls/hr 1X ONCE IV Last administered on 09/09/16 08:45; Start 09/09/16 at 08:45; Stop 09/09/16 at 08:46; Status DC Insulin Human Regular 150 unit/ Sodium Chloride 151.5 ml @ 0 mls/hr 1X ONCE IV Last administered on 09/09/16 15:35; Start 09/09/16 at 08:45; Stop at 08:46; Status DC Epinephrine HCl (Adrenalin) 30 mg STK-MED ONCE .ROUTE ; Start 09/09/16 at 09:34 ; Stop 09/09/16 at 09:35; Status DC Rocuronium [place] (Zemuron) 100 mg STK-MED ONCE .ROUTE ; Start 09/09/16 at 10: 30; Stop 09/09/16 at 10:31; Status DC Albumin Human 100 ml @ As Directed STK-MED ONCE IV ; Start 09/09/16 at 11:37; Stop 09/09/16 at 11:38; Status DC Albumin Human 100 ml @ As Directed STK-MED ONCE IV ; Start 09/09/16 at 11:37; Stop 09/09/16 at 11:38; Status DC Albumin Human 100 ml @ As Directed STK-MED ONCE IV ; Start 09/09/16 at 11:37; Stop 09/09/16 at 11:38; Status DC Albumin Human 100 ml @ As Directed STK-MED ONCE IV ; Start 09/09/16 at 11:37; Stop 09/09/16 at 11:38; Status DC Protamine Sulfate 50 mg STK-MED ONCE IV ; Start 09/09/16 at 13:09; Stop at 13:10; Status DC Lidocaine HCl (Xylocaine-Mpf 1% Vial) 5 ml STK-MED ONCE .ROUTE ; Start 09/09/16 at 13:13; Stop 09/09/16 at 13:14; Status DC Aminocaproic Acid (Amicar) 5,000 mg STK-MED ONCE IV ; Start 09/09/16 at 13:13; Stop 09/09/16 at 13:14; Status DC Magnesium Sulfate 5 gm STK-MED ONCE .ROUTE ; Start 09/09/16 at 13:13; Stop 09/09 at 13:14; Status DC Calcium Chloride 1,000 mg STK-MED ONCE IV ; Start 09/09/16 at 13:13; Stop at 13:14; Status DC Albumin Human 500 ml @ As Directed STK-MED ONCE IV ; Start 09/09/16 at 13:13; Stop 09/09/16 at 13:14; Status DC Heparin Sodium (Porcine) 30,000 unit STK-MED ONCE .ROUTE ; Start 09/09/16 at 13: 13; Stop 09/09/16 at 13:14; Status DC Sodium Chloride (Normal Saline Flush) 3 ml PRN Q12HR PRN IV AFTER MEDS AND BLOOD DRAWS; Start 09/09/16 at 13:00 Albumin Human 250 ml @ 60 mls/hr PRN Q4HRS PRN IV SEE I/O RECORD Last administered on 09/09/16 19:13; Start 09/09/16 at 13:00 Insulin Human Regular 150 unit/ Sodium Chloride 151.5 ml @ 0 mls/hr CONT PRN PRN IV SEE I/O RECORD Last administered on 09/10/16 11:05; Start 09/09/16 at 13: 00; Stop 09/11/16 at 08:41; Status DC Dextrose (Dextrose 50%-Water Syringe) 25 gm PRN Q15MIN PRN IV LOW BLOOD SUGAR; Start 09/09/16 at 13:00 Amiodarone HCl (Cordarone) 400 mg BID PO Last administered on 09/10/16 07:50; Start 09/10/16 at 09:00; Stop 09/10/16 at 09:00; Status DC Info 1 ea CONT PRN PRN MC SEE COMMENTS; Start 09/09/16 at 13:00 Info 1 ea CONT PRN PRN MC SEE COMMENTS; Start 09/09/16 at 13:00 Magnesium Sulfate/ Dextrose 100 ml @ 100 mls/hr PRN DAILY PRN IV FOR MAG < 2.2 ; Start 09/09/16 at 13:00 Ondansetron HCl (Zofran) 4 mg PRN Q4HRS PRN IV NAUSEA/VOMITING; Start 09/09/16 at 13:00 Morphine Sulfate 2 mg PRN Q1HR PRN IV PAIN Last administered on 09/10/16 05:06 ; Start 09/09/16 at 13:00 Acetaminophen (Tylenol) 650 mg PRN Q4HRS PRN PO MILD PAIN / TEMP; Start at 13:00 Meperidine HCl (Demerol) 12.5 mg PRN Q15MIN PRN IV SHIVERING; Start 09/09/16 at 13:00; Stop 09/10/16 at 08:19; Status DC Propofol 100 ml @ 0 mls/hr CONT PRN PRN IV POSTOP SEDATION UNTIL EXTUBATE; Start 09/09/16 at 13:00; Stop 09/10/16 at 08:16; Status DC Senna/Docusate Sodium (Senna Plus) 1 tab BID PO Last administered on 09/13/16 09:05; Start 09/09/16 at 21:00 Bisacodyl (Dulcolax Supp) 10 mg PRN DAILY PRN OH NO BOWEL MOVEMENT; Start 09/09 at 13:00 Aspirin (Ecotrin) 325 mg DAILYWBKFT PO Last administered on 09/13/16 09:05; Start 09/10/16 at 08:00 Aspirin (Aspirin) 300 mg PRN DAILY PRN OH IF UNABLE TO TAKE PO; Start 09/09/16 at 13:00; Stop 09/10/16 at 08:18; Status DC Albuterol Sulfate (Ventolin Neb Soln) 2.5 mg PRN Q4HRS PRN NEB SHORTNESS OF BREATH; Start 09/09/16 at 13:00 Metoprolol Tartrate (Lopressor) 25 mg BID PO Last administered on 09/10/16 07: 50; Start 09/10/16 at 09:00; Stop 09/10/16 at 09:00; Status DC Clevidipine 100 ml @ 0 mls/hr CONT PRN IV PER PROTOCOL Last administered on 15:31; Start 09/09/16 at 13:00; Stop 09/10/16 at 08:16; Status DC Oxycodone/ Acetaminophen (Percocet 5/325) 1 tab PRN Q4HRS PRN PO MILD PAIN Last administered on 09/13/16 09:09; Start 09/09/16 at 13:00 Oxycodone/ Acetaminophen (Percocet 5/325) 2 tab PRN Q4HRS PRN PO MODERATE PAIN , SEVERE PAIN Last administered on 09/12/16 03:40; Start 09/09/16 at 13:00 Cefazolin Sodium 1 gm/Sodium Chloride 50 ml @ 100 mls/hr Q8H IV ; Start at 15:00; Stop 09/09/16 at 15:00; Status DC Sodium Chloride 1,000 ml @ 0 mls/hr Q0M IV ; Start 09/09/16 at 13:00; Stop at 17:18; Status DC Famotidine (Pepcid) 20 mg QHS IVP Last administered on 09/12/16 21:22; Start at 21:00 Protamine Sulfate 50 mg STK-MED ONCE IV ; Start 09/09/16 at 14:04; Stop at 14:05; Status DC Cefazolin Sodium 1 gm/Sodium Chloride 50 ml @ 100 mls/hr Q8H IV ; Start at 15:00; Stop 09/09/16 at 16:19; Status DC Isoflurane (Isoflurane) 90 ml STK-MED ONCE IH ; Start 09/09/16 at 14:08; Stop at 14:09; Status DC Epinephrine HCl (Adrenalin) 30 mg STK-MED ONCE .ROUTE ; Start 09/09/16 at 14:08 ; Stop 09/09/16 at 14:09; Status DC Epinephrine HCl 4 mg/Sodium Chloride 254 ml @ 0 mls/hr CONT PRN IV SEE I/O RECORD; Start 09/09/16 at 14:15; Stop 09/10/16 at 08:16; Status DC Milrinone Lactate/ Dextrose 100 ml @ 0 mls/hr CONT PRN IV SEE I/O RECORD Last administered on 09/09/16 19:42; Start 09/09/16 at 14:15; Stop 09/10/16 at 08:16 ; Status DC Nitroglycerin/ Dextrose 250 ml @ As Directed STK-MED ONCE IV ; Start 09/09/16 at 14:59; Stop 09/09/16 at 15:00; Status DC Nitroglycerin/ Dextrose 250 ml @ 0 mls/hr CONT PRN IV SEE I/O RECORD Last administered on 09/09/16 15:43; Start 09/09/16 at 15:45; Stop 09/10/16 at 08:16 ; Status DC Ringer's Solution 1,000 ml @ 30 mls/hr Q24H IV Last administered on 09/11/16 17:30; Start 09/09/16 at 15:45 Potassium Chloride 50 ml @ 50 mls/hr Q1H IV Last administered on 09/09/16 17: 32; Start 09/09/16 at 17:00; Stop 09/09/16 at 18:59; Status DC Cefazolin Sodium 1 gm/Sodium Chloride 50 ml @ 100 mls/hr Q8H IV Last administered on 09/11/16 05:25; Start 09/09/16 at 22:00; Stop 09/11/16 at 06:01; Status DC Amiodarone HCl (Cordarone) 200 mg BID PO Last administered on 09/13/16 09:06; Start 09/10/16 at 09:00 Metoprolol Tartrate (Lopressor) 12.5 mg BID PO Last administered on 09/13/16 09 :07; Start 09/10/16 at 09:00 Metoprolol Tartrate (Lopressor) 12.5 mg BID PO ; Start 09/10/16 at 09:00; Status UNV Cefazolin Sodium/ Dextrose (Ancef 2gm Premix) 2 gm STK-MED ONCE IV ; Start 09/09 at 14:00; Stop 09/10/16 at 08:43; Status DC Ferrous Sulfate (Feosol) 325 mg BIDWMEALS PO Last administered on 09/13/16 09: 05; Start 09/11/16 at 09:00 Throat Lozenges (Cepacol Sore Throat Lozenge) 1 al PRN Q2HRS PRN PO SORE THROAT; Start 09/11/16 at 08:45 Al Hydroxide/Mg Hydroxide (Mylanta Plus Xs) 30 ml PRN Q4HRS PRN PO HEARTBURN / GAS; Start 09/11/16 at 08:45 Magnesium Hydroxide (Milk Of Magnesia) 2,400 mg PRN DAILY PRN PO CONSTIPATION; Start 09/11/16 at 08:45 Nitroglycerin (Nitrostat) 0.4 mg PRN Q5MIN PRN SL CHEST PAIN; Start 09/11/16 at 08:45 Alprazolam (Xanax) 0.5 mg BID PO Last administered on 09/13/16 09:06; Start 09/11/16 at 09:00 Nicotine (Nicoderm Cq 14mg) 1 patch DAILY TD Last administered on 09/13/16 09: 08; Start 09/11/16 at 09:00 Pantoprazole Sodium (Protonix) 40 mg DAILYAC PO Last administered on 09/13/16 09:07; Start 09/11/16 at 09:00 Trazodone HCl (Desyrel) 100 mg HS PO Last administered on 09/12/16 21:20; Start 09/11/16 at 21:00 Duloxetine HCl (Cymbalta) 60 mg BID PO Last administered on 09/13/16 09:05; Start 09/11/16 at 09:00 Insulin Detemir (Levemir) 10 units QHS SQ Last administered on 09/11/16 21:17; Start 09/11/16 at 21:00; Stop 09/12/16 at 14:16; Status DC Insulin Aspart (NovoLOG) 0-5 UNITS TIDWMEALS SQ Last administered on 09/12/16 17:18; Start 09/11/16 at 12:00 Dextrose (Dextrose 50%-Water Syringe) 12.5 gm PRN Q15MIN PRN IV SEE COMMENTS; Start 09/11/16 at 09:30 Insulin Detemir (Levemir) 4 units ONCE ONCE SQ Last administered on 09/11/16 10:19; Start 09/11/16 at 09:30; Stop 09/11/16 at 09:42; Status DC Acetaminophen (Tylenol) 650 mg Q6HRS PO Last administered on 09/13/16 06:17; Start 09/12/16 at 12:00 Insulin Detemir (Levemir) 15 units QHS SQ Last administered on 09/12/16 21:25; Start 09/12/16 at 21:00 Dextrose 250 ml @ As Directed STK-MED ONCE IV ; Start 09/13/16 at 07:33; Stop at 07:34; Status DC Glucose (Insta-Glucose) 15 gm PRN Q15MIN PRN PO LOW BLOOD SUGAR Last administered on 09/13/16 08:07; Start 09/13/16 at 07:45 Insulin Aspart (NovoLOG) 2 units TIDAC SQ ; Start 09/13/16 at 11:30 Active Scripts Active Xanax (Alprazolam) 0.5 Mg Tablet 1 Tab PO BID Novolog Flexpen (Insulin Aspart) 100 Unit/1 Ml Insuln.pen 5 Unit SQ TIDWMEALS 30 Days Levemir (Insulin Detemir) 100 Unit/1 Ml Vial 20 Unit SQ HS 30 Days Pantoprazole Sodium 40 Mg Tablet.dr 40 Mg PO DAILYAC 30 Days Reported Tylenol (Acetaminophen) 325 Mg Tablet 650 Mg PO PRN Q6HRS PRN Oxycodone Hcl 15 Mg Tablet 15 Mg PO PRN Q6HRS PRN Trazodone Hcl 50 Mg Tablet 100 Mg PO HS Chantix (Varenicline Tartrate) 1 Mg Tablet 1 Mg PO BID Cymbalta (Duloxetine Hcl) 60 Mg Capsule. 1 Cap PO BID Gabapentin 600 Mg Tablet 600 Mg PO TID Ambien (Zolpidem Tartrate) 10 Mg Tablet 1 Tab PO QHS NICODERM CQ 14mg (Nicotine) 1 Each Patch.td24 1 Patch TP DAILY Pentoxifylline 400 Mg Tablet.er 400 Mg PO BIDWMEALS Aspir-Low (Aspirin) 81 Mg Tablet. 1 Tab PO DAILY Voltaren (Diclofenac Sodium) 100 Gm Gel..gram. 1 Gm TP QID Vitals/I & O Vital Sign - Last 24 Hours 09/12/16 09/12/16 09/12/16 09/12/16 11:25 14:14 16:14 19:00 Temp 98.0 98.3 97.8 98.0 98.3 97.8 Pulse 68 63 65 Resp 18 19 18 B/P (MAP) 129/55 (79) 116/56 (76) 151/66 (94) Pulse Ox 96 96 92 O2 Delivery Room Air Room Air Room Air 09/12/16 09/12/16 09/12/16 09/12/16 19:20 21:21 21:22 23:00 Temp 97.6 97.6 Pulse 65 65 57 Resp 20 B/P (MAP) 151/66 151/66 107/55 (72) Pulse Ox 92 O2 Delivery Nasal Cannula Nasal Cannula O2 Flow Rate 2.0 2.0 09/13/16 09/13/16 09/13/16 09/13/16 03:00 07:16 07:30 09:06 Temp 98.3 98.0 98.3 98.0 Pulse 62 61 61 Resp 20 18 B/P (MAP) 144/63 (90) 131/53 (79) 131/53 Pulse Ox 96 94 O2 Delivery Nasal Cannula Room Air Room Air O2 Flow Rate 2.0 09/13/16 09/13/16 09:07 09:09 Pulse 61 B/P (MAP) 131/53 Pulse Ox 94 O2 Delivery Room Air Intake and Output 809/12/16 09/13/16 15:00 23:00 07:00 Intake Total 990 ml 236 ml Balance 990 ml 236 ml Nutrition Consultation Dietary Evaluation: Recommendations by RD: Dietary education by RD, Increase Calorie Intake, Protein supplementation Comments: 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
[2016-09-13 13:17] LABS: HEMATOCRIT 24.9 % (36.0-47.0); HEMOGLOBIN 8.5 g/dL (12.0-15.5); RED BLOOD COUNT 2.76 x10^6/uL (3.50-5.40); RED CELL DISTRIBUTION WIDTH 15.5 % (11.5-14.5); WHITE BLOOD COUNT 10.4 x10^3/uL (4.0-11.0)
[2016-09-13] MEDS ORDERED: METO25TA4 PO (13:24)
[2016-09-13] MEDS ORDERED: OXYC1TAB7 PO (13:24)
[2016-09-13] MEDS ORDERED: ASPI325T11 PO (13:24)
[2016-09-13] MEDS ORDERED: SENN-22 PO (13:24)
[2016-09-13 13:31] LABS: CALCIUM 8.5 mg/dL (8.5-10.1); CREATININE 1.1 mg/dL (0.6-1.0); GFR 50.8; MAGNESIUM 1.7 mg/dL (1.8-2.4); POTASSIUM 3.6 mmol/L (3.5-5.1)
--- NOTE | 2016-09-13 14:08 | PDOC ---
PROGRESS NOTES Subjective Subjective Patient is speaking more again today. She states her pain is well controlled today. She states that she started some of the therapy exercises I discussed with her yesterday when therapy came and it hurt. She also states she has been getting up to go to the bathroom regularly and no problems with that. Objective Vital Signs Vital Signs Date Time Temp Pulse Resp B/P (MAP) Pulse Ox O2 Delivery O2 Flow Rate FiO2 09/13/16 12:08 97.6 69 125/59 (81) 94 Nasal Cannula 2.0 97.6 09/13/16 10:45 19 Physical Exam Patient thoughts much more coherent today. She is alert and oriented. Left arm in sling in what she states is a comfortable position. LUE DNVI intact. Labs Laboratory Tests Test 09/11/16 17:18 09/11/16 20:54 09/12/16 03:30 09/12/16 07:52 Glucose (Fingerstick) 234 mg/dL (70-99) 185 mg/dL (70-99) 88 mg/dL (70-99) White Blood Count 11.6 x10^3/uL (4.0-11.0) Red Blood Count 2.72 x10^6/uL (3.50-5.40) Hemoglobin 8.2 g/dL (12.0-15.5) Hematocrit 24.7 % (36.0-47.0) Mean Corpuscular Volume 91 fL (79-100) Mean Corpuscular Hemoglobin 30 pg (25-35) Mean Corpuscular Hemoglobin Concent 33 g/dL (31-37) Red Cell Distribution Width 16.0 % (11.5-14.5) Platelet Count 129 x10^3/uL (140-400) Sodium Level 139 mmol/L (136-145) Potassium Level 4.0 mmol/L (3.5-5.1) Chloride Level 103 mmol/L (98-107) Carbon Dioxide Level 27 mmol/L (21-32) Anion Gap 9 (6-14) Blood Urea Nitrogen 31 mg/dL (7-20) Creatinine 1.2 mg/dL (0.6-1.0) Estimated GFR (Cockcroft-Gault) 46.0 Glucose Level 140 mg/dL (70-99) Calcium Level 8.9 mg/dL (8.5-10.1) Test 09/12/16 11:25 09/12/16 16:51 09/12/16 21:14 09/13/16 08:12 Glucose (Fingerstick) 209 mg/dL (70-99) 209 mg/dL (70-99) 250 mg/dL (70-99) 100 mg/dL (70-99) Test 09/13/16 11:22 09/13/16 13:05 Glucose (Fingerstick) 147 mg/dL (70-99) White Blood Count 10.4 x10^3/uL (4.0-11.0) Red Blood Count 2.76 x10^6/uL (3.50-5.40) Hemoglobin 8.5 g/dL (12.0-15.5) Hematocrit 24.9 % (36.0-47.0) Mean Corpuscular Volume 90 fL (79-100) Mean Corpuscular Hemoglobin 31 pg (25-35) Mean Corpuscular Hemoglobin Concent 34 g/dL (31-37) Red Cell Distribution Width 15.5 % (11.5-14.5) Platelet Count 148 x10^3/uL (140-400) Sodium Level 141 mmol/L (136-145) Potassium Level 3.6 mmol/L (3.5-5.1) Chloride Level 105 mmol/L (98-107) Carbon Dioxide Level 28 mmol/L (21-32) Anion Gap 8 (6-14) Blood Urea Nitrogen 30 mg/dL (7-20) Creatinine 1.1 mg/dL (0.6-1.0) Estimated GFR (Cockcroft-Gault) 50.8 Glucose Level 173 mg/dL (70-99) Calcium Level 8.5 mg/dL (8.5-10.1) Magnesium Level 1.7 mg/dL (1.8-2.4) Laboratory Tests Test 09/12/16 16:51 09/12/16 21:14 09/13/16 08:12 09/13/16 11:22 Glucose (Fingerstick) 209 mg/dL (70-99) 250 mg/dL (70-99) 100 mg/dL (70-99) 147 mg/dL (70-99) Test 09/13/16 13:05 White Blood Count 10.4 x10^3/uL (4.0-11.0) Red Blood Count 2.76 x10^6/uL (3.50-5.40) Hemoglobin 8.5 g/dL (12.0-15.5) Hematocrit 24.9 % (36.0-47.0) Mean Corpuscular Volume 90 fL (79-100) Mean Corpuscular Hemoglobin 31 pg (25-35) Mean Corpuscular Hemoglobin Concent 34 g/dL (31-37) Red Cell Distribution Width 15.5 % (11.5-14.5) Platelet Count 148 x10^3/uL (140-400) Sodium Level 141 mmol/L (136-145) Potassium Level 3.6 mmol/L (3.5-5.1) Chloride Level 105 mmol/L (98-107) Carbon Dioxide Level 28 mmol/L (21-32) Anion Gap 8 (6-14) Blood Urea Nitrogen 30 mg/dL (7-20) Creatinine 1.1 mg/dL (0.6-1.0) Estimated GFR (Cockcroft-Gault) 50.8 Glucose Level 173 mg/dL (70-99) Calcium Level 8.5 mg/dL (8.5-10.1) Magnesium Level 1.7 mg/dL (1.8-2.4) Assessment Assessment Left proximal humerus fx Problems: (1) Closed fracture of left proximal humerus Plan Plan of Care PHYSICAL THERAPY/OT: LUE Light passive RANGE OF MOTION exercises as described in order. LUE NON-WEIGHT BEARING. Continue sling when sleeping and when up and about. May come out of sling while sitting comfortably, doing exercises or bathing. Pain: Patient states pain is well controlled. She is taking Oxycodone and Acetaminophen. She has started therapy. DVT Prophylaxis: Continue ambulation. Patient will likely be DCed to a rehab facility this weekend. PHYSICAL THERAPY script written and placed in chart for continued therapy after departure. Follow up in clinic as scheduled. Problem Qualifiers (1) Closed fracture of left proximal humerus: Encounter type: subsequent encounter Fracture healing: with routine healing TRISTON OLIVAS PAC Sep 13, 2016 14:07
--- NOTE | 2016-09-13 14:20 | PDOC3 ---
Discharge Summary* Date of Admission: Sep 09, 2016 Date of Discharge: Sep 14, 2016 Admitting Diagnosis Problems Medical Problems: 1. 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 ischemic cardiomyopathy, LVEF ~ 25% 3. chronic systolic and diastolic heart failure 4. hypertension 5. hyperlipidemia 6. DM, II, uncontrolled with peripheral vascular complications 7. left humeral fracture, present on admission 8. PAD with multiple previous procedures 9. COPD 10. obstructive sleep apnea, declines CPAP 11. protein calorie malnutrition 12. OA Problems: Final Diagnosis Problems Medical Problems: 1. 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 ischemic cardiomyopathy, LVEF ~ 25% 3. chronic systolic and diastolic heart failure 4. hypertension 5. hyperlipidemia 6. DM, II, uncontrolled with peripheral vascular complications 7. left humeral fracture, present on admission 8. PAD with multiple previous procedures 9. COPD 10. obstructive sleep apnea, declines CPAP 11. protein calorie malnutrition 12. OA CONSULTS 1. Dr. Power Conteh - Cardiology 2. Dr. Randee Valdez - Family Practice 3. Dr. Mirlande Pinto - Orthopedics Procedures 09/09/2016: 1. Coronary artery bypass grafting x 4 with saphenous vein graft to LAD, saphenous vein graft to OM, saphenous vein graft to PDA and into posterolateral branch; endoscopic vein harvest. 2. Repair of right subclavian vein injury. Brief Hospital Course Ms. Chandler is a 60 old female who presented to [facility] in July with profound hypoglycemia and found was found be in heart failure/pulmonary edema and underwent cardiac evaluation demonstrating multivessel disease with distal left main disease. Her TTE demonstrated aortic valvular disease which was later disproved on JENNIFER. 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 In the interim she fell and fractured her left humerus and was placed in a sling pending evaluation by Orthopedics. She was scheduled to 2016 after several delays. She underwent CABG X 4 as described above. Please see operative report for details of procedure. Fast track extubation. She has been mildly confused in the post-operative period and frequently unaware of her safety; though her post-operative course has been otherwise uncomplicated and without cardiac dysrhythmias. Evaluation by PT and OT have both recommended SNF stay for further therapy and she is agreeable. Orthopedics has placed her in a more restrictive splint/immobilizer for now and will follow. Will transfer to SNF when arrangements completed. Disposition/Orders: D/C to Another Facility CONDITION AT DISCHARGE: Stable Diet: 2 gr sodium, Cardiac, Consistent Carbohydrate (1800 jl) Scheduled Alprazolam (Xanax), 1 TAB PO BID Aspirin (Aspir-Low), 1 TAB PO DAILY, (Reported) Diclofenac Sodium (Voltaren), 1 GM TP QID, (Reported) Duloxetine Hcl (Cymbalta), 1 CAP PO BID, (Reported) Gabapentin (Gabapentin), 600 MG PO TID, (Reported) Insulin Aspart (Novolog Flexpen), 5 UNIT SQ TIDWMEALS Insulin Detemir (Levemir), 20 UNIT SQ HS Nicotine (NICODERM CQ 14mg), 1 PATCH TP DAILY, (Reported) Pantoprazole Sodium (Pantoprazole Sodium), 40 MG PO DAILYAC Pentoxifylline (Pentoxifylline), 400 MG PO BIDWMEALS, (Reported) Trazodone Hcl (Trazodone Hcl), 100 MG PO HS, (Reported) Varenicline Tartrate (Chantix), 1 MG PO BID, (Reported) Zolpidem Tartrate (Ambien), 1 TAB PO QHS, (Reported) Scheduled PRN Acetaminophen (Tylenol), 650 MG PO PRN Q6HRS PRN for PAIN, (Reported) Oxycodone Hcl (Oxycodone Hcl), 15 MG PO PRN Q6HRS PRN for PAIN, (Reported) FOLLOW UP APPOINTMENT: Dr. Stefany Hunter: 10/02/2016 @ [address] Conteh - per schedule Dr. Pinto - miriam schedule PCP 7 - 10 days after discharge Time Spent Total time spent with patient [] minutes for coordination of care, counseling, and education. MARTHA PEREIRA MOTOR REBUILDER Sep 13, 2016 14:20
--- NOTE | 2016-09-13 14:44 | RAD ---
AP chest radiograph 09/13/2016 Clinical indication: Post op CABG. Comparison: Chest radiograph September 12, 2016. Findings: Interval removal of right IJ central venous catheter. Prior median sternotomy and CABG. There is stable enlargement of the cardiac silhouette. There are small bilateral pleural effusions, partially loculated on the right. Patchy airspace opacities in both lung bases. No pneumothorax. Partial visualization of a displaced transverse fracture of the humeral neck with medial displacement of the distal fracture fragment. There are multiple calcifications adjacent to the fracture. Impression: 1. Improvement in small partially loculated right pleural effusion with stable small left pleural effusion. 2. Persistent cardiomegaly. 3. Unchanged patchy airspace opacities in both lung bases which may represent pulmonary edema, pneumonitis or infection. 4. Removal of right IJ central venous catheter. 5. Partially visualized left humeral neck fracture with numerous adjacent calcific densities, incompletely visualized. Please see separately dictated left humerus radiograph for additional details.
--- NOTE | 2016-09-13 15:31 | PDOC ---
Progress Note Subjective Subjective Doing well. Off O2. Normotensive and in SR. No complaints. Creat down to 1.1, Hb up to 8.5. Peripheral access obtained, R IJ cordis out ROS ROS No nausea No vomiting No pain No rash Vital Sign Vital Signs Vital Signs Date Time Temp Pulse Resp B/P (MAP) Pulse Ox O2 Delivery O2 Flow Rate FiO2 09/13/16 14:40 98.9 64 18 116/47 (70) 93 Room Air 98.9 09/13/16 12:08 2.0 Physical Exam PHYSICAL EXAM GENERAL: NAD, Alert HEENT: PERRL, OC/OP NECK: Supple, no JVD, no LN LUNGS: Clear HEART: S1S2, no gallop, no murmur ABD: Soft, NT, no organomegaly, no rebound EXT: No edema, no cyanosis RAISE MINER: Alert, oriented x 3, no focal neurologic deficit SKIN: No rash IV: ok Labs Lab Laboratory Tests Test 09/12/16 16:51 09/12/16 21:14 09/13/16 08:12 09/13/16 11:22 Glucose (Fingerstick) 209 mg/dL (70-99) 250 mg/dL (70-99) 100 mg/dL (70-99) 147 mg/dL (70-99) Test 09/13/16 13:05 White Blood Count 10.4 x10^3/uL (4.0-11.0) Red Blood Count 2.76 x10^6/uL (3.50-5.40) Hemoglobin 8.5 g/dL (12.0-15.5) Hematocrit 24.9 % (36.0-47.0) Mean Corpuscular Volume 90 fL (79-100) Mean Corpuscular Hemoglobin 31 pg (25-35) Mean Corpuscular Hemoglobin Concent 34 g/dL (31-37) Red Cell Distribution Width 15.5 % (11.5-14.5) Platelet Count 148 x10^3/uL (140-400) Sodium Level 141 mmol/L (136-145) Potassium Level 3.6 mmol/L (3.5-5.1) Chloride Level 105 mmol/L (98-107) Carbon Dioxide Level 28 mmol/L (21-32) Anion Gap 8 (6-14) Blood Urea Nitrogen 30 mg/dL (7-20) Creatinine 1.1 mg/dL (0.6-1.0) Estimated GFR (Cockcroft-Gault) 50.8 Glucose Level 173 mg/dL (70-99) Calcium Level 8.5 mg/dL (8.5-10.1) Magnesium Level 1.7 mg/dL (1.8-2.4) Objective Assessment POD#4, s/p CABG x 4 Doing well. Off O2. Normotensive and in SR. No complaints. Creat down to 1.1, Hb up to 8.5. Peripheral access obtained, R IJ cordis out Plan Plan of Care ASA, b remy, statin Amiodarone for AFib prophylaxis Ambulation, increased activity Awaiting placement at [facility], okay to send tomorrow if bed available Stop amiodarone prior to discharge ORIANA DIAMOND MD Sep 13, 2016 15:31
[2016-09-13] MEDS: traZODone 100 MG TABLET. PO SCH (21:22)
[2016-09-13] MEDS: INSULIN DETEMIR 300 UNITS/3 ML INSULN.PEN. SQ SCH (21:29)
[2016-09-14] VITALS (7 sets, daily range): BP systolic 90–180; BP diastolic 37–81
[2016-09-14] MEDS: oxyCODONE/APAP 5/325 1 TAB TABLET PO PRN (05:01)
[2016-09-14] MEDS: INSULIN ASPART 300 UNITS/3 ML INSULN.PEN SQ SCH ×6 (08:00→17:53)
[2016-09-14 08:38] LABS: HEMATOCRIT 26.2 % (36.0-47.0); HEMOGLOBIN 8.7 g/dL (12.0-15.5); RED BLOOD COUNT 2.83 x10^6/uL (3.50-5.40); RED CELL DISTRIBUTION WIDTH 15.4 % (11.5-14.5); WHITE BLOOD COUNT 11.3 x10^3/uL (4.0-11.0)
[2016-09-14] MEDS: SENNOSIDES/DOCUSATE 8.6/50MG TABLET. PO SCH ×3 (09:00→21:00)
[2016-09-14 09:03] LABS: GFR 56.7; POTASSIUM 3.7 mmol/L (3.5-5.1)
[2016-09-14] MEDS: DULoxetine HCL 30 MG CAPSULE.DR PO SCH ×2 (09:25→20:57)
[2016-09-14] MEDS: NICOTINE 14MG PATCH. TD SCH (09:25)
[2016-09-14] MEDS: AMIODARONE HCL 200 MG TABLET. PO SCH ×2 (09:25→20:58)
[2016-09-14] MEDS: PANTOPRAZOLE 40 MG TABLET.DR. PO SCH (09:26)
[2016-09-14] MEDS: ALPRAZolam 0.5 MG TABLET PO SCH ×2 (09:26→20:57)
[2016-09-14] MEDS: FERROUS SULFATE 325 MG TABLET. PO SCH ×3 (09:26→17:48)
[2016-09-14] MEDS: METOPROLOL TART IMMED RELEASE 25 MG TABLET. PO SCH ×2 (09:26→20:57)
[2016-09-14] MEDS: ASPIRIN ENTERIC COATED 325 MG TABLET.DR. PO SCH (09:26)
--- NOTE | 2016-09-14 10:52 | PDOC ---
GENERAL General: vss and afebrile. awake and alert and still mildly confused. chest decent breath sounds. heart regular. Hb 8.7 and WBC 11.3. SNU eval done and will transfer when all feel ok. Problems: VITAL SIGNS Vital Signs: Vital Signs Date Time Temp Pulse Resp B/P (MAP) Pulse Ox O2 Delivery O2 Flow Rate FiO2 09/14/16 09:26 69 109/52 09/14/16 08:03 Nasal Cannula 2.0 09/14/16 08:00 98.2 18 92 98.2 I & O I & O Intake and Output 09/14/16 06:59 Intake Total 1360 ml Balance 1360 ml Intake Oral 1360 ml # Voids 5 # Bowel Movements 2 ALLERGIES Allergies: Allergies Coded Allergies Type Severity Reaction Last Updated Verified hydrocodone Adverse Reaction Intermediate LOOPY 09/09/16 Yes MEDS Medications: Current Medications Medications (Trade) Dose Ordered Sig/Jo Start Time Stop Time Status Last Admin Dose Admin Acetaminophen (Tylenol) 650 mg Q6HRS 09/12/16 12:00 09/13/16 11:07 DC 09/13/16 06:17 650 MG Al Hydroxide/Mg Hydroxide (Mylanta Plus Xs) 30 ml PRN Q4HRS PRN 09/11/16 08:45 Albumin Human 250 ml @ 60 mls/hr PRN Q4HRS PRN 09/09/16 13:00 09/13/16 11:07 DC 09/09/16 19:13 60 MLS/HR Albuterol Sulfate (Ventolin Neb Soln) 2.5 mg PRN Q4HRS PRN 09/09/16 13:00 Alprazolam (Xanax) 0.5 mg BID 09/11/16 09:00 09/14/16 09:26 0.5 MG Aminocaproic Acid (Amicar) 5,000 mg STK-MED ONCE 09/09/16 13:13 09/09/16 13:14 DC Amiodarone HCl (Cordarone) 200 mg BID 09/10/16 09:00 09/14/16 09:25 200 MG Aspirin (Aspirin) 300 mg PRN DAILY PRN 09/09/16 13:00 09/10/16 08:18 DC Aspirin (Ecotrin) 325 mg DAILYWBKFT 09/10/16 08:00 09/14/16 09:26 325 MG Bisacodyl (Dulcolax Supp) 10 mg PRN DAILY PRN 09/09/16 13:00 Calcium Chloride 1,000 mg STK-MED ONCE 09/09/16 13:13 09/09/16 13:14 DC Cefazolin Sodium 1 gm/Sodium Chloride 50 ml @ 100 mls/hr Q8H 09/09/16 22:00 09/11/16 06:01 DC 09/11/16 05:25 100 MLS/HR Cefazolin Sodium/ Dextrose (Ancef 2gm Premix) 2 gm STK-MED ONCE 09/09/16 14:00 09/10/16 08:43 DC Cellulose 1 each STK-MED ONCE 09/09/16 06:58 09/09/16 06:59 DC 09/09/16 09:11 1 EACH Clevidipine 100 ml @ 0 mls/hr CONT PRN 09/09/16 13:00 09/10/16 08:16 DC 09/09/16 15:31 0 MLS/HR Dextrose 0 ml @ As Directed STK-MED ONCE 09/13/16 07:33 09/13/16 07:34 DC Dextrose (Dextrose 50%-Water Syringe) 12.5 gm PRN Q15MIN PRN 09/11/16 09:30 Duloxetine HCl (Cymbalta) 60 mg BID 09/11/16 09:00 09/14/16 09:25 60 MG Ephedrine Sulfate (Akovaz) 50 mg STK-MED ONCE 09/09/16 08:21 09/09/16 08:22 DC Epinephrine HCl (Adrenalin) 30 mg STK-MED ONCE 09/09/16 14:08 09/09/16 14:09 DC Epinephrine HCl 4 mg/Sodium Chloride 254 ml @ 0 mls/hr CONT PRN 09/09/16 14:15 09/10/16 08:16 DC Etomidate (Amidate) 20 mg STK-MED ONCE 09/09/16 06:53 09/09/16 06:54 DC Famotidine (Pepcid) 20 mg QHS 09/09/16 21:00 09/13/16 11:02 DC 09/12/16 21:22 20 MG Fentanyl Citrate (Fentanyl 2ml Vial) 50 mcg PRN Q5MIN PRN 09/09/16 07:00 09/10/16 06:59 DC Fentanyl Citrate (Fentanyl 5ml Vial) 250 mcg STK-MED ONCE 09/09/16 07:02 09/09/16 07:03 DC Ferrous Sulfate (Feosol) 325 mg BIDWMEALS 09/11/16 09:00 09/14/16 09:26 325 MG Glucose (Insta-Glucose) 15 gm PRN Q15MIN PRN 09/13/16 07:45 09/13/16 08:07 15 GM Heparin Sodium (Porcine) 30,000 unit STK-MED ONCE 09/09/16 13:13 09/09/16 13:14 DC Heparin Sodium (Porcine) 92616 unit/Ringer's Solution 1,020 ml @ 1,020 mls/hr 1X PERIOP ONCE 09/09/16 06:00 09/09/16 06:59 DC 09/09/16 09:11 Info 1 ea CONT PRN PRN 09/09/16 13:00 09/13/16 11:07 DC Insulin Aspart (NovoLOG) 2 units TIDAC 09/13/16 11:30 09/14/16 09:36 2 UNITS Insulin Detemir (Levemir) 15 units QHS 09/12/16 21:00 09/13/16 21:29 15 UNITS Insulin Human Regular 150 unit/ Sodium Chloride 151.5 ml @ 0 mls/hr CONT PRN PRN 09/09/16 13:00 09/11/16 08:41 DC 09/10/16 11:05 0.7 MLS/HR Isoflurane (Isoflurane) 90 ml STK-MED ONCE 09/09/16 14:08 09/09/16 14:09 DC Lidocaine HCl (Lidocaine Pf 2% Vial) 5 ml STK-MED ONCE 09/09/16 06:53 09/09/16 06:54 DC Lidocaine HCl (Xylocaine-Mpf 1% Vial) 5 ml STK-MED ONCE 09/09/16 13:13 09/09/16 13:14 DC Magnesium Hydroxide (Milk Of Magnesia) 2,400 mg PRN DAILY PRN 09/11/16 08:45 Magnesium Sulfate 5 gm STK-MED ONCE 09/09/16 13:13 09/09/16 13:14 DC Magnesium Sulfate/ Dextrose 100 ml @ 100 mls/hr PRN DAILY PRN 09/09/16 13:00 09/13/16 11:07 DC Mannitol 500 ml @ 12.5 mls/hr 1X ONCE 09/09/16 08:00 09/10/16 23:59 DC 09/09/16 08:00 12.5 MLS/HR Meperidine HCl (Demerol) 12.5 mg PRN Q15MIN PRN 09/09/16 13:00 09/10/16 08:19 DC Metoprolol Tartrate (Lopressor) 12.5 mg BID 09/10/16 09:00 UNV Midazolam HCl (Versed) 5 mg STK-MED ONCE 09/09/16 07:08 09/09/16 07:09 DC Milrinone Lactate/ Dextrose 100 ml @ 0 mls/hr CONT PRN 09/09/16 14:15 09/10/16 08:16 DC 09/09/16 19:42 7.4 MLS/HR Mineral Oil (Muri-Lube) 10 ml STK-MED ONCE 09/09/16 06:58 09/09/16 06:59 DC 09/09/16 12:29 10 ML Morphine Sulfate 2 mg PRN Q1HR PRN 09/09/16 13:00 09/13/16 11:07 DC 09/10/16 05:06 2 MG Nicotine (Nicoderm Cq 14mg) 1 patch DAILY 09/11/16 09:00 09/14/16 09:25 1 PATCH Nitroglycerin (Nitrostat) 0.4 mg PRN Q5MIN PRN 09/11/16 08:45 Nitroglycerin/ Dextrose 250 ml @ 0 mls/hr CONT PRN 09/09/16 15:45 09/10/16 08:16 DC 09/09/16 15:43 12 MLS/HR Norepinephrine Bitartrate 250 ml @ 0 mls/hr 1X ONCE 09/09/16 08:30 09/09/16 08:32 DC 09/09/16 08:30 0 MLS/HR Ondansetron HCl (Zofran) 4 mg PRN Q4HRS PRN 09/09/16 13:00 Oxycodone/ Acetaminophen (Percocet 5/325) 2 tab PRN Q4HRS PRN 09/09/16 13:00 09/12/16 03:40 2 TAB Pantoprazole Sodium (Protonix) 40 mg DAILYAC 09/11/16 09:00 09/14/16 09:26 40 MG Papaverine HCl 60 mg STK-MED ONCE 09/09/16 06:58 09/09/16 06:59 DC 09/09/16 09:11 60 MG Phenylephrine HCl (Will-Synephrine Inj) 10 mg STK-MED ONCE 09/09/16 06:53 09/09/16 06:54 DC Potassium Chloride 15 meq/ Sodium Bicarbonate 12.5 meq/Parenteral Electrolytes 520 ml @ 520 mls/hr 1X PERIOP ONCE 09/09/16 06:00 09/09/16 06:59 DC Potassium Chloride 70 meq/ Sodium Bicarbonate 12.5 meq/Lidocaine HCl 24 ml/Parenteral Electrolytes 571.5 ml @ 571.5 mls/ hr 1X PERIOP ONCE 09/09/16 06:00 09/09/16 06:59 DC 09/09/16 09:37 571.5 MLS/HR Potassium Chloride 50 ml @ 50 mls/hr Q1H 09/09/16 17:00 09/09/16 18:59 DC 09/09/16 17:32 50 MLS/HR Prochlorperazine Edisylate (Compazine) 5 mg PACU PRN PRN 09/09/16 07:00 09/10/16 06:59 DC Propofol 100 ml @ 0 mls/hr CONT PRN PRN 09/09/16 13:00 09/10/16 08:16 DC Protamine Sulfate 50 mg STK-MED ONCE 09/09/16 14:04 09/09/16 14:05 DC Ringer's Solution 1,000 ml @ 30 mls/hr Q24H 09/09/16 15:45 09/13/16 11:07 DC 09/11/16 17:30 30 MLS/HR Rocuronium [place] (Zemuron) 100 mg STK-MED ONCE 09/09/16 10:30 09/09/16 10:31 DC Senna/Docusate Sodium (Senna Plus) 1 tab BID 09/09/16 21:00 09/13/16 09:05 1 TAB Sodium Chloride 1,000 ml @ 0 mls/hr Q0M 09/09/16 13:00 09/09/16 17:18 DC Sodium Chloride (Normal Saline Flush) 3 ml PRN Q12HR PRN 09/09/16 13:00 Sodium Chloride (Sodium Chloride) 50 ml STK-MED ONCE 09/09/16 06:58 09/09/16 06:59 DC 09/09/16 09:11 50 ML Sufentanil Citrate (Sufenta) 250 mcg STK-MED ONCE 09/09/16 06:53 09/09/16 06:54 DC Throat Lozenges (Cepacol Sore Throat Lozenge) 1 al PRN Q2HRS PRN 09/11/16 08:45 Trazodone HCl (Desyrel) 100 mg HS 09/11/16 21:00 09/13/16 21:22 100 MG LAB Lab: Laboratory Tests Test 09/13/16 11:22 09/13/16 13:05 09/13/16 16:41 09/13/16 21:19 Glucose (Fingerstick) 147 mg/dL (70-99) 177 mg/dL (70-99) 206 mg/dL (70-99) White Blood Count 10.4 x10^3/uL (4.0-11.0) Red Blood Count 2.76 x10^6/uL (3.50-5.40) Hemoglobin 8.5 g/dL (12.0-15.5) Hematocrit 24.9 % (36.0-47.0) Mean Corpuscular Volume 90 fL (79-100) Mean Corpuscular Hemoglobin 31 pg (25-35) Mean Corpuscular Hemoglobin Concent 34 g/dL (31-37) Red Cell Distribution Width 15.5 % (11.5-14.5) Platelet Count 148 x10^3/uL (140-400) Sodium Level 141 mmol/L (136-145) Potassium Level 3.6 mmol/L (3.5-5.1) Chloride Level 105 mmol/L (98-107) Carbon Dioxide Level 28 mmol/L (21-32) Anion Gap 8 (6-14) Blood Urea Nitrogen 30 mg/dL (7-20) Creatinine 1.1 mg/dL (0.6-1.0) Estimated GFR (Cockcroft-Gault) 50.8 Glucose Level 173 mg/dL (70-99) Calcium Level 8.5 mg/dL (8.5-10.1) Magnesium Level 1.7 mg/dL (1.8-2.4) Test 09/14/16 07:38 09/14/16 08:25 Glucose (Fingerstick) 139 mg/dL (70-99) White Blood Count 11.3 x10^3/uL (4.0-11.0) Red Blood Count 2.83 x10^6/uL (3.50-5.40) Hemoglobin 8.7 g/dL (12.0-15.5) Hematocrit 26.2 % (36.0-47.0) Mean Corpuscular Volume 93 fL (79-100) Mean Corpuscular Hemoglobin 31 pg (25-35) Mean Corpuscular Hemoglobin Concent 33 g/dL (31-37) Red Cell Distribution Width 15.4 % (11.5-14.5) Platelet Count 175 x10^3/uL (140-400) Sodium Level 142 mmol/L (136-145) Potassium Level 3.7 mmol/L (3.5-5.1) Chloride Level 105 mmol/L (98-107) Carbon Dioxide Level 32 mmol/L (21-32) Anion Gap 5 (6-14) Blood Urea Nitrogen 25 mg/dL (7-20) Creatinine 1.0 mg/dL (0.6-1.0) Estimated GFR (Cockcroft-Gault) 56.7 Glucose Level 121 mg/dL (70-99) Calcium Level 8.0 mg/dL (8.5-10.1) Nutrition Consultation Dietary Evaluation: Recommendations by RD: Dietary education by RD, Increase Calorie Intake, Protein supplementation Comments: Diet education provided to pt on CABG- handout provided to use for home continue boost glucose control tid as po intake of meals remains minimal s/p surgery Expected Outcomes/Goals: to meet > 75% est nutr needs Malnutrition Findings: Body Fat Depletion (Non Severe: Mild Depletion Weight Status: Appropriate RINA MCNAIR MD Sep 14, 2016 10:52
--- NOTE | 2016-09-14 14:43 | PDOC ---
Progress Note Subjective Subjective Doing well. Normotensive and in SR. On room air. No complaints. Minimal bleeding from saphenous vein harvesting site, dressing applied ROS ROS No nausea No SOB No vomiting No pain No rash Vital Sign Vital Signs Vital Signs Date Time Temp Pulse Resp B/P (MAP) Pulse Ox O2 Delivery O2 Flow Rate FiO2 09/14/16 11:00 97.6 67 18 116/44 (68) 94 Nasal Cannula 97.6 09/14/16 08:03 2.0 Physical Exam PHYSICAL EXAM GENERAL: NAD, Alert HEENT: PERRL, OC/OP NECK: Supple, no JVD, no LN LUNGS: Clear HEART: S1S2, no gallop, no murmur ABD: Soft, NT, no organomegaly, no rebound EXT: No edema, no cyanosis KENO MANAGER: Alert, oriented x 3, no focal neurologic deficit SKIN: No rash IV: ok Labs Lab Laboratory Tests Test 09/13/16 16:41 09/13/16 21:19 09/14/16 07:38 09/14/16 08:25 Glucose (Fingerstick) 177 mg/dL (70-99) 206 mg/dL (70-99) 139 mg/dL (70-99) White Blood Count 11.3 x10^3/uL (4.0-11.0) Red Blood Count 2.83 x10^6/uL (3.50-5.40) Hemoglobin 8.7 g/dL (12.0-15.5) Hematocrit 26.2 % (36.0-47.0) Mean Corpuscular Volume 93 fL (79-100) Mean Corpuscular Hemoglobin 31 pg (25-35) Mean Corpuscular Hemoglobin Concent 33 g/dL (31-37) Red Cell Distribution Width 15.4 % (11.5-14.5) Platelet Count 175 x10^3/uL (140-400) Sodium Level 142 mmol/L (136-145) Potassium Level 3.7 mmol/L (3.5-5.1) Chloride Level 105 mmol/L (98-107) Carbon Dioxide Level 32 mmol/L (21-32) Anion Gap 5 (6-14) Blood Urea Nitrogen 25 mg/dL (7-20) Creatinine 1.0 mg/dL (0.6-1.0) Estimated GFR (Cockcroft-Gault) 56.7 Glucose Level 121 mg/dL (70-99) Calcium Level 8.0 mg/dL (8.5-10.1) Test 09/14/16 11:49 Glucose (Fingerstick) 230 mg/dL (70-99) Objective Assessment POD#5, s/p CABG x 4 Doing well. Normotensive and in SR. On room air. No complaints. Minimal bleeding from saphenous vein harvesting site, dressing applied Plan Plan of Care ASA, b remy, statin Amiodarone for AFib prophylaxis Ambulation, increased activity Awaiting placement at [facility], okay to send when bed is available Stop amiodarone prior to discharge ORIANA DIAMOND MD Sep 14, 2016 14:43
--- NOTE | 2016-09-14 16:46 | PDOC ---
PROGRESS NOTES Subjective Subjective Patient is less confused, ambulating better. Objective Objective Vital Signs Date Time Temp Pulse Resp B/P (MAP) Pulse Ox O2 Delivery O2 Flow Rate FiO2 09/14/16 15:00 98.1 70 19 90/37 (54) 93 Nasal Cannula 2.0 98.1 Intake and Output 09/14/16 07:00 Intake Total 1360 ml Balance 1360 ml Intake Oral 1360 ml # Voids 5 # Bowel Movements 2 Physical Exam Physical Exam No changes in cardiac exam Assessment Assessment Patient is slowly improving. I agree with present plan. Case discussed with cardiovascular surgery Comment Review of Relevant I have reviewed the following items sarahy (where applicable) has been applied. Labs Laboratory Tests Test 09/12/16 16:51 09/12/16 21:14 09/13/16 07:23 09/13/16 08:12 Glucose (Fingerstick) 209 mg/dL (70-99) 250 mg/dL (70-99) 35 mg/dL (70-99) 100 mg/dL (70-99) Test 09/13/16 11:22 09/13/16 13:05 09/13/16 16:41 09/13/16 21:19 Glucose (Fingerstick) 147 mg/dL (70-99) 177 mg/dL (70-99) 206 mg/dL (70-99) White Blood Count 10.4 x10^3/uL (4.0-11.0) Red Blood Count 2.76 x10^6/uL (3.50-5.40) Hemoglobin 8.5 g/dL (12.0-15.5) Hematocrit 24.9 % (36.0-47.0) Mean Corpuscular Volume 90 fL (79-100) Mean Corpuscular Hemoglobin 31 pg (25-35) Mean Corpuscular Hemoglobin Concent 34 g/dL (31-37) Red Cell Distribution Width 15.5 % (11.5-14.5) Platelet Count 148 x10^3/uL (140-400) Sodium Level 141 mmol/L (136-145) Potassium Level 3.6 mmol/L (3.5-5.1) Chloride Level 105 mmol/L (98-107) Carbon Dioxide Level 28 mmol/L (21-32) Anion Gap 8 (6-14) Blood Urea Nitrogen 30 mg/dL (7-20) Creatinine 1.1 mg/dL (0.6-1.0) Estimated GFR (Cockcroft-Gault) 50.8 Glucose Level 173 mg/dL (70-99) Calcium Level 8.5 mg/dL (8.5-10.1) Magnesium Level 1.7 mg/dL (1.8-2.4) Test 09/14/16 07:38 09/14/16 08:25 09/14/16 11:49 Glucose (Fingerstick) 139 mg/dL (70-99) 230 mg/dL (70-99) White Blood Count 11.3 x10^3/uL (4.0-11.0) Red Blood Count 2.83 x10^6/uL (3.50-5.40) Hemoglobin 8.7 g/dL (12.0-15.5) Hematocrit 26.2 % (36.0-47.0) Mean Corpuscular Volume 93 fL (79-100) Mean Corpuscular Hemoglobin 31 pg (25-35) Mean Corpuscular Hemoglobin Concent 33 g/dL (31-37) Red Cell Distribution Width 15.4 % (11.5-14.5) Platelet Count 175 x10^3/uL (140-400) Sodium Level 142 mmol/L (136-145) Potassium Level 3.7 mmol/L (3.5-5.1) Chloride Level 105 mmol/L (98-107) Carbon Dioxide Level 32 mmol/L (21-32) Anion Gap 5 (6-14) Blood Urea Nitrogen 25 mg/dL (7-20) Creatinine 1.0 mg/dL (0.6-1.0) Estimated GFR (Cockcroft-Gault) 56.7 Glucose Level 121 mg/dL (70-99) Calcium Level 8.0 mg/dL (8.5-10.1) Laboratory Tests Test 09/13/16 21:19 09/14/16 07:38 09/14/16 08:25 09/14/16 11:49 Glucose (Fingerstick) 206 mg/dL (70-99) 139 mg/dL (70-99) 230 mg/dL (70-99) White Blood Count 11.3 x10^3/uL (4.0-11.0) Red Blood Count 2.83 x10^6/uL (3.50-5.40) Hemoglobin 8.7 g/dL (12.0-15.5) Hematocrit 26.2 % (36.0-47.0) Mean Corpuscular Volume 93 fL (79-100) Mean Corpuscular Hemoglobin 31 pg (25-35) Mean Corpuscular Hemoglobin Concent 33 g/dL (31-37) Red Cell Distribution Width 15.4 % (11.5-14.5) Platelet Count 175 x10^3/uL (140-400) Sodium Level 142 mmol/L (136-145) Potassium Level 3.7 mmol/L (3.5-5.1) Chloride Level 105 mmol/L (98-107) Carbon Dioxide Level 32 mmol/L (21-32) Anion Gap 5 (6-14) Blood Urea Nitrogen 25 mg/dL (7-20) Creatinine 1.0 mg/dL (0.6-1.0) Estimated GFR (Cockcroft-Gault) 56.7 Glucose Level 121 mg/dL (70-99) Calcium Level 8.0 mg/dL (8.5-10.1) Medications Current Medications Ondansetron HCl (Zofran) 4 mg PRN Q6HRS PRN IV NAUSEA/VOMITING; Start 09/09/16 at 07:00; Stop 09/10/16 at 06:59; Status DC Fentanyl Citrate (Fentanyl 2ml Vial) 25 mcg PRN Q5MIN PRN IV MILD PAIN; Start 09/09/16 at 07:00; Stop 09/10/16 at 06:59; Status DC Fentanyl Citrate (Fentanyl 2ml Vial) 50 mcg PRN Q5MIN PRN IV MODERATE PAIN; Start 09/09/16 at 07:00; Stop 09/10/16 at 06:59; Status DC Ringer's Solution 1,000 ml @ 30 mls/hr Q24H IV Last administered on 09/09/16t 06:41; Start 09/09/16 at 07:00; Stop 09/09/16 at 18:59; Status DC Lidocaine HCl 2 ml PRN 1X PRN ID PRIOR TO IV START; Start 09/09/16 at 07:00; Stop 09/10/16 at 06:59; Status DC Prochlorperazine Edisylate (Compazine) 5 mg PACU PRN PRN IV NAUSEA, MRX1; Start 09/09/16 at 07:00; Stop 09/10/16 at 06:59; Status DC Potassium Chloride 70 meq/ Sodium Bicarbonate 12.5 meq/Lidocaine HCl 24 ml/ Parenteral Electrolytes 571.5 ml @ 571.5 mls/ hr 1X PERIOP ONCE IRR Last administered on 09/09/16 09:37; Start 09/09/16 at 06:00; Stop 09/09/16 at 06:59 ; Status DC Potassium Chloride 15 meq/ Sodium Bicarbonate 12.5 meq/Parenteral Electrolytes 520 ml @ 520 mls/hr 1X PERIOP ONCE IRR ; Start 09/09/16 at 06:00; Stop at 06:59; Status DC Heparin Sodium (Porcine) 76525 unit/Ringer's Solution 1,020 ml @ 1,020 mls/hr 1X PERIOP ONCE IRR Last administered on 09/09/16 09:11; Start 09/09/16 at 06: 00; Stop 09/09/16 at 06:59; Status DC Cefazolin Sodium/ Dextrose 50 ml @ 100 mls/hr 1X ONCE IV Last administered on 09/09/16 09:33; Start 09/09/16 at 06:00; Stop 09/09/16 at 06:29; Status DC Metoprolol Tartrate (Lopressor) 25 mg STK-MED ONCE .ROUTE ; Start 09/09/16 at 06 :19; Stop 09/09/16 at 06:20; Status DC Metoprolol Tartrate (Lopressor) 25 mg ONCE ONCE PO Last administered on 06:40; Start 09/09/16 at 06:45; Stop 09/09/16 at 06:46; Status DC Etomidate (Amidate) 20 mg STK-MED ONCE IV ; Start 09/09/16 at 06:53; Stop at 06:54; Status DC Phenylephrine HCl (Will-Synephrine Inj) 10 mg STK-MED ONCE .ROUTE ; Start at 06:53; Stop 09/09/16 at 06:54; Status DC Propofol 20 ml @ As Directed STK-MED ONCE IV ; Start 09/09/16 at 06:53; Stop at 06:54; Status DC Lidocaine HCl (Lidocaine Pf 2% Vial) 5 ml STK-MED ONCE .ROUTE ; Start 09/09/16 at 06:53; Stop 09/09/16 at 06:54; Status DC Aminocaproic Acid (Amicar) 5,000 mg STK-MED ONCE IV ; Start 09/09/16 at 06:53; Stop 09/09/16 at 06:54; Status DC Nitroglycerin/ Dextrose 0 ml @ As Directed STK-MED ONCE IV ; Start 09/09/16 at 06:53; Stop 09/09/16 at 06:54; Status DC Sufentanil Citrate (Sufenta) 250 mcg STK-MED ONCE .ROUTE ; Start 09/09/16 at 06: 53; Stop 09/09/16 at 06:54; Status DC Epinephrine HCl (Adrenalin) 1 mg STK-MED ONCE .ROUTE ; Start 09/09/16 at 06:54; Stop 09/09/16 at 06:55; Status DC Rocuronium [place] (Zemuron) 100 mg STK-MED ONCE .ROUTE ; Start 09/09/16 at 06: 54; Stop 09/09/16 at 06:55; Status DC Heparin Sodium (Porcine) 30,000 unit STK-MED ONCE .ROUTE ; Start 09/09/16 at 06: 55; Stop 09/09/16 at 06:56; Status DC Cellulose 1 each STK-MED ONCE .ROUTE Last administered on 09/09/16 09:11; Start 09/09/16 at 06:58; Stop 09/09/16 at 06:59; Status DC Papaverine HCl 60 mg STK-MED ONCE .ROUTE Last administered on 09/09/16 09:11; Start 09/09/16 at 06:58; Stop 09/09/16 at 06:59; Status DC Aspirin (Aspirin) 300 mg STK-MED ONCE .ROUTE Last administered on 09/09/16 14: 03; Start 09/09/16 at 06:58; Stop 09/09/16 at 06:59; Status DC Mineral Oil (Muri-Lube) 10 ml STK-MED ONCE MC Last administered on 09/09/16 12 :29; Start 09/09/16 at 06:58; Stop 09/09/16 at 06:59; Status DC Sodium Chloride (Sodium Chloride) 50 ml STK-MED ONCE IJ Last administered on 09:11; Start 09/09/16 at 06:58; Stop 09/09/16 at 06:59; Status DC Fentanyl Citrate (Fentanyl 5ml Vial) 250 mcg STK-MED ONCE .ROUTE ; Start at 07:02; Stop 09/09/16 at 07:03; Status DC Midazolam HCl (Versed) 5 mg STK-MED ONCE .ROUTE ; Start 09/09/16 at 07:08; Stop 09/09/16 at 07:09; Status DC Heparin Sodium (Porcine) 30,000 unit STK-MED ONCE .ROUTE ; Start 09/09/16 at 07: 15; Stop 09/09/16 at 07:16; Status DC Mannitol 500 ml @ 12.5 mls/hr 1X ONCE IV Last administered on 09/09/16 08:00 ; Start 09/09/16 at 08:00; Stop 09/10/16 at 23:59; Status DC Ephedrine Sulfate (Akovaz) 50 mg STK-MED ONCE .ROUTE ; Start 09/09/16 at 08:21; Stop 09/09/16 at 08:22; Status DC Norepinephrine Bitartrate 250 ml @ 0 mls/hr 1X ONCE IV Last administered on 08:30; Start 09/09/16 at 08:30; Stop 09/09/16 at 08:32; Status DC Milrinone Lactate/ Dextrose 100 ml @ 0 mls/hr 1X ONCE IV Last administered on 09/09/16 08:45; Start 09/09/16 at 08:45; Stop 09/09/16 at 08:46; Status DC Insulin Human Regular 150 unit/ Sodium Chloride 151.5 ml @ 0 mls/hr 1X ONCE IV Last administered on 09/09/16 15:35; Start 09/09/16 at 08:45; Stop at 08:46; Status DC Epinephrine HCl (Adrenalin) 30 mg STK-MED ONCE .ROUTE ; Start 09/09/16 at 09:34 ; Stop 09/09/16 at 09:35; Status DC Rocuronium [place] (Zemuron) 100 mg STK-MED ONCE .ROUTE ; Start 09/09/16 at 10: 30; Stop 09/09/16 at 10:31; Status DC Albumin Human 100 ml @ As Directed STK-MED ONCE IV ; Start 09/09/16 at 11:37; Stop 09/09/16 at 11:38; Status DC Albumin Human 100 ml @ As Directed STK-MED ONCE IV ; Start 09/09/16 at 11:37; Stop 09/09/16 at 11:38; Status DC Albumin Human 100 ml @ As Directed STK-MED ONCE IV ; Start 09/09/16 at 11:37; Stop 09/09/16 at 11:38; Status DC Albumin Human 100 ml @ As Directed STK-MED ONCE IV ; Start 09/09/16 at 11:37; Stop 09/09/16 at 11:38; Status DC Protamine Sulfate 50 mg STK-MED ONCE IV ; Start 09/09/16 at 13:09; Stop at 13:10; Status DC Lidocaine HCl (Xylocaine-Mpf 1% Vial) 5 ml STK-MED ONCE .ROUTE ; Start 09/09/16 at 13:13; Stop 09/09/16 at 13:14; Status DC Aminocaproic Acid (Amicar) 5,000 mg STK-MED ONCE IV ; Start 09/09/16 at 13:13; Stop 09/09/16 at 13:14; Status DC Magnesium Sulfate 5 gm STK-MED ONCE .ROUTE ; Start 09/09/16 at 13:13; Stop 09/09 at 13:14; Status DC Calcium Chloride 1,000 mg STK-MED ONCE IV ; Start 09/09/16 at 13:13; Stop at 13:14; Status DC Albumin Human 500 ml @ As Directed STK-MED ONCE IV ; Start 09/09/16 at 13:13; Stop 09/09/16 at 13:14; Status DC Heparin Sodium (Porcine) 30,000 unit STK-MED ONCE .ROUTE ; Start 09/09/16 at 13: 13; Stop 09/09/16 at 13:14; Status DC Sodium Chloride (Normal Saline Flush) 3 ml PRN Q12HR PRN IV AFTER MEDS AND BLOOD DRAWS; Start 09/09/16 at 13:00 Albumin Human 250 ml @ 60 mls/hr PRN Q4HRS PRN IV SEE I/O RECORD Last administered on 09/09/16 19:13; Start 09/09/16 at 13:00; Stop 09/13/16 at 11:07 ; Status DC Insulin Human Regular 150 unit/ Sodium Chloride 151.5 ml @ 0 mls/hr CONT PRN PRN IV SEE I/O RECORD Last administered on 09/10/16 11:05; Start 09/09/16 at 13: 00; Stop 09/11/16 at 08:41; Status DC Dextrose (Dextrose 50%-Water Syringe) 25 gm PRN Q15MIN PRN IV LOW BLOOD SUGAR; Start 09/09/16 at 13:00 Amiodarone HCl (Cordarone) 400 mg BID PO Last administered on 09/10/16 07:50; Start 09/10/16 at 09:00; Stop 09/10/16 at 09:00; Status DC Info 1 ea CONT PRN PRN MC SEE COMMENTS; Start 09/09/16 at 13:00; Stop 09/13/16 at 11:07; Status DC Info 1 ea CONT PRN PRN MC SEE COMMENTS; Start 09/09/16 at 13:00; Stop 09/13/16 at 11:07; Status DC Magnesium Sulfate/ Dextrose 100 ml @ 100 mls/hr PRN DAILY PRN IV FOR MAG < 2.2 ; Start 09/09/16 at 13:00; Stop 09/13/16 at 11:07; Status DC Ondansetron HCl (Zofran) 4 mg PRN Q4HRS PRN IV NAUSEA/VOMITING; Start 09/09/16 at 13:00 Morphine Sulfate 2 mg PRN Q1HR PRN IV PAIN Last administered on 09/10/16 05:06 ; Start 09/09/16 at 13:00; Stop 09/13/16 at 11:07; Status DC Acetaminophen (Tylenol) 650 mg PRN Q4HRS PRN PO MILD PAIN / TEMP; Start at 13:00 Meperidine HCl (Demerol) 12.5 mg PRN Q15MIN PRN IV SHIVERING; Start 09/09/16 at 13:00; Stop 09/10/16 at 08:19; Status DC Propofol 100 ml @ 0 mls/hr CONT PRN PRN IV POSTOP SEDATION UNTIL EXTUBATE; Start 09/09/16 at 13:00; Stop 09/10/16 at 08:16; Status DC Senna/Docusate Sodium (Senna Plus) 1 tab BID PO Last administered on 09/13/16 09:05; Start 09/09/16 at 21:00 Bisacodyl (Dulcolax Supp) 10 mg PRN DAILY PRN KS NO BOWEL MOVEMENT; Start 09/09 at 13:00 Aspirin (Ecotrin) 325 mg DAILYWBKFT PO Last administered on 09/14/16 09:26; Start 09/10/16 at 08:00 Aspirin (Aspirin) 300 mg PRN DAILY PRN KS IF UNABLE TO TAKE PO; Start 09/09/16 at 13:00; Stop 09/10/16 at 08:18; Status DC Albuterol Sulfate (Ventolin Neb Soln) 2.5 mg PRN Q4HRS PRN NEB SHORTNESS OF BREATH; Start 09/09/16 at 13:00 Metoprolol Tartrate (Lopressor) 25 mg BID PO Last administered on 09/10/16 07: 50; Start 09/10/16 at 09:00; Stop 09/10/16 at 09:00; Status DC Clevidipine 100 ml @ 0 mls/hr CONT PRN IV PER PROTOCOL Last administered on 15:31; Start 09/09/16 at 13:00; Stop 09/10/16 at 08:16; Status DC Oxycodone/ Acetaminophen (Percocet 5/325) 1 tab PRN Q4HRS PRN PO MILD PAIN Last administered on 09/14/16 05:01; Start 09/09/16 at 13:00 Oxycodone/ Acetaminophen (Percocet 5/325) 2 tab PRN Q4HRS PRN PO MODERATE PAIN , SEVERE PAIN Last administered on 09/12/16 03:40; Start 09/09/16 at 13:00 Cefazolin Sodium 1 gm/Sodium Chloride 50 ml @ 100 mls/hr Q8H IV ; Start at 15:00; Stop 09/09/16 at 15:00; Status DC Sodium Chloride 1,000 ml @ 0 mls/hr Q0M IV ; Start 09/09/16 at 13:00; Stop at 17:18; Status DC Famotidine (Pepcid) 20 mg QHS IVP Last administered on 09/12/16 21:22; Start at 21:00; Stop 09/13/16 at 11:02; Status DC Protamine Sulfate 50 mg STK-MED ONCE IV ; Start 09/09/16 at 14:04; Stop at 14:05; Status DC Cefazolin Sodium 1 gm/Sodium Chloride 50 ml @ 100 mls/hr Q8H IV ; Start at 15:00; Stop 09/09/16 at 16:19; Status DC Isoflurane (Isoflurane) 90 ml STK-MED ONCE IH ; Start 09/09/16 at 14:08; Stop at 14:09; Status DC Epinephrine HCl (Adrenalin) 30 mg STK-MED ONCE .ROUTE ; Start 09/09/16 at 14:08 ; Stop 09/09/16 at 14:09; Status DC Epinephrine HCl 4 mg/Sodium Chloride 254 ml @ 0 mls/hr CONT PRN IV SEE I/O RECORD; Start 09/09/16 at 14:15; Stop 09/10/16 at 08:16; Status DC Milrinone Lactate/ Dextrose 100 ml @ 0 mls/hr CONT PRN IV SEE I/O RECORD Last administered on 09/09/16 19:42; Start 09/09/16 at 14:15; Stop 09/10/16 at 08:16 ; Status DC Nitroglycerin/ Dextrose 250 ml @ As Directed STK-MED ONCE IV ; Start 09/09/16 at 14:59; Stop 09/09/16 at 15:00; Status DC Nitroglycerin/ Dextrose 250 ml @ 0 mls/hr CONT PRN IV SEE I/O RECORD Last administered on 09/09/16 15:43; Start 09/09/16 at 15:45; Stop 09/10/16 at 08:16 ; Status DC Ringer's Solution 1,000 ml @ 30 mls/hr Q24H IV Last administered on 09/11/16 17:30; Start 09/09/16 at 15:45; Stop 09/13/16 at 11:07; Status DC Potassium Chloride 50 ml @ 50 mls/hr Q1H IV Last administered on 09/09/16 17: 32; Start 09/09/16 at 17:00; Stop 09/09/16 at 18:59; Status DC Cefazolin Sodium 1 gm/Sodium Chloride 50 ml @ 100 mls/hr Q8H IV Last administered on 09/11/16 05:25; Start 09/09/16 at 22:00; Stop 09/11/16 at 06:01; Status DC Amiodarone HCl (Cordarone) 200 mg BID PO Last administered on 09/14/16 09:25; Start 09/10/16 at 09:00 Metoprolol Tartrate (Lopressor) 12.5 mg BID PO Last administered on 09/14/16 09 :26; Start 09/10/16 at 09:00 Metoprolol Tartrate (Lopressor) 12.5 mg BID PO ; Start 09/10/16 at 09:00; Status UNV Cefazolin Sodium/ Dextrose (Ancef 2gm Premix) 2 gm STK-MED ONCE IV ; Start 09/09 at 14:00; Stop 09/10/16 at 08:43; Status DC Ferrous Sulfate (Feosol) 325 mg BIDWMEALS PO Last administered on 09/14/16 09: 26; Start 09/11/16 at 09:00 Throat Lozenges (Cepacol Sore Throat Lozenge) 1 al PRN Q2HRS PRN PO SORE THROAT; Start 09/11/16 at 08:45 Al Hydroxide/Mg Hydroxide (Mylanta Plus Xs) 30 ml PRN Q4HRS PRN PO HEARTBURN / GAS; Start 09/11/16 at 08:45 Magnesium Hydroxide (Milk Of Magnesia) 2,400 mg PRN DAILY PRN PO CONSTIPATION; Start 09/11/16 at 08:45 Nitroglycerin (Nitrostat) 0.4 mg PRN Q5MIN PRN SL CHEST PAIN; Start 09/11/16 at 08:45 Alprazolam (Xanax) 0.5 mg BID PO Last administered on 09/14/16 09:26; Start 09/11/16 at 09:00 Nicotine (Nicoderm Cq 14mg) 1 patch DAILY TD Last administered on 09/14/16 09: 25; Start 09/11/16 at 09:00 Pantoprazole Sodium (Protonix) 40 mg DAILYAC PO Last administered on 09/14/16 09:26; Start 09/11/16 at 09:00 Trazodone HCl (Desyrel) 100 mg HS PO Last administered on 09/13/16 21:22; Start 09/11/16 at 21:00 Duloxetine HCl (Cymbalta) 60 mg BID PO Last administered on 09/14/16 09:25; Start 09/11/16 at 09:00 Insulin Detemir (Levemir) 10 units QHS SQ Last administered on 09/11/16 21:17; Start 09/11/16 at 21:00; Stop 09/12/16 at 14:16; Status DC Insulin Aspart (NovoLOG) 0-5 UNITS TIDWMEALS SQ Last administered on 09/13/16 18:02; Start 09/11/16 at 12:00 Dextrose (Dextrose 50%-Water Syringe) 12.5 gm PRN Q15MIN PRN IV SEE COMMENTS; Start 09/11/16 at 09:30 Insulin Detemir (Levemir) 4 units ONCE ONCE SQ Last administered on 09/11/16 10:19; Start 09/11/16 at 09:30; Stop 09/11/16 at 09:42; Status DC Acetaminophen (Tylenol) 650 mg Q6HRS PO Last administered on 09/13/16 06:17; Start 09/12/16 at 12:00; Stop 09/13/16 at 11:07; Status DC Insulin Detemir (Levemir) 15 units QHS SQ Last administered on 09/13/16 21:29; Start 09/12/16 at 21:00 Dextrose 0 ml @ As Directed STK-MED ONCE IV ; Start 09/13/16 at 07:33; Stop at 07:34; Status DC Glucose (Insta-Glucose) 15 gm PRN Q15MIN PRN PO LOW BLOOD SUGAR Last administered on 09/13/16 08:07; Start 09/13/16 at 07:45 Insulin Aspart (NovoLOG) 2 units TIDAC SQ Last administered on 09/14/16 13:21; Start 09/13/16 at 11:30 Active Scripts Active Senna-Time S Tablet (Sennosides/Docusate Sodium) 1 Each Tablet 1 Tab PO BID sig: one tab BID; hold for loose stools or diarrhea Oxycodone-Acetaminophen 5-325 (Oxycodone Hcl/Acetaminophen) 1 Each Tablet 1 Tab PO PRN Q4-6HRS PRN Metoprolol Tartrate 25 Mg Tablet 25 Mg PO BID SIG: ONE HALF TAB TWICE DAILY AT 0900 AND 2100 Aspirin Ec (Aspirin) 325 Mg Tablet. 325 Mg PO DAILYWBKFT 30 Days Xanax (Alprazolam) 0.5 Mg Tablet 1 Tab PO BID Novolog Flexpen (Insulin Aspart) 100 Unit/1 Ml Insuln.pen 5 Unit SQ TIDWMEALS 30 Days Levemir (Insulin Detemir) 100 Unit/1 Ml Vial 20 Unit SQ HS 30 Days Pantoprazole Sodium 40 Mg Tablet. 40 Mg PO DAILYAC 30 Days Reported Tylenol (Acetaminophen) 325 Mg Tablet 650 Mg PO PRN Q6HRS PRN Oxycodone Hcl 15 Mg Tablet 15 Mg PO PRN Q6HRS PRN Trazodone Hcl 50 Mg Tablet 100 Mg PO HS Chantix (Varenicline Tartrate) 1 Mg Tablet 1 Mg PO BID Cymbalta (Duloxetine Hcl) 60 Mg Capsule. 1 Cap PO BID Gabapentin 600 Mg Tablet 600 Mg PO TID Ambien (Zolpidem Tartrate) 10 Mg Tablet 1 Tab PO QHS NICODERM CQ 14mg (Nicotine) 1 Each Patch.td24 1 Patch TP DAILY Pentoxifylline 400 Mg Tablet.er 400 Mg PO BIDWMEALS Aspir-Low (Aspirin) 81 Mg Tablet. 1 Tab PO DAILY Voltaren (Diclofenac Sodium) 100 Gm Gel..gram. 1 Gm TP QID Vitals/I & O Vital Sign - Last 24 Hours 09/13/16 09/13/16 09/13/16 09/13/16 20:00 20:00 21:22 21:23 Temp 98.6 98.6 Pulse 84 84 Resp 16 20 B/P (MAP) 138/84 (102) 138/84 Pulse Ox 94 O2 Delivery Nasal Cannula Room Air Nasal Cannula O2 Flow Rate 2.0 2.0 09/13/16 09/14/16 09/14/16 09/14/16 21:23 00:00 04:00 05:01 Temp 99.0 98.5 99.0 98.5 Pulse 84 74 74 Resp 16 16 24 B/P (MAP) 138/84 113/72 (86) 92/62 (72) Pulse Ox 92 93 O2 Delivery Nasal Cannula Nasal Cannula Nasal Cannula O2 Flow Rate 2.0 2.0 2.0 09/14/16 09/14/16 09/14/16 09/14/16 06:01 08:00 08:03 09:25 Temp 98.2 98.2 Pulse 69 69 Resp 20 18 B/P (MAP) 109/52 (71) 109/52 Pulse Ox 92 O2 Delivery Nasal Cannula Nasal Cannula Nasal Cannula O2 Flow Rate 2.0 2.0 09/14/16 09/14/16 09/14/16 09:26 11:00 15:00 Temp 97.6 98.1 97.6 98.1 Pulse 69 67 70 Resp 18 19 B/P (MAP) 109/52 116/44 (68) 90/37 (54) Pulse Ox 94 93 O2 Delivery Nasal Cannula Nasal Cannula O2 Flow Rate 2.0 Intake and Output 09/13/16 09/13/16 09/14/16 15:00 23:00 07:00 Intake Total 720 ml 440 ml 200 ml Balance 720 ml 440 ml 200 ml Nutrition Consultation Dietary Evaluation: Recommendations by RD: Dietary education by RD, Increase Calorie Intake, Protein supplementation Comments: 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
[2016-09-14] MEDS: traZODone 100 MG TABLET. PO SCH (20:56)
[2016-09-14] MEDS: INSULIN DETEMIR 300 UNITS/3 ML INSULN.PEN. SQ SCH (21:11)
[2016-09-15] MEDS: oxyCODONE/APAP 5/325 1 TAB TABLET PO PRN ×6 (03:49→21:52)
[2016-09-15 04:06] VITALS: BP 125/64
[2016-09-15 08:00] VITALS: BP 155/70
[2016-09-15] MEDS: INSULIN ASPART 300 UNITS/3 ML INSULN.PEN SQ SCH ×6 (08:00→18:08)
[2016-09-15] MEDS: DULoxetine HCL 30 MG CAPSULE.DR PO SCH ×2 (08:32→21:51)
[2016-09-15] MEDS: ASPIRIN ENTERIC COATED 325 MG TABLET.DR. PO SCH (08:32)
[2016-09-15] MEDS: METOPROLOL TART IMMED RELEASE 25 MG TABLET. PO SCH ×2 (08:33→21:59)
[2016-09-15] MEDS: FERROUS SULFATE 325 MG TABLET. PO SCH (08:33)
[2016-09-15] MEDS: PANTOPRAZOLE 40 MG TABLET.DR. PO SCH (08:33)
[2016-09-15] MEDS: AMIODARONE HCL 200 MG TABLET. PO SCH ×2 (08:33→21:53)
[2016-09-15] MEDS: NICOTINE 14MG PATCH. TD SCH (08:34)
[2016-09-15] MEDS: SENNOSIDES/DOCUSATE 8.6/50MG TABLET. PO SCH ×2 (09:00→21:00)
--- NOTE | 2016-09-15 10:42 | PDOC ---
GENERAL General: vss and afebrile. sugars little high. mental status markedly improved over yesterday and can remember why she is here and what she had done. exam stable. to snu likely tomorrow. Problems: VITAL SIGNS Vital Signs: Vital Signs Date Time Temp Pulse Resp B/P (MAP) Pulse Ox O2 Delivery O2 Flow Rate FiO2 09/15/16 09:36 18 96 Nasal Cannula 09/15/16 08:34 2.0 09/15/16 08:33 73 155/70 09/15/16 08:00 98.2 98.2 I & O I & O Intake and Output 09/15/16 07:00 # Voids 6 ALLERGIES Allergies: Allergies Coded Allergies Type Severity Reaction Last Updated Verified hydrocodone Adverse Reaction Intermediate LOOPY 09/09/16 Yes MEDS Medications: Current Medications Medications (Trade) Dose Ordered Sig/Jo Start Time Stop Time Status Last Admin Dose Admin Acetaminophen (Tylenol) 650 mg Q6HRS 09/12/16 12:00 09/13/16 11:07 DC 09/13/16 06:17 650 MG Al Hydroxide/Mg Hydroxide (Mylanta Plus Xs) 30 ml PRN Q4HRS PRN 09/11/16 08:45 Albumin Human 250 ml @ 60 mls/hr PRN Q4HRS PRN 09/09/16 13:00 09/13/16 11:07 DC 09/09/16 19:13 60 MLS/HR Albuterol Sulfate (Ventolin Neb Soln) 2.5 mg PRN Q4HRS PRN 09/09/16 13:00 Alprazolam (Xanax) 0.5 mg BID 09/11/16 09:00 09/15/16 07:25 DC 09/14/16 20:57 0.5 MG Aminocaproic Acid (Amicar) 5,000 mg STK-MED ONCE 09/09/16 13:13 09/09/16 13:14 DC Amiodarone HCl (Cordarone) 200 mg BID 09/10/16 09:00 09/15/16 08:33 200 MG Aspirin (Aspirin) 300 mg PRN DAILY PRN 09/09/16 13:00 09/10/16 08:18 DC Aspirin (Ecotrin) 325 mg DAILYWBKFT 09/10/16 08:00 09/15/16 08:32 325 MG Bisacodyl (Dulcolax Supp) 10 mg PRN DAILY PRN 09/09/16 13:00 Calcium Chloride 1,000 mg STK-MED ONCE 09/09/16 13:13 09/09/16 13:14 DC Cefazolin Sodium 1 gm/Sodium Chloride 50 ml @ 100 mls/hr Q8H 09/09/16 22:00 09/11/16 06:01 DC 09/11/16 05:25 100 MLS/HR Cefazolin Sodium/ Dextrose (Ancef 2gm Premix) 2 gm STK-MED ONCE 09/09/16 14:00 09/10/16 08:43 DC Cellulose 1 each STK-MED ONCE 09/09/16 06:58 09/09/16 06:59 DC 09/09/16 09:11 1 EACH Clevidipine 100 ml @ 0 mls/hr CONT PRN 09/09/16 13:00 09/10/16 08:16 DC 09/09/16 15:31 0 MLS/HR Dextrose 0 ml @ As Directed STK-MED ONCE 09/13/16 07:33 09/13/16 07:34 DC Dextrose (Dextrose 50%-Water Syringe) 12.5 gm PRN Q15MIN PRN 09/11/16 09:30 Duloxetine HCl (Cymbalta) 60 mg BID 09/11/16 09:00 09/15/16 08:32 60 MG Ephedrine Sulfate (Akovaz) 50 mg STK-MED ONCE 09/09/16 08:21 09/09/16 08:22 DC Epinephrine HCl (Adrenalin) 30 mg STK-MED ONCE 09/09/16 14:08 09/09/16 14:09 DC Epinephrine HCl 4 mg/Sodium Chloride 254 ml @ 0 mls/hr CONT PRN 09/09/16 14:15 09/10/16 08:16 DC Etomidate (Amidate) 20 mg STK-MED ONCE 09/09/16 06:53 09/09/16 06:54 DC Famotidine (Pepcid) 20 mg QHS 09/09/16 21:00 09/13/16 11:02 DC 09/12/16 21:22 20 MG Fentanyl Citrate (Fentanyl 2ml Vial) 50 mcg PRN Q5MIN PRN 09/09/16 07:00 8/1/17 06:59 DC Fentanyl Citrate (Fentanyl 5ml Vial) 250 mcg STK-MED ONCE 09/09/16 07:02 09/09/16 07:03 DC Ferrous Sulfate (Feosol) 325 mg BIDWMEALS 09/11/16 09:00 09/15/16 08:33 325 MG Glucose (Insta-Glucose) 15 gm PRN Q15MIN PRN 09/13/16 07:45 09/13/16 08:07 15 GM Heparin Sodium (Porcine) 30,000 unit STK-MED ONCE 09/09/16 13:13 09/09/16 13:14 DC Heparin Sodium (Porcine) 28095 unit/Ringer's Solution 1,020 ml @ 1,020 mls/hr 1X PERIOP ONCE 09/09/16 06:00 09/09/16 06:59 DC 09/09/16 09:11 Info 1 ea CONT PRN PRN 09/09/16 13:00 09/13/16 11:07 DC Insulin Aspart (NovoLOG) 2 units TIDAC 09/13/16 11:30 09/15/16 08:38 2 UNITS Insulin Detemir (Levemir) 15 units QHS 09/12/16 21:00 09/14/16 21:11 15 UNITS Insulin Human Regular 150 unit/ Sodium Chloride 151.5 ml @ 0 mls/hr CONT PRN PRN 09/09/16 13:00 09/11/16 08:41 DC 09/10/16 11:05 0.7 MLS/HR Isoflurane (Isoflurane) 90 ml STK-MED ONCE 09/09/16 14:08 09/09/16 14:09 DC Lidocaine HCl (Lidocaine Pf 2% Vial) 5 ml STK-MED ONCE 09/09/16 06:53 09/09/16 06:54 DC Lidocaine HCl (Xylocaine-Mpf 1% Vial) 5 ml STK-MED ONCE 09/09/16 13:13 09/09/16 13:14 DC Magnesium Hydroxide (Milk Of Magnesia) 2,400 mg PRN DAILY PRN 09/11/16 08:45 Magnesium Sulfate 5 gm STK-MED ONCE 09/09/16 13:13 09/09/16 13:14 DC Magnesium Sulfate/ Dextrose 100 ml @ 100 mls/hr PRN DAILY PRN 09/09/16 13:00 09/13/16 11:07 DC Mannitol 500 ml @ 12.5 mls/hr 1X ONCE 09/09/16 08:00 09/10/16 23:59 DC 09/09/16 08:00 12.5 MLS/HR Meperidine HCl (Demerol) 12.5 mg PRN Q15MIN PRN 09/09/16 13:00 09/10/16 08:19 DC Metoprolol Tartrate (Lopressor) 12.5 mg BID 09/10/16 09:00 UNV Midazolam HCl (Versed) 5 mg STK-MED ONCE 09/09/16 07:08 09/09/16 07:09 DC Milrinone Lactate/ Dextrose 100 ml @ 0 mls/hr CONT PRN 09/09/16 14:15 09/10/16 08:16 DC 09/09/16 19:42 7.4 MLS/HR Mineral Oil (Muri-Lube) 10 ml STK-MED ONCE 09/09/16 06:58 09/09/16 06:59 DC 09/09/16 12:29 10 ML Morphine Sulfate 2 mg PRN Q1HR PRN 09/09/16 13:00 09/13/16 11:07 DC 09/10/16 05:06 2 MG Nicotine (Nicoderm Cq 14mg) 1 patch DAILY 09/11/16 09:00 09/15/16 08:34 1 PATCH Nitroglycerin (Nitrostat) 0.4 mg PRN Q5MIN PRN 09/11/16 08:45 Nitroglycerin/ Dextrose 250 ml @ 0 mls/hr CONT PRN 09/09/16 15:45 09/10/16 08:16 DC 09/09/16 15:43 12 MLS/HR Norepinephrine Bitartrate 250 ml @ 0 mls/hr 1X ONCE 09/09/16 08:30 09/09/16 08:32 DC 09/09/16 08:30 0 MLS/HR Ondansetron HCl (Zofran) 4 mg PRN Q4HRS PRN 09/09/16 13:00 Oxycodone/ Acetaminophen (Percocet 5/325) 2 tab PRN Q4HRS PRN 09/09/16 13:00 09/15/16 04:00 2 TAB Pantoprazole Sodium (Protonix) 40 mg DAILYAC 09/11/16 09:00 09/15/16 08:33 40 MG Papaverine HCl 60 mg STK-MED ONCE 09/09/16 06:58 09/09/16 06:59 DC 09/09/16 09:11 60 MG Phenylephrine HCl (Will-Synephrine Inj) 10 mg STK-MED ONCE 09/09/16 06:53 09/09/16 06:54 DC Potassium Chloride 15 meq/ Sodium Bicarbonate 12.5 meq/Parenteral Electrolytes 520 ml @ 520 mls/hr 1X PERIOP ONCE 09/09/16 06:00 09/09/16 06:59 DC Potassium Chloride 70 meq/ Sodium Bicarbonate 12.5 meq/Lidocaine HCl 24 ml/Parenteral Electrolytes 571.5 ml @ 571.5 mls/ hr 1X PERIOP ONCE 09/09/16 06:00 09/09/16 06:59 DC 09/09/16 09:37 571.5 MLS/HR Potassium Chloride 50 ml @ 50 mls/hr Q1H 09/09/16 17:00 09/09/16 18:59 DC 09/09/16 17:32 50 MLS/HR Prochlorperazine Edisylate (Compazine) 5 mg PACU PRN PRN 09/09/16 07:00 09/10/16 06:59 DC Propofol 100 ml @ 0 mls/hr CONT PRN PRN 09/09/16 13:00 09/10/16 08:16 DC Protamine Sulfate 50 mg STK-MED ONCE 09/09/16 14:04 09/09/16 14:05 DC Ringer's Solution 1,000 ml @ 30 mls/hr Q24H 09/09/16 15:45 09/13/16 11:07 DC 09/11/16 17:30 30 MLS/HR Rocuronium [place] (Zemuron) 100 mg STK-MED ONCE 09/09/16 10:30 09/09/16 10:31 DC Senna/Docusate Sodium (Senna Plus) 1 tab BID 09/09/16 21:00 09/13/16 09:05 1 TAB Sodium Chloride 1,000 ml @ 0 mls/hr Q0M 09/09/16 13:00 09/09/16 17:18 DC Sodium Chloride (Normal Saline Flush) 3 ml PRN Q12HR PRN 09/09/16 13:00 Sodium Chloride (Sodium Chloride) 50 ml STK-MED ONCE 09/09/16 06:58 09/09/16 06:59 DC 09/09/16 09:11 50 ML Sufentanil Citrate (Sufenta) 250 mcg STK-MED ONCE 09/09/16 06:53 09/09/16 06:54 DC Throat Lozenges (Cepacol Sore Throat Lozenge) 1 al PRN Q2HRS PRN 09/11/16 08:45 Trazodone HCl (Desyrel) 100 mg HS 09/11/16 21:00 09/14/16 20:56 100 MG LAB Lab: Laboratory Tests Test 09/14/16 11:49 09/14/16 16:15 09/14/16 20:39 09/15/16 07:49 Glucose (Fingerstick) 230 mg/dL (70-99) 228 mg/dL (70-99) 216 mg/dL (70-99) 142 mg/dL (70-99) Nutrition Consultation Dietary Evaluation: Recommendations by RD: Dietary education by RD, Increase Calorie Intake, Protein supplementation Comments: 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
[2016-09-15 12:00] VITALS: BP 107/53
[2016-09-15 16:00] VITALS: BP 115/43
--- NOTE | 2016-09-15 16:01 | PDOC ---
PROGRESS NOTES Subjective Subjective Pt resting Objective Objective Vital Signs Date Time Temp Pulse Resp B/P (MAP) Pulse Ox O2 Delivery O2 Flow Rate FiO2 09/15/16 15:34 92 Nasal Cannula 09/15/16 14:21 18 2.0 09/15/16 12:00 98.4 72 107/53 (71) 98.4 Intake and Output 09/15/16 07:00 # Voids 6 Physical Exam Physical Exam No changes in cardiac exam Assessment Assessment Pt improving post CABGS Agree with present plan Comment Review of Relevant I have reviewed the following items sarahy (where applicable) has been applied. Labs Laboratory Tests Test 09/13/16 16:41 09/13/16 21:19 09/14/16 07:38 09/14/16 08:25 Glucose (Fingerstick) 177 mg/dL (70-99) 206 mg/dL (70-99) 139 mg/dL (70-99) White Blood Count 11.3 x10^3/uL (4.0-11.0) Red Blood Count 2.83 x10^6/uL (3.50-5.40) Hemoglobin 8.7 g/dL (12.0-15.5) Hematocrit 26.2 % (36.0-47.0) Mean Corpuscular Volume 93 fL (79-100) Mean Corpuscular Hemoglobin 31 pg (25-35) Mean Corpuscular Hemoglobin Concent 33 g/dL (31-37) Red Cell Distribution Width 15.4 % (11.5-14.5) Platelet Count 175 x10^3/uL (140-400) Sodium Level 142 mmol/L (136-145) Potassium Level 3.7 mmol/L (3.5-5.1) Chloride Level 105 mmol/L (98-107) Carbon Dioxide Level 32 mmol/L (21-32) Anion Gap 5 (6-14) Blood Urea Nitrogen 25 mg/dL (7-20) Creatinine 1.0 mg/dL (0.6-1.0) Estimated GFR (Cockcroft-Gault) 56.7 Glucose Level 121 mg/dL (70-99) Calcium Level 8.0 mg/dL (8.5-10.1) Test 09/14/16 11:49 09/14/16 16:15 09/14/16 20:39 09/15/16 07:49 Glucose (Fingerstick) 230 mg/dL (70-99) 228 mg/dL (70-99) 216 mg/dL (70-99) 142 mg/dL (70-99) Test 09/15/16 11:11 Glucose (Fingerstick) 245 mg/dL (70-99) Laboratory Tests Test 09/14/16 16:15 09/14/16 20:39 09/15/16 07:49 09/15/16 11:11 Glucose (Fingerstick) 228 mg/dL (70-99) 216 mg/dL (70-99) 142 mg/dL (70-99) 245 mg/dL (70-99) Medications Current Medications Ondansetron HCl (Zofran) 4 mg PRN Q6HRS PRN IV NAUSEA/VOMITING; Start 09/09/16 at 07:00; Stop 09/10/16 at 06:59; Status DC Fentanyl Citrate (Fentanyl 2ml Vial) 25 mcg PRN Q5MIN PRN IV MILD PAIN; Start 09/09/16 at 07:00; Stop 09/10/16 at 06:59; Status DC Fentanyl Citrate (Fentanyl 2ml Vial) 50 mcg PRN Q5MIN PRN IV MODERATE PAIN; Start 09/09/16 at 07:00; Stop 09/10/16 at 06:59; Status DC Ringer's Solution 1,000 ml @ 30 mls/hr Q24H IV Last administered on 09/09/16 06:41; Start 09/09/16 at 07:00; Stop 09/09/16 at 18:59; Status DC Lidocaine HCl 2 ml PRN 1X PRN ID PRIOR TO IV START; Start 09/09/16 at 07:00; Stop 09/10/16 at 06:59; Status DC Prochlorperazine Edisylate (Compazine) 5 mg PACU PRN PRN IV NAUSEA, MRX1; Start 09/09/16 at 07:00; Stop 09/10/16 at 06:59; Status DC Potassium Chloride 70 meq/ Sodium Bicarbonate 12.5 meq/Lidocaine HCl 24 ml/ Parenteral Electrolytes 571.5 ml @ 571.5 mls/ hr 1X PERIOP ONCE IRR Last administered on 09/09/16 09:37; Start 09/09/16 at 06:00; Stop 09/09/16 at 06:59 ; Status DC Potassium Chloride 15 meq/ Sodium Bicarbonate 12.5 meq/Parenteral Electrolytes 520 ml @ 520 mls/hr 1X PERIOP ONCE IRR ; Start 09/09/16 at 06:00; Stop at 06:59; Status DC Heparin Sodium (Porcine) 77839 unit/Ringer's Solution 1,020 ml @ 1,020 mls/hr 1X PERIOP ONCE IRR Last administered on 09/09/16 09:11; Start 09/09/16 at 06: 00; Stop 09/09/16 at 06:59; Status DC Cefazolin Sodium/ Dextrose 50 ml @ 100 mls/hr 1X ONCE IV Last administered on 09/09/16 09:33; Start 09/09/16 at 06:00; Stop 09/09/16 at 06:29; Status DC Metoprolol Tartrate (Lopressor) 25 mg STK-MED ONCE .ROUTE ; Start 09/09/16 at 06 :19; Stop 09/09/16 at 06:20; Status DC Metoprolol Tartrate (Lopressor) 25 mg ONCE ONCE PO Last administered on 06:40; Start 09/09/16 at 06:45; Stop 09/09/16 at 06:46; Status DC Etomidate (Amidate) 20 mg STK-MED ONCE IV ; Start 09/09/16 at 06:53; Stop at 06:54; Status DC Phenylephrine HCl (Will-Synephrine Inj) 10 mg STK-MED ONCE .ROUTE ; Start at 06:53; Stop 09/09/16 at 06:54; Status DC Propofol 20 ml @ As Directed STK-MED ONCE IV ; Start 09/09/16 at 06:53; Stop at 06:54; Status DC Lidocaine HCl (Lidocaine Pf 2% Vial) 5 ml STK-MED ONCE .ROUTE ; Start 09/09/16 at 06:53; Stop 09/09/16 at 06:54; Status DC Aminocaproic Acid (Amicar) 5,000 mg STK-MED ONCE IV ; Start 09/09/16 at 06:53; Stop 09/09/16 at 06:54; Status DC Nitroglycerin/ Dextrose 0 ml @ As Directed STK-MED ONCE IV ; Start 09/09/16 at 06:53; Stop 09/09/16 at 06:54; Status DC Sufentanil Citrate (Sufenta) 250 mcg STK-MED ONCE .ROUTE ; Start 09/09/16 at 06: 53; Stop 09/09/16 at 06:54; Status DC Epinephrine HCl (Adrenalin) 1 mg STK-MED ONCE .ROUTE ; Start 09/09/16 at 06:54; Stop 09/09/16 at 06:55; Status DC Rocuronium Webb (Zemuron) 100 mg STK-MED ONCE .ROUTE ; Start 09/09/16 at 06: 54; Stop 09/09/16 at 06:55; Status DC Heparin Sodium (Porcine) 30,000 unit STK-MED ONCE .ROUTE ; Start 09/09/16 at 06: 55; Stop 09/09/16 at 06:56; Status DC Cellulose 1 each STK-MED ONCE .ROUTE Last administered on 09/09/16 09:11; Start 09/09/16 at 06:58; Stop 09/09/16 at 06:59; Status DC Papaverine HCl 60 mg STK-MED ONCE .ROUTE Last administered on 09/09/16 09:11; Start 09/09/16 at 06:58; Stop 09/09/16 at 06:59; Status DC Aspirin (Aspirin) 300 mg STK-MED ONCE .ROUTE Last administered on 09/09/16 14: 03; Start 09/09/16 at 06:58; Stop 09/09/16 at 06:59; Status DC Mineral Oil (Muri-Lube) 10 ml STK-MED ONCE MC Last administered on 09/09/16 12 :29; Start 09/09/16 at 06:58; Stop 09/09/16 at 06:59; Status DC Sodium Chloride (Sodium Chloride) 50 ml STK-MED ONCE IJ Last administered on 09:11; Start 09/09/16 at 06:58; Stop 09/09/16 at 06:59; Status DC Fentanyl Citrate (Fentanyl 5ml Vial) 250 mcg STK-MED ONCE .ROUTE ; Start at 07:02; Stop 09/09/16 at 07:03; Status DC Midazolam HCl (Versed) 5 mg STK-MED ONCE .ROUTE ; Start 09/09/16 at 07:08; Stop 09/09/16 at 07:09; Status DC Heparin Sodium (Porcine) 30,000 unit STK-MED ONCE .ROUTE ; Start 09/09/16 at 07: 15; Stop 09/09/16 at 07:16; Status DC Mannitol 500 ml @ 12.5 mls/hr 1X ONCE IV Last administered on 09/09/16 08:00 ; Start 09/09/16 at 08:00; Stop 09/10/16 at 23:59; Status DC Ephedrine Sulfate (Akovaz) 50 mg STK-MED ONCE .ROUTE ; Start 09/09/16 at 08:21; Stop 09/09/16 at 08:22; Status DC Norepinephrine Bitartrate 250 ml @ 0 mls/hr 1X ONCE IV Last administered on 08:30; Start 09/09/16 at 08:30; Stop 09/09/16 at 08:32; Status DC Milrinone Lactate/ Dextrose 100 ml @ 0 mls/hr 1X ONCE IV Last administered on 09/09/16 08:45; Start 09/09/16 at 08:45; Stop 09/09/16 at 08:46; Status DC Insulin Human Regular 150 unit/ Sodium Chloride 151.5 ml @ 0 mls/hr 1X ONCE IV Last administered on 09/09/16 15:35; Start 09/09/16 at 08:45; Stop at 08:46; Status DC Epinephrine HCl (Adrenalin) 30 mg STK-MED ONCE .ROUTE ; Start 09/09/16 at 09:34 ; Stop 09/09/16 at 09:35; Status DC Rocuronium Webb (Zemuron) 100 mg STK-MED ONCE .ROUTE ; Start 09/09/16 at 10: 30; Stop 09/09/16 at 10:31; Status DC Albumin Human 100 ml @ As Directed STK-MED ONCE IV ; Start 09/09/16 at 11:37; Stop 09/09/16 at 11:38; Status DC Albumin Human 100 ml @ As Directed STK-MED ONCE IV ; Start 09/09/16 at 11:37; Stop 09/09/16 at 11:38; Status DC Albumin Human 100 ml @ As Directed STK-MED ONCE IV ; Start 09/09/16 at 11:37; Stop 09/09/16 at 11:38; Status DC Albumin Human 100 ml @ As Directed STK-MED ONCE IV ; Start 09/09/16 at 11:37; Stop 09/09/16 at 11:38; Status DC Protamine Sulfate 50 mg STK-MED ONCE IV ; Start 09/09/16 at 13:09; Stop at 13:10; Status DC Lidocaine HCl (Xylocaine-Mpf 1% Vial) 5 ml STK-MED ONCE .ROUTE ; Start 09/09/16 at 13:13; Stop 09/09/16 at 13:14; Status DC Aminocaproic Acid (Amicar) 5,000 mg STK-MED ONCE IV ; Start 09/09/16 at 13:13; Stop 09/09/16 at 13:14; Status DC Magnesium Sulfate 5 gm STK-MED ONCE .ROUTE ; Start 09/09/16 at 13:13; Stop 09/09 at 13:14; Status DC Calcium Chloride 1,000 mg STK-MED ONCE IV ; Start 09/09/16 at 13:13; Stop at 13:14; Status DC Albumin Human 500 ml @ As Directed STK-MED ONCE IV ; Start 09/09/16 at 13:13; Stop 09/09/16 at 13:14; Status DC Heparin Sodium (Porcine) 30,000 unit STK-MED ONCE .ROUTE ; Start 09/09/16 at 13: 13; Stop 09/09/16 at 13:14; Status DC Sodium Chloride (Normal Saline Flush) 3 ml PRN Q12HR PRN IV AFTER MEDS AND BLOOD DRAWS; Start 09/09/16 at 13:00 Albumin Human 250 ml @ 60 mls/hr PRN Q4HRS PRN IV SEE I/O RECORD Last administered on 09/09/16t 19:13; Start 09/09/16 at 13:00; Stop 09/13/16 at 11:07 ; Status DC Insulin Human Regular 150 unit/ Sodium Chloride 151.5 ml @ 0 mls/hr CONT PRN PRN IV SEE I/O RECORD Last administered on 09/10/16t 11:05; Start 09/09/16 at 13: 00; Stop 09/11/16 at 08:41; Status DC Dextrose (Dextrose 50%-Water Syringe) 25 gm PRN Q15MIN PRN IV LOW BLOOD SUGAR; Start 09/09/16 at 13:00 Amiodarone HCl (Cordarone) 400 mg BID PO Last administered on 09/10/16 07:50; Start 09/10/16 at 09:00; Stop 09/10/16 at 09:00; Status DC Info 1 ea CONT PRN PRN MC SEE COMMENTS; Start 09/09/16 at 13:00; Stop 09/13/16 at 11:07; Status DC Info 1 ea CONT PRN PRN MC SEE COMMENTS; Start 09/09/16 at 13:00; Stop 09/13/16 at 11:07; Status DC Magnesium Sulfate/ Dextrose 100 ml @ 100 mls/hr PRN DAILY PRN IV FOR MAG < 2.2 ; Start 09/09/16 at 13:00; Stop 09/13/16 at 11:07; Status DC Ondansetron HCl (Zofran) 4 mg PRN Q4HRS PRN IV NAUSEA/VOMITING; Start 09/09/16 at 13:00 Morphine Sulfate 2 mg PRN Q1HR PRN IV PAIN Last administered on 09/10/16 05:06 ; Start 09/09/16 at 13:00; Stop 09/13/16 at 11:07; Status DC Acetaminophen (Tylenol) 650 mg PRN Q4HRS PRN PO MILD PAIN / TEMP; Start at 13:00 Meperidine HCl (Demerol) 12.5 mg PRN Q15MIN PRN IV SHIVERING; Start 09/09/16 at 13:00; Stop 09/10/16 at 08:19; Status DC Propofol 100 ml @ 0 mls/hr CONT PRN PRN IV POSTOP SEDATION UNTIL EXTUBATE; Start 09/09/16 at 13:00; Stop 09/10/16 at 08:16; Status DC Senna/Docusate Sodium (Senna Plus) 1 tab BID PO Last administered on 09/13/16 09:05; Start 09/09/16 at 21:00 Bisacodyl (Dulcolax Supp) 10 mg PRN DAILY PRN [place] NO BOWEL MOVEMENT; Start 09/09 at 13:00 Aspirin (Ecotrin) 325 mg DAILYWBKFT PO Last administered on 09/15/16 08:32; Start 09/10/16 at 08:00 Aspirin (Aspirin) 300 mg PRN DAILY PRN [place] IF UNABLE TO TAKE PO; Start 09/09/16 at 13:00; Stop 09/10/16 at 08:18; Status DC Albuterol Sulfate (Ventolin Neb Soln) 2.5 mg PRN Q4HRS PRN NEB SHORTNESS OF BREATH; Start 09/09/16 at 13:00 Metoprolol Tartrate (Lopressor) 25 mg BID PO Last administered on 09/10/16 07: 50; Start 09/10/16 at 09:00; Stop 09/10/16 at 09:00; Status DC Clevidipine 100 ml @ 0 mls/hr CONT PRN IV PER PROTOCOL Last administered on 15:31; Start 09/09/16 at 13:00; Stop 09/10/16 at 08:16; Status DC Oxycodone/ Acetaminophen (Percocet 5/325) 1 tab PRN Q4HRS PRN PO MILD PAIN Last administered on 09/15/16 14:21; Start 09/09/16 at 13:00 Oxycodone/ Acetaminophen (Percocet 5/325) 2 tab PRN Q4HRS PRN PO MODERATE PAIN , SEVERE PAIN Last administered on 09/15/16 04:00; Start 09/09/16 at 13:00 Cefazolin Sodium 1 gm/Sodium Chloride 50 ml @ 100 mls/hr Q8H IV ; Start at 15:00; Stop 09/09/16 at 15:00; Status DC Sodium Chloride 1,000 ml @ 0 mls/hr Q0M IV ; Start 09/09/16 at 13:00; Stop at 17:18; Status DC Famotidine (Pepcid) 20 mg QHS IVP Last administered on 09/12/16 21:22; Start at 21:00; Stop 09/13/16 at 11:02; Status DC Protamine Sulfate 50 mg STK-MED ONCE IV ; Start 09/09/16 at 14:04; Stop at 14:05; Status DC Cefazolin Sodium 1 gm/Sodium Chloride 50 ml @ 100 mls/hr Q8H IV ; Start at 15:00; Stop 09/09/16 at 16:19; Status DC Isoflurane (Isoflurane) 90 ml STK-MED ONCE IH ; Start 09/09/16 at 14:08; Stop at 14:09; Status DC Epinephrine HCl (Adrenalin) 30 mg STK-MED ONCE .ROUTE ; Start 09/09/16 at 14:08 ; Stop 09/09/16 at 14:09; Status DC Epinephrine HCl 4 mg/Sodium Chloride 254 ml @ 0 mls/hr CONT PRN IV SEE I/O RECORD; Start 09/09/16 at 14:15; Stop 09/10/16 at 08:16; Status DC Milrinone Lactate/ Dextrose 100 ml @ 0 mls/hr CONT PRN IV SEE I/O RECORD Last administered on 09/09/16 19:42; Start 09/09/16 at 14:15; Stop 09/10/16 at 08:16 ; Status DC Nitroglycerin/ Dextrose 250 ml @ As Directed STK-MED ONCE IV ; Start 09/09/16 at 14:59; Stop 09/09/16 at 15:00; Status DC Nitroglycerin/ Dextrose 250 ml @ 0 mls/hr CONT PRN IV SEE I/O RECORD Last administered on 09/09/16 15:43; Start 09/09/16 at 15:45; Stop 09/10/16 at 08:16 ; Status DC Ringer's Solution 1,000 ml @ 30 mls/hr Q24H IV Last administered on 09/11/16 17:30; Start 09/09/16 at 15:45; Stop 09/13/16 at 11:07; Status DC Potassium Chloride 50 ml @ 50 mls/hr Q1H IV Last administered on 09/09/16 17: 32; Start 09/09/16 at 17:00; Stop 09/09/16 at 18:59; Status DC Cefazolin Sodium 1 gm/Sodium Chloride 50 ml @ 100 mls/hr Q8H IV Last administered on 09/11/16 05:25; Start 09/09/16 at 22:00; Stop 09/11/16 at 06:01; Status DC Amiodarone HCl (Cordarone) 200 mg BID PO Last administered on 09/15/16 08:33; Start 09/10/16 at 09:00 Metoprolol Tartrate (Lopressor) 12.5 mg BID PO Last administered on 09/15/16 08 :33; Start 09/10/16 at 09:00 Metoprolol Tartrate (Lopressor) 12.5 mg BID PO ; Start 09/10/16 at 09:00; Status UNV Cefazolin Sodium/ Dextrose (Ancef 2gm Premix) 2 gm STK-MED ONCE IV ; Start 09/09 at 14:00; Stop 09/10/16 at 08:43; Status DC Ferrous Sulfate (Feosol) 325 mg BIDWMEALS PO Last administered on 09/15/16 08: 33; Start 09/11/16 at 09:00 Throat Lozenges (Cepacol Sore Throat Lozenge) 1 al PRN Q2HRS PRN PO SORE THROAT; Start 09/11/16 at 08:45 Al Hydroxide/Mg Hydroxide (Mylanta Plus Xs) 30 ml PRN Q4HRS PRN PO HEARTBURN / GAS; Start 09/11/16 at 08:45 Magnesium Hydroxide (Milk Of Magnesia) 2,400 mg PRN DAILY PRN PO CONSTIPATION; Start 09/11/16 at 08:45 Nitroglycerin (Nitrostat) 0.4 mg PRN Q5MIN PRN SL CHEST PAIN; Start 09/11/16 at 08:45 Alprazolam (Xanax) 0.5 mg BID PO Last administered on 09/14/16 20:57; Start 09/11/16 at 09:00; Stop 09/15/16 at 07:25; Status DC Nicotine (Nicoderm Cq 14mg) 1 patch DAILY TD Last administered on 09/15/16 08: 34; Start 09/11/16 at 09:00 Pantoprazole Sodium (Protonix) 40 mg DAILYAC PO Last administered on 09/15/16 08:33; Start 09/11/16 at 09:00 Trazodone HCl (Desyrel) 100 mg HS PO Last administered on 09/14/16 20:56; Start 09/11/16 at 21:00 Duloxetine HCl (Cymbalta) 60 mg BID PO Last administered on 09/15/16 08:32; Start 09/11/16 at 09:00 Insulin Detemir (Levemir) 10 units QHS SQ Last administered on 09/11/16 21:17; Start 09/11/16 at 21:00; Stop 09/12/16 at 14:16; Status DC Insulin Aspart (NovoLOG) 0-5 UNITS TIDWMEALS SQ Last administered on 09/15/16 14:24; Start 09/11/16 at 12:00 Dextrose (Dextrose 50%-Water Syringe) 12.5 gm PRN Q15MIN PRN IV SEE COMMENTS; Start 09/11/16 at 09:30 Insulin Detemir (Levemir) 4 units ONCE ONCE SQ Last administered on 09/11/16 10:19; Start 09/11/16 at 09:30; Stop 09/11/16 at 09:42; Status DC Acetaminophen (Tylenol) 650 mg Q6HRS PO Last administered on 09/13/16 06:17; Start 09/12/16 at 12:00; Stop 09/13/16 at 11:07; Status DC Insulin Detemir (Levemir) 15 units QHS SQ Last administered on 09/14/16 21:11; Start 09/12/16 at 21:00 Dextrose 0 ml @ As Directed STK-MED ONCE IV ; Start 09/13/16 at 07:33; Stop at 07:34; Status DC Glucose (Insta-Glucose) 15 gm PRN Q15MIN PRN PO LOW BLOOD SUGAR Last administered on 09/13/16 08:07; Start 09/13/16 at 07:45 Insulin Aspart (NovoLOG) 2 units TIDAC SQ Last administered on 09/15/16 14:24; Start 09/13/16 at 11:30 Active Scripts Active Senna-Time S Tablet (Sennosides/Docusate Sodium) 1 Each Tablet 1 Tab PO BID sig: one tab BID; hold for loose stools or diarrhea Oxycodone-Acetaminophen 5-325 (Oxycodone Hcl/Acetaminophen) 1 Each Tablet 1 Tab PO PRN Q4-6HRS PRN Metoprolol Tartrate 25 Mg Tablet 25 Mg PO BID SIG: ONE HALF TAB TWICE DAILY AT 0900 AND 2100 Aspirin Ec (Aspirin) 325 Mg Tablet.dr 325 Mg PO DAILYWBKFT 30 Days Xanax (Alprazolam) 0.5 Mg Tablet 1 Tab PO BID Novolog Flexpen (Insulin Aspart) 100 Unit/1 Ml Insuln.pen 5 Unit SQ TIDWMEALS 30 Days Levemir (Insulin Detemir) 100 Unit/1 Ml Vial 20 Unit SQ HS 30 Days Pantoprazole Sodium 40 Mg Tablet. 40 Mg PO DAILYAC 30 Days Reported Tylenol (Acetaminophen) 325 Mg Tablet 650 Mg PO PRN Q6HRS PRN Oxycodone Hcl 15 Mg Tablet 15 Mg PO PRN Q6HRS PRN Trazodone Hcl 50 Mg Tablet 100 Mg PO HS Chantix (Varenicline Tartrate) 1 Mg Tablet 1 Mg PO BID Cymbalta (Duloxetine Hcl) 60 Mg Capsule. 1 Cap PO BID Gabapentin 600 Mg Tablet 600 Mg PO TID Ambien (Zolpidem Tartrate) 10 Mg Tablet 1 Tab PO QHS NICODERM CQ 14mg (Nicotine) 1 Each Patch.td24 1 Patch TP DAILY Pentoxifylline 400 Mg Tablet.er 400 Mg PO BIDWMEALS Aspir-Low (Aspirin) 81 Mg Tablet.dr 1 Tab PO DAILY Voltaren (Diclofenac Sodium) 100 Gm Gel..gram. 1 Gm TP QID Vitals/I & O Vital Sign - Last 24 Hours 09/14/16 09/14/16 09/14/16 09/14/16 20:00 20:16 20:57 20:58 Temp 98.0 98.0 Pulse 78 78 78 Resp 26 B/P (MAP) 180/81 (114) 180/81 180/81 Pulse Ox 99 O2 Delivery Nasal Cannula Nasal Cannula O2 Flow Rate 2.0 2.0 09/14/16 09/15/16 09/15/16 09/15/16 23:20 04:00 04:06 05:00 Temp 98.4 98.4 98.4 98.4 Pulse 77 73 Resp 21 16 20 16 B/P (MAP) 168/76 (106) 125/64 (84) Pulse Ox 97 96 O2 Delivery Nasal Cannula Room Air Nasal Cannula Room Air O2 Flow Rate 2.0 2.0 09/15/16 09/15/16 09/15/16 09/15/16 07:43 08:00 08:33 08:33 Temp 98.2 98.2 Pulse 74 73 73 Resp 20 B/P (MAP) 155/70 (98) 155/70 155/70 Pulse Ox 89 O2 Delivery Nasal Cannula Room Air O2 Flow Rate 2.0 2.0 09/15/16 09/15/16 09/15/16 09/15/16 08:34 09:36 12:00 14:21 Temp 98.4 98.4 Pulse 72 Resp 18 18 20 18 B/P (MAP) 107/53 (71) Pulse Ox 96 88 92 O2 Delivery Nasal Cannula Room Air Nasal Cannula O2 Flow Rate 2.0 2.0 2.0 09/15/16 15:34 Pulse Ox 92 O2 Delivery Nasal Cannula Nutrition Consultation Dietary Evaluation: Recommendations by RD: Dietary education by RD, Increase Calorie Intake, Protein supplementation Comments: Diet education provided to pt on CABG- handout provided to use for home continue boost glucose control tid as po intake of meals remains minimal s/p surgery Expected Outcomes/Goals: to meet > 75% est nutr needs Malnutrition Findings: Body Fat Depletion (Non Severe: Mild Depletion Weight Status: Appropriate SAUNDRA FORTUNE MD Sep 15, 2016 16:01
[2016-09-15 20:32] VITALS: BP 132/56
[2016-09-15] MEDS: traZODone 100 MG TABLET. PO SCH (21:52)
[2016-09-15] MEDS: INSULIN DETEMIR 300 UNITS/3 ML INSULN.PEN. SQ SCH (22:03)
[2016-09-15 23:00] VITALS: BP 137/61
[2016-09-16 03:15] VITALS: BP 124/63
[2016-09-16 07:00] VITALS: BP 138/53
[2016-09-16] MEDS: FERROUS SULFATE 325 MG TABLET. PO SCH (08:30)
[2016-09-16] MEDS: DULoxetine HCL 30 MG CAPSULE.DR PO SCH (08:30)
[2016-09-16] MEDS: PANTOPRAZOLE 40 MG TABLET.DR. PO SCH (08:30)
[2016-09-16] MEDS: AMIODARONE HCL 200 MG TABLET. PO SCH (08:30)
[2016-09-16] MEDS: SENNOSIDES/DOCUSATE 8.6/50MG TABLET. PO SCH (08:30)
[2016-09-16] MEDS: NICOTINE 14MG PATCH. TD SCH (08:31)
[2016-09-16] MEDS: ASPIRIN ENTERIC COATED 325 MG TABLET.DR. PO SCH (08:35)
[2016-09-16] MEDS: METOPROLOL TART IMMED RELEASE 25 MG TABLET. PO SCH (08:36)
[2016-09-16] MEDS: INSULIN ASPART 300 UNITS/3 ML INSULN.PEN SQ SCH ×4 (08:51→12:00)
--- NOTE | 2016-09-16 09:17 | PDOC ---
PROGRESS NOTES Subjective Subjective Pt is feeling well. No other complaints at this time. Objective Objective Gen: Pt sitting in chair comfortably watching tv. Pt is pleasant and conversational. HEENT: atraumatic Neck: supple; no JVD Card: RRR; no new heart sounds Resp: CTAB; no rhonchi/rales/wheezes bilaterally Neuro: Pt is alert and aware; oriented to person, place and time. Vital Signs Date Time Temp Pulse Resp B/P (MAP) Pulse Ox O2 Delivery O2 Flow Rate FiO2 09/16/16 08:36 74 138/53 09/16/16 07:00 99.1 20 92 Room Air 99.1 09/15/16 22:52 2.0 Intake and Output 09/16/16 07:00 # Voids 3 Assessment Assessment Problems Medical Problems: (1) Ischemic cardiomyopathy Status: Chronic Pt healing well post CABG's. Continue with current plan. Comment Review of Relevant I have reviewed the following items sarahy (where applicable) has been applied. Labs Laboratory Tests Test 09/14/16 11:49 09/14/16 16:15 09/14/16 20:39 09/15/16 07:49 Glucose (Fingerstick) 230 mg/dL (70-99) 228 mg/dL (70-99) 216 mg/dL (70-99) 142 mg/dL (70-99) Test 09/15/16 11:11 09/15/16 15:59 09/15/16 20:59 09/16/16 08:06 Glucose (Fingerstick) 245 mg/dL (70-99) 365 mg/dL (70-99) 130 mg/dL (70-99) 184 mg/dL (70-99) Laboratory Tests Test 09/15/16 11:11 09/15/16 15:59 09/15/16 20:59 09/16/16 08:06 Glucose (Fingerstick) 245 mg/dL (70-99) 365 mg/dL (70-99) 130 mg/dL (70-99) 184 mg/dL (70-99) Medications Current Medications Ondansetron HCl (Zofran) 4 mg PRN Q6HRS PRN IV NAUSEA/VOMITING; Start 09/09/16 at 07:00; Stop 09/10/16 at 06:59; Status DC Fentanyl Citrate (Fentanyl 2ml Vial) 25 mcg PRN Q5MIN PRN IV MILD PAIN; Start 09/09/16 at 07:00; Stop 09/10/16 at 06:59; Status DC Fentanyl Citrate (Fentanyl 2ml Vial) 50 mcg PRN Q5MIN PRN IV MODERATE PAIN; Start 09/09/16 at 07:00; Stop 09/10/16 at 06:59; Status DC Ringer's Solution 1,000 ml @ 30 mls/hr Q24H IV Last administered on 09/09/16 06:41; Start 09/09/16 at 07:00; Stop 09/09/16 at 18:59; Status DC Lidocaine HCl 2 ml PRN 1X PRN ID PRIOR TO IV START; Start 09/09/16 at 07:00; Stop 09/10/16 at 06:59; Status DC Prochlorperazine Edisylate (Compazine) 5 mg PACU PRN PRN IV NAUSEA, MRX1; Start 09/09/16 at 07:00; Stop 09/10/16 at 06:59; Status DC Potassium Chloride 70 meq/ Sodium Bicarbonate 12.5 meq/Lidocaine HCl 24 ml/ Parenteral Electrolytes 571.5 ml @ 571.5 mls/ hr 1X PERIOP ONCE IRR Last administered on 09/09/16 09:37; Start 09/09/16 at 06:00; Stop 09/09/16 at 06:59 ; Status DC Potassium Chloride 15 meq/ Sodium Bicarbonate 12.5 meq/Parenteral Electrolytes 520 ml @ 520 mls/hr 1X PERIOP ONCE IRR ; Start 09/09/16 at 06:00; Stop at 06:59; Status DC Heparin Sodium (Porcine) 23082 unit/Ringer's Solution 1,020 ml @ 1,020 mls/hr 1X PERIOP ONCE IRR Last administered on 09/09/16 09:11; Start 09/09/16 at 06: 00; Stop 09/09/16 at 06:59; Status DC Cefazolin Sodium/ Dextrose 50 ml @ 100 mls/hr 1X ONCE IV Last administered on 09/09/16 09:33; Start 09/09/16 at 06:00; Stop 09/09/16 at 06:29; Status DC Metoprolol Tartrate (Lopressor) 25 mg STK-MED ONCE .ROUTE ; Start 09/09/16 at 06 :19; Stop 09/09/16 at 06:20; Status DC Metoprolol Tartrate (Lopressor) 25 mg ONCE ONCE PO Last administered on t 06:40; Start 09/09/16 at 06:45; Stop 09/09/16 at 06:46; Status DC Etomidate (Amidate) 20 mg STK-MED ONCE IV ; Start 09/09/16 at 06:53; Stop at 06:54; Status DC Phenylephrine HCl (Will-Synephrine Inj) 10 mg STK-MED ONCE .ROUTE ; Start at 06:53; Stop 09/09/16 at 06:54; Status DC Propofol 20 ml @ As Directed STK-MED ONCE IV ; Start 09/09/16 at 06:53; Stop at 06:54; Status DC Lidocaine HCl (Lidocaine Pf 2% Vial) 5 ml STK-MED ONCE .ROUTE ; Start 09/09/16 at 06:53; Stop 09/09/16 at 06:54; Status DC Aminocaproic Acid (Amicar) 5,000 mg STK-MED ONCE IV ; Start 09/09/16 at 06:53; Stop 09/09/16 at 06:54; Status DC Nitroglycerin/ Dextrose 0 ml @ As Directed STK-MED ONCE IV ; Start 09/09/16 at 06:53; Stop 09/09/16 at 06:54; Status DC Sufentanil Citrate (Sufenta) 250 mcg STK-MED ONCE .ROUTE ; Start 09/09/16 at 06: 53; Stop 09/09/16 at 06:54; Status DC Epinephrine HCl (Adrenalin) 1 mg STK-MED ONCE .ROUTE ; Start 09/09/16 at 06:54; Stop 09/09/16 at 06:55; Status DC Rocuronium Newberry (Zemuron) 100 mg STK-MED ONCE .ROUTE ; Start 09/09/16 at 06: 54; Stop 09/09/16 at 06:55; Status DC Heparin Sodium (Porcine) 30,000 unit STK-MED ONCE .ROUTE ; Start 09/09/16 at 06: 55; Stop 09/09/16 at 06:56; Status DC Cellulose 1 each STK-MED ONCE .ROUTE Last administered on 09/09/16 09:11; Start 09/09/16 at 06:58; Stop 09/09/16 at 06:59; Status DC Papaverine HCl 60 mg STK-MED ONCE .ROUTE Last administered on 09/09/16 09:11; Start 09/09/16 at 06:58; Stop 09/09/16 at 06:59; Status DC Aspirin (Aspirin) 300 mg STK-MED ONCE .ROUTE Last administered on 09/09/16 14: 03; Start 09/09/16 at 06:58; Stop 09/09/16 at 06:59; Status DC Mineral Oil (Muri-Lube) 10 ml STK-MED ONCE MC Last administered on 09/09/16 12 :29; Start 09/09/16 at 06:58; Stop 09/09/16 at 06:59; Status DC Sodium Chloride (Sodium Chloride) 50 ml STK-MED ONCE IJ Last administered on 09:11; Start 09/09/16 at 06:58; Stop 09/09/16 at 06:59; Status DC Fentanyl Citrate (Fentanyl 5ml Vial) 250 mcg STK-MED ONCE .ROUTE ; Start at 07:02; Stop 09/09/16 at 07:03; Status DC Midazolam HCl (Versed) 5 mg STK-MED ONCE .ROUTE ; Start 09/09/16 at 07:08; Stop 09/09/16 at 07:09; Status DC Heparin Sodium (Porcine) 30,000 unit STK-MED ONCE .ROUTE ; Start 09/09/16 at 07: 15; Stop 09/09/16 at 07:16; Status DC Mannitol 500 ml @ 12.5 mls/hr 1X ONCE IV Last administered on 09/09/16 08:00 ; Start 09/09/16 at 08:00; Stop 09/10/16 at 23:59; Status DC Ephedrine Sulfate (Akovaz) 50 mg STK-MED ONCE .ROUTE ; Start 09/09/16 at 08:21; Stop 09/09/16 at 08:22; Status DC Norepinephrine Bitartrate 250 ml @ 0 mls/hr 1X ONCE IV Last administered on 08:30; Start 09/09/16 at 08:30; Stop 09/09/16 at 08:32; Status DC Milrinone Lactate/ Dextrose 100 ml @ 0 mls/hr 1X ONCE IV Last administered on 09/09/16t 08:45; Start 09/09/16 at 08:45; Stop 09/09/16 at 08:46; Status DC Insulin Human Regular 150 unit/ Sodium Chloride 151.5 ml @ 0 mls/hr 1X ONCE IV Last administered on 09/09/16t 15:35; Start 09/09/16 at 08:45; Stop at 08:46; Status DC Epinephrine HCl (Adrenalin) 30 mg STK-MED ONCE .ROUTE ; Start 09/09/16 at 09:34 ; Stop 09/09/16 at 09:35; Status DC Rocuronium Newberry (Zemuron) 100 mg STK-MED ONCE .ROUTE ; Start 09/09/16 at 10: 30; Stop 09/09/16 at 10:31; Status DC Albumin Human 100 ml @ As Directed STK-MED ONCE IV ; Start 09/09/16 at 11:37; Stop 09/09/16 at 11:38; Status DC Albumin Human 100 ml @ As Directed STK-MED ONCE IV ; Start 09/09/16 at 11:37; Stop 09/09/16 at 11:38; Status DC Albumin Human 100 ml @ As Directed STK-MED ONCE IV ; Start 09/09/16 at 11:37; Stop 09/09/16 at 11:38; Status DC Albumin Human 100 ml @ As Directed STK-MED ONCE IV ; Start 09/09/16 at 11:37; Stop 09/09/16 at 11:38; Status DC Protamine Sulfate 50 mg STK-MED ONCE IV ; Start 09/09/16 at 13:09; Stop at 13:10; Status DC Lidocaine HCl (Xylocaine-Mpf 1% Vial) 5 ml STK-MED ONCE .ROUTE ; Start 09/09/16 at 13:13; Stop 09/09/16 at 13:14; Status DC Aminocaproic Acid (Amicar) 5,000 mg STK-MED ONCE IV ; Start 09/09/16 at 13:13; Stop 09/09/16 at 13:14; Status DC Magnesium Sulfate 5 gm STK-MED ONCE .ROUTE ; Start 09/09/16 at 13:13; Stop 09/09 at 13:14; Status DC Calcium Chloride 1,000 mg STK-MED ONCE IV ; Start 09/09/16 at 13:13; Stop at 13:14; Status DC Albumin Human 500 ml @ As Directed STK-MED ONCE IV ; Start 09/09/16 at 13:13; Stop 09/09/16 at 13:14; Status DC Heparin Sodium (Porcine) 30,000 unit STK-MED ONCE .ROUTE ; Start 09/09/16 at 13: 13; Stop 09/09/16 at 13:14; Status DC Sodium Chloride (Normal Saline Flush) 3 ml PRN Q12HR PRN IV AFTER MEDS AND BLOOD DRAWS; Start 09/09/16 at 13:00 Albumin Human 250 ml @ 60 mls/hr PRN Q4HRS PRN IV SEE I/O RECORD Last administered on 09/09/16 19:13; Start 09/09/16 at 13:00; Stop 09/13/16 at 11:07 ; Status DC Insulin Human Regular 150 unit/ Sodium Chloride 151.5 ml @ 0 mls/hr CONT PRN PRN IV SEE I/O RECORD Last administered on 09/10/16 11:05; Start 09/09/16 at 13: 00; Stop 09/11/16 at 08:41; Status DC Dextrose (Dextrose 50%-Water Syringe) 25 gm PRN Q15MIN PRN IV LOW BLOOD SUGAR; Start 09/09/16 at 13:00 Amiodarone HCl (Cordarone) 400 mg BID PO Last administered on 09/10/16 07:50; Start 09/10/16 at 09:00; Stop 09/10/16 at 09:00; Status DC Info 1 ea CONT PRN PRN MC SEE COMMENTS; Start 09/09/16 at 13:00; Stop 09/13/16 at 11:07; Status DC Info 1 ea CONT PRN PRN MC SEE COMMENTS; Start 09/09/16 at 13:00; Stop 09/13/16 at 11:07; Status DC Magnesium Sulfate/ Dextrose 100 ml @ 100 mls/hr PRN DAILY PRN IV FOR MAG < 2.2 ; Start 09/09/16 at 13:00; Stop 09/13/16 at 11:07; Status DC Ondansetron HCl (Zofran) 4 mg PRN Q4HRS PRN IV NAUSEA/VOMITING; Start 09/09/16 at 13:00 Morphine Sulfate 2 mg PRN Q1HR PRN IV PAIN Last administered on 09/10/16 05:06 ; Start 09/09/16 at 13:00; Stop 09/13/16 at 11:07; Status DC Acetaminophen (Tylenol) 650 mg PRN Q4HRS PRN PO MILD PAIN / TEMP; Start at 13:00 Meperidine HCl (Demerol) 12.5 mg PRN Q15MIN PRN IV SHIVERING; Start 09/09/16 at 13:00; Stop 09/10/16 at 08:19; Status DC Propofol 100 ml @ 0 mls/hr CONT PRN PRN IV POSTOP SEDATION UNTIL EXTUBATE; Start 09/09/16 at 13:00; Stop 09/10/16 at 08:16; Status DC Senna/Docusate Sodium (Senna Plus) 1 tab BID PO Last administered on 09/16/16 08:30; Start 09/09/16 at 21:00 Bisacodyl (Dulcolax Supp) [address] NO BOWEL MOVEMENT; Start 09/09 at 13:00 Aspirin (Ecotrin) 325 mg DAILYWBKFT PO Last administered on 09/16/16 08:35; Start 09/10/16 at 08:00 Aspirin (Aspirin) [address] IF UNABLE TO TAKE PO; Start 09/09/16 at 13:00; Stop 09/10/16 at 08:18; Status DC Albuterol Sulfate (Ventolin Neb Soln) 2.5 mg PRN Q4HRS PRN NEB SHORTNESS OF BREATH; Start 09/09/16 at 13:00 Metoprolol Tartrate (Lopressor) 25 mg BID PO Last administered on 09/10/16 07: 50; Start 09/10/16 at 09:00; Stop 09/10/16 at 09:00; Status DC Clevidipine 100 ml @ 0 mls/hr CONT PRN IV PER PROTOCOL Last administered on 15:31; Start 09/09/16 at 13:00; Stop 09/10/16 at 08:16; Status DC Oxycodone/ Acetaminophen (Percocet 5/325) 1 tab PRN Q4HRS PRN PO MILD PAIN Last administered on 09/15/16 21:52; Start 09/09/16 at 13:00 Oxycodone/ Acetaminophen (Percocet 5/325) 2 tab PRN Q4HRS PRN PO MODERATE PAIN , SEVERE PAIN Last administered on 09/15/16 04:00; Start 09/09/16 at 13:00 Cefazolin Sodium 1 gm/Sodium Chloride 50 ml @ 100 mls/hr Q8H IV ; Start at 15:00; Stop 09/09/16 at 15:00; Status DC Sodium Chloride 1,000 ml @ 0 mls/hr Q0M IV ; Start 09/09/16 at 13:00; Stop at 17:18; Status DC Famotidine (Pepcid) 20 mg QHS IVP Last administered on 09/12/16 21:22; Start at 21:00; Stop 09/13/16 at 11:02; Status DC Protamine Sulfate 50 mg STK-MED ONCE IV ; Start 09/09/16 at 14:04; Stop at 14:05; Status DC Cefazolin Sodium 1 gm/Sodium Chloride 50 ml @ 100 mls/hr Q8H IV ; Start at 15:00; Stop 09/09/16 at 16:19; Status DC Isoflurane (Isoflurane) 90 ml STK-MED ONCE IH ; Start 09/09/16 at 14:08; Stop at 14:09; Status DC Epinephrine HCl (Adrenalin) 30 mg STK-MED ONCE .ROUTE ; Start 09/09/16 at 14:08 ; Stop 09/09/16 at 14:09; Status DC Epinephrine HCl 4 mg/Sodium Chloride 254 ml @ 0 mls/hr CONT PRN IV SEE I/O RECORD; Start 09/09/16 at 14:15; Stop 09/10/16 at 08:16; Status DC Milrinone Lactate/ Dextrose 100 ml @ 0 mls/hr CONT PRN IV SEE I/O RECORD Last administered on 09/09/16 19:42; Start 09/09/16 at 14:15; Stop 09/10/16 at 08:16 ; Status DC Nitroglycerin/ Dextrose 250 ml @ As Directed STK-MED ONCE IV ; Start 09/09/16 at 14:59; Stop 09/09/16 at 15:00; Status DC Nitroglycerin/ Dextrose 250 ml @ 0 mls/hr CONT PRN IV SEE I/O RECORD Last administered on 09/09/16 15:43; Start 09/09/16 at 15:45; Stop 09/10/16 at 08:16 ; Status DC Ringer's Solution 1,000 ml @ 30 mls/hr Q24H IV Last administered on 09/11/16 17:30; Start 09/09/16 at 15:45; Stop 09/13/16 at 11:07; Status DC Potassium Chloride 50 ml @ 50 mls/hr Q1H IV Last administered on 09/09/16 17: 32; Start 09/09/16 at 17:00; Stop 09/09/16 at 18:59; Status DC Cefazolin Sodium 1 gm/Sodium Chloride 50 ml @ 100 mls/hr Q8H IV Last administered on 09/11/16 05:25; Start 09/09/16 at 22:00; Stop 09/11/16 at 06:01; Status DC Amiodarone HCl (Cordarone) 200 mg BID PO Last administered on 09/16/16 08:30; Start 09/10/16 at 09:00 Metoprolol Tartrate (Lopressor) 12.5 mg BID PO Last administered on 09/16/16 08 :36; Start 09/10/16 at 09:00 Metoprolol Tartrate (Lopressor) 12.5 mg BID PO ; Start 09/10/16 at 09:00; Status UNV Cefazolin Sodium/ Dextrose (Ancef 2gm Premix) 2 gm STK-MED ONCE IV ; Start 09/09 at 14:00; Stop 09/10/16 at 08:43; Status DC Ferrous Sulfate (Feosol) 325 mg BIDWMEALS PO Last administered on 09/16/16 08: 30; Start 09/11/16 at 09:00 Throat Lozenges (Cepacol Sore Throat Lozenge) 1 al PRN Q2HRS PRN PO SORE THROAT; Start 09/11/16 at 08:45 Al Hydroxide/Mg Hydroxide (Mylanta Plus Xs) 30 ml PRN Q4HRS PRN PO HEARTBURN / GAS; Start 09/11/16 at 08:45 Magnesium Hydroxide (Milk Of Magnesia) 2,400 mg PRN DAILY PRN PO CONSTIPATION; Start 09/11/16 at 08:45 Nitroglycerin (Nitrostat) 0.4 mg PRN Q5MIN PRN SL CHEST PAIN; Start 09/11/16 at 08:45 Alprazolam (Xanax) 0.5 mg BID PO Last administered on 09/14/16 20:57; Start 09/11/16 at 09:00; Stop 09/15/16 at 07:25; Status DC Nicotine (Nicoderm Cq 14mg) 1 patch DAILY TD Last administered on 09/16/16 08: 31; Start 09/11/16 at 09:00 Pantoprazole Sodium (Protonix) 40 mg DAILYAC PO Last administered on 09/16/16 08:30; Start 09/11/16 at 09:00 Trazodone HCl (Desyrel) 100 mg HS PO Last administered on 09/15/16 21:52; Start 09/11/16 at 21:00 Duloxetine HCl (Cymbalta) 60 mg BID PO Last administered on 09/16/16 08:30; Start 09/11/16 at 09:00 Insulin Detemir (Levemir) 10 units QHS SQ Last administered on 09/11/16 21:17; Start 09/11/16 at 21:00; Stop 09/12/16 at 14:16; Status DC Insulin Aspart (NovoLOG) 0-5 UNITS TIDWMEALS SQ Last administered on 09/16/16 08:53; Start 09/11/16 at 12:00 Dextrose (Dextrose 50%-Water Syringe) 12.5 gm PRN Q15MIN PRN IV SEE COMMENTS; Start 09/11/16 at 09:30 Insulin Detemir (Levemir) 4 units ONCE ONCE SQ Last administered on 09/11/16 10:19; Start 09/11/16 at 09:30; Stop 09/11/16 at 09:42; Status DC Acetaminophen (Tylenol) 650 mg Q6HRS PO Last administered on 09/13/16 06:17; Start 09/12/16 at 12:00; Stop 09/13/16 at 11:07; Status DC Insulin Detemir (Levemir) 15 units QHS SQ Last administered on 09/15/16 22:03; Start 09/12/16 at 21:00 Dextrose 0 ml @ As Directed STK-MED ONCE IV ; Start 09/13/16 at 07:33; Stop at 07:34; Status DC Glucose (Insta-Glucose) 15 gm PRN Q15MIN PRN PO LOW BLOOD SUGAR Last administered on 09/13/16 08:07; Start 09/13/16 at 07:45 Insulin Aspart (NovoLOG) 2 units TIDAC SQ Last administered on 09/16/16 08:51; Start 09/13/16 at 11:30 Active Scripts Active Senna-Time S Tablet (Sennosides/Docusate Sodium) 1 Each Tablet 1 Tab PO BID sig: one tab BID; hold for loose stools or diarrhea Oxycodone-Acetaminophen 5-325 (Oxycodone Hcl/Acetaminophen) 1 Each Tablet 1 Tab PO PRN Q4-6HRS PRN Metoprolol Tartrate 25 Mg Tablet 25 Mg PO BID SIG: ONE HALF TAB TWICE DAILY AT 0900 AND 2100 Aspirin Ec (Aspirin) 325 Mg Tablet. 325 Mg PO DAILYWBKFT 30 Days Xanax (Alprazolam) 0.5 Mg Tablet 1 Tab PO BID Novolog Flexpen (Insulin Aspart) 100 Unit/1 Ml Insuln.pen 5 Unit SQ TIDWMEALS 30 Days Levemir (Insulin Detemir) 100 Unit/1 Ml Vial 20 Unit SQ HS 30 Days Pantoprazole Sodium 40 Mg Tablet.dr 40 Mg PO DAILYAC 30 Days Reported Tylenol (Acetaminophen) 325 Mg Tablet 650 Mg PO PRN Q6HRS PRN Oxycodone Hcl 15 Mg Tablet 15 Mg PO PRN Q6HRS PRN Trazodone Hcl 50 Mg Tablet 100 Mg PO HS Chantix (Varenicline Tartrate) 1 Mg Tablet 1 Mg PO BID Cymbalta (Duloxetine Hcl) 60 Mg Capsule.dr 1 Cap PO BID Gabapentin 600 Mg Tablet 600 Mg PO TID Ambien (Zolpidem Tartrate) 10 Mg Tablet 1 Tab PO QHS NICODERM CQ 14mg (Nicotine) 1 Each Patch.td24 1 Patch TP DAILY Pentoxifylline 400 Mg Tablet.er 400 Mg PO BIDWMEALS Aspir-Low (Aspirin) 81 Mg Tablet.dr 1 Tab PO DAILY Voltaren (Diclofenac Sodium) 100 Gm Gel..gram. 1 Gm TP QID Vitals/I & O Vital Sign - Last 24 Hours 09/15/16 09/15/16 09/15/16 09/15/16 12:00 14:21 16:00 20:00 Temp 98.4 97.8 98.4 97.8 Pulse 72 68 Resp 20 18 18 B/P (MAP) 107/53 (71) 115/43 (67) Pulse Ox 88 92 91 O2 Delivery Room Air Nasal Cannula Room Air Nasal Cannula O2 Flow Rate 2.0 2.0 09/15/16 09/15/16 09/15/16 09/15/16 20:32 21:52 21:53 21:59 Temp 98.8 98.8 Pulse 73 73 73 Resp 20 18 B/P (MAP) 132/56 (81) 132/56 132/56 Pulse Ox 90 90 O2 Delivery Room Air Nasal Cannula O2 Flow Rate 2.0 2.0 09/15/16 09/15/16 09/16/16 09/16/16 22:52 23:00 03:15 07:00 Temp 98.7 97.8 99.1 98.7 97.8 99.1 Pulse 74 80 74 Resp 18 18 20 20 B/P (MAP) 137/61 (86) 124/63 (83) 138/53 (81) Pulse Ox 90 95 95 92 O2 Delivery Nasal Cannula Room Air Room Air Room Air O2 Flow Rate 2.0 09/16/16 09/16/16 08:30 08:36 Pulse 74 74 B/P (MAP) 138/53 138/53 Nutrition Consultation Dietary Evaluation: Recommendations by RD: Dietary education by RD, Increase Calorie Intake, Protein supplementation Comments: Diet education provided to pt on CABG- handout provided to use for home continue boost glucose control tid as po intake of meals remains minimal s/p surgery Expected Outcomes/Goals: to meet > 75% est nutr needs Malnutrition Findings: Body Fat Depletion (Non Severe: Mild Depletion Weight Status: Appropriate SAUNDRA FORTUNE MD Sep 16, 2016 09:17
[2016-09-16 10:35] VITALS: BP 130/55
[2016-09-16] MEDS: oxyCODONE/APAP 5/325 1 TAB TABLET PO PRN (14:53)
[2016-09-16 15:32] VITALS: BP 163/63
== END 2016-09-16 16:24 | DRG 235 ==
LOC: OPSVCIP 09-09 05:39 → 1 WEST ICU 09-09 10:22 → 2 SOUTH 09-11 14:01
PROVIDERS: ADMIT Thoracic Surgery (Cardiothoracic Vascular Surgery); ATTEND Thoracic Surgery (Cardiothoracic Vascular Surgery)
PROC: 06BP4ZZ Excision of Right Saphenous Vein, Percutaneous Endoscopic Approach (ICD-10-PCS; 2016-09-09)
PROC: 5A1221Z Performance of Cardiac Output, Continuous (ICD-10-PCS; 2016-09-09)
PROC: 3E083GC Introduction of Other Therapeutic Substance into Heart, Percutaneous Approach (ICD-10-PCS; 2016-09-09)
PROC: 05Q Upper Veins, Repair (ICD-10-PCS; 2016-09-09)
PROC: 02HP32Z Insertion of Monitoring Device into Pulmonary Trunk, Percutaneous Approach (ICD-10-PCS; 2016-09-09)
PROC: 021309W Bypass Coronary Artery, Four or More Arteries from Aorta with Autologous Venous Tissue, Open Approach (ICD-10-PCS; principal; 2016-09-09 07:30)
DX: I25.10 Atherosclerotic heart disease of native coronary artery without angina pectoris (principal); G93.40 Encephalopathy, unspecified; S42.202A Unspecified fracture of upper end of left humerus, initial encounter for closed fracture; I50.42 Chronic combined systolic (congestive) and diastolic (congestive) heart failure; E46 Unspecified protein-calorie malnutrition; D64.9 Anemia, unspecified; G47.30 Sleep apnea, unspecified; I11.0 Hypertensive heart disease with heart failure; I25.5 Ischemic cardiomyopathy; I50.9 Heart failure, unspecified; J44.9 Chronic obstructive pulmonary disease, unspecified; M19.90 Unspecified osteoarthritis, unspecified site; M79.7 Fibromyalgia; Z82.49 Family history of ischemic heart disease and other diseases of the circulatory system; Z86.711 Personal history of pulmonary embolism; Z86.79 Personal history of other diseases of the circulatory system; Z95.1 Presence of aortocoronary bypass graft; Z81.1 Family history of alcohol abuse and dependence; Z90.49 Acquired absence of other specified parts of digestive tract; Z90.710 Acquired absence of both cervix and uterus; I35.0 Nonrheumatic aortic (valve) stenosis; E78.5 Hyperlipidemia, unspecified; F32.9 Major depressive disorder, single episode, unspecified; G47.33 Obstructive sleep apnea (adult) (pediatric); Z90.89 Acquired absence of other organs; Z80.9 Family history of malignant neoplasm, unspecified; Z60.2 Problems related to living alone; E11.65 Type 2 diabetes mellitus with hyperglycemia; Z68.24 Body mass index [BMI] 24.0-24.9, adult; E11.51 Type 2 diabetes mellitus with diabetic peripheral angiopathy without gangrene; Z71.89 Other specified counseling
CPT/HCPCS: 36415; 36600; 71010; 73060; 80048; 82803; 82805; 82962; 83735; 84132; 85014; 85018; 85027; 85347; 85384; 85610; 85730; 86850; 86900; 86901; 86920; 86922; 86927; 93005; 94002; 94250; 94760; C1757; C1781; J0171; J0690; J1644; J1815; J2001; J2250; J2260; J2270; J2440; J2704; J3010; J3475; J3480; J3490; J7030; J7120; P9016; P9017; P9035; P9041; P9046; S0028; 97110; 97116; 97530; 97535; C9248

== ENCOUNTER → 2016-10-09 | Outpatient (CLI) | payer OTHER ==
[2016-09-16 15:32] VITALS: BP 163/63
[~2016-10-09] MED LIST changes: +ASPI325T11 PO; +METO25TA4 PO; +SENN-22 PO
--- NOTE | 2016-10-09 11:24 | RAD ---
PA and lateral chest radiograph 09/08/2016 Clinical history: Post CABG procedure one month ago. PA and lateral digital radiographs the chest were obtained. Comparison study is dated 10/01/2016. Surgical changes are seen consistent with a CABG procedure. The cardiac silhouette is borderline enlarged. The thoracic aorta is mildly tortuous. Atherosclerotic calcification of the thoracic aorta is seen. There is a small right pleural effusion. Right basilar subsegmental atelectasis is seen which appears improved slightly. Surgical clips are seen within the right upper quadrant of the abdomen consistent with a cholecystectomy. No pneumothorax is seen. Improving congestive changes are seen involving both lungs. The osseous structures are unchanged. Impression: Interval improvement in the right basilar subsegmental atelectasis, small right pleural effusion and congestive changes involving both lungs.
== END | disposition home or self-care (01) ==
LOC: RAD 10:52
PROVIDERS: ATTEND Thoracic Surgery (Cardiothoracic Vascular Surgery)
DX: Z98.890 Other specified postprocedural states (principal); J98.11 Atelectasis
CPT/HCPCS: 71020

== ENCOUNTER → 2016-10-16 | Outpatient (CLI) | payer OTHER ==
[2016-09-16 15:32] VITALS: BP 163/63
[~2016-10-16] MED LIST changes: +TRAM50TA PO
--- NOTE | 2016-10-16 23:06 | PAIN ---
DATE OF SERVICE: 10/16/2016 DIAGNOSES: 1. Lumbar radiculopathy with lumbar degenerative disk disease, lumbar spondylosis. 2. Cervical radiculopathy. 3. Myofascial pain. HISTORY OF PRESENT ILLNESS: The patient is a 60-year-old female who returns for followup status post medication management, last seen 08/26/2016. Also had radiofrequency ablation of bilateral L4-L5 and L5-S1 levels in May this year. The patient reports only about 40% improvement overall and still reports only about 30-40% improvement overall. The patient has recently had open heart cardiac bypass about one month ago and is currently going through rehab with this, also complains of significant pain in her left shoulder. She has had previously told she needed a shoulder reconstructive surgery; however, is waiting for the cardiac rehabilitation to be completed with her orthopedic surgeon instructions. The patient reports the pain is 8 on a scale of 10 at its worst, average about 8, least about 6, it is an 8 on a scale of 10. The patient is an aching, sharp tight, constant in the low back, mid back, upper back as well as left shoulder and arm, which is her chief complaint. The patient reports it awakens her from sleep occasionally, but she does take Ambien, which helps her sleep reports about the same again about 40% improvement overall without significant improvement after radiofrequency long-term. The patient reports no new motor or sensory deficits or other complaints. PHYSICAL EXAMINATION: VITAL SIGNS: Today, the patient's blood pressure 160/81, pulse is 93, respirations 20, temperature 97.9 degrees Fahrenheit. Height is 61 inches, weight is 108 pounds. GENERAL: The patient is awake, alert, oriented, appropriate, very pleasant demeanor. HEENT: Head shows normocephalic, atraumatic. Extraocular movements are intact, symmetrical. Oral cavity, mucous membranes are moist and pink. Dentition is intact. NECK: Shows anterior throat supple without palpable lymphadenopathy noted. Swallow reflex is symmetrical. CHEST: Shows normal on inspection. Breath sounds are clear to auscultation bilaterally. HEART: Shows S1 and S2 clear. ABDOMEN: Soft, nontender, nondistended. No palpable organomegaly. No rebound or guarding demonstrated. BACK: The patient's back shows spine grossly midline. Normal-appearing cervical lordotic curvature, thoracic kyphotic curvature, and lumbar lordotic curvature. Paraspinous musculature shows some [id number] tenderness in the inferior aspect of the cervical paraspinous musculature as well as the superior medial and lateral trapezius, more tender on the left than the right, also some tenderness into the lateral trapezius on the left side as well. The patient's thoracic paraspinous muscle shows moderate tenderness in the middle distribution, but only diffusely without radiation. No asymmetry or trigger points noted. Lumbar paraspinous musculature is more firm in the upper middle and lower distribution is tender with palpation, but only diffusely again without radiation. No tenderness over the sacrum or sacroiliac regions. The patient shows good rotation and motion of the lumbar spine with some minor tenderness with extension, but not with forward flexion, right and left lateral rotation. EXTREMITIES: Upper extremity deep tendon reflexes at 1+ in the biceps and triceps tendons. Lower extremities are 1+ in the patellar and tendo calcaneus tendons. Motor exam is strong with 5/5 technical services assistant strength as well as dorsiflexion, extension is intact as is quadriceps and hamstring flexion bilaterally. Peripheral pulses are 1+ posterior tibial and dorsalis pedis pulses, radial distribution is 2+ and equal bilaterally. The patient's left shoulder shows significant tenderness with attempted external rotation as well as the anterior reaching with the left shoulder, but not with the right. The patient shows tenderness with posterior rotation as well on the left side, but not the right. Shoulder shrug is slightly less intact on the left side than the right and gives loss of strength on resistance on the left side only. Options were discussed with the patient. The patient's old chart was reviewed as her current medication regimen updated. Current review of systems updated today as well. We will refill the patient's oxycodone to 15 mg up to 4 times daily. PLAN: The patient was given instruction as well as side effects to be aware with medication especially including hydration and maintain the patient's appetite. She has lost about 12 pounds since we have last seen her. We discussed this and the patient reports she is maintaining her appetite as best she can and is eating 3-4 meals a day. The patient will follow up in approximately 60 days. As noted to be given 2-month prescription of her medications with instructions and side effects to be aware of. SAIMA MORELOS MD DR: Clau JOB#: [id number] / [id number]
== END | disposition home or self-care (01) ==
LOC: PNCL 11:42
PROVIDERS: ATTEND Anesthesiology
DX: M51.16 Intervertebral disc disorders with radiculopathy, lumbar region (principal); M47.896 Other spondylosis, lumbar region; M25.512 Pain in left shoulder
CPT/HCPCS: 99212

== ENCOUNTER 2016-10-23 23:12 | Inpatient (IN) | payer OTHER ==
[~2016-10-23] VITALS: Ht 154.9 cm; Wt 46.3 kg
[~2016-10-23 23:12] MED LIST changes: -TRAM50TA PO
[2016-10-23 23:35] LABS: BASO % 0 % (0-3); EOS % 4 % (0-3); HEMATOCRIT 39.4 % (36.0-47.0); HEMOGLOBIN 12.8 g/dL (12.0-15.5); LYMPH % 24 % (24-48); MEAN CORPUSCULAR HEMOGLOBIN 30 pg (25-35); MEAN CORPUSCULAR HGB CONC 32 g/dL (31-37); MEAN CORPUSCULAR VOLUME 92 fL (79-100); MONO % 8 % (0-9); NEUT % 64 % (31-73); PLATELET COUNT 377 x10^3/uL (140-400); RED CELL DISTRIBUTION WIDTH 16.1 % (11.5-14.5); WHITE BLOOD COUNT 12.8 x10^3/uL (4.0-11.0)
--- NOTE | 2016-10-23 23:46 | RAD ---
CT HEAD WO CONTRAST dated 10/23/2016 11:20 PM Indication: Altered mental status altered mental.. Comparison: 02/29/2016. Technique: Contiguous axial imaging of the head was performed from skull base to vertex. One or more of the following individualized dose reduction techniques were utilized for this examination: 1. Automated exposure control 2. Adjustment of the mA and/or kV according to patient size 3. Use of iterative reconstruction technique Findings: Ventricles and sulci are moderately prominent for age, stable. No midline shift or mass effect. Mild patchy low density in the deep/subcortical periventricular white matter. No hemorrhage or extra-axial collection. Posterior fossa and brainstem unremarkable. Small air-fluid level left sphenoid sinus. The visualized paranasal sinuses and mastoid air cells are otherwise clear. No apparent calvarial abnormality. IMPRESSION: 1. No evidence of acute intracranial hemorrhage or mass. 2. Mild chronic small vessel ischemic changes and atrophy. 3. Mild sinus disease. Electronically signed by: Ignacio Childs MD (10/23/2016 11:42 PM) [facility]
[2016-10-23 23:47] LABS: CALCIUM 9.9 mg/dL (8.5-10.1); CREATININE 1.3 mg/dL (0.6-1.0); GFR 41.9; POTASSIUM 4.1 mmol/L (3.5-5.1)
[2016-10-23 23:53] LABS: ALBUMIN 3.5 g/dL (3.4-5.0); ALBUMIN/GLOBULIN RATIO 0.6 (1.0-1.7); TOTAL BILIRUBIN 1.1 mg/dL (0.2-1.0); TOTAL PROTEIN 9.5 g/dL (6.4-8.2)
[2016-10-24] VITALS (26 sets, daily range): BP systolic 104–167; BP diastolic 56–84
[2016-10-24 00:05] LABS: BILIRUBIN,URINE SMALL (NEG); GLUCOSE,URINE NEGATIVE (NEG); NITRITE,URINE NEGATIVE (NEG); PROTEIN,URINE 100 mg/dL (NEG-TRACE); UROBILINOGEN,URINE 0.2 mg/dL (0.2 mg/dL)
[2016-10-24 00:13] LABS: BARBITURATES NEG (NEG); BENZODIAZEPINES POS (NEG); CANNABINOIDS NEG (NEG); COCAINE NEG (NEG); METHADONE NEG (NEG); OPIATES POS (NEG); PHENCYCLIDINE NEG (NEG)
[2016-10-24] MEDS ORDERED: NALOXONE 2 MG/2 ML DISP.SYRIN. ONE ×2 (00:16)
[2016-10-24 00:17] LABS: RBC,URINE OCC /HPF (0-2); WBC,URINE OCC /HPF (0-4)
[2016-10-24 00:18] LABS: BACTERIA,URINE 0 /HPF (0-FEW); SQUAMOUS EPITHELIAL CELL,UR FEW /LPF
[2016-10-24] MEDS ORDERED: NALOXONE 0.4 MG/ML VIAL. IV ONE (00:30)
[2016-10-24] MEDS ORDERED: NALOXONE 2 MG/2 ML DISP.SYRIN. IV ONE (00:45)
--- NOTE | 2016-10-24 00:53 | ED.ADGEN ---
Past Medical History Past Medical History: CAD, CHF, Diabetes-Type II Past Surgical History: Appendectomy, Cholecystectomy, Hysterectomy Additional Past Surgical Histo: ectopic pregnancies x2, pulmonary embolism, ABD aortic bypass w bifurcation Alcohol Use: None Drug Use: None Adult General Chief Complaint Chief Complaint: ALTERED MENTAL STATUS HPI HPI Patient is a 60 year old woman, who presents to the emergency department via EMS with report of altered mental status. Per EMS report, patient is a history of CAD, and is on multiple medications for chronic pain. Per report, patient family called EMS due to altered mental status, additional information is unavailable this time. Medics state that "there are pill bottles all over the house", they do not have a current medication list. Patient did receive 2 mg of Narcan intranasally en route, with improvement of mental status, patient initially with a GCS of 14, patient now has a GCS of 15 is answering some questions appropriately. Patient remains drowsy at this time. Patient is moving all extremities, denying complaints. Additional information is unavailable at this time. Review of Systems Review of Systems Constitutional: Denies fever or chills. [] Eyes: Denies change in visual acuity. [] HENT: Denies nasal congestion or sore throat. [] Respiratory: Denies cough or shortness of breath. [] Cardiovascular: Denies chest pain or edema. [] GI: Denies abdominal pain, nausea, vomiting, bloody stools or diarrhea. [] : Denies dysuria. [] Musculoskeletal: Denies back pain or joint pain. [] Integument: Denies rash. [] Neurologic: Denies headache, focal weakness or sensory changes. [] Endocrine: Denies polyuria or polydipsia. [] Lymphatic: Denies swollen glands. [] Psychiatric: Denies depression or anxiety. [] Patient denying all complaints, is a limited historian due to mental status. Current Medications Current Medications Current Medications Medications (Trade) Dose Ordered Sig/Jo Start Time Stop Time Status Last Admin Dose Admin Naloxone HCl (Narcan) 1 mg 1X ONCE 10/24/16 00:45 10/24/16 00:46 DC 10/24/16 00:45 1 MG Allergies Allergies Allergies Coded Allergies Type Severity Reaction Last Updated Verified hydrocodone Adverse Reaction Intermediate LOOPY 09/09/16 Yes Physical Exam Physical Exam Constitutional: Well developed, well nourished, no acute distress, non-toxic appearance. [] HENT: Normocephalic, atraumatic, bilateral external ears normal, oropharynx moist, no oral exudates, nose normal. [] Eyes: PERRLA, EOMI, conjunctiva normal, no discharge. [] Neck: Normal range of motion, no tenderness, supple, no stridor. [] Cardiovascular:Heart rate regular rhythm, 3/5 systolic murmur, S1, S2, no rubs or gallops. Patient with sternotomy scar noted, healing. Lungs & Thorax: Diminished breath sounds at bases bilaterally, no rhonchi or rales identified. No chest wall crepitus or tenderness.[] Abdomen: Bowel sounds normal, soft, no tenderness, no rebound, rigidity, no guarding, no masses, no pulsatile masses. [] Skin: Warm, dry, no erythema, no rash. [] Back: No tenderness, no CVA tenderness. [] Extremities: No tenderness, no cyanosis, no clubbing, ROM intact, no edema. Negative Homans sign, patient with healing surgical incision noted to the needle aspect of the right lower extremity, consistent with vein harvesting. [] Neurologic: Alert and oriented X 2, normal motor function, normal sensory function, no focal deficits noted. Patient is drowsy, able to answer questions appropriate, but will drift off during conversation. Is following commands.[] Psychologic: Drowsy, although answering questions appropriately, with a normal- appearing affect.] Current Patient Data Vital Signs Vital Signs Date Time Temp Pulse Resp B/P (MAP) Pulse Ox O2 Delivery O2 Flow Rate FiO2 10/24/16 00:24 80 16 133/63 (86) 99 10/23/16 23:22 98.6 Room Air 98.6 Lab Values Laboratory Tests Test 10/23/16 23:20 10/23/16 23:59 White Blood Count 12.8 x10^3/uL (4.0-11.0) H Red Blood Count 4.30 x10^6/uL (3.50-5.40) Hemoglobin 12.8 g/dL (12.0-15.5) Hematocrit 39.4 % (36.0-47.0) Mean Corpuscular Volume 92 fL (79-100) Mean Corpuscular Hemoglobin 30 pg (25-35) Mean Corpuscular Hemoglobin Concent 32 g/dL (31-37) Red Cell Distribution Width 16.1 % (11.5-14.5) H Platelet Count 377 x10^3/uL (140-400) # Neutrophils (%) (Auto) 64 % (31-73) Lymphocytes (%) (Auto) 24 % (24-48) Monocytes (%) (Auto) 8 % (0-9) Eosinophils (%) (Auto) 4 % (0-3) H Basophils (%) (Auto) 0 % (0-3) Neutrophils # (Auto) 8.2 x10^3uL (1.8-7.7) H Lymphocytes # (Auto) 3.0 x10^3/uL (1.0-4.8) Monocytes # (Auto) 1.1 x10^3/uL (0.0-1.1) Eosinophils # (Auto) 0.6 x10^3/uL (0.0-0.7) Basophils # (Auto) 0.0 x10^3/uL (0.0-0.2) Sodium Level 131 mmol/L (136-145) L Potassium Level 4.1 mmol/L (3.5-5.1) Chloride Level 91 mmol/L (98-107) L Carbon Dioxide Level 36 mmol/L (21-32) H Anion Gap 4 (6-14) L Blood Urea Nitrogen 33 mg/dL (7-20) H Creatinine 1.3 mg/dL (0.6-1.0) H Estimated GFR (Cockcroft-Gault) 41.9 BUN/Creatinine Ratio 25 (6-20) H Glucose Level 223 mg/dL (70-99) H Lactic Acid Level 2.1 mmol/L (0.4-2.0) H Calcium Level 9.9 mg/dL (8.5-10.1) Total Bilirubin 1.1 mg/dL (0.2-1.0) H Aspartate Amino Transferase (AST) 37 U/L (15-37) Alanine Aminotransferase (ALT) 19 U/L (14-59) Alkaline Phosphatase 227 U/L (46-116) H Troponin I Quantitative 0.108 ng/mL (0.000-0.055) RA-Ojt-Z-Type Natriuretic Peptide 72455 pg/mL (0-124) H Total Protein 9.5 g/dL (6.4-8.2) H Albumin 3.5 g/dL (3.4-5.0) Albumin/Globulin Ratio 0.6 (1.0-1.7) L Urine Collection Type U cath Urine Color Yellow Urine Clarity Clear Urine pH 5.0 Urine Specific Bynum 1.015 Urine Protein 100 mg/dL (NEG-TRACE) Urine Glucose (UA) Negative mg/dL (NEG) Urine Ketones (Stick) Negative mg/dL (NEG) Urine Blood Negative (NEG) Urine Nitrite Negative (NEG) Urine Bilirubin Small (NEG) Urine Urobilinogen Dipstick 0.2 mg/dL (0.2 mg/dL) Urine Leukocyte Esterase Negative (NEG) Urine RBC Occ /HPF (0-2) Urine WBC Occ /HPF (0-4) Urine Squamous Epithelial Cells Few /LPF Urine Amorphous Sediment Present /HPF Urine Bacteria 0 /HPF (0-FEW) Urine Hyaline Casts Moderate /HPF Urine Mucus Slight /LPF Urine Opiates Screen Pos (NEG) Urine Methadone Screen Neg (NEG) Urine Barbiturates Neg (NEG) Urine Phencyclidine Screen Neg (NEG) Urine Amphetamine/Methamphetamine Neg (NEG) Urine Benzodiazepines Screen Pos (NEG) Urine Cocaine Screen Neg (NEG) Urine Cannabinoids Screen Neg (NEG) Urine Ethyl Alcohol Neg (NEG) Laboratory Tests 10/23/16 23:20 Laboratory Tests 10/23/16 23:20 EKG EKG EC29/04/18: Sinus rhythm, heart rate 80 beats are minute, QTC of 447, OK of 158, QRS of 120, patient with a normal branch block noted, contour normality is noted in the anterior and septal leads, also with [address] depression noted in lead 1, and T-wave inversions noted in lead 3, abnormal ECG, does not meet STEMI criteria. As interpreted by me.[] Radiology/Procedures Radiology/Procedures Chest x-ray: One view:: Normal cardiac silhouette with straightening of the left heart border, patient with pulmonary edema noted, and elevation of the right hemidiaphragm, no significant effusions identified, no pneumothorax, no soft tissue or bony abnormalities identified. As interpreted by me.[] Course & Med Decision Making Course & Med Decision Making Pertinent Labs and Imaging studies reviewed. (See chart for details) Patient received additional 2 mg of Narcan, 1 and 1, with continued improvement of mental status. CT of the head obtained, not reveal any acutely concerning findings, chest x-ray does reveal mild pulmonary edema. Laboratory studies reveal elevated troponin and proBNP, with a lactic acidosis at 2.1. Creatinine at 1.3, elevated from prior, consistent with previous admissions when patient was ill, with elevated proBNP at that time as well. Urine drug screen is positive for opioids and benzos. Patient with recent CABG as noted in the records. Is followed by Dr. Conteh of cardiology. Findings as above discussed with Dr. Valdez, the the patient's primary care provider. Evaluation is consistent with a likely opioid overdose, as patient's mentation has significant improved with administration of Narcan. No evidence of infection or other concerning findings identified and examination. Patient's laboratory abnormalities consistent with chronic heart disease, and exacerbation by likely respiratory depression due to opioid overdose. Patient tolerating Narcan drip while in the emergency department with stable vital signs. Patient was accepted to her service as a full admission to the ICU for continued monitoring and management, will place consult for cardiology, no intervention required at this time, will follow serial enzymes, laboratory studies, and close monitoring in the ICU. I did explain this to patient, who voiced understanding at this time, vital signs remained within normal limits on the monitor, with an oxygen saturation of 97% on room air, heart rate of 85, respiratory rate is 14-18 and unlabored, blood pressure 139/67, awaiting transport to the ICU. Bridge orders entered per discussion. Dragon Disclaimer Dragon Disclaimer This electronic medical record was generated, in whole or in part, using a voice recognition dictation system. Departure Impression: Primary Impression: Altered mental status Additional Impression: Opioid overdose Disposition: ADMITTED INPATIENT Admitting Physician: Randee Valdez Condition: IMPROVED Critical Care Time Critical care time was 25 minutes exclusive of procedures. Problem Qualifiers LESLI PEDERSON DO Oct 24, 2016 00:53
[2016-10-24] MEDS ORDERED: NALOXONE 2 MG in IV DEXTROSE 5% 500 ML IV ONE (01:00)
[2016-10-24] MEDS ORDERED: ONDANSETRON PF 4 MG/2 ML VIAL. IV PRN (01:30)
[2016-10-24] MEDS ORDERED: DEXTROSE 50% 25 GM / 50ML DISP.SYRIN. IV PRN (01:45)
--- NOTE | 2016-10-24 03:18 | RAD ---
INDICATION: chest pain COMPARISON: None. FINDINGS: Single view of chest obtained. Poststernotomy changes with calcific atherosclerosis. Vertically oriented line along the left lateral thorax. Lung markings are seen extending peripheral to this location and therefore most likely secondary to skin fold. Interstitial opacities bilateral are identified. Mild linear opacity at right lung base. Partial visualization of ossific density inferior to the left proximal humerus IMPRESSION: Mild interstitial opacities within the bilateral lungs. Could be secondary to mild interstitial edema or interstitial infiltrate. Cannot exclude a chronic component on this exam. Linear opacity at the right lung base. Given the morphology this could be secondary to a region of atelectasis or scarring. There is also a possible round opacity in the right midlung versus overlap of structures measuring up to about 3.5 cm. Could be secondary to a focus of consolidation but would obtain a follow-up examination to ensure this resolves to exclude a lung mass. Partial visualization of ossific density inferior to the left humeral head. This is of unknown etiology but correlation is needed as to whether the patient has a history of fracture to the left shoulder given is partially visualized finding. Electronically signed by: Nate Rodriguez MD (10/24/2016 3:14 AM) [id number]
--- NOTE | 2016-10-24 06:52 | EKG ---
[facility] [address] [place] [address] Test Date: 2016-10-23 Test Time: 23:19:22 Pat Name: LEIDA MANCERA Department: Room: 112 1 Gender: F Travel [place]ota: : 1955 Requested By: LESLI PEDERSON Order Number: [id number] Reading MD: Buck Rodriguez Measurements Intervals Fowler Rate: 80 P: 13 VA: 158 QRS: 131 QRSD: 120 T: 73 QT: 384 QTc: 447 Interpretive Statements SINUS RHYTHM ABNORMAL RIGHT AXIS DEVIATION INCOMPLETE RIGHT BUNDLE BRANCH BLOCK Electronically Signed On 10-28-2016 10:56:30 CDT by Buck Rodriguez
[2016-10-24] MEDS: INSULIN ASPART 300 UNITS/3 ML INSULN.PEN SQ SCH ×6 (08:57→17:22)
[2016-10-24] MEDS ORDERED: ACETAMINOPHEN 325 MG TABLET. PO PRN (09:15)
[2016-10-24] MEDS ORDERED: SENNOSIDES/DOCUSATE 8.6/50MG TABLET. PO SCH (10:00)
--- NOTE | 2016-10-24 10:16 | PDOC1 ---
History and Physical Date of Admission Date of Admission 10/23/16 Identification/Chief Complaint Chief Complaint change in mental status Problems: Source Source: Chart review, Patient History of Present Illness History of Present Illness Patient is a 60 year old woman, who presents to the emergency department via EMS with report of altered mental status . patient has a history of CAD, status post coronary artery bypass graft recently and is on multiple medications for chronic pain for her back and recent fracture in her left shoulder. Patient does not remember what happened she remembers that she was getting ready to go to bed she lives alone but has to guys that lives on her property who apparently has called EMS due to altered mental status patient was wondering why would day have gotten into her house, additional information is unavailable this time. Medics state that "there are pill bottles all over the house", they do not have a current medication list. Patient did receive 2 mg of Narcan intranasally en route to ER, with improvement of mental status, appropriately. Patient remained drowsy and was started on Narcan drip and admitted to ICU and eventually, off noted that I have not seen the patient since she was discharged from the hospital after her coronary artery bypass graft, apparently she has been receiving her pain medication from the pain clinic Past Medical History Cardiovascular: CAD, CHF, HTN, Other Pulmonary: COPD, Pulmonary embolus, Other CENTRAL NERVOUS SYSTEM: Other GI: GERD Heme/Onc: No pertinent hx Hepatobiliary: No pertinent hx Psych: Anxiety, Depression Rheumatologic: Fibromyalgia Infectious disease: Other Renal/: No pertinent hx Endocrine: Diabetes Past Surgical History Past Surgical History: Appendectomy, Cholecystectomy, Hysterectomy, Other Family History Family History: Alcohol Abuse, Cancer, Hypertension Social History ALCOHOL: rare Drugs: None Current Problem List Problem List Problems Medical Problems: (1) Altered mental status Status: Acute (2) Opioid overdose Status: Acute Current Medications Current Medications Current Medications Medications (Trade) Dose Ordered Sig/Jo Start Time Stop Time Status Last Admin Dose Admin Acetaminophen (Tylenol) 650 mg PRN Q6HRS PRN 10/24/16 09:15 Alprazolam (Xanax) 0.5 mg BID 10/24/16 10:00 Aspirin (Ecotrin) 81 mg DAILY 10/24/16 10:00 Dextrose (Dextrose 50%-Water Syringe) 12.5 gm PRN Q15MIN PRN 10/24/16 01:45 Duloxetine HCl (Cymbalta) 60 mg BID 10/24/16 10:00 Gabapentin (Neurontin) 300 mg TID 10/24/16 14:00 Insulin Aspart (NovoLOG) 5 units TIDWMEALS 10/24/16 09:30 Insulin Detemir (Levemir) 20 units QHS 10/24/16 21:00 Metoprolol Tartrate (Lopressor) 25 mg BID 10/24/16 10:00 Naloxone HCl (Narcan) 1 mg 1X ONCE 10/24/16 00:45 10/24/16 00:46 DC 10/24/16 00:45 1 MG Naloxone HCl 2 mg/ Dextrose 502 ml @ 0 mls/hr 1X ONCE 10/24/16 01:00 10/24/16 01:01 DC 10/24/16 00:57 75 MLS/HR Ondansetron HCl (Zofran) 4 mg PRN Q8HRS PRN 10/24/16 01:30 10/25/16 01:29 Pantoprazole Sodium (Protonix) 40 mg DAILYAC 10/24/16 10:00 Pentoxifylline (TRENtal) 400 mg BIDWMEALS 10/24/16 10:00 Senna/Docusate Sodium (Senna Plus) 1 tab BID 10/24/16 10:00 Trazodone HCl (Desyrel) 100 mg HS 10/24/16 21:00 Allergies Allergies Allergies Coded Allergies Type Severity Reaction Last Updated Verified hydrocodone Adverse Reaction Intermediate LOOPY 09/09/16 Yes ROS Review of System CONSTITUTIONAL: No fever or chills EYES: No recent changes SKIN: No rash or itching CARDIOVASCULAR: No chest pain, syncope, palpitations, or edema RESPIRATORY: No SOB or cough GASTROINTESTINAL: No nausea, vomiting or abdominal pain NEUROLOGICAL: No headaches or weakness ENDOCRINE: No cold or heat intolerance GENITOURINARY: No urgency or frequency of urination MUSCULOSKELETAL: She has chronic back pain and also left shoulder pain due to fracture LYMPHATICS: No enlarged lymph nodes Physical Exam Physical Exam GEN.: No apparent distress. Alert and oriented at the time I saw her the next morning in the ICU she looks like she has lost quite a bit of weight HEENT: Head is normocephalic, atraumatic NECK: Supple. LUNGS: Clear to auscultation. HEART: RRR, S1, S2 present. Peripheral pulses intact ABDOMEN: Soft, nontender. Positive bowel sounds. EXTREMITIES: Without any cyanosis. NEUROLOGIC: Normal speech, normal tone PSYCHIATRIC: Normal affect, normal mood. SKIN: No ulcerations Vitals Vitals Vital Signs Date Time Temp Pulse Resp B/P (MAP) Pulse Ox O2 Delivery O2 Flow Rate FiO2 10/24/16 07:00 84 20 159/71 (100) 96 Room Air 10/24/16 04:00 99.0 99.0 Labs Labs Laboratory Tests Test 10/23/16 23:20 10/23/16 23:59 10/24/16 04:56 10/24/16 08:49 White Blood Count 12.8 x10^3/uL (4.0-11.0) Red Blood Count 4.30 x10^6/uL (3.50-5.40) Hemoglobin 12.8 g/dL (12.0-15.5) Hematocrit 39.4 % (36.0-47.0) Mean Corpuscular Volume 92 fL (79-100) Mean Corpuscular Hemoglobin 30 pg (25-35) Mean Corpuscular Hemoglobin Concent 32 g/dL (31-37) Red Cell Distribution Width 16.1 % (11.5-14.5) Platelet Count 377 x10^3/uL (140-400) Neutrophils (%) (Auto) 64 % (31-73) Lymphocytes (%) (Auto) 24 % (24-48) Monocytes (%) (Auto) 8 % (0-9) Eosinophils (%) (Auto) 4 % (0-3) Basophils (%) (Auto) 0 % (0-3) Neutrophils # (Auto) 8.2 x10^3uL (1.8-7.7) Lymphocytes # (Auto) 3.0 x10^3/uL (1.0-4.8) Monocytes # (Auto) 1.1 x10^3/uL (0.0-1.1) Eosinophils # (Auto) 0.6 x10^3/uL (0.0-0.7) Basophils # (Auto) 0.0 x10^3/uL (0.0-0.2) Sodium Level 131 mmol/L (136-145) Potassium Level 4.1 mmol/L (3.5-5.1) Chloride Level 91 mmol/L (98-107) Carbon Dioxide Level 36 mmol/L (21-32) Anion Gap 4 (6-14) Blood Urea Nitrogen 33 mg/dL (7-20) Creatinine 1.3 mg/dL (0.6-1.0) Estimated GFR (Cockcroft-Gault) 41.9 BUN/Creatinine Ratio 25 (6-20) Glucose Level 223 mg/dL (70-99) Lactic Acid Level 2.1 mmol/L (0.4-2.0) 1.4 mmol/L (0.4-2.0) Calcium Level 9.9 mg/dL (8.5-10.1) Total Bilirubin 1.1 mg/dL (0.2-1.0) Aspartate Amino Transf (AST/SGOT) 37 U/L (15-37) Alanine Aminotransferase (ALT/SGPT) 19 U/L (14-59) Alkaline Phosphatase 227 U/L (46-116) Troponin I Quantitative 0.108 ng/mL (0.000-0.055) WW-Tuk-X-Type Natriuretic Peptide 50529 pg/mL (0-124) Total Protein 9.5 g/dL (6.4-8.2) Albumin 3.5 g/dL (3.4-5.0) Albumin/Globulin Ratio 0.6 (1.0-1.7) Urine Collection Type U cath Urine Color Yellow Urine Clarity Clear Urine pH 5.0 Urine Specific [place] 1.015 Urine Protein 100 mg/dL (NEG-TRACE) Urine Glucose (UA) Negative mg/dL (NEG) Urine Ketones (Stick) Negative mg/dL (NEG) Urine Blood Negative (NEG) Urine Nitrite Negative (NEG) Urine Bilirubin Small (NEG) Urine Urobilinogen Dipstick 0.2 mg/dL (0.2 mg/dL) Urine Leukocyte Esterase Negative (NEG) Urine RBC Occ /HPF (0-2) Urine WBC Occ /HPF (0-4) Urine Squamous Epithelial Cells Few /LPF Urine Amorphous Sediment Present /HPF Urine Bacteria 0 /HPF (0-FEW) Urine Hyaline Casts Moderate /HPF Urine Mucus Slight /LPF Urine Opiates Screen Pos (NEG) Urine Methadone Screen Neg (NEG) Urine Barbiturates Neg (NEG) Urine Phencyclidine Screen Neg (NEG) Urine Amphetamine/Methamphetamine Neg (NEG) Urine Benzodiazepines Screen Pos (NEG) Urine Cocaine Screen Neg (NEG) Urine Cannabinoids Screen Neg (NEG) Urine Ethyl Alcohol Neg (NEG) Glucose (Fingerstick) 355 mg/dL (70-99) Laboratory Tests Test 10/23/16 23:20 10/23/16 23:59 10/24/16 04:56 10/24/16 08:49 White Blood Count 12.8 x10^3/uL (4.0-11.0) Red Blood Count 4.30 x10^6/uL (3.50-5.40) Hemoglobin 12.8 g/dL (12.0-15.5) Hematocrit 39.4 % (36.0-47.0) Mean Corpuscular Volume 92 fL (79-100) Mean Corpuscular Hemoglobin 30 pg (25-35) Mean Corpuscular Hemoglobin Concent 32 g/dL (31-37) Red Cell Distribution Width 16.1 % (11.5-14.5) Platelet Count 377 x10^3/uL (140-400) Neutrophils (%) (Auto) 64 % (31-73) Lymphocytes (%) (Auto) 24 % (24-48) Monocytes (%) (Auto) 8 % (0-9) Eosinophils (%) (Auto) 4 % (0-3) Basophils (%) (Auto) 0 % (0-3) Neutrophils # (Auto) 8.2 x10^3uL (1.8-7.7) Lymphocytes # (Auto) 3.0 x10^3/uL (1.0-4.8) Monocytes # (Auto) 1.1 x10^3/uL (0.0-1.1) Eosinophils # (Auto) 0.6 x10^3/uL (0.0-0.7) Basophils # (Auto) 0.0 x10^3/uL (0.0-0.2) Sodium Level 131 mmol/L (136-145) Potassium Level 4.1 mmol/L (3.5-5.1) Chloride Level 91 mmol/L (98-107) Carbon Dioxide Level 36 mmol/L (21-32) Anion Gap 4 (6-14) Blood Urea Nitrogen 33 mg/dL (7-20) Creatinine 1.3 mg/dL (0.6-1.0) Estimated GFR (Cockcroft-Gault) 41.9 BUN/Creatinine Ratio 25 (6-20) Glucose Level 223 mg/dL (70-99) Lactic Acid Level 2.1 mmol/L (0.4-2.0) 1.4 mmol/L (0.4-2.0) Calcium Level 9.9 mg/dL (8.5-10.1) Total Bilirubin 1.1 mg/dL (0.2-1.0) Aspartate Amino Transf (AST/SGOT) 37 U/L (15-37) Alanine Aminotransferase (ALT/SGPT) 19 U/L (14-59) Alkaline Phosphatase 227 U/L (46-116) Troponin I Quantitative 0.108 ng/mL (0.000-0.055) UY-Vsf-O-Type Natriuretic Peptide 55379 pg/mL (0-124) Total Protein 9.5 g/dL (6.4-8.2) Albumin 3.5 g/dL (3.4-5.0) Albumin/Globulin Ratio 0.6 (1.0-1.7) Urine Collection Type U cath Urine Color Yellow Urine Clarity Clear Urine pH 5.0 Urine Specific [place] 1.015 Urine Protein 100 mg/dL (NEG-TRACE) Urine Glucose (UA) Negative mg/dL (NEG) Urine Ketones (Stick) Negative mg/dL (NEG) Urine Blood Negative (NEG) Urine Nitrite Negative (NEG) Urine Bilirubin Small (NEG) Urine Urobilinogen Dipstick 0.2 mg/dL (0.2 mg/dL) Urine Leukocyte Esterase Negative (NEG) Urine RBC Occ /HPF (0-2) Urine WBC Occ /HPF (0-4) Urine Squamous Epithelial Cells Few /LPF Urine Amorphous Sediment Present /HPF Urine Bacteria 0 /HPF (0-FEW) Urine Hyaline Casts Moderate /HPF Urine Mucus Slight /LPF Urine Opiates Screen Pos (NEG) Urine Methadone Screen Neg (NEG) Urine Barbiturates Neg (NEG) Urine Phencyclidine Screen Neg (NEG) Urine Amphetamine/Methamphetamine Neg (NEG) Urine Benzodiazepines Screen Pos (NEG) Urine Cocaine Screen Neg (NEG) Urine Cannabinoids Screen Neg (NEG) Urine Ethyl Alcohol Neg (NEG) Glucose (Fingerstick) 355 mg/dL (70-99) VTE Prophylaxis Ordered VTE Prophylaxis Devices: Yes VTE Pharmacological Prophylaxi: No Assessment/Plan Assessment/Plan #1 change in mental status seem to be due to overdose on medication 2-coronary artery disease with history of coronary artery bypass graft about 6 weeks ago, troponin is mildly elevated cardiology has been consulted 3-diabetes mellitus insulin requiring 4-chronic back pain and left shoulder pain 5-left humerus fracture Other diagnoses as per past medical history JOSH GANT MD Oct 24, 2016 10:16
[2016-10-24] MEDS: PANTOPRAZOLE 40 MG TABLET.DR. PO SCH (10:43)
[2016-10-24] MEDS: DULoxetine HCL 30 MG CAPSULE.DR PO SCH ×2 (10:43→20:57)
[2016-10-24] MEDS: PENTOXIFYLLINE ER 400 MG TABLET.ER. PO SCH ×2 (10:43→17:18)
[2016-10-24] MEDS: METOPROLOL TART IMMED RELEASE 25 MG TABLET. PO SCH ×2 (10:44→20:58)
[2016-10-24] MEDS: ASPIRIN ENTERIC COATED 81 MG TABLET.DR. PO SCH (10:44)
[2016-10-24] MEDS: ALPRAZolam 0.5 MG TABLET PO SCH ×2 (10:44→20:58)
[2016-10-24] MEDS ORDERED: INSU100V13 SQ (13:57)
[2016-10-24] MEDS: GABAPENTIN 300 MG CAPSULE. PO SCH ×2 (14:26→21:08)
--- NOTE | 2016-10-24 14:44 | RAD ---
Indication lung mass. A single view of the chest was obtained and is compared to a study one day earlier. Postoperative changes are noted. Chronic deformity is noted associated with the proximal left humerus. There is some linear atelectasis or scar at the right lung base. There may be a tiny right pleural effusion. No definite parenchymal mass is seen in either lung. There is no congestive heart failure. IMPRESSION: No congestive heart failure. Linear atelectasis or scar with a small accompanying pleural effusion at the right lung base.
--- NOTE | 2016-10-24 15:15 | PDOC2 ---
CONSULT Date of Consult Date of Consult DATE: 10/24/16 TIME: 15:14 Reason for Consult Reason for Consult: Elevated troponin and BNP Referring Physician Referring Physician: Dr. Fried Identification/Chief Complaint Chief Complaint AMS Problems: History of Present Illness Reason for Visit: Ms. Macias is a 60 year old female who is known to me. She has history of CAD, recent CABG, chronic pain secondary to shoulder injury. She presented to the ED yesterday with AMS. She was brought in by EMS who administered 2mg Narcan intranasally. She received an additional 2mg of Narcan in the ED. Patient seen and examined today. Narcan was discontinued this morning. The patient was alert and responsive, she was eating lunch when I saw her today. She does not remember what happened and reports that she is feeling better. She has no other complaints. Past Medical History Cardiovascular: CAD, CHF, HTN, Other Pulmonary: COPD, Pulmonary embolus, Other CENTRAL NERVOUS SYSTEM: Other GI: GERD Heme/Onc: No pertinent hx Hepatobiliary: No pertinent hx Psych: Anxiety, Depression Musculoskeletal: Osteoarthritis, Other Rheumatologic: Fibromyalgia Infectious disease: Other Renal/: No pertinent hx Endocrine: Diabetes Past Surgical History Past Surgical History: Appendectomy, Cholecystectomy, Hysterectomy, Other Family History Family History: Alcohol Abuse, Cancer, Hypertension Social History ALCOHOL: rare Drugs: None Lives: Alone Current Problem List Problem List Problems Medical Problems: (1) Altered mental status Status: Acute (2) Opioid overdose Status: Acute Current Medications Current Medications Current Medications Naloxone HCl (Narcan) 1 mg 1X ONCE IV Last administered on 10/24/16 00:16; Start 10/24/16 at 00:30; Stop 10/24/16 at 00:31; Status DC Naloxone HCl (Narcan) 2 mg STK-MED ONCE .ROUTE ; Start 10/24/16 at 00:00; Stop 10/24/16 at 00:01; Status DC Naloxone HCl (Narcan) 2 mg STK-MED ONCE .ROUTE ; Start 10/24/16 at 00:16; Stop 10/24/16 at 00:17; Status DC Naloxone HCl (Narcan) 1 mg 1X ONCE IV Last administered on 10/24/16 00:45; Start 10/24/16 at 00:45; Stop 10/24/16 at 00:46; Status DC Naloxone HCl 2 mg/ Dextrose 502 ml @ 0 mls/hr 1X ONCE IV Last administered on 10/24/16 00:57; Start 10/24/16 at 01:00; Stop 10/24/16 at 01:01; Status DC Ondansetron HCl (Zofran) 4 mg PRN Q8HRS PRN IV NAUSEA/VOMITING; Start 10/24/16 at 01:30; Stop 10/25/16 at 01:29 Insulin Aspart (NovoLOG) 0-5 UNITS TIDWMEALS SQ Last administered on 10/24/16 12:13; Start 10/24/16 at 08:00 Dextrose (Dextrose 50%-Water Syringe) 12.5 gm PRN Q15MIN PRN IV SEE COMMENTS; Start 10/24/16 at 01:45 Acetaminophen (Tylenol) 650 mg PRN Q6HRS PRN PO PAIN; Start 10/24/16 at 09:15 Alprazolam (Xanax) 0.5 mg BID PO Last administered on 10/24/16 10:44; Start at 10:00 Aspirin (Ecotrin) 81 mg DAILY PO Last administered on 10/24/16 10:44; Start at 10:00 Insulin Aspart (NovoLOG) 5 units TIDWMEALS SQ Last administered on 10/24/16 12 :13; Start 10/24/16 at 09:30 Metoprolol Tartrate (Lopressor) 25 mg BID PO Last administered on 10/24/16 10: 44; Start 10/24/16 at 10:00 Pantoprazole Sodium (Protonix) 40 mg DAILYAC PO Last administered on 10/24/16 10:43; Start 10/24/16 at 10:00 Pentoxifylline (TRENtal) 400 mg BIDWMEALS PO Last administered on 10/24/16 10: 43; Start 10/24/16 at 10:00 Senna/Docusate Sodium (Senna Plus) 1 tab BID PO ; Start 10/24/16 at 10:00 Trazodone HCl (Desyrel) 100 mg HS PO ; Start 10/24/16 at 21:00 Duloxetine HCl (Cymbalta) 60 mg BID PO Last administered on 10/24/16 10:43; Start 10/24/16 at 10:00 Gabapentin (Neurontin) 300 mg TID PO Last administered on 10/24/16t 14:26; Start 10/24/16 at 14:00 Insulin Detemir (Levemir) 20 units QHS SQ ; Start 10/24/16 at 21:00 Active Scripts Active Senna-Time S Tablet (Sennosides/Docusate Sodium) 1 Each Tablet 1 Tab PO BID sig: one tab BID; hold for loose stools or diarrhea Oxycodone-Acetaminophen 5-325 (Oxycodone Hcl/Acetaminophen) 1 Each Tablet 1 Tab PO PRN Q4-6HRS PRN Metoprolol Tartrate 25 Mg Tablet 25 Mg PO BID SIG: ONE HALF TAB TWICE DAILY AT 0900 AND 2100 Aspirin Ec (Aspirin) 325 Mg Tablet.dr 325 Mg PO DAILYWBKFT 30 Days Xanax (Alprazolam) 0.5 Mg Tablet 1 Tab PO BID Novolog Flexpen (Insulin Aspart) 100 Unit/1 Ml Insuln.pen 5 Unit SQ TIDWMEALS 30 Days Levemir (Insulin Detemir) 100 Unit/1 Ml Vial 20 Unit SQ HS 30 Days Pantoprazole Sodium 40 Mg Tablet.dr 40 Mg PO DAILYAC 30 Days Reported Levemir (Insulin Detemir) 100 Unit/1 Ml Vial 12 Unit SQ QHS Tylenol (Acetaminophen) 325 Mg Tablet 650 Mg PO PRN Q6HRS PRN Oxycodone Hcl 15 Mg Tablet 15 Mg PO PRN Q6HRS PRN Chantix (Varenicline Tartrate) 1 Mg Tablet 1 Mg PO BID Cymbalta (Duloxetine Hcl) 60 Mg Capsule.dr 1 Cap PO BID Gabapentin 600 Mg Tablet 600 Mg PO BID Ambien (Zolpidem Tartrate) 10 Mg Tablet 1 Tab PO QHS Pentoxifylline 400 Mg Tablet.er 400 Mg PO BIDWMEALS Voltaren (Diclofenac Sodium) 100 Gm Gel..gram. 1 Gm TP QID Allergies Allergies: Coded Allergies: hydrocodone (Verified Adverse Reaction, Intermediate, LOOPY, 09/09/16) N/V Physical Exam General: Alert, Cooperative, No acute distress HEENT: PERRLA, EOMI Lungs: Clear to auscultation Heart: Other (Regular rate and rhythm. Normal S1 and S2, no S3, no S4.) Abdomen: Normal bowel sounds, Soft, No tenderness Extremities: No cyanosis, No edema Vitals VITALS Vital Signs Date Time Temp Pulse Resp B/P (MAP) Pulse Ox O2 Delivery O2 Flow Rate FiO2 10/24/16 15:00 69 17 112/61 (78) 97 Room Air 10/24/16 12:00 98.4 98.4 Labs Labs Laboratory Tests Test 10/23/16 23:20 10/23/16 23:59 10/24/16 04:56 10/24/16 08:49 White Blood Count 12.8 x10^3/uL (4.0-11.0) Red Blood Count 4.30 x10^6/uL (3.50-5.40) Hemoglobin 12.8 g/dL (12.0-15.5) Hematocrit 39.4 % (36.0-47.0) Mean Corpuscular Volume 92 fL (79-100) Mean Corpuscular Hemoglobin 30 pg (25-35) Mean Corpuscular Hemoglobin Concent 32 g/dL (31-37) Red Cell Distribution Width 16.1 % (11.5-14.5) Platelet Count 377 x10^3/uL (140-400) Neutrophils (%) (Auto) 64 % (31-73) Lymphocytes (%) (Auto) 24 % (24-48) Monocytes (%) (Auto) 8 % (0-9) Eosinophils (%) (Auto) 4 % (0-3) Basophils (%) (Auto) 0 % (0-3) Neutrophils # (Auto) 8.2 x10^3uL (1.8-7.7) Lymphocytes # (Auto) 3.0 x10^3/uL (1.0-4.8) Monocytes # (Auto) 1.1 x10^3/uL (0.0-1.1) Eosinophils # (Auto) 0.6 x10^3/uL (0.0-0.7) Basophils # (Auto) 0.0 x10^3/uL (0.0-0.2) Sodium Level 131 mmol/L (136-145) Potassium Level 4.1 mmol/L (3.5-5.1) Chloride Level 91 mmol/L (98-107) Carbon Dioxide Level 36 mmol/L (21-32) Anion Gap 4 (6-14) Blood Urea Nitrogen 33 mg/dL (7-20) Creatinine 1.3 mg/dL (0.6-1.0) Estimated GFR (Cockcroft-Gault) 41.9 BUN/Creatinine Ratio 25 (6-20) Glucose Level 223 mg/dL (70-99) Lactic Acid Level 2.1 mmol/L (0.4-2.0) 1.4 mmol/L (0.4-2.0) Calcium Level 9.9 mg/dL (8.5-10.1) Total Bilirubin 1.1 mg/dL (0.2-1.0) Aspartate Amino Transf (AST/SGOT) 37 U/L (15-37) Alanine Aminotransferase (ALT/SGPT) 19 U/L (14-59) Alkaline Phosphatase 227 U/L (46-116) Troponin I Quantitative 0.108 ng/mL (0.000-0.055) UC-Lnu-K-Type Natriuretic Peptide 73573 pg/mL (0-124) Total Protein 9.5 g/dL (6.4-8.2) Albumin 3.5 g/dL (3.4-5.0) Albumin/Globulin Ratio 0.6 (1.0-1.7) Urine Collection Type U cath Urine Color Yellow Urine Clarity Clear Urine pH 5.0 Urine Specific [place] 1.015 Urine Protein 100 mg/dL (NEG-TRACE) Urine Glucose (UA) Negative mg/dL (NEG) Urine Ketones (Stick) Negative mg/dL (NEG) Urine Blood Negative (NEG) Urine Nitrite Negative (NEG) Urine Bilirubin Small (NEG) Urine Urobilinogen Dipstick 0.2 mg/dL (0.2 mg/dL) Urine Leukocyte Esterase Negative (NEG) Urine RBC Occ /HPF (0-2) Urine WBC Occ /HPF (0-4) Urine Squamous Epithelial Cells Few /LPF Urine Amorphous Sediment Present /HPF Urine Bacteria 0 /HPF (0-FEW) Urine Hyaline Casts Moderate /HPF Urine Mucus Slight /LPF Urine Opiates Screen Pos (NEG) Urine Methadone Screen Neg (NEG) Urine Barbiturates Neg (NEG) Urine Phencyclidine Screen Neg (NEG) Urine Amphetamine/Methamphetamine Neg (NEG) Urine Benzodiazepines Screen Pos (NEG) Urine Cocaine Screen Neg (NEG) Urine Cannabinoids Screen Neg (NEG) Urine Ethyl Alcohol Neg (NEG) Glucose (Fingerstick) 355 mg/dL (70-99) Test 10/24/16 11:10 10/24/16 12:08 Troponin I Quantitative 0.063 ng/mL (0.000-0.055) Glucose (Fingerstick) 400 mg/dL (70-99) Laboratory Tests Test 10/23/16 23:20 10/23/16 23:59 10/24/16 04:56 10/24/16 08:49 White Blood Count 12.8 x10^3/uL (4.0-11.0) Red Blood Count 4.30 x10^6/uL (3.50-5.40) Hemoglobin 12.8 g/dL (12.0-15.5) Hematocrit 39.4 % (36.0-47.0) Mean Corpuscular Volume 92 fL (79-100) Mean Corpuscular Hemoglobin 30 pg (25-35) Mean Corpuscular Hemoglobin Concent 32 g/dL (31-37) Red Cell Distribution Width 16.1 % (11.5-14.5) Platelet Count 377 x10^3/uL (140-400) Neutrophils (%) (Auto) 64 % (31-73) Lymphocytes (%) (Auto) 24 % (24-48) Monocytes (%) (Auto) 8 % (0-9) Eosinophils (%) (Auto) 4 % (0-3) Basophils (%) (Auto) 0 % (0-3) Neutrophils # (Auto) 8.2 x10^3uL (1.8-7.7) Lymphocytes # (Auto) 3.0 x10^3/uL (1.0-4.8) Monocytes # (Auto) 1.1 x10^3/uL (0.0-1.1) Eosinophils # (Auto) 0.6 x10^3/uL (0.0-0.7) Basophils # (Auto) 0.0 x10^3/uL (0.0-0.2) Sodium Level 131 mmol/L (136-145) Potassium Level 4.1 mmol/L (3.5-5.1) Chloride Level 91 mmol/L (98-107) Carbon Dioxide Level 36 mmol/L (21-32) Anion Gap 4 (6-14) Blood Urea Nitrogen 33 mg/dL (7-20) Creatinine 1.3 mg/dL (0.6-1.0) Estimated GFR (Cockcroft-Gault) 41.9 BUN/Creatinine Ratio 25 (6-20) Glucose Level 223 mg/dL (70-99) Lactic Acid Level 2.1 mmol/L (0.4-2.0) 1.4 mmol/L (0.4-2.0) Calcium Level 9.9 mg/dL (8.5-10.1) Total Bilirubin 1.1 mg/dL (0.2-1.0) Aspartate Amino Transf (AST/SGOT) 37 U/L (15-37) Alanine Aminotransferase (ALT/SGPT) 19 U/L (14-59) Alkaline Phosphatase 227 U/L (46-116) Troponin I Quantitative 0.108 ng/mL (0.000-0.055) SB-Ire-T-Type Natriuretic Peptide 26949 pg/mL (0-124) Total Protein 9.5 g/dL (6.4-8.2) Albumin 3.5 g/dL (3.4-5.0) Albumin/Globulin Ratio 0.6 (1.0-1.7) Urine Collection Type U cath Urine Color Yellow Urine Clarity Clear Urine pH 5.0 Urine Specific [place] 1.015 Urine Protein 100 mg/dL (NEG-TRACE) Urine Glucose (UA) Negative mg/dL (NEG) Urine Ketones (Stick) Negative mg/dL (NEG) Urine Blood Negative (NEG) Urine Nitrite Negative (NEG) Urine Bilirubin Small (NEG) Urine Urobilinogen Dipstick 0.2 mg/dL (0.2 mg/dL) Urine Leukocyte Esterase Negative (NEG) Urine RBC Occ /HPF (0-2) Urine WBC Occ /HPF (0-4) Urine Squamous Epithelial Cells Few /LPF Urine Amorphous Sediment Present /HPF Urine Bacteria 0 /HPF (0-FEW) Urine Hyaline Casts Moderate /HPF Urine Mucus Slight /LPF Urine Opiates Screen Pos (NEG) Urine Methadone Screen Neg (NEG) Urine Barbiturates Neg (NEG) Urine Phencyclidine Screen Neg (NEG) Urine Amphetamine/Methamphetamine Neg (NEG) Urine Benzodiazepines Screen Pos (NEG) Urine Cocaine Screen Neg (NEG) Urine Cannabinoids Screen Neg (NEG) Urine Ethyl Alcohol Neg (NEG) Glucose (Fingerstick) 355 mg/dL (70-99) Test 10/24/16 11:10 10/24/16 12:08 Troponin I Quantitative 0.063 ng/mL (0.000-0.055) Glucose (Fingerstick) 400 mg/dL (70-99) Assessment/Plan Assessment/Plan This pt's mental changes are probably due to pain meds from her CABGS and her shoulder Fx and the respiratory depression resulting in hypoxic ischemia with mild elevation of the troponin. Pt is post recent CABGS Cardiac alonso she is compensated and stable. I agree with present plan. Consider ortho consult to evaluate for the timing of the shoulder surgery. Thank you for asking me to participate in the care of this Lady. SAUNDRA FORTUNE MD Oct 24, 2016 15:15
[2016-10-24] MEDS ORDERED: SENNOSIDES/DOCUSATE 8.6/50MG TABLET. PO PRN (18:30)
[2016-10-24] MEDS ORDERED: traZODone 100 MG TABLET. PO SCH (21:00)
[2016-10-24] MEDS ORDERED: INSULIN DETEMIR 300 UNITS/3 ML INSULN.PEN. SQ SCH ×2 (21:00)
[2016-10-25] VITALS (9 sets, daily range): BP systolic 109–151; BP diastolic 61–77
--- NOTE | 2016-10-25 00:53 | ACF ---
Admission Forms Criteria MENTAL STATUS CHANGE Clinical Indications for Inpatient Care (Place 'X' for any and all applicable criteria): Ongoing inpatient care may be needed for 1 or more of the following(1)(2)(3)(5)( 6): [X]I. Suspected serious etiology (eg, medical disorder, PHARMACY OPERATIONS SPECIALIST event) of altered mental status [ ]II. Danger to self or others not manageable at lower level of care [ ]III. Grave disability (eg, inability to perform self care necessary at lower level of care) [ ]IV. Agitation or inappropriate behavior interfering with care for primary condition (eg, attempting to discontinue lines or drains prematurely, unable to cooperate with respiratory care) [ ]V. Delirium [A] [D][E] as described by 1 or more of the following(26): [ ]a) Delirium due to alcohol or sedative [F] withdrawal [ ]b) Delirium of uncertain etiology that has not responded to appropriate empiric treatment [ ]c) Delirium that prevents performance of a life-sustaining function (eg, feeding or hydrating oneself) [ ]. General contraindications and/or Inappropriate clinical situations for Observational Care in patients with Mental Status Change, when ANY ONE of the following is required: [ ]a) Prediction of prolongation of LOS based on ANY ONE of the following may be considered as a contraindication for observational care 2, 3, 4, 5, 6, 7, 8, 9, 10, 11 [ ]i) Age > 65 yrs. [ ]ii) Patient arriving by ambulance [ ]iii) Patient with high acuity [ ]iv) Patient requiring vital sign monitoring [ ]v) Patient on IV medication [ ]b) Systolic blood pressures greater than or equal to 180mmHg 3, 12 [ ]c) Patient with altered mental status including delirium and other alteration of consciousness, (3) [ ]d) Patient whose discharge disposition will be to a custodial home or rehabilitation home should not be managed in Emergency Department Observation Unit. CMS rule requires 3 days hospital stay before such placement.3,13 [ ]e) Patient with failure to thrive due to broad array of etiologies 3,16,17 [ ]f) Inability to ambulate 3,14 Extended stay beyond goal length of stay for the primary condition may be needed until ALL of the following are present(3)(5): [ ]a) Underlying medical etiology of mental status change is absent, or has been established and adequately treated [ ]b) Danger to self or others is absent or manageable at lower level of care. [ ]c) Behavior crisis management, including physical or chemical restraints, is not required or available at lower level of car [ ]d) Substance or alcohol withdrawal is absent or manageable at lower level of care. [ ]e) Behavioral symptoms (eg, agitation, somnolence, inappropriate behavior) are absent, or are manageable at lower level of care. The original [facility] content created by [facility] has been revised. The portions of the content which have been revised are identified through the use of italic text or in bold, and [facility] has neither reviewed nor approved the modified material. All other unmodified content is copyright [facility] [employer] [facility]. Please see references footnoted in the original [facility] edition 2016 Admission Criteria Met?: Yes AGNES JAQUEZ Oct 25, 2016 00:53
[2016-10-25 05:29] LABS: BASO # 0.1 x10^3/uL (0.0-0.2); BASO % 1 % (0-3); EOS % 6 % (0-3); HEMOGLOBIN 12.9 g/dL (12.0-15.5); LYMPH # 2.6 x10^3/uL (1.0-4.8); LYMPH % 30 % (24-48); MEAN CORPUSCULAR HEMOGLOBIN 30 pg (25-35); MEAN CORPUSCULAR HGB CONC 34 g/dL (31-37); MEAN CORPUSCULAR VOLUME 89 fL (79-100); MONO % 9 % (0-9); NEUT % 54 % (31-73); PLATELET COUNT 348 x10^3/uL (140-400); RED BLOOD COUNT 4.26 x10^6/uL (3.50-5.40); RED CELL DISTRIBUTION WIDTH 16.4 % (11.5-14.5); WHITE BLOOD COUNT 8.7 x10^3/uL (4.0-11.0)
[2016-10-25 05:51] LABS: ALBUMIN 2.8 g/dL (3.4-5.0); ALBUMIN/GLOBULIN RATIO 0.5 (1.0-1.7); CALCIUM 8.9 mg/dL (8.5-10.1); CREATININE 1.1 mg/dL (0.6-1.0); GFR 50.8; POTASSIUM 3.6 mmol/L (3.5-5.1); TOTAL BILIRUBIN 0.8 mg/dL (0.2-1.0); TOTAL PROTEIN 8.1 g/dL (6.4-8.2)
[2016-10-25] MEDS: INSULIN ASPART 300 UNITS/3 ML INSULN.PEN SQ SCH ×4 (08:00→12:54)
[2016-10-25] MEDS: ALPRAZolam 0.5 MG TABLET PO SCH (08:03)
[2016-10-25] MEDS: PANTOPRAZOLE 40 MG TABLET.DR. PO SCH (08:03)
[2016-10-25] MEDS: METOPROLOL TART IMMED RELEASE 25 MG TABLET. PO SCH (08:03)
[2016-10-25] MEDS: ASPIRIN ENTERIC COATED 81 MG TABLET.DR. PO SCH (08:04)
[2016-10-25] MEDS: GABAPENTIN 300 MG CAPSULE. PO SCH (08:04)
[2016-10-25] MEDS: DULoxetine HCL 30 MG CAPSULE.DR PO SCH (08:04)
[2016-10-25] MEDS: PENTOXIFYLLINE ER 400 MG TABLET.ER. PO SCH (08:04)
[2016-10-25] MEDS ORDERED: TRAM50TA PO (09:10)
--- NOTE | 2016-10-25 09:14 | PDOC ---
SUBJECTIVE Subjective up in chair feeling good, no new complaints or problems OBJECTIVE Vital Signs Vital Signs Date Time Temp Pulse Resp B/P (MAP) Pulse Ox O2 Delivery O2 Flow Rate FiO2 10/25/16 08:03 140/69 10/25/16 07:00 74 16 110/61 (77) 96 Room Air 10/25/16 06:00 72 16 109/61 (77) 96 Room Air 10/25/16 05:00 72 18 110/62 (78) 97 Room Air 10/25/16 04:00 66 20 134/62 (86) 96 Room Air 10/25/16 04:00 Room Air 10/25/16 03:00 68 18 134/61 (85) 96 Room Air 10/25/16 02:00 68 18 129/65 (86) 95 Room Air 10/25/16 01:00 68 18 129/65 (86) 95 Room Air 10/24/16 23:59 Room Air 10/24/16 23:59 97.9 68 18 146/60 (88) 95 Room Air 97.9 10/24/16 23:00 68 16 140/66 (90) 96 Room Air 10/24/16 22:00 68 16 141/74 (96) 96 Room Air 10/24/16 21:00 74 16 136/64 (88) 96 Room Air 10/24/16 20:58 75 136/64 10/24/16 20:00 98.2 74 16 134/64 (87) 98 Room Air 98.2 10/24/16 20:00 Room Air 10/24/16 19:00 75 16 135/65 (88) 96 Room Air 10/24/16 18:00 72 20 104/56 (72) 98 Room Air 10/24/16 17:00 70 18 145/72 (96) 98 Room Air 10/24/16 16:00 Room Air 10/24/16 16:00 98.1 70 17 133/63 (86) 97 Room Air 98.1 10/24/16 15:00 69 17 112/61 (78) 97 Room Air 10/24/16 14:00 68 18 112/67 (82) 97 Room Air 10/24/16 12:00 98.4 80 18 130/60 (83) 96 Room Air 98.4 10/24/16 11:39 Room Air 10/24/16 11:00 80 19 136/66 (89) 95 Room Air 10/24/16 10:44 80 132/60 10/24/16 10:00 78 21 132/60 (84) 97 Room Air PHYSICAL EXAM Physical Exam lungs clear heart RRR abd soft ext no edema ASSESSMENT/PLAN Assessment/Plan feels good, home today, f/u next week, no oxycodone use tramadol only no more than 3 daily call if problem Problems: COMMENT Lab Laboratory Tests Test 10/24/16 11:10 10/24/16 12:08 10/24/16 16:31 10/24/16 21:03 Troponin I Quantitative 0.063 ng/mL (0.000-0.055) Glucose (Fingerstick) 400 mg/dL (70-99) 150 mg/dL (70-99) 130 mg/dL (70-99) Test 10/25/16 04:45 White Blood Count 8.7 x10^3/uL (4.0-11.0) Red Blood Count 4.26 x10^6/uL (3.50-5.40) Hemoglobin 12.9 g/dL (12.0-15.5) Hematocrit 38.0 % (36.0-47.0) Mean Corpuscular Volume 89 fL (79-100) Mean Corpuscular Hemoglobin 30 pg (25-35) Mean Corpuscular Hemoglobin Concent 34 g/dL (31-37) Red Cell Distribution Width 16.4 % (11.5-14.5) Platelet Count 348 x10^3/uL (140-400) Neutrophils (%) (Auto) 54 % (31-73) Lymphocytes (%) (Auto) 30 % (24-48) Monocytes (%) (Auto) 9 % (0-9) Eosinophils (%) (Auto) 6 % (0-3) Basophils (%) (Auto) 1 % (0-3) Neutrophils # (Auto) 4.7 x10^3uL (1.8-7.7) Lymphocytes # (Auto) 2.6 x10^3/uL (1.0-4.8) Monocytes # (Auto) 0.8 x10^3/uL (0.0-1.1) Eosinophils # (Auto) 0.5 x10^3/uL (0.0-0.7) Basophils # (Auto) 0.1 x10^3/uL (0.0-0.2) Sodium Level 139 mmol/L (136-145) Potassium Level 3.6 mmol/L (3.5-5.1) Chloride Level 99 mmol/L (98-107) Carbon Dioxide Level 34 mmol/L (21-32) Anion Gap 6 (6-14) Blood Urea Nitrogen 28 mg/dL (7-20) Creatinine 1.1 mg/dL (0.6-1.0) Estimated GFR (Cockcroft-Gault) 50.8 BUN/Creatinine Ratio 25 (6-20) Glucose Level 98 mg/dL (70-99) Calcium Level 8.9 mg/dL (8.5-10.1) Total Bilirubin 0.8 mg/dL (0.2-1.0) Aspartate Amino Transf (AST/SGOT) 33 U/L (15-37) Alanine Aminotransferase (ALT/SGPT) 18 U/L (14-59) Alkaline Phosphatase 176 U/L (46-116) Total Protein 8.1 g/dL (6.4-8.2) Albumin 2.8 g/dL (3.4-5.0) Albumin/Globulin Ratio 0.5 (1.0-1.7) JOSH GANT MD Oct 25, 2016 09:14
--- NOTE | 2016-10-25 09:19 | PDOC3 ---
Discharge Summary* Date of Admission: Oct 23, 2016 Date of Discharge: Oct 25, 2016 Admitting Diagnosis Problems Medical Problems: (1) Altered mental status Status: Acute (2) Opioid overdose Status: Acute Problems: Final Diagnosis 1- change in mental status seem to be due to overdose on medication 2-coronary artery disease with history of coronary artery bypass graft about 6 weeks ago, 3-diabetes mellitus insulin requiring 4-chronic back pain and left shoulder pain 5-left humerus fracture Problems Medical Problems: (1) Altered mental status Status: Acute (2) Opioid overdose Status: Acute CONSULTS cardiology Procedures ,CT head, CXR, shoulder x ray Brief Hospital Course Ms. Chandler is a 60 old F who presented with change mental status, improved with Narcan , had to use narcan drip over night due to recurrent symptoms, has been off since yesterday feels ok, evaluated by cardiology due to elevated troponin, felt to be not significant, home today Disposition/Orders: D/C to Home CONDITION AT DISCHARGE: Improved, Stable Diet: Cardiac, Consistent Carbohydrate Scheduled Alprazolam (Xanax), 1 TAB PO BID Aspirin (Aspirin Ec), 325 MG PO DAILYWBKFT Diclofenac Sodium (Voltaren), 1 GM TP QID, (Reported) Duloxetine Hcl (Cymbalta), 1 CAP PO BID, (Reported) Gabapentin (Gabapentin), 600 MG PO BID, (Reported) Insulin Aspart (Novolog Flexpen), 5 UNIT SQ TIDWMEALS Insulin Detemir (Levemir), 20 UNIT SQ HS Insulin Detemir (Levemir), 12 UNIT SQ QHS, (Reported) Metoprolol Tartrate (Metoprolol Tartrate), 25 MG PO BID Pantoprazole Sodium (Pantoprazole Sodium), 40 MG PO DAILYAC Pentoxifylline (Pentoxifylline), 400 MG PO BIDWMEALS, (Reported) Sennosides/Docusate Sodium (Senna-Time S Tablet), 1 TAB PO BID Varenicline Tartrate (Chantix), 1 MG PO BID, (Reported) Zolpidem Tartrate (Ambien), 1 TAB PO QHS, (Reported) Scheduled PRN Acetaminophen (Tylenol), 650 MG PO PRN Q6HRS PRN for PAIN, (Reported) Oxycodone Hcl (Oxycodone Hcl), 15 MG PO PRN Q6HRS PRN for PAIN, (Reported) Oxycodone Hcl/Acetaminophen (Oxycodone-Acetaminophen 5-325), 1 TAB PO PRN Q4- 6HRS PRN for MILD PAIN Discontinued Medications Aspirin (Aspir-Low), 1 TAB PO DAILY, (Reported) Nicotine (NICODERM CQ 14mg), 1 PATCH TP DAILY, (Reported) Trazodone Hcl (Trazodone Hcl), 100 MG PO HS, (Reported) FOLLOW UP APPOINTMENT: 1 week in office , no Oxycodone Time Spent Total time spent with patient [] minutes for coordination of care, counseling, and education. JOSH GANT MD Oct 25, 2016 09:19
--- NOTE | 2016-10-25 09:46 | PDOC2 ---
CONSULT Date of Consult Date of Consult DATE: 10/25/16 TIME: 09:41 Reason for Consult Reason for Consult: left proximal humerus fracture Identification/Chief Complaint Chief Complaint left shoulder pain Problems: (1) Closed fracture of left proximal humerus Source Source: Chart review, Patient History of Present Illness Reason for Visit: The patient is a 60 year old right-hand dominant female who is well known to me from the office for her left proximal humerus fracture sustained back in july. We are treating her conservatively. She recently had a CABG and was in rehab last time I saw her in the office. We have started therapy on her left arm. She is nearly 2.5 months out from her fracture. She is admitted to the hospital for possible drug overdose. She reports pain in her left shoulder. Past Medical History Cardiovascular: CAD, CHF, HTN, Other Pulmonary: COPD, Pulmonary embolus, Other CENTRAL NERVOUS SYSTEM: Other GI: GERD Heme/Onc: No pertinent hx Hepatobiliary: No pertinent hx Psych: Anxiety, Depression Musculoskeletal: Osteoarthritis, Other Rheumatologic: Fibromyalgia Infectious disease: Other Renal/: No pertinent hx Endocrine: Diabetes Past Surgical History Past Surgical History: Appendectomy, Cholecystectomy, Hysterectomy, Other Family History Family History: Alcohol Abuse, Cancer, Hypertension Social History ALCOHOL: rare Drugs: None Lives: Alone Current Problem List Problem List Problems Medical Problems: (1) Altered mental status Status: Acute (2) Opioid overdose Status: Acute Current Medications Current Medications Current Medications Naloxone HCl (Narcan) 1 mg 1X ONCE IV Last administered on 10/24/16 00:16; Start 10/24/16 at 00:30; Stop 10/24/16 at 00:31; Status DC Naloxone HCl (Narcan) 2 mg STK-MED ONCE .ROUTE ; Start 10/24/16 at 00:00; Stop 10/24/16 at 00:01; Status DC Naloxone HCl (Narcan) 2 mg STK-MED ONCE .ROUTE ; Start 10/24/16 at 00:16; Stop 10/24/16 at 00:17; Status DC Naloxone HCl (Narcan) 1 mg 1X ONCE IV Last administered on 10/24/16 00:45; Start 10/24/16 at 00:45; Stop 10/24/16 at 00:46; Status DC Naloxone HCl 2 mg/ Dextrose 502 ml @ 0 mls/hr 1X ONCE IV Last administered on 10/24/16 00:57; Start 10/24/16 at 01:00; Stop 10/24/16 at 01:01; Status DC Ondansetron HCl (Zofran) 4 mg PRN Q8HRS PRN IV NAUSEA/VOMITING; Start 10/24/16 at 01:30; Stop 10/25/16 at 01:29; Status DC Insulin Aspart (NovoLOG) 0-5 UNITS TIDWMEALS SQ Last administered on 10/24/16 12:13; Start 10/24/16 at 08:00 Dextrose (Dextrose 50%-Water Syringe) 12.5 gm PRN Q15MIN PRN IV SEE COMMENTS; Start 10/24/16 at 01:45 Acetaminophen (Tylenol) 650 mg PRN Q6HRS PRN PO PAIN; Start 10/24/16 at 09:15 Alprazolam (Xanax) 0.5 mg BID PO Last administered on 10/25/16 08:03; Start at 10:00 Aspirin (Ecotrin) 81 mg DAILY PO Last administered on 10/25/16 08:04; Start at 10:00 Insulin Aspart (NovoLOG) 5 units TIDWMEALS SQ Last administered on 10/24/16 17 :22; Start 10/24/16 at 09:30 Metoprolol Tartrate (Lopressor) 25 mg BID PO Last administered on 10/25/16 08: 03; Start 10/24/16 at 10:00 Pantoprazole Sodium (Protonix) 40 mg DAILYAC PO Last administered on 10/25/16 08:03; Start 10/24/16 at 10:00 Pentoxifylline (TRENtal) 400 mg BIDWMEALS PO Last administered on 10/25/16 08: 04; Start 10/24/16 at 10:00 Senna/Docusate Sodium (Senna Plus) 1 tab BID PO ; Start 10/24/16 at 10:00; Stop 10/24/16 at 18:31; Status DC Trazodone HCl (Desyrel) 100 mg HS PO ; Start 10/24/16 at 21:00; Stop 10/24/16 at 21:00; Status DC Duloxetine HCl (Cymbalta) 60 mg BID PO Last administered on 9/15/17at 08:04; Start 10/24/16 at 10:00 Gabapentin (Neurontin) 300 mg TID PO Last administered on 10/25/16 08:04; Start 10/24/16 at 14:00 Insulin Detemir (Levemir) 20 units QHS SQ ; Start 10/24/16 at 21:00; Stop at 21:00; Status DC Insulin Detemir (Levemir) 12 units QHS SQ Last administered on 10/24/16 21:11 ; Start 10/24/16 at 21:00 Senna/Docusate Sodium (Senna Plus) 1 tab PRN BID PRN PO CONSTIPATION; Start at 18:30 Active Scripts Active Senna-Time S Tablet (Sennosides/Docusate Sodium) 1 Each Tablet 1 Tab PO BID sig: one tab BID; hold for loose stools or diarrhea Oxycodone-Acetaminophen 5-325 (Oxycodone Hcl/Acetaminophen) 1 Each Tablet 1 Tab PO PRN Q4-6HRS PRN Metoprolol Tartrate 25 Mg Tablet 25 Mg PO BID SIG: ONE HALF TAB TWICE DAILY AT 0900 AND 2100 Aspirin Ec (Aspirin) 325 Mg Tablet. 325 Mg PO DAILYWBKFT 30 Days Xanax (Alprazolam) 0.5 Mg Tablet 1 Tab PO BID Novolog Flexpen (Insulin Aspart) 100 Unit/1 Ml Insuln.pen 5 Unit SQ TIDWMEALS 30 Days Levemir (Insulin Detemir) 100 Unit/1 Ml Vial 20 Unit SQ HS 30 Days Pantoprazole Sodium 40 Mg Tablet. 40 Mg PO DAILYAC 30 Days Reported Levemir (Insulin Detemir) 100 Unit/1 Ml Vial 12 Unit SQ QHS Tylenol (Acetaminophen) 325 Mg Tablet 650 Mg PO PRN Q6HRS PRN Oxycodone Hcl 15 Mg Tablet 15 Mg PO PRN Q6HRS PRN Chantix (Varenicline Tartrate) 1 Mg Tablet 1 Mg PO BID Cymbalta (Duloxetine Hcl) 60 Mg Capsule.dr 1 Cap PO BID Gabapentin 600 Mg Tablet 600 Mg PO BID Ambien (Zolpidem Tartrate) 10 Mg Tablet 1 Tab PO QHS Pentoxifylline 400 Mg Tablet.er 400 Mg PO BIDWMEALS Voltaren (Diclofenac Sodium) 100 Gm Gel..gram. 1 Gm TP QID Allergies Allergies: Coded Allergies: No Known Medication Allergies (Verified Allergy, Unknown, 10/24/16) hydrocodone (Verified Adverse Reaction, Intermediate, LOOPY, 09/09/16) N/V ROS General: No: Chills, Night Sweats, Fatigue, Malaise, Appetite, Other PSYCHOLOGICAL ROS: YES: Other (drug overdose) Musculoskeletal: Yes Joint Pain, Yes Joint Stiffness Physical Exam General: Alert, Cooperative, No acute distress MUSCULOSKELETAL: No swelling, Abnormal exam of left (shoulder. moves as a unit. decreased range of motion, pain at the shoulder. neurovascularly intact distally. ) Vitals VITALS Vital Signs Date Time Temp Pulse Resp B/P (MAP) Pulse Ox O2 Delivery O2 Flow Rate FiO2 10/25/16 08:03 140/69 10/25/16 07:00 74 16 96 Room Air 10/24/16 23:59 97.9 97.9 Labs Labs Laboratory Tests Test 10/23/16 23:20 10/23/16 23:59 10/24/16 04:56 10/24/16 07:00 White Blood Count 12.8 x10^3/uL (4.0-11.0) Red Blood Count 4.30 x10^6/uL (3.50-5.40) Hemoglobin 12.8 g/dL (12.0-15.5) Hematocrit 39.4 % (36.0-47.0) Mean Corpuscular Volume 92 fL (79-100) Mean Corpuscular Hemoglobin 30 pg (25-35) Mean Corpuscular Hemoglobin Concent 32 g/dL (31-37) Red Cell Distribution Width 16.1 % (11.5-14.5) Platelet Count 377 x10^3/uL (140-400) Neutrophils (%) (Auto) 64 % (31-73) Lymphocytes (%) (Auto) 24 % (24-48) Monocytes (%) (Auto) 8 % (0-9) Eosinophils (%) (Auto) 4 % (0-3) Basophils (%) (Auto) 0 % (0-3) Neutrophils # (Auto) 8.2 x10^3uL (1.8-7.7) Lymphocytes # (Auto) 3.0 x10^3/uL (1.0-4.8) Monocytes # (Auto) 1.1 x10^3/uL (0.0-1.1) Eosinophils # (Auto) 0.6 x10^3/uL (0.0-0.7) Basophils # (Auto) 0.0 x10^3/uL (0.0-0.2) Sodium Level 131 mmol/L (136-145) Potassium Level 4.1 mmol/L (3.5-5.1) Chloride Level 91 mmol/L (98-107) Carbon Dioxide Level 36 mmol/L (21-32) Anion Gap 4 (6-14) Blood Urea Nitrogen 33 mg/dL (7-20) Creatinine 1.3 mg/dL (0.6-1.0) Estimated GFR (Cockcroft-Gault) 41.9 BUN/Creatinine Ratio 25 (6-20) Glucose Level 223 mg/dL (70-99) Lactic Acid Level 2.1 mmol/L (0.4-2.0) 1.4 mmol/L (0.4-2.0) Calcium Level 9.9 mg/dL (8.5-10.1) Total Bilirubin 1.1 mg/dL (0.2-1.0) Aspartate Amino Transf (AST/SGOT) 37 U/L (15-37) Alanine Aminotransferase (ALT/SGPT) 19 U/L (14-59) Alkaline Phosphatase 227 U/L (46-116) Troponin I Quantitative 0.108 ng/mL (0.000-0.055) TC-Gut-Y-Type Natriuretic Peptide 81054 pg/mL (0-124) Total Protein 9.5 g/dL (6.4-8.2) Albumin 3.5 g/dL (3.4-5.0) Albumin/Globulin Ratio 0.6 (1.0-1.7) Urine Collection Type U cath Urine Color Yellow Urine Clarity Clear Urine pH 5.0 Urine Specific Rattan 1.015 Urine Protein 100 mg/dL (NEG-TRACE) Urine Glucose (UA) Negative mg/dL (NEG) Urine Ketones (Stick) Negative mg/dL (NEG) Urine Blood Negative (NEG) Urine Nitrite Negative (NEG) Urine Bilirubin Small (NEG) Urine Urobilinogen Dipstick 0.2 mg/dL (0.2 mg/dL) Urine Leukocyte Esterase Negative (NEG) Urine RBC Occ /HPF (0-2) Urine WBC Occ /HPF (0-4) Urine Squamous Epithelial Cells Few /LPF Urine Amorphous Sediment Present /HPF Urine Bacteria 0 /HPF (0-FEW) Urine Hyaline Casts Moderate /HPF Urine Mucus Slight /LPF Urine Opiates Screen Pos (NEG) Urine Methadone Screen Neg (NEG) Urine Barbiturates Neg (NEG) Urine Phencyclidine Screen Neg (NEG) Urine Amphetamine/Methamphetamine Neg (NEG) Urine Benzodiazepines Screen Pos (NEG) Urine Cocaine Screen Neg (NEG) Urine Cannabinoids Screen Neg (NEG) Urine Ethyl Alcohol Neg (NEG) Nasal Screen MRSA (PCR) Negative (Negative) Test 10/24/16 08:49 10/24/16 11:10 10/24/16 12:08 10/24/16 16:31 Glucose (Fingerstick) 355 mg/dL (70-99) 400 mg/dL (70-99) 150 mg/dL (70-99) Troponin I Quantitative 0.063 ng/mL (0.000-0.055) Test 10/24/16 21:03 10/25/16 04:45 Glucose (Fingerstick) 130 mg/dL (70-99) White Blood Count 8.7 x10^3/uL (4.0-11.0) Red Blood Count 4.26 x10^6/uL (3.50-5.40) Hemoglobin 12.9 g/dL (12.0-15.5) Hematocrit 38.0 % (36.0-47.0) Mean Corpuscular Volume 89 fL (79-100) Mean Corpuscular Hemoglobin 30 pg (25-35) Mean Corpuscular Hemoglobin Concent 34 g/dL (31-37) Red Cell Distribution Width 16.4 % (11.5-14.5) Platelet Count 348 x10^3/uL (140-400) Neutrophils (%) (Auto) 54 % (31-73) Lymphocytes (%) (Auto) 30 % (24-48) Monocytes (%) (Auto) 9 % (0-9) Eosinophils (%) (Auto) 6 % (0-3) Basophils (%) (Auto) 1 % (0-3) Neutrophils # (Auto) 4.7 x10^3uL (1.8-7.7) Lymphocytes # (Auto) 2.6 x10^3/uL (1.0-4.8) Monocytes # (Auto) 0.8 x10^3/uL (0.0-1.1) Eosinophils # (Auto) 0.5 x10^3/uL (0.0-0.7) Basophils # (Auto) 0.1 x10^3/uL (0.0-0.2) Sodium Level 139 mmol/L (136-145) Potassium Level 3.6 mmol/L (3.5-5.1) Chloride Level 99 mmol/L (98-107) Carbon Dioxide Level 34 mmol/L (21-32) Anion Gap 6 (6-14) Blood Urea Nitrogen 28 mg/dL (7-20) Creatinine 1.1 mg/dL (0.6-1.0) Estimated GFR (Cockcroft-Gault) 50.8 BUN/Creatinine Ratio 25 (6-20) Glucose Level 98 mg/dL (70-99) Calcium Level 8.9 mg/dL (8.5-10.1) Total Bilirubin 0.8 mg/dL (0.2-1.0) Aspartate Amino Transf (AST/SGOT) 33 U/L (15-37) Alanine Aminotransferase (ALT/SGPT) 18 U/L (14-59) Alkaline Phosphatase 176 U/L (46-116) Total Protein 8.1 g/dL (6.4-8.2) Albumin 2.8 g/dL (3.4-5.0) Albumin/Globulin Ratio 0.5 (1.0-1.7) Laboratory Tests Test 10/24/16 11:10 10/24/16 12:08 10/24/16 16:31 10/24/16 21:03 Troponin I Quantitative 0.063 ng/mL (0.000-0.055) Glucose (Fingerstick) 400 mg/dL (70-99) 150 mg/dL (70-99) 130 mg/dL (70-99) Test 10/25/16 04:45 White Blood Count 8.7 x10^3/uL (4.0-11.0) Red Blood Count 4.26 x10^6/uL (3.50-5.40) Hemoglobin 12.9 g/dL (12.0-15.5) Hematocrit 38.0 % (36.0-47.0) Mean Corpuscular Volume 89 fL (79-100) Mean Corpuscular Hemoglobin 30 pg (25-35) Mean Corpuscular Hemoglobin Concent 34 g/dL (31-37) Red Cell Distribution Width 16.4 % (11.5-14.5) Platelet Count 348 x10^3/uL (140-400) Neutrophils (%) (Auto) 54 % (31-73) Lymphocytes (%) (Auto) 30 % (24-48) Monocytes (%) (Auto) 9 % (0-9) Eosinophils (%) (Auto) 6 % (0-3) Basophils (%) (Auto) 1 % (0-3) Neutrophils # (Auto) 4.7 x10^3uL (1.8-7.7) Lymphocytes # (Auto) 2.6 x10^3/uL (1.0-4.8) Monocytes # (Auto) 0.8 x10^3/uL (0.0-1.1) Eosinophils # (Auto) 0.5 x10^3/uL (0.0-0.7) Basophils # (Auto) 0.1 x10^3/uL (0.0-0.2) Sodium Level 139 mmol/L (136-145) Potassium Level 3.6 mmol/L (3.5-5.1) Chloride Level 99 mmol/L (98-107) Carbon Dioxide Level 34 mmol/L (21-32) Anion Gap 6 (6-14) Blood Urea Nitrogen 28 mg/dL (7-20) Creatinine 1.1 mg/dL (0.6-1.0) Estimated GFR (Cockcroft-Gault) 50.8 BUN/Creatinine Ratio 25 (6-20) Glucose Level 98 mg/dL (70-99) Calcium Level 8.9 mg/dL (8.5-10.1) Total Bilirubin 0.8 mg/dL (0.2-1.0) Aspartate Amino Transf (AST/SGOT) 33 U/L (15-37) Alanine Aminotransferase (ALT/SGPT) 18 U/L (14-59) Alkaline Phosphatase 176 U/L (46-116) Total Protein 8.1 g/dL (6.4-8.2) Albumin 2.8 g/dL (3.4-5.0) Albumin/Globulin Ratio 0.5 (1.0-1.7) Images Images Xrays of the left proximal humerus reveal maintained alignment, no bridging callous, but robust callous formation. head is well located on the axillary view. Assessment/Plan Assessment/Plan The patient is a 60 year old right-hand dominant female who presents to the hospital with a drug overdose. I am consulted to see her regarding her left proximal humerus fracture She is still 1 lb wt limit in that arm. Continue with outpatient PHYSICAL THERAPY. She should still come see me in the office at her regularly scheduled appointment. No new reccs, fracture appears to be healing well. ROLF AL MD Oct 25, 2016 09:46
[2016-10-25] MEDS ORDERED: INSU100V13 SQ (11:11)
--- NOTE | 2016-10-28 15:52 | RAD ---
Left shoulder, 3 views, 10/24/2016: History: Follow-up fracture An AP and 2 axillary views of the left shoulder are just now presented for review. Comparison is made to a study from 09/11/2016. There is a pathologic-appearing fracture of the proximal left humerus. There is dystrophic calcification and callus at the fracture site. There is mild unchanged medial displacement of the major distal fracture fragment. Today's additional axillary views show that there is also mild anterior displacement of the major distal fracture fragment. There are sclerotic changes along the margins at the fracture site suggesting nonunion or developing pseudarthrosis.
== END 2016-10-25 14:20 | disposition home or self-care (01) | DRG 918 ==
LOC: ER 23:12 → 1 WEST ICU 10-24 00:59
PROVIDERS: ADMIT Internal Medicine; ATTEND Internal Medicine
DX: T40.2X1A Poisoning by other opioids, accidental (unintentional), initial encounter (principal); I11.0 Hypertensive heart disease with heart failure; I50.9 Heart failure, unspecified; S42.202A Unspecified fracture of upper end of left humerus, initial encounter for closed fracture; F32.9 Major depressive disorder, single episode, unspecified; M19.90 Unspecified osteoarthritis, unspecified site; F41.9 Anxiety disorder, unspecified; M25.512 Pain in left shoulder; R40.0 Somnolence; M54.9 Dorsalgia, unspecified; R74.8 Abnormal levels of other serum enzymes; I25.10 Atherosclerotic heart disease of native coronary artery without angina pectoris; Z95.1 Presence of aortocoronary bypass graft; G89.29 Other chronic pain; J44.9 Chronic obstructive pulmonary disease, unspecified; K21.9 Gastro-esophageal reflux disease without esophagitis; M79.7 Fibromyalgia; E11.9 Type 2 diabetes mellitus without complications; Z81.1 Family history of alcohol abuse and dependence; Z80.9 Family history of malignant neoplasm, unspecified; Z82.49 Family history of ischemic heart disease and other diseases of the circulatory system; Z60.2 Problems related to living alone; Z90.710 Acquired absence of both cervix and uterus; Z79.4 Long term (current) use of insulin; R09.02 Hypoxemia; Z90.49 Acquired absence of other specified parts of digestive tract; Z86.711 Personal history of pulmonary embolism; Y92.89 Other specified places as the place of occurrence of the external cause
CPT/HCPCS: 36415; 70450; 71010; 73030; 80053; 80307; 81001; 82962; 83605; 83880; 84484; 85025; 87641; 93005; 96365; 96375; 96376; J1815; J2310; 99285-25; G0479

== ENCOUNTER → 2017-07-02 | Outpatient (CLI) | payer OTHER | END | disposition home or self-care (01) | LOC: KCIC CT 14:15 | DX: Z12.31 Encounter for screening mammogram for malignant neoplasm of breast (principal); Z13.820 Encounter for screening for osteoporosis; Z78.0 Asymptomatic menopausal state; M81.0 Age-related osteoporosis without current pathological fracture; R91.8 Other nonspecific abnormal finding of lung field | CPT/HCPCS: 71250; 77067; 77080 ==

== ENCOUNTER → 2017-08-14 | Outpatient (CLI) | payer OTHER | END | disposition home or self-care (01) | LOC: PNCL 13:17 | DX: M51.16 Intervertebral disc disorders with radiculopathy, lumbar region (principal); M47.897 Other spondylosis, lumbosacral region; M79.1 Myalgia; I11.0 Hypertensive heart disease with heart failure; I50.9 Heart failure, unspecified; E11.9 Type 2 diabetes mellitus without complications; E78.5 Hyperlipidemia, unspecified | CPT/HCPCS: 99212 ==

== ENCOUNTER → 2017-10-27 | Outpatient (CLI) | payer OTHER ==
[2016-10-25 11:00] VITALS: BP 151/77
[~2017-10-27] MED LIST changes: +IOHEXOL 300 MG/ML 100ML VIAL. IV ONE; -LOSA25TA4 PO; +LOSA25TA5 PO; +METO-239 PO; -PENT400T2 PO; +PENT400T4 PO; +TRAM50TA PO; +TRAZ-85 PO; -TRAZ50TA15 PO
--- NOTE | 2017-10-27 15:32 | KCIC ---
CT CHEST W/CONTRAST Indication: Lung nodule, enlarged lymph nodes on previous CT, fall last week with left-sided chest pain, intermittent smoker for 45 years Technique: Postcontrast CT imaging was performed of the chest, multiplanar reconstruction images submitted. One or more of the following individualized dose reduction techniques were utilized for this examination: 1. Automated exposure control 2. Adjustment of the mA and/or kV according to patient size 3. Use of iterative reconstruction technique. Contrast: 95 cc Omnipaque 300 Comparison: July 02, 2017 Findings: There again multiple bilateral axillary nodes, largest on the left about 0.8 cm short axis dimension overall similar. There again has been a median sternotomy. There is some similar nonspecific density about the bilateral clavicular heads medially greater on the right. There are again mediastinal nodes, largest subcarinal node about 1.4 cm short axis dimension which is similar. Right precarinal node about 1 cm short axis dimension is also similar. There are right hilar nodes with the largest about 0.8 cm short axis dimension, probably unchanged. There is coronary calcification. There is no pericardial effusion. There is new small left pleural effusion. There is no pneumothorax. There are now slightly displaced left posterior fifth, sixth, seventh, eighth, and ninth rib fractures, some of which are fractured in more than one location. There is atelectasis adjacent to the effusion of the left lower lobe. There is nonspecific density in the mainstem bronchi as well as the trachea likely due to mucus. Thoracic aortic caliber is within normal limits without intraluminal flap. Thoracic vertebral body stature is similar. There is degenerative disc disease greater inferiorly of the thoracic spine. There is left shoulder arthroplasty. A couple of previously seen foci of nodularity along the left major fissure as seen on images 90 and 92 are stable with the largest of these about 0.5 cm. 0.2 to 0.3 cm left upper lobe nodule axial image 114 series 2 is stable. There is similar fullness of the left adrenal gland. IMPRESSION: 1. There are multiple, somewhat displaced, acute left rib fractures. There is small left pleural effusion with adjacent atelectasis. 2. There is similar nonspecific mediastinal lymphadenopathy as well as axillary lymphadenopathy. 3. There is nonspecific density in the trachea as well as in the mainstem bronchi bilaterally more likely due to mucus. 4. There are small pulmonary nodules, optional 12 month follow-up as per revised Fleischner guidelines if increased risk factors for neoplasm. Electronically signed by: Kameron Aquino MD (10/27/2017 3:28 PM) [id number]
== END | disposition home or self-care (01) ==
LOC: KCIC CT 13:03
PROVIDERS: ATTEND Physician Assistant Surgical
DX: J98.11 Atelectasis (principal); M51.34 Other intervertebral disc degeneration, thoracic region; R91.8 Other nonspecific abnormal finding of lung field; R59.0 Localized enlarged lymph nodes; I10 Essential (primary) hypertension; E11.9 Type 2 diabetes mellitus without complications; E78.5 Hyperlipidemia, unspecified; K21.9 Gastro-esophageal reflux disease without esophagitis; I25.10 Atherosclerotic heart disease of native coronary artery without angina pectoris; J44.9 Chronic obstructive pulmonary disease, unspecified; E87.6 Hypokalemia; Z86.2 Personal history of diseases of the blood and blood-forming organs and certain disorders involving the immune mechanism; Z86.711 Personal history of pulmonary embolism; Z86.718 Personal history of other venous thrombosis and embolism; Z87.891 Personal history of nicotine dependence; Z86.79 Personal history of other diseases of the circulatory system; Z90.710 Acquired absence of both cervix and uterus; Z90.49 Acquired absence of other specified parts of digestive tract; Z82.49 Family history of ischemic heart disease and other diseases of the circulatory system; Z80.8 Family history of malignant neoplasm of other organs or systems; Z80.0 Family history of malignant neoplasm of digestive organs; Z81.1 Family history of alcohol abuse and dependence
CPT/HCPCS: 71260; Q9967

== ENCOUNTER → 2017-11-17 | Outpatient (CLI) | payer OTHER ==
[2016-10-25 11:00] VITALS: BP 151/77
[~2017-11-17] MED LIST changes: -IOHEXOL 300 MG/ML 100ML VIAL. IV ONE
--- NOTE | 2017-11-17 22:29 | PAIN ---
DATE OF SERVICE: 11/17/2017 PROGRESS NOTE FOR PAIN CLINIC DIAGNOSES: 1. Lumbar and lumbosacral spondylosis. 2. Lumbar degenerative disk disease. 3. Myofascial pain. HISTORY OF PRESENT ILLNESS: The patient is a 62-year-old female who returns for followup status post previous lumbar facet injections as well as radiofrequency injection in May 2016. The patient did well with this temporarily, the pain has returned and we had planned back in August of this year to get the lumbar facet joint injections repeated. However, the patient was unable to make this work with her schedule and reports that otherwise we have not seen her since August 14 of this year. The patient did have a fall several weeks ago and had some fractured ribs on the left side and has a CT scan showing these as well as some enlarged lymph nodes as well, being followed by her primary care office. The patient reports significant pain in the left side of the ribs but that is getting better with time. Main complaint is her low back pain bilaterally with some increased with extension and axial loading of the lumbar spine and also some increased pain with right lateral rotation greater than 10 degrees but not the left and with forward flexion, the pain is actually decreased. The patient reports it is worse with sitting for prolonged periods, walking, standing, changing positions, especially getting up from a sitting position. 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 The patient reports the pain is 8 on a scale of 10 at its worst, 6 on average, 4 at its least and is a 6 today. The patient reports tingling, burning, cramping, sharp, tight, too much radiating in the low back, constant, becoming more severe but not into the lower extremity significantly. The patient does have some pain in the right calf, which seems to be secondary but not related. The patient reports it awakens her from sleep at least every 2 hours. She is not sleeping well at night. She used to reposition but has difficulty getting back to sleep. PHYSICAL EXAMINATION: VITAL SIGNS: The patient's blood pressure 154/73, pulse 70, respirations 18, temperature 98.5 degrees Fahrenheit, height 5 feet 1 inch and weight is 130 pounds. GENERAL: The patient is awake, alert, oriented, appropriate and very pleasant demeanor. HEENT: Head is normocephalic and atraumatic. Extraocular movements are intact and symmetrical. Oral cavity: Mucous membranes are moist and pink. Dentition is intact. NECK: Shows anterior throat supple without palpable lymphadenopathy noted. Swallow reflex symmetrical. CHEST: Shows normal on inspection. Breath sounds clear to auscultation bilaterally. HEART: Shows S1 and S2 clear. Well-healed sternotomy scar is noted. ABDOMEN: Soft, nontender and nondistended. No palpable organomegaly is noted. No rebound. BACK: The patient's back shows spine grossly in the midline, normal-appearing thoracic kyphosis and some minor flattening of the lumbar lordotic curvature. Lumbar paraspinous muscle shows symmetrical on inspection and palpation shows some moderate tenderness throughout the upper, middle, lower distribution of the paraspinous muscles without radiation. No trigger points. No asymmetry of the musculature. No atrophy or hypertrophy. The patient shows good rotation of motion but with the extension greater than 10 degrees with axial loading of the lumbar spine shows significant pain across the low back bilaterally. This is true with right lateral rotation of motion greater than 10 degrees, less so with left and decreased with forward flexion. EXTREMITIES: The patient's lower extremities show deep tendon reflexes 1+ in the patellar and tendo-calcaneus tendons. Motor exam is strong with 5/5 dorsiflexion, extension, quadriceps and hamstring flexion and symmetrical. The patient's lower extremity pulses are 1+/4 in the posterior tibial without edema bilaterally. The patient has negative Homans sign bilaterally in the calves as well. Options were discussed with the patient. The patient's old chart was reviewed as well as her current medication regimen updated. Current review of systems updated today as well. We will preauthorize the patient for lumbar facet joint injections at L4-L5 and L5-S1 bilaterally as the patient has had good results with these in the past and had preauthorization, however, had due to time, we will see if we can get this extended and have her return for bilateral lumbar L4-L5 and L5-S1 facet joint injections and the patient also given prescription for oxycodone 15 mg #50 and she reports she is using this once a day, occasionally twice but rarely more than that. The patient was given instruction as well as side effects to be aware of with medication. She has had appropriate K-TRACS reporting as well as appropriate urinalysis to date. We will have her return in approximately 2 weeks for bilateral facet joint injections at that time. SAIMA MORELOS MD DR: SHALA/britta JOB#: [id number] / [id number]
== END | disposition home or self-care (01) ==
LOC: PNCL 13:50
PROVIDERS: ATTEND Anesthesiology
DX: M51.36 Other intervertebral disc degeneration, lumbar region (principal); M47.897 Other spondylosis, lumbosacral region; M47.896 Other spondylosis, lumbar region; M79.18 Myalgia, other site
CPT/HCPCS: G0463